=== PATIENT | female | born 1965 | race Caucasian/White ===

== ENCOUNTER → 2016-05-06 | Outpatient (CLI) | payer OTHER ==
[2016-05-06 16:37] VITALS: BP 124/65; PULSE 79; RESP 14; TEMP 98.5; BMI 25.2
[2016-05-06 17:16] LABS: CH 27.6; CHCM 32.4; HCT 42.6 % (34.0-46.0); HDW 2.44; HGB 13.9 gm/dL (11.4-16.0); MCH 27.9 pg (25.0-35.0); MCHC 32.6 g/dL (31.0-37.0); MCV 85.7 fL (80.0-100.0); RBC 4.97 m/uL (3.80-5.40); RDW 13.4 % (11.5-15.5); WBC 9.6 k/uL (3.8-10.6)
[2016-05-06 17:32] LABS: Partial Thromboplastin Time 25.8 sec (22.0-30.0); Prothrombin Time 10.6 sec (9.0-12.0)
[2016-05-06 17:51] LABS: ALT 32 U/L (9-52); AST 21 U/L (14-36); Alkaline Phosphatase 88 U/L (38-126); Anion Gap 9 mmol/L; Blood Urea Nitrogen 13 mg/dL (7-17); Calcium 10.5 mg/dL (8.4-10.2); Carbon Dioxide 30 mmol/L (22-30); Chloride 102 mmol/L (98-107); Cholesterol 210 mg/dL (<200); Glucose 134 mg/dL (74-99); HDL Cholesterol 80 mg/dL (40-60); Iron 76 ug/dL (37-170); Non-African American GFR(MDRD) >60 (>60 ml/min/1.73 sqM); Phosphorous 4.4 mg/dL (2.5-4.5); Potassium 4.5 mmol/L (3.5-5.1); Sodium 141 mmol/L (137-145); Total Bilirubin 0.3 mg/dL (0.2-1.3); Total Protein 7.4 g/dL (6.3-8.2); Triglycerides 64 mg/dL (<150)
[2016-05-06 18:01] LABS: % Iron Saturation 17.6 % (20-50); Prealbumin 28 mg/dL (18-36); Total Iron Binding Capacity 433 ug/dL (265-497)
[2016-05-06 18:57] LABS: Vitamin B12 733 pg/mL (239-931)
[2016-05-06 19:58] LABS: Hemoglobin A1C 5.7 % (4.2-6.1)
[2016-05-13 14:02] LABS: Selenium 196 mcg/L (63-160)
--- NOTE | 2016-06-24 22:32 | P.PN ---
Progress Note - Text DATE OF SERVICE: 05/06/2016 CHIEF COMPLAINT: Panniculitis. HISTORY OF PRESENT ILLNESS: Vianca Goodwin is a 51-year-old female who initially came to the [facility]ariat[facility] in 2011. It has been 5 years. At her height of 5 feet 7-1/2 inches, her heaviest personal weight was 267 pounds. Today she comes in with moderate weight loss down to 163 pounds. She has lost 104 pounds. Percent excess weight loss is well over 100%. Her body mass index has been reduced from 41.3 down to 25.1. Total BMI point reduction is 16.1. Since her last evaluation over 2 years ago she has lost another 20 pounds. She reports multiple changes in her medications including for her depression which is being treated. Separately, she has undergone over 3 to 4-year history of chronic panniculitis. She has undergone treatment topical including systemic with persistent symptoms. Separately, she also reports having abdominal pain along the epigastrium after eating. She has no troubles with liquids. She reports that she is only eating once a day. As a result of her moderate weight loss, she states that her hair is thinner. Now she presents for further evaluation and management. PAST MEDICAL HISTORY: 1. Diabetes, type 2, resolved. 2. Depression. 3. Iron deficiency anemia. 4. COPD. 5. Obstructive sleep apnea, resolved. 6. Osteoarthritis. 7. Panniculitis. PAST SURGICAL HISTORY: 1. Status post Thomas-en-Y gastric bypass. 2. Laparoscopic cholecystectomy. 3. Laparoscopic ventral hernia repair. 4. Upper endoscopy. 5. Colonoscopy. MEDICATIONS: 1. Lamictal. 2. Hydroxyzine. 3. BuSpar. 4. Multivitamin. 5. Motrin. 6. Nexium. 7. Cymbalta. 8. Vitamin B. 9. Calcium. 10. Dulcolax. 11. Aspirin. ALLERGIES: ENVIRONMENTAL. SOCIAL HISTORY: Still actively smoking. Denies any social alcohol use. FAMILY HISTORY: Father recently last year during complications of heart disease. REVIEW OF SYSTEMS: CONSTITUTIONAL: Highest body weight of 267 pounds for a 5 foot 7-1/2 frame. Current weight of 163 pounds. Total weight loss after 5 years of 104 pounds. Percent excess weight loss of 95%. Body mass index reduced from 41.3 down to 25.1. Total BMI point reduction is 16.1. Weight loss in the last 2 years of another 19 pounds. PSYCH: History of depression including bipolar disorder, stable. GASTROINTESTINAL: Reports increased epigastric abdominal pain. Also reports dysphagia to solid foods. HEENT: Denies any troubles with vision or hearing. ENDOCRINE: Resolution of diabetes, type 2. Denies any thyroid disorders. RESPIRATORY: Resolution of obstructive sleep apnea. No reports of pneumonias. CARDIAC: History of dyslipidemia, now resolved. Does have resolution of her hypertension. MUSCULOSKELETAL: Has osteoarthritis, including fibromyalgia. NEURO: No reports of strokes or seizure disorders. HEMATOLOGIC: No reports of DVTs or pulmonary emboli. BREASTS: Prior history of breast biopsies, including abnormal mammograms, that have come back benign. PHYSICAL EXAM: VITAL SIGNS: 98.5, 79, 14, 125/65, 5 feet 7-1/2 inches, 163 pounds. Body mass index of 25.2. ABDOMEN: Soft. Minimal tenderness along the epigastrium. Pannus over 8 pounds. Hyperemia consistent with mild panniculitis. Pannus extends over pubis by over 4 cm. GENERAL: Well-developed pleasant female in no acute distress. HEENT: No scleral icterus. Extraocular movements grossly intact. Head is atraumatic normocephalic. CHEST: Unlabored respirations. Equal bilateral excursions. CARDIOVASCULAR: Regular rate. Regular rhythm. MUSCULOSKELETAL: No clubbing, cyanosis or edema. NEURO: No focal or lateralizing signs. Cranial nerves II through XII grossly intact. PSYCH: Appropriate affect. Alert and oriented to person, place and time. ASSESSMENT: 1. History of panniculitis, medically refractory to treatment. 2. Status post massive weight loss, 104 pounds after 5 years. 3. Morbid obesity due to excess calories, now resolved. 4. Body mass index reduced from 41.3 down to 25.2. 5. Diabetes, type 2, resolved. 6. Hypertension, resolved. 7. Dyslipidemia, resolved. 8. Depression. 9. Bipolar disorder. 10. Chronic tobacco use. 11. Status post Thomas-en-Y gastric bypass. 12. Recurrent panniculitis despite treatment. 13. History of osteoarthritis. 14. Epigastric abdominal pain. 15. Dysphagia. 16. Elevated selenium . 17. Hair loss. PLAN: 1. With her epigastric abdominal pain including dysphagia to solid foods, she is high risk of gastrojejunal stricture. Would recommend upper endoscopy with balloon dilatation. 2. She is over the age of 50 and recommend colonic screening with a colonoscopy. 3. Recommend a bariatric metabolic panel for evaluation of nutritional deficiencies. Recommend correction of her nutritional deficiencies prior to any panniculectomy. 4. As she has over 3+ year history of chronic panniculitis despite treatment, recommend a panniculectomy. She does have history of previous tobacco use. She will need a urine nicotine test. 5. Inpatient hospitalization anticipated. 6. She was also forewarned about pain following her procedure for a panniculectomy which will need to be managed by a pain specialist as well. She is on chronic pain meds. 7. Risk of panniculectomy complications including bleeding, infection, flap failure, cosmetic deformity, placement of drains, abdominal wall seromas, moderate pain following her surgery were described to her in detail for which she demonstrated understanding. 8. A panniculectomy packet was also given to her as well. ADDENDUM: Bariatric metabolic panel was reviewed, demonstrating platelet count elevated at 476. Hemoglobin was normal at 13.9. Glucose elevated at 134. Hemoglobin A1c was moderately reduced at 5.7. Calcium was elevated at 10.5. Percent iron saturation was low at 17.6. Cholesterol was elevated at 210. LDL elevated at 117. HDL elevated at 80. Vitamin D was normal at 30. Selenium was elevated at 196. With her history of hair loss, recommend discontinued any further exposure to selenium in her food. She does have elevated calcium for which repeat calcium is advised. Otherwise, her diabetes type 2 is completely resolved. Again, she is also pending urine nicotine test.
== END | disposition home or self-care (01) ==
LOC: BARWHC3 15:10
PROVIDERS: ATTEND Surgery Plastic and Reconstructive Surgery
DX: Z48.815 Encounter for surgical aftercare following surgery on the digestive system (principal); Z98.84 Bariatric surgery status; E66.01 Morbid (severe) obesity due to excess calories; E21.1 Secondary hyperparathyroidism, not elsewhere classified; E89.1 Postprocedural hypoinsulinemia; D50.8 Other iron deficiency anemias; E44.0 Moderate protein-calorie malnutrition; E55.9 Vitamin D deficiency, unspecified; K74.1 Hepatic sclerosis; N19 Unspecified kidney failure; K50.90 Crohn's disease, unspecified, without complications
CPT/HCPCS: 84255; 84134; 84425; 80061; 80053; 82607; 82728; 83036; 82525; 82746; 83540; 83550; 83735; 84100; 84443; 84590; 84630; 85027; 85610; 85730; 82306; 83970; G0463; 99211

== ENCOUNTER 2016-06-24 07:35 | Day surgery (SDC) | payer OTHER ==
[2016-06-19 12:48] VITALS: BMI 24.7
[~2016-06-24 07:35] MED LIST: LACTATED RINGERS 1,000 ML IV SCH
--- NOTE | 2016-06-24 07:56 | P.GSHP ---
History of Present Illness H&P Date: 06/24/16 CHIEF COMPLAINT: GERD HISTORY OF PRESENT ILLNESS: The patient is a 51-year-old male who presents reports gastroesophageal reflux disease. Upper endoscopy was offered for further evaluation and management. PAST MEDICAL HISTORY: Please see list. PAST SURGICAL HISTORY: Please see list. MEDICATIONS: Please see list. ALLERGIES: Please see list. SOCIAL HISTORY: No illicit drug use FAMILY HISTORY: No reports of Crohn disease or ulcerative colitis. REVIEW OF ORGAN SYSTEMS: CONSTITUTIONAL: No reports of fevers or chills. GI: Denies any blood in stools or constipation. PHYSICAL EXAM: VITAL SIGNS: Stable GENERAL: Well-developed and pleasant in no acute distress. HEENT: No scleral icterus. Extraocular movements grossly intact. Moist buccal mucosa. NECK: Supple without lymphadenopathy. CHEST: Unlabored respirations. Equal bilateral excursions. CARDIOVASCULAR: Regular rate and rhythm. Distal 2+ pulses. ABDOMEN: Soft, nondistended. MUSCULOSKELETAL: No clubbing, cyanosis, or edema. ASSESSMENT: 1. Gastroesophageal reflux disease PLAN: 1. Recommend proceeding with an upper endoscopy Past Medical History Past Medical History: Cancer, Diabetes Mellitus, GERD/Reflux, Hearing Disorder / Deafness, Musculoskeletal Disorder, Osteoarthritis (OA) Additional Past Medical History / Comment(s): PAST HX OF DM PRIOR TO WGT LOSS, NOW POSS HYPOGYLCEMIA. BACK PAIN. Skin CA. GETS NAUSEA WHEN EATING OFTEN, ALOT OF HEARTBURN. History of Any Multi-Drug Resistant Organisms: None Reported Past Surgical History: Bariatric Surgery, Breast Surgery, Section, Cholecystectomy, Hernia Repair, Orthopedic Surgery, Uterine Ablation Additional Past Surgical History / Comment(s): RT Knee SCOPE. KAILEY MULT TOES Surgery. Sinus Surgery. Gastric Bypass 2013. Breast biopsy. CERVICAL CONE PROC. PAIN PROC BACK, NECK. Past Anesthesia/Blood Transfusion Reactions: Previous Problems w/ Anesthesia, Motion Sickness Additional Past Anesthesia/Blood Transfusion Reaction / Comment(s): Woke up once during anesthesia. Mom has difficulty coming out of anesthesia and low b/p. Past Psychological History: Anxiety, Depression, Panic Disorder Additional Psychological History / Comment(s): patient states she has been diagnosed with "Bipolar depression" Smoking Status: Current every day smoker Past Alcohol Use History: Occasional Additional Past Alcohol Use History / Comment(s): Started Smoking at age 16, 1 ppd. Past Drug Use History: Marijuana Additional Drug Use History / Comment(s): OCC USE, NONE RECENTLY. - Past Family History Father History Unknown: Yes Family Medical History: Asthma, Cancer, Congestive Heart Failure (CHF), Diabetes Mellitus, Eye Disorder, Hearing Disorder / Deafness, Hypertension, Seizure Disorder, Skin Disorder, Vascular Disorder Additional Family Medical History / Comment(s): Father also had Leukemia, emphsyma, arthritis, with kidney failure Medications and Allergies Home Medications Medication Instructions Recorded Confirmed Type DULoxetine HCL [Cymbalta] 120 mg PO DAILY 08/02/13 06/19/16 History Esomeprazole Magnesium [NexIUM] 40 mg PO BID 08/02/13 06/19/16 History Aspirin 81 mg PO DAILY 03/29/14 06/19/16 History Ibuprofen [Motrin] 600 mg PO BID PRN 05/02/15 06/19/16 History busPIRone HCl [Buspar] 30 mg PO BID 11/22/15 06/19/16 History Bisacodyl [Dulcolax] 5 mg PO DAILY PRN 12/17/15 06/19/16 History Cholecalciferol [Vitamin D3] 2,000 unit PO DAILY 12/17/15 06/19/16 History hydrOXYzine PAMOATE [Hydroxyzine 25 mg PO BID 12/17/15 06/19/16 History Pamoate] lamoTRIgine [LaMICtal] 200 mg PO DAILY 12/17/15 06/19/16 History Calcium Carbonate [Calcium] 500 mg PO DAILY 05/07/16 06/19/16 History Multivitamins, Thera [Multivitamin] 1 tab PO DAILY 05/07/16 06/19/16 History ARIPiprazole [Abilify] 10 mg PO DAILY 06/19/16 06/19/16 History Biotin (Unknown Dose) 1 cap PO DAILY 06/19/16 History Iron (Unknown Dose) 1 tab PO DAILY 06/19/16 History Loratadine [Claritin] 10 mg PO DAILY 06/19/16 06/19/16 History Allergies Allergy/AdvReac Type Severity Reaction Status Date / Time grass pollen-perennial rye, Allergy ITCHY,WATERY Verified 06/19/16 12:24 standar EYES AND [grass poll-perennial NOSE rye,std] rivaroxaban [From Xarelto] Allergy Unknown Verified 06/19/16 12:24 tape Allergy tears Uncoded 06/19/16 12:24 skin,rash, states "paper tape is ok"
[2016-06-24 07:58] VITALS: TEMP 98.1
[2016-06-24] MEDS ORDERED: LIDOCAINE 1% 20 ML VIAL (10MG/ML) FOR IV START INTRADERMA ONE (08:01)
[2016-06-24] MEDS ORDERED: PROPOFOL 10 MG/ML 20 ML VIAL IV ONE (08:03)
[2016-06-24 08:12] LABS: Glucose,Whole Blood 104 mg/dL (75-99)
--- NOTE | 2016-06-24 08:26 | P.PCN ---
Date of Procedure: 06/24/16 Description of Procedure: PREOPERATIVE DIAGNOSIS: Dysphagia. Nausea with vomiting. POSTOPERATIVE DIAGNOSIS: Dysphagia. Nausea with vomiting. Gastrojejunal stricture. Esophageal tertiary contractions. OPERATION: Esophagogastrojejunoscopy with balloon dilatation,20 mm. SURGEON: Agatha Jaeger MD ANESTHESIA: MAC. INDICATIONS: The patient is a 51-year-old female who presents with a history of dysphagia, gastric bypass including intermittent nausea and vomiting. Benefits and risks of the procedure were described. Informed consent was obtained. DESCRIPTION: The patient was brought into the endoscopy suite and laid in the left lateral decubitus position. After a timeout was confirmed, the procedure was initiated. An Olympus gastroscope was passed along the posterior oropharynx down to the distal esophagus where the squamocolumnar junction was unremarkable. The gastric pouch was entered. A gastrojejunal stricture of 16 mm was found as the adult gastroscope was 9.5 mm in size. A Goodoc balloon dilator was placed through the scope. Final insufflation up to 20 mm was performed with a total of 2 minutes. The scope was advanced up to 60 cm from the incisors into the Thomas limb. The mucosa of the gastrojejunal anastomosis was intact. No chronic gastrojejunal marginal ulcer was encountered. No full-thickness injury was encountered. The GI tract was desufflated. The patient tolerated the procedure well. FINDINGS: Squamocolumnar junction unremarkable at 40 cm. Stricture of approximately 16 mm encountered. No chronic gastrojejunal ulceration encountered. Successful balloon dilatation to 20 mm. Diaphragmatic hiatus at 42 cm. Gastric pouch 3 cm. Blind jejunal limb of 7 cm. Multiple esophageal tertiary contractions suspicious for esophageal dysmotility. RECOMMENDATIONS: Upper endoscopy as needed. Plan - Discharge Summary Discharge Medication List DULoxetine HCL [Cymbalta] 120 mg PO DAILY 08/02/13 [History] Esomeprazole Magnesium [NexIUM] 40 mg PO BID 08/02/13 [History] Aspirin 81 mg PO DAILY 03/29/14 [History] Ibuprofen [Motrin] 600 mg PO BID PRN 05/02/15 [History] busPIRone HCl [Buspar] 30 mg PO BID 11/22/15 [History] Bisacodyl [Dulcolax] 5 mg PO DAILY PRN 12/17/15 [History] Cholecalciferol [Vitamin D3] 2,000 unit PO DAILY 12/17/15 [History] hydrOXYzine PAMOATE [Hydroxyzine Pamoate] 25 mg PO BID 12/17/15 [History] lamoTRIgine [LaMICtal] 200 mg PO DAILY 12/17/15 [History] Calcium Carbonate [Calcium] 500 mg PO DAILY 05/07/16 [History] Multivitamins, Thera [Multivitamin] 1 tab PO DAILY 05/07/16 [History] ARIPiprazole [Abilify] 10 mg PO DAILY 06/19/16 [History] Biotin (Unknown Dose) 1 cap PO DAILY 06/19/16 [History] Iron (Unknown Dose) 1 tab PO DAILY 06/19/16 [History] Loratadine [Claritin] 10 mg PO DAILY 06/19/16 [History]
[2016-06-24 08:45] VITALS: BP 113/56; PULSE 80; RESP 16
== END 2016-06-24 09:11 | disposition home or self-care (01) ==
LOC: ORWHC2ENDO 07:35
PROVIDERS: ATTEND Surgery Plastic and Reconstructive Surgery
DX: K31.89 Other diseases of stomach and duodenum (principal); K22.8 Other specified diseases of esophagus; Z98.84 Bariatric surgery status; K21.9 Gastro-esophageal reflux disease without esophagitis; M19.90 Unspecified osteoarthritis, unspecified site; F31.9 Bipolar disorder, unspecified; F41.9 Anxiety disorder, unspecified; F41.0 Panic disorder [episodic paroxysmal anxiety]; F17.200 Nicotine dependence, unspecified, uncomplicated; Z79.82 Long term (current) use of aspirin; Z79.899 Other long term (current) drug therapy; Z88.8 Allergy status to other drugs, medicaments and biological substances; Z91.09 Other allergy status, other than to drugs and biological substances
CPT/HCPCS: 81025; 43245; J2704; C1726; 43249

== ENCOUNTER → 2016-07-22 | Outpatient (CLI) | payer OTHER ==
[2016-07-22 13:39] VITALS: BP 117/61; PULSE 97; RESP 16; TEMP 98.5; BMI 27.3
--- NOTE | 2016-09-13 10:34 | PN ---
DATE OF SERVICE: 07/22/2016 CHIEF COMPLAINT: Panniculitis. HISTORY OF PRESENT ILLNESS: Vianca Goodwin is a 51-year-old female who has been to the [facility] back in 2011. At her height of 5 feet 7-1/2 inches, her ideal body weight is 163 pounds. Her personal heaviest weight was 267 pounds. Today she comes in weighing 177 pounds. She has maintained at least a 90 pound weight loss. Since her last visit 3 months ago she has actually gained 14 pounds. She reports personal stressors. Percent excess weight loss is 82%. Body mass index is reduced from 41.3 down to 27.4. She is only 19 pounds overweight. Total BMI point reduction is 14. Separately, she reports intermittent gastroesophageal reflux disease and reports smoking again. PAST MEDICAL HISTORY: 1. Diabetes, type 2, resolved. 2. Depression. 3. Iron deficiency anemia. 4. COPD. 5. Obstructive sleep apnea, resolved. 6. Osteoarthritis. 7. Panniculitis. PAST SURGICAL HISTORY: 1. Status post Thomas-en-Y gastric bypass. 2. Laparoscopic cholecystectomy. 3. Laparoscopic ventral hernia repair. 4. Upper endoscopy. 5. Colonoscopy. MEDICATIONS: 1. Lamictal. 2. Hydroxyzine. 3. BuSpar. 4. Multivitamin. 5. Motrin. 6. Nexium. 7. Cymbalta. 8. Vitamin B. 9. Calcium. 10. Dulcolax. 11. Aspirin. ALLERGIES: ENVIRONMENTAL. SOCIAL HISTORY: Still actively smoking. Denies any social alcohol use. FAMILY HISTORY: Father recently last year during complications of heart disease. REVIEW OF SYSTEMS: CONSTITUTIONAL: At her height of 5 feet 7-1/2 inches, her ideal body weight is 163 pounds. Her personal heaviest weight was 267 pounds. Today she comes in weighing 177 pounds. She has maintained at least a 90 pound weight loss. Since her last visit 3 months ago she has actually gained 14 pounds. She reports personal stressors. Percent excess weight loss is 82%. Body mass index is reduced from 41.3 down to 27.4. She is only 19 pounds overweight. Total BMI point reduction is 14. PSYCH: History of depression including bipolar disorder, stable. GASTROINTESTINAL: Reports increased epigastric abdominal pain. Also reports dysphagia to solid foods. HEENT: Denies any troubles with vision or hearing. ENDOCRINE: Resolution of diabetes, type 2. Denies any thyroid disorders. RESPIRATORY: Resolution of obstructive sleep apnea. No reports of pneumonias. CARDIAC: History of dyslipidemia, now resolved. Does have resolution of her hypertension. MUSCULOSKELETAL: Has osteoarthritis, including fibromyalgia. NEURO: No reports of strokes or seizure disorders. HEMATOLOGIC: No reports of DVTs or pulmonary emboli. BREASTS: Prior history of breast biopsies, including abnormal mammograms, that have come back benign. PHYSICAL EXAM: VITAL SIGNS: 98.5, 97, 16, 117/61, 5 foot 7 1/2, 177 pounds. Body mass index 27.4. ABDOMEN: Hyperemia along the skin consistent with panniculitis. Pannus over 8 pounds. Pannus extends over pubis by over 4 cm. GENERAL: Well-developed pleasant female in no acute distress. HEENT: No scleral icterus. Extraocular movements grossly intact. Head is atraumatic normocephalic. CHEST: Unlabored respirations. Equal bilateral excursions. CARDIOVASCULAR: Regular rate. Regular rhythm. MUSCULOSKELETAL: No clubbing, cyanosis or edema. NEURO: No focal or lateralizing signs. Cranial nerves II through XII grossly intact. PSYCH: Appropriate affect. Alert and oriented to person, place and time. ASSESSMENT: 1. History of panniculitis, medically refractory to treatment. 2. Status post massive weight loss of 90 pounds. 3. Morbid obesity due to excess calories, now resolved. 4. Body mass index reduced from 41.3 down to 27.4. 5. Diabetes, type 2, resolved. 6. Hypertension, resolved. 7. Dyslipidemia, resolved. 8. Depression. 9. Bipolar disorder. 10. Chronic tobacco use. 11. Status post Thomas-en-Y gastric bypass. 12. History of osteoarthritis. PLAN: 1, On further discussion, she does report intermittent troubles with swallowing. Actually, she may benefit from manometry. 2. She is also seeking a panniculectomy as she has had long-standing 5 year history of chronic panniculitis with poor response to medical treatment and therapies using Nystatin powder. 3. She was advised that prior to any surgical intervention especially with regards to panniculectomy, that she would need complete tobacco cessation preoperatively, at least by 4 weeks including postoperatively to minimize risk for a flap failure or infection. 4. Recommend follow-up upon completion of her nicotine use. 5. Recommend urine nicotine test as well. ADDENDUM: Bariatric metabolic panel was reviewed, demonstrating hemoglobin was normal at 13.9. Glucose was elevated at 134. Hemoglobin A1c was 5.7%. Calcium is elevated at 10.5. Percent iron saturation was 17.6%. Cholesterol was elevated at 210. LDL was elevated at 117. HDL was protective and elevated at 80. Vitamin D was within low normal at 30. MILE JOHNSON DO [facility] [place] [facility]
== END | disposition home or self-care (01) ==
LOC: BARWHC3 13:17
PROVIDERS: ATTEND Surgery Plastic and Reconstructive Surgery
DX: Z48.815 Encounter for surgical aftercare following surgery on the digestive system (principal); M79.3 Panniculitis, unspecified; Z98.84 Bariatric surgery status; Z79.899 Other long term (current) drug therapy; F17.200 Nicotine dependence, unspecified, uncomplicated; Z91.048 Other nonmedicinal substance allergy status; Z68.27 Body mass index [BMI] 27.0-27.9, adult; F32.9 Major depressive disorder, single episode, unspecified
CPT/HCPCS: 99211

== ENCOUNTER → 2016-08-11 | Outpatient (CLI) | payer OTHER ==
--- NOTE | 2016-08-11 21:26 | PN ---
Reason for the follow-up: Insomnia. Vianca is a 51-year-old female patient. She is having issues with insomnia and for that reason, she came in for re-evaluation. Note that the patient was evaluated for obstructive sleep apnea back in 2013 and her sleep study was negative. At that time, she used to weigh around 217 pounds and it seems that in the patient has continued to lose weight and currently she is down to 183. As such, with her ongoing weight loss I doubt that she may have an underlying sleep breathing disorder and this has been essentially ruled out. The patient however, has history of chronic anxiety and depression and she is on a multitude of medications to control anxiety including combination of Abilify, Cymbalta, Lamictal and Buspar. Note that she is able to induce sleep, however, she wakes up every hour or 2 and sometimes she has difficulty in going back to sleep. As such, her sleep is fragmented and she is waking up constantly and she is feeling tired and fatigued during the day and this seems to be affecting her quality of life. Note that the patient was treated with clonazepam for many years and at one point, she was up to 6 mg of clonazepam. There was a concern that this was making her drowsy and sleepy and she was slurring on this high dose of clonazepam. Based on that, she was admitted to [facility] where she was weaned off clonazepam successfully. Currently she is not taking any form of benzodiazepines. Since she came off Clonazepam, insomnia symptoms got worse. Based on that, the patient was switched to Seroquel which gave her significant side effects and she ended up quitting the treatment. At this point in time, she is going to bed between 8 to 11:00 p.m., wakes up at 6:00 a.m. in the morning. Yet she is not averaging more than 4 to 5 hours of sleep. She is looking for alternatives. As mentioned, she has history of chronic anxiety, depression and bipolar disorder. She is obese and she has undergone previous bariatric surgery. No restlessness in the lower extremities. No caffeine intake. No head trauma. No meningitis. No substance abuse other than the ones mentioned above. MEDICATIONS: 1. Abilify. 2. Cymbalta. 3. Lamictal. 4. Buspar. 5. Vistaril. 6. Nexium. Vitals: BP 113/73, pulse 80, respirations 16, temperature 98.6, saturation 96% on room air. BMI is 29.5. Weight 183. Height is 5 foot 6. Neck size 15-3/4 inches. GENERAL APPEARANCE: Calm, comfortable. HEENT: Negative for JVD. There is no goiter, neck masses. LUNGS: Clear to auscultation. HEART: Sounds are regular rate and rhythm. Normal S1, S2. No S3, no S4. No murmurs. ABDOMEN: Soft, nontender. No organomegaly. EXTREMITIES: No edema. There is no cyanosis, or clubbing at this point. IMPRESSION: 1. Chronic insomnia. 2. Chronic benzodiazepine dependence recovered and the patient is currently off clonazepam. 3. Worsening insomnia probably related to Clonazepam withdrawal. ( ) the patient is on a combination of Abilify, Cymbalta, Lamictal and Buspar. 4. Chronic anxiety disorder. 5. Chronic bipolar disorder/depression. 6. Limit number of hours of sleep with chronic fatigue and tiredness and sleepiness during the day. PLAN: 1. We will avoid using of benzodiazepines. We will try the patient on 10 mg of Ambien on a trial basis to improve her sleep maintenance. 2. Continue Abilify, Cymbalta, Lamictal and Buspar. 3. Follow up with psychiatry. 4. Follow up with me. 5. No need for sleep study. We will make further adjustments of medication based on overall clinical response.
== END | disposition home or self-care (01) ==
LOC: SLEEP 14:21
PROVIDERS: ATTEND Internal Medicine Critical Care Medicine
DX: F51.04 Psychophysiologic insomnia (principal); F41.9 Anxiety disorder, unspecified; F31.9 Bipolar disorder, unspecified; Z79.899 Other long term (current) drug therapy; E66.9 Obesity, unspecified; Z68.29 Body mass index [BMI] 29.0-29.9, adult; Z98.84 Bariatric surgery status

== ENCOUNTER → 2016-10-07 | Outpatient (CLI) | payer OTHER ==
[2016-10-07 11:18] VITALS: BP 109/73; PULSE 79; RESP 16; TEMP 97.1
--- NOTE | 2016-10-07 11:26 | P.PN ---
Progress Note - Text Patient returns for followup for chronic back pain with radiation to both legs. Patient has not been to our clinic in nearly two years, after undergoing bilateral lumbar RFA and previously LESIs and SIJ injections. She was discharged from narcotic agreement secondary to her violation and overuse of medication. She returns to our clinic with similar complaints of pain and requesting repeat lumbar RFA. Patient continues on occasional tramadol medications for pain from PCP with good relief. Patient denies adverse drug effects from medications. Today, pt denies new-onset weakness, bowel/bladder incontinence, or any other signs or symptoms of cauda equina syndrome. There are no signs of acute intoxication, and no indications of medication diversion or overuse. In addition to above, 13-point review of systems is also negative for chest pain , shortness of breath, changes in vision, changes in hearing, new onset weakness , abdominal pain, diarrhea, extreme fatigue, malaise, fever, skin changes, homicidal or suicidal ideation, or bowel or bladder incontinence. Vital Signs: Reviewed in EMR Gen: WDWN, AAOx3, NAD HEENT: NCAT, EOMI, hearing grossly normal Pulm: resp unlabored Abd: soft, NT, ND Neck: supple, trachea midline ROM in flexion lumbar spine: reduced ROM in extension lumbar spine: reduced Lumbar paravertebral tenderness: + Facet loading: ++ bilateral SI joint tenderness: + bilateral R > L Santana's test: + R > L Straight leg raise: neg Lower extremity: decreased ROM dorsiflexion/plantarflexion strength, hip flexion/extension, and knee flexion/extension secondary to pain Neuro: CN II-XII grossly intact, muscle strength lower extremities PRESERVED Imaging: Reviewed in EMR Assessment: 1. lumbar spondylosis without myelopathy 2. SIJ dysfunction 3. chronic pain syndrome Plan: 1. Explanation: Opioid and psychological risk scores were reviewed. Diagnoses , prognoses, and multiple treatment options including but not limited to physical therapy, interventional therapies, adjuvant medical therapies, narcotic medication therapies, and surgery were discussed with the patient and all questions were answered to the patient's satisfaction. 2. Opioid agreement: no opioids prescribed today 3. Counseling: The patient was counseled extensively on SMOKING CESSATION, BODY MASS INDEX, EXERCISE. Specifically, the patient was instructed regarding the importance of smoking cessation, weight control, and exercise in the context of both chronic pain and overall health. 4. Procedures: R lumbar RFA, then left 5. Consultations: None 6. Investigations: repeat MRI lumbar spine prior to RFA 7. Medications: none prescribed 8. Disposition: f/u for procedure as scheduled PQRS measures: 1-Patient's medications are documented in the chart. 2-Tobacco use is positive, counseling given 3-Patient has not had a pneumococcal vaccine. 4-Advanced care planning discussed, patient unable to give. 5-Opioid contract NOT signed with the patient. 6-Pain positive, follow-up visit or procedure scheduled 7-Patient's blood pressure measured and documented, and within normal limits. 8-Patient's weight was measured, and body mass index ABOVE the normal limits, and counseling was done. Patient instructed to follow up with PCP. 9-Patient WAS NOT identified as an unhealthy alcohol user.
== END | disposition home or self-care (01) ==
LOC: PNWHC3 10:54
PROVIDERS: ATTEND Anesthesiology
DX: M51.34 Other intervertebral disc degeneration, thoracic region (principal); M47.816 Spondylosis without myelopathy or radiculopathy, lumbar region; M53.3 Sacrococcygeal disorders, not elsewhere classified; G89.4 Chronic pain syndrome
CPT/HCPCS: 99211

== ENCOUNTER → 2016-10-14 | Outpatient (CLI) | payer OTHER ==
--- NOTE | 2016-10-14 08:02 | MR ---
EXAMINATION TYPE: MR lumbar spine wo con DATE OF EXAM: 10/14/2016 7:04 AM COMPARISON: 06/25/2014 HISTORY: lumbar spondylosis Multiplanar, MultiSpin echo imaging of the lumbar spine was performed. L1-L2: Normal disc appearance without desiccation. No herniation, protrusion or disc bulging. No ca nal stenosis is present. Foramina are patent bilaterally. L2-L3: Normal disc appearance without desiccation. No herniation, protrusion or disc bulging. No ca nal stenosis is present. Foramina are patent bilaterally. L3-L4: Normal disc appearance without desiccation. No herniation, protrusion or disc bulging. No ca nal stenosis is present. Foramina are patent bilaterally. L4-L5: There is mild decreased signal and loss of height compatible with mild degenerative disc disea se. Very mild posterocentral disc bulge is noted without herniation protrusion or central stenosis. T he visualized neural foramina are patent bilaterally. L5-S1: Normal disc appearance without desiccation. No herniation, protrusion or disc bulging. No ca nal stenosis is present. Foramina are patent bilaterally. Lumbar segments are intact. No paraspinal masses are identified. Conus medullaris has a normal appe arance. 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 IMPRESSION: 1. Degenerative disc disease with disc bulging at L4-5.
== END | disposition home or self-care (01) ==
LOC: RADMRIMAIN 06:23
PROVIDERS: ATTEND Anesthesiology
DX: M51.36 Other intervertebral disc degeneration, lumbar region (principal); M51.26 Other intervertebral disc displacement, lumbar region
CPT/HCPCS: 72148

== ENCOUNTER → 2016-10-16 | Outpatient (CLI) | payer OTHER ==
[2016-10-16 08:53] LABS: CH 27.9; CHCM 32.9; HCT 42.7 % (34.0-46.0); HDW 2.45; MCH 28.1 pg (25.0-35.0); MCHC 32.9 g/dL (31.0-37.0); MCV 85.3 fL (80.0-100.0); Mean Platelet Volume 7.7; RDW 14.6 % (11.5-15.5); WBC 13.2 k/uL (3.8-10.6)
[2016-10-16 09:00] LABS: Appearance,Urine Cloudy (Clear); Bacteria,Urine Rare /hpf; Bilirubin,Urine Negative (Negative); Glucose,Urine (UA) Negative (Negative); Ketones,Urine Negative (Negative); Leukocyte Esterase,Urine Negative (Negative); Mucus,Urine Moderate /hpf; Nitrite,Urine Negative (Negative); Particle Count 6982; Protein,Urine Trace (Negative); Specific Gravity,Urine 1.017 (1.001-1.035); Squamous Epithelial Cell,Urine 14 /hpf (0-4); UA Billing (MACRO vs. MICRO) MICRO; WBC,Urine 2 /hpf (0-5)
[2016-10-16 09:02] LABS: ALT 31 U/L (9-52); AST 20 U/L (14-36); Alkaline Phosphatase 79 U/L (38-126); Anion Gap 6 mmol/L; Blood Urea Nitrogen 9 mg/dL (7-17); Calcium 9.8 mg/dL (8.4-10.2); Carbon Dioxide 31 mmol/L (22-30); Chloride 104 mmol/L (98-107); Cholesterol 203 mg/dL (<200); Glucose 100 mg/dL (74-99); HDL Cholesterol 68 mg/dL (40-60); Non-African American GFR(MDRD) >60 (>60 ml/min/1.73 sqM); Potassium 4.9 mmol/L (3.5-5.1); Sodium 141 mmol/L (137-145); Total Bilirubin 0.5 mg/dL (0.2-1.3); Total Protein 6.5 g/dL (6.3-8.2); Triglycerides 153 mg/dL (<150)
[2016-10-16 11:39] LABS: Hemoglobin A1C 6.2 % (4.2-6.1)
[2016-10-16 16:10] LABS: Urine Creatinine 184.7 mg/dL
== END | disposition home or self-care (01) ==
LOC: LABWHC1 08:09
PROVIDERS: ATTEND Family Medicine
DX: Z00.00 Encounter for general adult medical examination without abnormal findings (principal); E11.9 Type 2 diabetes mellitus without complications; F31.60 Bipolar disorder, current episode mixed, unspecified; Z79.899 Other long term (current) drug therapy
CPT/HCPCS: 36415; 80053; 80061; 81001; 82043; 82306; 82570; 83036; 84439; 84443; 85027

== ENCOUNTER → 2016-10-27 | Outpatient (CLI) | payer OTHER ==
[2016-10-27 15:37] LABS: Basophils # (A) 0.1 k/uL (0-0.2); Basophils % (A) 1 %; CH 28.4; CHCM 32.7; Eosinophils # (A) 0.5 k/uL (0-0.7); Eosinophils % (A) 4 %; HCT 41.4 % (34.0-46.0); HDW 2.37; HGB 13.2 gm/dL (11.4-16.0); Luc # (Auto) 0.26; Luc % (Auto) 2; Lymphocytes # (A) 2.3 k/uL (1.0-4.8); Lymphocytes % (A) 22 %; MCH 27.9 pg (25.0-35.0); MCV 87.1 fL (80.0-100.0); Mean Platelet Volume 7.7; Monocytes # (A) 0.9 k/uL (0-1.0); Monocytes % (A) 8 %; Neutrophils # (A) 6.8 k/uL (1.3-7.7); Neutrophils % (A) 63 %; RBC 4.75 m/uL (3.80-5.40); RDW 14.9 % (11.5-15.5); WBC 10.8 k/uL (3.8-10.6); WBC (Perox) 10.61
== END ==
LOC: LABWHC1 15:02
PROVIDERS: ATTEND Family Medicine
DX: R89.9 Unspecified abnormal finding in specimens from other organs, systems and tissues (principal)
CPT/HCPCS: 36415; 85025

== ENCOUNTER → 2016-11-06 | Outpatient (CLI) | payer OTHER ==
--- NOTE | 2016-11-10 07:43 | MM ---
Reason for exam: screening (asymptomatic). Last mammogram was performed 2 years ago. History: Patient has history of other cancer at age 46. Family history of breast cancer in maternal grandmother. Benign US breast aspiration ea add LT of the left breast, November 30, 2014. Benign US breast aspiration ea add LT of the left breast, November 30, 2014. Benign US breast aspiration single LT of the left breast, November 30, 2014. Benign US breast aspiration single RT of the right breast, November 30, 2014. Benign right mammotome panel of the right breast, May 29, 2013. Physical Findings: A clinical breast exam by your physician is recommended on an annual basis and results should be correlated with mammographic findings. MG Screening Mammo w CAD Bilateral CC and MLO view(s) were taken. Prior study comparison: November 09, 2014, bilateral MG diagnostic mammo w CAD K[facility]. December 26, 2013, bilateral MG diagnostic mammo w CAD [facility]. The breast tissue is extremely dense which could obscure a lesion on mammography. Finding: There are typically benign equal density (isodense), circumscribed round masses located 12 cm from the nipple in the upper outer quadrant of both breasts, an enlarging areas. There is a chronic nodularity bilaterally. New finding since November 09, 2014 and December 26, 2013. ASSESSMENT: Incomplete: need additional imaging evaluation, BI-RAD 0 RECOMMENDATION: Ultrasound of the left breast. [facility] will attempt to contact patient to return for ultrasound.
== END | disposition home or self-care (01) ==
LOC: RADMAMWWP 07:14
PROVIDERS: ATTEND Family Medicine
DX: Z12.31 Encounter for screening mammogram for malignant neoplasm of breast (principal)

== ENCOUNTER → 2016-11-11 | Outpatient (CLI) | payer OTHER ==
--- NOTE | 2016-11-11 10:03 | USB ---
Reason for exam: additional evaluation requested from abnormal screening. History: Patient has history of other cancer at age 46. Family history of breast cancer in maternal grandmother. Benign US breast aspiration ea add LT of the left breast, November 30, 2014. Benign US breast aspiration ea add LT of the left breast, November 30, 2014. Benign US breast aspiration single LT of the left breast, November 30, 2014. Benign US breast aspiration single RT of the right breast, November 30, 2014. Benign right mammotome panel of the right breast, May 29, 2013. Physical Findings: Nurse Summary: bilateral palpables (nurse kp). US Breast Workup Limited KAILEY Right breast ultrasound demonstrates a 1.4 x 0.6 x 1.1cm oval, cystic lesion at 9 o'clock, a 1.6 x 0.9 x 1.8cm oval, cystic lesion at 10 o'clock, a 1.4 x 1.0 x 1.1cm oval, lobular, cystic lesion at 11 o'clock and a 1.3 x 0.6 x 1.2cm lobular, cystic lesion at 1 o'clock. Left breast ultrasound demonstrates a 2.0 x 1.3 x 2.5cm oval, cystic lesion at 12 o'clock, a 1.5 x 1.0 x 1.4cm oval, cystic lesion at 2 o'clock, a 1.9 x 0.9 x 1.4cm cystic lesion at 2 o'clock and a 0.9 x 0.9 x 1.3cm cystic lesion at 3 o'clock. All cysts. No suspicious findings. These results were verbally communicated with the patient and result sheet given to the patient on 11/11/16. ASSESSMENT: Benign, BI-RAD 2 RECOMMENDATION: Return to routine screening mammogram schedule for both breasts.
== END | disposition home or self-care (01) ==
LOC: RADUSWWP 08:20
PROVIDERS: ATTEND Family Medicine
DX: R92.8 Other abnormal and inconclusive findings on diagnostic imaging of breast (principal)

== ENCOUNTER → 2017-02-16 | Outpatient (CLI) | payer OTHER ==
[2017-02-16 13:02] LABS: CH 27.4; CHCM 32.2; HCT 44.7 % (34.0-46.0); HDW 2.46; HGB 14.6 gm/dL (11.4-16.0); MCHC 32.6 g/dL (31.0-37.0); MCV 85.7 fL (80.0-100.0); Mean Platelet Volume 7.9; RBC 5.21 m/uL (3.80-5.40); RDW 14.5 % (11.5-15.5); WBC 9.6 k/uL (3.8-10.6)
[2017-02-16 13:07] LABS: Appearance,Urine Cloudy (Clear); Bacteria,Urine Occasional /hpf; Bilirubin,Urine Negative (Negative); Glucose,Urine (UA) Negative (Negative); Ketones,Urine Negative (Negative); Leukocyte Esterase,Urine Negative (Negative); Mucus,Urine Rare /hpf; Nitrite,Urine Negative (Negative); PH, Urine 7.5 (5.0-8.0); Particle Count 12714; Protein,Urine Trace (Negative); Specific Gravity,Urine 1.018 (1.001-1.035); Squamous Epithelial Cell,Urine 19 /hpf (0-4); UA Billing (MACRO vs. MICRO) MICRO; WBC,Urine 9 /hpf (0-5)
[2017-02-19 10:03] LABS: Lyme IgG/IgM Interp NEGATIVE (NEGATIVE)
== END | disposition home or self-care (01) ==
LOC: LABWHC1 12:21
PROVIDERS: ATTEND Psychiatry & Neurology Psychiatry
DX: E03.9 Hypothyroidism, unspecified (principal); E11.9 Type 2 diabetes mellitus without complications
CPT/HCPCS: 36415; 80306; 81001; 83001; 83036; 84165; 84443; 84460; 85027; 86618

== ENCOUNTER → 2017-02-19 | Outpatient (CLI) | payer OTHER | END | disposition home or self-care (01) | LOC: LABWHC1 12:07 | PROVIDERS: ATTEND Family Medicine | DX: E03.9 Hypothyroidism, unspecified (principal) | CPT/HCPCS: 36415; 84439; 84443; 84481 ==

== ENCOUNTER → 2017-05-12 | Outpatient (CLI) | payer OTHER ==
--- NOTE | 2017-05-12 11:57 | USB ---
Reason for exam: clinical finding. History: Patient has history of other cancer at age 46. Family history of breast cancer in maternal grandmother. Benign US breast aspiration ea add LT of the left breast, November 30, 2014. Benign US breast aspiration ea add LT of the left breast, November 30, 2014. Benign US breast aspiration single LT of the left breast, November 30, 2014. Benign US breast aspiration single RT of the right breast, November 30, 2014. Benign right mammotome panel of the right breast, May 29, 2013. Indicated problem(s): palpable abnormality in both breasts. Physical Findings: Nurse Summary: bilateral palpables (nurse dw). US Breast BILAT Right breast ultrasound includes all four quadrants, the retroareolar region and axilla. Finding demonstrates several oval, cystic lesions measuring 0.9 x 0.8 x 0.5cm at 1 o'clock (simple cyst), 0.5 x 0.6 x 0.4cm at 6 o'clock, 0.9 x 1.1 x 0.8cm at 9 o'clock, 0.3 x 0.4 x 0.4cm at 10 o'clock, 1.1 x 1.3 x 0.4cm at 10 o'clock, 1.8 x 1.4 x 0.8cm at 11 o'clock, 1.0 x 0.9 x 0.9cm at 11 o'clock and 1.2 x 0.8 x 0.7cm at 11:30 BB. Left breast ultrasound includes all four quadrants, the retroareolar region and axilla. Finding demonstrates several oval, cystic lesion measuring 2.0 x 1.8 x 1.5cm at 12 o'clock, 1.9 x 2.3 x 1.4cm at 1 o'clock, 1.6 x 1.8 x 1.3cm at 2 o'clock and 2.0 x 1.4 x 1.4cm at 10 o'clock. All benign appearing cysts. These results were verbally communicated with the patient and result sheet given to the patient on 05/12/17. ASSESSMENT: Benign, BI-RAD 2 RECOMMENDATION: Return to routine screening mammogram schedule for both breasts.
[2017-05-12 12:56] LABS: T4, Free (Free Thyroxine) 0.93 ng/dL (0.78-2.19)
== END | disposition home or self-care (01) ==
LOC: RADUSWWP 09:45
PROVIDERS: ATTEND Family Medicine
DX: N63.0 Unspecified lump in unspecified breast (principal); R94.6 Abnormal results of thyroid function studies
CPT/HCPCS: 36415; 84439; 84443; 84481

== ENCOUNTER → 2017-05-18 | Outpatient (CLI) | payer OTHER ==
[2017-05-18 10:59] LABS: HCT 45.9 % (34.0-46.0); HGB 14.5 gm/dL (11.4-16.0); MCH 27.1 pg (25.0-35.0); MCHC 31.6 g/dL (31.0-37.0); MCV 85.8 fL (80.0-100.0); Mean Platelet Volume 6.9; Platelet Count 438 k/uL (150-450); RBC 5.35 m/uL (3.80-5.40); RDW 13.1 % (11.5-15.5); WBC 9.4 k/uL (3.8-10.6)
[2017-05-18 11:06] LABS: ALT 25 U/L (9-52); AST 20 U/L (14-36); Albumin 4.7 g/dL (3.5-5.0); Alkaline Phosphatase 84 U/L (38-126); Anion Gap 10 mmol/L; Blood Urea Nitrogen 10 mg/dL (7-17); Calcium 10.1 mg/dL (8.4-10.2); Carbon Dioxide 29 mmol/L (22-30); Chloride 103 mmol/L (98-107); Cholesterol 239 mg/dL (<200); Glucose 109 mg/dL (74-99); HDL Cholesterol 69 mg/dL (40-60); LDL Cholesterol,Calculated 142 mg/dL (0-99); Potassium 4.5 mmol/L (3.5-5.1); Sodium 142 mmol/L (137-145); Total Bilirubin 0.5 mg/dL (0.2-1.3); Total Protein 7.5 g/dL (6.3-8.2); Triglycerides 139 mg/dL (<150)
[2017-05-18 11:43] LABS: Appearance,Urine Cloudy (Clear); Bilirubin,Urine Negative (Negative); Blood,Urine Negative (Negative); Color,Urine Yellow; Glucose,Urine (UA) Negative (Negative); Ketones,Urine Negative (Negative); Leukocyte Esterase,Urine Negative (Negative); Mucus,Urine Many /hpf; Nitrite,Urine Negative (Negative); Protein,Urine 1+ (Negative); RBC,Urine 2 /hpf (0-5); Specific Gravity,Urine 1.021 (1.001-1.035); Squamous Epithelial Cell,Urine 24 /hpf (0-4); WBC,Urine 2 /hpf (0-5)
[2017-05-18 16:38] LABS: Vitamin D 25 Hydroxy 26.8 ng/mL (30.0-100.0)
[2017-05-18 18:12] LABS: Hepatitis C IgG Antibody Non-Reactive (Non-Reactive)
[2017-05-18 22:29] LABS: Hemoglobin A1C 5.7 % (4.0-6.0)
== END | disposition home or self-care (01) ==
LOC: LABWHC1 10:01
PROVIDERS: ATTEND Family Medicine
DX: Z00.00 Encounter for general adult medical examination without abnormal findings (principal); E11.9 Type 2 diabetes mellitus without complications; R68.2 Dry mouth, unspecified
CPT/HCPCS: 36415; 80053; 80061; 81001; 82043; 82306; 82570; 83036; 84443; 85027; 86235; 86803

== ENCOUNTER → 2017-06-28 | Outpatient (CLI) | payer OTHER ==
--- NOTE | 2017-06-28 13:15 | XR ---
EXAMINATION TYPE: XR lumbosacral spine min 4V DATE OF EXAM: 06/28/2017 CLINICAL HISTORY: pain COMPARISON: NONE TECHNIQUE: Frontal, lateral, and oblique images of the lumbar spine are obtained. FINDINGS: There are 5 lumbar type vertebral bodies identified. The lumbar spine shows satisfactory alignment without evidence of acute fracture or dislocation. Vertebral body heights are within normal limits. Moderate degenerative disc space narrowing. Moderate lumbar facet joint arthropathy. Ventral spondylosis evident. The overlying soft tissue appears unremarkable. IMPRESSION: No acute fracture or dislocation is seen in the lumbar spine.ICD 10 NO FRACTURE, INITIAL EVALUATION
[2017-06-28 13:40] LABS: ALT 20 U/L (9-52); AST 20 U/L (14-36); Albumin 4.8 g/dL (3.5-5.0); Alkaline Phosphatase 80 U/L (38-126); Anion Gap 13 mmol/L; Blood Urea Nitrogen 12 mg/dL (7-17); Calcium 10.7 mg/dL (8.4-10.2); Carbon Dioxide 29 mmol/L (22-30); Chloride 102 mmol/L (98-107); Glucose 109 mg/dL (74-99); Potassium 4.9 mmol/L (3.5-5.1); Sodium 144 mmol/L (137-145); Total Bilirubin 0.5 mg/dL (0.2-1.3); Total Protein 7.8 g/dL (6.3-8.2)
[2017-06-28 13:46] LABS: Basophils # (A) 0.1 k/uL (0-0.2); Basophils % (A) 1 %; Eosinophils # (A) 0.5 k/uL (0-0.7); Eosinophils % (A) 6 %; HCT 45.8 % (34.0-46.0); HGB 14.7 gm/dL (11.4-16.0); Lymphocytes # (A) 2.3 k/uL (1.0-4.8); Lymphocytes % (A) 27 %; MCHC 32.2 g/dL (31.0-37.0); MCV 83.8 fL (80.0-100.0); Mean Platelet Volume 7.6; Monocytes # (A) 0.5 k/uL (0-1.0); Monocytes % (A) 6 %; Neutrophils % (A) 59 %; Platelet Count 478 k/uL (150-450); RBC 5.46 m/uL (3.80-5.40); RDW 13.7 % (11.5-15.5); WBC 8.5 k/uL (3.8-10.6)
[2017-06-28 13:57] LABS: T4, Free (Free Thyroxine) 0.92 ng/dL (0.78-2.19)
== END | disposition home or self-care (01) ==
LOC: LABWHC1 12:26
PROVIDERS: ATTEND Physician Assistant
DX: M54.16 Radiculopathy, lumbar region (principal); R11.0 Nausea; R63.4 Abnormal weight loss
CPT/HCPCS: 36415; 72110; 80053; 84439; 84443; 84481; 85025

== ENCOUNTER → 2017-07-02 | Outpatient (CLI) | payer OTHER ==
[2017-07-02 10:37] LABS: Ionized Calcium 5.3 mg/dL (4.5-5.3)
[2017-07-02 10:47] LABS: C Reactive Protein <5.0 mg/L (<10.0); Creatine Kinase 55 U/L (30-135); Uric Acid 3.8 mg/dL (3.7-7.4)
[2017-07-02 16:19] LABS: Parathyroid Hormone Intact 62.8 pg/mL (14.0-72.0)
[2017-07-02 16:22] LABS: Vitamin D 25 Hydroxy 45.2 ng/mL (30.0-100.0)
[2017-07-02 16:24] LABS: Rheumatoid Factor 5 IU/mL (0-15)
[2017-07-02 18:48] LABS: Hemoglobin A1C 5.7 % (4.0-6.0)
== END | disposition home or self-care (01) ==
LOC: LABWHC1 09:56
PROVIDERS: ATTEND Family Medicine
DX: N95.9 Unspecified menopausal and perimenopausal disorder (principal); M15.9 Polyosteoarthritis, unspecified; E78.5 Hyperlipidemia, unspecified; E55.9 Vitamin D deficiency, unspecified; E11.9 Type 2 diabetes mellitus without complications
CPT/HCPCS: 36415; 82306; 82330; 82550; 82670; 83001; 83036; 83970; 84550; 85652; 86038; 86140; 86431

== ENCOUNTER 2017-07-21 07:43 | Day surgery (SDC) | payer OTHER ==
[2017-07-19 11:26] VITALS: BMI 28.4
[~2017-07-21 07:43] MED LIST changes: +LIDOCAINE 1% 20 ML VIAL (10MG/ML) FOR IV START INTRADERMA PRN
[2017-07-21 08:09] VITALS: TEMP 98.1
[2017-07-21 08:21] LABS: Glucose,Whole Blood 112 mg/dL (75-99)
[2017-07-21] MEDS ORDERED: PROPOFOL 10 MG/ML 20 ML VIAL IV ONE (08:35)
[2017-07-21] MEDS ORDERED: LIDOCAINE 1% INJ 10MG/ML (20 ML MDV) ONE (08:35)
--- NOTE | 2017-07-21 08:35 | P.GSHP ---
History of Present Illness H&P Date: 07/21/17 CHIEF COMPLAINT: Colon screen HISTORY OF PRESENT ILLNESS: The patient is a 52-year-old female who presents for colon screen. Lower endoscopy was offered for further evaluation and management. PAST MEDICAL HISTORY: Please see list. PAST SURGICAL HISTORY: Please see list. MEDICATIONS: Please see list. ALLERGIES: Please see list. SOCIAL HISTORY: No illicit drug use FAMILY HISTORY: No reports of Crohn disease or ulcerative colitis. REVIEW OF ORGAN SYSTEMS: CONSTITUTIONAL: No reports of fevers or chills. PHYSICAL EXAM: VITAL SIGNS: Stable GENERAL: Well-developed pleasant in no acute distress. HEENT: No scleral icterus. Extraocular movements grossly intact. Moist buccal mucosa. NECK: Supple without lymphadenopathy. CHEST: Unlabored respirations. Equal bilateral excursions. CARDIOVASCULAR: Regular rate and rhythm. Distal 2+ pulses. ABDOMEN: Soft, nontender, nondistended. MUSCULOSKELETAL: No clubbing, cyanosis, or edema. ASSESSMENT: 1. Colon screen. PLAN: 1. Recommend proceeding with a lower endoscopy Past Medical History Past Medical History: Cancer, Diabetes Mellitus, GERD/Reflux, Hyperlipidemia, Musculoskeletal Disorder, Osteoarthritis (OA) Additional Past Medical History / Comment(s): BACK PAIN. Skin CA. History of Any Multi-Drug Resistant Organisms: None Reported Past Surgical History: Bariatric Surgery, Breast Surgery, Section, Cholecystectomy, Hernia Repair, Orthopedic Surgery, Uterine Ablation Additional Past Surgical History / Comment(s): RT Knee SCOPE. KAILEY MULT TOES Surgery. Sinus Surgery. Gastric Bypass 2013. Breast biopsy. CERVICAL CONE PROC. PAIN PROC BACK, NECK. , EGD , COLONOSCOPY Past Anesthesia/Blood Transfusion Reactions: Previous Problems w/ Anesthesia, Motion Sickness Additional Past Anesthesia/Blood Transfusion Reaction / Comment(s): Woke up once during anesthesia. Mom has difficulty coming out of anesthesia and low b/p. Smoking Status: Current every day smoker - Past Family History Father History Unknown: Yes Family Medical History: Asthma, Cancer, Congestive Heart Failure (CHF), Diabetes Mellitus, Eye Disorder, Hearing Disorder / Deafness, Hypertension, Seizure Disorder, Skin Disorder, Vascular Disorder Additional Family Medical History / Comment(s): Father also had Leukemia, emphsyma, arthritis, with kidney failure Medications and Allergies Home Medications Medication Instructions Recorded Confirmed Type Aspirin 81 mg PO DAILY 03/29/14 07/21/17 History Ibuprofen [Motrin] 600 mg PO BID PRN 05/02/15 07/21/17 History busPIRone HCl [Buspar] 30 mg PO BID 11/22/15 07/21/17 History Bisacodyl [Dulcolax] 5 mg PO DAILY PRN 12/17/15 07/21/17 History Cholecalciferol [Vitamin D3] 2,000 unit PO DAILY 12/17/15 07/21/17 History hydrOXYzine PAMOATE [Hydroxyzine 25 mg PO BID 12/17/15 07/21/17 History Pamoate] lamoTRIgine [LaMICtal] 200 mg PO DAILY 12/17/15 07/21/17 History Calcium Carbonate [Calcium] 500 mg PO DAILY 05/07/16 07/21/17 History Multivitamins, Thera [Multivitamin] 1 tab PO DAILY 05/07/16 07/21/17 History Loratadine [Claritin] 10 mg PO DAILY 06/19/16 07/21/17 History Omeprazole [PriLOSEC] 10 mg PO DAILY 10/07/16 07/21/17 History Atorvastatin [Lipitor] 10 mg PO DAILY 07/19/17 07/21/17 History Biotin 5 mg PO DAILY 07/19/17 07/21/17 History Citalopram Hydrobromide [CeleXA] 40 mg PO DAILY 07/19/17 07/21/17 History Ferrous Sulfate [Feosol] 325 mg PO DAILY 07/19/17 07/21/17 History metFORMIN HCL [Glucophage] 500 mg PO BID 07/19/17 07/21/17 History Allergies Allergy/AdvReac Type Severity Reaction Status Date / Time grass pollen-perennial rye, Allergy ITCHY,WATERY Verified 07/19/17 11:17 standar EYES AND [grass poll-perennial NOSE rye,std] rivaroxaban [From Xarelto] Allergy NEVER Verified 07/19/17 11:17 WANTS TO HAVE tape Allergy tears Uncoded 07/19/17 11:17 skin,rash, states "paper tape is ok" Surgical - Exam Vital Signs Temp Pulse Resp BP Pulse Ox 98.1 F 69 14 113/74 97 07/21/17 08:08 07/21/17 08:08 07/21/17 08:08 07/21/17 08:08 07/21/17 08:08 Results - Labs Abnormal Lab Results - Last 24 Hours (Table) 07/21/17 Range/Units 08:13 POC Glucose (mg/dL) 112 H (75-99) mg/dL
--- NOTE | 2017-07-21 09:16 | P.PCN ---
Date of Procedure: 07/21/17 Description of Procedure: PREOPERATIVE DIAGNOSIS: Colonoscopy screening. Personal history of colon polyps. POSTOPERATIVE DIAGNOSIS: Colonoscopy screening. Personal history of colon polyps. Multiple tubular adenomas throughout the colon. OPERATION: Colonoscopy to the ileocecal valve and appendiceal orifice. Colonoscopy with multiple snare biopsies. Colonoscopy with multiple cold forceps biopsies. SURGEON: Agatha Jaeger MD. ANESTHESIA: MAC. INDICATIONS: The patient is a 52-year-old female who presents for colonoscopy screening. Her last colonoscopy was within the last 5 years. Benefits and risks were described and informed consent was obtained. DESCRIPTION OF PROCEDURE: The patient had undergone Gatorade, MiraLAX and Dulcolax prep. She had been brought into the operating room and laid in the left lateral decubitus position. After adequate intravenous sedation, the rectum was examined with 2% lidocaine jelly. No external hemorrhoids were encountered. The rectal tone was within normal limits. No lesions were palpated in the rectal vault. An Olympus colonoscope was advanced until the ileocecal valve and appendiceal orifice were clearly viewed. The prep was fair with visualization of the mucosal folds. Abdominal wall pressure was used to advance the scope. The scope was removed with visualization of each mucosal fold. No scattered diverticulosis was encountered. Multiple colonic polyps were found and cold forcep biopsy or snare polypectomy. No evidence of focal colitis was found. Retroflexion of the scope demonstrated no grade 1 internal hemorrhoids with active bleeding or inflammation. The colon was desufflated. The patient had tolerated the procedure well. Withdrawal time was over 6 minutes. FINDINGS: No internal hemorrhoids No external hemorrhoids No arteriovenous malformations. No diverticulosis. Removal of 4 polyps: - Snare polypectomy 10 cm from the anal verge, 6 mm tubulovillous adenoma polyp along the rectum. - Cold forceps biopsy at 20 cm from the anal verge, 4 mm polyp, at the sigmoid colon - Cold forceps biopsy at 60 cm from the anal verge, 4 mm polyp, at the distal transverse colon - Cold forceps biopsy at the ascending colon, 5 mm polyp. No focal colitis. RECOMMENDATIONS: Given severity of tubular adenomas, recommend repeat colonoscopy 2 year, 2019. Plan - Discharge Summary New Discharge Prescriptions: No Action Aspirin 81 mg PO DAILY Ibuprofen [Motrin] 600 mg PO BID PRN PRN Reason: Pain busPIRone HCl [Buspar] 30 mg PO BID hydrOXYzine PAMOATE [Hydroxyzine Pamoate] 25 mg PO BID Cholecalciferol [Vitamin D3] 2,000 unit PO DAILY Bisacodyl [Dulcolax] 5 mg PO DAILY PRN PRN Reason: Constipation lamoTRIgine [LaMICtal] 200 mg PO DAILY Multivitamins, Thera [Multivitamin] 1 tab PO DAILY Calcium Carbonate [Calcium] 500 mg PO DAILY Loratadine [Claritin] 10 mg PO DAILY Omeprazole [PriLOSEC] 10 mg PO DAILY metFORMIN HCL [Glucophage] 500 mg PO BID Ferrous Sulfate [Feosol] 325 mg PO DAILY Atorvastatin [Lipitor] 10 mg PO DAILY Citalopram Hydrobromide [CeleXA] 40 mg PO DAILY Biotin 5 mg PO DAILY Discharge Medication List Aspirin 81 mg PO DAILY 03/29/14 [History] Ibuprofen [Motrin] 600 mg PO BID PRN 05/02/15 [History] busPIRone HCl [Buspar] 30 mg PO BID 11/22/15 [History] Bisacodyl [Dulcolax] 5 mg PO DAILY PRN 12/17/15 [History] Cholecalciferol [Vitamin D3] 2,000 unit PO DAILY 12/17/15 [History] hydrOXYzine PAMOATE [Hydroxyzine Pamoate] 25 mg PO BID 12/17/15 [History] lamoTRIgine [LaMICtal] 200 mg PO DAILY 12/17/15 [History] Calcium Carbonate [Calcium] 500 mg PO DAILY 05/07/16 [History] Multivitamins, Thera [Multivitamin] 1 tab PO DAILY 05/07/16 [History] Loratadine [Claritin] 10 mg PO DAILY 06/19/16 [History] Omeprazole [PriLOSEC] 10 mg PO DAILY 10/07/16 [History] Atorvastatin [Lipitor] 10 mg PO DAILY 07/19/17 [History] Biotin 5 mg PO DAILY 07/19/17 [History] Citalopram Hydrobromide [CeleXA] 40 mg PO DAILY 07/19/17 [History] Ferrous Sulfate [Feosol] 325 mg PO DAILY 07/19/17 [History] metFORMIN HCL [Glucophage] 500 mg PO BID 07/19/17 [History]
[2017-07-21 09:40] VITALS: BP 121/81; PULSE 70; RESP 18
== END 2017-07-21 09:58 | disposition home or self-care (01) ==
LOC: ORWHC2ENDO 07:43
PROVIDERS: ATTEND Surgery Plastic and Reconstructive Surgery
DX: Z12.11 Encounter for screening for malignant neoplasm of colon (principal); D12.9 Benign neoplasm of anus and anal canal; K63.5 Polyp of colon; Z86.010 Personal history of colon polyps; K21.9 Gastro-esophageal reflux disease without esophagitis; E78.5 Hyperlipidemia, unspecified; E11.9 Type 2 diabetes mellitus without complications; F17.200 Nicotine dependence, unspecified, uncomplicated; Z79.84 Long term (current) use of oral hypoglycemic drugs; M19.90 Unspecified osteoarthritis, unspecified site; Z85.828 Personal history of other malignant neoplasm of skin; Z98.84 Bariatric surgery status; Z79.82 Long term (current) use of aspirin; Z79.899 Other long term (current) drug therapy; Z88.8 Allergy status to other drugs, medicaments and biological substances; Z91.018 Allergy to other foods; Z91.09 Other allergy status, other than to drugs and biological substances
CPT/HCPCS: 81025; 88305; 45380; 45385; J2001; J2704

== ENCOUNTER → 2017-11-17 | Outpatient (CLI) | payer MEDICARE, OTHER ==
[2017-11-17 10:31] LABS: Basophils # (A) 0.1 k/uL (0-0.2); Basophils % (A) 1 %; Eosinophils # (A) 0.4 k/uL (0-0.7); Eosinophils % (A) 5 %; HCT 42.8 % (34.0-46.0); HGB 13.3 gm/dL (11.4-16.0); Lymphocytes % (A) 23 %; MCH 26.9 pg (25.0-35.0); MCHC 31.1 g/dL (31.0-37.0); MCV 86.5 fL (80.0-100.0); Mean Platelet Volume 7.6; Monocytes # (A) 0.4 k/uL (0-1.0); Monocytes % (A) 5 %; Neutrophils % (A) 67 %; Platelet Count 369 k/uL (150-450); RBC 4.95 m/uL (3.80-5.40); RDW 13.5 % (11.5-15.5); WBC 9.1 k/uL (3.8-10.6)
[2017-11-17 10:34] LABS: Appearance,Urine Clear (Clear); Bacteria,Urine Rare /hpf; Bilirubin,Urine Negative (Negative); Blood,Urine Negative (Negative); Color,Urine Yellow; Glucose,Urine (UA) Negative (Negative); Ketones,Urine Negative (Negative); Leukocyte Esterase,Urine Trace (Negative); Mucus,Urine Many /hpf; Nitrite,Urine Negative (Negative); PH, Urine 5.5 (5.0-8.0); Protein,Urine Trace (Negative); RBC,Urine <1 /hpf (0-5); Specific Gravity,Urine 1.019 (1.001-1.035); Squamous Epithelial Cell,Urine 3 /hpf (0-4)
[2017-11-17 10:55] LABS: ALT 25 U/L (9-52); Blood Urea Nitrogen 13 mg/dL (7-17); Cholesterol 150 mg/dL (<200); HDL Cholesterol 65 mg/dL (40-60); LDL Cholesterol,Calculated 68 mg/dL (0-99); Triglycerides 87 mg/dL (<150)
[2017-11-17 11:09] LABS: T4, Free (Free Thyroxine) 0.91 ng/dL (0.78-2.19)
[2017-11-17 18:15] LABS: Hemoglobin A1C 6.1 % (4.0-6.0)
== END | disposition home or self-care (01) ==
LOC: LABWHC1 10:06
PROVIDERS: ATTEND Psychiatry & Neurology Psychiatry
DX: E11.9 Type 2 diabetes mellitus without complications (principal); E78.5 Hyperlipidemia, unspecified; R00.2 Palpitations; R35.0 Frequency of micturition
CPT/HCPCS: 36415; 80061; 81001; 82565; 83036; 84439; 84443; 84460; 84520; 85025

== ENCOUNTER → 2017-11-25 | Outpatient (CLI) | payer MEDICARE, OTHER ==
--- NOTE | 2017-11-25 14:44 | US ---
EXAMINATION TYPE: US carotid duplex BILAT DATE OF EXAM: 11/25/2017 COMPARISON: NONE CLINICAL HISTORY: R00.2 Palpitations. Dizziness, palpitations, anxiety EXAM MEASUREMENTS: RIGHT: Peak Systolic Velocity (PSV) cm/sec ----- Right CCA: 70.3 ----- Right ICA: 102.1 ----- Right ECA: 113.8 ICA/CCA ratio: 1.5 RIGHT: End Diastole cm/sec ----- Right CCA: 27.3 ----- Right ICA: 47.8 ----- Right ECA: 21.9 LEFT: Peak Systolic Velocity (PSV) cm/sec ----- Left CCA: 76.2 ----- Left ICA: 108.6 ----- Left ECA: 115.1 ICA/CCA ratio: 1.4 LEFT: End Diastole cm/sec ----- Left CCA: 28.3 ----- Left ICA: 54.2 ----- Left ECA: 18.0 VERTEBRALS (direction of flow): Right Vertebral: Antegrade Left Vertebral: Antegrade Rhythm: Normal Mild plaque bilateral bifurcations. No evidence of increased velocities. No evidence of significant s tenosis IMPRESSION: 1. Atheromatous plaquing without significant flow-limiting stenosis Criteria for Assigning % of Stenosis / Diameter reduction (Estimation based on the indirect measurements of the internal carotid artery velocities (ICA PSV). 1. Normal (no stenosis)=ICA PSV < 125 cm/s: ratio < 2.0: ICA EDV<40 cm/s. 2. Less than 50% stenosis=ICA PSV < 125 cm/s: ratio < 2.0: ICA EDV<40 cm/s. 3. 50 to 69% stenosis=ICA PSV of 125 to 230 cm/s: ration 2.0 ? 4.0: ICA EDV 40-100 cm/s. 4. Greater than 70% stenosis to near occlusion= ICA PSV > 230 cm/s: ratio > 4.0: ICA EDV > 100 cm/s. 5. Near occlusion= ICA PSV velocities may be low or undetectable: variable ratio and ICA EDV. 6. Total occlusion=unable to detect flow.
--- NOTE | 2017-12-24 20:32 | HM ---
HOLTER MONITOR REPORT Patient was monitored between November 25 and December 20, 2017. The strip available revealed sinus mechanism with episode of sinus tachycardia and single PVCs. There was no evidence of significant tachycardia or pauses. TAMRA / ARTN: [id number] /
== END | disposition home or self-care (01) ==
LOC: RADUSWWP 11:51
PROVIDERS: ATTEND Family Medicine
DX: I65.23 Occlusion and stenosis of bilateral carotid arteries (principal); I49.3 Ventricular premature depolarization; R00.0 Tachycardia, unspecified
CPT/HCPCS: 93270; 93271; 93880

== ENCOUNTER → 2017-12-07 | Outpatient (CLI) | payer OTHER ==
--- NOTE | 2017-12-07 16:13 | PN ---
PROGRESS NOTE This is a pleasant 52-year-old female patient with history of chronic insomnia. I have seen this patient in consultation on 08/11/2016. The patient diagnosed having chronic insomnia. She had ulcerations with chronic benzodiazepine dependence from which she recovered and she was taken off benzodiazepines. She did complain of insomnia which was thought to be comorbid insomnia related to her chronic anxiety/depression/bipolar disorder. She is under the care of Dr. Merino regarding her psychiatric problems. During last evaluation I asked the patient to go on a trial of Ambien. She discussed this with the psychiatrist and it was thought that this was not a good option for her and she is not going to treatment. Over the past 1 year the patient continued to have significant insomnia where the patient is unable to sleep more than 3-4 hours per night. She has had difficulty with sleep initiation and maintenance. She has tried conservative measures and relaxation techniques and all of these measures have failed. Adjustments on her psychiatric medications have been done and she was taken off the BuSpar and currently she is off the Cymbalta. Another antidepressant was added, the exact medications not known to me at this point in time. She is also on Lamictal for now. No benzodiazepines are being utilized in her condition. Her sleep hygiene measures are in general good. She does not drink caffeinated beverages late at night time. No substance abuse. No alcoholism. No head trauma. No nocturnal headaches. No nocturnal heartburn. No nocturnal chest pain or shortness of breath. No chronic pain. Weight has been stable. She has no evidence of sleep apnea based on an earlier sleep study. Her weight has been stable at 185 pounds. She is requesting to go on a trial of Ambien. I think that is overall reasonable especially with her chronic and ongoing issues with insomnia. PHYSICAL EXAMINATION: BP is 165/68, pulse 78, respirations 16, temperature 98.3, saturation 97% on room air. Weight is 185, height 5 feet 7 inches. GENERAL APPEARANCE: Calm, comfortable. Head is atraumatic, normocephalic. NECK: Supple. No JVD. No goiter or neck masses. LUNGS: Clear to auscultation. HEART: Sounds are regular. Normal S1, S2. No S3. No murmurs. ABDOMEN: Soft, nontender. No organomegaly. EXTREMITIES: No edema. No cyanosis or clubbing. IMPRESSION: 1. Chronic insomnia. 2. Chronic anxiety disorder. 3. Bipolar disorder. 4. Depression. 5. History of benzodiazepine dependence. 6. Chronic fatigue and sleepiness. PLAN: I think it is reasonable to consider is Ambien knowing all other measures have been exhausted in treatment of her insomnia. I gave her a prescription for Ambien 10 mg to be used before bedtime and I gave her a total of 20 tablets. During this time, the patient will implement good sleep hygiene measures. She will go to bed at fixed time and wake times and maintain a sleep diary. She will contact us back on her clinical response accordingly. We will continue to follow. MMODL / IJN: [id number] /
== END ==
LOC: SLEEP 09:53
PROVIDERS: ATTEND Internal Medicine Critical Care Medicine
DX: F51.04 Psychophysiologic insomnia (principal); F41.9 Anxiety disorder, unspecified; F32.9 Major depressive disorder, single episode, unspecified; F13.20 Sedative, hypnotic or anxiolytic dependence, uncomplicated

== ENCOUNTER → 2017-12-08 | Outpatient (CLI) | payer OTHER ==
[2017-12-08 18:18] LABS: T4, Free (Free Thyroxine) 0.78 ng/dL (0.78-2.19)
== END | disposition home or self-care (01) ==
LOC: LABWHC1 17:18
PROVIDERS: ATTEND Internal Medicine Interventional Cardiology
DX: E05.90 Thyrotoxicosis, unspecified without thyrotoxic crisis or storm (principal); R00.2 Palpitations
CPT/HCPCS: 36415; 84439; 84443

== ENCOUNTER → 2017-12-08 | Outpatient (CLI) | payer OTHER ==
--- NOTE | 2017-12-08 20:18 | XR ---
EXAMINATION TYPE: XR chest 2V DATE OF EXAM: 12/08/2017 COMPARISON: 12/17/2015 HISTORY: Chronic cough TECHNIQUE: Frontal and lateral views of the chest are obtained. FINDINGS: Heart and mediastinum are normal. Lungs are clear of consolidation. Bony thorax is intact. There is no sign of pleural effusion. IMPRESSION: No active cardiopulmonary disease. No change.
== END | disposition home or self-care (01) ==
LOC: RADXRMAIN 17:35
PROVIDERS: ATTEND Family Medicine
DX: J44.9 Chronic obstructive pulmonary disease, unspecified (principal)
CPT/HCPCS: 71046

== ENCOUNTER → 2018-02-15 | Outpatient (CLI) | payer MEDICARE, OTHER ==
[2018-02-15 10:51] LABS: HGB 14.2 gm/dL (11.4-16.0); MCH 29.1 pg (25.0-35.0); MCHC 33.7 g/dL (31.0-37.0); MCV 86.3 fL (80.0-100.0); Mean Platelet Volume 7.3; Platelet Count 366 k/uL (150-450); RBC 4.86 m/uL (3.80-5.40); RDW 13.7 % (11.5-15.5); WBC 7.4 k/uL (3.8-10.6)
[2018-02-15 16:58] LABS: Anion Gap 7.5 mmol/L (4.00-12.00); Calcium 9.9 mg/dL (8.7-10.3); Carbon Dioxide 25.5 mmol/L (21.6-31.8); Potassium 4.3 mmol/L (3.5-5.5)
[2018-02-15 19:44] LABS: Hemoglobin A1C 5.9 % (4.0-6.0)
== END | disposition home or self-care (01) ==
LOC: LABWHC1 10:13
PROVIDERS: ATTEND Family Medicine
DX: E11.9 Type 2 diabetes mellitus without complications (principal); E78.00 Pure hypercholesterolemia, unspecified
CPT/HCPCS: 36415; 80048; 83036; 84450; 84460; 85027

== ENCOUNTER 2018-04-27 23:15 | Emergency (ER) | payer MEDICARE, OTHER ==
[2018-04-27] MEDS ORDERED: DIAZEPAM 5 MG/ML 2 ML INJ IVP STA (23:47)
--- NOTE | 2018-04-27 23:50 | ED ---
General Adult HPI - General Source: patient Mode of arrival: ambulatory Limitations: no limitations <Anabella Gomez - Last Filed: 04/28/18 03:49> <Mariposa Lockwood - Last Filed: 04/28/18 04:11> - General Chief complaint: Neck Pain/Injury Stated complaint: Neck pain Time Seen by Provider: 04/27/18 23:20 - History of Present Illness Initial comments: 33-year-old female past medical history of type 2 diabetes non-insulin- dependent and hyperlipidemia presents today for chief complaint of left-sided neck pain and headache. Patient states the day before yesterday she was seen at a chiropractor for having neck stiffness and difficulty turning her neck. She states she had pain on left side, that increases with any movement. She states that he did attempt a cracked a however did not have success due to limitation in range of motion. Patient states that since she has had left- sided neck pain and headache. She states that she feels better if she applies pressure to the left lower aspect of her skull. She states that any movement increases the pain, she states that when she swallows there is pain in the back of her head, she states this is not sore throat like. She states it is a deeper pain. Patient denies any trauma to the head or neck, recent MVA, recent falls, nausea, vomiting, difficulty swallowing, speech changes, ataxia, muscle weakness, numbness, tingling, paresthesias, facial asymmetry, diplopia, visual loss or visual changes. Pt denies any strenous activity/yard work or shoveling. pt cannot recall the exact time of onset of the pain. Pt states it has been gradually getting worse over the course of the past two days and presents for evaluation. Upon arrival pt appears well, nontoxic but uncomfortable. Holding the left side of her neck. (Anabella Gomez) - Related Data Home Medications Medication Instructions Recorded Confirmed Aspirin 81 mg PO DAILY 03/29/14 04/27/18 Bisacodyl [Dulcolax] 5 mg PO DAILY PRN 12/17/15 04/27/18 Cholecalciferol [Vitamin D3] 2,000 unit PO DAILY 12/17/15 04/27/18 hydrOXYzine PAMOATE [Hydroxyzine 25 mg PO BID 12/17/15 04/27/18 Pamoate] lamoTRIgine [LaMICtal] 200 mg PO DAILY 12/17/15 04/27/18 Calcium Carbonate [Calcium] 500 mg PO DAILY 05/07/16 04/27/18 Multivitamins, Thera [Multivitamin] 1 tab PO DAILY 05/07/16 04/27/18 Atorvastatin [Lipitor] 10 mg PO DAILY 07/19/17 04/27/18 Biotin 5 mg PO DAILY 07/19/17 04/27/18 Citalopram Hydrobromide [CeleXA] 40 mg PO DAILY 07/19/17 04/27/18 Ferrous Sulfate [Feosol] 325 mg PO DAILY 07/19/17 04/27/18 metFORMIN HCL [Glucophage] 500 mg PO BID 07/19/17 04/27/18 Docusate [Colace] 100 mg PO DAILY 04/27/18 04/27/18 Tylenol Muscle And Pain (Unkno 2 tab PO Q8HR PRN 04/27/18 04/27/18 Previous Rx's Medication Instructions Recorded Cyclobenzaprine [Flexeril] 10 mg PO HS 7 Days #7 tab 04/28/18 Allergies Allergy/AdvReac Type Severity Reaction Status Date / Time grass pollen-perennial rye, Allergy ITCHY,WATERY Verified 04/27/18 23:33 standar EYES AND [grass poll-perennial NOSE rye,std] rivaroxaban [From Xarelto] Allergy NEVER Verified 04/27/18 23:33 WANTS TO HAVE tape Allergy tears Uncoded 04/27/18 23:24 skin,rash, states "paper tape is ok" Review of Systems ROS Other: All systems not noted in ROS Statement are negative. <Anabella Gomez L - Last Filed: 04/28/18 03:49> ROS Other: All systems not noted in ROS Statement are negative. <Mariposa Lockwood P - Last Filed: 04/28/18 04:11> ROS Statement: Those systems with pertinent positive or pertinent negative responses have been documented in the HPI. Past Medical History Past Medical History: Cancer, Diabetes Mellitus, GERD/Reflux, Hearing Disorder / Deafness, Musculoskeletal Disorder, Osteoarthritis (OA) Additional Past Medical History / Comment(s): PAST HX OF DM PRIOR TO WGT LOSS, NOW POSS HYPOGYLCEMIA. BACK PAIN. Skin CA. GETS NAUSEA WHEN EATING OFTEN, ALOT OF HEARTBURN. History of Any Multi-Drug Resistant Organisms: None Reported Past Surgical History: Bariatric Surgery, Breast Surgery, Section, Cholecystectomy, Hernia Repair, Orthopedic Surgery, Uterine Ablation Additional Past Surgical History / Comment(s): RT Knee SCOPE. KAILEY MULT TOES Surgery. Sinus Surgery. Gastric Bypass 2013. Breast biopsy. CERVICAL CONE PROC. PAIN PROC BACK, NECK. Past Anesthesia/Blood Transfusion Reactions: Previous Problems w/ Anesthesia, Motion Sickness Additional Past Anesthesia/Blood Transfusion Reaction / Comment(s): Woke up once during anesthesia. Mom has difficulty coming out of anesthesia and low b/p. Past Psychological History: Anxiety, Depression, Panic Disorder Smoking Status: Current every day smoker Past Alcohol Use History: Occasional Past Drug Use History: None Reported - Past Family History Father History Unknown: Yes Family Medical History: Asthma, Cancer, Congestive Heart Failure (CHF), Diabetes Mellitus, Eye Disorder, Hearing Disorder / Deafness, Hypertension, Seizure Disorder, Skin Disorder, Vascular Disorder Additional Family Medical History / Comment(s): Father also had Leukemia, emphsyma, arthritis, with kidney failure <Anabella Gomez L - Last Filed: 04/28/18 03:49> General Exam Limitations: no limitations <JasonAnabella L - Last Filed: 04/28/18 03:49> <Mariposa Lockwood P - Last Filed: 04/28/18 04:11> - General Exam Comments Initial Comments: General: The patient is awake and alert, in no distress, and does not appear acutely ill. Eye: +3 mm pupils are equal, round and reactive to light, extra-ocular movements are intact. No nystagmus. There is normal conjunctiva bilaterally. No signs of icterus. Ears, nose, mouth and throat: There are moist mucous membranes and no oral lesions. Neck: The neck is supple, there is no tenderness or JVD. Palpable muscle tension of the left side of the neck. Cardiovascular: There is a regular rate and rhythm. No murmur, rub or gallop is appreciated. Respiratory: Lungs are clear to auscultation, respirations are non-labored, breath sounds are equal. No wheezes, stridor, rales, or rhonchi. Gastrointestinal: Soft, non-distended, non-tender abdomen without masses or organomegaly noted. There is no rebound or guarding present. No CVA tenderness. Bowel sounds are unremarkable. Musculoskeletal: Normal ROM, no tenderness. Strength 5/5. Sensation intact. Pulses equal bilaterally 2+. Neurological: A&O x 3. CN II-XII intact, There are no obvious motor or sensory deficits. Coordination appears grossly intact. Speech is normal. Skin: Skin is warm and dry and no rashes or lesions are noted. Psychiatric: Cooperative, appropriate mood & affect, normal judgment. (Anabella Gomez) Course <Anabella Gomez - Last Filed: 04/28/18 03:49> <Mariposa Lockwood - Last Filed: 04/28/18 04:11> Vital Signs 04/27/18 04/28/18 04/28/18 23:21 01:41 02:45 Temperature 98.8 F Pulse Rate 79 90 88 Respiratory 18 18 16 Rate Blood Pressure 129/84 151/80 131/86 O2 Sat by Pulse 99 96 98 Oximetry 04/28/18 03:59 Temperature 98.9 F Pulse Rate Respiratory Rate Blood Pressure O2 Sat by Pulse Oximetry - Reevaluation(s) Reevaluation #1: Shortly after the administration of morphine patient stated she felt anxious and had chest pain. EKG was obtained revealing normal sinus rhythm no findings concerning for acute coronary syndrome. Pt states that she often gets panic attacks, stating it felt similar. 04/28/18 (Anabella Gomez) Reevaluation #2: Pt requesting discharge, refused XR or further sauer of isolated CP after morphine , stating she knows it was her anxiety and would like to go home. 04/28/18 03:32 (Anabella Gomez) EKG Findings - EKG Comments: EKG Findings:: A 12-lead EKG was performed and shows the following: Rate is 85bpm, and rhythm is normal sinus. There are normal QRS complexes and normal R- wave progression. ST segments have no elevation or depression, and GA segments appear normal. <Anabella Gomez - Last Filed: 04/28/18 03:49> Medical Decision Making - Lab Data Result diagrams: 04/28/18 00:18 04/28/18 00:18 <Anabella Gomez - Last Filed: 04/28/18 03:49> - Lab Data Result diagrams: 04/28/18 00:18 04/28/18 00:18 <Mariposa Lockwood - Last Filed: 04/28/18 04:11> - Medical Decision Making 53 yo female presenting for cc of neck pain. Pt had recent chiropractic appointment concerning for possible vascular injury causing pain. No focal deficits on exam. CT wo contrast and CTA (-) for acute process. Soft tissues appeared normal. PE reveled pain with movement and neck tension. At this time I do feel pt most likely has a musculoskeletal source of left-sided neck pain. Pt did experience CP after morphine she stated it was due to anxiety feeling, states it went away and she would not like further work-up for it. She refused CXR stating she knows it was her anxiety. Pt will be discharge with flexeril and instruction sheets [id number] NSAIDs. Patient is to follow-up with primary care provider in the next 2-3 days. She is agreeable plan discharge, denies questions at this time. Return parameters were discussed with patient at length, pt verbalized understanding. I did discuss and consult my attending provider throughout patient course, Dr. Lockwood. Pt discharged in stable condition,appearing well. Pt stated she had improvement of symptoms. (Anabella Gomez) I was available for consultation in the emergency department. The history and physical exam were done by the midlevel provider. I was consulted for this patient's care. I reviewed the case with the midlevel provider and based on their presentation of the patient, I agree with the assessment, medical decision making and plan of care as documented. (Mariposa Lockwood) - Lab Data Lab Results 04/28/18 04/28/18 04/28/18 Range/Units 00:18 00:18 03:03 WBC 14.6 H (3.8-10.6) k/uL RBC 4.94 (3.80-5.40) m/uL Hgb 13.5 (11.4-16.0) gm/dL Hct 42.0 (34.0-46.0) % MCV 85.1 (80.0-100.0) fL MCH 27.3 (25.0-35.0) pg MCHC 32.0 (31.0-37.0) g/dL RDW 13.7 (11.5-15.5) % Plt Count 374 (150-450) k/uL Neutrophils % 62 % Lymphocytes % 25 % Monocytes % 6 % Eosinophils % 5 % Basophils % 1 % Neutrophils # 9.0 H (1.3-7.7) k/uL Lymphocytes # 3.6 (1.0-4.8) k/uL Monocytes # 0.9 (0-1.0) k/uL Eosinophils # 0.7 (0-0.7) k/uL Basophils # 0.1 (0-0.2) k/uL Sodium 141 (137-145) mmol/L Potassium 4.5 (3.5-5.1) mmol/L Chloride 106 (98-107) mmol/L Carbon Dioxide 26 (22-30) mmol/L Anion Gap 9 mmol/L BUN 17 (7-17) mg/dL Creatinine 0.70 (0.52-1.04) mg/dL Est GFR (CKD-EPI)AfAm >90 (>60 ml/min/1.73 sqM) Est GFR (CKD-EPI)NonAf >90 (>60 ml/min/1.73 sqM) Glucose 92 (74-99) mg/dL Calcium 10.1 (8.4-10.2) mg/dL Total Bilirubin 0.4 (0.2-1.3) mg/dL AST 34 (14-36) U/L ALT 37 (9-52) U/L Alkaline Phosphatase 99 (38-126) U/L Total Creatine Kinase 53 (30-135) U/L Total Protein 7.4 (6.3-8.2) g/dL Albumin 4.6 (3.5-5.0) g/dL Disposition Is patient prescribed a controlled substance at d/c from ED?: No <Anabella Gomez L - Last Filed: 04/28/18 03:49> <Mariposa Lockwood P - Last Filed: 04/28/18 04:11> Clinical Impression: Muscle spasms of neck, Headache Disposition: HOME SELF-CARE Condition: Good Instructions (If sedation given, give patient instructions): Musculoskeletal Pain (ED) Additional Instructions: Please use medication as discussed. Please follow-up with family doctor in the next 2 days. Please return to emergency room if the symptoms increase or worsen or for any other concerns. Prescriptions: Cyclobenzaprine [Flexeril] 10 mg PO HS 7 Days #7 tab Referrals: Adolph Rincon DO [Primary Care Provider] - 1-2 days
[2018-04-28 00:41] LABS: Basophils # (A) 0.1 k/uL (0-0.2); Basophils % (A) 1 %; Eosinophils # (A) 0.7 k/uL (0-0.7); Eosinophils % (A) 5 %; HGB 13.5 gm/dL (11.4-16.0); Lymphocytes # (A) 3.6 k/uL (1.0-4.8); Lymphocytes % (A) 25 %; MCH 27.3 pg (25.0-35.0); MCV 85.1 fL (80.0-100.0); Mean Platelet Volume 7.4; Monocytes # (A) 0.9 k/uL (0-1.0); Monocytes % (A) 6 %; Neutrophils % (A) 62 %; Platelet Count 374 k/uL (150-450); RBC 4.94 m/uL (3.80-5.40); RDW 13.7 % (11.5-15.5); WBC 14.6 k/uL (3.8-10.6)
[2018-04-28 00:49] LABS: ALT 37 U/L (9-52); AST 34 U/L (14-36); Albumin 4.6 g/dL (3.5-5.0); Alkaline Phosphatase 99 U/L (38-126); Anion Gap 9 mmol/L; Blood Urea Nitrogen 17 mg/dL (7-17); Calcium 10.1 mg/dL (8.4-10.2); Carbon Dioxide 26 mmol/L (22-30); Chloride 106 mmol/L (98-107); Glucose 92 mg/dL (74-99); Potassium 4.5 mmol/L (3.5-5.1); Sodium 141 mmol/L (137-145); Total Bilirubin 0.4 mg/dL (0.2-1.3); Total Protein 7.4 g/dL (6.3-8.2)
[2018-04-28] MEDS ORDERED: MORPHINE SULFATE 2 MG/ML SYRINGE IVP STA (01:22)
[2018-04-28] MEDS ORDERED: ASPIRIN 81 MG PO STA (02:04)
[2018-04-28] MEDS ORDERED: NITROGLYCERIN SL TABS 0.4 MG TAB SUBLINGUAL STA (02:04)
--- NOTE | 2018-04-28 02:28 | CT ---
INDICATION: Pain TECHNIQUE: CT acquisition is performed through the brain. Sagittal and coronal reformatted images are provided. No intravenous contrast is administered. DOSE INFORMATION: CTDIvol 45.2 mGy; DLP 1035 mGy-cm. This CT exam was performed using one or more of the following dose reduction techniques: automated exposure control, adjustment of the mA and/or kV according to patient size, and/or use of iterative reconstruction technique. COMPARISON: MRI brain 01/07/16. FINDINGS: There is no evidence of acute intracranial hemorrhage or abnormal extra- axial fluid collection. There is no mass effect or midline shift. Sulci, ventricles, and basal cisterns are normal in size and configuration. The beverly-white matter differentiation is preserved. The visualized paranasal sinuses and mastoid air cells are clear. The calvarium is intact. IMPRESSION: 1. No CT evidence of acute intracranial process. INDICATION: Pain TECHNIQUE: CT acquisition is performed through the cervical spine. Sagittal and coronal reformatted images are provided. No intravenous contrast is administered. DOSE INFORMATION: CTDIvol 9.6 mGy; DLP 257.8 mGy-cm. This CT exam was performed using one or more of the following dose reduction techniques: automated exposure control, adjustment of the mA and/or kV according to patient size, and/or use of iterative reconstruction technique. COMPARISON: None. FINDINGS: There is straightening of the cervical spine. Craniocervical and atlantoaxial relationships are maintained. Vertebral body height and alignment are preserved. There is no evidence of acute fracture or subluxation. There are degenerative changes at the anterior C1-C2 articulation. There is mild degenerative disc disease at C5-C6 and C6-C7, associated with mild left greater than right foraminal narrowing at these levels. There is no prevertebral soft tissue swelling. Lung apices are clear. IMPRESSION: 1. No CT evidence of acute osseous abnormality.
--- NOTE | 2018-04-28 02:28 | CT ---
INDICATION: Pain TECHNIQUE: CT acquisition is performed through the head and neck per institutional CT angiogram protocol following the administration of 65 mL Isovue-370 IV contrast. Sagittal and coronal reformatted images and MIP images with 3-D rotational reconstructions are provided. DOSE INFORMATION: CTDIvol 70.70 mGy; DLP 1210.22 mGy-cm. This CT exam was performed using one or more of the following dose reduction techniques: automated exposure control, adjustment of the mA and/or kV according to patient size, and/or use of iterative reconstruction technique. COMPARISON: MRI brain 01/07/16. FINDINGS: CTA HEAD: The bilateral intracranial internal carotid arteries and bilateral M1 and A1 segments are patent and normal in caliber. Distal MCA and CHUNG branches appear patent. The anterior communicating artery is visualized. The right posterior connecting arteries visualized. The left posterior communicating artery is not well seen. The bilateral intracranial vertebral arteries, basilar artery, and bilateral P1 segments are patent and normal in caliber. There is no evidence of central large vessel occlusion, aneurysm, or vascular malformation. CTA NECK: There is conventional aortic arch branch anatomy with widely patent origins of the great vessels. The bilateral common carotid arteries are patent and normal in caliber. The bilateral internal carotid arteries are patent and normal in caliber. The bilateral vertebral arteries are patent and normal in caliber. The lung apices are clear. Soft tissues of the neck are unremarkable. CAROTID STENOSIS REFERENCE USING NASCET CRITERIA: % ICA stenosis = (1 - narrowest ICA diameter/diameter of distal cervical ICA) x 100. Mild - <50% stenosis. Moderate - 50-69% stenosis. Severe - 70-94% stenosis. Near occlusion - 95-99% stenosis. Occluded - 100% stenosis. IMPRESSION: 1. Normal CTA of the head and neck.
[2018-04-28] MEDS ORDERED: CYCLOBENZAPRINE 10MG STARTER 3 TAB BTL PO STA (03:17)
[2018-04-28] MEDS ORDERED: KETOROLAC 30 MG/ML 1 ML VIAL IVP STA (03:17)
[2018-04-28 03:19] VITALS: BP 131/86; PULSE 88; RESP 16
[2018-04-28 04:03] VITALS: TEMP 98.9
[2018-04-28 04:07] LABS: Creatine Kinase 53 U/L (30-135)
[2018-04-28 04:19] LABS: Creatine Kinase MB 1.3 ng/mL (0.0-2.4); Troponin I <0.012 ng/mL (0.000-0.034)
== END 2018-04-28 03:59 | disposition home or self-care (01) ==
LOC: EC 23:15
DX: M62.838 Other muscle spasm (principal); R51 Headache; E11.9 Type 2 diabetes mellitus without complications; K21.9 Gastro-esophageal reflux disease without esophagitis; M19.90 Unspecified osteoarthritis, unspecified site; H91.90 Unspecified hearing loss, unspecified ear; E78.5 Hyperlipidemia, unspecified; F32.9 Major depressive disorder, single episode, unspecified; F41.0 Panic disorder [episodic paroxysmal anxiety]; F17.200 Nicotine dependence, unspecified, uncomplicated; Z53.29 Procedure and treatment not carried out because of patient's decision for other reasons; Z85.828 Personal history of other malignant neoplasm of skin; Z79.82 Long term (current) use of aspirin; Z79.84 Long term (current) use of oral hypoglycemic drugs; Z79.899 Other long term (current) drug therapy; Z88.8 Allergy status to other drugs, medicaments and biological substances; Z91.09 Other allergy status, other than to drugs and biological substances; Z91.048 Other nonmedicinal substance allergy status; Z53.8 Procedure and treatment not carried out for other reasons
CPT/HCPCS: 99284 ×2; 96374 ×2; 96375 ×2; 36415; 93005; 80053; 82550; 82553; 84484; 85025; 72125; 70496; 70450; 70498; J3360; J2270; Q9967

== ENCOUNTER → 2018-05-19 | Outpatient (CLI) | payer MEDICARE, OTHER ==
[2018-05-19 10:15] LABS: Basophils # (A) 0.1 k/uL (0-0.2); Basophils % (A) 1 %; Eosinophils # (A) 0.6 k/uL (0-0.7); Eosinophils % (A) 6 %; HCT 41.7 % (34.0-46.0); HGB 14.1 gm/dL (11.4-16.0); Lymphocytes # (A) 2.4 k/uL (1.0-4.8); Lymphocytes % (A) 26 %; MCH 28.8 pg (25.0-35.0); MCHC 33.7 g/dL (31.0-37.0); MCV 85.4 fL (80.0-100.0); Mean Platelet Volume 7.2; Monocytes # (A) 0.5 k/uL (0-1.0); Monocytes % (A) 6 %; Neutrophils # (A) 5.3 k/uL (1.3-7.7); Neutrophils % (A) 59 %; Platelet Count 399 k/uL (150-450); RBC 4.89 m/uL (3.80-5.40); RDW 13.5 % (11.5-15.5); WBC 9.1 k/uL (3.8-10.6)
[2018-05-19 17:42] LABS: Albumin 4.6 g/dL (3.80-4.90); Albumin/Globulin Ratio 2.3 (1.60-3.17); Anion Gap 4.7 mmol/L (4.00-12.00); Calcium 10.4 mg/dL (8.7-10.3); Carbon Dioxide 32.3 mmol/L (21.6-31.8); LDL Cholesterol,Calculated 80.8 mg/dL (0.0-131.0); Total Bilirubin 0.5 mg/dL (0.2-1.2); Total Protein 6.6 g/dL (6.2-8.2); VLDL Calculation 20.2 mg/dL (5.00-40.00)
[2018-05-19 17:49] LABS: T4, Free (Free Thyroxine) 0.9 ng/dL (0.80-1.80)
[2018-05-19 19:14] LABS: Hemoglobin A1C 6.1 % (4.0-6.0)
== END | disposition home or self-care (01) ==
LOC: LABWHC1 08:54
PROVIDERS: ATTEND Psychiatry & Neurology Psychiatry
DX: E11.9 Type 2 diabetes mellitus without complications (principal); F31.60 Bipolar disorder, current episode mixed, unspecified; R89.9 Unspecified abnormal finding in specimens from other organs, systems and tissues; Z79.899 Other long term (current) drug therapy
CPT/HCPCS: 36415; 80053; 80061; 83036; 84439; 84443; 85025

== ENCOUNTER → 2018-09-07 | Outpatient (CLI) | payer MEDICARE ==
[2018-09-07 19:22] LABS: Hemoglobin A1C 5.9 % (4.0-6.0)
== END | disposition home or self-care (01) ==
LOC: LABWHC1 12:42
PROVIDERS: ATTEND Psychiatry & Neurology Psychiatry
DX: E11.9 Type 2 diabetes mellitus without complications (principal)
CPT/HCPCS: 36415; 82310; 83036

== ENCOUNTER → 2018-10-28 | Outpatient (CLI) | payer MEDICARE ==
[2018-10-28 15:26] LABS: HCT 40.7 % (34.0-46.0); HGB 13.8 gm/dL (11.4-16.0); MCH 29.2 pg (25.0-35.0); Mean Platelet Volume 7.1; Platelet Count 423 k/uL (150-450); RBC 4.74 m/uL (3.80-5.40); RDW 13.7 % (11.5-15.5); WBC 11.1 k/uL (3.8-10.6)
--- NOTE | 2018-10-28 16:02 | XR ---
EXAMINATION TYPE: XR chest 2V DATE OF EXAM: 10/28/2018 COMPARISON: Chest x-ray December 08, 2017. HISTORY: Chronic cough per patient. Shortness of breath per order. TECHNIQUE: Frontal and lateral views of the chest are obtained. FINDINGS: There is chronic parenchymal change without suspicious focal air space opacity, pleural ef fusion, or pneumothorax seen. The cardiac silhouette size is within normal limits. Degenerative spur ring in the mid to lower thoracic spine with slight scoliotic curvature is redemonstrated. IMPRESSION: No acute cardiopulmonary process.
[2018-10-28 16:14] LABS: ABG PCO2 41 mmHg (35-45); ABG PH 7.42 (7.35-7.45); ABG PO2 80 mmHg (83-108); Allen Test Performed? Yes
[2018-10-28 16:15] LABS: ABG HCO3 28 mmol/L (21-25); ABG TCO2 28 mmol/L (19-24)
[2018-10-28 17:08] LABS: Erythrocyte Sedimentation Rate 11 mm/hr (0-20)
== END | disposition home or self-care (01) ==
LOC: LABWHC1 14:49
PROVIDERS: ATTEND Psychiatry & Neurology Psychiatry
DX: J44.9 Chronic obstructive pulmonary disease, unspecified (principal)
CPT/HCPCS: 36415; 36600; 71046; 82805; 85027; 85652; 93005

== ENCOUNTER → 2019-02-15 | Outpatient (CLI) | payer MEDICARE, OTHER ==
[2019-02-15 15:41] VITALS: BP 110/73; PULSE 82; RESP 16; TEMP 98.3; BMI 29.3
--- NOTE | 2019-02-15 15:48 | P.PN ---
Subjective Progress Note Date: 02/15/19 DATE OF SERVICE: 02/15/2019 CHIEF COMPLAINT: Status post gastric bypass HISTORY OF PRESENT ILLNESS: Vianca Goodwin is a 53-year-old female status post gastric bypass, August 29, 2012. She is 6 years out. She has been lost to follow up for the last 2 years. She reports new nausea for the past 6 months. She has gained 27 pounds. She has recent weight gain. She is happy. She denies any abdominal. She has occasional heartburn. She has stuck sensation. She reports upper abdominal pain. No blood in stools. She reports gas bloat. She has chronic constipation. She still uses medicated creams for her panniculitis long-standing for over 6 years. At her height of 5 feet 7.5 inches, her ideal body weight is 158 pounds. Her personal heaviest weight was 267 pounds. Today she comes in weighing 190 pounds from 177 pounds in 2 years. She has gained 12 pounds in 2 years. Lifetime weight loss of 77 pounds. Percent excess weight loss is 71 % lifetime. Body mass index is reduced from 41.3 down to 29.3. She is 32 pounds overweight. PAST MEDICAL HISTORY: 1. Morbid obesity due to excess calories, BMI 41.3 2. Diabetes, type 2, resolved. 3. Iron deficiency anemia. 4. COPD. 5. Obstructive sleep apnea, resolved. 6. Osteoarthritis. 7. Panniculitis. 8. Depression. 9. Bipolar disorder PAST SURGICAL HISTORY: 1. Status post Thomas-en-Y gastric bypass. 2. Laparoscopic cholecystectomy. 3. Laparoscopic ventral hernia repair. 4. Upper endoscopy. 5. Colonoscopy. MEDICATIONS: Home Medications Medication Instructions Recorded Confirmed Aspirin 81 mg PO DAILY 03/29/14 03/20/19 Bisacodyl [Dulcolax] 5 mg PO DAILY PRN 12/17/15 03/20/19 Cholecalciferol [Vitamin D3] 2,000 unit PO DAILY 12/17/15 03/20/19 hydrOXYzine PAMOATE [Hydroxyzine 25 mg PO TID PRN 12/17/15 03/20/19 Pamoate] lamoTRIgine [LaMICtal] 200 mg PO HS 12/17/15 03/20/19 Calcium Carbonate [Calcium] 500 mg PO DAILY 05/07/16 03/20/19 Multivitamins, Thera [Multivitamin] 1 tab PO DAILY 05/07/16 03/20/19 Atorvastatin [Lipitor] 10 mg PO DAILY 07/19/17 03/20/19 Biotin 5 mg PO DAILY 07/19/17 03/20/19 Ferrous Sulfate [Feosol] 325 mg PO DAILY 07/19/17 03/20/19 metFORMIN HCL [Glucophage] 500 mg PO BID 07/19/17 03/20/19 Docusate [Colace] 100 mg PO DAILY 04/27/18 03/20/19 ARIPiprazole [Abilify] 10 mg PO QAM 03/13/19 03/20/19 L.acidoph,Paracasei, B.lactis 1 each PO DAILY 03/13/19 03/20/19 [Probiotic] Omeprazole 20 mg PO DAILY 03/13/19 03/20/19 lamoTRIgine [LaMICtal] 100 mg PO QAM 03/13/19 03/20/19 rOPINIRole HCL [Requip] 0.25 mg PO HS 03/13/19 03/20/19 traZODone HCL [Desyrel] 50 - 100 mg PO HS PRN 03/13/19 03/20/19 Previous Rx's Medication Instructions Recorded Omeprazole 40 mg PO DAILY #14 capsule. 03/20/19 ALLERGIES: ENVIRONMENTAL. SOCIAL HISTORY: Denies alcohol use. FAMILY HISTORY: Father recently last year during complications of heart disease. REVIEW OF SYSTEMS: CONSTITUTIONAL: At her height of 5 feet 7.5 inches, her ideal body weight is 158 pounds. Her personal heaviest weight was 267 pounds. Body mass index is reduced from 41.3. PSYCH: History of depression including bipolar disorder, stable. GASTROINTESTINAL: Reports increased epigastric abdominal pain. Also reports dysphagia to solid foods. HEENT: Denies any troubles with vision or hearing. ENDOCRINE: Has diabetes type 2. Denies any thyroid disorders. RESPIRATORY: Resolution of obstructive sleep apnea. No reports of pneumonias. CARDIAC: History of dyslipidemia, now resolved. Does have resolution of her hypertension. MUSCULOSKELETAL: Has osteoarthritis, including fibromyalgia. NEURO: No reports of strokes or seizure disorders. HEMATOLOGIC: No reports of DVTs or pulmonary emboli. BREASTS: Prior history of breast biopsies, including abnormal mammograms, that have come back benign. RHEUMATOLOGIC: No lupus. No rheumatoid arthritis. SKIN: Chronic panniculitis. No skin cancer. PHYSICAL EXAM: VITAL SIGNS: 5 foot 7.5, 190 pounds. Body mass index 29.3 Vital Signs Temp 98.3 F 02/15/19 15:39 Pulse 82 02/15/19 15:39 Resp 16 02/15/19 15:39 BP 110/73 02/15/19 15:39 Pulse Ox ABDOMEN: Has panniculitis. Soft, non-distended. GENERAL: Well-developed pleasant female in no acute distress. HEENT: No scleral icterus. Extraocular movements grossly intact. Head is atraumatic normocephalic. CHEST: Unlabored respirations. Equal bilateral excursions. CARDIOVASCULAR: Regular rate. Regular rhythm. MUSCULOSKELETAL: No clubbing, cyanosis or edema. NEURO: No focal or lateralizing signs. Cranial nerves II through XII grossly intact. PSYCH: Appropriate affect. Alert and oriented to person, place and time. NECK: Supple without lymphadenopathy. SKIN: Good skin turgor. Well perfused. ASSESSMENT: 1. Morbid obesity due to excess calories. 2. Body mass index reduced from 41.3 down to 29.3 3. History of panniculitis, medically refractory to treatment. 4. Status post Thomas-en-Y gastric bypass. 5. Diabetes, type 2, resolved. 6. Hypertension, resolved. 7. Dyslipidemia, resolved. 8. Depression. 9. Bipolar disorder. 10. Chronic tobacco use. 11. History of osteoarthritis. 12. Epigastric abdominal pain PLAN: 1. Recommend bariatric labs 2. Recommend upper endoscopy 3. Recommend CT of the abdomen and pelvis for abdominal pain. Laboratory Last Values WBC 11.0 k/uL (3.8-10.6) H 02/15/19 16:10 RBC 4.95 m/uL (3.80-5.40) 02/15/19 16:10 Hgb 14.2 gm/dL (11.4-16.0) 02/15/19 16:10 Hct 42.5 % (34.0-46.0) 02/15/19 16:10 MCV 85.8 fL (80.0-100.0) 02/15/19 16:10 MCH 28.7 pg (25.0-35.0) 02/15/19 16:10 MCHC 33.4 g/dL (31.0-37.0) 02/15/19 16:10 RDW 13.0 % (11.5-15.5) 02/15/19 16:10 Plt Count 423 k/uL (150-450) 02/15/19 16:10 PT 9.6 sec (9.0-12.0) 02/15/19 16:10 INR 0.9 (<1.2) 02/15/19 16:10 APTT 26.7 sec (22.0-30.0) 02/15/19 16:10 Sodium 140 mmol/L (135-145) 02/15/19 16:10 Potassium 4.3 mmol/L (3.5-5.5) 02/15/19 16:10 Chloride 105 mmol/L (96-109) 02/15/19 16:10 Carbon Dioxide 25.6 mmol/L (21.6-31.8) 02/15/19 16:10 Anion Gap 9.40 mmol/L (4.00-12.00) 02/15/19 16:10 BUN 13.0 mg/dL (9.0-27.0) 02/15/19 16:10 Creatinine 0.9 mg/dL (0.6-1.5) 02/15/19 16:10 Est GFR (CKD-EPI)AfAm 84.6 (60.0-200.0) 02/15/19 16:10 Est GFR (CKD-EPI)NonAf 73.0 (60.0-200.0) 02/15/19 16:10 BUN/Creatinine Ratio 14.44 Ratio (12.00-20.00) 02/15/19 16:10 Glucose 97 mg/dL (70-110) 02/15/19 16:[address] Glu mg/dL 123 02/15/19 16:10 Hemoglobin A1c 5.9 % (4.0-6.0) 02/15/19 16:10 Calcium 10.0 mg/dL (8.7-10.3) 02/15/19 16:10 Phosphorus 4.5 mg/dL (2.4-5.1) 02/15/19 16:10 Magnesium 2.0 mg/dL (1.5-2.4) 02/15/19 16:10 Iron 63 ug/dL (50-170) 02/15/19 16:10 TIBC 376 ug/dL (228-460) 02/15/19 16:10 % Saturation 16.76 (12.00-45.00) 02/15/19 16:10 Ferritin 38.3 ng/mL (10.0-291.0) 02/15/19 16:10 Total Bilirubin 0.2 mg/dL (0.3-1.2) L 02/15/19 16:10 AST 23 U/L (13-35) 02/15/19 16:10 ALT 18 U/L (8-44) 02/15/19 16:10 Alkaline Phosphatase 92 U/L (41-126) 02/15/19 16:10 Total Protein 6.6 g/dL (6.2-8.2) 02/15/19 16:10 Albumin 4.90 g/dL (3.80-4.90) 02/15/19 16:10 Globulin 1.7 g/dL (1.6-3.3) 02/15/19 16:10 Albumin/Globulin Ratio 2.88 g/dL (1.60-3.17) 02/15/19 16:10 Prealbumin 29.0 mg/dL (18.0-42.0) 02/15/19 16:10 Triglycerides 67.0 mg/dL (0.0-149.0) 02/15/19 16:10 Cholesterol 168 mg/dL (0-200) 02/15/19 16:10 LDL Cholesterol, Calc 74.6 mg/dL (0.0-131.0) 02/15/19 16:10 VLDL Cholesterol, Calc 13.40 mg/dL (5.00-40.00) 02/15/19 16:10 HDL Cholesterol 80.0 mg/dL (40.0-60.0) H 02/15/19 16:10 Cholesterol/HDL Ratio 2.10 02/15/19 16:10 Vitamin A 64 ug/dL (38-106) 02/15/19 16:10 Vitamin B1 75 ug/L (38-122) 02/15/19 16:10 Vitamin B12 706.0 pg/mL (200.0-944.0) 02/15/19 16:10 Vitamin D 25-Hydroxy 61.7 ng/mL (30.0-100.0) 02/15/19 16:10 Folate 21.6 ng/mL 02/15/19 16:10 TSH 1.390 uIU/mL (0.350-5.500) 02/15/19 16:10 PTH Intact 39.4 pg/mL (14.0-72.0) 02/15/19 16:10 Copper 1442 ug/L (810-1990) 02/15/19 16:10 Selenium 161 mcg/L (63-160) H 02/15/19 16:10 Zinc 55 ug/dL (60-130) L 02/15/19 16:10 Zinc is low Selenium is elevated Objective - Vital Signs Vital signs: Vital Signs Temp 98.3 F 02/15/19 15:39 Pulse 82 02/15/19 15:39 Resp 16 02/15/19 15:39 BP 110/73 02/15/19 15:39 Pulse Ox Intake & Output 02/14/19 02/15/19 02/15/19 18:59 06:59 18:59 Weight 86.183 kg - Labs CBC & Chem 7: 02/15/19 16:10 02/15/19 16:10
[2019-02-15 16:49] LABS: HCT 42.5 % (34.0-46.0); HGB 14.2 gm/dL (11.4-16.0); MCH 28.7 pg (25.0-35.0); MCHC 33.4 g/dL (31.0-37.0); MCV 85.8 fL (80.0-100.0); Mean Platelet Volume 6.5; Platelet Count 423 k/uL (150-450); RBC 4.95 m/uL (3.80-5.40)
[2019-02-15 16:59] LABS: INR 0.9 (<1.2); Partial Thromboplastin Time 26.7 sec (22.0-30.0); Prothrombin Time 9.6 sec (9.0-12.0)
[2019-02-16 01:03] LABS: % Iron Saturation 16.76 (12.00-45.00); African American GFR (CKD) 84.6 (60.0-200.0); Albumin 4.9 g/dL (3.80-4.90); Albumin/Globulin Ratio 2.88 (1.60-3.17); Anion Gap 9.4 mmol/L (4.00-12.00); BUN/Creat Ratio 14.44 Ratio (12.00-20.00); Carbon Dioxide 25.6 mmol/L (21.6-31.8); Chol/HDL Ratio 2.1; Globulin 1.7 g/dL (1.6-3.3); LDL Cholesterol,Calculated 74.6 mg/dL (0.0-131.0); Phosphorus 4.5 mg/dL (2.4-5.1); Potassium 4.3 mmol/L (3.5-5.5); Total Bilirubin 0.2 mg/dL (0.3-1.2); Total Protein 6.6 g/dL (6.2-8.2); VLDL Calculation 13.4 mg/dL (5.00-40.00)
[2019-02-16 01:14] LABS: Ferritin 38.3 ng/mL (10.0-291.0)
[2019-02-16 01:19] LABS: Folate, Serum 21.6 ng/mL
[2019-02-16 01:55] LABS: Hemoglobin A1C 5.9 % (4.0-6.0)
[2019-02-17 12:52] LABS: Vit B1(Thiamine) 75 ug/L (38-122)
[2019-02-17 13:12] LABS: Zinc, Serum 55 ug/dL (60-130)
[2019-02-18 09:25] LABS: Vitamin A 64 ug/dL (38-106)
[2019-02-20 17:42] LABS: Selenium 161 mcg/L (63-160)
== END | disposition home or self-care (01) ==
LOC: BARWHC3 14:16
PROVIDERS: ATTEND Surgery Plastic and Reconstructive Surgery
DX: M79.3 Panniculitis, unspecified (principal); R10.10 Upper abdominal pain, unspecified; R14.0 Abdominal distension (gaseous); Z79.899 Other long term (current) drug therapy; E66.01 Morbid (severe) obesity due to excess calories; E21.1 Secondary hyperparathyroidism, not elsewhere classified; E89.1 Postprocedural hypoinsulinemia; D50.9 Iron deficiency anemia, unspecified; K90.9 Intestinal malabsorption, unspecified; E55.9 Vitamin D deficiency, unspecified; N19 Unspecified kidney failure; K76.9 Liver disease, unspecified; K50.90 Crohn's disease, unspecified, without complications; Z68.29 Body mass index [BMI] 29.0-29.9, adult
CPT/HCPCS: 84255; 84134; 84425; 80061; 80053; 82607; 82728; 82525; 82746; 83540; 83550; 83735; 84100; 84443; 84590; 84630; 85027; 85610; 85730; 82306; 83970; 83036; 36415; G0463; 99211

== ENCOUNTER → 2019-03-20 | Day surgery (SDC) | payer MEDICARE, OTHER ==
[2019-03-13 15:57] VITALS: BMI 28.8
--- NOTE | 2019-03-19 23:06 | P.GSHP ---
History of Present Illness H&P Date: 03/20/19 CHIEF COMPLAINT: GERD HISTORY OF PRESENT ILLNESS: The patient is a 54 year-old female who presents reports gastroesophageal reflux disease. Upper endoscopy was offered for further evaluation and management. PAST MEDICAL HISTORY: Please see list. PAST SURGICAL HISTORY: Please see list. MEDICATIONS: Please see list. ALLERGIES: Please see list. SOCIAL HISTORY: No illicit drug use FAMILY HISTORY: No reports of Crohn disease or ulcerative colitis. REVIEW OF ORGAN SYSTEMS: CONSTITUTIONAL: No reports of fevers or chills. GI: Denies any blood in stools or constipation. PHYSICAL EXAM: VITAL SIGNS: Stable GENERAL: Well-developed and pleasant in no acute distress. HEENT: No scleral icterus. Extraocular movements grossly intact. Moist buccal mucosa. NECK: Supple without lymphadenopathy. CHEST: Unlabored respirations. Equal bilateral excursions. CARDIOVASCULAR: Regular rate and rhythm. Distal 2+ pulses. ABDOMEN: Soft, nondistended. MUSCULOSKELETAL: No clubbing, cyanosis, or edema. ASSESSMENT: 1. Gastroesophageal reflux disease PLAN: 1. Recommend proceeding with an upper endoscopy Past Medical History Past Medical History: Cancer, Diabetes Mellitus, GERD/Reflux, Hearing Disorder / Deafness, Musculoskeletal Disorder, Osteoarthritis (OA) Additional Past Medical History / Comment(s): PAST HX OF DM PRIOR TO WGT LOSS, NOW POSS HYPOGYLCEMIA. BACK PAIN. Skin CA. GETS NAUSEA WHEN EATING OFTEN, ALOT OF HEARTBURN. History of Any Multi-Drug Resistant Organisms: None Reported Past Surgical History: Bariatric Surgery, Breast Surgery, Section, Cholecystectomy, Hernia Repair, Orthopedic Surgery, Uterine Ablation Additional Past Surgical History / Comment(s): RT Knee SCOPE. KAILEY MULT TOES Surgery. Sinus Surgery. Gastric Bypass 2013. Breast biopsy. CERVICAL CONE PROC. PAIN PROC BACK, NECK,kailey eyelid procedure Past Anesthesia/Blood Transfusion Reactions: Previous Problems w/ Anesthesia, Motion Sickness Additional Past Anesthesia/Blood Transfusion Reaction / Comment(s): Woke up once during anesthesia. Mom has difficulty coming out of anesthesia and low b/p. Smoking Status: Current every day smoker - Past Family History Father History Unknown: Yes Family Medical History: Asthma, Cancer, Congestive Heart Failure (CHF), Diabetes Mellitus, Eye Disorder, Hearing Disorder / Deafness, Hypertension, Seizure Disorder, Skin Disorder, Vascular Disorder Additional Family Medical History / Comment(s): Father also had Leukemia, emphsyma, arthritis, with kidney failure Medications and Allergies Home Medications Medication Instructions Recorded Confirmed Type Aspirin 81 mg PO DAILY 03/29/14 03/13/19 History Bisacodyl [Dulcolax] 5 mg PO DAILY PRN 12/17/15 03/13/19 History Cholecalciferol [Vitamin D3] 2,000 unit PO DAILY 12/17/15 03/13/19 History hydrOXYzine PAMOATE [Hydroxyzine 25 mg PO TID PRN 12/17/15 03/13/19 History Pamoate] lamoTRIgine [LaMICtal] 200 mg PO HS 12/17/15 03/13/19 History Calcium Carbonate [Calcium] 500 mg PO DAILY 05/07/16 03/13/19 History Multivitamins, Thera [Multivitamin] 1 tab PO DAILY 05/07/16 03/13/19 History Atorvastatin [Lipitor] 10 mg PO DAILY 07/19/17 03/13/19 History Biotin 5 mg PO DAILY 07/19/17 03/13/19 History Ferrous Sulfate [Feosol] 325 mg PO DAILY 07/19/17 03/13/19 History metFORMIN HCL [Glucophage] 500 mg PO BID 07/19/17 03/13/19 History Docusate [Colace] 100 mg PO DAILY 04/27/18 03/13/19 History ARIPiprazole [Abilify] 10 mg PO QAM 03/13/19 03/13/19 History L.acidoph,Paracasei, B.lactis 1 each PO DAILY 03/13/19 03/13/19 History [Probiotic] Omeprazole 20 mg PO DAILY 03/13/19 03/13/19 History lamoTRIgine [LaMICtal] 100 mg PO QAM 03/13/19 03/13/19 History rOPINIRole HCL [Requip] 0.25 mg PO HS 03/13/19 03/13/19 History traZODone HCL [Desyrel] 50 - 100 mg PO HS PRN 03/13/19 03/13/19 History Allergies Allergy/AdvReac Type Severity Reaction Status Date / Time grass pollen-perennial rye, Allergy ITCHY,WATERY Verified 03/13/19 15:46 standar EYES AND [grass poll-perennial NOSE rye,std] rivaroxaban [From Xarelto] Allergy NEVER Verified 03/13/19 15:46 WANTS TO HAVE tape Allergy tears Uncoded 03/13/19 15:46 skin,rash, states "paper tape is ok"
[~2019-03-20] MED LIST changes: +LIDOCAINE 1% 20 ML VIAL (10MG/ML) FOR IV START INTRADERMA ONE; -LIDOCAINE 1% 20 ML VIAL (10MG/ML) FOR IV START INTRADERMA PRN; +LIDOCAINE 1% INJ 10MG/ML (20 ML MDV) ONE; +PROPOFOL 10 MG/ML 20 ML VIAL IV ONE
[2019-03-20 07:22] VITALS: TEMP 97.9
[2019-03-20 07:29] LABS: Glucose,Whole Blood 120 mg/dL (75-99)
[2019-03-20 08:03] VITALS: BP 112/80; PULSE 81; RESP 17
--- NOTE | 2019-03-20 08:03 | P.PCN ---
Date of Procedure: 03/20/19 Description of Procedure: PREOPERATIVE DIAGNOSIS: Dysphagia. Epigastric abdominal pain POSTOPERATIVE DIAGNOSIS: Dysphagia. 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 SURGEON: Agatha Jaeger MD ANESTHESIA: MAC. INDICATIONS: The patient is a 54-year-old female who presents with a history of dysphagia and epigastric abdominal pain. Benefits and risks of the procedure were described. Informed consent was obtained. DESCRIPTION: The patient was brought into the endoscopy suite and laid in the left lateral decubitus position. After a timeout was confirmed, the procedure was initiated. An Olympus gastroscope was passed along the posterior oropharynx down to the distal esophagus where the squamocolumnar junction was unremarkable. Evidence of tertiary contractions were identified of the mid to distal esophagus. The gastric pouch was entered. A gastrojejunal stricture of 16 mm was found as the adult gastroscope was 9.5 mm in size. A Air2Web balloon dilator was placed through the scope. Final insufflation up to 20 mm was performed with a total of 2 minutes. The scope was advanced up to 50 cm from the incisors into the Thomas limb. The mucosa of the gastrojejunal anastomosis was intact. However chronic gastrojejunal marginal ulcer was encountered. No full-thickness injury was encountered. The GI tract was desufflated. The patient tolerated the procedure well. FINDINGS: Squamocolumnar junction unremarkable at 37 cm. Stricture of approximately 16 mm encountered. Chronic gastrojejunal ulceration encountered, superficial, small, less than 3 mm Successful balloon dilatation to 20 mm. Gastric pouch 3 cm. Tertiary esophageal contractions RECOMMENDATIONS: Recommend omeprazole 40 mg daily for 2 weeks for gastrojejunal ulcers Plan - Discharge Summary New Discharge Prescriptions: New Omeprazole 40 mg PO DAILY #14 capsule.dr No Action Aspirin 81 mg PO DAILY hydrOXYzine PAMOATE [Hydroxyzine Pamoate] 25 mg PO TID PRN PRN Reason: panic attacks Cholecalciferol [Vitamin D3] 2,000 unit PO DAILY Bisacodyl [Dulcolax] 5 mg PO DAILY PRN PRN Reason: Constipation lamoTRIgine [LaMICtal] 200 mg PO HS Multivitamins, Thera [Multivitamin] 1 tab PO DAILY Calcium Carbonate [Calcium] 500 mg PO DAILY metFORMIN HCL [Glucophage] 500 mg PO BID Ferrous Sulfate [Feosol] 325 mg PO DAILY Atorvastatin [Lipitor] 10 mg PO DAILY Biotin 5 mg PO DAILY Docusate [Colace] 100 mg PO DAILY lamoTRIgine [LaMICtal] 100 mg PO QAM traZODone HCL [Desyrel] 50 - 100 mg PO HS PRN PRN Reason: sleep rOPINIRole HCL [Requip] 0.25 mg PO HS Omeprazole 20 mg PO DAILY ARIPiprazole [Abilify] 10 mg PO QAM L.acidoph,Paracasei, B.lactis [Probiotic] 1 each PO DAILY Discharge Medication List Aspirin 81 mg PO DAILY 03/29/14 [History] Bisacodyl [Dulcolax] 5 mg PO DAILY PRN 12/17/15 [History] Cholecalciferol [Vitamin D3] 2,000 unit PO DAILY 12/17/15 [History] hydrOXYzine PAMOATE [Hydroxyzine Pamoate] 25 mg PO TID PRN 12/17/15 [History] lamoTRIgine [LaMICtal] 200 mg PO HS 12/17/15 [History] Calcium Carbonate [Calcium] 500 mg PO DAILY 05/07/16 [History] Multivitamins, Thera [Multivitamin] 1 tab PO DAILY 05/07/16 [History] Atorvastatin [Lipitor] 10 mg PO DAILY 07/19/17 [History] Biotin 5 mg PO DAILY 07/19/17 [History] Ferrous Sulfate [Feosol] 325 mg PO DAILY 07/19/17 [History] metFORMIN HCL [Glucophage] 500 mg PO BID 07/19/17 [History] Docusate [Colace] 100 mg PO DAILY 04/27/18 [History] ARIPiprazole [Abilify] 10 mg PO QAM 03/13/19 [History] L.acidoph,Paracasei, B.lactis [Probiotic] 1 each PO DAILY 03/13/19 [History] Omeprazole 20 mg PO DAILY 03/13/19 [History] lamoTRIgine [LaMICtal] 100 mg PO QAM 03/13/19 [History] rOPINIRole HCL [Requip] 0.25 mg PO HS 03/13/19 [History] traZODone HCL [Desyrel] 50 - 100 mg PO HS PRN 03/13/19 [History] Omeprazole 40 mg PO DAILY #14 capsule. 03/20/19 [Rx] Follow up Appointment(s)/Referral(s): [facility] [NON-STAFF] - 04/05/19 Patient Instructions/Handouts: *[facility] - (Anesthesia) Endoscopy Discharge Instructions, Esophageal Dilation (DC) Discharge Disposition: HOME SELF-CARE
== END | disposition home or self-care (01) ==
LOC: ORWHC2ENDO 06:54
PROVIDERS: ATTEND Surgery Plastic and Reconstructive Surgery
DX: K22.2 Esophageal obstruction (principal); K91.89 Other postprocedural complications and disorders of digestive system; K31.89 Other diseases of stomach and duodenum; K28.7 Chronic gastrojejunal ulcer without hemorrhage or perforation; K22.8 Other specified diseases of esophagus; F17.210 Nicotine dependence, cigarettes, uncomplicated; E11.9 Type 2 diabetes mellitus without complications; M19.90 Unspecified osteoarthritis, unspecified site; H91.90 Unspecified hearing loss, unspecified ear; F41.9 Anxiety disorder, unspecified; F31.9 Bipolar disorder, unspecified; F41.0 Panic disorder [episodic paroxysmal anxiety]; K21.9 Gastro-esophageal reflux disease without esophagitis; Z98.84 Bariatric surgery status; Z98.890 Other specified postprocedural states; Z85.828 Personal history of other malignant neoplasm of skin; Z79.84 Long term (current) use of oral hypoglycemic drugs; Z79.82 Long term (current) use of aspirin; Z79.899 Other long term (current) drug therapy; Z91.048 Other nonmedicinal substance allergy status; Z88.8 Allergy status to other drugs, medicaments and biological substances; Z90.49 Acquired absence of other specified parts of digestive tract; Z82.49 Family history of ischemic heart disease and other diseases of the circulatory system; Z83.3 Family history of diabetes mellitus; Z82.0 Family history of epilepsy and other diseases of the nervous system; Z82.5 Family history of asthma and other chronic lower respiratory diseases; Z80.6 Family history of leukemia; Z82.61 Family history of arthritis
CPT/HCPCS: 43245; J2001; J2704; C1726

== ENCOUNTER → 2019-03-23 | Outpatient (CLI) | payer MEDICARE, OTHER ==
[2019-03-23 16:20] LABS: African American GFR (CKD) >90 (>60 ml/min/1.73 sqM); Blood Urea Nitrogen 15 mg/dL (7-17); Non-African American GFR(CKD) 88 (>60 ml/min/1.73 sqM)
--- NOTE | 2019-03-24 10:58 | CT ---
EXAMINATION TYPE: CT abdomen pelvis w con DATE OF EXAM: 03/23/2019 COMPARISON: 11/10/2012 INDICATION: Constipation. DLP: 1130.1 mGycm, Automated exposure control for dose reduction was used. CONTRAST: 100 mL of Isovue 300. Study performed with Oral Contrast TECHNIQUE: Axial images were obtained from above the diaphragm to the pubic rami in the axial plane a t 5 mm thick sections. Reconstructed images are reviewed on the computer in the coronal plane. FINDINGS: Limited CT sections are obtained the lung bases. The lung bases are clear. CT ABDOMEN: Liver: Normal Spleen: Normal Pancreas: Normal, pancreatic duct is at the upper limits of normal for size. No abrupt cut off is lucretia ntified. Adrenal glands: The adrenal glands are normal. Gallbladder: Surgically absent Kidneys: No masses are evident. No hydronephrosis is present. No cysts are present. Delayed images were obtained through the kidneys, which remain unremarkable. Aorta: Vascular calcification is within the aorta. Inferior vena cava: Normal. CT PELVIS: Loops of bowel within the abdomen and pelvis are normal. There are loops of bowel which are incom pletely distended or lack oral contrast limiting their evaluation. Appendix: Not identified. No suspicious tubular structures or inflammatory changes are evident. Urinary bladder: Normal. Genitourinary structures: Uterus has a normal appearance. There is a dense area within the endometria l canal midportion of uncertain etiology. This is a linear dense area measuring 310 Hounsfield units calcification or foreign body could be considered. There is a cyst on the left ovary measuring 1.8 cm . Osseous structures: No suspicious lytic or sclerotic lesions. COMPARISON: Pancreatic duct is more prominent than the comparison. Fatty infiltration of the liver de la cruz s largely resolved. Density within the uterus was present previously IMPRESSIONS: 1. Significant changes of fecal retention are not evident. No obstruction is identified. #2 left ova kai cyst measuring 1.8 cm.
== END | disposition home or self-care (01) ==
LOC: RADCTMAIN 14:55
PROVIDERS: ATTEND Surgery Plastic and Reconstructive Surgery
DX: R10.12 Left upper quadrant pain (principal); N83.202 Unspecified ovarian cyst, left side
CPT/HCPCS: 82565; 84520; 74177; 36415; Q9967 ×2

== ENCOUNTER → 2019-09-19 | Outpatient (CLI) | payer MEDICARE ==
[2019-09-19 12:52] LABS: Basophils # (A) 0.1 k/uL (0-0.2); Basophils % (A) 1 %; Eosinophils # (A) 0.5 k/uL (0-0.7); Eosinophils % (A) 4 %; HGB 13.3 gm/dL (11.4-16.0); Lymphocytes # (A) 2.8 k/uL (1.0-4.8); Lymphocytes % (A) 25 %; MCH 27.8 pg (25.0-35.0); MCHC 32.4 g/dL (31.0-37.0); Mean Platelet Volume 7.4; Monocytes # (A) 0.7 k/uL (0-1.0); Monocytes % (A) 6 %; Neutrophils % (A) 62 %; Platelet Count 377 k/uL (150-450); RBC 4.76 m/uL (3.80-5.40); RDW 13.2 % (11.5-15.5); WBC 11.2 k/uL (3.8-10.6)
[2019-09-19 18:50] LABS: Albumin 4.6 g/dL (3.80-4.90); Albumin/Globulin Ratio 2.3 (1.60-3.17); Anion Gap 1.4 mmol/L (4.00-12.00); Carbon Dioxide 28.6 mmol/L (21.6-31.8); Chol/HDL Ratio 2.42; LDL Cholesterol,Calculated 70.4 mg/dL (0.0-131.0); Non-African American GFR(CKD) 72.5 (60.0-200.0); Potassium 4.4 mmol/L (3.5-5.5); Total Bilirubin 0.4 mg/dL (0.2-1.2); Total Protein 6.6 g/dL (6.2-8.2); VLDL Calculation 21.6 mg/dL (5.00-40.00)
[2019-09-19 18:59] LABS: T4, Free (Free Thyroxine) 1.2 ng/dL (0.80-1.80)
[2019-09-19 19:40] LABS: Microalbumin Creatinine Ratio <30 mg/g Creat (0-30); Urine Creatinine 54.3 mg/dL
== END | disposition home or self-care (01) ==
LOC: LABWHC1 11:01
PROVIDERS: ATTEND Psychiatry & Neurology Psychiatry
DX: F31.60 Bipolar disorder, current episode mixed, unspecified (principal); Z79.899 Other long term (current) drug therapy; E11.9 Type 2 diabetes mellitus without complications; E78.5 Hyperlipidemia, unspecified; E03.9 Hypothyroidism, unspecified
CPT/HCPCS: 36415; 80053; 80061; 82043; 82570; 83036; 84439; 84443; 85025

== ENCOUNTER → 2019-10-26 | Outpatient (CLI) | payer MEDICARE ==
--- NOTE | 2019-10-30 14:02 | MM ---
Reason for exam: screening (asymptomatic). Last mammogram was performed 1 year and 5 months ago. History: Patient is postmenopausal and has history of other cancer at age 46. Family history of breast cancer in maternal grandmother. Benign US breast aspiration ea add LT of the left breast, November 30, 2014. Benign US breast aspiration ea add LT of the left breast, November 30, 2014. Benign US breast aspiration single LT of the left breast, November 30, 2014. Benign US breast aspiration single RT of the right breast, November 30, 2014. Benign right mammotome panel of the right breast, May 29, 2013. Physical Findings: A clinical breast exam by your physician is recommended on an annual basis and results should be correlated with mammographic findings. MG 3D Screening Mammo W/Cad Bilateral CC and MLO view(s) were taken. Prior study comparison: June 09, 2018, bilateral MG 3d screening mammo w/cad. November 06, 2016, bilateral MG screening mammo w CAD. The breast tissue is heterogeneously dense. This may lower the sensitivity of mammography. Finding: There are typically benign round, diffuse/scattered and grouped calcifications in both breasts. Previous mammotome biopsy in the right breast. There is a chronic nodularity bilaterally. There is no discrete abnormality. Increase in number of calcifications since June 09, 2018 and November 06, 2016. ASSESSMENT: Benign, BI-RAD 2 RECOMMENDATION: Routine screening mammogram of both breasts in 1 year.
== END | disposition home or self-care (01) ==
LOC: RADMAMWWP 11:04
PROVIDERS: ATTEND Family Medicine
DX: Z12.31 Encounter for screening mammogram for malignant neoplasm of breast (principal)
CPT/HCPCS: 77063; 77067

== ENCOUNTER → 2019-12-25 | Outpatient (CLI) | payer MEDICARE ==
--- NOTE | 2019-12-26 10:48 | ECHOF ---
Referral Reason:R01.1 cardiac murmur,unspecified MEASUREMENTS -------- HEIGHT: 172.7 cm WEIGHT: 93.4 kg BP: RVIDd: 3.1 cm (< 3.3) IVSd: 1.2 cm (0.6 - 1.1) LVIDd: 3.9 cm (3.9 - 5.3) LVPWd: 1.2 cm (0.6 - 1.1) IVSs: 1.6 cm LVIDs: 2.7 cm LVPWs: 1.6 cm LA Diam: 3.4 cm (2.7 - 3.8) LAESV Index (A-L): 24.64 ml/m Ao Diam: 3.4 cm (2.0 - 3.7) AV Cusp: 1.6 cm (1.5 - 2.6) MV EXCURSION: 12.108 mm (> 18.000) MV EF SLOPE: 68 mm/s (70 - 150) EPSS: 0.4 cm AV maxP.42 mmHg AV maxP.42 mmHg AV meanP.90 mmHg FINDINGS -------- Sinus rhythm. This was a technically adequate study. The left ventricular size is normal. There is borderline concentric left ventricular hypertrophy. Overall left ventricular systolic function is normal with, an EF between 60 - 65 %. The right ventricle is normal in size. Normal LA size by volume 22+/-6 ml/m2. The right atrium is normal in size. Interatrial and interventricular septum intact. Aortic valve is trileaflet and is mildly thickened. There is mild aortic stenosis present. Peak/m traci gradient across the Aortic Valve is 17.42mmHg / 6.90mmHg. The mitral valve leaflets are mildly thickened. There is trace mitral regurgitation. The tricuspid valve appears structurally normal. There is no pulmonic regurgitation present. The aortic root size is normal. Normal inferior vena cava with normal inspiratory collapse consistent with estimated right atrial pre ssure of 5 mmHg. There is no pericardial effusion. CONCLUSIONS -------- 1. The left ventricular size is normal. 2. There is borderline concentric left ventricular hypertrophy. 3. Overall left ventricular systolic function is normal with, an EF between 60 - 65 %. 4. Aortic valve is trileaflet and is mildly thickened. 5. There is mild aortic stenosis present. 6. Peak/mean gradient across the Aortic Valve is 17.42mmHg / 6.90mmHg. 7. The mitral valve leaflets are mildly thickened. 8. There is trace mitral regurgitation. 9. There is no pericardial effusion. WINDER FIXER: Delphine Sweet RDCS
== END | disposition home or self-care (01) ==
LOC: RADECHMAIN 14:47
PROVIDERS: ATTEND Family Medicine
DX: I35.0 Nonrheumatic aortic (valve) stenosis (principal); I05.9 Rheumatic mitral valve disease, unspecified
CPT/HCPCS: 93306

== ENCOUNTER → 2019-12-25 | Outpatient (CLI) | payer MEDICARE ==
--- NOTE | 2019-12-26 09:02 | MR ---
EXAMINATION TYPE: MR shoulder LT wo con DATE OF EXAM: 12/25/2019 COMPARISON: None HISTORY: Left shoulder pain TECHNIQUE: Multiplanar, multisequence imaging of the shoulder is performed without contrast. FINDINGS: There is some motion on the exam. Rotator Cuff: There is abnormal thickening of the rotator cuff with abnormal increased intrinsic sign al, increased signal extends at the supraspinatus undersurface to the expected insertion and T2-weigh abhi sequences anteriorly consistent with a partial undersurface tear Acromioclavicular Joint: Hypertrophic changes are present. Distal acromion is down turn, there is a d istal acromial spur Glenohumeral Joint: Intact Labrum: No evident tear. Biceps Tendon: Shows a normal position within the bicipital groove with some associated fluid signal suggesting tenosynovitis Bone marrow signal: Probable pseudocysts present within the humeral head Other: There is some fluid signal in the subacromial subdeltoid bursa. IMPRESSION: Partial full-thickness tear of the rotator cuff anteriorly, some extension centrally may represent an undersurface tear. Correlate for impingement.
== END | disposition home or self-care (01) ==
LOC: RADMRIMAIN 21:36
PROVIDERS: ATTEND Family Medicine
DX: M75.112 Incomplete rotator cuff tear or rupture of left shoulder, not specified as traumatic (principal)
CPT/HCPCS: 93306

== ENCOUNTER → 2020-01-11 | Outpatient (CLI) | payer MEDICARE ==
--- NOTE | 2020-01-16 14:54 | HM ---
Baseline rhythm is sinus. The average heart rate is 85 with a minimum of 56 and maximum 136. Occasional PVCs were noted with one couplet. Occasional APCs were noted. The patient complained of palpitations and shortness of breath. Did not correlate with any significant cardiac events. Final impression: #1. Sinus rhythm. #2. Occasional APCs them by 3 occasional PVCs. #4. Patient's symptoms of shortness of breath and palpitations did not correlate with any significant cardiac events MTDD
== END | disposition home or self-care (01) ==
LOC: RADECHMAIN 09:34
PROVIDERS: ATTEND Family Medicine
DX: R00.8 Other abnormalities of heart beat (principal)
CPT/HCPCS: 93225; 93226

== ENCOUNTER → 2020-06-27 | Outpatient (CLI) | payer MEDICARE ==
[2020-06-27 09:46] LABS: Appearance,Urine Cloudy (Clear); Bilirubin,Urine Negative (Negative); Blood,Urine Negative (Negative); Color,Urine Yellow; Glucose,Urine (UA) Negative (Negative); Ketones,Urine Negative (Negative); Leukocyte Esterase,Urine Negative (Negative); Mucus,Urine Moderate /hpf; Nitrite,Urine Negative (Negative); PH, Urine 5.5 (5.0-8.0); Protein,Urine Negative (Negative); RBC,Urine 1 /hpf (0-5); Specific Gravity,Urine 1.019 (1.001-1.035); Squamous Epithelial Cell,Urine 7 /hpf (0-4); WBC,Urine 1 /hpf (0-5)
[2020-06-27 15:50] LABS: HCT 40.8 % (37.2-46.3); HGB 12.9 g/dL (12.0-15.0); MCH 27.7 pg (27.0-32.0); MCHC 31.6 g/dL (32.0-37.0); MCV 87.7 fL (80.0-97.0); Platelet Count 392 X 10*3/uL (140-440); RBC 4.65 X 10*6/uL (4.10-5.20); RDW 13.8 % (11.5-14.5); WBC 10.96 X 10*3/uL (4.50-10.00)
[2020-06-27 20:17] LABS: African American GFR (CKD) 83.4 (60.0-200.0); Albumin 4.8 g/dL (3.80-4.90); Anion Gap 7.1 mmol/L (4.00-12.00); BUN/Creat Ratio 12.22 Ratio (12.00-20.00); Calcium 9.6 mg/dL (8.7-10.3); Carbon Dioxide 24.9 mmol/L (21.6-31.8); Chol/HDL Ratio 2.88; Globulin 1.6 g/dL (1.6-3.3); LDL Cholesterol,Calculated 91.4 mg/dL (0.0-131.0); Potassium 4.5 mmol/L (3.5-5.5); Total Bilirubin 0.5 mg/dL (0.3-1.2); Total Protein 6.4 g/dL (6.2-8.2); VLDL Calculation 19.6 mg/dL (5.00-40.00)
== END | disposition home or self-care (01) ==
LOC: LABWHC1 08:22
PROVIDERS: ATTEND Psychiatry & Neurology Psychiatry
DX: E11.9 Type 2 diabetes mellitus without complications (principal); F31.60 Bipolar disorder, current episode mixed, unspecified; Z79.899 Other long term (current) drug therapy
CPT/HCPCS: 36415; 80053; 80061; 81001; 83036; 84439; 84443; 85027

== ENCOUNTER 2020-07-30 06:52 | Day surgery (SDC) | payer MEDICARE ==
[2020-07-26 12:25] VITALS: BMI 34.7
[~2020-07-30 06:52] MED LIST changes: -LIDOCAINE 1% 20 ML VIAL (10MG/ML) FOR IV START INTRADERMA ONE; -LIDOCAINE 1% INJ 10MG/ML (20 ML MDV) ONE; -PROPOFOL 10 MG/ML 20 ML VIAL IV ONE
[2020-07-30] MEDS ORDERED: LACTATED RINGERS 1,000 ML IV ONE (07:15)
[2020-07-30 07:16] VITALS: RESP 18; TEMP 97.3
[2020-07-30] MEDS ORDERED: LIDOCAINE 1% (10MG/ML) FOR IV START INTRADERMA ONE (07:22)
[2020-07-30 07:26] LABS: Glucose,Whole Blood 116 mg/dL (75-99)
[2020-07-30] MEDS ORDERED: PROPOFOL 10 MG/ML 20 ML VIAL IV ONE (07:50)
--- NOTE | 2020-07-30 08:40 | P.PCN ---
Date of Procedure: 07/30/20 Description of Procedure: BRIEF HISTORY: Patient is a 55-year-old female presents for outpatient colonoscopy for benign neoplasm of the cecum and a personal history of colon polyps. Last colonoscopy 3 years ago with multiple polyps removed at that time. No change in bowel habits or blood per rectum reported. PROCEDURE PERFORMED: Colonoscopy with polypectomy. PREOPERATIVE DIAGNOSIS: Benign neoplasm of the cecum, personal history of colon polyps, last colonoscopy 3 years ago. ESTIMATED BLOOD LOSS: Minimal. IV sedation per Anesthesia. PROCEDURE: After informed consent was obtained, the patient, was brought into the endoscopy unit. IV sedation was administered by Anesthesia under continuous monitoring. Digital rectal examination was normal. Initially the Olympus CF-190 flexible video colonoscope was then inserted in the rectum, gradually advanced into the cecum without any difficulty. Careful examination was performed as the scope was gradually being withdrawn. Ileocecal valve and the appendiceal orifice were visualized and appeared normal. Prep was good. Mucosa of the cecum, ascending colon, transverse colon, descending colon, sigmoid colon, and rectum appeared normal. Multiple polyps measuring 1-2 mm in size removed with cold forcep polypectomy from the descending colon, transverse colon 2, hepatic flexure, and ileocecal valve. A flat 6 mm descending colon polyp removed with cold snare polypectomy. Retroflexion was performed in the rectum and no lesions were seen, low-grade internal hemorrhoids noted. The patient tolerated the procedure well. IMPRESSION: Flat descending colon polyp removed with cold snare polypectomy. 5 diminutive polyps removed with cold forcep polypectomy from the descending colon, transverse colon 2, hepatic flexure and ileocecal valve. Internal hemorrhoids. RECOMMENDATIONS: Findings of this examination were discussed with the patient and her family. Okay to resume diet. Okay to resume medications. Await pathology from polypectomies. Recommend repeat colonoscopy in 3 years for follow-up of colon polyps pending pathology.
[2020-07-30 09:01] VITALS: BP 137/82; PULSE 75
== END 2020-07-30 09:44 | disposition home or self-care (01) ==
LOC: ORWHC2ENDO 06:52
PROVIDERS: ATTEND Internal Medicine
DX: Z12.11 Encounter for screening for malignant neoplasm of colon (principal); D12.4 Benign neoplasm of descending colon; D12.3 Benign neoplasm of transverse colon; D12.0 Benign neoplasm of cecum; K64.8 Other hemorrhoids; I10 Essential (primary) hypertension; E78.5 Hyperlipidemia, unspecified; E11.9 Type 2 diabetes mellitus without complications; J44.9 Chronic obstructive pulmonary disease, unspecified; F31.9 Bipolar disorder, unspecified; Z79.84 Long term (current) use of oral hypoglycemic drugs; Z79.899 Other long term (current) drug therapy; Z86.010 Personal history of colon polyps; Z88.8 Allergy status to other drugs, medicaments and biological substances
CPT/HCPCS: 88305; 45380; 45385; J2704

== ENCOUNTER → 2020-12-26 | Outpatient (CLI) | payer MEDICARE ==
[2020-12-26 19:03] LABS: HCT 41.8 % (37.2-46.3); HGB 13.1 g/dL (12.0-15.0); MCH 26.7 pg (27.0-32.0); MCHC 31.3 g/dL (32.0-37.0); MCV 85.3 fL (80.0-97.0); Mean Platelet Volume 10.5 fL (9.5-12.2); Platelet Count 434 X 10*3/uL (140-440); RDW 14.1 % (11.5-14.5); WBC 12.19 X 10*3/uL (4.50-10.00)
[2020-12-27 03:00] LABS: ALT 12 U/L (8-44); AST 16 U/L (13-35); Albumin 4.7 g/dL (3.8-4.9); Albumin/Globulin Ratio 2.12 (1.60-3.17); Alkaline Phosphatase 124 U/L (41-126); BUN/Creat Ratio 11.51 Ratio (12.00-20.00); Blood Urea Nitrogen 10.2 mg/dL (9.0-27.0); Calcium 9.7 mg/dL (8.7-10.3); Carbon Dioxide 23.4 mmol/L (21.6-31.8); Chloride 105 mmol/L (96-109); Chol/HDL Ratio 3.21 Ratio; Globulin 2.2 g/dL (1.6-3.3); Glucose 94 mg/dL (70-110); LDL Cholesterol,Calculated 71.4 mg/dL (0.0-131.0); Non-African American GFR(CKD) 73.4 (60.0-200.0); Potassium 4.9 mmol/L (3.5-5.5); Sodium 143 mmol/L (135-145); Total Bilirubin <0.20 mg/dL (0.30-1.20); Total Protein 6.8 g/dL (6.2-8.2)
== END | disposition home or self-care (01) ==
LOC: LABWHC1 11:17
PROVIDERS: ATTEND Psychiatry & Neurology Psychiatry
DX: E11.9 Type 2 diabetes mellitus without complications (principal); F31.60 Bipolar disorder, current episode mixed, unspecified
CPT/HCPCS: 36415; 80053; 80061; 83036; 84439; 84443; 85027

== ENCOUNTER → 2021-01-01 | Outpatient (CLI) | payer MEDICARE ==
--- NOTE | 2021-01-02 14:32 | MM ---
Reason for exam: screening (asymptomatic). Last mammogram was performed 1 year and 2 months ago. History: Patient is postmenopausal and has history of other cancer at age 46. Family history of breast cancer in maternal grandmother. Benign US breast aspiration ea add LT of the left breast, November 30, 2014. Benign US breast aspiration ea add LT of the left breast, November 30, 2014. Benign US breast aspiration single LT of the left breast, November 30, 2014. Benign US breast aspiration single RT of the right breast, November 30, 2014. Benign right mammotome panel of the right breast, May 29, 2013. Physical Findings: A clinical breast exam by your physician is recommended on an annual basis and results should be correlated with mammographic findings. MG 3D Screening Mammo W/Cad Bilateral CC and MLO view(s) were taken. Prior study comparison: October 26, 2019, bilateral MG 3d screening mammo w/cad. June 09, 2018, bilateral MG 3d screening mammo w/cad. November 06, 2016, bilateral MG screening mammo w CAD. The breast tissue is heterogeneously dense. This may lower the sensitivity of mammography. No significant changes when compared with prior studies. ASSESSMENT: Benign, BI-RAD 2 RECOMMENDATION: Routine screening mammogram of both breasts in 1 year.
== END | disposition home or self-care (01) ==
LOC: RADMAMWWP 10:46
PROVIDERS: ATTEND Family Medicine
DX: Z12.31 Encounter for screening mammogram for malignant neoplasm of breast (principal); Z80.3 Family history of malignant neoplasm of breast; Z78.0 Asymptomatic menopausal state
CPT/HCPCS: 77063; 77067

== ENCOUNTER → 2021-04-28 | Outpatient (CLI) | payer MEDICARE | END | disposition home or self-care (01) | LOC: LABWHC1 14:18 | PROVIDERS: ATTEND Nurse Practitioner | DX: R00.2 Palpitations (principal) | CPT/HCPCS: 36415; 84443 ==

== ENCOUNTER → 2021-06-05 | Outpatient (CLI) | payer MEDICARE, OTHER ==
--- NOTE | 2021-06-05 08:25 | CTL ---
EXAMINATION TYPE: CT Low Dose Lung DATE OF EXAM ORDERED: 06/05/2021 HISTORY: Long-term tobacco use. Lung cancer screening CT DLP: [address] CTDI: 2.33 mGy Automated exposure control for dose reduction was used. SCREENING VISIT: Baseline COMPARISON: None. TECHNIQUE: Low dose computed tomography scan was performed through the chest at 1 mm thick sections a nd reconstructed images in multiple planes at 1 mm and [address] DIAGNOSTIC QUALITY: Limited, but interpretable FINDINGS: LUNG NODULES: Present, detailed below: There is 2 to 3 mm left upper lobe nodule axial image 38. Occasional additional scattered micronodule . No significant greater than 5 mm pulmonary nodules. LUNGS: COPD: Severity: Mild Fibrosis: Severity: None Lymph nodes: None Other findings: None RIGHT PLEURAL SPACE: Effusion: None Calcification: None Thickening: None Pneumothorax: None LEFT PLEURAL SPACE: Effusion: None Calcification: None Thickening: None Pneumothorax: None HEART: Heart Size: Normal Coronary Calcification: Minimal Pericardial Effusion: None OTHER FINDINGS: Upper abdomen: Surgical changes from gastric bypass partially imaged. Cholecystectomy clips noted on localizer. Bony thorax: Slight scoliotic curvature Supraclavicular region: None Other: None IMPRESSION: No significant greater than [address] LUNG RAD AND CT CHEST RECOMMENDATION: Lung-Rad 2 Benign Appearance or Behavior: Continue annual sc reening with LDCT in 12 months. S Modifier (other clinically significant findings): None
== END | disposition home or self-care (01) ==
LOC: RADCTMAIN 07:05
PROVIDERS: ATTEND Family Medicine
DX: Z12.2 Encounter for screening for malignant neoplasm of respiratory organs (principal); Z87.891 Personal history of nicotine dependence
CPT/HCPCS: 71271

== ENCOUNTER → 2021-06-17 | Outpatient (CLI) | payer MEDICARE ==
--- NOTE | 2021-06-17 17:29 | P.SLEEP ---
History of Present Illness H&P Date: 06/17/21 This is a 57-year-old female patient who is coming in for another sleep evaluation. The patient is known to me. I treated her. The sleep center for issues related to chronic comorbid insomnia her last evaluation with me was back in 2018. At that time, the patient was having difficulties in maintaining sleep and I gave her a short course of Ambien. She was also on various psychotropic medication to treat her chronic anxiety/bipolar disorder/depression. Noted the patient was morbidly obese and she has undergone previous bariatric surgery. She has successfully lost weight and subsequently she did regain some back. Today, she is coming in having difficulties in maintaining sleep. Sleep is fragmented. She has snoring and she is not sure if she is quitting breathing. Her arms and legs are restless at night and she will occasionally sleep talks. She grinds her teeth and she wakes up tired and fatigued during the day. She has chronic anxiety and occasional panics. She is feeling excessively fatigued and sleepy during the day. She is going to bed around 8:30 PM and awaken of 5: 30 AM in the morning. It takes him more than 30 minutes to fall asleep and she is excessively somnolent and sleepy during the day with an [place] score of 20. She does take afternoon naps and she can take as many as couple of naps if she has a opportunity to do so. She sleeps on her side and she does watch television in her bedroom. She has been drinking several glasses of caffeinated beverages at least 3 of them on a daily basis. Her weight was lowered 180 back in 2018 and currently she is weighing about 223 pounds. Her sleep remains fragmented and she has several arousals in the middle of the night. For all this reasons, she came back to see me at sleep center. Review of Systems A 14 point review of system was done and the positive findings are almost above history of present illness. Past Medical History Past Medical History: Cancer, COPD, Diabetes Mellitus, GERD/Reflux, Hyperlipidemia, Osteoarthritis (OA), Skin Disorder Additional Past Medical History / Comment(s): migraines, chronic BACK PAIN. DDD, bulging disks, hx Skin CA. GETS NAUSEA WHEN EATING OFTEN, heart murmer, palpitations, hiatal hernia, constipation, History of Any Multi-Drug Resistant Organisms: None Reported Past Surgical History: Bariatric Surgery, Breast Surgery, Section, Cholecystectomy, Hernia Repair, Orthopedic Surgery, Uterine Ablation Additional Past Surgical History / Comment(s): RT Knee arthroscopy. KAILEY MULT T OES Surgery. Sinus Surgery. Gastric Bypass 2013. ka[facility] Breast biopsy. CERVICAL CONE PROC. PAIN PROC BACK, ,kailey eyelid procedure , incisional hernia repair, Past Anesthesia/Blood Transfusion Reactions: Previous Problems w/ Anesthesia, Motion Sickness Additional Past Anesthesia/Blood Transfusion Reaction / Comment(s): Woke up once during anesthesia. Mom has difficulty coming out of anesthesia and low b/p. Smoking Status: Current every day smoker - Past Family History Father History Unknown: Yes Family Medical History: Cancer Additional Family Medical History / Comment(s): skin cancer Mother Family Medical History: Deep Vein Thrombosis (DVT) Medications and Allergies Home Medications Medication Instructions Recorded Confirmed Type Aspirin 81 mg PO DAILY 03/29/14 07/26/20 History Cholecalciferol [Vitamin D3] 2,000 unit PO Q48H 12/17/15 07/26/20 History bisacodyL [Dulcolax] 5 mg PO DAILY PRN 12/17/15 07/26/20 History lamoTRIgine [LaMICtal] 200 mg PO HS 12/17/15 07/26/20 History Calcium Carbonate [Calcium] 600 mg PO DAILY 05/07/16 07/26/20 History Multivitamins, Thera [Multivitamin] 1 tab PO DAILY 05/07/16 07/26/20 History Atorvastatin [Lipitor] 10 mg PO DAILY 07/19/17 07/26/20 History Biotin 5 mg PO DAILY 07/19/17 07/26/20 History Ferrous Sulfate [Feosol] 325 mg PO DAILY 07/19/17 07/26/20 History Docusate [Colace] 100 mg PO DAILY PRN 04/27/18 07/26/20 History lamoTRIgine [LaMICtal] 100 mg PO QAM 03/13/19 07/26/20 History rOPINIRole HCL [Requip] 0.25 mg PO HS 03/13/19 07/26/20 History ARIPiprazole [Abilify] 20 mg PO HS 07/26/20 07/26/20 History Citalopram Hydrobromide [CeleXA] 40 mg PO DAILY 07/26/20 07/26/20 History hydrOXYzine pamoate [Vistaril] 25 mg PO TID PRN 07/26/20 07/26/20 History metFORMIN HCL [Glucophage] 500 mg PO BID 07/26/20 07/26/20 History traZODone HCL 50 - 100 mg PO HS PRN 07/26/20 07/26/20 History Allergies Allergy/AdvReac Type Severity Reaction Status Date / Time grass pollen-perennial rye, Allergy ITCHY,WATERY Verified 07/26/20 12:09 standar EYES AND [grass poll-perennial NOSE rye,std] rivaroxaban [From Xarelto] Allergy NEVER Verified 07/26/20 12:09 WANTS TO HAVE tape Allergy tears Uncoded 07/26/20 12:09 skin,rash, states "paper tape is ok" Physical Exam he patient's blood pressure is 107/70, pulse is 88Respiration is at 16 and the weight is 223 with a oxygenation saturation of 94% on room air oxygen. His 16.5 inches and the temperature is 96.9. Gen. appearance the patient is obese, comfortable, no acute distress The patient appeared well nourished and normally developed. Vital signs as documented. Head exam is unremarkable. No scleral icterus or corneal arcus noted. Neck is without jugular venous distension, thyromegaly, or carotid bruits. Carotid upstrokes are brisk bilaterally. Lungs are clear to auscultation and percussion. Cardiac exam reveals the PMI to be normally sized and situated. Rhythm is regular. First and second heart sounds normal. No murmurs, rubs or gallops. Abdominal exam reveals normal bowel sounds, no masses, no organomegaly and no aortic enlargement. Extremities are nonedematous and both femoral and pedal pulses are normal.Examination of the skin revealed no evidence of significant rashes, suspicious appearing nevi or other concerning lesions.Neurologically, the patient is awake and alert and the patient does not have any focal neurological deficit. Cranial nerves are essentially intact. Assessment and Plan Plan: 1 sleep fragmentation with excessive daytime sleepiness and an [place] score of 20,. There are some features to indicate obstructive sleep apnea and a screening polysomnogram will be completed 2 history of chronic comorbid insomnia 3 history of obesity with a previous gastric bypass surgery 4 chronic anxiety disorder/panic disorder 5 history of dissociative identity disorder 6 bipolar disorder 7 diabetes mellitus 8 hyperlipidemia 9 hypertension 10 chronic pain involving back and neck and knees and hips related to degenerative arthritis 11 COPD 12 glucoma 13 hiatal hernia 14 restlessness in her extremities 15 acid reflux Plan Issues related to the sleep hygiene measures were discussed with the patient Medications were reviewed Keep same psychotropic medications Encourage weight loss Screening polysomnogram Sleep Note - Sleep Note Sleep Note: Temperature: Pulse Rate: Respiratory Rate: Blood Pressure: SpO2: Height: Weight: BMI: Neck Circumference:
== END ==
LOC: SLEEP 14:27
PROVIDERS: ATTEND Internal Medicine Critical Care Medicine
DX: G47.33 Obstructive sleep apnea (adult) (pediatric) (principal); F41.0 Panic disorder [episodic paroxysmal anxiety]; F31.9 Bipolar disorder, unspecified; E11.9 Type 2 diabetes mellitus without complications; E78.5 Hyperlipidemia, unspecified; I10 Essential (primary) hypertension; M47.9 Spondylosis, unspecified; M16.0 Bilateral primary osteoarthritis of hip; M17.0 Bilateral primary osteoarthritis of knee; J44.9 Chronic obstructive pulmonary disease, unspecified; Z98.84 Bariatric surgery status; G89.29 Other chronic pain; H40.9 Unspecified glaucoma; K44.9 Diaphragmatic hernia without obstruction or gangrene; G25.81 Restless legs syndrome; K21.9 Gastro-esophageal reflux disease without esophagitis; Z86.39 Personal history of other endocrine, nutritional and metabolic disease; Z86.59 Personal history of other mental and behavioral disorders; Z79.84 Long term (current) use of oral hypoglycemic drugs; Z91.048 Other nonmedicinal substance allergy status; Z91.09 Other allergy status, other than to drugs and biological substances; F17.200 Nicotine dependence, unspecified, uncomplicated
CPT/HCPCS: 99211

== ENCOUNTER → 2021-10-09 | Outpatient (CLI) | payer MEDICARE ==
[2021-10-09 14:17] LABS: HCT 40.7 % (37.2-46.3); HGB 12.3 g/dL (12.0-15.0); MCH 23.9 pg (27.0-32.0); MCHC 30.2 g/dL (32.0-37.0); MCV 79.2 fL (80.0-97.0); Mean Platelet Volume 10.4 fL (9.5-12.2); NRBC Per 100 WBC 0 /100 WBCS (0.0-0.0); Platelet Count 450 X 10*3/uL (140-440); RBC 5.14 X 10*6/uL (4.10-5.20); RDW 15.9 % (11.5-14.5); WBC 10.02 X 10*3/uL (4.50-10.00)
[2021-10-09 14:32] LABS: ALT 11 U/L (8-44); AST 17 U/L (13-35); African American GFR (CKD) 82.8 (60.0-200.0); Albumin 4.8 g/dL (3.8-4.9); Alkaline Phosphatase 138 U/L (41-126); BUN/Creat Ratio 9.56 Ratio (12.00-20.00); Blood Urea Nitrogen 8.6 mg/dL (9.0-27.0); Carbon Dioxide 25.4 mmol/L (20.0-27.5); Chloride 103 mmol/L (96-109); Globulin 2.4 g/dL (1.6-3.3); Glucose 87 mg/dL (70-110); LDL Cholesterol,Calculated 90.3 mg/dL (0.0-131.0); Non-African American GFR(CKD) 71.5 (60.0-200.0); Potassium 4.8 mmol/L (3.5-5.5); Sodium 141 mmol/L (135-145); Total Protein 7.2 g/dL (6.2-8.2)
== END | disposition home or self-care (01) ==
LOC: LABWHC1 10:11
PROVIDERS: ATTEND Psychiatry & Neurology Psychiatry
DX: F31.60 Bipolar disorder, current episode mixed, unspecified (principal)
CPT/HCPCS: 36415; 80053; 80061; 83036; 84439; 84443; 85027

== ENCOUNTER 2022-03-03 08:06 | Day surgery (SDC) | payer MEDICARE ==
[2022-02-27 09:01] VITALS: BMI 30.8
[2022-03-03 08:58] VITALS: TEMP 97
[2022-03-03 09:00] LABS: Glucose,Whole Blood 97 mg/dL (70-110)
[2022-03-03] MEDS ORDERED: LIDOCAINE 2% INJ 20 MG/ML (2 ML VIAL) ONE (09:06)
[2022-03-03] MEDS ORDERED: PROPOFOL 10 MG/ML 20 ML VIAL IV ONE (09:06)
[2022-03-03] MEDS ORDERED: fentaNYL (PF) 50 MCG/ML 2 ML AMP ONE (09:06)
--- NOTE | 2022-03-03 09:30 | P.PCN ---
Date of Procedure: 03/03/22 Procedure(s) Performed: BRIEF HISTORY: Patient is a 56-year-old, pleasant, white female scheduled for an upper endoscopy as a part of evaluation of chronic persistent nausea for the last 6 months duration.. Patient has prior history of gastric bypass surgery. PROCEDURE PERFORMED: Esophagogastroduodenoscopy with biopsy. PREOPERATIVE DIAGNOSIS: Chronic persistent nausea of 6 months duration. IV sedation per anesthesia. PROCEDURE: After informed consent was obtained, the patient was brought into [facility] endoscopy unit. IV sedation was administered by Anesthesia under continuous monitoring. Initially the Olympus GIF-140 video endoscope was inserted into the mouth. Esophagus intubated without any difficulty. It was gradually advanced into the gastric pouch and gastric Thomas-en-Y anastomosis was identified that appeared normal. The scope was advanced into the afferent and efferent loops that appeared normal. Anastomosis appeared normal. Biopsies were done from the gastric pouch which also appeared normal. The GE junction was located at 39 cm from the incisors. The esophagus appeared normal. There were no erosions or ulcerations seen, biopsies were done from the distal esophagus and the patient tolerated the procedure well. IMPRESSION: 1. Evidence of gastric bypass surgery with Thomas-en-Y anastomosis. 2. Normal-appearing gastric pouch and no evidence of anastomotic ulcer. RECOMMENDATIONS: The findings of this examination were discussed with the patient as well as a family. She was advised to follow with the biopsy results. Continue current medications as well as antiemetics as needed..
[2022-03-03 09:36] VITALS: PULSE 78
[2022-03-03 09:49] VITALS: BP 110/73; RESP 16
== END 2022-03-03 10:19 | disposition home or self-care (01) ==
LOC: ORWHC2ENDO 08:06
PROVIDERS: ATTEND Internal Medicine Gastroenterology
DX: K21.00 Gastro-esophageal reflux disease with esophagitis, without bleeding (principal); I10 Essential (primary) hypertension; E78.5 Hyperlipidemia, unspecified; J44.9 Chronic obstructive pulmonary disease, unspecified; F17.210 Nicotine dependence, cigarettes, uncomplicated; E11.9 Type 2 diabetes mellitus without complications; M54.9 Dorsalgia, unspecified; Z98.84 Bariatric surgery status; Z79.82 Long term (current) use of aspirin; Z79.84 Long term (current) use of oral hypoglycemic drugs; Z79.899 Other long term (current) drug therapy; Z88.8 Allergy status to other drugs, medicaments and biological substances; Z91.040 Latex allergy status
CPT/HCPCS: 81025; 88305; 43239; J3010; J2704; J2001

== ENCOUNTER → 2022-03-09 | Outpatient (CLI) | payer MEDICARE ==
--- NOTE | 2022-03-09 10:20 | MM ---
Reason for Exam: Screening (asymptomatic). Last mammogram was performed 1 year(s) and 2 month(s) ago. Patient History: Menarche at age 12. First Full-Term at age 27. Postmenopausal. 11/30/2014, Benign Cyst Aspiration on the left side. 11/30/2014, Benign Cyst Aspiration on the left side. 11/30/2014, Benign Cyst Aspiration on the left side. 11/30/2014, Benign Cyst Aspiration on the right side. 05/29/2013, Benign Core Biopsy on the right side. Maternal grandmother had breast cancer. Risk Values: Ira 5 year model risk: 1.7%. NCI Lifetime model risk: 10.2%. Prior Study Comparison: 06/09/2018 Bilateral Screening Mammogram, [facility]. 10/26/2019 Bilateral Screening Mammogram, [facility]. 01/01/2021 Bilateral Screening Mammogram, [facility]. Tissue Density: The breast tissue is heterogeneously dense. This may lower the sensitivity of mammography. Findings: Analyzed By CAD. Biopsy clip in the right breast upper is redemonstrated. There are a few scattered and loosely grouped benign-appearing round calcifications throughout the bilateral breasts redemonstrated. Benign-appearing bilateral axillary lymph nodes are again seen. There is developing microlobulated oval 14 mm mass in the left breast middle to posterior depth right outer aspect near the dystrophic calcification that warrants further workup. Overall Assessment: Incomplete: need additional imaging evaluation, BI-RAD 0 Management: Diagnostic Breast Ultrasound of the left breast. Targeted ultrasound now. A clinical breast exam by your physician is recommended on an annual basis and results should be correlated with mammographic findings. Electronically signed and approved by: Shawn Ring M.D.
== END | disposition home or self-care (01) ==
LOC: RADMAMWWP 06:50
PROVIDERS: ATTEND Family Medicine
DX: Z12.31 Encounter for screening mammogram for malignant neoplasm of breast (principal); Z78.0 Asymptomatic menopausal state; Z80.3 Family history of malignant neoplasm of breast; Z98.890 Other specified postprocedural states
CPT/HCPCS: 77063; 77067

== ENCOUNTER → 2022-03-12 | Outpatient (CLI) | payer MEDICARE ==
--- NOTE | 2022-03-12 14:35 | USB ---
Patient History: Menarche at age 12. First Full-Term at age 27. Postmenopausal. 11/30/2014, Benign Cyst Aspiration on the left side. 11/30/2014, Benign Cyst Aspiration on the left side. 11/30/2014, Benign Cyst Aspiration on the left side. 11/30/2014, Benign Cyst Aspiration on the right side. 05/29/2013, Benign Core Biopsy on the right side. Maternal grandmother had breast cancer. Risk Values: Ira 5 year model risk: 1.7%. NCI Lifetime model risk: 10.2%. Technique: Method: Targeted. Prior Study Comparison: 10/26/2019 Bilateral Screening Mammogram, [facility]. 01/01/2021 Bilateral Screening Mammogram, [facility]. 03/09/2022 Bilateral MG 3D screening mammo w/cad, [facility]. Findings: The upper outer quadrant of the left breast, the axilla of the left breast and the retroareolar of the left breast were scanned. Targeted ultrasound left breast upper outer quadrant 12:00 to 3:00 including the subareolar region and axilla. At the 3:00 position, 6 cm from the nipple, there is either a cyst cluster or complex cyst measuring 1.4 x 1.0 x 0.4 cm. Likely mammographic correlate. Six-month follow-up mammogram recommended to reassess. No other solid or cystic lesion.. Overall Assessment: Probably benign, BI-RAD 3 Management: Diagnostic Mammogram of the left breast in 6 months. 1. Patient should continue monthly self breast exams. 2. A clinical breast exam by your physician is recommended on an annual basis. 3. This exam should not preclude additional follow-up of suspicious palpable abnormalities. Results were given to the patient verbally at the time of exam. Electronically signed and approved by: Aline Lozano M.D. Radiologist
== END | disposition home or self-care (01) ==
LOC: RADUSWWP 12:35
PROVIDERS: ATTEND Family Medicine
DX: R92.8 Other abnormal and inconclusive findings on diagnostic imaging of breast (principal); Z78.0 Asymptomatic menopausal state; Z80.3 Family history of malignant neoplasm of breast

== ENCOUNTER → 2022-09-02 | Outpatient (CLI) | payer MEDICARE ==
[2022-09-02 15:00] VITALS: BP 121/77; PULSE 80; TEMP 98.3
--- NOTE | 2022-09-02 15:34 | P.BASOAP ---
Subjective Progress Note Date: 09/02/22 She is on linzess. She was down to 163 pounds. Then she regained the weight. She smokes 1 pack per day. She needs upper scope. She needs a food log. She is looking into the panniculectomy. She needs. She was going to [place] in the winter. She has dermatologists has panniculits. Objective - Vital Signs Vital signs: Vital Signs Temp 98.3 F 09/02/22 14:48 Pulse 80 09/02/22 14:48 Resp BP 121/77 09/02/22 14:48 Pulse Ox FiO2 Intake & Output 09/01/22 09/02/22 09/02/22 18:59 06:59 18:59 Weight 88.451 kg Assessment/Plan Plan: Date: 09/02/22 Initial Weight: 109.996 kg Initial BMI: 37.4 Current Weight: 88.451 kg Current BMI: 30.0 Type of Surgery: Total Volume in Band: Previous Volume: Volume Removed: Volume Added: Band Size:
== END ==
LOC: BARWHC3 13:22
PROVIDERS: ATTEND Surgery Plastic and Reconstructive Surgery
DX: E66.01 Morbid (severe) obesity due to excess calories (principal); F17.210 Nicotine dependence, cigarettes, uncomplicated; Z91.048 Other nonmedicinal substance allergy status; Z68.30 Body mass index [BMI] 30.0-30.9, adult; Z88.8 Allergy status to other drugs, medicaments and biological substances
CPT/HCPCS: 99211

== ENCOUNTER → 2022-09-11 | Outpatient (CLI) | payer MEDICARE ==
[2022-09-11 12:54] LABS: INR 0.9 (<1.2); Partial Thromboplastin Time 24.8 sec (22.0-30.0); Prothrombin Time 9.8 sec (9.0-12.0)
[2022-09-11 15:39] LABS: Prealbumin 22.5 mg/dL (18.0-42.0)
[2022-09-11 15:51] LABS: HCT 37.7 % (37.2-46.3); HGB 11.9 d/dL (12.0-15.0); MCH 25.1 pg (27.0-32.0); MCHC 31.6 d/dL (32.0-37.0); MCV 79.5 FL (80.0-97.0); Mean Platelet Volume 9.5 FL (9.5-12.2); NRBC Per 100 WBC 0 X 10*3/uL (0.00-0.01); Platelet Count 435 X 10*3/uL (140-440); RBC 4.74 X 10*6/uL (4.10-5.20); RDW 18.3 % (11.5-14.5); WBC 9.28 X 10*3/uL (4.50-10.00)
[2022-09-11 16:00] LABS: % Iron Saturation 30.35 (12.00-45.00); BUN/Creat Ratio 9.33 Ratio (12.00-20.00); Blood Urea Nitrogen 8.4 mg/dL (9.0-27.0); Chloride 101 mmol/L (96-109); Chol/HDL Ratio 2.38 Ratio; Glucose 75 mg/dL (70-110); Iron 156 UG/DL (50-170); LDL Cholesterol,Calculated 67.6 mg/dL (0.0-131.0); Magnesium 2.2 mg/dL (1.5-2.4); Phosphorus 4.1 mg/dL (2.4-5.1); Potassium 5.1 mmol/L (3.5-5.5); Sodium 139 mmol/L (135-145); Total Iron Binding Capacity 514 UG/DL (228-460); VLDL Calculation 16.96 mg/dL (5.00-40.00)
[2022-09-11 16:01] LABS: ALT 16 U/L (8-44); AST 19 U/L (13-35); Albumin 4.5 d/dL (3.8-4.9); Albumin/Globulin Ratio 1.96 Ratio (1.60-3.17); Alkaline Phosphatase 115 U/L (41-126); Calcium 9.6 mg/dL (8.7-10.3); Carbon Dioxide 27.1 mmol/L (21.6-31.8); Globulin 2.3 d/dL (1.6-3.3); Total Bilirubin 0.2 mg/dL (0.3-1.2); Total Protein 6.8 d/dL (6.2-8.2)
== END | disposition home or self-care (01) ==
LOC: LABWHC1 10:10
PROVIDERS: ATTEND Surgery Plastic and Reconstructive Surgery
DX: I51.0 Cardiac septal defect, acquired (principal); D50.8 Other iron deficiency anemias; K91.2 Postsurgical malabsorption, not elsewhere classified; E44.0 Moderate protein-calorie malnutrition; E44.1 Mild protein-calorie malnutrition; E45 Retarded development following protein-calorie malnutrition; E55.9 Vitamin D deficiency, unspecified; K74.1 Hepatic sclerosis; N19 Unspecified kidney failure; T56.894A Toxic effect of other metals, undetermined, initial encounter; E89.1 Postprocedural hypoinsulinemia; R94.31 Abnormal electrocardiogram [ECG] [EKG]
CPT/HCPCS: 36415; 80053; 80061; 82306; 82525; 82607; 82728; 82746; 83036; 83540; 83550; 83735; 83970; 84100; 84134; 84255; 84425; 84443; 84590; 84630; 85027; 85610; 85730; 93005

== ENCOUNTER → 2022-09-14 | Outpatient (CLI) | payer MEDICARE ==
--- NOTE | 2022-09-14 09:30 | MM ---
Reason for Exam: Follow-up at short interval from prior study. Last screening mammogram was performed 6 month(s) ago. Patient History: Menarche at age 12. First Full-Term at age 27. Postmenopausal. 11/30/2014, Benign Cyst Aspiration on the left side. 11/30/2014, Benign Cyst Aspiration on the left side. 11/30/2014, Benign Cyst Aspiration on the left side. 11/30/2014, Benign Cyst Aspiration on the right side. 05/29/2013, Benign Core Biopsy on the right side. Maternal grandmother had breast cancer. Risk Values: Ira 5 year model risk: 1.7%. NCI Lifetime model risk: 10.2%. Prior Study Comparison: 10/26/2019 Bilateral Screening Mammogram, [facility]. 01/01/2021 Bilateral Screening Mammogram, [facility]. 03/09/2022 Bilateral MG 3D screening mammo w/cad, [facility]. Tissue Density: Left: The breast tissue is heterogeneously dense. This may lower the sensitivity of mammography. Findings: Analyzed By CAD. Biopsy clip within the right breast is redemonstrated. Benign-appearing calcifications within both breasts. Previously seen mass in the left breast that middle to posterior depth in the outer aspect near the dystrophic calcifications is not well appreciated on today's exam. No new suspicious mass within either breast. Overall Assessment: Benign, BI-RAD 2 Management: Screening Mammogram of both breasts in 6 months. A clinical breast exam by your physician is recommended on an annual basis and results should be correlated with mammographic findings. This exam should not preclude additional follow-up of suspicious palpable abnormalities. Results were given to the patient verbally at the time of exam. Note on Ira scores and lifetime risk: 1. A Ira score greater than 3% is considered moderate risk. If this is the case, consider specialist referral to assess eligibility for a risk reducing agent. If overall lifetime risk for the development of breast cancer is 20% or higher, the patient may qualify for future screening with alternating mammogram and breast MRI. Electronically signed and approved by: Eduardo Minaya D.O.
--- NOTE | 2022-09-14 13:47 | CTL ---
EXAMINATION TYPE: CT Low Dose Lung DATE OF EXAM ORDERED: 09/14/2022 HISTORY: Personal tobacco use. Lung cancer screening CT DLP: 80.[address] CTDI: 2.4 mGy Automated exposure control for dose reduction was used. SCREENING VISIT: Subsequent COMPARISON: 06/05/2021 TECHNIQUE: Low dose computed tomography scan was performed through the chest at 1 mm thick sections a nd reconstructed images in the coronal plane at [address] DIAGNOSTIC QUALITY: Satisfactory FINDINGS: LUNG NODULES: None. LUNGS: COPD: Severity: None Fibrosis: Severity: None Lymph nodes: Small lymph nodes are scattered within the mediastinum. No enlarged lymphadenopathy is e vident. Other findings: None RIGHT PLEURAL SPACE: Effusion: None Calcification: None Thickening: None Pneumothorax: None LEFT PLEURAL SPACE: Effusion: None Calcification: None Thickening: None Pneumothorax: None HEART: Heart Size: Normal Coronary calcification: Normal Pericardial effusion: Normal OTHER FINDINGS: Upper abdomen: Postsurgical changes are within the stomach. Bony thorax: Normal Supraclavicular region: Normal Other: Ascending thoracic aorta at the level the main pulmonary artery measures 3.5 cm. The main pul monary artery at the bifurcation measures 2.6 cm. IMPRESSION: 1. No suspicious primary or metastatic changes. FOLLOW UP CT CHEST RECOMMENDATION: Low dose CT chest one year CT LUNG RAD: Lung-Rad 2 Benign Appearance or Behavior
== END | disposition home or self-care (01) ==
LOC: RADMAMWWP 08:56
PROVIDERS: ATTEND Family Medicine
DX: R92.8 Other abnormal and inconclusive findings on diagnostic imaging of breast (principal); Z12.2 Encounter for screening for malignant neoplasm of respiratory organs; F17.210 Nicotine dependence, cigarettes, uncomplicated; Z78.0 Asymptomatic menopausal state
CPT/HCPCS: 71271; 77061; 77065

== ENCOUNTER → 2022-10-19 | Day surgery (SDC) | payer MEDICARE, OTHER ==
[2022-10-12 14:24] VITALS: BMI 30.8
[~2022-10-19] MED LIST changes: +LACTATED RINGERS 1,000 ML IV ONE; +LIDOCAINE 1% (10MG/ML) FOR IV START INTRADERMA PRN; +LIDOCAINE 2% INJ 20 MG/ML (2 ML VIAL) ONE; +PROPOFOL 10 MG/ML 20 ML VIAL IV ONE; +fentaNYL (PF) 50 MCG/ML 2 ML AMP ONE
[2022-10-19 07:15] VITALS: TEMP 97.6
[2022-10-19 07:27] LABS: Glucose,Whole Blood 98 mg/dL (70-110)
--- NOTE | 2022-10-19 07:39 | P.GSHP ---
History of Present Illness H&P Date: 10/19/22 CHIEF COMPLAINT: GERD and colon screen HISTORY OF PRESENT ILLNESS: The patient is a 57-year-old female who presents with gastroesophageal reflux disease and need for colon screen. Upper and lower endoscopy were offered for further evaluation and management. PAST MEDICAL HISTORY: Please see list. PAST SURGICAL HISTORY: Please see list. MEDICATIONS: Please see list. ALLERGIES: Please see list. SOCIAL HISTORY: No illicit drug use FAMILY HISTORY: No reports of Crohn disease or ulcerative colitis. REVIEW OF ORGAN SYSTEMS: CONSTITUTIONAL: No reports of fevers or chills. GI: Denies any blood in stools or constipation. PHYSICAL EXAM: VITAL SIGNS: Stable GENERAL: Well-developed pleasant in no acute distress. HEENT: No scleral icterus. Extraocular movements grossly intact. Moist buccal mucosa. NECK: Supple without lymphadenopathy. CHEST: Unlabored respirations. Equal bilateral excursions. CARDIOVASCULAR: Regular rate and rhythm. Distal 2+ pulses. ABDOMEN: Soft, nondistended. MUSCULOSKELETAL: No clubbing, cyanosis, or edema. ASSESSMENT: 1. Gastroesophageal reflux disease 2. Colon screen. PLAN: 1. Recommend proceeding with an upper and lower endoscopy Past Medical History Past Medical History: Atrial Flutter, Cancer, COPD, Diabetes Mellitus, GERD/Reflux, Hyperlipidemia, Osteoarthritis (OA), Skin Disorder Additional Past Medical History / Comment(s): migraines, chronic BACK PAIN. DDD, bulging disks, hx Skin CA. GETS NAUSEA WHEN EATING OFTEN, heart murmer, palpitations, hiatal hernia, constipation, History of Any Multi-Drug Resistant Organisms: None Reported Past Surgical History: Bariatric Surgery, Breast Surgery, Section, Cholecystectomy, Hernia Repair, Orthopedic Surgery, Uterine Ablation Additional Past Surgical History / Comment(s): RT Knee arthroscopy. KAILEY MULT TOES Surgery. Sinus Surgery. Gastric Bypass 2013. kailey Breast biopsy. CERVICAL CONE PROC. PAIN PROC BACK, ,kailey eyelid procedure , incisional hernia repair, Past Anesthesia/Blood Transfusion Reactions: Previous Problems w/ Anesthesia, Motion Sickness Additional Past Anesthesia/Blood Transfusion Reaction / Comment(s): Woke up once during anesthesia. Mom has difficulty coming out of anesthesia and low b/p. Smoking Status: Current every day smoker - Past Family History Father History Unknown: Yes Family Medical History: Cancer Additional Family Medical History / Comment(s): skin cancer Mother Family Medical History: Deep Vein Thrombosis (DVT) Medications and Allergies Home Medications Medication Instructions Recorded Confirmed Type Aspirin 81 mg PO DAILY 03/29/14 10/19/22 History lamoTRIgine [LaMICtal] 200 mg PO HS 12/17/15 10/19/22 History Atorvastatin [Lipitor] 10 mg PO DAILY 07/19/17 10/19/22 History lamoTRIgine [LaMICtal] 100 mg PO QAM 03/13/19 10/19/22 History rOPINIRole HCL [Requip] 0.25 mg PO HS 03/13/19 10/19/22 History ARIPiprazole [Abilify] 10 mg PO HS 07/26/20 10/19/22 History Citalopram Hydrobromide [CeleXA] 40 mg PO DAILY 07/26/20 10/19/22 History hydrOXYzine pamoate [Vistaril] 25 mg PO TID 07/26/20 10/19/22 History traZODone HCL 100 mg PO HS PRN 07/26/20 10/19/22 History Multivitamin [Multivitamins Adult 1 tab PO DAILY 02/27/22 10/19/22 History Gummies] Biotin [Biotin Disolve] 5,000 mcg PO DAILY 09/02/22 10/19/22 History L.acidoph,Paracasei, B.lactis 1 each PO DAILY 09/02/22 10/19/22 History [Probiotic] Linaclotide [Linzess] 145 mcg PO DAILY 09/02/22 10/19/22 History Losartan [Cozaar] 25 mg PO DAILY 09/02/22 10/19/22 History Metoprolol Tartrate 12.5 mg PO DAILY 09/02/22 10/19/22 History Dulaglutide [Trulicity] 3 mg SQ WEEKLY 10/12/22 10/19/22 History Allergies Allergy/AdvReac Type Severity Reaction Status Date / Time grass pollen-perennial rye, Allergy ITCHY,WATERY Verified 10/19/22 07:11 standar EYES AND [grass poll-perennial NOSE rye,std] rivaroxaban [From Xarelto] Allergy NEVER Verified 10/19/22 07:11 WANTS TO HAVE tape Allergy tears Uncoded 03/03/22 08:40 skin,rash, states "paper tape is ok" Surgical - Exam Vital Signs Temp Pulse Resp BP Pulse Ox 97.6 F 74 18 167/71 96 10/19/22 07:14 10/19/22 07:14 10/19/22 07:14 10/19/22 07:14 10/19/22 07:14
--- NOTE | 2022-10-19 07:46 | P.PCN ---
Date of Procedure: 10/19/22 Description of Procedure: PREOPERATIVE DIAGNOSES: 1. Epigastric abdominal pain. 2. Nausea and vomiting. 3. History of gastric bypass. 4. History of gastric ulcers. 5. Tobacco abuse disorder 6. Gastroesophageal reflux disease POSTOPERATIVE DIAGNOSES: 1. Epigastric abdominal pain. 2. Nausea and vomiting. 3. History of gastric bypass. 4. History of gastric ulcers. PROCEDURE PERFORMED: Esophagogastrojejunoscopy. SURGEON: Agatha Jaeger MD ANESTHESIA: MAC. INDICATIONS: The patient is a 57-year-old female with gastroesophageal reflux disease, Thomas-en-Y gastric bypass including nausea and vomiting, epigastric abdominal pain. She has developed had intermittent nausea and vomiting, particularly of the epigastric abdominal pain. With his history of Thomas-en-Y gastric bypass, upper endoscopy was offered for further evaluation and management. DESCRIPTION: Patient was brought to the endoscopy suite and laid in the left lateral decubitus position. After adequate IV sedation, a bite block was placed. An Olympus gastroscope was passed along the posterior oropharynx down to the distal esophagus where the squamocolumnar junction was found at approximately 37 cm from the incisors. His anastomosis was found at 45 cm, consistent with approximately 2 cm gastric pouch. The scope was advanced 60 cm from the incisors. No evidence of foreign body was found. No evidence of active gastrojejunal ulcerations were encountered. The GI tract was desufflated. The patient tolerated the procedure well. FINDINGS: 1. No acute gastrojejunal ulceration. 2. No foreign body found along the anastomosis. PLAN: 1. Recommend upper endoscopy as needed. 2. May benefit from additional studies with history of epigastric abdominal pain such as upper GI barium study.
--- NOTE | 2022-10-19 08:06 | P.PCN ---
Date of Procedure: 10/19/22 Description of Procedure: PREOPERATIVE DIAGNOSIS: Colonoscopy screening. POSTOPERATIVE DIAGNOSIS: Colonoscopy screening. Diverticulosis, scattered. OPERATION: Colonoscopy to the ascending colon SURGEON: Agatha Jaeger MD. ANESTHESIA: MAC. INDICATIONS: The patient is a 57-year-old female who presents for colonoscopy screening. Last colonoscopy over 5 years ago. Benefits and risks were described and informed consent was obtained. DESCRIPTION OF PROCEDURE: The patient had undergone Sutab prep. The patient had been brought into the operating room and laid in the left lateral decubitus position. After adequate intravenous sedation, the rectum was examined with 2% lidocaine jelly. No external hemorrhoids were encountered. The rectal tone was within normal limits. No lesions were palpated in the rectal vault. An Olympus colonoscope was advanced through tortuous sigmoid colon. Abdominal pressure was applied. Scope terminated to the ascending colon without visualization of the ileocecal valve or base of cecum. The prep was excellent. Scattered diverticulosis was encountered. No colonic polyps were found. No evidence of focal colitis was found. Retroflexion of the scope demonstrated grade 1 internal hemorrhoids without active bleeding or inflammation. The colon was desufflated. The patient had tolerated the procedure well. Withdrawal time was over 6 minutes. FINDINGS: Aronchick preparation quality scale 1(1-5) Internal hemorrhoids, grade 1 Scope terminated to ascending colon without visualization of ileocecal valve. No external prolapsed hemorrhoids. No arteriovenous malformations. No adenomatous polyps. No focal colitis. RECOMMENDATIONS: Recommend barium enema for assessment of cecal volvulus Repeat colonoscopy in 5 years pending barium enema result Plan - Discharge Summary Discharge Rx Participant: No New Discharge Prescriptions: No Action Aspirin 81 mg PO DAILY lamoTRIgine [LaMICtal] 200 mg PO HS Atorvastatin [Lipitor] 10 mg PO DAILY lamoTRIgine [LaMICtal] 100 mg PO QAM rOPINIRole HCL [Requip] 0.25 mg PO HS hydrOXYzine pamoate [Vistaril] 25 mg PO TID traZODone HCL 100 mg PO HS PRN PRN Reason: sleep Linaclotide [Linzess] 145 mcg PO DAILY Losartan [Cozaar] 25 mg PO DAILY Biotin [Biotin Disolve] 5,000 mcg PO DAILY L.acidoph,Paracasei, B.lactis [Probiotic] 1 each PO DAILY Dulaglutide [Trulicity] 3 mg SQ WEEKLY ARIPiprazole [Abilify] 10 mg PO HS Citalopram Hydrobromide [CeleXA] 40 mg PO DAILY Multivitamin [Multivitamins Adult Gummies] 1 tab PO DAILY Metoprolol Tartrate 12.5 mg PO DAILY Discharge Medication List Aspirin 81 mg PO DAILY 03/29/14 [History] lamoTRIgine [LaMICtal] 200 mg PO HS 12/17/15 [History] Atorvastatin [Lipitor] 10 mg PO DAILY 07/19/17 [History] lamoTRIgine [LaMICtal] 100 mg PO QAM 03/13/19 [History] rOPINIRole HCL [Requip] 0.25 mg PO HS 03/13/19 [History] ARIPiprazole [Abilify] 10 mg PO HS 07/26/20 [History] Citalopram Hydrobromide [CeleXA] 40 mg PO DAILY 07/26/20 [History] hydrOXYzine pamoate [Vistaril] 25 mg PO TID 07/26/20 [History] traZODone HCL 100 mg PO HS PRN 07/26/20 [History] Multivitamin [Multivitamins Adult Gummies] 1 tab PO DAILY 02/27/22 [History] Biotin [Biotin Disolve] 5,000 mcg PO DAILY 09/02/22 [History] L.acidoph,Paracasei, B.lactis [Probiotic] 1 each PO DAILY 09/02/22 [History] Linaclotide [Linzess] 145 mcg PO DAILY 09/02/22 [History] Losartan [Cozaar] 25 mg PO DAILY 09/02/22 [History] Metoprolol Tartrate 12.5 mg PO DAILY 09/02/22 [History] Dulaglutide [Trulicity] 3 mg SQ WEEKLY 10/12/22 [History]
[2022-10-19 08:12] VITALS: RESP 16
[2022-10-19 09:30] VITALS: BP 127/79; PULSE 66
--- NOTE | 2022-10-19 18:53 | XR ---
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 PRELIM FOR BE #1 and #2. Findings: Abdominal radiographs were taken at 2 different time points. There is persistent prominent air is sca ttered throughout the colon. Prior mesh repair along the left mid abdomen. Staple line near the left mid abdomen compatible with prior bowel surgery. No obvious volvulus morphology to the air-filled colon. Impression: Sequential abdominal radiographs showing persistent excessive colonic air. Patient will have to be br ought back tomorrow for barium enema exam.
== END | disposition home or self-care (01) ==
LOC: ORWHC2ENDO 06:39
PROVIDERS: ATTEND Surgery Plastic and Reconstructive Surgery
DX: K21.00 Gastro-esophageal reflux disease with esophagitis, without bleeding (principal); F17.200 Nicotine dependence, unspecified, uncomplicated; Z12.11 Encounter for screening for malignant neoplasm of colon; Z98.84 Bariatric surgery status; Z87.11 Personal history of peptic ulcer disease; Z79.84 Long term (current) use of oral hypoglycemic drugs; Z79.83 Long term (current) use of bisphosphonates; Z79.899 Other long term (current) drug therapy; Z79.811 Long term (current) use of aromatase inhibitors; Z79.01 Long term (current) use of anticoagulants; Z79.02 Long term (current) use of antithrombotics/antiplatelets; Z79.82 Long term (current) use of aspirin
CPT/HCPCS: 45378; 74018; 43235; J3010; J2704; J2001; G0121

== ENCOUNTER → 2022-11-11 | Outpatient (CLI) | payer MEDICARE, OTHER ==
[2022-11-11 15:50] VITALS: BP 113/75; PULSE 80; TEMP 98.4; BMI 28.8
--- NOTE | 2022-11-11 16:32 | P.BASOAP ---
Subjective Progress Note Date: 11/11/22 She is still smoking. Weight she wants is 160 pounds. Smoking is till present. She is still pending to quit. She take linzess for improved prep. She wants the pill prep. Objective - Vital Signs Vital signs: Vital Signs Temp 98.4 F 11/11/22 15:46 Pulse 80 11/11/22 15:46 Resp BP 113/75 11/11/22 15:46 Pulse Ox FiO2 Intake & Output 11/10/22 11/11/22 11/11/22 18:59 06:59 18:59 Weight 84.822 kg Assessment/Plan Plan: Date: 11/11/22 Initial Weight: 109.996 kg Initial BMI: 37.4 Current Weight: 84.822 kg Current BMI: 28.8 Type of Surgery: Total Volume in Band: Previous Volume: Volume Removed: Volume Added: Band Size:
== END ==
LOC: BARWHC3 14:59
PROVIDERS: ATTEND Surgery Plastic and Reconstructive Surgery
DX: Z53.9 Procedure and treatment not carried out, unspecified reason (principal)
CPT/HCPCS: 99211

== ENCOUNTER → 2023-01-13 | Outpatient (CLI) | payer MEDICARE, OTHER ==
[2023-01-13 15:33] VITALS: BP 114/73; PULSE 87; TEMP 98; BMI 28.3
--- NOTE | 2023-01-13 15:53 | P.BASOAP ---
Subjective Progress Note Date: 01/13/23 Wants colectomy for diverticulitis and recurrent abdominal. She needs urine nicotine. Bring in the day before for colon tattooiing. Tent Mar 05. Objective - Vital Signs Vital signs: Vital Signs Temp 98 F 01/13/23 15:12 Pulse 87 01/13/23 15:12 Resp BP 114/73 01/13/23 15:12 Pulse Ox FiO2 Intake & Output 01/12/23 01/13/23 01/13/23 18:59 06:59 18:59 Weight 83.461 kg Assessment/Plan Plan: Date: 01/13/23 Initial Weight: 109.996 kg Initial BMI: 37.4 Current Weight: 83.461 kg Current BMI: 28.3 Type of Surgery: Total Volume in Band: Previous Volume: Volume Removed: Volume Added: Band Size:
== END ==
LOC: BARWHC3 14:27
PROVIDERS: ATTEND Surgery Plastic and Reconstructive Surgery
DX: Z53.9 Procedure and treatment not carried out, unspecified reason (principal)
CPT/HCPCS: 99211

== ENCOUNTER → 2023-06-10 | Outpatient (CLI) | payer MEDICARE, OTHER ==
--- NOTE | 2023-06-11 13:20 | MM ---
Reason for Exam: Screening (asymptomatic). Last mammogram was performed 1 year(s) and 3 month(s) ago. Patient History: Menarche at age 12. First Full-Term at age 27. Postmenopausal. 11/30/2014, Benign Cyst Aspiration on the left side. 11/30/2014, Benign Cyst Aspiration on the left side. 11/30/2014, Benign Cyst Aspiration on the left side. 11/30/2014, Benign Cyst Aspiration on the right side. 05/29/2013, Benign Core Biopsy on the right side. Maternal grandmother had breast cancer. Risk Values: Ira 5 year model risk: 1.8%. NCI Lifetime model risk: 10.0%. Prior Study Comparison: 01/01/2021 Bilateral Screening Mammogram, [facility]. 03/09/2022 Bilateral MG 3D screening mammo w/cad, [facility]. 09/14/2022 Left MG 3D diag mammo w/cad , [facility]. Tissue Density: The breasts are heterogeneously dense, which may obscure small masses. Findings: Analyzed By CAD. Right breast: There is no suspicious group of microcalcifications or new suspicious mass. Left breast: There is no suspicious group of microcalcifications or new suspicious mass. There is no suspicious group of microcalcifications or new suspicious mass. Overall Assessment: Negative, BI-RAD 1 Management: Screening Mammogram of both breasts in [address] [facility] will attempt to contact patient to return for supplemental views and ultrasound if indicated. Patient should continue monthly self-breast exams. A clinical breast exam by your physician is recommended on an annual basis. This exam should not preclude additional follow-up of suspicious palpable abnormalities. Note on Ira scores and lifetime risk: 1. A Ira score greater than 3% is considered moderate risk. If this is the case, consider specialist referral to assess eligibility for a risk reducing agent. 2. If overall lifetime risk for the development of breast cancer is 20% or higher, the patient may qualify for future screening with alternating mammogram and breast MRI. Electronically signed and approved by: Luis David DO
== END | disposition home or self-care (01) ==
LOC: RADMAMWWP 14:08
PROVIDERS: ATTEND Family Medicine
DX: Z12.31 Encounter for screening mammogram for malignant neoplasm of breast (principal); Z80.3 Family history of malignant neoplasm of breast; Z78.0 Asymptomatic menopausal state
CPT/HCPCS: 77063; 77067

== ENCOUNTER 2023-06-19 10:15 | Emergency (ER) | payer MEDICARE, OTHER ==
--- NOTE | 2023-06-19 10:34 | ED ---
General Adult HPI - General Chief complaint: Arrhythmia/Palpitations Stated complaint: Elevated heart rate Time Seen by Provider: 06/19/23 10:21 Source: patient Mode of arrival: ambulatory Limitations: no limitations - History of Present Illness Initial comments: Dictation was produced using [employer] dictation software. please excuse any grammatical, word or spelling errors. Chief Complaint: 58-year-old female presents to the emergency department palpi tations and chest pain History of Present Illness: Patient is a 58-year-old female presents to the emergency department chest pain and palpitations for the last 2 to 3 days. Patient states that symptoms began abruptly. She has a history of anxiety. Patient states that the pain is like a twisting sensation in her substernal chest. Nonradiating. She does report shortness of breath. Denies any fever, chills or night sweats. Patient does use tobacco. She has history of diabetes hypertension high cholesterol. The ROS documented in this emergency department record has been reviewed and co nfirmed by me. Those systems with pertinent positive or negative responses have been documented in the HPI. All other systems are other negative and/or noncontributory. - Related Data Home Medications Medication Instructions Recorded Confirmed lamoTRIgine [LaMICtal] 200 mg PO HS 12/17/15 01/13/23 Atorvastatin [Lipitor] 10 mg PO DAILY 07/19/17 01/13/23 lamoTRIgine [LaMICtal] 100 mg PO QAM 03/13/19 01/13/23 rOPINIRole HCL [Requip] 0.25 mg PO HS PRN 03/13/19 01/13/23 ARIPiprazole [Abilify] 10 mg PO HS 07/26/20 01/13/23 Citalopram Hydrobromide [CeleXA] 40 mg PO DAILY 07/26/20 01/13/23 hydrOXYzine pamoate [Vistaril] 25 mg PO QID 07/26/20 01/13/23 traZODone HCL 100 mg PO HS PRN 07/26/20 01/13/23 Multivitamin [Multivitamins Adult 1 tab PO DAILY 02/27/22 01/13/23 Gummies] Biotin [Biotin Disolve] 5,000 mcg PO DAILY 09/02/22 01/13/23 L.acidoph,Paracasei, B.lactis 1 each PO DAILY 09/02/22 01/13/23 [Probiotic] Linaclotide [Linzess] 145 mcg PO DAILY 09/02/22 01/13/23 Losartan [Cozaar] 25 mg PO DAILY 09/02/22 01/13/23 Metoprolol Tartrate 12.5 mg PO DAILY 09/02/22 01/13/23 Dulaglutide [Trulicity] 3 mg SQ WEEKLY 10/12/22 01/13/23 Omeprazole 20 mg PO DAILY PRN 01/13/23 01/13/23 Allergies Allergy/AdvReac Type Severity Reaction Status Date / Time grass pollen-perennial rye, Allergy ITCHY,WATERY Verified 06/19/23 10:20 standar EYES AND [grass poll-perennial NOSE rye,std] rivaroxaban [From Xarelto] Allergy NEVER Verified 06/19/23 10:20 WANTS TO HAVE tape Allergy tears Uncoded 06/19/23 10:20 skin,rash, states "paper tape is ok" Review of Systems ROS Statement: Those systems with pertinent positive or pertinent negative responses have been documented in the HPI. ROS Other: All systems not noted in ROS Statement are negative. Past Medical History Past Medical History: Atrial Flutter, Cancer, COPD, Diabetes Mellitus, GERD/Reflux, Hyperlipidemia, Osteoarthritis (OA), Skin Disorder Additional Past Medical History / Comment(s): migraines, chronic BACK PAIN. DDD, bulging disks, hx Skin CA. GETS NAUSEA WHEN EATING OFTEN, heart murmer, palpitations, hiatal hernia, constipation, History of Any Multi-Drug Resistant Organisms: None Reported Past Surgical History: Bariatric Surgery, Breast Surgery, Section, Cholecystectomy, Hernia Repair, Orthopedic Surgery, Uterine Ablation Additional Past Surgical History / Comment(s): RT Knee arthroscopy. KAILEY MULT TOES Surgery. Sinus Surgery. Gastric Bypass 2013. kailey Breast biopsy. CERVICAL CONE PROC. PAIN PROC BACK, ,kailey eyelid procedure , incisional hernia repair, Past Anesthesia/Blood Transfusion Reactions: Previous Problems w/ Anesthesia, Motion Sickness Additional Past Anesthesia/Blood Transfusion Reaction / Comment(s): Woke up once during anesthesia. Mom has difficulty coming out of anesthesia and low b/p. Past Psychological History: Anxiety, Bipolar, Depression, Panic Disorder Smoking Status: Current every day smoker Past Alcohol Use History: Occasional Past Drug Use History: None Reported - Past Family History Father History Unknown: Yes Family Medical History: Cancer Additional Family Medical History / Comment(s): skin cancer Mother Family Medical History: Deep Vein Thrombosis (DVT) General Exam - General Exam Comments Initial Comments: PHYSICAL EXAM: General Impression: Alert and oriented x3, not in acute distress HEENT: Normocephalic atraumatic, extra-ocular movements intact, pupils equal and reactive to light bilaterally, mucous membranes moist. Cardiovascular: Heart regular rate and rhythm Chest: Able to complete full sentences, no retractions, no tachypnea Abdomen: abdomen soft, non-tender, non-distended, no organomegaly Musculoskeletal: Pulses present and equal in all extremities, no peripheral edema Motor: no focal deficits noted Neurological: CN II-XII grossly intact, no focal motor or sensory deficits noted Skin: Intact with no visualized rashes Psych: Normal affect and mood Limitations: no limitations Course Vital Signs 06/19/23 10:17 Temperature 97.9 F Pulse Rate 83 Respiratory 20 Rate Blood Pressure 125/79 O2 Sat by Pulse 98 Oximetry EKG Findings - EKG Comments: EKG Findings:: My EKG interpretation: Ventricular rate 74, sinus rhythm, CT interval 188, QRS 80, QTc 391. No CT prolongation, no QTC prolongation, no ST or T-wave changes noted. Overall, this EKG is unremarkable Medical Decision Making - Medical Decision Making Was pt. sent in by a medical professional or institution (Dr. PA, [facility], urgent care, hospital, or custodial...) When possible be specific @ -No Did you speak to anyone other than the patient for history (EMS, parent, family, police, friend...)? What history was obtained from this source @ -No Did you review nursing and triage notes (agree or disagree)? Why? @ -I reviewed and agree with nursing and triage notes Were old charts reviewed (outside hosp., previous admission, EMS record, old EKG, old radiological studies, urgent care reports/EKG's, custodial records)? Report findings @ -No old charts were reviewed Differential Diagnosis (chest pain, altered mental status, abdominal pain women, abdominal pain men, vaginal bleeding, musculoskeletal, weakness, fever, dyspnea, syncope, headache, dizziness, GI bleed, back pain, seizure, CVA, palpatations, mental health)? @ -Differential Chest Pain: Stable Angina, Unstable Angina, STEMI, NSTEMI Aortic Dissection, Pneumothorax, Musculoskeletal, Esophageal Spasm GERD, Cholecystitis, Pancreatitis, Zoster, this is not meant to be an all-inclusive list. EKG interpreted by me (3pts min.). @ -See above X-rays interpreted by me (1pt min.). @ -Two-view chest x-ray is nonacute CT interpreted by me (1pt min.). @ -None done U/S interpreted by me (1pt. min.). @ -None done What testing was considered but not performed or refused? (CT, X-rays, U/S, labs)? Why? @ -None What meds were considered but not given or refused? Why? @ -None Did you discuss the management of the patient with other professionals (professionals i.e. , PA, [facility], lab, RT, psych nurse, social service manager, social sciences chair, teacher, command center officer, housing case manager)? Give summary @ -No Was smoking cessation discussed for >3mins.? @ -No Was critical care preformed (if so, how long)? @ -No Were there social determinants of health that impacted care today? How? (Ho melessness, low income, unemployed, alcoholism, drug addiction, transportation, low edu. Level, literacy, decrease access to med. care, shelter, rehab)? @ -No Was there de-escalation of care discussed even if they declined (Discuss DNR or withdrawal of care, Hospice)? DNR status @ -No What co-morbidities impacted this encounter? (DM, HTN, Smoking, COPD, CAD, Cancer, CVA, ARF, Chemo, Hep., AIDS, mental health diagnosis, sleep apnea, morbid obesity)? @ -None Was patient admitted / discharged? Hospital course, mention meds given and route, prescriptions, significant lab abnormalities, going to OR and other pertinent info. @ -58-year-old female presents to the emergency department with atypical chest pain typical features. She thinks that this might be her anxiety. Vital signs are stable. EKG is unremarkable. Laboratory evaluation is negative. Patient observed in the emergency department for approximately 2 hours and 8 minutes. Reevaluated at bedside at 12:24 PM. She states that she does not have any symptoms at the bedside. Disposition options were discussed. It was advised th at she at least get a second troponin. She thinks that this is anxiety and wants to be discharged. She understands that her workup is not fully complete that she may be having a heart attack that is not apparent on EKG and blood work. She understands the risk. She is satisfied with the disposition. She understands she should return to the emergency department with any worsening symptoms. Undiagnosed new problem with uncertain prognosis? @ -No Drug Therapy requiring intensive monitoring for toxicity (Heparin, Nitro, Insulin, Cardizem)? @ -No Were any procedures done? @ -No Diagnosis/symptom? Acute, or Chronic, or Acute on Chronic? Uncomplicated (without systemic symptoms) or Complicated (systemic symptoms)? @ -Chest pain Side effects of treatment? @ -No Exacerbation, Progression, or Severe Exacerbation? @ -No Poses a threat to life or bodily function? How? (Chest pain, USA, MA, pneumonia, PE, COPD, DKA, ARF, appy, cholecystitis, CVA, Diverticulitis, Homicidal, Suicidal, threat to staff... and all critical care pts) @ -yes - Lab Data Result diagrams: 06/19/23 10:58 06/19/23 10:58 Lab Results 06/19/23 06/19/23 06/19/23 Range/Units 10:58 10:58 10:58 WBC 9.1 (3.8-10.6) k/uL RBC 4.78 (3.80-5.40) m/uL Hgb 12.4 (11.4-16.0) gm/dL Hct 39.1 (34.0-46.0) % MCV 81.7 (80.0-100.0) fL MCH 25.9 (25.0-35.0) pg MCHC 31.7 (31.0-37.0) g/dL RDW 14.0 (11.5-15.5) % Plt Count 398 (150-450) k/uL MPV 7.8 Neutrophils % 59 % Lymphocytes % 29 % Monocytes % 6 % Eosinophils % 4 % Basophils % 1 % Neutrophils # 5.4 (1.3-7.7) k/uL Lymphocytes # 2.7 (1.0-4.8) k/uL Monocytes # 0.5 (0-1.0) k/uL Eosinophils # 0.3 (0-0.7) k/uL Basophils # 0.1 (0-0.2) k/uL PT 10.3 (10.0-12.5) sec INR 0.9 (<1.2) APTT 25.3 (22.0-30.0) sec Sodium 139 (137-145) mmol/L Potassium 4.0 (3.5-5.1) mmol/L Chloride 108 H (98-107) mmol/L Carbon Dioxide 26 (22-30) mmol/L Anion Gap 5 mmol/L BUN 10 (7-17) mg/dL Creatinine 0.73 (0.52-1.04) mg/dL Est GFR (CKD-EPI)AfAm >90 (>60 ml/min/1.73 sqM) Est GFR (CKD-EPI)NonAf >90 (>60 ml/min/1.73 sqM) Glucose 99 (74-99) mg/dL Calcium 9.5 (8.4-10.2) mg/dL Magnesium 2.1 (1.6-2.3) mg/dL Total Bilirubin 0.3 (0.2-1.3) mg/dL AST 24 (14-36) U/L ALT 22 (4-34) U/L Alkaline Phosphatase 105 (38-126) U/L Troponin I (0.000-0.034) ng/mL NT-Pro-B Natriuret Pep 27 pg/mL Total Protein 6.9 (6.3-8.2) g/dL Albumin 4.3 (3.5-5.0) g/dL 06/19/23 Range/Units 10:58 WBC (3.8-10.6) k/uL RBC (3.80-5.40) m/uL Hgb (11.4-16.0) gm/dL Hct (34.0-46.0) % MCV (80.0-100.0) fL MCH (25.0-35.0) pg MCHC (31.0-37.0) g/dL RDW (11.5-15.5) % Plt Count (150-450) k/uL MPV Neutrophils % % Lymphocytes % % Monocytes % % Eosinophils % % Basophils % % Neutrophils # (1.3-7.7) k/uL Lymphocytes # (1.0-4.8) k/uL Monocytes # (0-1.0) k/uL Eosinophils # (0-0.7) k/uL Basophils # (0-0.2) k/uL PT (10.0-12.5) sec INR (<1.2) APTT (22.0-30.0) sec Sodium (137-145) mmol/L Potassium (3.5-5.1) mmol/L Chloride (98-107) mmol/L Carbon Dioxide (22-30) mmol/L Anion Gap mmol/L BUN (7-17) mg/dL Creatinine (0.52-1.04) mg/dL Est GFR (CKD-EPI)AfAm (>60 ml/min/1.73 sqM) Est GFR (CKD-EPI)NonAf (>60 ml/min/1.73 sqM) Glucose (74-99) mg/dL Calcium (8.4-10.2) mg/dL Magnesium (1.6-2.3) mg/dL Total Bilirubin (0.2-1.3) mg/dL AST (14-36) U/L ALT (4-34) U/L Alkaline Phosphatase (38-126) U/L Troponin I <0.012 (0.000-0.034) ng/mL NT-Pro-B Natriuret Pep pg/mL Total Protein (6.3-8.2) g/dL Albumin (3.5-5.0) g/dL Disposition Clinical Impression: Chest pain Disposition: HOME SELF-CARE Condition: Fair Instructions (If sedation given, give patient instructions): Chest Pain (ED) Is patient prescribed a controlled substance at d/c from ED?: No Referrals: Adolph Rincon DO [Primary Care Provider] - 1-2 days Time of Disposition: 12:26
[2023-06-19 11:04] LABS: Basophils # (A) 0.1 k/uL (0-0.2); Basophils % (A) 1 %; Eosinophils # (A) 0.3 k/uL (0-0.7); Eosinophils % (A) 4 %; HCT 39.1 % (34.0-46.0); HGB 12.4 gm/dL (11.4-16.0); Lymphocytes # (A) 2.7 k/uL (1.0-4.8); Lymphocytes % (A) 29 %; MCH 25.9 pg (25.0-35.0); MCHC 31.7 g/dL (31.0-37.0); MCV 81.7 fL (80.0-100.0); Mean Platelet Volume 7.8; Monocytes # (A) 0.5 k/uL (0-1.0); Monocytes % (A) 6 %; Neutrophils # (A) 5.4 k/uL (1.3-7.7); Neutrophils % (A) 59 %; Platelet Count 398 k/uL (150-450); RBC 4.78 m/uL (3.80-5.40); WBC 9.1 k/uL (3.8-10.6)
[2023-06-19 11:13] LABS: ALT 22 U/L (4-34); AST 24 U/L (14-36); African American GFR (CKD) >90 (>60 ml/min/1.73 sqM); Albumin 4.3 g/dL (3.5-5.0); Alkaline Phosphatase 105 U/L (38-126); Anion Gap 5 mmol/L; Blood Urea Nitrogen 10 mg/dL (7-17); Calcium 9.5 mg/dL (8.4-10.2); Carbon Dioxide 26 mmol/L (22-30); Chloride 108 mmol/L (98-107); Glucose 99 mg/dL (74-99); Magnesium 2.1 mg/dL (1.6-2.3); Non-African American GFR(CKD) >90 (>60 ml/min/1.73 sqM); Sodium 139 mmol/L (137-145); Total Bilirubin 0.3 mg/dL (0.2-1.3); Total Protein 6.9 g/dL (6.3-8.2)
[2023-06-19 11:21] LABS: NT-Pro-B-Type Natriuretic Pept 27 pg/mL
[2023-06-19 11:23] LABS: INR 0.9 (<1.2); Partial Thromboplastin Time 25.3 sec (22.0-30.0); Prothrombin Time 10.3 sec (10.0-12.5)
--- NOTE | 2023-06-19 12:16 | XR ---
EXAMINATION TYPE: XR chest 2V DATE OF EXAM: 06/19/2023 COMPARISON: 10/28/2018 INDICATION: Palpitations TECHNIQUE: Frontal and lateral views of the chest are obtained. FINDINGS: The heart size is normal. The pulmonary vasculature is normal. The lungs are clear. IMPRESSION: 1. No acute pulmonary process.
[2023-06-19] MEDS: ASPIRIN 325 MG TAB PO STA (13:35)
[2023-06-19 13:43] VITALS: BP 95/67; PULSE 77; RESP 16; TEMP 98.7
== END 2023-06-19 14:00 | disposition home or self-care (01) ==
LOC: EC 10:15
DX: R07.89 Other chest pain (principal); F17.200 Nicotine dependence, unspecified, uncomplicated; Z91.048 Other nonmedicinal substance allergy status; Z88.8 Allergy status to other drugs, medicaments and biological substances; Z90.49 Acquired absence of other specified parts of digestive tract
CPT/HCPCS: 36415; 71046; 80053; 83735; 83880; 84484; 85025; 85610; 85730; 93005; 99285

== ENCOUNTER 2023-09-12 18:52 | Emergency (ER) | payer MEDICARE ==
[2023-09-12 18:58] VITALS: RESP 18; TEMP 97.9
--- NOTE | 2023-09-12 19:16 | ED ---
General Adult HPI - General Chief complaint: Recheck/Abnormal Lab/Rx Stated complaint: Heartburn Time Seen by Provider: 09/12/23 19:00 Source: patient, RN notes reviewed Mode of arrival: ambulatory Limitations: no limitations - History of Present Illness Initial comments: 58-year-old female with a past medical history significant for GERD on omeprazole, denies any prior cardiac history, presenting to the ED with a chief complaint of heartburn. Patient reports she has had heartburn for the past 2 weeks. Reports a burning sensation in the epigastric region going up to her throat with associated sour taste. States that she saw her PCP for this who added an additional medication to her omeprazole however is unsure what. States that her PCP advised her to present to the ED should symptoms still continue to make sure her heart was okay. Otherwise denies pain of the chest. Denies shortness of breath. Denies abdominal pain. Denies change in bowel or bladder habits. No other complaints at this time. - Related Data Home Medications Medication Instructions Recorded Confirmed lamoTRIgine [LaMICtal] 200 mg PO HS 12/17/15 01/13/23 Atorvastatin [Lipitor] 10 mg PO DAILY 07/19/17 01/13/23 lamoTRIgine [LaMICtal] 100 mg PO QAM 03/13/19 01/13/23 rOPINIRole HCL [Requip] 0.25 mg PO HS PRN 03/13/19 01/13/23 ARIPiprazole [Abilify] 10 mg PO HS 07/26/20 01/13/23 Citalopram Hydrobromide [CeleXA] 40 mg PO DAILY 07/26/20 01/13/23 hydrOXYzine pamoate [Vistaril] 25 mg PO QID 07/26/20 01/13/23 traZODone HCL 100 mg PO HS PRN 07/26/20 01/13/23 Multivitamin [Multivitamins Adult 1 tab PO DAILY 02/27/22 01/13/23 Gummies] Biotin [Biotin Disolve] 5,000 mcg PO DAILY 09/02/22 01/13/23 L.acidoph,Paracasei, B.lactis 1 each PO DAILY 09/02/22 01/13/23 [Probiotic] Linaclotide [Linzess] 145 mcg PO DAILY 09/02/22 01/13/23 Losartan [Cozaar] 25 mg PO DAILY 09/02/22 01/13/23 Metoprolol Tartrate 12.5 mg PO DAILY 09/02/22 01/13/23 Dulaglutide [Trulicity] 3 mg SQ WEEKLY 10/12/22 01/13/23 Omeprazole 20 mg PO DAILY PRN 01/13/23 01/13/23 Allergies Allergy/AdvReac Type Severity Reaction Status Date / Time grass pollen-perennial rye, Allergy ITCHY,WATERY Verified 09/12/23 18:58 standar EYES AND [grass poll-perennial NOSE rye,std] rivaroxaban [From Xarelto] Allergy NEVER Verified 09/12/23 18:58 WANTS TO HAVE tape Allergy tears Uncoded 09/12/23 18:58 skin,rash, states "paper tape is ok" Review of Systems ROS Statement: Those systems with pertinent positive or pertinent negative responses have been documented in the HPI. ROS Other: All systems not noted in ROS Statement are negative. Past Medical History Past Medical History: Atrial Flutter, Cancer, COPD, Diabetes Mellitus, GERD/Refl ux, Hyperlipidemia, Osteoarthritis (OA), Skin Disorder Additional Past Medical History / Comment(s): migraines, chronic BACK PAIN. DDD, bulging disks, hx Skin CA. GETS NAUSEA WHEN EATING OFTEN, heart murmer, palpitations, hiatal hernia, constipation, History of Any Multi-Drug Resistant Organisms: None Reported Past Surgical History: Bariatric Surgery, Breast Surgery, Section, Cholecystectomy, Hernia Repair, Orthopedic Surgery, Uterine Ablation Additional Past Surgical History / Comment(s): RT Knee arthroscopy. KAILEY MULT TOES Surgery. Sinus Surgery. Gastric Bypass 2013. kailey Breast biopsy. CERVICAL CONE PROC. PAIN PROC BACK, ,kailey eyelid procedure , incisional hernia repair, Past Anesthesia/Blood Transfusion Reactions: Previous Problems w/ Anesthesia, Motion Sickness Additional Past Anesthesia/Blood Transfusion Reaction / Comment(s): Woke up once during anesthesia. Mom has difficulty coming out of anesthesia and low b/p. Past Psychological History: Anxiety, Bipolar, Depression, Panic Disorder Smoking Status: Current every day smoker Past Alcohol Use History: Occasional Past Drug Use History: None Reported - Past Family History Father History Unknown: Yes Family Medical History: Cancer Additional Family Medical History / Comment(s): skin cancer Mother Family Medical History: Deep Vein Thrombosis (DVT) General Exam Limitations: no limitations General appearance: alert, in no apparent distress Eye exam: Present: normal appearance Neck exam: Present: normal inspection Respiratory exam: Present: normal lung sounds bilaterally Cardiovascular Exam: Present: regular rate GI/Abdominal exam: Present: soft, normal bowel sounds. Absent: distended, tenderness, guarding, rebound, rigid Neurological exam: Present: alert, oriented X3 Skin exam: Present: warm, dry Course Vital Signs 09/12/23 18:53 Temperature 97.9 F Pulse Rate 89 Respiratory 18 Rate Blood Pressure 119/78 O2 Sat by Pulse 100 Oximetry Medical Decision Making - Medical Decision Making Was pt. sent in by a medical professional or institution (, PA, [facility] TE[facility], urgent care, hospital, or penitentiary...) When possible be specific @ -No Did you speak to anyone other than the patient for history (EMS, parent, family, police, friend...)? What history was obtained from this source @ -No Did you review nursing and triage notes (agree or disagree)? Why? @ -I reviewed and agree with nursing and triage notes Were old charts reviewed (outside hosp., previous admission, EMS record, old EKG, old radiological studies, urgent care reports/EKG's, penitentiary records)? Report findings @ -No old charts were reviewed Differential Diagnosis (chest pain, altered mental status, abdominal pain women, abdominal pain men, vaginal bleeding, weakness, fever, dyspnea, syncope, headache, dizziness, GI bleed, back pain, seizure, CVA, palpatations, mental health, musculoskeletal)? @ -Differential Chest Pain: Stable Angina, Unstable Angina, STEMI, NSTEMI Aortic Dissection, Pneumothorax, Musculoskeletal, Esophageal Spasm GERD, Cholecystitis, Pancreatitis, Zoster, this is not meant to be an all-inclusive list. EKG interpreted by me (3pts min.). @ -EKG interpreted me showing a sinus rhythm with T wave changes. KS 147, QRS 88, QT/QTc 367/399. X-rays interpreted by me (1pt min.). @ -X-ray interpreted me which revealed no evidence of acute finding. CT interpreted by me (1pt min.). @ -None done U/S interpreted by me (1pt. min.). @ -None done What testing was considered but not performed or refused? (CT, X-rays, U/S, labs)? Why? @ -None What meds were considered but not given or refused? Why? @ -None Did you discuss the management of the patient with other professionals (dang poon i.e. , PA, [facility]EN TE[facility], lab, RT, psych nurse, social staff worker, operator prefinish, teacher, procurement officer, bottle caser)? Give summary @ -No Was smoking cessation discussed for >3mins.? @ -No Was critical care preformed (if so, how long)? @ -No Were there social determinants of health that impacted care today? How? (Homelessness, low income, unemployed, alcoholism, drug addiction, transportation, low edu. Level, literacy, decrease access to med. care, halfway, rehab)? @ -No Was there de-escalation of care discussed even if they declined (Discuss DNR or withdrawal of care, Hospice)? DNR status @ -No What co-morbidities impacted this encounter? (DM, HTN, Smoking, COPD, CAD, Cancer, CVA, ARF, Chemo, Hep., AIDS, mental health diagnosis, sleep apnea, morbid obesity)? @ -None Was patient admitted / discharged? Hospital course, mention meds given and route, prescriptions, significant lab abnormalities, going to OR and other pertinent info. @ -Discharge 58-year-old female presenting to the ED with complaints of heartburn for the last 2 weeks. Was seen by her PCP and was advised to present to the ED symptoms persist. Laboratory studies reviewed. Labs including CBC CMP unremarkable. Urine does show some slight evidence of infection however is also contaminated. Patient asymptomatic. Offered antibiotics however patient declined. Troponin x 2 undetectable. Did offer patient observation stay to see cardiology however patient at this time would like to be discharged home. Discharged home in stable condition. Discussed return precautions with patient who verbalized agreement. Undiagnosed new problem with uncertain prognosis? @ -No Drug Therapy requiring intensive monitoring for toxicity (Heparin, Nitro, Insulin, Cardizem)? @ -No Were any procedures done? @ -No Diagnosis/symptom? @ -Heartburn Acute, or Chronic, or Acute on Chronic? @ -Acute Uncomplicated (without systemic symptoms) or Complicated (systemic symptoms)? @ -Uncomplicated Side effects of treatment? @ -No Exacerbation, Progression, or Severe Exacerbation? @ -No Poses a threat to life or bodily function? How? (Chest pain, [place], [place], pneumonia, PE, COPD, DKA, ARF, appy, cholecystitis, CVA, Diverticulitis, Homicidal, Suicidal, threat to staff... and all critical care pts) @ -No - Lab Data Result diagrams: 09/12/23 19:24 09/12/23 19:24 Lab Results 09/12/23 09/12/23 09/12/23 Range/Units 19:24 19:24 19:24 WBC 10.2 (3.8-10.6) k/uL RBC 4.52 (3.80-5.40) m/uL Hgb 11.4 (11.4-16.0) gm/dL Hct 35.6 (34.0-46.0) % MCV 78.7 L (80.0-100.0) fL MCH 25.2 (25.0-35.0) pg MCHC 32.0 (31.0-37.0) g/dL RDW 14.2 (11.5-15.5) % Plt Count 408 (150-450) k/uL MPV 8.6 Neutrophils % 68 % Lymphocytes % 20 % Monocytes % 7 % Eosinophils % 3 % Basophils % 1 % Neutrophils # 6.9 (1.3-7.7) k/uL Lymphocytes # 2.1 (1.0-4.8) k/uL Monocytes # 0.7 (0-1.0) k/uL Eosinophils # 0.3 (0-0.7) k/uL Basophils # 0.1 (0-0.2) k/uL PT 10.4 (10.0-12.5) sec INR 0.9 (<1.2) APTT 23.8 (22.0-30.0) sec Sodium 136 L (137-145) mmol/L Potassium 3.8 (3.5-5.1) mmol/L Chloride 105 (98-107) mmol/L Carbon Dioxide 25 (22-30) mmol/L Anion Gap 6 mmol/L BUN 16 (7-17) mg/dL Creatinine 0.57 (0.52-1.04) mg/dL Est GFR (CKD-EPI)AfAm >90 (>60 ml/min/1.73 sqM) Est GFR (CKD-EPI)NonAf >90 (>60 ml/min/1.73 sqM) Glucose 133 H (74-99) mg/dL Calcium 9.6 (8.4-10.2) mg/dL Magnesium 1.8 (1.6-2.3) mg/dL Total Bilirubin 0.3 (0.2-1.3) mg/dL AST 24 (14-36) U/L ALT 21 (4-34) U/L Alkaline Phosphatase 159 H (38-126) U/L Troponin I (0.000-0.034) ng/mL Total Protein 6.6 (6.3-8.2) g/dL Albumin 4.0 (3.5-5.0) g/dL Urine Color Urine Appearance (Clear) Urine pH (5.0-8.0) Ur Specific [place] (1.001-1.035) Urine Protein (Negative) Urine Glucose (UA) (Negative) Urine Ketones (Negative) Urine Blood (Negative) Urine Nitrite (Negative) Urine Bilirubin (Negative) Urine Urobilinogen (<2.0) mg/dL Ur Leukocyte Esterase (Negative) Urine RBC (0-5) /hpf Urine WBC (0-5) /hpf Ur Squamous Epith Cells (0-4) /hpf Calcium Oxalate Crystal (None) /hpf Urine Bacteria (None) /hpf Urine Mucus (None) /hpf 09/12/23 09/12/23 09/12/23 Range/Units 19:24 20:04 22:38 WBC (3.8-10.6) k/uL RBC (3.80-5.40) m/uL Hgb (11.4-16.0) gm/dL Hct (34.0-46.0) % MCV (80.0-100.0) fL MCH (25.0-35.0) pg MCHC (31.0-37.0) g/dL RDW (11.5-15.5) % Plt Count (150-450) k/uL MPV Neutrophils % % Lymphocytes % % Monocytes % % Eosinophils % % Basophils % % Neutrophils # (1.3-7.7) k/uL Lymphocytes # (1.0-4.8) k/uL Monocytes # (0-1.0) k/uL Eosinophils # (0-0.7) k/uL Basophils # (0-0.2) k/uL PT (10.0-12.5) sec INR (<1.2) APTT (22.0-30.0) sec Sodium (137-145) mmol/L Potassium (3.5-5.1) mmol/L Chloride (98-107) mmol/L Carbon Dioxide (22-30) mmol/L Anion Gap mmol/L BUN (7-17) mg/dL Creatinine (0.52-1.04) mg/dL Est GFR (CKD-EPI)AfAm (>60 ml/min/1.73 sqM) Est GFR (CKD-EPI)NonAf (>60 ml/min/1.73 sqM) Glucose (74-99) mg/dL Calcium (8.4-10.2) mg/dL Magnesium (1.6-2.3) mg/dL Total Bilirubin (0.2-1.3) mg/dL AST (14-36) U/L ALT (4-34) U/L Alkaline Phosphatase (38-126) U/L Troponin I <0.012 <0.012 (0.000-0.034) ng/mL Total Protein (6.3-8.2) g/dL Albumin (3.5-5.0) g/dL Urine Color Yellow Urine Appearance Cloudy H (Clear) Urine pH 6.0 (5.0-8.0) Ur Specific [place] 1.031 (1.001-1.035) Urine Protein 1+ H (Negative) Urine Glucose (UA) Negative (Negative) Urine Ketones Negative (Negative) Urine Blood Negative (Negative) Urine Nitrite Negative (Negative) Urine Bilirubin Negative (Negative) Urine Urobilinogen 3.0 (<2.0) mg/dL Ur Leukocyte Esterase Trace H (Negative) Urine RBC 2 (0-5) /hpf Urine WBC 9 H (0-5) /hpf Ur Squamous Epith Cells 5 H (0-4) /hpf Calcium Oxalate Crystal Moderate H (None) /hpf Urine Bacteria Rare H (None) /hpf Urine Mucus Many H (None) /hpf Disposition Clinical Impression: Heartburn Disposition: HOME SELF-CARE Condition: Good Instructions (If sedation given, give patient instructions): Chest Pain (ED), Antacid, Calcium Containing (By mouth), GERD (Gastroesophageal Reflux Disease) (ED) Additional Instructions: Please return to the Emergency Department if symptoms worsen or any other concerns. Please follow-up with your primary care provider. Is patient prescribed a controlled substance at d/c from ED?: No Referrals: Adolph Rincon DO [Primary Care Provider] - 1-2 days Time of Disposition: 23:30
[2023-09-12] MEDS: diphenhydrAMINE 50 MG CAP PO STA (19:29)
[2023-09-12] MEDS: LIDOCAINE VISCOUS 2% 15 ML CUP PO ONE (19:30)
[2023-09-12] MEDS: MAG HYDROX/AL HYDROX/SIMETH 30 ML CUP PO STA (19:30)
[2023-09-12] MEDS: FAMOTIDINE 20 MG TAB PO STA (19:30)
[2023-09-12 19:41] LABS: Basophils # (A) 0.1 k/uL (0-0.2); Basophils % (A) 1 %; Eosinophils # (A) 0.3 k/uL (0-0.7); Eosinophils % (A) 3 %; HCT 35.6 % (34.0-46.0); HGB 11.4 gm/dL (11.4-16.0); Lymphocytes # (A) 2.1 k/uL (1.0-4.8); Lymphocytes % (A) 20 %; MCH 25.2 pg (25.0-35.0); MCV 78.7 fL (80.0-100.0); Mean Platelet Volume 8.6; Monocytes # (A) 0.7 k/uL (0-1.0); Monocytes % (A) 7 %; Neutrophils # (A) 6.9 k/uL (1.3-7.7); Neutrophils % (A) 68 %; Platelet Count 408 k/uL (150-450); RBC 4.52 m/uL (3.80-5.40); RDW 14.2 % (11.5-15.5); WBC 10.2 k/uL (3.8-10.6)
[2023-09-12 19:52] LABS: INR 0.9 (<1.2); Partial Thromboplastin Time 23.8 sec (22.0-30.0); Prothrombin Time 10.4 sec (10.0-12.5)
[2023-09-12 20:08] LABS: ALT 21 U/L (4-34); AST 24 U/L (14-36); African American GFR (CKD) >90 (>60 ml/min/1.73 sqM); Alkaline Phosphatase 159 U/L (38-126); Anion Gap 6 mmol/L; Blood Urea Nitrogen 16 mg/dL (7-17); Calcium 9.6 mg/dL (8.4-10.2); Carbon Dioxide 25 mmol/L (22-30); Chloride 105 mmol/L (98-107); Glucose 133 mg/dL (74-99); Magnesium 1.8 mg/dL (1.6-2.3); Non-African American GFR(CKD) >90 (>60 ml/min/1.73 sqM); Potassium 3.8 mmol/L (3.5-5.1); Sodium 136 mmol/L (137-145); Total Bilirubin 0.3 mg/dL (0.2-1.3); Total Protein 6.6 g/dL (6.3-8.2)
[2023-09-12 20:16] LABS: Appearance,Urine Cloudy (Clear); Bacteria,Urine Rare /hpf; Bilirubin,Urine Negative (Negative); Blood,Urine Negative (Negative); Calcium Oxalate Crystals,Urine Moderate /hpf; Color,Urine Yellow; Glucose,Urine (UA) Negative (Negative); Ketones,Urine Negative (Negative); Leukocyte Esterase,Urine Trace (Negative); Mucus,Urine Many /hpf; Nitrite,Urine Negative (Negative); Protein,Urine 1+ (Negative); RBC,Urine 2 /hpf (0-5); Specific Gravity,Urine 1.031 (1.001-1.035); Squamous Epithelial Cell,Urine 5 /hpf (0-4); WBC,Urine 9 /hpf (0-5)
--- NOTE | 2023-09-12 21:40 | XR ---
EXAMINATION TYPE: XR chest 2V DATE OF EXAM: 09/12/2023 9:28 PM CLINICAL INDICATION:Female, 58 years old with history of chest pain; [facility] COMPARISON: Chest radiographs from 06/19/2023 TECHNIQUE: XR chest 2V Frontal and lateral views of the chest. FINDINGS: Lungs/Pleura: There is no evidence of pleural effusion, focal consolidation, or pneumothorax. Pulmonary vascularity: Unremarkable. Heart/mediastinum: Cardiomediastinal silhouette is unremarkable. Musculoskeletal: No acute osseous pathology. IMPRESSION: No acute cardiopulmonary disease/process.
[2023-09-13 00:33] VITALS: BP 108/76; PULSE 82
== END 2023-09-13 00:33 | disposition home or self-care (01) ==
LOC: EC 18:52
DX: R12 Heartburn (principal); F17.200 Nicotine dependence, unspecified, uncomplicated; Z88.8 Allergy status to other drugs, medicaments and biological substances; Z91.09 Other allergy status, other than to drugs and biological substances
CPT/HCPCS: 36415; 71046; 80053; 81001; 83735; 84484; 85025; 85610; 85730; 93005; 99284

== ENCOUNTER 2023-10-01 21:18 | Emergency (ER) | payer MEDICARE ==
[2023-10-01 22:39] LABS: Glucose,Whole Blood 392 mg/dL (70-110)
[2023-10-01] MEDS: SODIUM CHLORIDE 0.9% 1,000 ML IV ONE (22:43)
[2023-10-01 23:00] LABS: Basophils % (A) 0 %; Eosinophils # (A) 0.5 k/uL (0-0.7); Eosinophils % (A) 4 %; HGB 10.8 gm/dL (11.4-16.0); Lymphocytes # (A) 1.5 k/uL (1.0-4.8); Lymphocytes % (A) 13 %; MCH 24.7 pg (25.0-35.0); MCHC 32.7 g/dL (31.0-37.0); MCV 75.5 fL (80.0-100.0); Monocytes # (A) 0.7 k/uL (0-1.0); Monocytes % (A) 7 %; Neutrophils # (A) 8.4 k/uL (1.3-7.7); Neutrophils % (A) 74 %; Platelet Count 442 k/uL (150-450); RBC 4.37 m/uL (3.80-5.40); RDW 13.4 % (11.5-15.5); WBC 11.4 k/uL (3.8-10.6)
[2023-10-01 23:18] LABS: ALT 40 U/L (4-34); AST 34 U/L (14-36); African American GFR (CKD) >90 (>60 ml/min/1.73 sqM); Albumin 3.8 g/dL (3.5-5.0); Alkaline Phosphatase 247 U/L (38-126); Anion Gap 8 mmol/L; Blood Urea Nitrogen 14 mg/dL (7-17); Calcium 9.6 mg/dL (8.4-10.2); Carbon Dioxide 27 mmol/L (22-30); Chloride 96 mmol/L (98-107); Glucose 372 mg/dL (74-99); Non-African American GFR(CKD) >90 (>60 ml/min/1.73 sqM); Potassium 4.5 mmol/L (3.5-5.1); Sodium 131 mmol/L (137-145); Total Bilirubin 0.7 mg/dL (0.2-1.3); Total Protein 6.5 g/dL (6.3-8.2)
[2023-10-02 00:09] LABS: Appearance,Urine Clear (Clear); Bilirubin,Urine Negative (Negative); Blood,Urine Negative (Negative); Color,Urine Colorless; Glucose,Urine (UA) 4+ (Negative); Ketones,Urine Negative (Negative); Leukocyte Esterase,Urine Negative (Negative); Nitrite,Urine Negative (Negative); PH, Urine 5.5 (5.0-8.0); Protein,Urine Negative (Negative); Specific Gravity,Urine 1.024 (1.001-1.035); Urobilinogen,Urine <2.0 mg/dL (<2.0)
[2023-10-02 00:42] VITALS: RESP 16
[2023-10-02 01:28] LABS: Glucose,Whole Blood 329 mg/dL (70-110)
[2023-10-02] MEDS: INSULIN REGULAR 100 UNIT/ML VIAL (IM/SQ) SQ ONE ×2 (01:39→03:14)
[2023-10-02 02:27] LABS: Glucose,Whole Blood 303 mg/dL (70-110)
[2023-10-02 03:50] LABS: Glucose,Whole Blood 238 mg/dL (70-110)
[2023-10-02 04:17] VITALS: BP 138/86; PULSE 84; TEMP 99.1
--- NOTE | 2023-10-02 04:58 | ED ---
General Adult HPI - General Chief complaint: Recheck/Abnormal Lab/Rx Stated complaint: Hyperglycemia Time Seen by Provider: 10/01/23 21:25 Source: patient Mode of arrival: ambulatory Limitations: no limitations - History of Present Illness Initial comments: 58-year-old female presents emergency department reporting hypoglycemia. States that her primary care doctor took her off of Trulicity due to liver enzyme elevation. They never placed her on anything different for her diabetes. Patient reportedly checked her sugar and found it to be high at home. This prompted her ER visit. Patient admits to some nausea. Denies any pain. No fevers. No other alleviating, precipitating or modifying factors - Related Data Home Medications Medication Instructions Recorded Confirmed lamoTRIgine [LaMICtal] 200 mg PO HS 12/17/15 10/11/23 Atorvastatin [Lipitor] 10 mg PO DAILY 07/19/17 10/11/23 lamoTRIgine [LaMICtal] 100 mg PO QAM 03/13/19 10/11/23 rOPINIRole HCL [Requip] 0.25 mg PO HS PRN 03/13/19 10/11/23 ARIPiprazole [Abilify] 10 mg PO QAM 07/26/20 10/11/23 hydrOXYzine pamoate [Vistaril] 50 mg PO QID PRN 07/26/20 10/11/23 traZODone HCL 100 mg PO HS PRN 07/26/20 10/11/23 Multivitamin [Multivitamins Adult 1 tab PO DAILY 02/27/22 10/11/23 Gummies] Biotin [Biotin Disolve] 5,000 mcg PO DAILY 09/02/22 10/11/23 L.acidoph,Paracasei, B.lactis 1 each PO DAILY 09/02/22 10/11/23 [Probiotic] Linaclotide [Linzess] 145 mcg PO DAILY 09/02/22 10/11/23 Losartan [Cozaar] 25 mg PO QAM 09/02/22 10/11/23 Metoprolol Tartrate 12.5 mg PO QAM 09/02/22 10/11/23 Calcium Carbonate/Vitamin D3 2 tab PO DAILY 10/06/23 10/11/23 [Calcium 500 mg Chewable Tablet] Pantoprazole [Protonix] 40 mg PO BID 10/06/23 10/11/23 Dulaglutide [Trulicity] 3 mg SQ WEEKLY 10/07/23 10/11/23 Ferrous Sulfate [Iron (65 MG 325 mg PO DAILY 10/08/23 10/11/23 Elemental)] Previous Rx's Medication Instructions Recorded glipiZIDE 5 mg PO BID #30 tablet 10/02/23 Allergies Allergy/AdvReac Type Severity Reaction Status Date / Time grass pollen-perennial rye, Allergy ITCHY,WATERY Verified 10/11/23 07:11 standar EYES AND [grass poll-perennial NOSE rye,std] rivaroxaban [From Xarelto] Allergy NEVER Verified 10/11/23 07:11 WANTS TO HAVE tape Allergy tears Uncoded 10/11/23 07:11 skin,rash, states "paper tape is ok" Review of Systems ROS Statement: Those systems with pertinent positive or pertinent negative responses have been documented in the HPI. ROS Other: All systems not noted in ROS Statement are negative. Past Medical History Past Medical History: Atrial Flutter, Cancer, COPD, Diabetes Mellitus, GERD/Reflux, Hyperlipidemia, Hypertension, Osteoarthritis (OA), Skin Disorder Additional Past Medical History / Comment(s): migraines, chronic BACK PAIN. DDD, bulging disks, hx Skin CA. GETS NAUSEA WHEN EATING OFTEN, heart murmer, palpitations, hiatal hernia, constipation, History of Any Multi-Drug Resistant Organisms: None Reported Past Surgical History: Bariatric Surgery, Breast Surgery, Section, Cholecystectomy, Hernia Repair, Orthopedic Surgery, Uterine Ablation Additional Past Surgical History / Comment(s): RT Knee arthroscopy. KAILEY MULT TOES Surgery. Sinus Surgery. Gastric Bypass 2013. kailey Breast biopsy. CERVICAL CONE PROC. PAIN PROC BACK, ,kailey eyelid procedure , incisional hernia repair, Past Anesthesia/Blood Transfusion Reactions: Previous Problems w/ Anesthesia, Motion Sickness Additional Past Anesthesia/Blood Transfusion Reaction / Comment(s): Woke up once during anesthesia. Mom has difficulty coming out of anesthesia and low b/p. Past Psychological History: Anxiety, Bipolar, Depression, Panic Disorder Smoking Status: Former smoker Past Alcohol Use History: Occasional Past Drug Use History: None Reported - Past Family History Father History Unknown: Yes Family Medical History: Cancer Additional Family Medical History / Comment(s): skin cancer Mother Family Medical History: Deep Vein Thrombosis (DVT) General Exam Limitations: no limitations General appearance: alert, in no apparent distress Head exam: Present: atraumatic, normocephalic, normal inspection Eye exam: Present: normal appearance, PERRL, EOMI. Absent: scleral icterus, conjunctival injection, periorbital swelling ENT exam: Present: normal exam, mucous membranes moist Neck exam: Present: normal inspection. Absent: tenderness, meningismus, lymphadenopathy Respiratory exam: Present: normal lung sounds bilaterally. Absent: respiratory distress, wheezes, rales, rhonchi, stridor Cardiovascular Exam: Present: regular rate, normal rhythm, normal heart sounds. Absent: systolic murmur, diastolic murmur, rubs, gallop, clicks GI/Abdominal exam: Present: soft, normal bowel sounds. Absent: distended, tenderness, guarding, rebound, rigid Extremities exam: Present: normal inspection, full ROM, normal capillary refill. Absent: tenderness, pedal edema, joint swelling, calf tenderness Back exam: Present: normal inspection Neurological exam: Present: alert, oriented X3, CN II-XII intact Psychiatric exam: Present: normal affect, normal mood Skin exam: Present: warm, dry, intact, normal color. Absent: rash Course Vital Signs 10/01/23 10/02/23 10/02/23 21:23 00:41 04:16 Temperature 99.1 F 98.4 F 99.1 F Pulse Rate 98 77 84 Respiratory 18 16 16 Rate Blood Pressure 112/77 127/79 138/86 O2 Sat by Pulse 99 97 95 Oximetry Medical Decision Making - Medical Decision Making Was pt. sent in by a medical professional or institution (, PA, WINDSHIELD REPAIR TECHNICIAN, urgent care, hospital, or [place] health care facility...) When possible be specific @ -No Did you speak to anyone other than the patient for history (EMS, parent, family, police, friend...)? What history was obtained from this source @ -No Did you review nursing and triage notes (agree or disagree)? Why? @ -I reviewed and agree with nursing and triage notes Were old charts reviewed (outside hosp., previous admission, EMS record, old EKG, old radiological studies, urgent care reports/EKG's, [place] health care facility records)? Report findings @ -No old charts were reviewed Differential Diagnosis (chest pain, altered mental status, abdominal pain women, abdominal pain men, vaginal bleeding, weakness, fever, dyspnea, syncope, headache, dizziness, GI bleed, back pain, seizure, CVA, palpatations, mental health, musculoskeletal)? @ -Differential Weakness: Hypoglycemia, shock, sepsis, hyponatremia, anemia, infection, ID, ETOH, adverse medicine reaction, overdose, stroke, this is not meant to be an all-inclusive list. EKG interpreted by me (3pts min.). @ -Not done X-rays interpreted by me (1pt min.). @ -None done CT interpreted by me (1pt min.). @ -None done U/S interpreted by me (1pt. min.). @ -None done What testing was considered but not performed or refused? (CT, X-rays, U/S, labs)? Why? @ -None What meds were considered but not given or refused? Why? @ -None Did you discuss the management of the patient with other professionals (professionals i.e. , PA, W[employer]SHIELD REPAIR TECHNICIAN, lab, RT, psych nurse, oncology social work, brood hatchery manager, teacher, chief quality officer, rn case manager hospice)? Give summary @ -No Was smoking cessation discussed for >3mins.? @ -No Was critical care preformed (if so, how long)? @ -No Were there social determinants of health that impacted care today? How? (Homelessness, low income, unemployed, alcoholism, drug addiction, transportation, low edu. Level, literacy, decrease access to med. care, residential, rehab)? @ -No Was there de-escalation of care discussed even if they declined (Discuss DNR or withdrawal of care, Hospice)? DNR status @ -No What co-morbidities impacted this encounter? (DM, HTN, Smoking, COPD, CAD, Cancer, CVA, ARF, Chemo, Hep., AIDS, mental health diagnosis, sleep apnea, morbid obesity)? @ -Diabetes Was patient admitted / discharged? Hospital course, mention meds given and route, prescriptions, significant lab abnormalities, going to OR and other pertinent info. @ -Upon arrival patient seen and evaluated in room 23. Thorough history and physical exam was performed. Patient presents with hyperglycemia. IV is established and she is administered IV fluids. Laboratory studies are conducted. I did administer insulin. After several hours we are eventually able to get the patient's glucose down. I will add glipizide as a home medication for the patient. She is instructed to call her primary care doctor and speak with them in regards to new medications. Return for any new or worsening symptoms. Patient agreeable to plan was discharged in stable condition Undiagnosed new problem with uncertain prognosis? @ -No Drug Therapy requiring intensive monitoring for toxicity (Heparin, Nitro, Insulin, Cardizem)? @ -No Were any procedures done? @ -No Diagnosis/symptom? @ -Acute hyperglycemia, history of diabetes mellitus Acute, or Chronic, or Acute on Chronic? @ -Acute Uncomplicated (without systemic symptoms) or Complicated (systemic symptoms)? @ -Complicated Side effects of treatment? @ -No Exacerbation, Progression, or Severe Exacerbation? @ -No Poses a threat to life or bodily function? How? (Chest pain, USA, ID, pneumonia, PE, COPD, DKA, ARF, appy, cholecystitis, CVA, Diverticulitis, Homicidal, Suicidal, threat to staff... and all critical care pts) @ -No - Lab Data Result diagrams: 10/01/23 22:38 10/01/23 22:38 Lab Results 10/01/23 10/01/23 10/01/23 Range/Units 22:37 22:38 22:38 WBC 11.4 H (3.8-10.6) k/uL RBC 4.37 (3.80-5.40) m/uL Hgb 10.8 L (11.4-16.0) gm/dL Hct 33.0 L (34.0-46.0) % MCV 75.5 L (80.0-100.0) fL MCH 24.7 L (25.0-35.0) pg MCHC 32.7 (31.0-37.0) g/dL RDW 13.4 (11.5-15.5) % Plt Count 442 (150-450) k/uL MPV 8.0 Neutrophils % 74 % Lymphocytes % 13 % Monocytes % 7 % Eosinophils % 4 % Basophils % 0 % Neutrophils # 8.4 H (1.3-7.7) k/uL Lymphocytes # 1.5 (1.0-4.8) k/uL Monocytes # 0.7 (0-1.0) k/uL Eosinophils # 0.5 (0-0.7) k/uL Basophils # 0.0 (0-0.2) k/uL Sodium 131 L (137-145) mmol/L Potassium 4.5 (3.5-5.1) mmol/L Chloride 96 L (98-107) mmol/L Carbon Dioxide 27 (22-30) mmol/L Anion Gap 8 mmol/L BUN 14 (7-17) mg/dL Creatinine 0.60 (0.52-1.04) mg/dL Est GFR (CKD-EPI)AfAm >90 (>60 ml/min/1.73 sqM) Est GFR (CKD-EPI)NonAf >90 (>60 ml/min/1.73 sqM) Glucose 372 H (74-99) mg/dL POC Glucose (mg/dL) 392 H (70-110) mg/dL POC Glu Public Relations Supervisor ID Yasir Saleh Calcium 9.6 (8.4-10.2) mg/dL Total Bilirubin 0.7 (0.2-1.3) mg/dL AST 34 (14-36) U/L ALT 40 H (4-34) U/L Alkaline Phosphatase 247 H (38-126) U/L Total Protein 6.5 (6.3-8.2) g/dL Albumin 3.8 (3.5-5.0) g/dL Urine Color Urine Appearance (Clear) Urine pH (5.0-8.0) Ur Specific [place] (1.001-1.035) Urine Protein (Negative) Urine Glucose (UA) (Negative) Urine Ketones (Negative) Urine Blood (Negative) Urine Nitrite (Negative) Urine Bilirubin (Negative) Urine Urobilinogen (<2.0) mg/dL Ur Leukocyte Esterase (Negative) Acetone, Qual Negative (Negative) 10/02/23 10/02/23 10/02/23 Range/Units 00:00 01:25 02:25 WBC (3.8-10.6) k/uL RBC (3.80-5.40) m/uL Hgb (11.4-16.0) gm/dL Hct (34.0-46.0) % MCV (80.0-100.0) fL MCH (25.0-35.0) pg MCHC (31.0-37.0) g/dL RDW (11.5-15.5) % Plt Count (150-450) k/uL MPV Neutrophils % % Lymphocytes % % Monocytes % % Eosinophils % % Basophils % % Neutrophils # (1.3-7.7) k/uL Lymphocytes # (1.0-4.8) k/uL Monocytes # (0-1.0) k/uL Eosinophils # (0-0.7) k/uL Basophils # (0-0.2) k/uL Sodium (137-145) mmol/L Potassium (3.5-5.1) mmol/L Chloride (98-107) mmol/L Carbon Dioxide (22-30) mmol/L Anion Gap mmol/L BUN (7-17) mg/dL Creatinine (0.52-1.04) mg/dL Est GFR (CKD-EPI)AfAm (>60 ml/min/1.73 sqM) Est GFR (CKD-EPI)NonAf (>60 ml/min/1.73 sqM) Glucose (74-99) mg/dL POC Glucose (mg/dL) 329 H 303 H (70-110) mg/dL POC Glu Public Relations Supervisor ID Adolph Daniels Andrea Calcium (8.4-10.2) mg/dL Total Bilirubin (0.2-1.3) mg/dL AST (14-36) U/L ALT (4-34) U/L Alkaline Phosphatase (38-126) U/L Total Protein (6.3-8.2) g/dL Albumin (3.5-5.0) g/dL Urine Color Colorless Urine Appearance Clear (Clear) Urine pH 5.5 (5.0-8.0) Ur Specific [place] 1.024 (1.001-1.035) Urine Protein Negative (Negative) Urine Glucose (UA) 4+ H (Negative) Urine Ketones Negative (Negative) Urine Blood Negative (Negative) Urine Nitrite Negative (Negative) Urine Bilirubin Negative (Negative) Urine Urobilinogen <2.0 (<2.0) mg/dL Ur Leukocyte Esterase Negative (Negative) Acetone, Qual (Negative) 10/02/23 Range/Units 03:48 WBC (3.8-10.6) k/uL RBC (3.80-5.40) m/uL Hgb (11.4-16.0) gm/dL Hct (34.0-46.0) % MCV (80.0-100.0) fL MCH (25.0-35.0) pg MCHC (31.0-37.0) g/dL RDW (11.5-15.5) % Plt Count (150-450) k/uL MPV Neutrophils % % Lymphocytes % % Monocytes % % Eosinophils % % Basophils % % Neutrophils # (1.3-7.7) k/uL Lymphocytes # (1.0-4.8) k/uL Monocytes # (0-1.0) k/uL Eosinophils # (0-0.7) k/uL Basophils # (0-0.2) k/uL Sodium (137-145) mmol/L Potassium (3.5-5.1) mmol/L Chloride (98-107) mmol/L Carbon Dioxide (22-30) mmol/L Anion Gap mmol/L BUN (7-17) mg/dL Creatinine (0.52-1.04) mg/dL Est GFR (CKD-EPI)AfAm (>60 ml/min/1.73 sqM) Est GFR (CKD-EPI)NonAf (>60 ml/min/1.73 sqM) Glucose (74-99) mg/dL POC Glucose (mg/dL) 238 H (70-110) mg/dL POC Glu Public Relations Supervisor ID Gayathri Burk Calcium (8.4-10.2) mg/dL Total Bilirubin (0.2-1.3) mg/dL AST (14-36) U/L ALT (4-34) U/L Alkaline Phosphatase (38-126) U/L Total Protein (6.3-8.2) g/dL Albumin (3.5-5.0) g/dL Urine Color Urine Appearance (Clear) Urine pH (5.0-8.0) Ur Specific [place] (1.001-1.035) Urine Protein (Negative) Urine Glucose (UA) (Negative) Urine Ketones (Negative) Urine Blood (Negative) Urine Nitrite (Negative) Urine Bilirubin (Negative) Urine Urobilinogen (<2.0) mg/dL Ur Leukocyte Esterase (Negative) Acetone, Qual (Negative) Disposition Clinical Impression: Hyperglycemia Disposition: HOME SELF-CARE Condition: Stable Instructions (If sedation given, give patient instructions): Diabetic Hyperglycemia (ED) Additional Instructions: Please keep a log of your glucose levels. Take the glipizide as directed. Follow-up with the heater operator and return for any new or worsening symptoms Prescriptions: glipiZIDE 5 mg PO BID #30 tablet Is patient prescribed a controlled substance at d/c from ED?: No Referrals: Adolph Rincon DO [Primary Care Provider] - 1-2 days Eugene Hernández MD [REFERRING] - 1-2 days Time of Disposition: 04:58
== END 2023-10-02 05:03 | disposition home or self-care (01) ==
LOC: EC 21:18
DX: E11.65 Type 2 diabetes mellitus with hyperglycemia (principal); Z87.891 Personal history of nicotine dependence; Z91.048 Other nonmedicinal substance allergy status; Z88.8 Allergy status to other drugs, medicaments and biological substances
CPT/HCPCS: 36415; 80053; 81003; 82009; 85025; 99285

== ENCOUNTER → 2023-10-06 | Outpatient (CLI) | payer MEDICARE ==
--- NOTE | 2023-10-06 12:37 | US ---
EXAMINATION TYPE: US abdomen limited DATE OF EXAM: 10/06/2023 COMPARISON: NONE CLINICAL INDICATION: Female, 58 years old with history of R10.13 EPIGASTRIC PAINR10.13 EPIGASTRIC AFSHAN N; pain TECHNIQUE: Multiple sonographic images of the right upper quadrant are obtained. FINDINGS: EXAM MEASUREMENTS: Liver Length: 15 cm Gallbladder Wall: Surgically absent CBD: 1.2 cm Right Kidney: 10.6 x 4.1 x 3.5 cm BOARD CATCHER NOTES: Pancreas: heterogenous hypoechoic area in the head measuring 2.9 x 3.0 x 2.3 cm. Liver: Multiple masses seen largest 5 cm portal vein appears to be thrombosed. Gallbladder: Surgically absent Evidence for sonographic Ramsey's sign: no CBD: Dilated Right Kidney: No hydronephrosis or masses seen IMPRESSION: 1. Multiple hepatic masses with mass in the region of the pancreatic head. Findings are highly suspic ious for metastatic disease. CT of the abdomen and pelvis with contrast is advised. 2. Portal vein thrombosis is difficult to exclude.
== END | disposition home or self-care (01) ==
LOC: RADUSWWP 07:09
PROVIDERS: ATTEND Internal Medicine Gastroenterology
DX: R10.13 Epigastric pain (principal); R16.0 Hepatomegaly, not elsewhere classified; I81 Portal vein thrombosis
CPT/HCPCS: 76705

== ENCOUNTER 2023-10-11 06:04 | Day surgery (SDC) | payer MEDICARE ==
[2023-10-08 08:52] VITALS: BMI 26.6
[~2023-10-11 06:04] MED LIST changes: -LACTATED RINGERS 1,000 ML IV ONE; -LACTATED RINGERS 1,000 ML IV SCH; -LIDOCAINE 2% INJ 20 MG/ML (2 ML VIAL) ONE; -PROPOFOL 10 MG/ML 20 ML VIAL IV ONE; -fentaNYL (PF) 50 MCG/ML 2 ML AMP ONE
--- NOTE | 2023-10-11 06:44 | P.GSHP ---
History of Present Illness H&P Date: 10/11/23 CHIEF COMPLAINT: GERD HISTORY OF PRESENT ILLNESS: The patient is a 58-year-old female who presents reports gastroesophageal reflux disease. Upper endoscopy was offered for further evaluation and management. PAST MEDICAL HISTORY: Please see list. PAST SURGICAL HISTORY: Please see list. MEDICATIONS: Please see list. ALLERGIES: Please see list. SOCIAL HISTORY: No illicit drug use FAMILY HISTORY: No reports of Crohn disease or ulcerative colitis. REVIEW OF ORGAN SYSTEMS: CONSTITUTIONAL: No reports of fevers or chills. GI: Denies any blood in stools or constipation. PHYSICAL EXAM: VITAL SIGNS: Stable GENERAL: Well-developed and pleasant in no acute distress. HEENT: No scleral icterus. Extraocular movements grossly intact. Moist buccal mucosa. NECK: Supple without lymphadenopathy. CHEST: Unlabored respirations. Equal bilateral excursions. CARDIOVASCULAR: Regular rate and rhythm. Distal 2+ pulses. ABDOMEN: Soft, nondistended. MUSCULOSKELETAL: No clubbing, cyanosis, or edema. ASSESSMENT: 1. Gastroesophageal reflux disease PLAN: 1. Recommend proceeding with an upper endoscopy Past Medical History Past Medical History: Atrial Flutter, Cancer, COPD, Diabetes Mellitus, GERD/Reflux, Hyperlipidemia, Hypertension, Osteoarthritis (OA), Skin Disorder Additional Past Medical History / Comment(s): migraines, chronic BACK PAIN. DDD, bulging disks, hx Skin CA. GETS NAUSEA WHEN EATING OFTEN, heart murmer, palpitations, hiatal hernia, constipation, History of Any Multi-Drug Resistant Organisms: None Reported Past Surgical History: Bariatric Surgery, Breast Surgery, Section, Cholecystectomy, Hernia Repair, Orthopedic Surgery, Uterine Ablation Additional Past Surgical History / Comment(s): RT Knee arthroscopy. KAILEY MULT TOES Surgery. Sinus Surgery. Gastric Bypass 2013. kailey Breast biopsy. CERVICAL CONE PROC. PAIN PROC BACK, ,kailey eyelid procedure , incisional hernia repair, Past Anesthesia/Blood Transfusion Reactions: Previous Problems w/ Anesthesia, Motion Sickness Additional Past Anesthesia/Blood Transfusion Reaction / Comment(s): Woke up once during anesthesia. Mom has difficulty coming out of anesthesia and low b/p. Additional Past Alcohol Use History / Comment(s): Started Smoking at age 16, 1 ppd. - Past Family History Father History Unknown: Yes Family Medical History: Cancer Additional Family Medical History / Comment(s): skin cancer Mother Family Medical History: Deep Vein Thrombosis (DVT) Medications and Allergies Home Medications Medication Instructions Recorded Confirmed Type lamoTRIgine [LaMICtal] 200 mg PO HS 12/17/15 10/07/23 History Atorvastatin [Lipitor] 10 mg PO DAILY 07/19/17 10/07/23 History lamoTRIgine [LaMICtal] 100 mg PO QAM 03/13/19 10/07/23 History rOPINIRole HCL [Requip] 0.25 mg PO HS PRN 03/13/19 10/07/23 History ARIPiprazole [Abilify] 10 mg PO QAM 07/26/20 10/08/23 History hydrOXYzine pamoate [Vistaril] 50 mg PO QID PRN 07/26/20 10/07/23 History traZODone HCL 100 mg PO HS PRN 07/26/20 10/07/23 History Multivitamin [Multivitamins Adult 1 tab PO DAILY 02/27/22 10/07/23 History Gummies] Biotin [Biotin Disolve] 5,000 mcg PO DAILY 09/02/22 10/07/23 History L.acidoph,Paracasei, B.lactis 1 each PO DAILY 09/02/22 10/07/23 History [Probiotic] Linaclotide [Linzess] 145 mcg PO DAILY 09/02/22 10/07/23 History Losartan [Cozaar] 25 mg PO QAM 09/02/22 10/08/23 History Metoprolol Tartrate 12.5 mg PO QAM 09/02/22 10/08/23 History glipiZIDE 5 mg PO BID #30 tablet 10/02/23 10/07/23 Rx Calcium Carbonate/Vitamin D3 2 tab PO DAILY 10/06/23 10/07/23 History [Calcium 500 mg Chewable Tablet] Pantoprazole [Protonix] 40 mg PO BID 10/06/23 10/07/23 History Dulaglutide [Trulicity] 3 mg SQ WEEKLY 10/07/23 10/08/23 History Ferrous Sulfate [Iron (65 MG 325 mg PO DAILY 10/08/23 10/08/23 History Elemental)] Allergies Allergy/AdvReac Type Severity Reaction Status Date / Time grass pollen-perennial rye, Allergy ITCHY,WATERY Verified 10/08/23 08:44 standar EYES AND [grass poll-perennial NOSE rye,std] rivaroxaban [From Xarelto] Allergy NEVER Verified 10/08/23 08:44 WANTS TO HAVE tape Allergy tears Uncoded 10/08/23 08:44 skin,rash, states "paper tape is ok"
[2023-10-11 07:14] VITALS: TEMP 97.5
[2023-10-11] MEDS: IV FLUID CONTINUATION 1,000 ML IV ONE (07:25)
[2023-10-11] MEDS ORDERED: PROPOFOL 10 MG/ML 20 ML VIAL IV ONE (07:28)
[2023-10-11 07:29] LABS: Glucose,Whole Blood 169 mg/dL (70-110)
[2023-10-11] MEDS: LACTATED RINGERS 1,000 ML IV SCH (07:29)
--- NOTE | 2023-10-11 07:53 | P.PCN ---
Date of Procedure: 10/11/23 Description of Procedure: PREOPERATIVE DIAGNOSIS: Dysphagia. Nausea with vomiting. Gastroesophageal reflux disease POSTOPERATIVE DIAGNOSIS: Dysphagia. Hypertensive lower esophageal sphincter Presbyesophagus Esophageal dysmotility OPERATION: Esophagogastrojejunoscopy with rigid dilator, 57-Cameroonian to address lower esophageal hypertensive bowel including esophageal dysmotility SURGEON: Agatha Jaeger MD ANESTHESIA: MAC. INDICATIONS: The patient is a 58-year-old female who presents with gastroesophageal reflux disease, dysphagia, including nausea and vomiting. Benefits and risks of the procedure were described. Informed consent was obtained. DESCRIPTION: The patient was brought into the endoscopy suite and laid in the left lateral decubitus position. After a timeout was confirmed, the procedure was initiated. An Olympus gastroscope was passed along the posterior oropharynx down to the di stal esophagus where the squamocolumnar junction was unremarkable. Moderate tertiary contractions consistent with presbyesophagus was found including hypertensive lower esophageal sphincter. Her mouth was small requiring digital retraction. The gastric pouch was entered and unremarkable. Attention was brought to the hypertensive lower esophageal sphincter. A rigid dilator, 57 Cameroonian was placed over a guidewire to 45 cm from the incisors and left for 2 minutes after exchanging the scope. The scope was reentered and advanced up to 60 cm from the incisors into the Thomas limb. The mucosa of the gastrojejunal anastomosis was intact. No chronic gastrojejunal marginal ulcer was encountered. No full-thickness injury was encountered. The GI tract was desufflated. The patient tolerated the procedure well. FINDINGS: Squamocolumnar junction unremarkable at 37 cm. Widely patent gastrojejunal anastomosis without ulcers Moderate to severe tertiary contractions for presbyesophagus Hypertensive lower esophageal sphincter Rigid dilation of upper esophageal sphincter, 57-Cameroonian No chronic gastrojejunal ulceration encountered. Gastric pouch 3 cm RECOMMENDATIONS: Recommend warm beverages and blenderized diet due to esophageal dysmotility Upper endoscopy as needed. Plan - Discharge Summary Discharge Rx Participant: No New Discharge Prescriptions: Continue lamoTRIgine [LaMICtal] 200 mg PO HS Atorvastatin [Lipitor] 10 mg PO DAILY lamoTRIgine [LaMICtal] 100 mg PO QAM rOPINIRole HCL [Requip] 0.25 mg PO HS PRN PRN Reason: restless legs hydrOXYzine pamoate [Vistaril] 50 mg PO QID PRN PRN Reason: nerve traZODone HCL 100 mg PO HS PRN PRN Reason: sleep Linaclotide [Linzess] 145 mcg PO DAILY Losartan [Cozaar] 25 mg PO QAM Biotin [Biotin Disolve] 5,000 mcg PO DAILY L.acidoph,Paracasei, B.lactis [Probiotic] 1 each PO DAILY glipiZIDE 5 mg PO BID #30 tablet Dulaglutide [Trulicity] 3 mg SQ WEEKLY Ferrous Sulfate [Iron (65 MG Elemental)] 325 mg PO DAILY ARIPiprazole [Abilify] 10 mg PO QAM Multivitamin [Multivitamins Adult Gummies] 1 tab PO DAILY Metoprolol Tartrate 12.5 mg PO QAM Pantoprazole [Protonix] 40 mg PO BID Calcium Carbonate/Vitamin D3 [Calcium 500 mg Chewable Tablet] 2 tab PO DAILY Discharge Medication List lamoTRIgine [LaMICtal] 200 mg PO HS 12/17/15 [History] Atorvastatin [Lipitor] 10 mg PO DAILY 07/19/17 [History] lamoTRIgine [LaMICtal] 100 mg PO QAM 03/13/19 [History] rOPINIRole HCL [Requip] 0.25 mg PO HS PRN 03/13/19 [History] ARIPiprazole [Abilify] 10 mg PO QAM 07/26/20 [History] hydrOXYzine pamoate [Vistaril] 50 mg PO QID PRN 07/26/20 [History] traZODone HCL 100 mg PO HS PRN 07/26/20 [History] Multivitamin [Multivitamins Adult Gummies] 1 tab PO DAILY 02/27/22 [History] Biotin [Biotin Disolve] 5,000 mcg PO DAILY 09/02/22 [History] L.acidoph,Paracasei, B.lactis [Probiotic] 1 each PO DAILY 09/02/22 [History] Linaclotide [Linzess] 145 mcg PO DAILY 09/02/22 [History] Losartan [Cozaar] 25 mg PO QAM 09/02/22 [History] Metoprolol Tartrate 12.5 mg PO QAM 09/02/22 [History] glipiZIDE 5 mg PO BID #30 tablet 10/02/23 [Rx] Calcium Carbonate/Vitamin D3 [Calcium 500 mg Chewable Tablet] 2 tab PO DAILY 10/06/23 [History] Pantoprazole [Protonix] 40 mg PO BID 10/06/23 [History] Dulaglutide [Trulicity] 3 mg SQ WEEKLY 10/07/23 [History] Ferrous Sulfate [Iron (65 MG Elemental)] 325 mg PO DAILY 10/08/23 [History] [facility] [place] [place] [facility] - [facility] Patient Instructions/Handouts: Dysphagia (ED), Esophageal Spasm (GEN) Activity/Diet/Wound Care/Special Instructions: Use warm beverages prior to eating. Avoid cold beverages Discharge Disposition: HOME SELF-CARE
[2023-10-11 07:55] VITALS: RESP 16
[2023-10-11 08:20] VITALS: BP 98/54; PULSE 88
== END 2023-10-11 08:29 | disposition home or self-care (01) ==
LOC: ORWHC2ENDO 06:04
PROVIDERS: ATTEND Surgery Plastic and Reconstructive Surgery
DX: R13.10 Dysphagia, unspecified (principal); E11.9 Type 2 diabetes mellitus without complications; E78.5 Hyperlipidemia, unspecified; I10 Essential (primary) hypertension; J44.9 Chronic obstructive pulmonary disease, unspecified; K21.9 Gastro-esophageal reflux disease without esophagitis; K22.4 Dyskinesia of esophagus; K22.89 Other specified disease of esophagus; M19.90 Unspecified osteoarthritis, unspecified site; Z79.84 Long term (current) use of oral hypoglycemic drugs; Z79.899 Other long term (current) drug therapy; Z85.828 Personal history of other malignant neoplasm of skin; Z87.891 Personal history of nicotine dependence; Z90.49 Acquired absence of other specified parts of digestive tract; Z98.84 Bariatric surgery status; Z98.890 Other specified postprocedural states
CPT/HCPCS: 43248; J2704

== ENCOUNTER 2023-10-15 14:57 | Inpatient (IN) | payer MEDICARE ==
[2023-10-15 16:39] LABS: Basophils # (A) 0.1 k/uL (0-0.2); Basophils % (A) 0 %; Eosinophils # (A) 0.6 k/uL (0-0.7); Eosinophils % (A) 4 %; HCT 32.7 % (34.0-46.0); HGB 10.7 gm/dL (11.4-16.0); Hypochromasia Slight; Lymphocytes # (A) 1.5 k/uL (1.0-4.8); Lymphocytes % (A) 11 %; MCH 24.1 pg (25.0-35.0); MCHC 32.7 g/dL (31.0-37.0); MCV 73.8 fL (80.0-100.0); Mean Platelet Volume 7.1; Microcytosis Slight; Monocytes # (A) 0.7 k/uL (0-1.0); Monocytes % (A) 5 %; Neutrophils # (A) 11.1 k/uL (1.3-7.7); Neutrophils % (A) 79 %; Platelet Count 512 k/uL (150-450); RBC 4.43 m/uL (3.80-5.40); RDW 13.8 % (11.5-15.5); WBC 14.1 k/uL (3.8-10.6)
[2023-10-15 16:48] LABS: ALT 54 U/L (4-34); African American GFR (CKD) >90 (>60 ml/min/1.73 sqM); Anion Gap 9 mmol/L; Blood Urea Nitrogen 19 mg/dL (7-17); Calcium 9.7 mg/dL (8.4-10.2); Carbon Dioxide 29 mmol/L (22-30); Chloride 97 mmol/L (98-107); Glucose 176 mg/dL (74-99); Non-African American GFR(CKD) >90 (>60 ml/min/1.73 sqM); Sodium 135 mmol/L (137-145); Total Bilirubin 1.1 mg/dL (0.2-1.3); Total Protein 7.2 g/dL (6.3-8.2)
[2023-10-15 16:51] LABS: INR 1.1 (<1.2); Partial Thromboplastin Time 23.7 sec (22.0-30.0); Prothrombin Time 11.7 sec (10.0-12.5)
[2023-10-15] MEDS: SODIUM CHLORIDE 0.9% 1,000 ML IV STA (16:59)
[2023-10-15 17:07] LABS: AST 54 U/L (14-36); Alkaline Phosphatase 272 U/L (38-126); Magnesium 1.7 mg/dL (1.6-2.3); Potassium 4.4 mmol/L (3.5-5.1)
--- NOTE | 2023-10-15 17:58 | ED ---
General Adult HPI - General Source: patient, RN notes reviewed Mode of arrival: ambulatory Limitations: no limitations <Kassidy Torres - Last Filed: 10/15/23 20:29> <Cecil Mcfarland - Last Filed: 10/15/23 20:56> - General Chief complaint: Dizziness Stated complaint: SOB,Dizziness Time Seen by Provider: 10/15/23 15:55 - History of Present Illness Initial comments: 58-year-old female presents to the emergency department for evaluation of chest pain, shortness of breath, dizziness. She states that symptoms have been going on for around 1 week. She notes that they have been getting progressively worse. She states that the pain is on the right side of her chest. She notes that she feels short of breath when she moves in certain positions. Patient denies recent illness, fever. Patient states that she recently had an abdominal ultrasound that showed massed on the pancreas and liver. (Kassidy Torres) - Related Data Home Medications Medication Instructions Recorded Confirmed Atorvastatin [Lipitor] 10 mg PO DAILY 07/19/17 10/15/23 hydrOXYzine pamoate [Vistaril] 50 mg PO QID PRN 07/26/20 10/15/23 traZODone HCL 100 mg PO HS PRN 07/26/20 10/15/23 Multivitamin [Multivitamins Adult 1 tab PO DAILY 02/27/22 10/15/23 Gummies] Biotin [Biotin Disolve] 5,000 mcg PO DAILY 09/02/22 10/15/23 L.acidoph,Paracasei, B.lactis 1 cap PO DAILY 09/02/22 10/15/23 [Probiotic] Losartan [Cozaar] 25 mg PO QAM 09/02/22 10/15/23 Metoprolol Tartrate 12.5 mg PO QAM 09/02/22 10/15/23 Calcium Carbonate/Vitamin D3 2 tab PO DAILY 10/06/23 10/15/23 [Calcium 500 mg Chewable Tablet] Pantoprazole [Protonix] 40 mg PO BID PRN 10/06/23 10/15/23 Ferrous Sulfate [Iron (65 MG 325 mg PO DAILY 10/08/23 10/15/23 Elemental)] ARIPiprazole [Abilify] 10 mg PO DAILY 10/15/23 10/15/23 Albuterol Sulfate [Albuterol 2 puff PO RT-Q6H PRN 10/15/23 10/15/23 Sulfate Hfa] lamoTRIgine [LaMICtal] 100 mg PO DAILY 10/15/23 10/15/23 lamoTRIgine [LaMICtal] 200 mg PO HS 10/15/23 10/15/23 Allergies Allergy/AdvReac Type Severity Reaction Status Date / Time grass pollen-perennial rye, Allergy ITCHY,WATERY Verified 10/15/23 18:17 standar EYES AND [grass poll-perennial NOSE rye,std] rivaroxaban [From Xarelto] AdvReac See comment Verified 10/15/23 18:17 tape Allergy tears Uncoded 10/15/23 18:17 skin,rash, states "paper tape is ok" Review of Systems ROS Other: All systems not noted in ROS Statement are negative. <Kassidy Torres - Last Filed: 10/15/23 20:29> ROS Other: All systems not noted in ROS Statement are negative. <Cecil Mcfarland - Last Filed: 10/15/23 20:56> ROS Statement: Those systems with pertinent positive or pertinent negative responses have been documented in the HPI. Past Medical History Past Medical History: Atrial Flutter, Cancer, COPD, Diabetes Mellitus, GERD/Reflux, Hyperlipidemia, Hypertension, Osteoarthritis (OA), Skin Disorder Additional Past Medical History / Comment(s): migraines, chronic BACK PAIN. DDD, bulging disks, hx Skin CA. GETS NAUSEA WHEN EATING OFTEN, heart murmer, palpitations, hiatal hernia, constipation, History of Any Multi-Drug Resistant Organisms: None Reported Past Surgical History: Bariatric Surgery, Breast Surgery, Section, Cholecystectomy, Hernia Repair, Orthopedic Surgery, Uterine Ablation Additional Past Surgical History / Comment(s): RT Knee arthroscopy. KAILEY MULT TOES Surgery. Sinus Surgery. Gastric Bypass 2013. kailey Breast biopsy. CERVICAL CONE PROC. PAIN PROC BACK, ,kailey eyelid procedure , incisional hernia repair, Past Anesthesia/Blood Transfusion Reactions: Previous Problems w/ Anesthesia, Motion Sickness Additional Past Anesthesia/Blood Transfusion Reaction / Comment(s): Woke up once during anesthesia. Mom has difficulty coming out of anesthesia and low b/p. Past Psychological History: Anxiety, Bipolar, Depression, Panic Disorder Smoking Status: Former smoker Past Alcohol Use History: Occasional Past Drug Use History: None Reported - Past Family History Father History Unknown: Yes Family Medical History: Cancer Additional Family Medical History / Comment(s): skin cancer Mother Family Medical History: Deep Vein Thrombosis (DVT) <Kassidy Torres - Last Filed: 10/15/23 20:29> General Exam Limitations: no limitations General appearance: alert, in no apparent distress Head exam: Present: atraumatic, normocephalic, normal inspection ENT exam: Present: normal exam, mucous membranes moist Neck exam: Present: normal inspection. Absent: tenderness, meningismus, lymphadenopathy Respiratory exam: Present: normal lung sounds bilaterally. Absent: respiratory distress, wheezes, rales, rhonchi, stridor Cardiovascular Exam: Present: regular rate, normal rhythm, systolic murmur. Absent: diastolic murmur, rubs, gallop, clicks GI/Abdominal exam: Present: soft, normal bowel sounds. Absent: distended, tenderness, guarding, rebound, rigid Extremities exam: Present: normal inspection, full ROM, normal capillary refill. Absent: tenderness, pedal edema, joint swelling, calf tenderness Back exam: Present: normal inspection Neurological exam: Present: alert, oriented X3 Psychiatric exam: Present: normal affect, normal mood Skin exam: Present: warm, dry, intact, normal color. Absent: rash <Kassidy Torres - Last Filed: 10/15/23 20:29> Course Vital Signs 10/15/23 10/15/23 15:23 19:38 Temperature 98 F Pulse Rate 96 90 Respiratory 18 14 Rate Blood Pressure 103/72 138/78 O2 Sat by Pulse 99 98 Oximetry Medical Decision Making - Lab Data Result diagrams: 10/15/23 16:28 10/15/23 16:28 <Kassidy Torres - Last Filed: 10/15/23 20:29> - Lab Data Result diagrams: 10/15/23 16:28 10/15/23 16:28 <Cecil Mcfarland - Last Filed: 10/15/23 20:56> - Medical Decision Making Was pt. sent in by a medical professional or institution (, PA, ROD BENDING MACHINE OPERATOR, urgent care, hospital, or [facility]...) When possible be specific @ -[No] Did you speak to anyone other than the patient for history (EMS, parent, family, police, friend...)? What history was obtained from this source @ -[No] Did you review nursing and triage notes (agree or disagree)? Why? @ -[I reviewed and agree with nursing and triage notes] Were old charts reviewed (outside hosp., previous admission, EMS record, old EKG, old radiological studies, urgent care reports/EKG's, [facility] records)? Report findings @ -[No old charts were reviewed] Differential Diagnosis (chest pain, altered mental status, abdominal pain women, abdominal pain men, vaginal bleeding, weakness, fever, dyspnea, syncope, headac he, dizziness, GI bleed, back pain, seizure, CVA, palpatations, mental health, musculoskeletal)? @ -[Differential Chest Pain: Stable Angina, Unstable Angina, STEMI, NSTEMI Aortic Dissection, Pneumothorax, Musculoskeletal, Esophageal Spasm GERD, Cholecystitis, Pancreatitis, Zoster, this is not meant to be an all-inclusive list. ] EKG interpreted by me (3pts min.). @ -[EKG 1950 shows sinus rhythm rate 87, MT 157, QRS 86, QTQTc [id number]] X-rays interpreted by me (1pt min.). @ -[None done] CT interpreted by me (1pt min.). @ -[CT chest angio for PE shows no evidence of pulmonary embolism, multiple lesions on the liver concerning for metastasis CT abdomen pelvis obtained shows multiple lesions of the liver concerning for metastasis with possible primary source of pancreas or biliary] U/S interpreted by me (1pt. min.). @ -[None done] What testing was considered but not performed or refused? (CT, X-rays, U/S, labs)? Why? @ -[None] What meds were considered but not given or refused? Why? @ -[None] Did you discuss the management of the patient with other professionals (professionals i.e. , PA, ROD BENDING MACHINE OPERATOR, lab, RT, psych nurse, secondary social studies teacher, fork repairer, teacher, parole or probation officer, case consultant)? Give summary @ -[No] Was smoking cessation discussed for >3mins.? @ -[No] Was critical care preformed (if so, how long)? @ -[No] Were there social determinants of health that impacted care today? How? (Homelessness, low income, unemployed, alcoholism, drug addiction, transportation, low edu. Level, literacy, decrease access to med. care, [facility], rehab)? @ -[No] Was there de-escalation of care discussed even if they declined (Discuss DNR or withdrawal of care, Hospice)? DNR status @ -[No] What co-morbidities impacted this encounter? (DM, HTN, Smoking, COPD, CAD, Cancer, CVA, ARF, Chemo, Hep., AIDS, mental health diagnosis, sleep apnea, morbid obesity)? @ -[None] Was patient admitted / discharged? Hospital course, mention meds given and route, prescriptions, significant lab abnormalities, going to OR and other pertinent info. @ -[hospital course] Undiagnosed new problem with uncertain prognosis? @ -[No] Drug Therapy requiring intensive monitoring for toxicity (Heparin, Nitro, In sulin, Cardizem)? @ -[No] Were any procedures done? @ -[No] Diagnosis/symptom? @ -[default] Acute, or Chronic, or Acute on Chronic? @ -[default] Uncomplicated (without systemic symptoms) or Complicated (systemic symptoms)? @ -[default] Side effects of treatment? @ -[No] Exacerbation, Progression, or Severe Exacerbation? @ -[No] Poses a threat to life or bodily function? How? (Chest pain, USA, PR, pneumonia, PE, COPD, DKA, ARF, appy, cholecystitis, CVA, Diverticulitis, Homicidal, Suicidal, threat to staff... and all critical care pts) @ -[No] (Kassidy Torres) Patient was admitted and seen by midlevel provider. I updated the admitting physician, Dr. Moyer. He accepted the admission. Requested that I discussed with the patient that we do not have a liver specialist available. I sat down and answered all questions that I could with the patient as well as family members. Discussed that it does appear to be malignancy based on CT imaging. Concern for pancreatic or liver source. We offered admission for pain control. Discussed that typically these are outpatient workups. Patient was in agreement this plan. Understands that we do not have a liver specialist here. We will consult oncology during the stay to establish care but ultimately will likely receive a outpatient workup for this cancer. Patient did express this and understood. She was still in agreement with plan for observation admission. (Cecil Mcfarland) - Lab Data Lab Results 10/15/23 10/15/23 10/15/23 Range/Units 16:28 16:28 16:28 WBC 14.1 H (3.8-10.6) k/uL RBC 4.43 (3.80-5.40) m/uL Hgb 10.7 L (11.4-16.0) gm/dL Hct 32.7 L (34.0-46.0) % MCV 73.8 L (80.0-100.0) fL MCH 24.1 L (25.0-35.0) pg MCHC 32.7 (31.0-37.0) g/dL RDW 13.8 (11.5-15.5) % Plt Count 512 H (150-450) k/uL MPV 7.1 Neutrophils % 79 % Lymphocytes % 11 % Monocytes % 5 % Eosinophils % 4 % Basophils % 0 % Neutrophils # 11.1 H (1.3-7.7) k/uL Lymphocytes # 1.5 (1.0-4.8) k/uL Monocytes # 0.7 (0-1.0) k/uL Eosinophils # 0.6 (0-0.7) k/uL Basophils # 0.1 (0-0.2) k/uL Hypochromasia Slight Microcytosis Slight PT 11.7 (10.0-12.5) sec INR 1.1 (<1.2) APTT 23.7 (22.0-30.0) sec Sodium 135 L (137-145) mmol/L Potassium 4.4 (3.5-5.1) mmol/L Chloride 97 L (98-107) mmol/L Carbon Dioxide 29 (22-30) mmol/L Anion Gap 9 mmol/L BUN 19 H (7-17) mg/dL Creatinine 0.60 (0.52-1.04) mg/dL Est GFR (CKD-EPI)AfAm >90 (>60 ml/min/1.73 sqM) Est GFR (CKD-EPI)NonAf >90 (>60 ml/min/1.73 sqM) Glucose 176 H (74-99) mg/dL Calcium 9.7 (8.4-10.2) mg/dL Magnesium 1.7 (1.6-2.3) mg/dL Total Bilirubin 1.1 (0.2-1.3) mg/dL AST 54 H (14-36) U/L ALT 54 H (4-34) U/L Alkaline Phosphatase 272 H (38-126) U/L Troponin I (0.000-0.034) ng/mL Total Protein 7.2 (6.3-8.2) g/dL Albumin 4.0 (3.5-5.0) g/dL 10/15/23 Range/Units 16:28 WBC (3.8-10.6) k/uL RBC (3.80-5.40) m/uL Hgb (11.4-16.0) gm/dL Hct (34.0-46.0) % MCV (80.0-100.0) fL MCH (25.0-35.0) pg MCHC (31.0-37.0) g/dL RDW (11.5-15.5) % Plt Count (150-450) k/uL MPV Neutrophils % % Lymphocytes % % Monocytes % % Eosinophils % % Basophils % % Neutrophils # (1.3-7.7) k/uL Lymphocytes # (1.0-4.8) k/uL Monocytes # (0-1.0) k/uL Eosinophils # (0-0.7) k/uL Basophils # (0-0.2) k/uL Hypochromasia Microcytosis PT (10.0-12.5) sec INR (<1.2) APTT (22.0-30.0) sec Sodium (137-145) mmol/L Potassium (3.5-5.1) mmol/L Chloride (98-107) mmol/L Carbon Dioxide (22-30) mmol/L Anion Gap mmol/L BUN (7-17) mg/dL Creatinine (0.52-1.04) mg/dL Est GFR (CKD-EPI)AfAm (>60 ml/min/1.73 sqM) Est GFR (CKD-EPI)NonAf (>60 ml/min/1.73 sqM) Glucose (74-99) mg/dL Calcium (8.4-10.2) mg/dL Magnesium (1.6-2.3) mg/dL Total Bilirubin (0.2-1.3) mg/dL AST (14-36) U/L ALT (4-34) U/L Alkaline Phosphatase (38-126) U/L Troponin I <0.012 (0.000-0.034) ng/mL Total Protein (6.3-8.2) g/dL Albumin (3.5-5.0) g/dL Disposition Is patient prescribed a controlled substance at d/c from ED?: No <Kassidy Torres - Last Filed: 10/15/23 20:29> Is patient prescribed a controlled substance at d/c from ED?: No <Cecil Mcfarland - Last Filed: 10/15/23 20:56> Clinical Impression: Chest pain, Abdominal pain, Dyspnea Disposition: ADMITTED IP TO THIS HOSP Condition: Stable Referrals: Adolph Rincon DO [Primary Care Provider] - 1-2 days
--- NOTE | 2023-10-15 19:39 | CT ---
EXAMINATION TYPE: CT chest angio for PE CT DLP: 1122.3 mGycm, Automated exposure control for dose reduction was used. DATE OF EXAM: 10/15/2023 6:50 PM COMPARISON: Chest radiograph from same day. Multiple CTs of the chest with most recent on . CLINICAL INDICATION:Female, 58 years old with history of pain; SOB, abdominal pain and weakness TECHNIQUE/CONTRAST: CTA scan of the thorax is performed with IV Contrast, patient injected with mL of Isovue 370, MIP ford ges are created and reviewed these are created on a separate workstation.. FINDINGS: Pulmonary Artery: There is no evidence for a filling defect within the pulmonary vasculature to sugge st acute pulmonary embolism. The pulmonary artery is of normal size. Lungs/Pleura: No evidence of focal consolidation, pleural effusion or pneumothorax. Airway: Large airways are patent. Heart: Heart is within normal limits for size. Vasculature: No evidence of aortic aneurysm. Mediastinum: Prominent extraluminal right hilar lymph node. No sizable lymph nodes that might be cons idered pathologic by size criteria. Musculoskeletal: No acute osseous abnormalities Soft Tissues: Unremarkable. Lower neck: No significant findings. Upper Abdomen: No significant findings. IMPRESSION: 1. No evidence of pulmonary embolism. 2. Numerous liver metastatic foci. Consider breast, Lung, colon, or other site of primary carcinoma.
--- NOTE | 2023-10-15 19:59 | CT ---
EXAMINATION TYPE: CT abdomen pelvis w con CT DLP: 1122.3 mGycm, Automated exposure control for dose reduction was used. DATE OF EXAM: 10/15/2023 6:50 PM COMPARISON: Abnormal ultrasound 10/06/2023 CLINICAL INDICATION:Female, 58 years old with history of pain; SOB, abdominal pain and weakness TECHNIQUE: Axial CT abdomen pelvis w con;Sagittal and coronal reformats were created on a separate w orkstation. Contrast used:100 ml mL of Isovue 300 with IV Contrast, (none if empty) Oral contrast used: without Oral Contrast (none if empty) FINDINGS: LOWER CHEST: Unremarkable ABDOMEN LIVER: Numerous large liver metastatic foci. GALLBLADDER AND BILE DUCTS: Status post cholecystectomy. Low-density mass occupies noah hepatis sugg esting, felt most likely, biliary or pancreatic primary PANCREAS: Unremarkable. SPLEEN: Unremarkable. ADRENAL GLANDS: Unremarkable. KIDNEYS AND URETERS: No evidence of hydronephrosis or renal calculus. The ureters are unremarkable. PELVIS BLADDER: Unremarkable REPRODUCTIVE: Unremarkable. ABDOMEN & PELVIS STOMACH AND BOWEL: No evidence of bowel obstruction. PERITONEUM/RETROPERITONEUM: No evidence of pneumoperitoneum or free fluid. VASCULATURE: No evidence of aortic aneurysm. MUSCULOSKELETAL: No acute osseous abnormalities LYMPH NODES: No gross evidence for lymphadenopathy. SOFT TISSUE/ABDOMINAL WALL: Unremarkable IMPRESSION: 1. 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
[2023-10-15] MEDS ORDERED: MORPHINE SULFATE 4 MG/ML SYRINGE IV PRN (20:31)
[2023-10-15] MEDS ORDERED: IBUPROFEN 400 MG TAB PO PRN (20:31)
[2023-10-15] MEDS ORDERED: NALOXONE 0.4 MG/ML 1 ML VIAL IV PRN (20:31)
[2023-10-15] MEDS: SODIUM CHLORIDE 0.9% 1,000 ML IV SCH (20:54)
[2023-10-15] MEDS: KETOROLAC 15 MG/ML 1 ML VIAL IVP STA (20:55)
[2023-10-15] MEDS: ORPHENADRINE 30 MG/ML 2 ML VIAL IVP STA (20:55)
[2023-10-16] MEDS: hydrOXYzine pamoate 25 MG CAP PO PRN (00:18)
[2023-10-16] MEDS: lamoTRIgine 100 MG TAB PO SCH ×2 (00:18→08:54)
[2023-10-16] MEDS: traZODone HCL 100 MG TAB PO PRN (00:18)
[2023-10-16 00:41] LABS: Glucose,Whole Blood 191 mg/dL (70-110)
[2023-10-16] MEDS: KETOROLAC 15 MG/ML 1 ML VIAL IVP PRN (06:44)
[2023-10-16 07:39] LABS: Glucose,Whole Blood 161 mg/dL (70-110)
[2023-10-16] MEDS: PANTOPRAZOLE 40 MG TABLET PO SCH (08:54)
[2023-10-16] MEDS: METOPROLOL TARTRATE 12.5 MG TAB PO SCH (08:54)
[2023-10-16] MEDS: MULTIVITAMINS, THERA 1 EACH TAB PO SCH (08:54)
[2023-10-16] MEDS: FERROUS SULFATE 325 MG TAB PO SCH (08:54)
[2023-10-16] MEDS: LACTOBACILLUS ACIDOPHILUS/PECT 1 EACH CAPSULE PO SCH (08:54)
[2023-10-16] MEDS: CALCIUM CARB-VIT D 500 MG-5 MCG TAB PO SCH (08:54)
[2023-10-16] MEDS: LOSARTAN 25 MG TAB PO SCH (08:54)
[2023-10-16] MEDS: ATORVASTATIN 10 MG TAB PO SCH (08:54)
[2023-10-16] MEDS: ARIPiprazole 10 MG TAB PO SCH (08:54)
[2023-10-16] MEDS ORDERED: NON FORMULARY DRUG (Biotin [Biotin Disolve] 5,000 MCG Tablet) PO SCH (09:00)
[2023-10-16 12:41] LABS: Glucose,Whole Blood 133 mg/dL (70-110)
[2023-10-16] MEDS: ENOXAPARIN 40 MG/0.4 ML SYRINGE SQ SCH (14:10)
[2023-10-16] MEDS: NAPROXEN 250 MG TAB PO SCH (14:11)
--- NOTE | 2023-10-16 15:15 | P.CONS ---
History of Present Illness - Reason for Consult Consult date: 10/16/23 Possibly malignancy - Chief Complaint Chest pain - History of Present Illness Ms. Goodwin is a 58-year-old woman with a past medical history significant for atrial flutter, COPD, diabetes mellitus type 2 presenting with increased anorexia. For approximately 8 days prior to presentation, she did note anorexia with nausea. She was having occasional emesis due to the nausea. She notes having had an EGD with esophageal dilation within the last 2 weeks prior to presentation. She did develop chest discomfort in the right side of the chest radiating to the back over the last few days without any dyspnea, hemoptysis, fevers, or chills. She has had 10 to 20 pound weight loss over the past 1 to 2 months. She does endorse smoking 1 pack of cigarettes daily for over 40 years and quit on 09/09/2023. She denies any alcohol abuse. She noted her father had multiple cancers and maternal grandmother had breast cancer diagnosed when she was older, but is unsure of the exact age. EGD on 10/11/2023 noted widely patent gastrojejunal anastomosis without ulcers along with moderate to severe tertiary contractions for presbyesophagus. Last colonoscopy was performed on 07/30/2020 with a total of 3 tubular adenoma was noted in the descending colon and transverse colon along with 2 sessile serrated adenomas in the ileocecal valve and hepatic flexure. Given her signs and symptoms, she presented to the ED for additional management recommendations. On presentation, she was hemodynamically stable and afebrile. CBC noted neutrophilic leukocytosis with WBC 14.1 (ANC 11.1), hemoglobin 10.7 (MCV 73.8), platelets 512. CMP was notable for AST 54, ALT 54, alkaline phosphatase 272, and normal total bilirubin. Creatinine was 0.60. Coagulation panel was normal. CT abdomen/pelvis with contrast on 10/15/2023 noted low-density mass occupying the noah hepatis that was felt to be either biliary or pancreatic in origin along with innumerable large metastatic foci concerning for metastatic disease. CTA of the chest revealed no evidence of pulmonary embolism or evidence of met astatic disease to the lungs. She received 1 L bolus of normal saline along with 50 mg IV Toradol, and 60 mg IV Norflex. Review of Systems 14 point review of systems was conducted pertinent positives and negatives as noted per HPI Past Medical History Past Medical History: Atrial Flutter, Cancer, Diabetes Mellitus, GERD/Reflux, Hyperlipidemia, Hypertension, Osteoarthritis (OA) Additional Past Medical History / Comment(s): migraines, chronic BACK PAIN. DDD, bulging disks, hx Skin CA. GETS NAUSEA WHEN EATING OFTEN, heart murmer, palpitations, hiatal hernia, constipation History of Any Multi-Drug Resistant Organisms: None Reported Past Surgical History: Bariatric Surgery, Breast Surgery, Section, Cholecystectomy, Hernia Repair, Orthopedic Surgery, Uterine Ablation Additional Past Surgical History / Comment(s): RT Knee arthroscopy. KAILEY MULT TOES Surgery. Sinus Surgery. Gastric Bypass 2013. kailey Breast biopsy. CERVICAL CONE biopsy. PAIN PROC BACK, kailey eyelid procedure, incisional hernia repair, Past Anesthesia/Blood Transfusion Reactions: Previous Problems w/ Anesthesia, Motion Sickness Additional Past Anesthesia/Blood Transfusion Reaction / Comm: Woke up once during anesthesia. Mom has difficulty coming out of anesthesia and low b/p. Past Psychological History: Anxiety, Bipolar, Depression, Panic Disorder Additional Psychological History / Comment(s): patient states she has been diagnosed with "Bipolar depression" Identity disorder Smoking Status: Former smoker Past Alcohol Use History: Occasional Additional Past Alcohol Use History / Comment(s): Started Smoking at age 16, 1 ppd. Past Drug Use History: None Reported Additional Drug Use History / Comment(s): . - Past Family History Father History Unknown: Yes Family Medical History: Cancer Additional Family Medical History / Comment(s): skin cancer Mother Family Medical History: Deep Vein Thrombosis (DVT) Medications and Allergies Home Medications Medication Instructions Recorded Confirmed Type Atorvastatin [Lipitor] 10 mg PO DAILY 07/19/17 10/15/23 History hydrOXYzine pamoate [Vistaril] 50 mg PO QID PRN 07/26/20 10/15/23 History traZODone HCL 100 mg PO HS PRN 07/26/20 10/15/23 History Multivitamin [Multivitamins Adult 1 tab PO DAILY 02/27/22 10/15/23 History Gummies] Biotin [Biotin Disolve] 5,000 mcg PO DAILY 09/02/22 10/15/23 History L.acidoph,Paracasei, B.lactis 1 cap PO DAILY 09/02/22 10/15/23 History [Probiotic] Losartan [Cozaar] 25 mg PO QAM 09/02/22 10/15/23 History Metoprolol Tartrate 12.5 mg PO QAM 09/02/22 10/15/23 History Calcium Carbonate/Vitamin D3 2 tab PO DAILY 10/06/23 10/15/23 History [Calcium 500 mg Chewable Tablet] Pantoprazole [Protonix] 40 mg PO BID PRN 10/06/23 10/15/23 History Ferrous Sulfate [Iron (65 MG 325 mg PO DAILY 10/08/23 10/15/23 History Elemental)] ARIPiprazole [Abilify] 10 mg PO DAILY 10/15/23 10/15/23 History Albuterol Sulfate [Albuterol 2 puff PO RT-Q6H PRN 10/15/23 10/15/23 History Sulfate Hfa] lamoTRIgine [LaMICtal] 100 mg PO DAILY 10/15/23 10/15/23 History lamoTRIgine [LaMICtal] 200 mg PO HS 10/15/23 10/15/23 History Allergies Allergy/AdvReac Type Severity Reaction Status Date / Time grass pollen-perennial rye, Allergy ITCHY,WATERY Verified 10/15/23 18:17 standar EYES AND [grass poll-perennial NOSE rye,std] rivaroxaban [From Xarelto] AdvReac See comment Verified 10/15/23 18:17 tape Allergy tears Uncoded 10/15/23 18:17 skin,rash, states "paper tape is ok" Physical Exam Vitals: Vital Signs Temp Pulse Pulse Resp BP BP Pulse Ox 10/16/23 12:38 98.8 F 83 18 116/75 98 10/16/23 07:33 98.0 F 77 18 111/69 97 10/16/23 00:41 99.1 F 92 18 112/75 96 10/15/23 22:10 98 16 126/69 97 10/15/23 19:38 90 14 138/78 98 10/15/23 15:23 98 F 96 18 103/72 99 Intake and Output 10/15/23 10/16/23 10/16/23 22:59 06:59 14:59 Intake Total 800 Balance 800 Intake: Intake, IV Titration 800 Amount Sodium Chloride 0.9% 1, 800 000 ml @ 100 mls/hr IV . Q10H [facility] Rx#:[id number] Other: # Voids 1 Weight 73.936 kg - Constitutional General appearance: cooperative, no acute distress - EENT Eyes: EOMI ENT: other (Pale mucous membranes) - Neck Neck: no lymphadenopathy - Respiratory Respiratory: bilateral: CTA - Cardiovascular Rhythm: regular - Gastrointestinal General gastrointestinal: no distended, hepatomegaly, normal bowel sounds, soft - Integumentary Integumentary: pale - Neurologic Neurologic: CNII-XII intact Results CBC & Chem 7: 10/15/23 16:28 10/15/23 16:28 Labs: Abnormal Lab Results - Last 24 Hours (Table) 10/15/23 10/15/23 10/16/23 Range/Units 16:28 16:28 00:39 WBC 14.1 H (3.8-10.6) k/uL Hgb 10.7 L (11.4-16.0) gm/dL Hct 32.7 L (34.0-46.0) % MCV 73.8 L (80.0-100.0) fL MCH 24.1 L (25.0-35.0) pg Plt Count 512 H (150-450) k/uL Neutrophils # 11.1 H (1.3-7.7) k/uL Sodium 135 L (137-145) mmol/L Chloride 97 L (98-107) mmol/L BUN 19 H (7-17) mg/dL Glucose 176 H (74-99) mg/dL POC Glucose (mg/dL) 191 H (70-110) mg/dL AST 54 H (14-36) U/L ALT 54 H (4-34) U/L Alkaline Phosphatase 272 H (38-126) U/L 10/16/23 10/16/23 Range/Units 07:36 12:39 WBC (3.8-10.6) k/uL Hgb (11.4-16.0) gm/dL Hct (34.0-46.0) % MCV (80.0-100.0) fL MCH (25.0-35.0) pg Plt Count (150-450) k/uL Neutrophils # (1.3-7.7) k/uL Sodium (137-145) mmol/L Chloride (98-107) mmol/L BUN (7-17) mg/dL Glucose (74-99) mg/dL POC Glucose (mg/dL) 161 H 133 H (70-110) mg/dL AST (14-36) U/L ALT (4-34) U/L Alkaline Phosphatase (38-126) U/L Assessment and Plan (1) Liver lesion Current Visit: Yes Status: Acute Code(s): K76.9 - LIVER DISEASE, UNSPECIFIED SNOMED Code(s): 748406909 (2) Abdominal pain Current Visit: Yes Status: Acute Code(s): R10.9 - UNSPECIFIED ABDOMINAL PAIN SNOMED Code(s): 20944288 (3) Neutrophilic leukocytosis Current Visit: Yes Status: Acute Code(s): D72.9 - DISORDER OF WHITE BLOOD CELLS, UNSPECIFIED SNOMED Code(s): 729677493 (4) Microcytic hypochromic anemia Current Visit: Yes Status: Acute Code(s): D50.9 - IRON DEFICIENCY ANEMIA, UNSPECIFIED SNOMED Code(s): 11023208 Plan: #Chest pain, liver lesion -Clinically has been having anorexia, dysguseia, and 10 to 20 pound weight loss over the past 1 to 2 months with development of recent nausea and chest pain -Noted to have mass around the noah hepatis along with innumerable lesions in the liver concerning for metastatic disease -Labs were consistent with hepatocellular and cholestatic transaminitis -I did recommend biopsy of one of the metastatic liver lesions for definitive diagnosis. Consult interventional radiology placed today -AFP, CEA, CA 19-9 ordered #Microcytic anemia, thrombocytosis -Likely iron deficiency anemia secondary to underlying malignancy -Iron studies in addition to vitamin B12/methylmalonic acid, and folic acid ordered #Neutrophilic leukocytosis -Likely secondary to metastatic malignancy -No clinical evidence of infection currently -No additional workup is necessary at this time Israel Marino MD
[2023-10-16 17:26] LABS: Glucose,Whole Blood 230 mg/dL (70-110)
--- NOTE | 2023-10-16 17:38 | P.HPIM ---
History of Present Illness H&P Date: 10/16/23 Chief Complaint: Not feeling well This is a 58-year-old patient, follows Dr. Rincon. Chronic stable medical conditions include GERD, diabetes, hypertension, hyperlipidemia, osteoarthritis, hiatal hernia. Gastrojejunal gastric bypass in 2013. October 11, 2023:, by Dr. Hooks: EGD with rigid dilator 57 [place] to address lower esophageal sphincter and esophageal dysmotility.. Patient now presents with multiple symptoms including some increasing shortness of breath. Also pain in the midthoracic region going around the right side to the front. More so with body movement. Decreased appetite for last to 3 weeks. Having weight loss. Also feeling dizzy. Unsteady no gait. Review of systems: GEN.: Weight loss decreased appetite EYES: None HEENT: None NECK: None RESPIRATORY: Some shortness of breath CARDIOVASCULAR: None GASTROINTESTINAL: None GENITOURINARY: None MUSCULOSKELETAL: [Midthoracic back pain LYMPHATICS: None HEMATOLOGICAL: None PSYCHIATRY: None NEUROLOGICAL: None Social history: Patient started smoking at the age of [age] 1 pack a day. In the past. Alcohol occasionally. Had also done marijuana for pain. Lives alone Physical examination: VITAL SIGNS: 98, 77, 18, 111/69, 97% room air GENERAL: BMI 25.5, laying in bed awake. EYES: Pupils equal. Conjunctiva daniel l. HEENT: External appearance of nose and ears normal, oral cavity grossly normal. NECK: JVD not raised; masses not palpable. HEART: First and second heart sounds are normal; no edema. LUNGS: Respiratory rate normal; clear to auscultation. ABDOMEN: Soft, nontender, liver spleen not palpable, no masses palpable. PSYCH: Alert and oriented x3; mood and affect daniel l. MUSCULOSKELETAL:No Clubbing/cyanosis;muscles-grossly intact NEUROLOGICAL: Cranial nerves grossly intact; no facial asymmetry, power and sensation grossly intact. LYMPHATICS: No lymph nodes palpable in the axilla and neck INVESTIGATIONS, reviewed in the clinical context: October 14: White count 14.1 hemoglobin 10.7 platelets 512 sodium 135 potassium 4.4 creatinine 0.6 blood glucose 176 AST 54 ALT 54 alkaline phosphatase 232 albumin 4 EKG tracing personally reviewed by me-normal sinus rhythm. CT abdomen pelvis with contrast: Numerous large liver metastatic foci. Status postcholecystectomy. Low-density mass occupies noah hepatis. Suggestive of biliary or pancreatic primary. Chest CTA: Negative PE. Numerous liver metastatic foci. Assessment and plan: -Patient presented with multitude of symptoms. CT scan is showing multiple liver metastatic foci. Mass at the noah hepatis. Source unclear. Patient is complaining of dizziness. Also midthoracic pain with radiation. Will order MRI of the brain to rule out metastatic disease. Also x-ray of the thoracic spine. Suspect malignancy. Primary unknown at this point. Oncology consulted -Microcytic anemia suspect iron deficiency from underlying malignancy and nutritional component from decreased oral intake. Blood work has been ordered -Bipolar disorder Abilify. Trazodone. Lamictal -GERD Protonix -Essential hypertension Cozaar. Metoprolol. -COPD no prior smoker Albuterol as needed -Gastrojejunal bypass 2013 Patient does follow with Dr. Agatha Jaeger Care was discussed with the patient. Patient seen by oncology. Given the complexity and severity of patient's condition expect the patient to be in the hospital at least for 2 overnights Past Medical History Past Medical History: Atrial Flutter, Cancer, Diabetes Mellitus, GERD/Reflux, Hyperlipidemia, Hypertension, Osteoarthritis (OA) Additional Past Medical History / Comment(s): migraines, chronic BACK PAIN. DDD, bulging disks, hx Skin CA. GETS NAUSEA WHEN EATING OFTEN, heart murmer, palpitations, hiatal hernia, constipation History of Any Multi-Drug Resistant Organisms: None Reported Past Surgical History: Bariatric Surgery, Breast Surgery, Section, Cholecystectomy, Hernia Repair, Orthopedic Surgery, Uterine Ablation Additional Past Surgical History / Comment(s): RT Knee arthroscopy. KAILEY MULT TOES Surgery. Sinus Surgery. Gastric Bypass 2013. kailey Breast biopsy. CERVICAL CONE biopsy. PAIN PROC BACK, kailey eyelid procedure, incisional hernia repair, Past Anesthesia/Blood Transfusion Reactions: Previous Problems w/ Anesthesia, Motion Sickness Additional Past Anesthesia/Blood Transfusion Reaction / Comment(s): Woke up once during anesthesia. Mom has difficulty coming out of anesthesia and low b/p. Past Psychological History: Anxiety, Bipolar, Depression, Panic Disorder Additional Psychological History / Comment(s): patient states she has been diagnosed with "Bipolar depression" Identity disorder Smoking Status: Former smoker Past Alcohol Use History: Occasional Additional Past Alcohol Use History / Comment(s): Started Smoking at age 16, 1 ppd. Past Drug Use History: None Reported Additional Drug Use History / Comment(s): . - Past Family History Father History Unknown: Yes Family Medical History: Cancer Additional Family Medical History / Comment(s): skin cancer Mother Family Medical History: Deep Vein Thrombosis (DVT) Medications and Allergies Home Medications Medication Instructions Recorded Confirmed Type Atorvastatin [Lipitor] 10 mg PO DAILY 07/19/17 10/15/23 History hydrOXYzine pamoate [Vistaril] 50 mg PO QID PRN 07/26/20 10/15/23 History traZODone HCL 100 mg PO HS PRN 07/26/20 10/15/23 History Multivitamin [Multivitamins Adult 1 tab PO DAILY 02/27/22 10/15/23 History Gummies] Biotin [Biotin Disolve] 5,000 mcg PO DAILY 09/02/22 10/15/23 History L.acidoph,Paracasei, B.lactis 1 cap PO DAILY 09/02/22 10/15/23 History [Probiotic] Losartan [Cozaar] 25 mg PO QAM 09/02/22 10/15/23 History Metoprolol Tartrate 12.5 mg PO QAM 09/02/22 10/15/23 History Calcium Carbonate/Vitamin D3 2 tab PO DAILY 10/06/23 10/15/23 History [Calcium 500 mg Chewable Tablet] Pantoprazole [Protonix] 40 mg PO BID PRN 10/06/23 10/15/23 History Ferrous Sulfate [Iron (65 MG 325 mg PO DAILY 10/08/23 10/15/23 History Elemental)] ARIPiprazole [Abilify] 10 mg PO DAILY 10/15/23 10/15/23 History Albuterol Sulfate [Albuterol 2 puff PO RT-Q6H PRN 10/15/23 10/15/23 History Sulfate Hfa] lamoTRIgine [LaMICtal] 100 mg PO DAILY 10/15/23 10/15/23 History lamoTRIgine [LaMICtal] 200 mg PO HS 10/15/23 10/15/23 History Allergies Allergy/AdvReac Type Severity Reaction Status Date / Time grass pollen-perennial rye, Allergy ITCHY,WATERY Verified 10/15/23 18:17 standar EYES AND [grass poll-perennial NOSE rye,std] rivaroxaban [From Xarelto] AdvReac See comment Verified 10/15/23 18:17 tape Allergy tears Uncoded 10/15/23 18:17 skin,rash, states "paper tape is ok" Physical Exam Vitals: Vital Signs Temp Pulse Pulse Resp BP BP Pulse Ox 10/16/23 12:38 98.8 F 83 18 116/75 98 10/16/23 07:33 98.0 F 77 18 111/69 97 10/16/23 00:41 99.1 F 92 18 112/75 96 10/15/23 22:10 98 16 126/69 97 10/15/23 19:38 90 14 138/78 98 10/15/23 15:23 98 F 96 18 103/72 99 Intake and Output 10/15/23 10/16/23 10/16/23 22:59 06:59 14:59 Intake Total 800 Balance 800 Intake: Intake, IV Titration 800 Amount Sodium Chloride 0.9% 1, 800 000 ml @ 100 mls/hr IV . Q10H [facility] Rx#:[id number] Other: # Voids 1 Weight 73.936 kg Results CBC & Chem 7: 10/15/23 16:28 10/15/23 16:28 Labs: Abnormal Lab Results - Last 24 Hours (Table) 10/15/23 10/15/23 10/16/23 Range/Units 16:28 16:28 00:39 WBC 14.1 H (3.8-10.6) k/uL Hgb 10.7 L (11.4-16.0) gm/dL Hct 32.7 L (34.0-46.0) % MCV 73.8 L (80.0-100.0) fL MCH 24.1 L (25.0-35.0) pg Plt Count 512 H (150-450) k/uL Neutrophils # 11.1 H (1.3-7.7) k/uL Sodium 135 L (137-145) mmol/L Chloride 97 L (98-107) mmol/L BUN 19 H (7-17) mg/dL Glucose 176 H (74-99) mg/dL POC Glucose (mg/dL) 191 H (70-110) mg/dL AST 54 H (14-36) U/L ALT 54 H (4-34) U/L Alkaline Phosphatase 272 H (38-126) U/L 10/16/23 10/16/23 Range/Units 07:36 12:39 WBC (3.8-10.6) k/uL Hgb (11.4-16.0) gm/dL Hct (34.0-46.0) % MCV (80.0-100.0) fL MCH (25.0-35.0) pg Plt Count (150-450) k/uL Neutrophils # (1.3-7.7) k/uL Sodium (137-145) mmol/L Chloride (98-107) mmol/L BUN (7-17) mg/dL Glucose (74-99) mg/dL POC Glucose (mg/dL) 161 H 133 H (70-110) mg/dL AST (14-36) U/L ALT (4-34) U/L Alkaline Phosphatase (38-126) U/L Thrombosis Risk Factor Assmnt - Choose All That Apply Any of the Below Risk Factors Present?: Yes Each Factor Represents 1 point: Age 41-60 years, Obesity (BMI >25) Other Risk Factors: Yes Each Risk Factor Represents 2 Points: Malignancy Each Risk Factor Represents 3 Points: Family history of DVT/PE Thrombosis Risk Factor Assessment Total Risk Factor Score: 7 Thrombosis Risk Factor Assessment Level: High Risk
--- NOTE | 2023-10-16 19:08 | XR ---
EXAMINATION TYPE: XR chest 2V DATE OF EXAM: 10/16/2023 6:16 PM CLINICAL INDICATION:Female, 58 years old with history of Short of breath, ex-smoker; [facility] COMPARISON: Chest radiographs from 09/12/2023 TECHNIQUE: XR chest 2V Frontal and lateral views of the chest. FINDINGS: Lungs/Pleura: There is no evidence of pleural effusion, focal consolidation, or pneumothorax. Pulmonary vascularity: Unremarkable. Heart/mediastinum: Cardiomediastinal silhouette is unremarkable. Musculoskeletal: No acute osseous pathology. Other findings: None Lines/Tubes: IMPRESSION: No acute cardiopulmonary disease/process.
--- NOTE | 2023-10-16 19:12 | XR ---
EXAMINATION TYPE: XR thoracic spine complete DATE OF EXAM: 10/16/2023 2:04 PM CLINICAL INDICATION:Female, 58 years old with history of mid back pain with radiation to left; [facility] COMPARISON: TECHNIQUE: XR thoracic spine complete views of the spine in Frontal and lateral projections. FINDINGS: No evidence of acute fracture. There is no evidence of disk space narrowing or loss of vertebral bod y height. Endplate spondylosis is present. There is normal alignment of the thoracic vertebral ruben s. IMPRESSION: No acute osseous pathology.
[2023-10-16 21:00] LABS: Glucose,Whole Blood 154 mg/dL (70-110)
[2023-10-17 07:39] LABS: Glucose,Whole Blood 155 mg/dL (70-110)
[2023-10-17] MEDS: ONDANSETRON 4 MG TAB PO PRN (10:33)
[2023-10-17 12:06] LABS: Glucose,Whole Blood 171 mg/dL (70-110)
--- NOTE | 2023-10-17 12:23 | P.PN ---
Progress Note - Text Progress Note Date: 10/17/23 Chief Complaint: Not feeling well This is a 58-year-old patient, follows Dr. Rincon. Chronic stable medical conditions include GERD, diabetes, hypertension, hyperlipidemia, osteoarthritis, hiatal hernia. Gastrojejunal gastric bypass in 2013. October 11, 2023:, by Dr. Hooks: EGD with rigid dilator 57 Citizen [place] to address lower esophageal sphincter and esophageal dysmotility.. Patient now presents with multiple symptoms including some increasing shortness of breath. Also pain in the midthoracic region going around the right side to the front. More so with body movement. Decreased appetite for last to 3 weeks. Having weight loss. Also feeling dizzy. Unsteady no gait. October 16: Resting in bed. Some back pain. X-ray of the thoracic spine unremarkable. Pending MRI of the brain. Chest x-ray unremarkable Active Medications Aripiprazole (Aripiprazole 10 Mg Tab) 10 mg PO DAILY [facility] Last Admin: 10/17/23 09:30 Dose: 10 mg Atorvastatin Calcium (Atorvastatin 10 Mg Tab) 10 mg PO DAILY [facility] Last Admin: 10/17/23 09:32 Dose: 10 mg Calcium Carbonate (Calcium Carb-Vit D 500 Mg-5 Mcg Tab) 2 each PO DAILY [facility] Last Admin: 10/17/23 09:32 Dose: 2 each Enoxaparin Sodium (Enoxaparin 40 Mg/0.4 Ml Syringe) 40 mg SQ DAILY [facility] Last Admin: 10/17/23 09:30 Dose: 40 mg Ferrous Sulfate (Ferrous Sulfate 325 Mg Tab) 325 mg PO DAILY [facility] Last Admin: 10/17/23 09:32 Dose: 325 mg Hydroxyzine Pamoate (Hydroxyzine Pamoate 25 Mg Cap) 50 mg PO QID PRN PRN Reason: Anxiety Last Admin: 10/17/23 09:51 Dose: 50 mg Sodium Chloride (Saline 0.9%) 1,000 mls @ 100 mls/hr IV .Q10H [facility] Last Admin: 10/17/23 03:45 Dose: 100 mls/hr Ketorolac Tromethamine (Ketorolac 15 Mg/Ml 1 Ml Vial) 15 mg IVP Q6HR PRN PRN Reason: Moderate Pain (Scale 4 to 6) Stop: 10/18/23 20:32 Last Admin: 10/17/23 08:58 Dose: 15 mg Lactobacillus Acidophilus (Lactobacillus Acidophilus/Pect 1 Each Capsule) 1 each PO DAILY [facility] Last Admin: 10/17/23 09:30 Dose: 1 each Lamotrigine (Lamotrigine 100 Mg Tab) 100 mg PO DAILY [facility] Last Admin: 10/17/23 09:32 Dose: 100 mg Lamotrigine (Lamotrigine 100 Mg Tab) 200 mg PO HS [facility] Last Admin: 10/16/23 22:05 Dose: 200 mg Losartan Potassium (Losartan 25 Mg Tab) 25 mg PO QAM [facility] Last Admin: 10/17/23 09:32 Dose: 25 mg Metoprolol Tartrate (Metoprolol Tartrate 12.5 Mg Tab) 12.5 mg PO QAM [facility] Last Admin: 10/17/23 09:30 Dose: 12.5 mg Multivitamins (Multivitamins, Thera 1 Each Tab) 1 each PO DAILY [facility] Last Admin: 10/17/23 09:30 Dose: 1 each Naloxone HCl (Naloxone 0.4 Mg/Ml 1 Ml Vial) 0.2 mg IV Q2M PRN PRN Reason: Opioid Reversal Naproxen (Naproxen 250 Mg Tab) 250 mg PO TID [facility] Last Admin: 10/17/23 09:30 Dose: 250 mg Ondansetron HCl (Ondansetron 4 Mg Tab) 4 mg PO Q8HR PRN PRN Reason: Nausea And Vomiting Last Admin: 10/17/23 10:33 Dose: 4 mg Pantoprazole Sodium (Pantoprazole 40 Mg Tablet) 40 mg PO BID [facility] Last Admin: 10/17/23 09:32 Dose: 40 mg Trazodone HCl (Trazodone Hcl 100 Mg Tab) 100 mg PO HS PRN PRN Reason: sleep Last Admin: 10/16/23 22:05 Dose: 100 mg Social history: Patient started smoking at the age of [age] 1 pack a day. In the past. Alcohol occasionally. Had also done marijuana for pain. Lives alone Physical examination: VITAL SIGNS: 98.3, 73, 16, 121/77, 99% room air GENERAL: Resting in bed EYES: Pupils equal. Conjunctiva daniel l. HEENT: External appearance of nose and ears normal, oral cavity grossly normal. NECK: JVD not raised; masses not palpable. HEART: First and second heart sounds are normal; no edema. LUNGS: Respiratory rate normal; clear to auscultation. ABDOMEN: Soft, nontender, liver spleen not palpable, no masses palpable. PSYCH: Alert and oriented x3; mood and affect daniel l. MUSCULOSKELETAL:No Clubbing/cyanosis;muscles-grossly intact INVESTIGATIONS, reviewed in the clinical context: October 14: White count 14.1 hemoglobin 10.7 platelets 512 sodium 135 potassium 4.4 creatinine 0.6 blood glucose 176 AST 54 ALT 54 alkaline phosphatase 232 albumin 4 EKG tracing personally reviewed by me-normal sinus rhythm. CT abdomen pelvis with contrast: Numerous large liver metastatic foci. Status postcholecystectomy. Low-density mass occupies noah hepatis. Suggestive of biliary or pancreatic primary. Chest CTA: Negative PE. Numerous liver metastatic foci. Assessment and plan: -Patient presented with multitude of symptoms. CT scan is showing multiple liver metastatic foci. Mass at the noah hepatis. Source unclear. Patient is complaining of dizziness. Also midthoracic pain with radiation. Will order MRI of the brain to rule out metastatic disease. Also x-ray of the thoracic spine. Suspect malignancy. Primary unknown at this point. Oncology consulted -Microcytic anemia suspect iron deficiency from underlying malignancy and nutritional component from decreased oral intake. Blood work has been ordered -Bipolar disorder Abilify. Trazodone. Lamictal -GERD Protonix -Essential hypertension Cozaar. Metoprolol. -COPD no prior smoker Albuterol as needed -Gastrojejunal bypass 2013 Patient does follow with Dr. Agatha Jaeger Pending MRI brain. Follow-up with oncology discussed with patient. Past Medical History Past Medical History: Atrial Flutter, Cancer, Diabetes Mellitus, GERD/Reflux, Hyperlipidemia, Hypertension, Osteoarthritis (OA) Additional Past Medical History / Comment(s): migraines, chronic BACK PAIN. DDD, bulging disks, hx Skin CA. GETS NAUSEA WHEN EATING OFTEN, heart murmer, palpitations, hiatal hernia, constipation History of Any Multi-Drug Resistant Organisms: None Reported Past Surgical History: Bariatric Surgery, Breast Surgery, Section, Cholecystectomy, Hernia Repair, Orthopedic Surgery, Uterine Ablation Additional Past Surgical History / Comment(s): RT Knee arthroscopy. KAILEY MULT TOES Surgery. Sinus Surgery. Gastric Bypass 2013. kailey Breast biopsy. CERVICAL CONE biopsy. PAIN PROC BACK, kailey eyelid procedure, incisional hernia repair, Past Anesthesia/Blood Transfusion Reactions: Previous Problems w/ Anesthesia, Motion Sickness Additional Past Anesthesia/Blood Transfusion Reaction / Comment(s): Woke up once during anesthesia. Mom has difficulty coming out of anesthesia and low b/p. Past Psychological History: Anxiety, Bipolar, Depression, Panic Disorder Additional Psychological History / Comment(s): patient states she has been diagnosed with "Bipolar depression" Identity disorder Smoking Status: Former smoker Past Alcohol Use History: Occasional Additional Past Alcohol Use History / Comment(s): Started Smoking at age 16, 1 ppd. Past Drug Use History: None Reported Additional Drug Use History / Comment(s): .
[2023-10-17 13:05] LABS: Alpha Fetoprotein, Tumor Mkr <3.00 ng/mL (0.00-7.90)
[2023-10-17 13:21] LABS: % Iron Saturation 5.96 (12.00-45.00)
[2023-10-17 13:55] LABS: Cancer Antigen 19-9 >10000.0 U/mL (0.0-34.9)
[2023-10-17] MEDS: SODIUM FERRIC GLUCONAT-SUCROSE 125 MG in SODIUM CHLORIDE 0.9% 100 ML IVPB SCH (14:16)
[2023-10-17] MEDS: PROCHLORPERAZINE INJ 10 MG/2 ML VIAL IVP PRN (15:40)
[2023-10-17 17:07] LABS: Glucose,Whole Blood 152 mg/dL (70-110)
[2023-10-17 20:19] LABS: Glucose,Whole Blood 157 mg/dL (70-110)
[2023-10-18 07:17] LABS: Glucose,Whole Blood 138 mg/dL (70-110)
--- NOTE | 2023-10-18 11:34 | P.PN ---
Subjective Progress Note Date: 10/18/23 Patient resting comfortably in bed. Reporting pain is better controlled. Awaiting biopsy of liver, hopefully will be obtained today. Will speak with IR dept Objective - Vital Signs Vital signs: Vital Signs Temp 98.8 F 10/18/23 07:09 Pulse 89 10/18/23 07:09 Resp 16 10/18/23 08:00 BP 130/82 10/18/23 07:09 Pulse Ox 95 10/18/23 08:19 FiO2 Intake & Output 10/17/23 10/18/23 10/18/23 18:59 06:59 18:59 Intake Total 1200 120 Balance 1200 120 Intake: Intake, IV Titration 1200 Amount Sodium Chloride 0.9% 1, 1200 000 ml @ 100 mls/hr IV . Q10H [facility] Rx#:[id number] Oral 120 Other: Voiding Method Toilet Toilet # Voids 3 - Constitutional General appearance: Present: average body habitus, no acute distress - EENT Eyes: Present: EOMI ENT: Present: hearing grossly normal - Respiratory Details: breathing is even and unlabored - Cardiovascular Details: skin warm and dry - Integumentary Integumentary: Absent: cyanotic - Neurologic Neurologic: Present: CNII-XII intact - Musculoskeletal Musculoskeletal: Present: strength equal bilaterally - Labs CBC & Chem 7: 10/15/23 16:28 10/15/23 16:28 Labs: Abnormal Lab Results - Last 24 Hours (Table) 10/15/23 10/15/23 10/17/23 Range/Units 16:48 16:48 12:04 POC Glucose (mg/dL) 171 H (70-110) mg/dL Iron 18 L (50-170) UG/DL % Saturation 5.96 L (12.00-45.00) Ferritin 476.0 H (10.0-291.0) ng/mL Carcinoembryonic Ag 451.0 H (0.0-4.9) ng/mL CA 19-9 Antigen >81811.0 H (0.0-34.9) U/mL Vitamin B12 2693.0 H (200.0-944.0) pg/mL 10/17/23 10/17/23 10/18/23 Range/Units 17:03 20:16 07:16 POC Glucose (mg/dL) 152 H 157 H 138 H (70-110) mg/dL Iron (50-170) UG/DL % Saturation (12.00-45.00) Ferritin (10.0-291.0) ng/mL Carcinoembryonic Ag (0.0-4.9) ng/mL CA 19-9 Antigen (0.0-34.9) U/mL Vitamin B12 (200.0-944.0) pg/mL Assessment and Plan (1) Abdominal pain Current Visit: Yes Status: Acute Code(s): R10.9 - UNSPECIFIED ABDOMINAL PAIN SNOMED Code(s): 72828922 (2) Chest pain Current Visit: Yes Status: Acute Code(s): R07.9 - CHEST PAIN, UNSPECIFIED SNOMED Code(s): 37355180 (3) Intractable pain Current Visit: Yes Status: Acute Code(s): R52 - PAIN, UNSPECIFIED SNOMED Code(s): 49931949 (4) Liver lesion Current Visit: Yes Status: Acute Code(s): K76.9 - LIVER DISEASE, UNSPECIFIED SNOMED Code(s): 157219815 (5) Microcytic hypochromic anemia Current Visit: Yes Status: Acute Code(s): D50.9 - IRON DEFICIENCY ANEMIA, UNSPECIFIED SNOMED Code(s): 41158900 (6) Neutrophilic leukocytosis Current Visit: Yes Status: Acute Code(s): D72.9 - DISORDER OF WHITE BLOOD CELLS, UNSPECIFIED SNOMED Code(s): 164560761 Plan: #Chest pain, liver lesion -Clinically has been having anorexia, dysguseia, and 10 to 20 pound weight loss over the past 1 to 2 months with development of recent nausea and chest pain -Noted to have mass around the noah hepatis along with innumerable lesions in the liver concerning for metastatic disease -Labs were consistent with hepatocellular and cholestatic transaminitis -I did recommend biopsy of one of the metastatic liver lesions for definitive diagnosis. Consult interventional radiology placed -AFP <3, CEA 451, CA 19-9 >10,000 Discussed lab findings and concerns for metstatic disease. She was agreeable to proceed with further workup/biopsy #Microcytic anemia, thrombocytosis -Likely iron deficiency anemia secondary to underlying malignancy -Iron studies in addition to vitamin B12/methylmalonic acid, and folic acid ordered -IV iron x 4 doses ordered. No vitamin B12 or folate deficiency noted #Neutrophilic leukocytosis -Likely secondary to metastatic malignancy -No clinical evidence of infection currently -No additional workup is necessary at this time Spoke with admitting team, once biopsy obtained, she is cleared for discharge from hem/onc standpoint. Will schedule clinic f/u to discuss pathology and treatment options Attests: I have seen and examined pt, performed H&P, developed impression and plan of care. Discussed with dictator. Agree with documentation, dictated as a scribe.
[2023-10-18 11:55] LABS: Glucose,Whole Blood 133 mg/dL (70-110)
[2023-10-18] MEDS: HYDROmorphone 0.5 MG/0.5 ML SYRINGE IVP STA (12:35)
--- NOTE | 2023-10-18 13:52 | CT ---
EXAMINATION TYPE: CT biopsy liver DATE OF EXAM: 10/18/2023 1:00 PM CLINICAL INDICATION:Female, 58 years old with history of liver biopsy; COMPARISON: 10/15/2023. CT DLP: 1276 mGycm, Automated exposure control for dose reduction was used. Contrast used: mL of , none Oral contrast used: none ATTENDING: Dr. Luis David TECHNIQUE: CT guided percutaneous liver using coaxial method. One or more CT dose reduction strategies were util ized during this examination. Total CT dose 1276 mGycm. FINDINGS: The procedure was explained to the patient including risks of bleeding, bruising, infection, damage t o nearby organs and need for additional therapy including potential surgery. All questions were answ ered and consent was obtained. The previous studies were reviewed. The patient was placed on the CT couch in the supine position. The overlying skin was marked and prepped using sterile method. Timeout was taken per protocol. Follo wing administration of local anesthesia a 17 gauge coaxial needle was introduced on the right hepatic lobe mass. The coaxial needle tip was directed into the mass with CT guidance. Multiple 18 gauge c oaxial biopsies were then obtained. Following the procedure the needle was removed and sterile rosa ssing was applied to the percutaneous site. Post biopsy imaging demonstrated no evidence of hemorrha ge. Patient was taken for postprocedure observation in stable condition. IMPRESSIONS: Status post percutaneous right hepatic lobe mass. mass biopsy as described above. Pathology results p ending.
[2023-10-18] MEDS: LORazepam 1 MG TAB PO ONE (14:40)
[2023-10-18 15:16] VITALS: BMI 25.5
--- NOTE | 2023-10-18 16:44 | MR ---
EXAMINATION TYPE: MR brain wo/w con DATE OF EXAM: 10/18/2023 3:57 PM CLINICAL INDICATION:Female, 58 years old with history of r/o metastasis; H, r/o metastasis COMPARISON: 12/20/2014 TECHNIQUE: Multi planar, multi sequence imaging was performed through the brain including: T1, T2, In version recovery, susceptibility weighted imaging and gradient echo imaging and Diffusion weighted im aging. The patient was then given intravenous contrast and multi planar, T1 fat-saturation images wer e obtained. IV Contrast: 7.5 cc Gadavist FINDINGS: The beverly-white junctions, ventricular system, basal cisterns appear unremarkable. Diffusion-weighted imaging shows no evidence of restricted diffusion to suggest acute/subacute infarct. Intracranial ar terial flow voids are maintained. Midline structures show no abnormality. . The susceptibility weight ed images do not reveal any evidence for micro-hemorrhage. After administration of gadolinium, no abn ormal enhancement is seen. The bone marrow signal is within normal limits. Paranasal sinuses and mastoid air cells: No significant paranasal sinus disease. Visualized orbits: Orbital contents are intact. IMPRESSION: No evidence of intracranial mass, acute/subacute infarct, or abnormal enhancement.
[2023-10-18 17:02] LABS: Glucose,Whole Blood 205 mg/dL (70-110)
--- NOTE | 2023-10-18 18:34 | P.PN ---
Progress Note - Text Progress Note Date: 10/18/23 Chief Complaint: Not feeling well This is a 58-year-old patient, follows Dr. Rincon. Chronic stable medical conditions include GERD, diabetes, hypertension, hyperlipidemia, osteoarthritis, hiatal hernia. Gastrojejunal gastric bypass in 2013. October 11, 2023:, by Dr. Hooks: EGD with rigid dilator 57 [place] to address lower esophageal sphincter and esophageal dysmotility.. Patient now presents with multiple symptoms including some increasing shortness of breath. Also pain in the midthoracic region going around the right side to the front. More so with body movement. Decreased appetite for last to 3 weeks. Having weight loss. Also feeling dizzy. Unsteady no gait. October 16: Resting in bed. Some back pain. X-ray of the thoracic spine unremarkable. Pending MRI of the brain. Chest x-ray unremarkable October 17: Patient seen this morning. Later this morning underwent a liver biopsy. Subsequently MRI of the brain. Was ordered IV iron yesterday. Active Medications Aripiprazole (Aripiprazole 10 Mg Tab) 10 mg PO DAILY [facility] Last Admin: 10/18/23 07:57 Dose: 10 mg Atorvastatin Calcium (Atorvastatin 10 Mg Tab) 10 mg PO DAILY [facility] Last Admin: 10/18/23 07:55 Dose: 10 mg Calcium Carbonate (Calcium Carb-Vit D 500 Mg-5 Mcg Tab) 2 each PO DAILY [facility] Last Admin: 10/18/23 07:55 Dose: 2 each Enoxaparin Sodium (Enoxaparin 40 Mg/0.4 Ml Syringe) 40 mg SQ DAILY [facility] Last Admin: 10/18/23 07:57 Dose: Not Given Hydroxyzine Pamoate (Hydroxyzine Pamoate 25 Mg Cap) 50 mg PO QID PRN PRN Reason: Anxiety Last Admin: 10/18/23 07:55 Dose: 50 mg Sodium Chloride (Saline 0.9%) 1,000 mls @ 100 mls/hr IV .Q10H [facility] Last Admin: 10/18/23 09:52 Dose: 100 mls/hr Ferric Sodium Gluconate 125 mg (/ Sodium Chloride) 110 mls @ 100 mls/hr IVPB DAILY [facility] Stop: 10/20/23 10:05 Last Admin: 10/18/23 09:48 Dose: 100 mls/hr Ketorolac Tromethamine (Ketorolac 15 Mg/Ml 1 Ml Vial) 15 mg IVP Q6HR PRN PRN Reason: Moderate Pain (Scale 4 to 6) Stop: 10/18/23 20:32 Last Admin: 10/18/23 17:40 Dose: 15 mg Lactobacillus Acidophilus (Lactobacillus Acidophilus/Pect 1 Each Capsule) 1 each PO DAILY [facility] Last Admin: 10/18/23 07:56 Dose: 1 each Lamotrigine (Lamotrigine 100 Mg Tab) 100 mg PO DAILY [facility] Last Admin: 10/18/23 07:56 Dose: 100 mg Lamotrigine (Lamotrigine 100 Mg Tab) 200 mg PO HS [facility] Last Admin: 10/17/23 20:08 Dose: 200 mg Losartan Potassium (Losartan 25 Mg Tab) 25 mg PO QAM [facility] Last Admin: 10/18/23 07:55 Dose: 25 mg Metoprolol Tartrate (Metoprolol Tartrate 12.5 Mg Tab) 12.5 mg PO QAM [facility] Last Admin: 10/18/23 07:56 Dose: 12.5 mg Multivitamins (Multivitamins, Thera 1 Each Tab) 1 each PO DAILY [facility] Last Admin: 10/18/23 07:56 Dose: 1 each Naloxone HCl (Naloxone 0.4 Mg/Ml 1 Ml Vial) 0.2 mg IV Q2M PRN PRN Reason: Opioid Reversal Naproxen (Naproxen 250 Mg Tab) 250 mg PO TID [facility] Last Admin: 10/18/23 09:50 Dose: 250 mg Ondansetron HCl (Ondansetron 4 Mg Tab) 4 mg PO Q8HR PRN PRN Reason: Nausea And Vomiting Last Admin: 10/17/23 21:09 Dose: 4 mg Pantoprazole Sodium (Pantoprazole 40 Mg Tablet) 40 mg PO BID [facility] Last Admin: 10/18/23 07:56 Dose: 40 mg Prochlorperazine Edisylate (Prochlorperazine Inj 10 Mg/2 Ml Vial) 5 mg IVP Q8HR PRN PRN Reason: Nausea And Vomiting Last Admin: 10/18/23 01:44 Dose: 5 mg Trazodone HCl (Trazodone Hcl 100 Mg Tab) 100 mg PO HS PRN PRN Reason: sleep Last Admin: 10/17/23 21:10 Dose: 100 mg Social history: Patient started smoking at the age of [age] 1 pack a day. In the past. Alcohol occasionally. Had also done marijuana for pain. Lives alone Physical examination: VITAL SIGNS: 98.3, 85, 16, 106/70, 97% room air GENERAL: Resting in bed EYES: Pupils equal. Conjunctiva daniel l. HEENT: External appearance of nose and ears normal, oral cavity grossly normal. NECK: JVD not raised; masses not palpable. HEART: First and second heart sounds are normal; no edema. LUNGS: Respiratory rate normal; clear to auscultation. ABDOMEN: Soft, nontender, liver spleen not palpable, no masses palpable. PSYCH: Alert and oriented x3; mood and affect daniel l. MUSCULOSKELETAL:No Clubbing/cyanosis;muscles-grossly intact INVESTIGATIONS, reviewed in the clinical context: Iron 18 TIBC 302% saturation 5.96 ferritin 476 CEA antigen increased at 451 CA 19-9 antigen greater [id number], vitamin B12 2693 folate 16.9 Brain MRI: Unremarkable October 14: White count 14.1 hemoglobin 10.7 platelets 512 sodium 135 potassium 4.4 creatinine 0.6 blood glucose 176 AST 54 ALT 54 alkaline phosphatase 232 albumin 4 EKG tracing personally reviewed by me-normal sinus rhythm. CT abdomen pelvis with contrast: Numerous large liver metastatic foci. Status postcholecystectomy. Low-density mass occupies noah hepatis. Suggestive of biliary or pancreatic primary. Chest CTA: Negative PE. Numerous liver metastatic foci. Assessment and plan: -Patient presented with multitude of symptoms. CT scan is showing multiple liver metastatic foci. Mass at the noah hepatis. Source unclear. Patient is complaining of dizziness. Also midthoracic pain with radiation. Will order MRI of the brain to rule out metastatic disease. Also x-ray of the thoracic spine. Suspect malignancy. Primary unknown at this point. Oncology following MRI brain negative Liver biopsy done -Microcytic anemia to include iron deficiency from underlying malignancy and nutritional component from decreased oral intake. IV iron given -Bipolar disorder Abilify. Trazodone. Lamictal -GERD Protonix -Essential hypertension Cozaar. Metoprolol. -COPD no prior smoker Albuterol as needed -Gastrojejunal bypass 2013 Patient does follow with Dr. Agatha Jaeger Patient will be discharged tomorrow. Tired today. Follow-up with oncology outpatient. Past Medical History Past Medical History: Atrial Flutter, Cancer, Diabetes Mellitus, GERD/Reflux, Hyperlipidemia, Hypertension, Osteoarthritis (OA) Additional Past Medical History / Comment(s): migraines, chronic BACK PAIN. DDD, bulging disks, hx Skin CA. GETS NAUSEA WHEN EATING OFTEN, heart murmer, palpitations, hiatal hernia, constipation History of Any Multi-Drug Resistant Organisms: None Reported Past Surgical History: Bariatric Surgery, Breast Surgery, Section, Cholecystectomy, Hernia Repair, Orthopedic Surgery, Uterine Ablation Additional Past Surgical History / Comment(s): RT Knee arthroscopy. KAILEY MULT TOES Surgery. Sinus Surgery. Gastric Bypass 2013. kailey Breast biopsy. CERVICAL CONE biopsy. PAIN PROC BACK, kailey eyelid procedure, incisional hernia repair, Past Anesthesia/Blood Transfusion Reactions: Previous Problems w/ Anesthesia, Motion Sickness Additional Past Anesthesia/Blood Transfusion Reaction / Comment(s): Woke up once during anesthesia. Mom has difficulty coming out of anesthesia and low b/p. Past Psychological History: Anxiety, Bipolar, Depression, Panic Disorder Additional Psychological History / Comment(s): patient states she has been diagnosed with "Bipolar depression" Identity disorder Smoking Status: Former smoker Past Alcohol Use History: Occasional Additional Past Alcohol Use History / Comment(s): Started Smoking at age 16, 1 ppd. Past Drug Use History: None Reported Additional Drug Use History / Comment(s): .
[2023-10-18 20:16] LABS: Glucose,Whole Blood 159 mg/dL (70-110)
[2023-10-19] MEDS: ACETAMINOPHEN TAB 500 MG TAB PO PRN (02:28)
[2023-10-19 07:07] LABS: Glucose,Whole Blood 133 mg/dL (70-110)
[2023-10-19 12:20] LABS: Glucose,Whole Blood 152 mg/dL (70-110)
[2023-10-19 12:39] VITALS: BP 116/76; PULSE 70; RESP 16; TEMP 97.6
--- NOTE | 2023-10-19 18:18 | P.DS ---
Providers Date of admission: 10/15/23 20:55 Expected date of discharge: 10/19/23 Attending physician: Job Moyer Consults: 10/15/23 20:31 Consult Physician Routine Consulting Provider: Marquez Garnica Consult Reason/Comments: ?CA, liver mets Do you want consulting provider notified?: Yes, Notify in am [facility] Course: Chief Complaint: Not feeling well This is a 58-year-old patient, follows Dr. Rincon. Chronic stable medical conditions include GERD, diabetes, hypertension, hyperlipidemia, osteoarthritis, hiatal hernia. Gastrojejunal gastric bypass in 2013. October 11, 2023:, by Dr. Hooks: EGD with rigid dilator 57 [place]ian to address lower esophageal sphincter and esophageal dysmotility.. Patient now presents with multiple symptoms including some increasing shortness of breath. Also pain in the midthoracic region going around the right side to the front. More so with body movement. Decreased appetite for last to 3 weeks. Having weight loss. Also feeling dizzy. Unsteady no gait. October 16: Resting in bed. Some back pain. X-ray of the thoracic spine unremarkable. Pending MRI of the brain. Chest x-ray unremarkable October 17: Patient seen this morning. Later this morning underwent a liver biopsy. Subsequently MRI of the brain. Was ordered IV iron yesterday. October 18: Discussed with patient. She will follow-up with Dr. Calin Marino outpatient. For back pain to use K-pad, naproxen, Tylenol. MRI brain results discussed. Discussed the fact that this is most likely cancer. Further treatment plan depending on biopsy results. Social history: Patient started smoking at the age of [age] 1 pack a day. In the past. Alcohol occasionally. Had also done marijuana for pain. Lives alone Physical examination: VITAL SIGNS: 97.6, 70, 16, 116/76, 97% room air GENERAL: Resting in bed EYES: Pupils equal. Conjunctiva daniel l. HEENT: External appearance of nose and ears normal, oral cavity grossly normal. NECK: JVD not raised; masses not palpable. HEART: First and second heart sounds are normal; no edema. LUNGS: Respiratory rate normal; clear to auscultation. ABDOMEN: Soft, nontender, liver spleen not palpable, no masses palpable. PSYCH: Alert and oriented x3; mood and affect daniel l. MUSCULOSKELETAL:No Clubbing/cyanosis;muscles-grossly intact INVESTIGATIONS, reviewed in the clinical context: Iron 18 TIBC 302% saturation 5.96 ferritin 476 CEA antigen increased at 451 CA 19-9 antigen greater [id number], vitamin B12 2693 folate 16.9 Brain MRI: Unremarkable October 14: White count 14.1 hemoglobin 10.7 platelets 512 sodium 135 potassium 4.4 creatinine 0.6 blood glucose 176 AST 54 ALT 54 alkaline phosphatase 232 albumin 4 EKG tracing personally reviewed by me-normal sinus rhythm. CT abdomen pelvis with contrast: Numerous large liver metastatic foci. Status postcholecystectomy. Low-density mass occupies noah hepatis. Suggestive of biliary or pancreatic primary. Chest CTA: Negative PE. Numerous liver metastatic foci. Assessment and plan: -Patient presented with multitude of symptoms. CT scan is showing multiple liver metastatic foci. Mass at the noah hepatis. Source unclear. Patient is complaining of dizziness. Also midthoracic pain with radiation. Will order MRI of the brain to rule out metastatic disease. Also x-ray of the thoracic spine. Suspect malignancy. Primary unknown at this point. Oncology following MRI brain negative Liver biopsy-results pending Follow-up with Dr. Calin Marino outpatient -Microcytic anemia to include iron deficiency from underlying malignancy and nutritional component from decreased oral intake. IV iron given -Bipolar disorder Abilify. Trazodone. Lamictal -GERD Protonix -Essential hypertension Cozaar. Metoprolol. -COPD no prior smoker Albuterol as needed -Gastrojejunal bypass 2013 Patient does follow with Dr. Agatha Jaeger -Full code Disposition: Home Past Medical History Past Medical History: Atrial Flutter, Cancer, Diabetes Mellitus, GERD/Reflux, Hyperlipidemia, Hypertension, Osteoarthritis (OA) Additional Past Medical History / Comment(s): migraines, chronic BACK PAIN. DDD, bulging disks, hx Skin CA. GETS NAUSEA WHEN EATING OFTEN, heart murmer, palpitations, hiatal hernia, constipation History of Any Multi-Drug Resistant Organisms: None Reported Past Surgical History: Bariatric Surgery, Breast Surgery, Section, Cholecystectomy, Hernia Repair, Orthopedic Surgery, Uterine Ablation Additional Past Surgical History / Comment(s): RT Knee arthroscopy. KAILEY MULT TOES Surgery. Sinus Surgery. Gastric Bypass 2013. kailey Breast biopsy. CERVICAL CONE biopsy. PAIN PROC BACK, kailey eyelid procedure, incisional hernia repair, Past Anesthesia/Blood Transfusion Reactions: Previous Problems w/ Anesthesia, Motion Sickness Additional Past Anesthesia/Blood Transfusion Reaction / Comment(s): Woke up once during anesthesia. Mom has difficulty coming out of anesthesia and low b/p. Past Psychological History: Anxiety, Bipolar, Depression, Panic Disorder Additional Psychological History / Comment(s): patient states she has been diagnosed with "Bipolar depression" Identity disorder Smoking Status: Former smoker Past Alcohol Use History: Occasional Additional Past Alcohol Use History / Comment(s): Started Smoking at age 16, 1 ppd. Past Drug Use History: None Reported Additional Drug Use History / Comment(s): . Plan - Discharge Summary Discharge Rx Participant: No New Discharge Prescriptions: New Naproxen [Naprosyn] 250 mg PO TID PRN #30 tab PRN Reason: Nausea Acetaminophen Tab [Tylenol] 500 mg PO Q6HR PRN tab PRN Reason: Fever And/ Or Pain Ondansetron [Zofran] 4 mg PO Q8HR PRN #30 tab PRN Reason: Nausea Continue Atorvastatin [Lipitor] 10 mg PO DAILY hydrOXYzine pamoate [Vistaril] 50 mg PO QID PRN PRN Reason: Anxiety traZODone HCL 100 mg PO HS PRN PRN Reason: sleep Biotin [Biotin Disolve] 5,000 mcg PO DAILY L.acidoph,Paracasei, B.lactis [Probiotic] 1 cap PO DAILY Ferrous Sulfate [Iron (65 MG Elemental)] 325 mg PO DAILY Albuterol Sulfate [Albuterol Sulfate Hfa] 2 puff PO RT-Q6H PRN PRN Reason: Shortness Of Breath Multivitamin [Multivitamins Adult Gummies] 1 tab PO DAILY Metoprolol Tartrate 12.5 mg PO QAM Pantoprazole [Protonix] 40 mg PO BID PRN PRN Reason: acid reflux Calcium Carbonate/Vitamin D3 [Calcium 500 mg Chewable Tablet] 2 tab PO DAILY ARIPiprazole [Abilify] 10 mg PO DAILY lamoTRIgine [LaMICtal] 100 mg PO DAILY lamoTRIgine [LaMICtal] 200 mg PO HS Changed Losartan [Cozaar] 25 mg PO HS #0 Discharge Medication List Atorvastatin [Lipitor] 10 mg PO DAILY 07/19/17 [History] hydrOXYzine pamoate [Vistaril] 50 mg PO QID PRN 07/26/20 [History] traZODone HCL 100 mg PO HS PRN 07/26/20 [History] Multivitamin [Multivitamins Adult Gummies] 1 tab PO DAILY 02/27/22 [History] Biotin [Biotin Disolve] 5,000 mcg PO DAILY 09/02/22 [History] L.acidoph,Paracasei, B.lactis [Probiotic] 1 cap PO DAILY 09/02/22 [History] Metoprolol Tartrate 12.5 mg PO QAM 09/02/22 [History] Calcium Carbonate/Vitamin D3 [Calcium 500 mg Chewable Tablet] 2 tab PO DAILY 10/06/23 [History] Pantoprazole [Protonix] 40 mg PO BID PRN 10/06/23 [History] Ferrous Sulfate [Iron (65 MG Elemental)] 325 mg PO DAILY 10/08/23 [History] ARIPiprazole [Abilify] 10 mg PO DAILY 10/15/23 [History] Albuterol Sulfate [Albuterol Sulfate Hfa] 2 puff PO RT-Q6H PRN 10/15/23 [History] lamoTRIgine [LaMICtal] 100 mg PO DAILY 10/15/23 [History] lamoTRIgine [LaMICtal] 200 mg PO HS 10/15/23 [History] Acetaminophen Tab [Tylenol] 500 mg PO Q6HR PRN tab 10/19/23 [Rx] Losartan [Cozaar] 25 mg PO HS #0 10/19/23 [Rx] Naproxen [Naprosyn] 250 mg PO TID PRN #30 tab 10/19/23 [Rx] Ondansetron [Zofran] 4 mg PO Q8HR PRN #30 tab 10/19/23 [Rx] Follow up Appointment(s)/Referral(s): Adolph Rincon DO [Primary Care Provider] - 1-2 days (The Office will call you to make an appointent. ) Israel Marino MD [STAFF PHYSICIAN] - 1 Week (The office will call you to make the appointment. Thank you. )
--- NOTE | 2023-10-19 19:38 | P.PN ---
Subjective Progress Note Date: 10/19/23 Principal diagnosis: intractable pain, concern for metastatic malignancy Pt reporting "spasms" in the right abd and through to back post liver biopsy, comes and goes, not persistent or progressive. Pain is manageable on current analgesics. She has received IV iron and tolerated well. reporting mild nausea Objective - Vital Signs Vital signs: Vital Signs Temp 98.4 F 10/19/23 07:00 Pulse 77 10/19/23 07:00 Resp 18 10/19/23 07:00 BP 151/86 10/19/23 07:00 Pulse Ox 95 10/19/23 07:00 FiO2 Intake & Output 10/18/23 10/19/23 10/19/23 18:59 06:59 18:59 Weight 73.936 kg Other: Voiding Method Toilet # Voids 3 3 - Constitutional General appearance: Present: average body habitus, cooperative, no acute distre ss - EENT Eyes: Present: anicteric sclerae, EOMI ENT: Present: hearing grossly normal - Respiratory Details: resp even and unlabored - Cardiovascular Details: well perfused - Peripheral edema leg Peripheral Edema: bilateral: None - Integumentary Integumentary: Present: normal - Neurologic Neurologic: Present: CNII-XII intact - Musculoskeletal Musculoskeletal: Present: strength equal bilaterally - Psychiatric Psychiatric: Present: A&O x's 3, appropriate affect, intact judgment & insight - Labs CBC & Chem 7: 10/15/23 16:28 10/15/23 16:28 Labs: Abnormal Lab Results - Last 24 Hours (Table) 10/18/23 10/18/23 10/18/23 Range/Units 11:54 17:01 20:14 POC Glucose (mg/dL) 133 H 205 H 159 H (70-110) mg/dL 10/19/23 Range/Units 07:06 POC Glucose (mg/dL) 133 H (70-110) mg/dL Assessment and Plan (1) Abdominal pain Status: Acute Code(s): R10.9 - UNSPECIFIED ABDOMINAL PAIN SNOMED Code(s): 76359435 (2) Liver lesion Status: Acute Code(s): K76.9 - LIVER DISEASE, UNSPECIFIED SNOMED Code(s): 826753012 (3) Microcytic hypochromic anemia Status: Acute Code(s): D50.9 - IRON DEFICIENCY ANEMIA, UNSPECIFIED SNOMED Code(s): 20602207 Plan: Chest pain, liver lesion -Symptoms of anorexia, dysguseia, 10 to 20 pound weight loss over the past 1 to 2 months reported, acutely c/o nausea and chest pain -CT of the abdomen and pelvis reporting numerous liver metastatic foci, low- density mass occupies noah hepatitis -Mild transaminitis at this time -S/P liver biopsy, pending path -AFP <3, CEA 451, CA 19-9 >10,000 -Office visit scheduled to review results and discuss options for treatment. Microcytic, hypochromic anemia, mild thrombocytosis -Likely iron deficiency anemia secondary to underlying malignancy -Anemia work up reveals iron of 18, saturation 5.96%, elevated ferritin of 476. Labs most consistent with anemia of inflammation. Likely secondary to malignancy. IV iron x4 has been ordered. Patient has tolerated well. -No vitamin B12 or folate deficiency noted Neutrophilic leukocytosis -Mild, likely secondary to metastatic malignancy -No clinical evidence of infection -Recheck labs at clinic visit
== END 2023-10-19 13:15 | disposition home or self-care (01) | DRG 436 ==
LOC: EC 14:57 → 5NMEDONC 20:54 → OBSVTOIN 20:55 → 5NMEDONC 21:09
PROVIDERS: ADMIT Hospitalist; ATTEND Hospitalist
DX: C78.7 Secondary malignant neoplasm of liver and intrahepatic bile duct (principal); F31.30 Bipolar disorder, current episode depressed, mild or moderate severity, unspecified; D50.9 Iron deficiency anemia, unspecified; E11.9 Type 2 diabetes mellitus without complications; E78.5 Hyperlipidemia, unspecified; K21.9 Gastro-esophageal reflux disease without esophagitis; F41.0 Panic disorder [episodic paroxysmal anxiety]; Z85.828 Personal history of other malignant neoplasm of skin; Z87.891 Personal history of nicotine dependence; D72.828 Other elevated white blood cell count; I10 Essential (primary) hypertension; J44.9 Chronic obstructive pulmonary disease, unspecified; K22.4 Dyskinesia of esophagus; J30.1 Allergic rhinitis due to pollen; K76.89 Other specified diseases of liver; K44.9 Diaphragmatic hernia without obstruction or gangrene; M19.90 Unspecified osteoarthritis, unspecified site; Z79.899 Other long term (current) drug therapy; Z98.84 Bariatric surgery status; Z91.048 Other nonmedicinal substance allergy status; Z88.8 Allergy status to other drugs, medicaments and biological substances; D63.0 Anemia in neoplastic disease
CPT/HCPCS: 36415; 47000; 70553; 71046; 71275; 72072; 74177; 77012; 80053; 82105; 82378; 82607; 82728; 82746; 83540; 83550; 83735; 83921; 84484; 85025; 85610; 85730; 86301; 88307; 88341; 88342; 93005; 94760; 96361; 96374; 96375; 99285

== ENCOUNTER 2023-10-27 20:38 | Observation (INO) | payer MEDICARE, OTHER ==
[2023-10-27] MEDS ORDERED: FUROSEMIDE 10 MG/ML 4 ML VIAL ONE (20:44)
[2023-10-28] MEDS ORDERED: lamoTRIgine 100 MG TAB ONE (00:28)
[2023-10-28] MEDS ORDERED: traZODone HCL 100 MG TAB ONE (00:29)
[2023-10-28] MEDS ORDERED: ATORVASTATIN 10 MG TAB ONE (09:23)
[2023-10-28] MEDS ORDERED: METOPROLOL TARTRATE 25 MG TAB ONE (09:23)
[2023-10-28] MEDS ORDERED: FUROSEMIDE 10 MG/ML 4 ML VIAL ONE (09:24)
[2023-10-28] MEDS ORDERED: LOSARTAN 25 MG TAB ONE (09:24)
[2023-10-28] MEDS ORDERED: PANTOPRAZOLE 40 MG TABLET PO ONE (12:57)
[2023-10-28] MEDS ORDERED: POTASSIUM CHLORIDE ER 20 MEQ TAB.ER PO ONE (12:57)
[2023-10-28] MEDS ORDERED: INSULIN ASPART (NovoLOG) 100 UNIT/ML VIAL SQ ONE (23:59)
[2023-10-28] MEDS ORDERED: ONDANSETRON 4 MG/2 ML VIAL ONE (23:59)
[2023-10-28] MEDS ORDERED: ACETAMINOPHEN TAB 325 MG TAB ONE (23:59)
[2023-10-29] MEDS ORDERED: PANTOPRAZOLE 40 MG TABLET PO ONE (23:59)
[2023-10-29] MEDS ORDERED: lamoTRIgine 100 MG TAB ONE (23:59)
[2023-10-29] MEDS ORDERED: INSULIN ASPART (NovoLOG) 100 UNIT/ML VIAL SQ ONE (23:59)
[2023-10-29] MEDS ORDERED: ENOXAPARIN 40 MG/0.4 ML SYRINGE SQ ONE (23:59)
[2023-10-29] MEDS ORDERED: ONDANSETRON 4 MG/2 ML VIAL ONE (23:59)
[2023-10-29] MEDS ORDERED: traZODone HCL 100 MG TAB ONE (23:59)
[2023-10-29] MEDS ORDERED: glipiZIDE 5 MG TAB ONE (23:59)
[2023-10-29] MEDS ORDERED: LOSARTAN 25 MG TAB ONE (23:59)
[2023-10-29] MEDS ORDERED: FUROSEMIDE 10 MG/ML 4 ML VIAL ONE (23:59)
[2023-10-29] MEDS ORDERED: ATORVASTATIN 10 MG TAB ONE (23:59)
[2023-10-30] MEDS ORDERED: PANTOPRAZOLE 40 MG TABLET PO ONE (09:00)
[2023-10-30] MEDS ORDERED: ONDANSETRON 4 MG/2 ML VIAL ONE (09:00)
[2023-10-30] MEDS ORDERED: INSULIN ASPART (NovoLOG) 100 UNIT/ML VIAL SQ ONE (09:00)
[2023-10-30] MEDS ORDERED: ENOXAPARIN 40 MG/0.4 ML SYRINGE SQ ONE (09:00)
[2023-10-30] MEDS ORDERED: lamoTRIgine 100 MG TAB ONE (09:00)
[2023-10-30] MEDS ORDERED: glipiZIDE 5 MG TAB ONE (09:00)
[2023-10-30] MEDS ORDERED: LOSARTAN 25 MG TAB ONE (09:00)
[2023-10-30] MEDS ORDERED: ACETAMINOPHEN TAB 325 MG TAB ONE (09:00)
--- NOTE | 2023-11-30 09:21 | XR ---
Vianca Goodwin : 1965 EXAMINATION TYPE: XR chest 1V DATE OF EXAM: 10/29/2023 COMPARISON: None available during downtime HISTORY: 58-year-old female shortness of breath and bilateral lower cavity swelling TECHNIQUE: Single frontal view of the chest is obtained. FINDINGS: Heart normal size. There is hazy and patchy density at the periphery of the left base. Rem ainder of the lungs appear clear. IMPRESSION: Some density in the periphery of the left base could represent a small effusion or under lying atelectasis/consolidation.
--- NOTE | 2023-12-08 10:06 | XR ---
Site ID synapse default Patient Pratima Goodwin A ID [id number] Age/Gender: 58Y, F Order # N/A Procedure XR chest 2V Date 10/27/2023 6:14:34 PM EXAMINATION TYPE: Chest X-ray 2 Views DATE OF EXAM: 11/13/2023 8:21 PM COMPARISON: Chest radiographs from 10/16/2023 TECHNIQUE: Chest X-ray 2 Views Frontal and lateral views of the chest. Delay in interpretation due to institution cyber attack. CLINICAL INDICATION: Female, 58 year old with history of shortness of breath/edema; FINDINGS: Lungs/Pleura: There is no evidence of pleural effusion, focal consolidation, or pneumothorax. Pulmonary vascularity: Unremarkable. Heart/mediastinum: Cardiomediastinal silhouette is unremarkable. Musculoskeletal: No acute osseous pathology. IMPRESSION: No acute cardiopulmonary disease/process.
== END 2023-10-30 15:44 | disposition home or self-care (01) ==
LOC: 3SCARD 20:38
PROVIDERS: ADMIT Hospitalist; ATTEND Hospitalist
DX: C22.1 Intrahepatic bile duct carcinoma (principal); E78.5 Hyperlipidemia, unspecified; E11.9 Type 2 diabetes mellitus without complications; I11.0 Hypertensive heart disease with heart failure; I50.9 Heart failure, unspecified; Z87.891 Personal history of nicotine dependence; Z79.899 Other long term (current) drug therapy
CPT/HCPCS: 71045; 71046; 80053; 83880; 84484; 85025; 87636; 93005

== ENCOUNTER 2023-11-05 09:30 | Day surgery (SDC) | payer MEDICARE, OTHER ==
[2023-11-05] MEDS ORDERED: ONDANSETRON 4 MG/2 ML VIAL ONE (09:40)
[2023-11-05] MEDS ORDERED: DEXAMETHASONE SOD PHOSPHATE 4 MG/ML 1 ML VIAL ONE (09:40)
[2023-11-05] MEDS ORDERED: LIDOCAINE 1%-EPI 1:100,000 20 ML VIAL ONE (10:30)
[2023-11-05] MEDS ORDERED: LACTATED RINGERS 1,000 ML BAG ONE (10:30)
[2023-11-05] MEDS ORDERED: LIDOCAINE 1% INJ 10MG/ML (20 ML MDV) ONE (10:37)
[2023-11-05] MEDS ORDERED: PROPOFOL 10 MG/ML 20 ML VIAL IV ONE (10:37)
[2023-11-05] MEDS ORDERED: SUCCINYLCHOLINE CHLORIDE 200 MG/10 ML VIAL IV ONE (10:37)
[2023-11-05] MEDS ORDERED: fentaNYL (PF) 50 MCG/ML 2 ML AMP ONE (10:37)
[2023-11-05] MEDS ORDERED: KETOROLAC 15 MG/ML 1 ML VIAL ONE (10:37)
[2023-11-05] MEDS ORDERED: MIDAZOLAM 2 MG/2 ML VIAL ONE (10:37)
--- NOTE | 2023-12-23 10:36 | FL ---
EXAMINATION TYPE: FL guided central line placemt DATE OF EXAM: 11/30/2023 8:39 AM COMPARISON: Pre Operative Images if available both CT/MRI or plain film CLINICAL INDICATION: Female, 58 years old with history of INSERT PORTACATH IN OR; TECHNIQUE: FL guided central line placemt, multiple fluoroscopic images provided for procedure. Total fluoroscopy time: 0.9 seconds Total submitted images to PACS: 2 DAP: [id number] mGym2 Gycm2 uGym2 cGycm2 or equivalent. FINDINGS: Fluoroscopic imaging for Port-A-Cath insertion no evidence for pneumothorax. Multilevel degeneration changes of the spine. IMPRESSION: 1. No evidence for intraoperative complication. 2. Please see the operative/procedural note for further details. [facility], , 12/23/2023 10:33 AM
--- NOTE | 2024-01-13 15:30 | P.GSHP ---
History of Present Illness H&P Date: 11/05/23 CHIEF COMPLAINT: Liver cancer HISTORY OF PRESENT ILLNESS: The patient is a 58-year-old female diagnosed with metastatic neoplastic process from liver cancer. She needs a Mediport placement for chemotherapy. PAST MEDICAL HISTORY: See list and reviewed PAST SURGICAL HISTORY: See list and reviewed CURRENT MEDICATIONS: See list and reviewed ALLERGIES: See list and reviewed SOCIAL HISTORY: See list and reviewed FAMILY HISTORY: See list and reviewed REVIEW OF ORGAN SYSTEMS: CONSTITUTIONAL: No fevers or chills RESPIRATORY: No pneumonia. No dyspnea on exertion. CARDIOVASCULAR: No recent chest pain. PHYSICAL EXAMINATION: Vital signs: Stable GENERAL: Well developed and in no acute distress. Pleasant. HEENT: No sclera icterus. Extraocular movements grossly intact. Moist buccal mucosa. Head is atraumatic, normocephalic. Hears conversational speech. No nasal drainage. NECK: Supple without lymphadenopathy. No JV distention. CHEST: Non-labored respirations and equal bilateral excursions. CARDIOVASCULAR: Regular rate and rhythm. Palpable 2+ radial pulses. ABDOMEN: Nontender. MUSCULOSKELETAL: No clubbing, cyanosis or edema. NEUROLOGIC: No focal or lateralizing signs. PSYCH: Appropriate affect. Alert and oriented to person, place and time. ASSESSMENT: 1. Liver cancer 2. Need for chemotherapeutic access. PLAN: 1. Port-A-Cath placement for chemotherapy access Past Medical History Past Medical History: Atrial Flutter, Cancer, Diabetes Mellitus, GERD/Reflux, Hyperlipidemia, Hypertension, Osteoarthritis (OA) Additional Past Medical History / Comment(s): migraines, chronic BACK PAIN. DDD, bulging disks, hx Skin CA. GETS NAUSEA WHEN EATING OFTEN, heart murmer, palpitations, hiatal hernia, constipation, History of Any Multi-Drug Resistant Organisms: None Reported Past Surgical History: Bariatric Surgery, Breast Surgery, Section, Cholecystectomy, Hernia Repair, Orthopedic Surgery, Uterine Ablation Additional Past Surgical History / Comment(s): RT Knee arthroscopy. KAILEY MULT TOES Surgery. Sinus Surgery. Gastric Bypass 2013. kailey Breast biopsy. CERVICAL CONE biopsy. PAIN PROC BACK, kailey eyelid procedure, incisional hernia repair, Past Anesthesia/Blood Transfusion Reactions: Previous Problems w/ Anesthesia, Motion Sickness Additional Past Anesthesia/Blood Transfusion Reaction / Comment(s): Woke up once during anesthesia. Mom has difficulty coming out of anesthesia and low b/p. Past Psychological History: Anxiety, Bipolar, Depression, Panic Disorder Smoking Status: Former smoker Past Alcohol Use History: Occasional Past Drug Use History: None Reported - Past Family History Father History Unknown: Yes Family Medical History: Cancer Additional Family Medical History / Comment(s): skin cancer Mother Family Medical History: Deep Vein Thrombosis (DVT) Medications and Allergies Home Medications Medication Instructions Recorded Confirmed Type Atorvastatin [Lipitor] 10 mg PO DAILY 07/19/17 11/24/23 History traZODone HCL 100 mg PO HS PRN 07/26/20 11/24/23 History Multivitamin [Multivitamins Adult 1 tab PO DAILY 02/27/22 11/24/23 History Gummies] Biotin [Biotin Disolve] 10,000 mcg PO DAILY 09/02/22 11/24/23 History Metoprolol Tartrate 12.5 mg PO DAILY 09/02/22 11/24/23 History Calcium Carbonate/Vitamin D3 2 tab PO DAILY 10/06/23 11/24/23 History [Calcium 500 mg Chewable Tablet] Pantoprazole [Protonix] 40 mg PO DAILY PRN 10/06/23 11/24/23 History Ferrous Sulfate [Iron (65 MG 325 mg PO DAILY 10/08/23 11/24/23 History Elemental)] Albuterol Sulfate [Albuterol 2 puff INHALATION RT-Q6H PRN 10/15/23 11/24/23 History Sulfate Hfa] Losartan [Cozaar] 12.5 mg PO DAILY 10/20/23 11/24/23 History Acetaminophen-Codeine 300-30mg 1 tab PO BID PRN 11/16/23 11/24/23 History [Tylenol w/codeine #3] Dapagliflozin Propanediol [Farxiga] 10 mg PO DAILY 11/16/23 11/24/23 History Furosemide [Lasix] 20 mg PO DAILY 11/16/23 11/24/23 History Potassium Chloride ER [K-Dur 10] 10 meq PO DAILY 11/16/23 11/24/23 History glipiZIDE [Glucotrol] 5 mg PO BID 11/16/23 11/24/23 History ARIPiprazole [Abilify] 5 mg PO DAILY #30 tab 11/19/23 11/24/23 Rx Apixaban [Eliquis Starter Pack See Taper PO BID 11/24/23 11/24/23 History (for VTE)] Fluconazole [Diflucan] 150 mg PO Q2D PRN 11/24/23 11/24/23 History HYDROcodone/APAP 5-325MG [[place] 1 tab PO HS 11/24/23 11/24/23 History 5-325] Nystatin [Nystatin Oral Susp] 500,000 unit PO Q4H 11/24/23 11/24/23 History hydrOXYzine pamoate [Vistaril] 50 mg PO QID PRN 11/24/23 11/24/23 History Allergies Allergy/AdvReac Type Severity Reaction Status Date / Time grass pollen-perennial rye, Allergy ITCHY,WATERY Verified 11/24/23 14:33 standar EYES AND [grass poll-perennial NOSE rye,std] rivaroxaban [From Xarelto] AdvReac See comment Verified 11/24/23 14:33 tape Allergy tears Uncoded 11/24/23 14:33 skin,rash, states "paper tape is ok"
--- NOTE | 2024-01-13 15:41 | P.OP ---
Date of Procedure: 01/13/24 Description of Procedure: SURGEON: ASHER DU MD ROTATING EQUIPMENT SPECIALIST: None. PREOPERATIVE DIAGNOSES: 1. Liver cancer, metastatic 2. Need for chemotherapeutic access. 3. History of gastric bypass 4. Tobacco abuse disorder 5. Diabetes type 2, [id number] 6. Hypertensive heart disease 7. Hyperlipidemia 8. Depressive disorder 9. Gastroesophageal reflux disease POSTOPERATIVE DIAGNOSES: 1. Liver cancer, metastatic 2. Need for chemotherapeutic access. 3. History of gastric bypass 4. Tobacco abuse disorder 5. Diabetes type 2, [id number] 6. Hypertensive heart disease 7. Hyperlipidemia 8. Depressive disorder 9. Gastroesophageal reflux disease PROCEDURES PERFORMED: 1. Ultrasound guided central venous access of the right internal jugular venous vein. 2. Fluoroscopic guidance for central venous access right internal jugular vein less than 1 seconds. 3. Placement of right internal jugular power port 6 [place] by [employer], [employer] Plus Port ANESTHESIA: LMA sedation with local. ESTIMATED BLOOD LOSS: 5 mL. SPECIMENS REMOVED: None. COMPLICATIONS: None. FINDINGS: 1. No thrombus encountered along the right carotid artery or internal jugular vein. 2. Access of the right internal jugular vein under ultrasound guidance. 3. Fluoroscopy of less than 9 seconds. INDICATIONS: The patient is a 58-year-old female recently diagnosed with liver cancer. She presents for chemotherapeutic access. Benefits and risks of surgical intervention were described including bleeding, infection, mechanical problems with his port. Informed consent was obtained. DESCRIPTION OR PROCEDURE: Patient was brought into the operating room, laid in supine position. After adequate IV sedation, the chest and right neck were prepped and draped in a standard sterile fashion including the shoulder with ChloraPrep. Timeout protocol was confirmed with the surgical team regarding the patient's name, procedure to be performed including preoperative medications for which she received IV antibiotics. Bilateral SCDs were placed. An ultrasound was used to capture views of the right internal jugular vein including right carotid artery, which was patent and without thrombus along its course. The right IJ was then localized using anesthetic for the skin. A 16 [place] needle was used to access the IJ. A guidewire was advanced into the IJ with dark nonpulsatile venous blood. Two fingerbreadths distal to the clavicle, on the lateral third, a transverse 1.5 to 2 cm incision was deepened into the skin after localizing the skin. A pocket was created for the port. The port on the back table was flushed with heparinized saline and then attached to the catheter tubing. An adapter was fastened to the actual port site over the tubing. The port easily had fit snug into the pocket. A subcutaneous tunneler was placed along the open end of the tubing and brought out through the separate stab incision. Fluoroscopic guidance confirmed no kinking along the tubing and the port site. Next, the J-wire was exchanged for a catheter sheath for which the tubing was cut to 23 cm and then advanced through the catheter sheath. The Peel-away sheath was then removed and the tubing was secured at the junction of the superior vena cava as well as the right atrium. The tubing was found to be crossed however functional. This was all done under fluoroscopic guidance under 1 seconds. Easy pullback as well as return and aspiration was obtained of the port site. The skin incision was closed using layers using 3-0 Vicryl for the subcu followed by 4-0 Monocryl in a running subcuticular fashion. At the stick site this was also reapproximated using 4-0 Monocryl. The incisions were covered with Optifoam, The skin was cleansed and Exofin liquid glue was applied. Optifoam dressing was placed over the port site. A total of 30 mL of local anesthetic was placed. At the end of the procedure, needle, sponge, and instrument count was verified correct by surgical scrub technologist. Heparin lock of 5 mL was placed. The patient was awoken and pain free and taken to the second stage postanesthesia care unit. The patient tolerated the procedure well.
== END 2023-11-05 13:15 ==
LOC: OR 09:30
PROVIDERS: ATTEND Surgery Plastic and Reconstructive Surgery
DX: N20.0 Calculus of kidney
CPT/HCPCS: 77001

== ENCOUNTER 2023-11-07 05:09 | Observation (INO) | payer MEDICARE, OTHER ==
[~2023-11-07 05:09] MED LIST changes: +HYDROmorphone 1 MG/ML 1 ML SYRINGE ONE; -LIDOCAINE 1% (10MG/ML) FOR IV START INTRADERMA PRN
[2023-11-07] MEDS ORDERED: HYDROmorphone 1 MG/ML 1 ML SYRINGE ONE (07:55)
[2023-11-07] MEDS ORDERED: FUROSEMIDE 10 MG/ML 4 ML VIAL ONE ×2 (07:55→23:59)
[2023-11-07] MEDS ORDERED: hydrOXYzine pamoate 25 MG CAP ONE (23:59)
[2023-11-07] MEDS ORDERED: lamoTRIgine 100 MG TAB ONE (23:59)
[2023-11-07] MEDS ORDERED: PANTOPRAZOLE 40 MG/10 ML VIAL ONE (23:59)
[2023-11-07] MEDS ORDERED: traZODone HCL 100 MG TAB ONE (23:59)
[2023-11-08] MEDS ORDERED: HYDROmorphone 0.5 MG/0.5 ML SYRINGE ONE ×2 (03:32→19:55)
[2023-11-08] MEDS ORDERED: IPRATROPIUM-ALBUTEROL 3 ML NEB ONE (16:38)
[2023-11-08] MEDS ORDERED: hydrOXYzine pamoate 25 MG CAP ONE (23:59)
[2023-11-08] MEDS ORDERED: glipiZIDE 10 MG TAB ONE (23:59)
[2023-11-08] MEDS ORDERED: ARIPiprazole 10 MG TAB ONE (23:59)
[2023-11-08] MEDS ORDERED: MULTIVITAMINS, THERA 1 EACH TAB ONE (23:59)
[2023-11-08] MEDS ORDERED: FERROUS SULFATE 325 MG TAB PO ONE (23:59)
[2023-11-08] MEDS ORDERED: FUROSEMIDE 10 MG/ML 4 ML VIAL ONE (23:59)
[2023-11-08] MEDS ORDERED: lamoTRIgine 100 MG TAB ONE (23:59)
[2023-11-08] MEDS ORDERED: traZODone HCL 100 MG TAB ONE (23:59)
[2023-11-08] MEDS ORDERED: PANTOPRAZOLE 40 MG/10 ML VIAL ONE (23:59)
[2023-11-08] MEDS ORDERED: METOPROLOL TARTRATE 12.5 MG TAB ONE (23:59)
[2023-11-08] MEDS ORDERED: ASPIRIN 81 MG ONE (23:59)
[2023-11-08] MEDS ORDERED: ATORVASTATIN 10 MG TAB ONE (23:59)
[2023-11-08] MEDS ORDERED: LOSARTAN 25 MG TAB ONE (23:59)
[2023-11-08] MEDS ORDERED: POTASSIUM CHLORIDE ER 20 MEQ TAB.ER PO ONE (23:59)
[2023-11-09] MEDS ORDERED: HYDROmorphone 0.5 MG/0.5 ML SYRINGE ONE ×3 (01:25→23:59)
[2023-11-09] MEDS ORDERED: IPRATROPIUM-ALBUTEROL 3 ML NEB ONE (05:46)
[2023-11-09] MEDS ORDERED: traZODone HCL 100 MG TAB ONE (23:59)
[2023-11-09] MEDS ORDERED: KETOROLAC 15 MG/ML 1 ML VIAL ONE (23:59)
[2023-11-09] MEDS ORDERED: POTASSIUM CHLORIDE ER 20 MEQ TAB.ER PO ONE (23:59)
[2023-11-09] MEDS ORDERED: FUROSEMIDE 10 MG/ML 4 ML VIAL ONE (23:59)
[2023-11-09] MEDS ORDERED: DAPAGLIFLOZIN PROPANEDIOL 10 MG TABLET ONE (23:59)
[2023-11-09] MEDS ORDERED: MULTIVITAMINS, THERA 1 EACH TAB ONE (23:59)
[2023-11-09] MEDS ORDERED: glipiZIDE 10 MG TAB ONE (23:59)
[2023-11-09] MEDS ORDERED: METOPROLOL TARTRATE 12.5 MG TAB ONE (23:59)
[2023-11-09] MEDS ORDERED: FERROUS SULFATE 325 MG TAB PO ONE (23:59)
[2023-11-09] MEDS ORDERED: hydrOXYzine pamoate 25 MG CAP ONE (23:59)
[2023-11-09] MEDS ORDERED: ATORVASTATIN 10 MG TAB ONE (23:59)
[2023-11-09] MEDS ORDERED: lamoTRIgine 100 MG TAB ONE (23:59)
[2023-11-09] MEDS ORDERED: PANTOPRAZOLE 40 MG/10 ML VIAL ONE (23:59)
[2023-11-09] MEDS ORDERED: ARIPiprazole 10 MG TAB ONE (23:59)
[2023-11-09] MEDS ORDERED: ALBUTEROL HFA INHALER INHALATION ONE (23:59)
[2023-11-09] MEDS ORDERED: ASPIRIN 81 MG ONE (23:59)
[2023-11-09] MEDS ORDERED: CALCIUM CARB-VIT D 500 MG-5 MCG TAB ONE (23:59)
[2023-11-10] MEDS ORDERED: ASPIRIN 81 MG ONE (09:59)
[2023-11-10] MEDS ORDERED: PANTOPRAZOLE 40 MG/10 ML VIAL ONE (09:59)
[2023-11-10] MEDS ORDERED: ATORVASTATIN 10 MG TAB ONE (09:59)
[2023-11-10] MEDS ORDERED: FUROSEMIDE 10 MG/ML 4 ML VIAL ONE (10:00)
[2023-11-10] MEDS ORDERED: POTASSIUM CHLORIDE ER 20 MEQ TAB.ER PO ONE (10:00)
[2023-11-10] MEDS ORDERED: MULTIVITAMINS, THERA 1 EACH TAB ONE (10:00)
[2023-11-10] MEDS ORDERED: FERROUS SULFATE 325 MG TAB PO ONE (10:00)
[2023-11-10] MEDS ORDERED: LOSARTAN 25 MG TAB ONE (10:01)
[2023-11-10] MEDS ORDERED: ALBUTEROL HFA INHALER INHALATION ONE (16:00)
--- NOTE | 2023-11-29 15:14 | CT ---
Patient Vianca Goodwin ID [id number] Order # [id number] CHEST EXAMINATION TYPE: CT chest angio for PE DATE OF EXAM: 11/07/2023 INDICATION: Difficulty in breathing hypoxia and chest pain CT DLP: 282 mGycm, Automated exposure control for dose reduction was used. CONTRAST: Patient injected with 70 mL of Isovue 370. COMPARISON: No comparison available on downtime PACS. TECHNIQUE: CT of the chest is performed on a spiral scan at 2 mm thick sections. Study is performed with intravenous contrast timed for evaluation for pulmonary embolism. This will limit additional po rtions of the evaluation. 3-D MIP images reconstructed by the technologist are reviewed on the compu ter in the coronal and sagittal planes. FINDINGS: No persistent filling defects are evident to suggest an acute nodule measuring 0.7 cm. Series 401 ford ge 60. Pulmonary embolism. No mediastinal or hilar adenopathy enlarged by CT criteria is evident. The ascending aorta diameter at the level of the main pulmonary artery is 8.6 cm. The main pulmonary artery diameter at the bifurcation is 2.5 cm. There is a 1.0 x 1.1 cm density in the posterior medial right apex. Neoplasm not excluded. Follow-up recommended. There is a 0.9 cm nodule posterior medial left lung base. Series 401 image 92. There is a 0.7 cm right hilar nodule, series 401 image 60. Small nodules in the posterior right apex. Series 4 06 image 20. There is a nodule in the posterior left lung, series 406 image 40. There is normal densi ty adjacent left mediastinal border. Image 70 There is some increased density in the posterior lateral left lower lung field measuring 1.9 x 0.9 cm . This is nonspecific. Infiltrate or mass could be considered. Some mild compressive atelectasis within the dependent portions of the lung bases bilaterally. Limited CT sections were through the upper abdomen. Multiple scattered hypodensities are within the liver. Caudate lobe appears to be completely hypodense and enlarged. Some distortion of the hepatic c ortical margin is evident. The liver is enlarged. Findings are suspicious for multiple metastatic les ions. IMPRESSION: 1. No acute pulmonary embolism 2. Scattered small nodules within the bilateral lung jaramillo suspicious for metastatic disease. Additi onal workup recommended. 3. Multiple prominent ill-defined hypodensities throughout both lobes of the liver, suspicious for m etastatic disease.
--- NOTE | 2023-12-08 10:33 | US ---
EXAMINATION TYPE: US abdomen limited DATE OF EXAM: 11/09/2023 COMPARISON: NONE CLINICAL INDICATION: Tension. TECHNIQUE: Four-quadrant ultrasound FINDINGS: No evidence of ascites within Abdomen IMPRESSION: No evidence for ascites
--- NOTE | 2023-12-16 14:44 | CONS ---
CONSULTATION The patient is on [address] [place] [address], room 637. HISTORY OF PRESENT ILLNESS: Ms. Goodwin is a 58-year-old female with past medical history significant for gastric bypass, type 2 diabetes mellitus, hypertension, and bipolar disorder, recently diagnosed with cholangiocarcinoma. She was initially seen in consultation at [facility] on 10/15/2023, presenting with abdominal pain, nausea, and anorexia. EGD, 10/11/2023, noted widely patent gastrojejunal anastomosis without ulcerations along with moderate to severe tertiary contractions for presbyesophagus. CT AP with contrast, 10/15/2023, noted low-density mass occupying the noah hepatis, felt to be either biliary or pancreatic in origin with innumerable large metastatic foci in the liver concerning for metastatic disease. CTA of the chest revealed evidence of metastatic disease to the lungs. CT-guided liver biopsy, 10/18/2023, noted adenocarcinoma, positive staining for pancytokeratin, CK7, MOC-31. CA19-9 was greater than 10,000. CEA 451. AFP less than 3. Iron deficiency anemia also noted, status post 4 doses of IV iron. Discharged on 10/19/2023 with plans for port placement and palliative chemotherapy treatment to be initiated. She was readmitted on 10/28/2023 with lower extremity edema that improved with Lasix. Discharged 10/30/2023. She had a port placed on 11/05/2023. Over the last 2 days, the patient reported progressive shortness of breath with worsening swelling in her legs. She also noted orange urine. CK was negative for PE. Troponin elevated. She is on 2 L of nasal cannula with only mildly labored breathing at rest. The patient is still having labored breathing with ambulation. No fevers, chills, nausea, or vomiting. She does have some abdominal distention. The swelling in her legs is better since admission. PAST MEDICAL HISTORY: 1. Metastatic cholangiocarcinoma. 2. Hypertensive heart disease. 3. Type 2 diabetes mellitus. 4. GERD. 5. Hyperlipidemia. 6. General anxiety disorder. 7. Bipolar disorder. PAST SURGICAL HISTORY: 1. Eyelid surgery. 2. Bilateral breast biopsies. 3. Sinus surgery. 4. Uterine ablation. 5. Skin cancer excision. 6. Cholecystectomy. 7. Hernia repair. 8. Right knee arthroscopy. 9. Right and left foot surgery. 10.Gastric bypass and section. SOCIAL HISTORY: The patient is a former smoker, starting in 1990, quitting in 2023, approximately 1 pack per day. No alcohol or recreational drug use. The patient is , lives in an independent house. MEDICATIONS: From office chart: 1. Abilify 10 mg daily. 2. Albuterol inhaler every 6 hours as needed. 3. Cozaar 25 mg at bedtime. 4. Hydroxyzine 4 times a day as needed for itching. 5. Ferrous sulfate 1 tablet daily. 6. Lamictal 100 mg daily in the morning, 200 mg at bedtime. 7. Lasix 20 mg daily. 8. Lipitor 10 mg daily. 9. Metoprolol 12.5 mg daily. 10.Several other multivitamins. REVIEW OF SYSTEMS: Fourteen-point review of systems is negative except as stated above. PHYSICAL EXAMINATION: GENERAL: The patient is a well-developed, fairly well nourished, in mild distress, alert and oriented x3. HEENT: Normocephalic, atraumatic, anicteric sclerae. Trachea is midline. No palpable cervical, supraclavicular, or axillary lymphadenopathy. LUNGS: Bilateral breath sounds are clear to auscultation. Respiratory effort is mildly labored at rest. Chest expansion appears symmetrical. ABDOMEN: Mildly distended, tenderness in the periumbilical area. Small to moderate amount of ascites suspected. Bowel sounds are noted. EXTREMITIES: Bilateral lower extremity edema is trace. NEUROLOGIC: The patient is grossly intact. No gross focal or motor neuro deficits. PSYCHIATRIC: Psychologically, the patient is appropriate in mood and affect. ASSESSMENT: 1. Congestive heart failure. 2. Metastatic cholangiocarcinoma. PLAN: Cardiology is consulted for congestive heart failure. The patient has been started on medications with some improvement. Suspect there is some shunting causing some shortness of breath because of the extensive liver disease as well as ascites that may be putting pressure on the diaphragm. Ultrasound-guided paracentesis has been ordered. Requesting cytology on ascitic fluid. The patient has had port placed for treatment. We are still pending insurance authorization for clearance for chemotherapy. The patient will be contacted to start treatment once the authorization is received. Follow up with Medical Oncology after the start of treatment. MMODL / IJN: [id number] /
== END 2023-11-10 17:40 | disposition home or self-care (01) ==
LOC: 6NMEDSUR 05:09
PROVIDERS: ADMIT Hospitalist; ATTEND Hospitalist
DX: C24.0 Malignant neoplasm of extrahepatic bile duct (principal); C78.7 Secondary malignant neoplasm of liver and intrahepatic bile duct; I21.A1 Myocardial infarction type 2; R18.8 Other ascites; E11.9 Type 2 diabetes mellitus without complications; F31.9 Bipolar disorder, unspecified; E78.5 Hyperlipidemia, unspecified; J96.11 Chronic respiratory failure with hypoxia; I11.0 Hypertensive heart disease with heart failure; I50.33 Acute on chronic diastolic (congestive) heart failure; D64.9 Anemia, unspecified; K21.9 Gastro-esophageal reflux disease without esophagitis; F41.1 Generalized anxiety disorder; J44.9 Chronic obstructive pulmonary disease, unspecified; Z85.828 Personal history of other malignant neoplasm of skin; Z87.891 Personal history of nicotine dependence; Z98.84 Bariatric surgery status; Z79.82 Long term (current) use of aspirin; Z79.899 Other long term (current) drug therapy
CPT/HCPCS: 71046; 71275; 76705; 93005; 94640

== ENCOUNTER 2023-11-16 10:47 | Inpatient (IN) | payer MEDICARE, OTHER ==
[2023-11-16] MEDS: IPRATROPIUM-ALBUTEROL 3 ML NEB INHALATION STA (11:52)
--- NOTE | 2023-11-16 11:59 | XR ---
EXAMINATION TYPE: XR chest 2V DATE OF EXAM: 11/16/2023 COMPARISON: 10/16/2023, 10/27/2023 HISTORY: 58 year-old female shortness of breath, edema TECHNIQUE: PA and lateral views FINDINGS: Heart normal size. Interstitial density remains similar from prior exam. Interval aspect of the right anterior chest wall injection port with catheter tip at the lower SVC. No progressive consolidation or pleural effusion. Coils related to prior mesh repair in the mid abdomen. Cholecystectomy clips. IMPRESSION: Interstitial densities remain similar, possible bronchitis or asthma. Correlate to exclude atypical p neumonias.
--- NOTE | 2023-11-16 12:04 | ED ---
General Adult HPI - General Chief complaint: Shortness of Breath Stated complaint: YASSINE Time Seen by Provider: 11/16/23 10:52 Source: patient, RN notes reviewed Mode of arrival: wheelchair Limitations: no limitations - History of Present Illness Initial comments: 58-year-old female presents emergency department with chief complaint of shortness of breath. Patient contacted PCP sent in for evaluation. She states that she has been in the hospital for CHF, liver cancer. Patient states that she was scheduled to see her oncologist today to figure out next plan. Patient states that she does not have at home oxygen and states that her pulse ox was in the 80s. She did use her incentive spirometer, inhaler with no significant changes. Patient states she does feel more short of breath than usual she has mild leg swelling she is wearing compression stockings. Patient states it is worse with any exertion she states she has very minimal strength. - Related Data Home Medications Medication Instructions Recorded Confirmed Atorvastatin [Lipitor] 10 mg PO DAILY 07/19/17 11/16/23 hydrOXYzine pamoate [Vistaril] 50 mg PO QID PRN 07/26/20 11/16/23 traZODone HCL 100 mg PO HS PRN 07/26/20 11/16/23 Multivitamin [Multivitamins Adult 1 tab PO DAILY 02/27/22 11/16/23 Gummies] Biotin [Biotin Disolve] 10,000 mcg PO DAILY 09/02/22 11/16/23 Metoprolol Tartrate 12.5 mg PO DAILY 09/02/22 11/16/23 Calcium Carbonate/Vitamin D3 2 tab PO DAILY 10/06/23 11/16/23 [Calcium 500 mg Chewable Tablet] Pantoprazole [Protonix] 40 mg PO DAILY PRN 10/06/23 11/16/23 Ferrous Sulfate [Iron (65 MG 325 mg PO DAILY 10/08/23 11/16/23 Elemental)] ARIPiprazole [Abilify] 10 mg PO DAILY 10/15/23 11/16/23 Albuterol Sulfate [Albuterol 2 puff PO RT-Q6H PRN 10/15/23 11/16/23 Sulfate Hfa] lamoTRIgine [LaMICtal] 150 mg PO DAILY 10/15/23 11/16/23 lamoTRIgine [LaMICtal] 200 mg PO HS 10/15/23 11/16/23 Losartan [Cozaar] 12.5 mg PO DAILY 10/20/23 11/16/23 Acetaminophen-Codeine 300-30mg 1 tab PO BID PRN 11/16/23 11/16/23 [Tylenol w/codeine #3] Dapagliflozin Propanediol [Farxiga] 10 mg PO DAILY 11/16/23 11/16/23 Furosemide [Lasix] 20 mg PO DAILY 11/16/23 11/16/23 Potassium Chloride ER [K-Dur 10] 10 meq PO DAILY 11/16/23 11/16/23 glipiZIDE [Glucotrol] 5 mg PO BID 11/16/23 11/16/23 Allergies Allergy/AdvReac Type Severity Reaction Status Date / Time grass pollen-perennial rye, Allergy ITCHY,WATERY Verified 11/16/23 14:55 standar EYES AND [grass poll-perennial NOSE rye,std] rivaroxaban [From Xarelto] AdvReac See comment Verified 11/16/23 14:55 tape Allergy tears Uncoded 11/16/23 14:55 skin,rash, states "paper tape is ok" Review of Systems ROS Statement: Those systems with pertinent positive or pertinent negative responses have been documented in the HPI. ROS Other: All systems not noted in ROS Statement are negative. Past Medical History Past Medical History: Atrial Flutter, Cancer, Diabetes Mellitus, GERD/Reflux, Hyperlipidemia, Hypertension, Osteoarthritis (OA) Additional Past Medical History / Comment(s): migraines, chronic BACK PAIN. DDD, bulging disks, hx Skin CA. GETS NAUSEA WHEN EATING OFTEN, heart murmer, palpitations, hiatal hernia, constipation, History of Any Multi-Drug Resistant Organisms: None Reported Past Surgical History: Bariatric Surgery, Breast Surgery, Section, Cholecystectomy, Hernia Repair, Orthopedic Surgery, Uterine Ablation Additional Past Surgical History / Comment(s): RT Knee arthroscopy. KAILEY MULT TOES Surgery. Sinus Surgery. Gastric Bypass 2013. kailey Breast biopsy. CERVICAL CONE biopsy. PAIN PROC BACK, kailey eyelid procedure, incisional hernia repair, Past Anesthesia/Blood Transfusion Reactions: Previous Problems w/ Anesthesia, Motion Sickness Additional Past Anesthesia/Blood Transfusion Reaction / Comment(s): Woke up once during anesthesia. Mom has difficulty coming out of anesthesia and low b/p. Past Psychological History: Anxiety, Bipolar, Depression, Panic Disorder Smoking Status: Former smoker Past Alcohol Use History: Occasional Past Drug Use History: None Reported - Past Family History Father History Unknown: Yes Family Medical History: Cancer Additional Family Medical History / Comment(s): skin cancer Mother Family Medical History: Deep Vein Thrombosis (DVT) General Exam Limitations: no limitations General appearance: alert, in no apparent distress Head exam: Present: atraumatic, normocephalic, normal inspection ENT exam: Present: normal exam, mucous membranes moist Neck exam: Present: normal inspection. Absent: tenderness, meningismus, lymphadenopathy Respiratory exam: Present: wheezes, rales, decreased breath sounds. Absent: normal lung sounds bilaterally, respiratory distress, rhonchi, stridor Cardiovascular Exam: Present: normal rhythm, tachycardia, normal heart sounds. Absent: systolic murmur, diastolic murmur, rubs, gallop, clicks Extremities exam: Present: pedal edema Course Vital Signs 11/16/23 11/16/23 11/16/23 10:47 11:51 11:56 Temperature 97.8 F Pulse Rate 126 H 103 H Respiratory 18 20 Rate Blood Pressure 93/64 O2 Sat by Pulse 90 L Oximetry 11/16/23 11/16/23 11/16/23 12:01 12:05 13:18 Temperature 98.2 F Pulse Rate 102 H 102 H 103 H Respiratory 20 18 Rate Blood Pressure 94/59 104/63 O2 Sat by Pulse 98 94 L Oximetry 11/16/23 14:17 Temperature Pulse Rate 103 H Respiratory 20 Rate Blood Pressure 95/59 O2 Sat by Pulse 97 Oximetry EKG Findings - EKG Comments: EKG Findings:: EKG performed at 11: 10 sinus tachycardia rate of 115 VT 141 QRS 100 QT/QTc 247/342 - EKG Results: EKG: interpreted by ERMD Medical Decision Making - Medical Decision Making Was pt. sent in by a medical professional or institution (, PA, TELESALES TEAM LEADER, urgent care, hospital, or penitentiary...) When possible be specific @ -No Did you speak to anyone other than the patient for history (EMS, parent, family, police, friend...)? What history was obtained from this source @ -PCP Did you review nursing and triage notes (agree or disagree)? Why? @ -I reviewed and agree with nursing and triage notes Were old charts reviewed (outside hosp., previous admission, EMS record, old EKG, old radiological studies, urgent care reports/EKG's, penitentiary records)? Report findings @ -Reviewed prior chest x-ray, EKG Differential Diagnosis (chest pain, altered mental status, abdominal pain women, abdominal pain men, vaginal bleeding, weakness, fever, dyspnea, syncope, headache, dizziness, GI bleed, back pain, seizure, CVA, palpatations, mental health, musculoskeletal)? @ -[Differential Dyspnea: Coronary syndrome, arrhythmia, tamponade, asthma, COPD, pulmonary embolism, pneumonia, pneumothorax, pulmonary effusion, anaphylaxis, diabetic ketoacidosis, flailed chest, pulmonary contusion, diaphragmatic rupture, anemia, neur omuscular, this is not meant to be an all-inclusive list. EKG interpreted by me (3pts min.). @ -As above X-rays interpreted by me (1pt min.). @ -Chest x-ray shows bilateral pneumonia CT interpreted by me (1pt min.). @CT angio of the chest showing pulmonary embolism possible right heart strain, bilateral atelectasis versus pneumonia U/S interpreted by me (1pt. min.). @ -None done What testing was considered but not performed or refused? (CT, X-rays, U/S, labs)? Why? @ -None What meds were considered but not given or refused? Why? @ -None Did you discuss the management of the patient with other professionals (professionals i.e. , PA, TELESALES TEAM LEADER, lab, RT, psych nurse, social media senior associate, business lawyer, teacher, parole hearing officer, case management manager)? Give summary @ -Dr. Moyer for admission, Dr. Turner on-call for EKOS Was smoking cessation discussed for >3mins.? @ -No Was critical care preformed (if so, how long)? @ -5 minutes Were there social determinants of health that impacted care today? How? (Homelessness, low income, unemployed, alcoholism, drug addiction, transportation, low edu. Level, literacy, decrease access to med. care, usp, rehab)? @ -No Was there de-escalation of care discussed even if they declined (Discuss DNR or withdrawal of care, Hospice)? DNR status @ -No What co-morbidities impacted this encounter? (DM, HTN, Smoking, COPD, CAD, Cancer, CVA, ARF, Chemo, Hep., AIDS, mental health diagnosis, sleep apnea, morbid obesity)? @ -Cancer Was patient admitted / discharged? Hospital course, mention meds given and route, prescriptions, significant lab abnormalities, going to OR and other p ertinent info. @ -Admitted patient's vomiting of pulmonary embolism, bilateral pneumonia patient was started on Zosyn, azithromycin IV fluids blood culture was drawn, patient does have PE discussed case with admitting physician along with EKOS Dr. Turner on-call recommends echocardiogram which was ordered. Patient was started on heparin will have cardiology, pulmonary and oncology evaluation Undiagnosed new problem with uncertain prognosis? @ -No Drug Therapy requiring intensive monitoring for toxicity (Heparin, Nitro, Insulin, Cardizem)? @ -Heparin Were any procedures done? @ -No Diagnosis/symptom? @ -Pulmonary embolism, pneumonia Acute, or Chronic, or Acute on Chronic? @ -Acute Uncomplicated (without systemic symptoms) or Complicated (systemic symptoms)? @ -Complicated Side effects of treatment? @ -No Exacerbation, Progression, or Severe Exacerbation? @ -No Poses a threat to life or bodily function? How? (Chest pain, [place], [place], pneumonia, PE, COPD, DKA, ARF, appy, cholecystitis, CVA, Diverticulitis, Homicidal, Suicidal, threat to staff... and all critical care pts) @ -yes PE, may cause respiratory failure arrest - Lab Data Result diagrams: 11/16/23 12:00 11/16/23 12:00 Lab Results 11/16/23 11/16/23 11/16/23 Range/Units 12:00 12:00 12:00 WBC 24.1 H (3.8-10.6) k/uL RBC 3.92 (3.80-5.40) m/uL Hgb 9.3 L (11.4-16.0) gm/dL Hct 29.5 L (34.0-46.0) % MCV 75.2 L (80.0-100.0) fL MCH 23.7 L (25.0-35.0) pg MCHC 31.5 (31.0-37.0) g/dL RDW 19.0 H (11.5-15.5) % Plt Count 296 (150-450) k/uL MPV 8.0 Neutrophils % 89 % Lymphocytes % 4 % Monocytes % 4 % Eosinophils % 3 % Basophils % 0 % Neutrophils # 21.3 H (1.3-7.7) k/uL Lymphocytes # 1.0 (1.0-4.8) k/uL Monocytes # 0.9 (0-1.0) k/uL Eosinophils # 0.7 (0-0.7) k/uL Basophils # 0.1 (0-0.2) k/uL Hypochromasia Slight Anisocytosis Slight Microcytosis Moderate PT 13.4 H (10.0-12.5) sec INR 1.3 H (<1.2) APTT 26.5 (22.0-30.0) sec Sodium 132 L (137-145) mmol/L Potassium 3.8 (3.5-5.1) mmol/L Chloride 94 L (98-107) mmol/L Carbon Dioxide 33 H (22-30) mmol/L Anion Gap 5 mmol/L BUN 49 H (7-17) mg/dL Creatinine 1.00 (0.52-1.04) mg/dL Est GFR (CKD-EPI)AfAm 72 (>60 ml/min/1.73 sqM) Est GFR (CKD-EPI)NonAf 63 (>60 ml/min/1.73 sqM) Glucose 136 H (74-99) mg/dL Plasma Lactic Acid Presley (0.7-2.0) mmol/L Calcium 8.4 (8.4-10.2) mg/dL Magnesium 2.3 (1.6-2.3) mg/dL Total Bilirubin 4.3 H (0.2-1.3) mg/dL AST 180 H (14-36) U/L ALT 64 H (4-34) U/L Alkaline Phosphatase 744 H (38-126) U/L Troponin I (0.000-0.034) ng/mL NT-Pro-B Natriuret Pep 794 pg/mL Total Protein 5.9 L (6.3-8.2) g/dL Albumin 2.6 L (3.5-5.0) g/dL 11/16/23 11/16/23 Range/Units 12:00 12:00 WBC (3.8-10.6) k/uL RBC (3.80-5.40) m/uL Hgb (11.4-16.0) gm/dL Hct (34.0-46.0) % MCV (80.0-100.0) fL MCH (25.0-35.0) pg MCHC (31.0-37.0) g/dL RDW (11.5-15.5) % Plt Count (150-450) k/uL MPV Neutrophils % % Lymphocytes % % Monocytes % % Eosinophils % % Basophils % % Neutrophils # (1.3-7.7) k/uL Lymphocytes # (1.0-4.8) k/uL Monocytes # (0-1.0) k/uL Eosinophils # (0-0.7) k/uL Basophils # (0-0.2) k/uL Hypochromasia Anisocytosis Microcytosis PT (10.0-12.5) sec INR (<1.2) APTT (22.0-30.0) sec Sodium (137-145) mmol/L Potassium (3.5-5.1) mmol/L Chloride (98-107) mmol/L Carbon Dioxide (22-30) mmol/L Anion Gap mmol/L BUN (7-17) mg/dL Creatinine (0.52-1.04) mg/dL Est GFR (CKD-EPI)AfAm (>60 ml/min/1.73 sqM) Est GFR (CKD-EPI)NonAf (>60 ml/min/1.73 sqM) Glucose (74-99) mg/dL Plasma Lactic Acid Presley 1.4 (0.7-2.0) mmol/L Calcium (8.4-10.2) mg/dL Magnesium (1.6-2.3) mg/dL Total Bilirubin (0.2-1.3) mg/dL AST (14-36) U/L ALT (4-34) U/L Alkaline Phosphatase (38-126) U/L Troponin I 0.774 H* (0.000-0.034) ng/mL NT-Pro-B Natriuret Pep pg/mL Total Protein (6.3-8.2) g/dL Albumin (3.5-5.0) g/dL Critical Care Time Critical Care Time: Yes Total Critical Care Time: 35 Disposition Clinical Impression: Pulmonary embolism, Pneumonia, Acute hypoxic respiratory failure, Liver cancer Disposition: ADMITTED IP TO THIS HOSP Condition: Serious Time of Disposition: 14:30
[2023-11-16 12:27] LABS: Anisocytosis Slight; Basophils # (A) 0.1 k/uL (0-0.2); Basophils % (A) 0 %; Eosinophils # (A) 0.7 k/uL (0-0.7); Eosinophils % (A) 3 %; HCT 29.5 % (34.0-46.0); HGB 9.3 gm/dL (11.4-16.0); Hypochromasia Slight; Lymphocytes % (A) 4 %; MCH 23.7 pg (25.0-35.0); MCHC 31.5 g/dL (31.0-37.0); MCV 75.2 fL (80.0-100.0); Microcytosis Moderate; Monocytes # (A) 0.9 k/uL (0-1.0); Monocytes % (A) 4 %; Neutrophils # (A) 21.3 k/uL (1.3-7.7); Neutrophils % (A) 89 %; Platelet Count 296 k/uL (150-450); RBC 3.92 m/uL (3.80-5.40); WBC 24.1 k/uL (3.8-10.6)
[2023-11-16 12:34] LABS: ALT 64 U/L (4-34); AST 180 U/L (14-36); African American GFR (CKD) 72 (>60 ml/min/1.73 sqM); Albumin 2.6 g/dL (3.5-5.0); Alkaline Phosphatase 744 U/L (38-126); Anion Gap 5 mmol/L; Blood Urea Nitrogen 49 mg/dL (7-17); Calcium 8.4 mg/dL (8.4-10.2); Carbon Dioxide 33 mmol/L (22-30); Chloride 94 mmol/L (98-107); Glucose 136 mg/dL (74-99); Magnesium 2.3 mg/dL (1.6-2.3); Non-African American GFR(CKD) 63 (>60 ml/min/1.73 sqM); Potassium 3.8 mmol/L (3.5-5.1); Sodium 132 mmol/L (137-145); Total Bilirubin 4.3 mg/dL (0.2-1.3); Total Protein 5.9 g/dL (6.3-8.2)
[2023-11-16 12:43] LABS: INR 1.3 (<1.2); NT-Pro-B-Type Natriuretic Pept 794 pg/mL; Partial Thromboplastin Time 26.5 sec (22.0-30.0); Prothrombin Time 13.4 sec (10.0-12.5)
[2023-11-16] MEDS: MORPHINE SULFATE 2 MG/ML SYRINGE IVP ONE (13:28)
[2023-11-16] MEDS: SODIUM CHLORIDE 0.9% 500 ML 500 ML IV STA (13:28)
--- NOTE | 2023-11-16 14:11 | CT ---
EXAMINATION TYPE: CT chest angio for PE DATE OF EXAM: 11/16/2023 COMPARISON: 10/15/2023 HISTORY: SOB, recent cancer diagnosis, staging CT DLP: 229.1 mGycm Automated exposure control for dose reduction was used. CONTRAST: CT Chest for pulmonary embolism performed with with IV Contrast, patient injected with 100 mL of Isov ue 370. FINDINGS: LUNGS: There are multiple bilateral pulmonary nodules suspicious for metastatic disease. Bilateral lo wer lobe atelectasis or infiltrate. No sizable pleural effusion or pneumothorax. Underlying mild emph ysematous changes. MEDIASTINUM: Severely limited exam due to artifact. However findings are suspicious for a filling def ect within the left upper lobe branch image 49 series 401 and acute pulmonary embolism. Additionally cannot exclude distal emboli in the right lower lobe image 87. Right ventricle the left ventricle rat io is 1 borderline for RV strain. The heart is enlarged. Trace pericardial fluid. Mild atheroscleroti c change aorta. Borderline mediastinal and hilar lymphadenopathy. OTHER: Mediport catheter is noted and partially included in the [id number]. Tip of the catheter i s not well seen may be extending cephalad correlate with position. Liver is enlarged with the innumer able hepatic metastases. Thickening of the left adrenal gland are slightly included in the field-of-v iew. A static disease in the differential diagnosis. Multilevel hypertrophic and degenerative changes of the spine. No definite destructive changes. Correlate for prior gastric bypass or gastric surgery . Cannot exclude adenopathy in the noah hepatis and peripancreatic region which is only partially in cluded in the [id number]. Critical test results called to referring clinician 2:08 PM 11/16/2023. IMPRESSION: 1. Severely limited exam with findings consistent with left upper lobe segmental and possibly right l ower lobe acute pulmonary embolism. Borderline RV strain. 2. Bilateral lower lobe infiltrate or atelectasis. 3. Hepatic and pulmonary metastases suspected. Additionally there is soft tissue fullness in the fernanda on the pancreatic head and periportal region only partially included in the [id number]. Mass or ad enopathy suspected. Follow-up recommendations for incidental pulmonary nodules are per [facility] [employer] or [employer].
[2023-11-16] MEDS ORDERED: HEPARIN SODIUM 1,000 UN/ML (10ML VL) IV PRN (14:14)
[2023-11-16] MEDS: SODIUM CHLORIDE 0.9% 500 ML 500 ML IV ONE (14:23)
[2023-11-16] MEDS ORDERED: PNEUMONIA PROTOCOL UTILIZED 1 EACH MISC PO PRN (14:30)
[2023-11-16] MEDS: PIPERACILLIN-TAZOBACTAM 3.375 GM in SODIUM CHLORIDE 0.9% 100 ML IVPB STA (14:35)
[2023-11-16] MEDS ORDERED: hydrOXYzine pamoate 25 MG CAP PO PRN (15:25)
[2023-11-16] MEDS ORDERED: PANTOPRAZOLE 40 MG TABLET PO PRN (15:25)
[2023-11-16] MEDS: HEPARIN SODIUM 1,000 UN/ML (10ML VL) IV ONE (15:31)
[2023-11-16] MEDS: HEPARIN SOD,PORK IN 0.45% NACL 25,000 UNIT in 0.45% NACL 1 250ML.BAG IV SCH (15:32)
--- NOTE | 2023-11-16 15:51 | P.CRDCN ---
History of Present Illness Consult date: 11/16/23 Reason for Consult (text): Pulmonary embolism History of present illness: 58-year-old lady with stage IV liver cancer congestive heart failure [id number]-bluydfwcc diabetes COPD and ascites presents to hospital complaining of shortness of breath that is been going on for the last several weeks. She apparently has been at this hospital within the last few weeks with congestive heart failure. I do not have access to those records as the EMR had recently been hacked. On her initial presentation to the ER her white cell count is elevated she is slightly anemic she underwent a CT scan of the chest that revealed pulmonary embolism involving the right lung and also has metastatic liver and lung disease. An EKG shows sinus rhythm with nonspecific ST-T wave changes troponin is elevated at 0.7 hemoglobin is 9.3. Patient is not a candid ate for EKOS at this time. She has been started on IV heparin per protocol which she is going to continue I will obtain a 2D echo and decide on further course of action based on how her symptoms evolve. I am going to review her records once they are available. Past medical history is significant for COPD odq-ukdqzpj-hlzkxtgbi diabetes stage IV liver cancer ascites and vpn-xaihopv-fughqwvbk diabetes. There is also history of congestive heart failure and valvular heart disease. Medications at home include Lamictal Kader Lasix Farxiga trazodone Protonix metoprolol Lamictal Cozaar Lipitor glipizide albuterol and Abilify patient is allergic to Xarelto Family history is negative for premature coronary artery disease social history negative for current smoking issues or drug abuse Review of systems: 14 out of 14 review of systems has been performed pertinence are as documented On exam: Patient is comfortable at rest heart rate is 90 bpm blood pressure is 98/60 respirate is 18 there is no jugular venous distention carotid upstroke is diminished there is no bruit chest exam reveals good air entry bilaterally heart exam reveals first and second heart sounds no gallop no murmur no rub abdomen is soft nontender exam extremities did not reveal any edema peripheral pulses are felt abdomen appears distended Labs show a white cell count of 24 hemoglobin of 9.3 INR is slightly elevated at 1.3 potassium is 3.8 BUN is 49 creatinine is 1 troponin is elevated at 0.7 BNP 794. Assessment and plan: Acute pulmonary embolism History of stage IV liver cancer with CT evidence of lung mets History of congestive heart failure History of ascites Patient will be treated with IV heparin. I will obtain a 2D echo. Past Medical History Past Medical History: Atrial Flutter, Cancer, Diabetes Mellitus, GERD/Reflux, Hyperlipidemia, Hypertension, Osteoarthritis (OA) Additional Past Medical History / Comment(s): migraines, chronic BACK PAIN. DDD, bulging disks, hx Skin CA. GETS NAUSEA WHEN EATING OFTEN, heart murmer, palpitations, hiatal hernia, constipation, History of Any Multi-Drug Resistant Organisms: None Reported Past Surgical History: Bariatric Surgery, Breast Surgery, Section, Cholecystectomy, Hernia Repair, Orthopedic Surgery, Uterine Ablation Additional Past Surgical History / Comment(s): RT Knee arthroscopy. KAILEY MULT TOES Surgery. Sinus Surgery. Gastric Bypass 2013. kailey Breast biopsy. CERVICAL CONE biopsy. PAIN PROC BACK, kailey eyelid procedure, incisional hernia repair, Past Anesthesia/Blood Transfusion Reactions: Previous Problems w/ Anesthesia, Motion Sickness Additional Past Anesthesia/Blood Transfusion Reaction / Comment(s): Woke up once during anesthesia. Mom has difficulty coming out of anesthesia and low b/p. Past Psychological History: Anxiety, Bipolar, Depression, Panic Disorder Smoking Status: Former smoker Past Alcohol Use History: Occasional Past Drug Use History: None Reported - Past Family History Father History Unknown: Yes Family Medical History: Cancer Additional Family Medical History / Comment(s): skin cancer Mother Family Medical History: Deep Vein Thrombosis (DVT) Medications and Allergies Home Medications Medication Instructions Recorded Confirmed Type Atorvastatin [Lipitor] 10 mg PO DAILY 07/19/17 11/16/23 History hydrOXYzine pamoate [Vistaril] 50 mg PO QID PRN 07/26/20 11/16/23 History traZODone HCL 100 mg PO HS PRN 07/26/20 11/16/23 History Multivitamin [Multivitamins Adult 1 tab PO DAILY 02/27/22 11/16/23 History Gummies] Biotin [Biotin Disolve] 10,000 mcg PO DAILY 09/02/22 11/16/23 History Metoprolol Tartrate 12.5 mg PO DAILY 09/02/22 11/16/23 History Calcium Carbonate/Vitamin D3 2 tab PO DAILY 10/06/23 11/16/23 History [Calcium 500 mg Chewable Tablet] Pantoprazole [Protonix] 40 mg PO DAILY PRN 10/06/23 11/16/23 History Ferrous Sulfate [Iron (65 MG 325 mg PO DAILY 10/08/23 11/16/23 History Elemental)] ARIPiprazole [Abilify] 10 mg PO DAILY 10/15/23 11/16/23 History Albuterol Sulfate [Albuterol 2 puff PO RT-Q6H PRN 10/15/23 11/16/23 History Sulfate Hfa] lamoTRIgine [LaMICtal] 150 mg PO DAILY 10/15/23 11/16/23 History lamoTRIgine [LaMICtal] 200 mg PO HS 10/15/23 11/16/23 History Losartan [Cozaar] 12.5 mg PO DAILY 10/20/23 11/16/23 History Acetaminophen-Codeine 300-30mg 1 tab PO BID PRN 11/16/23 11/16/23 History [Tylenol w/codeine #3] Dapagliflozin Propanediol [Farxiga] 10 mg PO DAILY 11/16/23 11/16/23 History Furosemide [Lasix] 20 mg PO DAILY 11/16/23 11/16/23 History Potassium Chloride ER [K-Dur 10] 10 meq PO DAILY 11/16/23 11/16/23 History glipiZIDE [Glucotrol] 5 mg PO BID 11/16/23 11/16/23 History Allergies Allergy/AdvReac Type Severity Reaction Status Date / Time grass pollen-perennial rye, Allergy ITCHY,WATERY Verified 11/16/23 14:55 standar EYES AND [grass poll-perennial NOSE rye,std] rivaroxaban [From Xarelto] AdvReac See comment Verified 11/16/23 14:55 tape Allergy tears Uncoded 11/16/23 14:55 skin,rash, states "paper tape is ok" Physical Exam Vitals: Vital Signs Temp Pulse Resp BP Pulse Ox 11/16/23 14:17 103 H 20 95/59 97 11/16/23 13:18 98.2 F 103 H 18 104/63 94 L 11/16/23 12:05 102 H 11/16/23 12:01 102 H 20 94/59 98 11/16/23 11:56 103 H 11/16/23 11:51 20 11/16/23 10:47 97.8 F 126 H 18 93/64 90 L Intake and Output 08/27/24 08/27/24 08/27/24 06:59 14:59 22:59 Other: Weight 73.482 kg Results 11/16/23 12:00 11/16/23 12:00 Cardiac Enzymes 11/16/23 11/16/23 Range/Units 12:00 12:00 AST 180 H (14-36) U/L Troponin I 0.774 H* (0.000-0.034) ng/mL Coagulation 11/16/23 Range/Units 12:00 PT 13.4 H (10.0-12.5) sec APTT 26.5 (22.0-30.0) sec CBC 11/16/23 Range/Units 12:00 WBC 24.1 H (3.8-10.6) k/uL RBC 3.92 (3.80-5.40) m/uL Hgb 9.3 L (11.4-16.0) gm/dL Hct 29.5 L (34.0-46.0) % Plt Count 296 (150-450) k/uL Comprehensive Metabolic Panel 11/16/23 Range/Units 12:00 Sodium 132 L (137-145) mmol/L Potassium 3.8 (3.5-5.1) mmol/L Chloride 94 L (98-107) mmol/L Carbon Dioxide 33 H (22-30) mmol/L BUN 49 H (7-17) mg/dL Creatinine 1.00 (0.52-1.04) mg/dL Glucose 136 H (74-99) mg/dL Calcium 8.4 (8.4-10.2) mg/dL AST 180 H (14-36) U/L ALT 64 H (4-34) U/L Alkaline Phosphatase 744 H (38-126) U/L Total Protein 5.9 L (6.3-8.2) g/dL Albumin 2.6 L (3.5-5.0) g/dL Current Medications Generic Name Dose Route Start Last Admin Trade Name Freq PRN Reason Stop Dose Admin Albuterol Sulfate 2 puff 11/16/23 15:25 Albuterol Hfa Inhaler INHALATION RT-Q6H PRN Shortness Of Breath Aripiprazole 10 mg 11/17/23 09:00 Aripiprazole 10 Mg Tab PO DAILY MARILOU Dapagliflozin 10 mg 11/17/23 09:00 Dapagliflozin Propanediol 10 Mg Tablet PO DAILY [facility] Ferrous Sulfate 325 mg 11/17/23 09:00 Ferrous Sulfate 325 Mg Tab PO DAILY [facility] Furosemide 20 mg 11/17/23 09:00 Furosemide 20 Mg Tab PO DAILY [facility] Glipizide 5 mg 11/16/23 21:00 Glipizide 5 Mg Tab PO BID [facility] Heparin Sodium (Porcine) 0 unit 11/16/23 14:14 Heparin Sodium 1,000 Un/Ml (10ml Vl) IV PER PROTOCOL PRN Low PTT Protocol Hydroxyzine Pamoate 50 mg 11/16/23 15:25 Hydroxyzine Pamoate 25 Mg Cap PO QID PRN Anxiety Heparin Sodium/Sodium Chloride 250 mls @ 13.227 mls/hr 11/16/23 14:15 11/16/23 15:32 25,000 unit/ Sodium Chloride IV 18 units/kg/hr .[id number] MARILOU 13.227 mls/hr Administration Protocol 18 UNITS/KG/HR Piperacillin Sod/Tazobactam 100 mls @ 25 mls/hr 11/16/23 22:00 Sod 3.375 gm/ Sodium Chloride IVPB Q8H [facility] Protocol Azithromycin 500 mg/ Sodium 250 mls @ 250 mls/hr 11/17/23 09:00 Chloride IVPB 11/18/23 09:59 DAILY [facility] Protocol Lamotrigine 200 mg 11/16/23 21:00 Lamotrigine 100 Mg Tab PO HS [facility] Lamotrigine 150 mg 11/17/23 09:00 Lamotrigine 100 Mg Tab PO DAILY [facility] Losartan Potassium 12.5 mg 11/17/23 09:00 Losartan 25 Mg Tab PO DAILY [facility] Metoprolol Tartrate 12.5 mg 11/17/23 09:00 Metoprolol Tartrate 25 Mg Tab PO DAILY [facility] Miscellaneous Information 1 each 11/16/23 14:30 Pneumonia Protocol Utilized 1 Each Misc PO ONCE PRN Per Protocol Pantoprazole Sodium 40 mg 11/16/23 15:25 Pantoprazole 40 Mg Tablet PO DAILY PRN Acid Reflux Potassium Chloride 10 meq 11/17/23 09:00 Potassium Chloride Er 10 Meq Tab.Er.Prt PO DAILY [facility] Trazodone HCl 100 mg 11/16/23 15:25 Trazodone Hcl 100 Mg Tab PO HS PRN Insomnia Intake and Output 11/16/23 11/16/23 11/16/23 06:59 14:59 22:59 Other: Weight 73.482 kg Patient Weight 11/17/23 06:59 Weight 73.482 kg 11/16/23 12:00 11/16/23 12:00
[2023-11-16] MEDS ORDERED: DEXTROSE 50% SYRINGE 50 ML IVP PRN ×2 (20:07)
--- NOTE | 2023-11-16 20:08 | P.HPIM ---
History of Present Illness H&P Date: 11/16/23 Chief Complaint: Short of breath This is a 58-year-old patient, follows Dr. Rincon. Chronic stable medical conditions include GERD, diabetes, hypertension, hyperlipidemia, osteoarthritis, hiatal hernia. Gastrojejunal gastric bypass in 2013. October 11, 2023:, by Dr. Hooks: EGD with rigid dilator 57 [place] to address lower esophageal sphincter and esophageal dysmotility.. 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 That was placed last week. Follow-up with oncologist Dr. Calin Atkins. Patient was discharged from the hospital last week following admission for congestive heart failure exacerbation with preserved ejection fraction. Also has some ascites but not felt to be enough for paracentesis. Patient presents for increasing shortness of breath for last 2 days. Denies any edema. No cough no fever no chills. Active. Diet. Decreased appetite. CT scan in the ER revealed pulmonary embolism. Started on IV heparin. Review of systems: GEN.: Weight loss decreased appetite EYES: None HEENT: None NECK: None RESPIRATORY: shortness of breath CARDIOVASCULAR: None GASTROINTESTINAL: Constipation GENITOURINARY: None MUSCULOSKELETAL: [Midthoracic back pain LYMPHATICS: None HEMATOLOGICAL: None PSYCHIATRY: None NEUROLOGICAL: None Social history: Patient started smoking at the age of [age] 1 pack a day. In the past. Alcohol occasionally. Had also done marijuana for pain. Mother is living with her Physical examination: VITAL SIGNS: 0.9, 90, 16, 91/56, 97% on 3 L GENERAL: Tired appearing EYES: Pupils equal. Conjunctiva daniel l. HEENT: External appearance of nose and ears normal, oral cavity grossly normal. NECK: JVD not raised; masses not palpable. HEART: First and second heart sounds are normal; no edema. LUNGS: Respiratory rate normal; clear to auscultation. ABDOMEN: Soft, mild tender r, liver spleen not palpable, no masses palpable. PSYCH: Alert and oriented x3; mood and affect daniel l. MUSCULOSKELETAL:No Clubbing/cyanosis;muscles-grossly intact NEUROLOGICAL: Cranial nerves grossly intact; no facial asymmetry, power and sensation grossly intact. LYMPHATICS: No lymph nodes palpable in the axilla and neck INVESTIGATIONS, reviewed in the clinical context: October 15: White count 24.1 hemoglobin 9.3 platelets 296 sodium 132 potassium 3.8 BUN 49 creatinine 1.0 AST 180 ALT 64 Troponin I 0.774 Procalcitonin 2.13 EKG tracing personally reviewed by me-normal sinus rhythm. Heart rate 115. Nonspecific ST/T wave changes Chest x-ray film personally reviewed by me-hyperinflation. Some interstitial infiltrates CT chest angio for PE:. Cardiomegaly. Hepatic metastasis. Adenopathy. Previous Brain MRI [October 17]: Unremarkable Liver biopsy-poorly differentiated adenocarcinoma CT abdomen pelvis with contrast [October 14]: Numerous large liver metastatic foci. Status postcholecystectomy. Low-density mass occupies noah hepatis. Suggestive of biliary or pancreatic primary. Assessment and plan: -Acute pulm embolism with possible right ventricular strain. Risk factors include decreased mobility and underlying new diagnosis of metastatic cancer IV heparin -IV heparin monitoring Follow PTT -Probable pneumonia suspect gram-negative organism IV Zosyn, azithromycin -Bile duct carcinoma poorly differentiated adenocarcinoma. Has a right chest p ort. MRI brain negative For chemotherapy, follow-up with Dr. Calin Marino outpatient- -Troponinemia, secondary to PE. No ACS -Microcytic anemia to include iron deficiency from underlying malignancy and nutritional component from decreased oral intake. Received IV iron previously -Bipolar disorder Abilify. Trazodone. Lamictal -Diabetes mellitus type 2 on oral hypoglycemic Follow Accu-Cheks. Glipizide -GERD Protonix -Essential hypertension Cozaar. Metoprolol. -COPD no prior smoker Albuterol as needed -Gastrojejunal bypass 2013 Patient does follow with Dr. Agatha Jaeger -Full code Care was discussed with the patient. Patient was seen by fur dressing supervisor Dr. Deangelo Yuan. Past Medical History Past Medical History: Atrial Flutter, Cancer, Diabetes Mellitus, GERD/Reflux, Hyperlipidemia, Hypertension, Osteoarthritis (OA) Additional Past Medical History / Comment(s): migraines, chronic BACK PAIN. DDD, bulging disks, hx Skin CA. GETS NAUSEA WHEN EATING OFTEN, heart murmer, palpitations, hiatal hernia, constipation, History of Any Multi-Drug Resistant Organisms: None Reported Past Surgical History: Bariatric Surgery, Breast Surgery, Section, Cholecystectomy, Hernia Repair, Orthopedic Surgery, Uterine Ablation Additional Past Surgical History / Comment(s): RT Knee arthroscopy. KAILEY MULT TOES Surgery. Sinus Surgery. Gastric Bypass 2013. kailey Breast biopsy. CERVICAL CONE biopsy. PAIN PROC BACK, kailey eyelid procedure, incisional hernia repair, Past Anesthesia/Blood Transfusion Reactions: Previous Problems w/ Anesthesia, Motion Sickness Additional Past Anesthesia/Blood Transfusion Reaction / Comment(s): Woke up once during anesthesia. Mom has difficulty coming out of anesthesia and low b/p. Past Psychological History: Anxiety, Bipolar, Depression, Panic Disorder Smoking Status: Former smoker Past Alcohol Use History: Occasional Past Drug Use History: None Reported - Past Family History Father History Unknown: Yes Family Medical History: Cancer Additional Family Medical History / Comment(s): skin cancer Mother Family Medical History: Deep Vein Thrombosis (DVT) Medications and Allergies Home Medications Medication Instructions Recorded Confirmed Type Atorvastatin [Lipitor] 10 mg PO DAILY 07/19/17 11/16/23 History hydrOXYzine pamoate [Vistaril] 50 mg PO QID PRN 07/26/20 11/16/23 History traZODone HCL 100 mg PO HS PRN 07/26/20 11/16/23 History Multivitamin [Multivitamins Adult 1 tab PO DAILY 02/27/22 11/16/23 History Gummies] Biotin [Biotin Disolve] 10,000 mcg PO DAILY 09/02/22 11/16/23 History Metoprolol Tartrate 12.5 mg PO DAILY 09/02/22 11/16/23 History Calcium Carbonate/Vitamin D3 2 tab PO DAILY 10/06/23 11/16/23 History [Calcium 500 mg Chewable Tablet] Pantoprazole [Protonix] 40 mg PO DAILY PRN 10/06/23 11/16/23 History Ferrous Sulfate [Iron (65 MG 325 mg PO DAILY 10/08/23 11/16/23 History Elemental)] ARIPiprazole [Abilify] 10 mg PO DAILY 10/15/23 11/16/23 History Albuterol Sulfate [Albuterol 2 puff PO RT-Q6H PRN 10/15/23 11/16/23 History Sulfate Hfa] lamoTRIgine [LaMICtal] 150 mg PO DAILY 10/15/23 11/16/23 History lamoTRIgine [LaMICtal] 200 mg PO HS 10/15/23 11/16/23 History Losartan [Cozaar] 12.5 mg PO DAILY 10/20/23 11/16/23 History Acetaminophen-Codeine 300-30mg 1 tab PO BID PRN 11/16/23 11/16/23 History [Tylenol w/codeine #3] Dapagliflozin Propanediol [Farxiga] 10 mg PO DAILY 11/16/23 11/16/23 History Furosemide [Lasix] 20 mg PO DAILY 11/16/23 11/16/23 History Potassium Chloride ER [K-Dur 10] 10 meq PO DAILY 11/16/23 11/16/23 History glipiZIDE [Glucotrol] 5 mg PO BID 11/16/23 11/16/23 History Allergies Allergy/AdvReac Type Severity Reaction Status Date / Time grass pollen-perennial rye, Allergy ITCHY,WATERY Verified 11/16/23 14:55 standar EYES AND [grass poll-perennial NOSE rye,std] rivaroxaban [From Xarelto] AdvReac See comment Verified 11/16/23 14:55 tape Allergy tears Uncoded 11/16/23 14:55 skin,rash, states "paper tape is ok" Physical Exam Vitals: Vital Signs Temp Pulse Resp BP Pulse Ox 11/16/23 18:33 97.9 F 90 16 91/56 97 11/16/23 17:00 96 16 97/51 98 11/16/23 16:00 100 13 95/54 97 11/16/23 15:00 98 18 95/59 91 L 11/16/23 14:17 103 H 20 95/59 97 11/16/23 14:00 100 10 L 96/59 98 11/16/23 13:18 98.2 F 103 H 18 104/63 94 L 11/16/23 13:00 96 20 104/63 96 11/16/23 12:05 102 H 11/16/23 12:01 102 H 20 94/59 98 11/16/23 11:56 103 H 11/16/23 11:51 20 11/16/23 10:47 97.8 F 126 H 18 93/64 90 L Intake and Output 11/16/23 11/16/23 11/16/23 06:59 14:59 22:59 Other: Weight 73.482 kg Results CBC & Chem 7: 11/16/23 12:00 11/16/23 12:00 Labs: Abnormal Lab Results - Last 24 Hours (Table) 08/11/16/23 11/16/23 Range/Units 12:00 12:00 12:00 WBC 24.1 H (3.8-10.6) k/uL Hgb 9.3 L (11.4-16.0) gm/dL Hct 29.5 L (34.0-46.0) % MCV 75.2 L (80.0-100.0) fL MCH 23.7 L (25.0-35.0) pg RDW 19.0 H (11.5-15.5) % Neutrophils # 21.3 H (1.3-7.7) k/uL PT 13.4 H (10.0-12.5) sec INR 1.3 H (<1.2) Sodium 132 L (137-145) mmol/L Chloride 94 L (98-107) mmol/L Carbon Dioxide 33 H (22-30) mmol/L BUN 49 H (7-17) mg/dL Glucose 136 H (74-99) mg/dL Total Bilirubin 4.3 H (0.2-1.3) mg/dL AST 180 H (14-36) U/L ALT 64 H (4-34) U/L Alkaline Phosphatase 744 H (38-126) U/L Troponin I (0.000-0.034) ng/mL Total Protein 5.9 L (6.3-8.2) g/dL Albumin 2.6 L (3.5-5.0) g/dL Procalcitonin (0.02-0.50) ng/mL 11/16/23 11/16/23 Range/Units 12:00 14:36 WBC (3.8-10.6) k/uL Hgb (11.4-16.0) gm/dL Hct (34.0-46.0) % MCV (80.0-100.0) fL MCH (25.0-35.0) pg RDW (11.5-15.5) % Neutrophils # (1.3-7.7) k/uL PT (10.0-12.5) sec INR (<1.2) Sodium (137-145) mmol/L Chloride (98-107) mmol/L Carbon Dioxide (22-30) mmol/L BUN (7-17) mg/dL Glucose (74-99) mg/dL Total Bilirubin (0.2-1.3) mg/dL AST (14-36) U/L ALT (4-34) U/L Alkaline Phosphatase (38-126) U/L Troponin I 0.774 H* (0.000-0.034) ng/mL Total Protein (6.3-8.2) g/dL Albumin (3.5-5.0) g/dL Procalcitonin 2.13 H (0.02-0.50) ng/mL
[2023-11-16] MEDS: ALBUTEROL HFA INHALER INHALATION PRN (20:15)
[2023-11-16] MEDS ORDERED: glipiZIDE 5 MG TAB PO SCH (21:00)
[2023-11-16] MEDS: lamoTRIgine 100 MG TAB PO SCH (21:15)
[2023-11-16] MEDS: Acetaminophen-Codeine 300-30mg TAB PO PRN (21:23)
[2023-11-16] MEDS: PIPERACILLIN-TAZOBACTAM 3.375 GM in SODIUM CHLORIDE 0.9% 100 ML IVPB SCH (21:25)
[2023-11-16] MEDS: traZODone HCL 100 MG TAB PO PRN (23:39)
--- NOTE | 2023-11-17 02:37 | P.CNPUL ---
History of Present Illness Consult date: 11/17/23 Requesting physician: Jamel Roach Reason for consult: pulmonary embolism Chief complaint: Shortness of breath History of present illness: Patient is a 58-year-old white female with past medical history significant for diabetes mellitus, hyperlipidemia, hypertension, heart failure, and cancer. She did have a recent hospitalization in September,. Abdominal CT and pelvis CAT scan identifying numerous large liver metastatic foci. Prior cholecystectomy with low-density mass occupying noah hepatis suggesting, possibly biliary or pancreatic primary. Underwent CT-guided liver biopsy on 10/18/2023, and cytology was positive for poorly differentiated adenocarcinoma. Possible cholangiocarcin derick versus metastasis from a different site. She was scheduled to have her first appointment with her oncologist yesterday. Recently had a Mediport placed. Not currently on any systemic treatment. Developed some shortness of breath starting approximately 24 hours prior to presentation to the emergency department. She denies any symptoms such as fever, chest pain, cough, sputum production or hemoptysis, lightheadedness or syncopal events. Chest CTA was technically limited exam, however, findings consistent with left upper lobe segmental and possibly right lower lobe segmental pulmonary embolism. Questionable borderline RV strain. Bilateral lower lobe atelectasis versus infiltrate. Hepatic and pulmonary metastasis suspected. Multiple bilateral pulmonary nodules, larger and more numerous than recent CTA. There are new findings when compared to most recent chest CTA done 10/15/2023. She is currently sitting up in bed, in the emergency department. She is on 3 L/min nasal cannula. SpO2 is 96%. No respiratory distress. Heart rate is 86 bpm. Blood pressure 93/57. Afebrile with a temperature of 98.2 F. Currently on a heparin infusion per high intensity protocol. No unilateral lower extremity swelling. An echocardiogram was taken earlier, and results are pending. CBC: WBC count 24.1, hemoglobin 9.3, hematocrit 29.5, platelets 296. Most recent APTT 87.4. CMP: Sodium 132, potassium 3.8, chloride 94, serum bicarb 33, BUN 49, creatinine 1, glucose 136. Total bilirubin 4.3. LFTs mildly elevated. Troponins elevated at 0.774, 0.693 respectively. NT proBNP 794. Procalcitonin elevated at 2.13. Currently covered on a combination of antibiotics including azithromycin and Zosyn which were started in the emergency department. Hemodynamics are stable at the moment. Review of Systems REVIEW OF SYSTEMS: CONSTITUTIONAL: Admits recent 30 pound weight loss over the last 1 to 2 months. Admits generalized fatigue and weakness. Also had recent hospitalization and Mediport placement. EYES: Denies change in vision. EARS, NOSE, MOUTH, THROAT: Denies headaches, denies sore throat. CARDIOVASCULAR: Denies chest pain, palpitations or syncopal episodes. RESPIRATORY: See HPI GASTROINTESTINAL: Denies change in appetite, nausea and vomiting, or diarrhea. Admits right upper quadrant pain with palpation GENITOURINARY: Denies hematuria, denies infections. MUSKULOSKELETAL: Denies pain, denies swelling. INTEGUMENTARY: Denies rash, denies eczema. NEUROLOGICAL: Denies recent memory loss, no recent seizure activity. PSYCHIATRIC: Denies anxiety, denies depression. HEMATOLOGIC/LYMPHATIC: Denies anemia, denies enlarged lymph node Past Medical History Past Medical History: Atrial Flutter, Cancer, Diabetes Mellitus, GERD/Reflux, Hyperlipidemia, Hypertension, Osteoarthritis (OA) Additional Past Medical History / Comment(s): migraines, chronic BACK PAIN. DDD, bulging disks, hx Skin CA. GETS NAUSEA WHEN EATING OFTEN, heart murmer, palpitations, hiatal hernia, constipation, History of Any Multi-Drug Resistant Organisms: None Reported Past Surgical History: Bariatric Surgery, Breast Surgery, Section, Cholecystectomy, Hernia Repair, Orthopedic Surgery, Uterine Ablation Additional Past Surgical History / Comment(s): RT Knee arthroscopy. KAILEY MULT TOES Surgery. Sinus Surgery. Gastric Bypass 2013. ka[facility] Breast biopsy. CERVICAL CONE biopsy. PAIN PROC BACK, kailey eyelid procedure, incisional hernia repair, Past Anesthesia/Blood Transfusion Reactions: Previous Problems w/ Anesthesia, Motion Sickness Additional Past Anesthesia/Blood Transfusion Reaction / Comment(s): Woke up once during anesthesia. Mom has difficulty coming out of anesthesia and low b/p. Past Psychological History: Anxiety, Bipolar, Depression, Panic Disorder Smoking Status: Former smoker Past Alcohol Use History: Occasional Past Drug Use History: None Reported - Past Family History Father History Unknown: Yes Family Medical History: Cancer Additional Family Medical History / Comment(s): skin cancer Mother Family Medical History: Deep Vein Thrombosis (DVT) Medications and Allergies Home Medications Medication Instructions Recorded Confirmed Type Atorvastatin [Lipitor] 10 mg PO DAILY 07/19/17 11/16/23 History hydrOXYzine pamoate [Vistaril] 50 mg PO QID PRN 07/26/20 11/16/23 History traZODone HCL 100 mg PO HS PRN 07/26/20 11/16/23 History Multivitamin [Multivitamins Adult 1 tab PO DAILY 02/27/22 11/16/23 History Gummies] Biotin [Biotin Disolve] 10,000 mcg PO DAILY 09/02/22 11/16/23 History Metoprolol Tartrate 12.5 mg PO DAILY 09/02/22 11/16/23 History Calcium Carbonate/Vitamin D3 2 tab PO DAILY 10/06/23 11/16/23 History [Calcium 500 mg Chewable Tablet] Pantoprazole [Protonix] 40 mg PO DAILY PRN 10/06/23 11/16/23 History Ferrous Sulfate [Iron (65 MG 325 mg PO DAILY 10/08/23 11/16/23 History Elemental)] ARIPiprazole [Abilify] 10 mg PO DAILY 10/15/23 11/16/23 History Albuterol Sulfate [Albuterol 2 puff PO RT-Q6H PRN 10/15/23 11/16/23 History Sulfate Hfa] lamoTRIgine [LaMICtal] 150 mg PO DAILY 10/15/23 11/16/23 History lamoTRIgine [LaMICtal] 200 mg PO HS 10/15/23 11/16/23 History Losartan [Cozaar] 12.5 mg PO DAILY 10/20/23 11/16/23 History Acetaminophen-Codeine 300-30mg 1 tab PO BID PRN 11/16/23 11/16/23 History [Tylenol w/codeine #3] Dapagliflozin Propanediol [Farxiga] 10 mg PO DAILY 11/16/23 11/16/23 History Furosemide [Lasix] 20 mg PO DAILY 11/16/23 11/16/23 History Potassium Chloride ER [K-Dur 10] 10 meq PO DAILY 11/16/23 11/16/23 History glipiZIDE [Glucotrol] 5 mg PO BID 11/16/23 11/16/23 History Allergies Allergy/AdvReac Type Severity Reaction Status Date / Time grass pollen-perennial rye, Allergy ITCHY,WATERY Verified 11/16/23 14:55 standar EYES AND [grass poll-perennial NOSE rye,std] rivaroxaban [From Xarelto] AdvReac See comment Verified 11/16/23 14:55 tape Allergy tears Uncoded 11/16/23 14:55 skin,rash, states "paper tape is ok" Physical Exam Vitals: Vital Signs Temp Pulse Pulse Resp BP BP Pulse Ox 11/17/23 00:00 98.2 F 95 21 94/57 11/16/23 22:00 58 L 18 118/52 96 11/16/23 18:33 97.9 F 90 16 91/56 97 11/16/23 17:00 96 16 97/51 98 11/16/23 16:00 100 13 95/54 97 11/16/23 15:00 98 18 95/59 91 L 11/16/23 14:17 103 H 20 95/59 97 11/16/23 14:00 100 10 L 96/59 98 11/16/23 13:18 98.2 F 103 H 18 104/63 94 L 11/16/23 13:00 96 20 104/63 96 11/16/23 12:05 102 H 11/16/23 12:01 102 H 20 94/59 98 11/16/23 11:56 103 H 11/16/23 11:51 20 11/16/23 10:47 97.8 F 126 H 18 93/64 90 L Intake and Output 11/16/23 11/16/23 11/17/23 14:59 22:59 06:59 Intake Total 88.841 Balance 88.841 Intake: Intake, IV Titration 88.841 Amount Heparin Sod,Pork in 0.45% 88.841 NaCl 25,000 unit In 0.45 % NaCl 1 250ml.bag @ 18 UNITS/KG/HR 13.227 mls/hr IV .[id number] [facility] Rx#: [id number] Other: Weight 73.482 kg 73.482 kg GENERAL EXAM: Alert, a 58-year-old white female, comfortable in no apparent distress. HEAD: Normocephalic and atraumatic EYES: Normal reaction of pupils, equal size. NOSE: Clear with pink turbinates. THROAT: No erythema or exudates. NECK: No masses, no JVD. CHEST: No chest wall deformity. Right chest Mediport incisional site approximated without drainage. No redness or warmth. LUNGS: Equal air entry with no crackles, wheeze, rhonchi or dullness. On 3 L/min nasal cannula. SpO2 96%. No conversational dyspnea or accessory muscle use.. CVS: S1 and S2 normal with no audible murmur, regular rhythm. No extra heart sounds ABDOMEN: Active bowel sounds, no palpable masses, no guarding or rigidity. SPINE: No scoliosis or deformity SKIN: No rashes CENTRAL NERVOUS SYSTEM: No focal deficits, tone is normal in all 4 extremities. EXTREMITIES: There is no peripheral edema, clubbing, or cyanosis. Peripheral pulses are intact. Results - Laboratory Findings CBC and BMP: 11/16/23 12:00 11/16/23 12:00 PT/INR, D-dimer PT 13.4 sec (10.0-12.5) H 11/16/23 12:00 INR 1.3 (<1.2) H 11/16/23 12:00 Abnormal lab findings: Abnormal Labs 11/16/23 11/16/23 11/16/23 12:00 12:00 12:00 WBC 24.1 H Hgb 9.3 L Hct 29.5 L MCV 75.2 L MCH 23.7 L RDW 19.0 H Neutrophils # 21.3 H PT 13.4 H INR 1.3 H APTT Sodium 132 L Chloride 94 L Carbon Dioxide 33 H BUN 49 H Glucose 136 H Total Bilirubin 4.3 H AST 180 H ALT 64 H Alkaline Phosphatase 744 H Troponin I Total Protein 5.9 L Albumin 2.6 L Procalcitonin 11/16/23 11/16/23 11/16/23 12:00 14:36 19:40 WBC Hgb Hct MCV MCH RDW Neutrophils # PT INR APTT 87.4 H Sodium Chloride Carbon Dioxide BUN Glucose Total Bilirubin AST ALT Alkaline Phosphatase Troponin I 0.774 H* Total Protein Albumin Procalcitonin 2.13 H 11/16/23 23:36 WBC Hgb Hct MCV MCH RDW Neutrophils # PT INR APTT Sodium Chloride Carbon Dioxide BUN Glucose Total Bilirubin AST ALT Alkaline Phosphatase Troponin I 0.693 H* Total Protein Albumin Procalcitonin - Diagnostic Findings Chest x-ray: image reviewed CT scan - chest: image reviewed Assessment and Plan Assessment: Bilateral segmental/subsegmental pulmonary embolism, with questionable RV strain as reported on chest CTA. Chest CTA indicating filling defects within left upper lobe segmental and possibly right lower lobe segmental pulmonary arteries Bibasilar atelectasis versus pneumonia Acute hypoxemic respiratory failure, secondary to above Metastatic poorly differentiated adenocarcinoma, diagnosed via CT-guided liver biopsy on 10/18/2023, and cytology was positive for poorly differentiated adenocarcinoma. Possible biliary or pancreatic primary. Multiple metastatic bilateral pulmonary nodules, secondary to above Acute leukocytosis. Microcytic anemia Elevated troponins, rule out non-ST elevation [place] Recent hospitalization and Mediport placement Diabetes mellitus History of hyperlipidemia History of hypertension History of heart failure with preserved ejection fraction History of GERD Former tobacco smoker, with over [id number] history Plan: Patient's medications, labs, imaging reviewed Hemodynamics stable at this time. Patient has multiple predisposing factors for PE including recent hospitalization, recent Mediport placement, and her metastatic disease. Currently on high intensity heparin protocol. Monitor APTT per protocol. Monitor for acute blood loss. Transthoracic echocardiogram pending Oral anticoagulation likely to follow Continue supplemental oxygen, currently on 3 L/min nasal cannula Patient is currently empirically covered on antibiotics which were started in the emergency department. She does have an elevated procalcitonin level of 2.13. Medical oncology also consulted. We will continue to follow. I have personally seen and examined the patient, performed the documentation and the assessment and plan as written. Number of minutes spent on the visit:20 Time with Patient: Greater than 30
[2023-11-17 03:41] LABS: Anisocytosis Slight; Basophils # (A) 0.1 k/uL (0-0.2); Basophils % (A) 0 %; Eosinophils # (A) 0.8 k/uL (0-0.7); Eosinophils % (A) 4 %; HCT 25.6 % (34.0-46.0); HGB 8.1 gm/dL (11.4-16.0); Hypochromasia Moderate; Lymphocytes # (A) 1.5 k/uL (1.0-4.8); Lymphocytes % (A) 8 %; MCH 24.3 pg (25.0-35.0); MCHC 31.7 g/dL (31.0-37.0); MCV 76.7 fL (80.0-100.0); Mean Platelet Volume 8.6; Microcytosis Slight; Monocytes # (A) 1.3 k/uL (0-1.0); Monocytes % (A) 7 %; Neutrophils # (A) 15.1 k/uL (1.3-7.7); Neutrophils % (A) 80 %; Platelet Count 286 k/uL (150-450); RBC 3.34 m/uL (3.80-5.40); RDW 19.1 % (11.5-15.5); WBC 18.9 k/uL (3.8-10.6)
[2023-11-17 05:56] LABS: Glucose,Whole Blood 94 mg/dL (70-110)
[2023-11-17] MEDS: INSULIN ASPART (NovoLOG) 100 UNIT/ML VIAL SQ SCH (06:03)
--- NOTE | 2023-11-17 07:39 | XR ---
EXAMINATION TYPE: XR chest 2V DATE OF EXAM: 11/17/2023 COMPARISON: 11/16/2023 HISTORY: 58-year-old female pneumonia TECHNIQUE: AP and lateral views FINDINGS: Right anterior chest wall injection port catheter tip at the lower SVC. Heart upper limits of normal in size. Diffuse interstitial density persists in there is now a trace left pleural effusion apparent . IMPRESSION: Consider CHF with pulmonary vascular congestion. Development of a trace left pleural effusion with ad jacent atelectasis and/or consolidation.
--- NOTE | 2023-11-17 08:54 | XR ---
EXAMINATION TYPE: XR chest 1V portable DATE OF EXAM: 11/17/2023 8:30 AM CLINICAL INDICATION: Female, 58 years old with history of SOB; PHH COMPARISON: Chest radiographs from 10/16/2023 TECHNIQUE: XR chest 1V portable Frontal view of the chest. FINDINGS: Lungs/Pleura: There is no evidence of pleural effusion, focal consolidation, or pneumothorax. Pulmonary vascularity: Unremarkable. Heart/mediastinum: Cardiomediastinal silhouette is unremarkable. Musculoskeletal: No acute osseous pathology. Other findings: None IMPRESSION: No acute cardiopulmonary disease/process.
[2023-11-17] MEDS: FERROUS SULFATE 325 MG TAB PO SCH (09:10)
[2023-11-17] MEDS: CALCIUM CARB-VIT D 500 MG-5 MCG TAB PO SCH (09:10)
[2023-11-17] MEDS: LOSARTAN 25 MG TAB PO SCH (09:11)
[2023-11-17] MEDS: POTASSIUM CHLORIDE ER 10 MEQ TAB.ER.PRT PO SCH (09:11)
[2023-11-17] MEDS: MULTIVITAMINS, THERA 1 EACH TAB PO SCH (09:11)
[2023-11-17] MEDS: FUROSEMIDE 20 MG TAB PO SCH (09:11)
[2023-11-17] MEDS: glipiZIDE 5 MG TAB PO SCH (09:11)
[2023-11-17] MEDS: METOPROLOL TARTRATE 25 MG TAB PO SCH (09:11)
[2023-11-17] MEDS: DAPAGLIFLOZIN PROPANEDIOL 10 MG TABLET PO SCH (09:11)
[2023-11-17] MEDS: lamoTRIgine 100 MG TAB PO SCH (09:12)
[2023-11-17] MEDS: ARIPiprazole 10 MG TAB PO SCH (09:12)
[2023-11-17] MEDS: AZITHROMYCIN 500 MG in SODIUM CHLORIDE 0.9% 250 ML IVPB SCH (09:15)
[2023-11-17 11:58] LABS: Glucose,Whole Blood 98 mg/dL (70-110)
--- NOTE | 2023-11-17 12:02 | CA ---
Transthoracic Echo Report Name: Pratima Goodwin Age: 58 Gender: F : 1965 Exam Date: 11/16/2023 14:45 Exam Location: [facility] Ht (in): 67 Wt (lb): 163 Ordering Physician: Jamel Roach PAC Attending/Referring Phys: Expressive Therapist Bernice Iglesias RDCS Procedure CPT: Indications: PE,asses for right heart strain Cardiac Hx: Technical Quality: Fair Contrast 1: Total Dose (mL): Contrast 2: Total Dose (mL): MEASUREMENTS (Male / Female) Normal Values 2D ECHO LV Diastolic Diameter PLAX 3.9 cm 4.2 - 5.9 / 3.9 - 5.3 cm LV Systolic Diameter PLAX 2.8 cm IVS Diastolic Thickness 1.0 cm 0.6 - 1.0 / 0.6 - 0.9 cm LVPW Diastolic Thickness 1.0 cm 0.6 - 1.0 / 0.6 - 0.9 cm LV Relative Wall Thickness 0.5 RV Internal Dim ED PLAX 2.8 cm LA Systolic Diameter LX 3.7 cm 3.0 - 4.0 / 2.7 - 3.8 cm LV Diastolic Volume MOD BP 63.2 cm??? 67 - 155 / 56 - 104 cm??? LV Systolic Volume MOD BP 22.0 cm??? 22 - 58 / 19 - 49 cm??? LV Ejection Fraction MOD BP 65.2 % >= 55 % LV Cardiac Index MOD BP 2167.8 cm???/min???m??? LV Diastolic Volume MOD 4C 74.9 cm??? LV Systolic Volume MOD 4C 23.3 cm??? LV Ejection Fraction MOD 4C 68.9 % LV Cardiac Index MOD 4C 2714.7 cm???/min???m??? LV Diastolic Length 4C 7.6 cm LV Systolic Length 4C 5.9 cm LV Diastolic Volume MOD 2C 50.2 cm??? LV Systolic Volume MOD 2C 10.3 cm??? LV Ejection Fraction MOD 2C 79.4 % LV Cardiac Index MOD 2C 2098.8 cm???/min???m??? LV Diastolic Length 2C 7.1 cm LV Systolic Length 2C 2.9 cm M-MODE Aortic Root Diameter MM 2.9 cm LA Systolic Diameter MM 3.4 cm LA Ao Ratio MM 1.2 AV Cusp Separation MM 1.9 cm DOPPLER TR Peak Velocity 242.6 cm/s TR Peak Gradient 23.5 mmHg Right Ventricular Systolic Press 28.1 mmHg FINDINGS Left Ventricle Left ventricular ejection fraction is estimated at 65-70%. Mildly increased septal wall thickness. Mildly increased posterior wall thickness. No obvious regional wall motion abnormalities. Right Ventricle Normal right ventricular size and function. Right ventricular systolic pressure within normal limits. Right Atrium Left Atrium Mitral Valve Aortic Valve Tricuspid Valve Pulmonic Valve Pericardium Aorta CONCLUSIONS Left ventricular ejection fraction 65% Mildly increased left ventricular wall thickness Normal right ventricular size and function, no significant right ventricular dilation Previewed by: Dr. Ric Hughes DO (Electronically Signed) Final Date: 17 November 2023 12:02
--- NOTE | 2023-11-17 12:28 | P.PN ---
Subjective Progress Note Date: 11/17/23 Reason for Consult (text): Pulmonary embolism History of present illness: 58-year-old lady with stage IV liver cancer congestive heart failure non-insul in-dependent diabetes COPD and ascites presents to hospital complaining of shortness of breath that is been going on for the last several weeks. She apparently has been at this hospital within the last few weeks with congestive heart failure. I do not have access to those records as the EMR had recently been hacked. On her initial presentation to the ER her white cell count is elevated she is slightly anemic she underwent a CT scan of the chest that revealed pulmonary embolism involving the right lung and also has metastatic liver and lung disease. An EKG shows sinus rhythm with nonspecific ST-T wave changes troponin is elevated at 0.7 hemoglobin is 9.3. Patient is not a candidate for EKOS at this time. She has been started on IV heparin per protocol which she is going to continue I will obtain a 2D echo and decide on further course of action based on how her symptoms evolve. I am going to review her records once they are available. Past medical history is significant for COPD ayl-clhapqm-aafjffszj diabetes stage IV liver cancer ascites and qzk-zkjqlsn-gxmbmwalk diabetes. There is also history of congestive heart failure and valvular heart disease. Medications at home include Lamictal Kader Lasix Farxiga trazodone Protonix metoprolol Lamictal Cozaar Lipitor glipizide albuterol and Abilify patient is allergic to Xarelto Family history is negative for premature coronary artery disease social history negative for current smoking issues or drug abuse Labs show a white cell count of 24 hemoglobin of 9.3 INR is slightly elevated at 1.3 potassium is 3.8 BUN is 49 creatinine is 1 troponin is elevated at 0.7 BNP 794. 11/16 Patient is seen today in follow-up. She remains in the emergency center. She was started on heparin drip yesterday. Patient is also followed by pulmonary medicine. Limited echocardiogram reveals EF of 65%, mildly increased left ventricular wall thickness. Normal right ventricular size and function and no significant right ventricular dilation. Repeat chest x-ray reveals no acute cardiopulmonary disease. Blood pressure 108/72, heart rate 84, pulse ox 97% on 2 L nasal cannula. Repeat blood work reveals WBC 18.9, hemoglobin 8.1, platelet count 286. Repeat troponins were 0.693 and 0.610. On exam: Patient is comfortable at rest heart rate is 90 bpm blood pressure is 98/60 respirate is 18 there is no jugular venous distention carotid upstroke is diminished there is no bruit chest exam reveals good air entry bilaterally heart exam reveals first and second heart sounds no gallop no murmur no rub abdomen is soft nontender exam extremities did not reveal any edema peripheral pulses are felt abdomen appears distended Assessment: Acute pulmonary embolism History of stage IV liver cancer with CT evidence of lung mets History of congestive heart failure History of ascites Plan: Continue patient on IV heparin No evidence of right heart strain on echocardiogram Further recommendations as patient progresses Nurse practitioner note has been reviewed, I agree with documented findings and plan of care. Patient was seen and examined. Objective - Vital Signs Vital signs: Vital Signs Temp 97.8 F 11/17/23 09:17 Pulse 84 11/17/23 12:03 Resp 16 11/17/23 12:03 BP 108/72 11/17/23 12:03 Pulse Ox 97 11/17/23 12:03 FiO2 Intake & Output 11/16/23 11/17/23 11/17/23 18:59 06:59 18:59 Intake Total 88.841 124.245 Balance 88.841 124.245 Weight 73.482 kg 73.482 kg Intake: Intake, IV Titration 88.841 124.245 Amount Heparin Sod,Pork in 0.45% 88.841 124.245 NaCl 25,000 unit In 0.45 % NaCl 1 250ml.bag @ 18 UNITS/KG/HR 13.227 mls/hr IV .[id number] [facility] Rx#: [id number] Other: Voiding Method External Catheter - Labs CBC & Chem 7: 11/17/23 02:49 11/16/23 12:00 Labs: Abnormal Lab Results - Last 24 Hours (Table) 11/16/23 11/16/23 11/16/23 Range/Units 12:00 12:00 12:00 WBC 24.1 H (3.8-10.6) k/uL RBC (3.80-5.40) m/uL Hgb 9.3 L (11.4-16.0) gm/dL Hct 29.5 L (34.0-46.0) % MCV 75.2 L (80.0-100.0) fL MCH 23.7 L (25.0-35.0) pg RDW 19.0 H (11.5-15.5) % Neutrophils # 21.3 H (1.3-7.7) k/uL Monocytes # (0-1.0) k/uL Eosinophils # (0-0.7) k/uL PT 13.4 H (10.0-12.5) sec INR 1.3 H (<1.2) APTT (22.0-30.0) sec Sodium 132 L (137-145) mmol/L Chloride 94 L (98-107) mmol/L Carbon Dioxide 33 H (22-30) mmol/L BUN 49 H (7-17) mg/dL Glucose 136 H (74-99) mg/dL Total Bilirubin 4.3 H (0.2-1.3) mg/dL AST 180 H (14-36) U/L ALT 64 H (4-34) U/L Alkaline Phosphatase 744 H (38-126) U/L Troponin I (0.000-0.034) ng/mL Total Protein 5.9 L (6.3-8.2) g/dL Albumin 2.6 L (3.5-5.0) g/dL Procalcitonin (0.02-0.50) ng/mL 11/16/23 11/16/23 11/16/23 Range/Units 12:00 14:36 19:40 WBC (3.8-10.6) k/uL RBC (3.80-5.40) m/uL Hgb (11.4-16.0) gm/dL Hct (34.0-46.0) % MCV (80.0-100.0) fL MCH (25.0-35.0) pg RDW (11.5-15.5) % Neutrophils # (1.3-7.7) k/uL Monocytes # (0-1.0) k/uL Eosinophils # (0-0.7) k/uL PT (10.0-12.5) sec INR (<1.2) APTT 87.4 H (22.0-30.0) sec Sodium (137-145) mmol/L Chloride (98-107) mmol/L Carbon Dioxide (22-30) mmol/L BUN (7-17) mg/dL Glucose (74-99) mg/dL Total Bilirubin (0.2-1.3) mg/dL AST (14-36) U/L ALT (4-34) U/L Alkaline Phosphatase (38-126) U/L Troponin I 0.774 H* (0.000-0.034) ng/mL Total Protein (6.3-8.2) g/dL Albumin (3.5-5.0) g/dL Procalcitonin 2.13 H (0.02-0.50) ng/mL 11/16/23 11/17/23 11/17/23 Range/Units 23:36 02:49 02:49 WBC 18.9 H (3.8-10.6) k/uL RBC 3.34 L (3.80-5.40) m/uL Hgb 8.1 L (11.4-16.0) gm/dL Hct 25.6 L (34.0-46.0) % MCV 76.7 L (80.0-100.0) fL MCH 24.3 L (25.0-35.0) pg RDW 19.1 H (11.5-15.5) % Neutrophils # 15.1 H (1.3-7.7) k/uL Monocytes # 1.3 H (0-1.0) k/uL Eosinophils # 0.8 H (0-0.7) k/uL PT (10.0-12.5) sec INR (<1.2) APTT 54.9 H (22.0-30.0) sec Sodium (137-145) mmol/L Chloride (98-107) mmol/L Carbon Dioxide (22-30) mmol/L BUN (7-17) mg/dL Glucose (74-99) mg/dL Total Bilirubin (0.2-1.3) mg/dL AST (14-36) U/L ALT (4-34) U/L Alkaline Phosphatase (38-126) U/L Troponin I 0.693 H* (0.000-0.034) ng/mL Total Protein (6.3-8.2) g/dL Albumin (3.5-5.0) g/dL Procalcitonin (0.02-0.50) ng/mL 11/17/23 Range/Units 02:49 WBC (3.8-10.6) k/uL RBC (3.80-5.40) m/uL Hgb (11.4-16.0) gm/dL Hct (34.0-46.0) % MCV (80.0-100.0) fL MCH (25.0-35.0) pg RDW (11.5-15.5) % Neutrophils # (1.3-7.7) k/uL Monocytes # (0-1.0) k/uL Eosinophils # (0-0.7) k/uL PT (10.0-12.5) sec INR (<1.2) APTT (22.0-30.0) sec Sodium (137-145) mmol/L Chloride (98-107) mmol/L Carbon Dioxide (22-30) mmol/L BUN (7-17) mg/dL Glucose (74-99) mg/dL Total Bilirubin (0.2-1.3) mg/dL AST (14-36) U/L ALT (4-34) U/L Alkaline Phosphatase (38-126) U/L Troponin I 0.610 H* (0.000-0.034) ng/mL Total Protein (6.3-8.2) g/dL Albumin (3.5-5.0) g/dL Procalcitonin (0.02-0.50) ng/mL
--- NOTE | 2023-11-17 14:30 | US ---
EXAMINATION TYPE: US abdomen limited DATE OF EXAM: 11/17/2023 COMPARISON: NONE CLINICAL INDICATION: Female, 58 years old with history of ascites check; ascites Technique: Grayscale imaging of the abdomen for ascites. FINDINGS: trace fluid at he right lower quadrant. There is acute thrombus noted at the visualized right iliac vein (compare to same day US and 11/15 CTA) IMPRESSION: 1. No free fluid in the abdomen. 2. Multiple liver lesions compatible with metastatic disease.
--- NOTE | 2023-11-17 16:46 | P.PN ---
Progress Note - Text Progress Note Date: 11/17/23 Chief Complaint: Short of breath This is a 58-year-old patient, follows Dr. Rincon. Chronic stable medical conditions include GERD, diabetes, hypertension, hyperlipidemia, osteoarthritis, hiatal hernia. Gastrojejunal gastric bypass in 2013. October 11, 2023:, by Dr. Hooks: EGD with rigid dilator 57 [place] to address lower esophageal sphincter and esophageal dysmotility.. 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 That was placed last week. Follow-up with oncologist Dr. Calin Atkins. Patient was discharged from the hospital last week following admission for congestive heart failure exacerbation with preserved ejection fraction. Also has some ascites but not felt to be enough for paracentesis. Patient presents for increasing shortness of breath for last 2 days. Denies any edema. No cough no fever no chills. Active. Diet. Decreased appetite. CT scan in the ER revealed pulmonary embolism. Started on IV heparin. November 16: Saw the patient earlier today in the ER. Overflow from the floor r. Mother also at the bedside. Getting IV heparin. Patient is having nutritional shakes. Not much of an appetite. Tired. CODE STATUS was discussed. Present time remains full code. Decision maker in case she cannot will be her mother and son. Paperwork was given to her for medical POA. Echo shows normal right ventricular strain. Active Medications Acetaminophen/Codeine Phosphate (Acetaminophen-Codeine 300-30mg Tab) 1 each PO BID PRN PRN Reason: Pain Last Admin: 11/17/23 09:16 Dose: 1 each Albuterol Sulfate (Albuterol Hfa Inhaler) 2 puff INHALATION RT-Q6H PRN PRN Reason: Shortness Of Breath Last Admin: 11/17/23 08:06 Dose: 2 puff Aripiprazole (Aripiprazole 10 Mg Tab) 10 mg PO DAILY [facility] Last Admin: 11/17/23 09:12 Dose: 10 mg Calcium Carbonate (Calcium Carb-Vit D 500 Mg-5 Mcg Tab) 2 each PO DAILY [facility] Last Admin: 11/17/23 09:10 Dose: 2 each Dapagliflozin (Dapagliflozin Propanediol 10 Mg Tablet) 10 mg PO DAILY [facility] Last Admin: 11/17/23 09:11 Dose: 10 mg Dextrose/Water (Dextrose 50% Syringe 50 Ml) 25 ml IVP PER PROTOCOL PRN; Protocol PRN Reason: Hypoglycemia Dextrose/Water (Dextrose 50% Syringe 50 Ml) 50 ml IVP PER PROTOCOL PRN; Pro tocol PRN Reason: Hypoglycemia Ferrous Sulfate (Ferrous Sulfate 325 Mg Tab) 325 mg PO DAILY [facility] Last Admin: 11/17/23 09:10 Dose: 325 mg Furosemide (Furosemide 20 Mg Tab) 20 mg PO DAILY [facility] Last Admin: 11/17/23 09:11 Dose: 20 mg Glipizide (Glipizide 5 Mg Tab) 5 mg PO DAILY [facility] Last Admin: 11/17/23 09:11 Dose: 5 mg Heparin Sodium (Porcine) (Heparin Sodium 1,000 Un/Ml (10ml Vl)) 0 unit IV PER PROTOCOL PRN; Protocol PRN Reason: Low PTT Hydroxyzine Pamoate (Hydroxyzine Pamoate 25 Mg Cap) 50 mg PO QID PRN PRN Reason: Anxiety Heparin Sodium/Sodium Chloride (25,000 unit/ Sodium Chloride) 250 mls @ 13.227 mls/hr IV .[id number] [facility]; Protocol Last Admin: 11/17/23 09:19 Dose: 15.28 units/kg/hr, 11.227 mls/hr Piperacillin Sod/Tazobactam (Sod 3.375 gm/ Sodium Chloride) 100 mls @ 25 mls/hr IVPB Q8H [facility]; Protocol Last Admin: 11/17/23 13:58 Dose: 25 mls/hr Azithromycin 500 mg/ Sodium (Chloride) 250 mls @ 250 mls/hr IVPB DAILY [facility]; Protocol Stop: 11/18/23 09:59 Last Admin: 11/17/23 09:15 Dose: 250 mls/hr Insulin Aspart (Insulin Aspart (Novolog) 100 Unit/Ml Vial) 0 unit SQ AC-TID [facility]; Protocol Last Admin: 11/17/23 11:58 Dose: Not Given Lamotrigine (Lamotrigine 100 Mg Tab) 200 mg PO HS [facility] Last Admin: 11/16/23 21:15 Dose: 150 mg Lamotrigine (Lamotrigine 100 Mg Tab) 150 mg PO DAILY [facility] Last Admin: 11/17/23 09:12 Dose: 150 mg Losartan Potassium (Losartan 25 Mg Tab) 12.5 mg PO DAILY [facility] Last Admin: 11/17/23 09:11 Dose: 12.5 mg Metoprolol Tartrate (Metoprolol Tartrate 25 Mg Tab) 12.5 mg PO DAILY [facility] Last Admin: 11/17/23 09:11 Dose: 12.5 mg Miscellaneous Information (Pneumonia Protocol Utilized 1 Each Misc) 1 each PO ONCE PRN PRN Reason: Per Protocol Multivitamins (Multivitamins, Thera 1 Each Tab) 1 each PO DAILY [facility] Last Admin: 11/17/23 09:11 Dose: 1 each Pantoprazole Sodium (Pantoprazole 40 Mg Tablet) 40 mg PO DAILY PRN PRN Reason: Acid Reflux Potassium Chloride (Potassium Chloride Er 10 Meq Tab.Er.Prt) 10 meq PO DAILY [facility] Last Admin: 11/17/23 09:11 Dose: 10 meq Trazodone HCl (Trazodone Hcl 100 Mg Tab) 100 mg PO HS PRN PRN Reason: Insomnia Last Admin: 11/16/23 23:39 Dose: 100 mg Social history: Patient started smoking at the age of [age] 1 pack a day. In the past. Alcohol occasionally. Had also done marijuana for pain. Mother is living with her Physical examination: VITAL SIGNS: 97.8, 84, 16, 108 x 72, 97% on 2 L GENERAL: Tired, reclining in bed EYES: Pupils equal. Conjunctiva daniel l. HEENT: External appearance of nose and ears normal, oral cavity grossly normal. NECK: JVD not raised; masses not palpable. HEART: First and second heart sounds are normal; no edema. LUNGS: Respiratory rate normal; clear to auscultation. ABDOMEN: Soft with some distention-as before, mild tender r, liver spleen not palpable, no masses palpable. PSYCH: Alert and oriented x3; mood and affect daniel l. MUSCULOSKELETAL:No Clubbing/cyanosis;muscles-grossly intact. Some back pain INVESTIGATIONS, reviewed in the clinical context: 2D echocardiogram: No right ventricular strain November 16: White count 18.9 hemoglobin 8.1 platelets 286 November 15: White count 24.1 hemoglobin 9.3 platelets 296 sodium 132 potassium 3.8 BUN 49 creatinine 1.0 AST 180 ALT 64 Troponin I 0.774 Procalcitonin 2.13 EKG tracing personally reviewed by me-normal sinus rhythm. Heart rate 115. Nonspecific ST/T wave changes Chest x-ray film personally reviewed by me-hyperinflation. Some interstitial infiltrates CT chest angio for PE:. Cardiomegaly. Hepatic metastasis. Adenopathy. Previous Brain MRI [October 17]: Unremarkable Liver biopsy-poorly differentiated adenocarcinoma CT abdomen pelvis with contrast [October 14]: Numerous large liver metastatic foci. Status postcholecystectomy. Low-density mass occupies noah hepatis. Suggestive of biliary or pancreatic primary. Assessment and plan: -Acute pulm embolism with possible right ventricular strain. Risk factors include decreased mobility and underlying new diagnosis of metastatic cancer IV heparin -IV heparin monitoring Follow PTT -Probable pneumonia suspect gram-negative organism IV Zosyn, azithromycin -Bile duct carcinoma poorly differentiated adenocarcinoma. Has a right chest port. MRI brain negative For chemotherapy, follow-up with Dr. Calin Marino outpatient- -Troponinemia, secondary to PE. No ACS -Microcytic anemia to include iron deficiency from underlying malignancy and nutritional component from decreased oral intake. Received IV iron previously -Bipolar disorder Abilify. Trazodone. Lamictal -Diabetes mellitus type 2 on oral hypoglycemic Follow Accu-Cheks. Glipizide -GERD Protonix -Essential hypertension Cozaar. Metoprolol. -COPD no prior smoker Albuterol as needed -Gastrojejunal bypass 2013 Patient does follow with Dr. Agatha Jaeger -Full code Will switch the patient over to Xarelto tonight. And stop IV heparin Advance care planning: This was discussed at length with the patient and patient's mother at the bedside. Per patient patient's mother and the son both decision making. They do not have any papers. Documents were given to fill out regarding medical POA. At this point patient is a full code. She may be considering DNR. Questions answered at length. Time spent for ACP 25 minutes Past Medical History Past Medical History: Atrial Flutter, Cancer, Diabetes Mellitus, GERD/Reflux, Hyperlipidemia, Hypertension, Osteoarthritis (OA) Additional Past Medical History / Comment(s): migraines, chronic BACK PAIN. DDD, bulging disks, hx Skin CA. GETS NAUSEA WHEN EATING OFTEN, heart murmer, palpitations, hiatal hernia, constipation, History of Any Multi-Drug Resistant Organisms: None Reported Past Surgical History: Bariatric Surgery, Breast Surgery, Section, Cholecystectomy, Hernia Repair, Orthopedic Surgery, Uterine Ablation Additional Past Surgical History / Comment(s): RT Knee arthroscopy. KAILEY MULT TOES Surgery. Sinus Surgery. Gastric Bypass 2013. ka[facility] Breast biopsy. CERVICAL CONE biopsy. PAIN PROC BACK, kailey eyelid procedure, incisional hernia repair, Past Anesthesia/Blood Transfusion Reactions: Previous Problems w/ Anesthesia, Motion Sickness Additional Past Anesthesia/Blood Transfusion Reaction / Comment(s): Woke up once during anesthesia. Mom has difficulty coming out of anesthesia and low b/p. Past Psychological History: Anxiety, Bipolar, Depression, Panic Disorder Smoking Status: Former smoker Past Alcohol Use History: Occasional Past Drug Use History: None Reported
--- NOTE | 2023-11-17 17:30 | US ---
EXAMINATION TYPE: US venous doppler duplex LE DATE OF EXAM: 11/17/2023 1:30 PM COMPARISON: NONE CLINICAL INDICATION: Female, 58 years old with history of bilateral PE, baseline; Bilat PEs SIDE PERFORMED: Bilateral TECHNIQUE: The lower extremity deep venous system is examined utilizing real time linear array sonog roma with graded compression, doppler sonography and color-flow sonography. VESSELS IMAGED: Common Femoral Vein Deep Femoral Vein Greater Saphenous Vein * Femoral Vein Popliteal Vein Small Saphenous Vein * Proximal Calf Veins (* superficial vessels) Right Leg: extensive acute DVT CFV, prox fem vein, GSV, profunda fem vein Left Leg: extensive acute DVT at the EIV, CFV, Prox mid and dst fem vein, GSV, profunda fem vein IMPRESSION: Extensive bilateral lower extremity acute DVT as outlined above; within the groin and upper thigh on the right and within the groin down to the lower thigh on the left.
[2023-11-17 17:38] LABS: Glucose,Whole Blood 79 mg/dL (70-110)
[2023-11-17 18:43] LABS: Glucose,Whole Blood 113 mg/dL (70-110)
[2023-11-17] MEDS: HYDROcodone/APAP 5-325MG 1 EACH TAB PO PRN (19:06)
[2023-11-17 20:46] LABS: Glucose,Whole Blood 112 mg/dL (70-110)
[2023-11-17] MEDS: Rivaroxaban Initiation Dose--VTE 15 MG TAB PO SCH (20:46)
[2023-11-18] MEDS ORDERED: HYDROcodone/APAP 5-325MG 1 EACH TAB ONE (01:42)
[2023-11-18 06:11] LABS: Glucose,Whole Blood 122 mg/dL (70-110)
[2023-11-18 11:30] LABS: Glucose,Whole Blood 123 mg/dL (70-110)
--- NOTE | 2023-11-18 12:44 | P.PN ---
Subjective Progress Note Date: 11/18/23 Principal diagnosis: Gastrointestinal cancer. Patient is a 58-year-old white female with past medical history significant for diabetes mellitus, hyperlipidemia, hypertension, heart failure, and cancer. She did have a recent hospitalization in September,. Abdominal CT and pelvis CAT scan identifying numerous large liver metastatic foci. Prior cholecystectomy with low-density mass occupying noah hepatis suggesting, possibly biliary or pancreatic primary. Underwent CT-guided liver biopsy on 10/18/2023, and cytology was positive for poorly differentiated adenocarcinoma. Possible cholangiocarcinoma versus metastasis from a different site. She was scheduled to have her first appointment with her oncologist yesterday. Recently had a Mediport placed. Not currently on any systemic treatment. Developed some shortness of breath starting approximately 24 hours prior to presentation to the emergency department. She denies any symptoms such as fever, chest pain, cough, sputum production or hemoptysis, lightheadedness or syncopal events. Chest CTA was technically limited exam, however, findings consistent with left upper lobe segmental and possibly right lower lobe segmental pulmonary embolism. Questionable borderline RV strain. Bilateral lower lobe atelectasis versus infiltrate. Hepatic and pulmonary metastasis suspected. Multiple bilateral pulmonary nodules, larger and more numerous than recent CTA. There are new findings when compared to most recent chest CTA done 10/15/2023. She is currently sitting up in bed, in the emergency department. She is on 3 L/min nasal cannula. SpO2 is 96%. No respiratory distress. Heart rate is 86 bpm. Blood pressure 93/57. Afebrile with a temperature of 98.2 F. Currently on a heparin infusion per high intensity protocol. No unilateral lower extremity swelling. An echocardiogram was taken earlier, and results are pending. CBC: WBC count 24.1, hemoglobin 9.3, hematocrit 29.5, platelets 296. Most recent APTT 87.4. CMP: Sodium 132, potassium 3.8, chloride 94, serum bicarb 33, BUN 49, creatinine 1, glucose 136. Total bilirubin 4.3. LFTs mildly elevated. Troponins elevated at 0.774, 0.693 respectively. NT proBNP 794. Procalcitonin elevated at 2.13. Currently covered on a combination of antibiotics including azithromycin and Zosyn which were started in the emergency department. Hemodynamics are stable at the moment. Progress note dated November 18, 2023. 58-year-old female who was recently diagnosed with a cancer involving the gastrointestinal tract. According to the pathology, this could be a pancreatic cancer, or cholangiocarcinoma, or even a breast cancer. Unfortunately, the patient has metastasis to the liver. She has not started chemotherapy as yet. The patient presented with shortness of breath, and was discovered to have bilateral pulmonary emboli. In addition, Dopplers of the lower extremities revealed bilateral lower extremity DVT. The patient is seen today in room 379. The patient is currently on oxygen at 2 L. She is getting Zosyn and Xarelto. Her procalcitonin level was 2.13. No new labs today. Her most recent PTT was 46.2. Glucose was 123. Abdominal ultrasound showed multiple liver metastasis. Objective - Vital Signs Vital signs: Vital Signs Temp 98.0 F 11/18/23 08:34 Pulse 102 H 11/18/23 08:34 Resp 20 11/18/23 08:34 BP 101/57 11/18/23 08:34 Pulse Ox 92 L 11/18/23 08:34 FiO2 Intake & Output 11/17/23 11/18/23 11/18/23 18:59 06:59 18:59 Intake Total 124.245 260 Output Total 300 Balance 124.245 -40 Weight 79.1 kg Intake: IV 20 Invasive Line 1 10 Invasive Line 2 10 Intake, IV Titration 124.245 Amount Heparin Sod,Pork in 0.45% 124.245 NaCl 25,000 unit In 0.45 % NaCl 1 250ml.bag @ 18 UNITS/KG/HR 13.227 mls/hr IV .[id number] [facility] Rx#: [id number] Oral 240 Output: Urine 300 Other: Voiding Method External Catheter - Exam No acute distress, oriented 3. Very lethargic and somnolent. Currently on 2 L nasal cannula. HEENT examination is grossly unremarkable. Mucous membranes are moist. No oral lesions. Neck supple. Full range of motion. No adenopathy thyromegaly or neck vein distention. Cardiovascular examination reveals regular rhythm rate. S1-S2 normal. No S3 or S4. No discernible murmur noted. Lungs reveal clear breath sounds. Breath sounds are equal bilaterally. No adventitious lung sounds including wheezes rhonchi or crackles. Abdomen soft bowel sounds are heard. No masses or tenderness. Extremities are intact. No cyanosis clubbing or edema. Skin is without rash or lesion. Neurologic examination is brief but nonfocal. - Labs CBC & Chem 7: 11/17/23 02:49 11/16/23 12:00 Labs: Abnormal Lab Results - Last 24 Hours (Table) 11/17/23 11/17/23 11/18/23 Range/Units 18:42 20:45 05:08 APTT 46.2 H (22.0-30.0) sec POC Glucose (mg/dL) 113 H 112 H (70-110) mg/dL 11/18/23 11/18/23 Range/Units 06:10 11:26 APTT (22.0-30.0) sec POC Glucose (mg/dL) 122 H 123 H (70-110) mg/dL Microbiology - Last 24 Hours (Table) 11/16/23 14:27 Blood Culture - Preliminary Blood Assessment and Plan Assessment: Bilateral segmental/subsegmental pulmonary embolism, with questionable RV strain. Bibasilar atelectasis versus pneumonia. Acute hypoxemic respiratory failure, secondary to above. Metastatic poorly differentiated adenocarcinoma, diagnosed via CT-guided liver biopsy on 10/18/2023, and cytology was positive for poorly differentiated adenocarcinoma. Possible biliary or pancreatic primary. Multiple metastatic bilateral pulmonary nodules. Acute leukocytosis. Microcytic anemia. Elevated troponins, rule out non-ST elevation MA. Recent hospitalization and Mediport placement. Diabetes mellitus. History of hyperlipidemia. History of hypertension. History of heart failure with preserved ejection fraction. History of GERD. Former tobacco smoker. Plan: Plan dated November 18, 2023. The patient is seen today in room 379. She was somewhat lethargic and somnolent, likely from narcotic. The patient currently has been transition to Xarelto. She continues on 2 L of oxygen. Dopplers of the lower extremities revealed DVT both in the right and left leg. The patient's overall prognosis remains very poor. The patient has metastatic disease, with a primary that sought to be either pancreatic, or cholangiocarcinoma. Labs, x-rays, and medications are reviewed. The patient will need lifelong anticoagulation. The patient has not started treatment yet for her cancer. The patient appears very weak and frail, and likely will not do well with chemotherapy. Time with Patient: Less than 30
[2023-11-18] MEDS: SODIUM CHLORIDE 0.9% 100 ML ONE (13:00)
--- NOTE | 2023-11-18 13:28 | P.CONS ---
History of Present Illness - Reason for Consult Consult date: 11/17/23 HCC Requesting physician: Jamel Roach - Chief Complaint SOB - History of Present Illness Ms. Goodwin is a 58-year-old woman with PMH significant for atrial flutter, COPD, DMII. Pt presented to [facility] ER September with c/o N and progressive anorexia x 8 days, occasional emesis. Associated chest discomfort in the right side of the chest radiating to the back over the last few days without any dyspnea, hemoptysis, fevers, or chills, 10 to 20 pound weight loss over the previous 1 to 2 months. She had had an EGD with esophageal dilation about 2 weeks prior to presentation. Reported 40 year pack Hx of smoking, quit 09/09/2023, no ETOH abuse. Father had multiple cancers and maternal grandmother had breast cancer diagnosed when she was older. Pt had EGD on 10/11/2023 for her symptoms, reported widely patent gastrojejunal anastomosis without ulcers along with mod erate to severe tertiary contractions for presbyesophagus. Last colonoscopy was performed on 07/30/2020 with a total of 3 tubular adenomas in the descending colon and transverse colon along with 2 sessile serrated adenomas in the ileocecal valve and hepatic flexure. CT AP 10/15/2023 noted low-density mass occupying the noah hepatis that was felt to be either biliary or pancreatic in origin along with innumerable large metastatic foci concerning for metastatic disease. CTA of the chest revealed no evidence of pulmonary embolism or evidence of metastatic disease to the lungs. 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 CA 19-9 was greater than 10,000. PD-L1 from the original biopsy was 10%, KRAS mutated, MSI-S, low TMB. Iron deficiency and received 4 treatments of IV iron. Most recently, admitted to [facility] from 10/28/2023 through 10/30/2023 for lower extremity edema treated with IV Lasix and transition to oral Lasix. She was due to start chemo tomorrow with cisplatin/gemcitabine/dur valumab. She is admitted with sudden onset SOB, she states it started about a week ago, has been persistent, oxygen saturation 82% at home. She denied any chest pain or pressure, fevers, nausea or vomiting, her abdominal discomfort and distention are stable, no acute changes in bowel or bladder habits, she wears compression stockings for lower extremity swelling, this is unchanged at this time. Review of Systems 14 point ROS is neg except as stated in HPI Past Medical History Past Medical History: Atrial Flutter, Cancer, Diabetes Mellitus, GERD/Reflux, Hyperlipidemia, Hypertension, Osteoarthritis (OA) Additional Past Medical History / Comment(s): migraines, chronic BACK PAIN. DDD, bulging disks, hx Skin CA. GETS NAUSEA WHEN EATING OFTEN, heart murmer, palpitations, hiatal hernia, constipation, History of Any Multi-Drug Resistant Organisms: None Reported Past Surgical History: Bariatric Surgery, Breast Surgery, Section, Cholecystectomy, Hernia Repair, Orthopedic Surgery, Uterine Ablation Additional Past Surgical History / Comment(s): RT Knee arthroscopy. KAILEY MULT TOES Surgery. Sinus Surgery. Gastric Bypass 2013. kailey Breast biopsy. CERVICAL CONE biopsy. PAIN PROC BACK, kailey eyelid procedure, incisional hernia repair, Past Anesthesia/Blood Transfusion Reactions: Previous Problems w/ Anesthesia, Motion Sickness Additional Past Anesthesia/Blood Transfusion Reaction / Comm: Woke up once during anesthesia. Mom has difficulty coming out of anesthesia and low b/p. Past Psychological History: Anxiety, Bipolar, Depression, Panic Disorder Smoking Status: Former smoker Past Alcohol Use History: Occasional Past Drug Use History: None Reported - Past Family History Father History Unknown: Yes Family Medical History: Cancer Additional Family Medical History / Comment(s): skin cancer Mother Family Medical History: Deep Vein Thrombosis (DVT) Medications and Allergies Home Medications Medication Instructions Recorded Confirmed Type Atorvastatin [Lipitor] 10 mg PO DAILY 07/19/17 11/16/23 History hydrOXYzine pamoate [Vistaril] 50 mg PO QID PRN 07/26/20 11/16/23 History traZODone HCL 100 mg PO HS PRN 07/26/20 11/16/23 History Multivitamin [Multivitamins Adult 1 tab PO DAILY 02/27/22 11/16/23 History Gummies] Biotin [Biotin Disolve] 10,000 mcg PO DAILY 09/02/22 11/16/23 History Metoprolol Tartrate 12.5 mg PO DAILY 09/02/22 11/16/23 History Calcium Carbonate/Vitamin D3 2 tab PO DAILY 10/06/23 11/16/23 History [Calcium 500 mg Chewable Tablet] Pantoprazole [Protonix] 40 mg PO DAILY PRN 10/06/23 11/16/23 History Ferrous Sulfate [Iron (65 MG 325 mg PO DAILY 10/08/23 11/16/23 History Elemental)] ARIPiprazole [Abilify] 10 mg PO DAILY 10/15/23 11/16/23 History Albuterol Sulfate [Albuterol 2 puff PO RT-Q6H PRN 10/15/23 11/16/23 History Sulfate Hfa] lamoTRIgine [LaMICtal] 150 mg PO DAILY 10/15/23 11/16/23 History lamoTRIgine [LaMICtal] 200 mg PO HS 10/15/23 11/16/23 History Losartan [Cozaar] 12.5 mg PO DAILY 10/20/23 11/16/23 History Acetaminophen-Codeine 300-30mg 1 tab PO BID PRN 11/16/23 11/16/23 History [Tylenol w/codeine #3] Dapagliflozin Propanediol [Farxiga] 10 mg PO DAILY 11/16/23 11/16/23 History Furosemide [Lasix] 20 mg PO DAILY 11/16/23 11/16/23 History Potassium Chloride ER [K-Dur 10] 10 meq PO DAILY 11/16/23 11/16/23 History glipiZIDE [Glucotrol] 5 mg PO BID 11/16/23 11/16/23 History Apixaban [Eliquis Starter Pack 5 - 10 mg PO DIRECTED 30 Days 11/17/23 Rx (for VTE)] #1 each Allergies Allergy/AdvReac Type Severity Reaction Status Date / Time grass pollen-perennial rye, Allergy ITCHY,WATERY Verified 11/16/23 14:55 standar EYES AND [grass poll-perennial NOSE rye,std] rivaroxaban [From Xarelto] AdvReac See comment Verified 11/16/23 14:55 tape Allergy tears Uncoded 11/16/23 14:55 skin,rash, states "paper tape is ok" Physical Exam Vitals: Vital Signs Temp Pulse Pulse Resp BP BP Pulse Ox 11/17/23 09:17 97.8 F 96 22 101/64 97 11/17/23 08:08 99 11/17/23 04:00 97.8 F 90 18 92/54 98 11/17/23 00:00 98.2 F 95 21 94/57 11/16/23 22:00 58 L 18 118/52 96 11/16/23 18:33 97.9 F 90 16 91/56 97 11/16/23 17:00 96 16 97/51 98 11/16/23 16:00 100 13 95/54 97 11/16/23 15:00 98 18 95/59 91 L 11/16/23 14:17 103 H 20 95/59 97 11/16/23 14:00 100 10 L 96/59 98 11/16/23 13:18 98.2 F 103 H 18 104/63 94 L 11/16/23 13:00 96 20 104/63 96 11/16/23 12:05 102 H 11/16/23 12:01 102 H 20 94/59 98 11/16/23 11:56 103 H 11/16/23 11:51 20 11/16/23 10:47 97.8 F 126 H 18 93/64 90 L Intake and Output 11/16/23 11/17/23 11/17/23 22:59 06:59 14:59 Intake Total 88.841 124.245 Balance 88.841 124.245 Intake: Intake, IV Titration 88.841 124.245 Amount Heparin Sod,Pork in 0.45% 88.841 124.245 NaCl 25,000 unit In 0.45 % NaCl 1 250ml.bag @ 18 UNITS/KG/HR 13.227 mls/hr IV .[id number] [facility] Rx#: [id number] Other: Voiding Method External Catheter Weight 73.482 kg - Constitutional General appearance: cooperative, mild distress, thin - EENT Eyes: anicteric sclerae, EOMI ENT: hearing grossly normal, normal oropharynx - Neck Neck: no lymphadenopathy - Respiratory Respiratory: bilateral: CTA - Cardiovascular Rhythm: regular Heart sounds: normal: S1, S2 Abnormal Heart Sounds: no systolic murmur, no diastolic murmur, no rub, no S3 Gallop, no S4 Gallop, no click, no other leg Peripheral Edema: bilateral: Trace - Gastrointestinal General gastrointestinal: no absent bowel sounds, no decreased bowel sounds, distended, no hepatomegaly, no hyperactive bowel sounds, normal bowel sounds, no organomegaly, no rigid, no scaphoid, soft, no splenomegaly, tenderness, no umbilical hernia, no ventral hernia Localized gastrointestinal: tender: RLQ, LLQ - Integumentary Integumentary: pale - Neurologic Neurologic: CNII-XII intact - Musculoskeletal Musculoskeletal: generalized weakness ( ) - Psychiatric Psychiatric: A&O x's 3, appropriate affect, intact judgment & insight Results CBC & Chem 7: 11/17/23 02:49 11/16/23 12:00 Labs: Abnormal Lab Results - Last 24 Hours (Table) 11/16/23 11/16/23 11/16/23 Range/Units 12:00 12:00 12:00 WBC 24.1 H (3.8-10.6) k/uL RBC (3.80-5.40) m/uL Hgb 9.3 L (11.4-16.0) gm/dL Hct 29.5 L (34.0-46.0) % MCV 75.2 L (80.0-100.0) fL MCH 23.7 L (25.0-35.0) pg RDW 19.0 H (11.5-15.5) % Neutrophils # 21.3 H (1.3-7.7) k/uL Monocytes # (0-1.0) k/uL Eosinophils # (0-0.7) k/uL PT 13.4 H (10.0-12.5) sec INR 1.3 H (<1.2) APTT (22.0-30.0) sec Sodium 132 L (137-145) mmol/L Chloride 94 L (98-107) mmol/L Carbon Dioxide 33 H (22-30) mmol/L BUN 49 H (7-17) mg/dL Glucose 136 H (74-99) mg/dL Total Bilirubin 4.3 H (0.2-1.3) mg/dL AST 180 H (14-36) U/L ALT 64 H (4-34) U/L Alkaline Phosphatase 744 H (38-126) U/L Troponin I (0.000-0.034) ng/mL Total Protein 5.9 L (6.3-8.2) g/dL Albumin 2.6 L (3.5-5.0) g/dL Procalcitonin (0.02-0.50) ng/mL 11/16/23 11/16/23 11/16/23 Range/Units 12:00 14:36 19:40 WBC (3.8-10.6) k/uL RBC (3.80-5.40) m/uL Hgb (11.4-16.0) gm/dL Hct (34.0-46.0) % MCV (80.0-100.0) fL MCH (25.0-35.0) pg RDW (11.5-15.5) % Neutrophils # (1.3-7.7) k/uL Monocytes # (0-1.0) k/uL Eosinophils # (0-0.7) k/uL PT (10.0-12.5) sec INR (<1.2) APTT 87.4 H (22.0-30.0) sec Sodium (137-145) mmol/L Chloride (98-107) mmol/L Carbon Dioxide (22-30) mmol/L BUN (7-17) mg/dL Glucose (74-99) mg/dL Total Bilirubin (0.2-1.3) mg/dL AST (14-36) U/L ALT (4-34) U/L Alkaline Phosphatase (38-126) U/L Troponin I 0.774 H* (0.000-0.034) ng/mL Total Protein (6.3-8.2) g/dL Albumin (3.5-5.0) g/dL Procalcitonin 2.13 H (0.02-0.50) ng/mL 11/16/23 11/17/23 11/17/23 Range/Units 23:36 02:49 02:49 WBC 18.9 H (3.8-10.6) k/uL RBC 3.34 L (3.80-5.40) m/uL Hgb 8.1 L (11.4-16.0) gm/dL Hct 25.6 L (34.0-46.0) % MCV 76.7 L (80.0-100.0) fL MCH 24.3 L (25.0-35.0) pg RDW 19.1 H (11.5-15.5) % Neutrophils # 15.1 H (1.3-7.7) k/uL Monocytes # 1.3 H (0-1.0) k/uL Eosinophils # 0.8 H (0-0.7) k/uL PT (10.0-12.5) sec INR (<1.2) APTT 54.9 H (22.0-30.0) sec Sodium (137-145) mmol/L Chloride (98-107) mmol/L Carbon Dioxide (22-30) mmol/L BUN (7-17) mg/dL Glucose (74-99) mg/dL Total Bilirubin (0.2-1.3) mg/dL AST (14-36) U/L ALT (4-34) U/L Alkaline Phosphatase (38-126) U/L Troponin I 0.693 H* (0.000-0.034) ng/mL Total Protein (6.3-8.2) g/dL Albumin (3.5-5.0) g/dL Procalcitonin (0.02-0.50) ng/mL 11/17/23 Range/Units 02:49 WBC (3.8-10.6) k/uL RBC (3.80-5.40) m/uL Hgb (11.4-16.0) gm/dL Hct (34.0-46.0) % MCV (80.0-100.0) fL MCH (25.0-35.0) pg RDW (11.5-15.5) % Neutrophils # (1.3-7.7) k/uL Monocytes # (0-1.0) k/uL Eosinophils # (0-0.7) k/uL PT (10.0-12.5) sec INR (<1.2) APTT (22.0-30.0) sec Sodium (137-145) mmol/L Chloride (98-107) mmol/L Carbon Dioxide (22-30) mmol/L BUN (7-17) mg/dL Glucose (74-99) mg/dL Total Bilirubin (0.2-1.3) mg/dL AST (14-36) U/L ALT (4-34) U/L Alkaline Phosphatase (38-126) U/L Troponin I 0.610 H* (0.000-0.034) ng/mL Total Protein (6.3-8.2) g/dL Albumin (3.5-5.0) g/dL Procalcitonin (0.02-0.50) ng/mL Chest x-ray: report reviewed CT scan - chest: report reviewed Assessment and Plan (1) Liver cancer Current Visit: Yes Status: Acute Priority: High Code(s): C22.9 - MALIG NEOPLASM OF LIVER, NOT SPECIFIED PRIMARY OR SEC SNOMED Code(s): 74213374 (2) Pulmonary embolism Current Visit: Yes Status: Acute Priority: High Code(s): I26.99 - OTHER PULMONARY EMBOLISM WITHOUT ACUTE COR PULMONALE SNOMED Code(s): 24065091 Plan: Cholangiocarcinoma -Diagnosis and plan of care as dictated in HPI -Plan to start the first cycle of palliative chemotherapy with cisplatin/G emzar/Imfinzi tomorrow. If patient is not discharged by then, will reschedule. Patient verbalizes understanding Shortness of breath, sudden onset -Diagnosed with bilateral PE. Heparin drip initiated -Doppler bilateral lower extremities for baseline -Ultrasound of the abdomen to assess for ascites, possible palliative paracentesis, since patient is on a heparin drip currently -Eliquis Rx sent, consult case management for co-pay verification Doctor attests: I performed a history and physical examination of this patient, developed impression and plan of care. Discussed with dictator. I agree with dictators note, documented as a scribe.
--- NOTE | 2023-11-18 13:37 | P.PN ---
Subjective Progress Note Date: 11/18/23 Principal diagnosis: Sudden onset shortness of breath. Cholangiocarcinoma, metastatic. In follow-up today patient's respiratory status is stable, she is still experiencing shortness of breath though not as severe as on admit. She has no new complaints. She was assessed for ascites and possible paracentesis but, not enough fluid to remove. She did have a Doppler of the bilateral lower extremities, she is positive for bilateral lower extremity DVT. Objective - Vital Signs Vital signs: Vital Signs Temp 97.8 F 11/18/23 12:56 Pulse 80 11/18/23 12:56 Resp 14 11/18/23 12:56 BP 94/60 11/18/23 12:56 Pulse Ox 95 11/18/23 12:56 FiO2 Intake & Output 11/17/23 11/18/23 11/18/23 18:59 06:59 18:59 Intake Total 124.245 260 Output Total 300 Balance 124.245 -40 Weight 79.1 kg Intake: IV 20 Invasive Line 1 10 Invasive Line 2 10 Intake, IV Titration 124.245 Amount Heparin Sod,Pork in 0.45% 124.245 NaCl 25,000 unit In 0.45 % NaCl 1 250ml.bag @ 18 UNITS/KG/HR 13.227 mls/hr IV .[id number] [facility] Rx#: [id number] Oral 240 Output: Urine 300 Other: Voiding Method External Catheter - Constitutional General appearance: Present: average body habitus, cooperative, mild distress - EENT Eyes: Present: anicteric sclerae, EOMI ENT: Present: hearing grossly normal - Respiratory Respiratory: bilateral: CTA - Cardiovascular Rhythm: regular - Peripheral edema leg Peripheral Edema: bilateral: None - Gastrointestinal General gastrointestinal: Present: distended, soft, tenderness - Neurologic Neurologic: Present: CNII-XII intact - Musculoskeletal Musculoskeletal: Present: generalized weakness - Psychiatric Psychiatric: Present: A&O x's 3, appropriate affect, intact judgment & insight - Labs CBC & Chem 7: 11/17/23 02:49 11/16/23 12:00 Labs: Abnormal Lab Results - Last 24 Hours (Table) 11/17/23 11/17/23 11/18/23 Range/Units 18:42 20:45 05:08 APTT 46.2 H (22.0-30.0) sec POC Glucose (mg/dL) 113 H 112 H (70-110) mg/dL 11/18/23 11/18/23 Range/Units 06:10 11:26 APTT (22.0-30.0) sec POC Glucose (mg/dL) 122 H 123 H (70-110) mg/dL Microbiology - Last 24 Hours (Table) 11/16/23 14:27 Blood Culture - Preliminary Blood - Imaging and Cardiology US - abdomen: report reviewed Venous US: report reviewed Assessment and Plan (1) Liver cancer Current Visit: Yes Status: Acute Priority: High Code(s): C22.9 - MALIG NEOPLASM OF LIVER, NOT SPECIFIED PRIMARY OR SEC SNOMED Code(s): 03859321 (2) Pulmonary embolism Current Visit: Yes Status: Acute Priority: High Code(s): I26.99 - OTHER PULMONARY EMBOLISM WITHOUT ACUTE COR PULMONALE SNOMED Code(s): 06451276 Plan: Cholangiocarcinoma -Diagnosis and plan of care as dictated in consult -Plan to start the first cycle of palliative chemotherapy with cisplatin/Gemza r/Imfinzi Wednesday. If patient is not discharged then will reschedule. Chemo Nurse informed. Patient verbalizes understanding Shortness of breath, sudden onset -Diagnosed with bilateral PE. Heparin drip initiated -Doppler bilateral lower extremities for baseline-pt has BLE DVT -Ultrasound of the abdomen to assess for ascites, not enough fluid for palliative paracentesis -Eliquis Rx sent, consult case management for co-pay verification. Pt started on xarelto. Will defer to Attending Doctor attests: I performed a history and physical examination of this patient, developed impression and plan of care. Discussed with dictator. I agree with dictators note, documented as a scribe.
--- NOTE | 2023-11-18 13:50 | P.PN ---
Subjective Progress Note Date: 11/18/23 Reason for Consult (text): Pulmonary embolism History of present illness: 58-year-old lady with stage IV liver cancer congestive heart failure non-insul in-dependent diabetes COPD and ascites presents to hospital complaining of shortness of breath that is been going on for the last several weeks. She apparently has been at this hospital within the last few weeks with congestive heart failure. I do not have access to those records as the EMR had recently been hacked. On her initial presentation to the ER her white cell count is elevated she is slightly anemic she underwent a CT scan of the chest that revealed pulmonary embolism involving the right lung and also has metastatic liver and lung disease. An EKG shows sinus rhythm with nonspecific ST-T wave changes troponin is elevated at 0.7 hemoglobin is 9.3. Patient is not a candidate for EKOS at this time. She has been started on IV heparin per protocol which she is going to continue I will obtain a 2D echo and decide on further course of action based on how her symptoms evolve. I am going to review her records once they are available. Past medical history is significant for COPD [id number]-intlibwad diabetes stage IV liver cancer ascites and dgw-sqjkuja-zbflncfnb diabetes. There is also history of congestive heart failure and valvular heart disease. Medications at home include Lamictal Kader Lasix Farxiga trazodone Protonix metoprolol Lamictal Cozaar Lipitor glipizide albuterol and Abilify patient is allergic to Xarelto Family history is negative for premature coronary artery disease social history negative for current smoking issues or drug abuse Labs show a white cell count of 24 hemoglobin of 9.3 INR is slightly elevated at 1.3 potassium is 3.8 BUN is 49 creatinine is 1 troponin is elevated at 0.7 BNP 794. 11/16 Patient is seen today in follow-up. She remains in the emergency center. She was started on heparin drip yesterday. Patient is also followed by pulmonary medicine. Limited echocardiogram reveals EF of 65%, mildly increased left ventricular wall thickness. Normal right ventricular size and function and no significant right ventricular dilation. Repeat chest x-ray reveals no acute cardiopulmonary disease. Blood pressure 108/72, heart rate 84, pulse ox 97% on 2 L nasal cannula. Repeat blood work reveals WBC 18.9, hemoglobin 8.1, platelet count 286. Repeat troponins were 0.693 and 0.610. 11/17 Patient is seen today on the cardiac stepdown unit. She has been started on Xarelto and heparin drip discontinued. She is complaining of being in a lot of pain today. Blood pressure 94/60, heart rate 80-100, pulse ox 95% on 2 L nasal cannula. On exam: Patient is comfortable at rest heart rate is 90 bpm blood pressure is 98/60 respirate is 18 there is no jugular venous distention carotid upstroke is diminished there is no bruit chest exam reveals good air entry bilaterally heart exam reveals first and second heart sounds no gallop no murmur no rub abdomen is soft nontender exam extremities did not reveal any edema peripheral pulses are felt abdomen appears distended Assessment: Acute pulmonary embolism History of stage IV liver cancer with CT evidence of lung mets History of congestive heart failure History of ascites Plan: Continue Xarelto at VTE dosing Continue Lasix 20 mg daily oral, losartan 12.5 mg daily and parameters will be placed for systolic blood pressure less than 100, continue Lopressor 12.5 mg daily No evidence of right heart strain on echocardiogram Patient is cleared from cardiology for discharge and patient to follow-up with Dr. ELIAN Fernandez in 2 weeks. Nurse practitioner note has been reviewed, I agree with documented findings and plan of care. Patient was seen and examined. Objective - Vital Signs Vital signs: Vital Signs Temp 98.1 F 11/17/23 19:00 Pulse 56 L 11/18/23 05:38 Resp 16 11/18/23 05:38 BP 95/59 11/18/23 05:38 Pulse Ox 100 11/18/23 05:38 FiO2 Intake & Output 11/17/23 11/18/23 11/18/23 18:59 06:59 18:59 Intake Total 124.245 Balance 124.245 Weight 79.1 kg Intake: Intake, IV Titration 124.245 Amount Heparin Sod,Pork in 0.45% 124.245 NaCl 25,000 unit In 0.45 % NaCl 1 250ml.bag @ 18 UNITS/KG/HR 13.227 mls/hr IV .[id number] [facility] Rx#: [id number] - Labs CBC & Chem 7: 11/17/23 02:49 11/16/23 12:00 Labs: Abnormal Lab Results - Last 24 Hours (Table) 11/17/23 11/17/23 11/18/23 Range/Units 18:42 20:45 05:08 APTT 46.2 H (22.0-30.0) sec POC Glucose (mg/dL) 113 H 112 H (70-110) mg/dL 11/18/23 Range/Units 06:10 APTT (22.0-30.0) sec POC Glucose (mg/dL) 122 H (70-110) mg/dL Microbiology - Last 24 Hours (Table) 11/16/23 14:27 Blood Culture - Preliminary Blood
[2023-11-18 15:47] VITALS: BMI 27.3
[2023-11-18 16:27] LABS: Glucose,Whole Blood 95 mg/dL (70-110)
--- NOTE | 2023-11-18 16:31 | P.PN ---
Progress Note - Text Progress Note Date: 11/18/23 Chief Complaint: Short of breath This is a 58-year-old patient, follows Dr. Rincon. Chronic stable medical conditions include GERD, diabetes, hypertension, hyperlipidemia, osteoarthritis, hiatal hernia. Gastrojejunal gastric bypass in 2013. October 11, 2023:, by Dr. Hooks: EGD with rigid dilator 57 [place] to address lower esophageal sphincter and esophageal dysmotility.. 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 That was placed last week. Follow-up with oncologist Dr. Calin Atkins. Patient was discharged from the hospital last week following admission for congestive heart failure exacerbation with preserved ejection fraction. Also has some ascites but not felt to be enough for paracentesis. Patient presents for increasing shortness of breath for last 2 days. Denies any edema. No cough no fever no chills. Active. Diet. Decreased appetite. CT scan in the ER revealed pulmonary embolism. Started on IV heparin. November 16: Saw the patient earlier today in the ER. Overflow from the floor r. Mother also at the bedside. Getting IV heparin. Patient is having nutritional shakes. Not much of an appetite. Tired. CODE STATUS was discussed. Present time remains full code. Decision maker in case she cannot will be her mother and son. Paperwork was given to her for medical POA. Echo shows normal right ventricular strain. November 17: Patient appears rather sleepy yesterday and today. Patient started on [place] yesterday. Discussed with the patient mother at the bedside. Plan is to change the [place] to p.m. dose. Use Tylenol 3 in the daytime with heating pad. Also cut back Abilify to 5 mg a day. Also stop the Vistaril which is a as needed dose. Will change patient also to Augmentin p.o. Diet and activity was discussed. Increase activity today. Plan for discharge tomorrow. Active Medications Acetaminophen/Codeine Phosphate (Acetaminophen-Codeine 300-30mg Tab) 1 each PO Q8HR PRN PRN Reason: Pain Hydrocodone Bitart/Acetaminophen (Hydrocodone/Apap 5-325mg 1 Each Tab) 1 each PO HS [facility] Albuterol Sulfate (Albuterol Hfa Inhaler) 2 puff INHALATION RT-Q6H PRN PRN Reason: Shortness Of Breath Last Admin: 11/18/23 15:53 Dose: 2 puff Amoxicillin/Clavulanate Potassium (Amoxic-Pot Clav 875-125mg 1 Each Tab) 1 each PO Q12HR [facility]; Protocol Aripiprazole (Aripiprazole 5 Mg Tab) 5 mg PO DAILY [facility] Calcium Carbonate (Calcium Carb-Vit D 500 Mg-5 Mcg Tab) 2 each PO DAILY [facility] Last Admin: 11/18/23 09:35 Dose: 2 each Dapagliflozin (Dapagliflozin Propanediol 10 Mg Tablet) 10 mg PO DAILY [facility] Last Admin: 11/18/23 09:36 Dose: 10 mg Dextrose/Water (Dextrose 50% Syringe 50 Ml) 25 ml IVP PER PROTOCOL PRN; Protocol PRN Reason: Hypoglycemia Dextrose/Water (Dextrose 50% Syringe 50 Ml) 50 ml IVP PER PROTOCOL PRN; Protocol PRN Reason: Hypoglycemia Ferrous Sulfate (Ferrous Sulfate 325 Mg Tab) 325 mg PO DAILY [facility] Last Admin: 11/18/23 09:37 Dose: 325 mg Furosemide (Furosemide 20 Mg Tab) 20 mg PO DAILY [facility] Last Admin: 11/18/23 09:37 Dose: 20 mg Glipizide (Glipizide 5 Mg Tab) 5 mg PO DAILY [facility] Last Admin: 11/18/23 09:36 Dose: 5 mg Insulin Aspart (Insulin Aspart (Novolog) 100 Unit/Ml Vial) 0 unit SQ AC-TID [facility]; Protocol Last Admin: 11/18/23 11:32 Dose: Not Given Lamotrigine (Lamotrigine 100 Mg Tab) 200 mg PO HS [facility] Last Admin: 11/17/23 20:47 Dose: 200 mg Lamotrigine (Lamotrigine 100 Mg Tab) 150 mg PO DAILY [facility] Last Admin: 11/18/23 09:36 Dose: 150 mg Losartan Potassium (Losartan 25 Mg Tab) 12.5 mg PO DAILY [facility] Last Admin: 11/18/23 09:36 Dose: 12.5 mg Metoprolol Tartrate (Metoprolol Tartrate 25 Mg Tab) 12.5 mg PO DAILY [facility] Last Admin: 11/18/23 09:36 Dose: 12.5 mg Miscellaneous Information (Pneumonia Protocol Utilized 1 Each Misc) 1 each PO ONCE PRN PRN Reason: Per Protocol Multivitamins (Multivitamins, Thera 1 Each Tab) 1 each PO DAILY [facility] Last Admin: 11/18/23 09:36 Dose: 1 each Pantoprazole Sodium (Pantoprazole 40 Mg Tablet) 40 mg PO DAILY PRN PRN Reason: Acid Reflux Potassium Chloride (Potassium Chloride Er 10 Meq Tab.Er.Prt) 10 meq PO DAILY [facility] Last Admin: 11/18/23 09:36 Dose: 10 meq Rivaroxaban (Rivaroxaban Initiation Dose--Vte 15 Mg Tab) 15 mg PO BID [facility]; Taper Stop: 12/17/23 20:59 Last Admin: 11/18/23 09:37 Dose: 15 mg Trazodone HCl (Trazodone Hcl 100 Mg Tab) 100 mg PO HS PRN PRN Reason: Insomnia Last Admin: 11/16/23 23:39 Dose: 100 mg Social history: Patient started smoking at the age of [age] 1 pack a day. In the past. Alcohol occasionally. Had also done marijuana for pain. Mother is living with her Physical examination: VITAL SIGNS: 97.8, 80, 14, 94/60, 95% on 2 L GENERAL: Up in recliner, sleepy EYES: Pupils equal. Conjunctiva daniel l. HEENT: External appearance of nose and ears normal, oral cavity grossly normal. NECK: JVD not raised; masses not palpable. HEART: First and second heart sounds are normal; no edema. LUNGS: Respiratory rate normal; clear to auscultation. ABDOMEN: Soft with some distention-as before, mild tender r, liver spleen not palpable, no masses palpable. PSYCH: Alert and oriented x3; mood and affect sleepy but arousable MUSCULOSKELETAL:No Clubbing/cyanosis;muscles-grossly intact. Some back pain INVESTIGATIONS, reviewed in the clinical context: 2D echocardiogram: No right ventricular strain November 16: White count 18.9 hemoglobin 8.1 platelets 286 November 15: White count 24.1 hemoglobin 9.3 platelets 296 sodium 132 potassium 3.8 BUN 49 creatinine 1.0 AST 180 ALT 64 Troponin I 0.774 Procalcitonin 2.13 EKG tracing personally reviewed by me-normal sinus rhythm. Heart rate 115. Nonspecific ST/T wave changes Chest x-ray film personally reviewed by me-hyperinflation. Some interstitial infiltrates CT chest angio for PE:. Cardiomegaly. Hepatic metastasis. Adenopathy. Previous Brain MRI [October 17]: Unremarkable Liver biopsy-poorly differentiated adenocarcinoma CT abdomen pelvis with contrast [October 14]: Numerous large liver metastatic foci. Status postcholecystectomy. Low-density mass occupies noah hepatis. Suggestive of biliary or pancreatic primary. Assessment and plan: -Acute pulm embolism with possible right ventricular strain. Risk factors include decreased mobility and underlying new diagnosis of metastatic cancer IV heparin -Metabolic encephalopathy from medications: New diagnosis Cut back Abilify to 5 mg a day. Change [place] to nightly. DC Vistaril. -IV heparin discontinued -Probable pneumonia suspect gram-negative organism: Improving IV Zosyn, azithromycin. Changed to oral Augmentin -Bile duct carcinoma poorly differentiated adenocarcinoma. Has a right chest port. MRI brain negative For chemotherapy, follow-up with Dr. Calin Marino outpatient- -Troponinemia, secondary to PE. No ACS -Microcytic anemia to include iron deficiency from underlying malignancy and nutritional component from decreased oral intake. Received IV iron previously -Bipolar disorder Abilify. Trazodone. Lamictal -Diabetes mellitus type 2 on oral hypoglycemic Follow Accu-Cheks. Glipizide -GERD Protonix -Essential hypertension Cozaar. Metoprolol. -COPD no prior smoker Albuterol as needed -Gastrojejunal bypass 2013 Patient does follow with Dr. Agatha Jaeger -Full code Advance care planning: [November 17, 2023] This was discussed at length with the patient and patient's mother at the bedside. Per patient patient's mother and the son both decision making. They do not have any papers. Documents were given to fill out regarding medical POA. At this point patient is a full code. She may be considering DNR. Questions answered at length. Time spent for ACP 25 minutes Change [place] to nightly. Cut back Abilify to 5 mg. Stop Vistaril. Tylenol 3 as needed during daytime. K-pad. Past Medical History Past Medical History: Atrial Flutter, Cancer, Diabetes Mellitus, GERD/Reflux, Hyperlipidemia, Hypertension, Osteoarthritis (OA) Additional Past Medical History / Comment(s): migraines, chronic BACK PAIN. DDD, bulging disks, hx Skin CA. GETS NAUSEA WHEN EATING OFTEN, heart murmer, palpitations, hiatal hernia, constipation, History of Any Multi-Drug Resistant Organisms: None Reported Past Surgical History: Bariatric Surgery, Breast Surgery, Section, Cholecystectomy, Hernia Repair, Orthopedic Surgery, Uterine Ablation Additional Past Surgical History / Comment(s): RT Knee arthroscopy. KAILEY MULT TOES Surgery. Sinus Surgery. Gastric Bypass 2013. kailey Breast biopsy. CERVICAL CONE biopsy. PAIN PROC BACK, kailey eyelid procedure, incisional hernia repair, Past Anesthesia/Blood Transfusion Reactions: Previous Problems w/ Anesthesia, Motion Sickness Additional Past Anesthesia/Blood Transfusion Reaction / Comment(s): Woke up once during anesthesia. Mom has difficulty coming out of anesthesia and low b/p. Past Psychological History: Anxiety, Bipolar, Depression, Panic Disorder Smoking Status: Former smoker Past Alcohol Use History: Occasional Past Drug Use History: None Reported
[2023-11-18] MEDS: Acetaminophen-Codeine 300-30mg TAB PO PRN (17:24)
[2023-11-18 20:19] LABS: Glucose,Whole Blood 91 mg/dL (70-110)
[2023-11-18] MEDS: AMOXIC-POT CLAV 875-125MG 1 EACH TAB PO SCH (20:22)
[2023-11-18] MEDS: HYDROcodone/APAP 5-325MG 1 EACH TAB PO SCH (20:23)
[2023-11-19 06:04] LABS: Glucose,Whole Blood 82 mg/dL (70-110)
[2023-11-19] MEDS: INSULIN ASPART (NovoLOG) 100 UNIT/ML VIAL SQ SCH (06:04)
[2023-11-19] MEDS: ARIPiprazole 5 MG TAB PO SCH (08:48)
[2023-11-19 11:21] LABS: Glucose,Whole Blood 82 mg/dL (70-110)
[2023-11-19 12:48] VITALS: RESP 20; TEMP 98.4
--- NOTE | 2023-11-19 14:22 | P.PN ---
Subjective Progress Note Date: 11/19/23 Patient is a 58-year-old white female with past medical history significant for diabetes mellitus, hyperlipidemia, hypertension, heart failure, and cancer. She did have a recent hospitalization in September,. Abdominal CT and pelvis CAT scan identifying numerous large liver metastatic foci. Prior cholecystectomy with low-density mass occupying noah hepatis suggesting, possibly biliary or pancreatic primary. Underwent CT-guided liver biopsy on 10/18/2023, and cytology was positive for poorly differentiated adenocarcinoma. Possible cholangiocarcinoma versus metastasis from a different site. She was scheduled to have her first appointment with her oncologist yesterday. Recently had a Mediport placed. Not currently on any systemic treatment. Developed some shortness of breath starting approximately 24 hours prior to presentation to the emergency department. She denies any symptoms such as fever, chest pain, cough, sputum production or hemoptysis, lightheadedness or syncopal events. Chest CTA was technically limited exam, however, findings consistent with left upper lobe segmental and possibly right lower lobe segmental pulmonary embolism. Questionable borderline RV strain. Bilateral lower lobe atelectasis versus infiltrate. Hepatic and pulmonary metastasis suspected. Multiple bilateral pulmonary nodules, larger and more numerous than recent CTA. There are new findings when compared to most recent chest CTA done 10/15/2023. She is currently sitting up in bed, in the emergency department. She is on 3 L/min nasal cannula. SpO2 is 96%. No respiratory distress. Heart rate is 86 bpm. Blood pressure 93/57. Afebrile with a temperature of 98.2 F. Currently on a heparin infusion per high intensity protocol. No unilateral lower extremity swelling. An echocardiogram was taken earlier, and results are pending. CBC: WBC count 24.1, hemoglobin 9.3, hematocrit 29.5, platelets 296. Most recent APTT 87.4. CMP: Sodium 132, potassium 3.8, chloride 94, serum bicarb 33, BUN 49, creatinine 1, glucose 136. Total bilirubin 4.3. LFTs mildly elevated. Troponins elevated at 0.774, 0.693 respectively. NT proBNP 794. Procalcitonin elevated at 2.13. Currently covered on a combination of antibiotics including azithromycin and Zosyn which were started in the emergency department. Hemodynamics are stable at the moment. Progress note dated November 18, 2023. 58-year-old female who was recently diagnosed with a cancer involving the gastrointestinal tract. According to the pathology, this could be a pancreatic cancer, or cholangiocarcinoma, or even a breast cancer. Unfortunately, the patient has metastasis to the liver. She has not started chemotherapy as yet. The patient presented with shortness of breath, and was discovered to have bilateral pulmonary emboli. In addition, Dopplers of the lower extremities revealed bilateral lower extremity DVT. The patient is seen today in room 379. The patient is currently on oxygen at 2 L. She is getting Zosyn and Xarelto. Her procalcitonin level was 2.13. No new labs today. Her most recent PTT was 46.2. Glucose was 123. Abdominal ultrasound showed multiple liver metastasis. The patient is seen today November 19, 2023 in follow-up on the regular medical floor. She is currently sitting up in bed. Awake and alert in no acute distress. She is fatigued and weak. He is maintaining O2 saturation in the 90s on 2 L/min per nasal cannula. She is afebrile. Hemodynamically stable. Cultures revealed no growth. Glucose 82. She remains on Augmentin. Continued on oral diuretics. Anticoagulated with Xarelto. Objective - Vital Signs Vital signs: Vital Signs Temp 98.4 F 11/19/23 11:10 Pulse 101 H 11/19/23 12:50 Resp 20 11/19/23 11:10 BP 100/63 11/19/23 11:10 Pulse Ox 91 L 11/19/23 12:50 FiO2 Intake & Output 11/18/23 11/19/23 11/19/23 18:59 06:59 18:59 Intake Total 260 540 80 Output Total 900 150 Balance -640 540 -70 Weight 79.1 kg 80.5 kg Intake: IV 20 20 Invasive Line 1 10 10 Invasive Line 2 10 10 Oral 240 540 60 Output: Urine 900 150 Other: Voiding Method External Catheter External Catheter External Catheter # Voids 1 1 - Exam GENERAL EXAM: Alert, weak, frail 58-year-old female, appears older than stated age, on 2 L nasal cannula, fairly comfortable in no apparent distress. HEAD: Normocephalic. EYES: Normal reaction of pupils, equal size. NOSE: Clear with pink turbinates. THROAT: No erythema or exudates. NECK: No masses, no JVD. CHEST: No chest wall deformity. Right chest Mediport in position. LUNGS: Equal air entry with no crackles, wheeze, rhonchi or dullness. CVS: S1 and S2 normal with no audible murmur, regular rhythm. ABDOMEN: No hepatosplenomegaly, normal bowel sounds, no guarding or rigidity. SPINE: No scoliosis or deformity SKIN: No rashes CENTRAL NERVOUS SYSTEM: No focal deficits, tone is normal in all 4 extremities. EXTREMITIES: There is no peripheral edema. No clubbing, no cyanosis. Peripheral pulses are intact. - Labs CBC & Chem 7: 11/17/23 02:49 11/16/23 12:00 Labs: Microbiology - Last 24 Hours (Table) 11/16/23 14:27 Blood Culture - Preliminary Blood Assessment and Plan Assessment: Bilateral segmental/subsegmental pulmonary embolism, with questionable RV strain as reported on chest CTA. Chest CTA indicating filling defects within left upper lobe segmental and possibly right lower lobe segmental pulmonary arteries Bibasilar atelectasis versus pneumonia Acute hypoxemic respiratory failure, secondary to above Metastatic poorly differentiated adenocarcinoma, diagnosed via CT-guided liver biopsy on 10/18/2023, and cytology was positive for poorly differentiated adenocarcinoma. Possible biliary or pancreatic primary. Multiple metastatic bilateral pulmonary nodules, secondary to above Acute leukocytosis. Microcytic anemia Elevated troponins, rule out non-ST elevation CT Recent hospitalization and Mediport placement Diabetes mellitus History of hyperlipidemia History of hypertension History of heart failure with preserved ejection fraction History of GERD Former tobacco smoker, with over [id number] history Plan: The patient was seen and evaluated Labs and medications reviewed Stable on 2 L nasal cannula May require home oxygen Plan is for home with home care To follow closely with medical oncology I have personally seen and examined the patient, performed the documentation and the assessment and plan as written. Number of minutes spent on the visit: 10.
--- NOTE | 2023-11-19 14:58 | P.PN ---
Subjective Progress Note Date: 11/19/23 Reason for Consult (text): Pulmonary embolism History of present illness: 58-year-old lady with stage IV liver cancer congestive heart failure non-insul in-dependent diabetes COPD and ascites presents to hospital complaining of shortness of breath that is been going on for the last several weeks. She apparently has been at this hospital within the last few weeks with congestive heart failure. I do not have access to those records as the EMR had recently been hacked. On her initial presentation to the ER her white cell count is elevated she is slightly anemic she underwent a CT scan of the chest that revealed pulmonary embolism involving the right lung and also has metastatic liver and lung disease. An EKG shows sinus rhythm with nonspecific ST-T wave changes troponin is elevated at 0.7 hemoglobin is 9.3. Patient is not a candidate for EKOS at this time. She has been started on IV heparin per protocol which she is going to continue I will obtain a 2D echo and decide on further course of action based on how her symptoms evolve. I am going to review her records once they are available. Past medical history is significant for COPD [id number] diabetes stage IV liver cancer ascites and eta-zttzkvq-assuwazeh diabetes. There is also history of congestive heart failure and valvular heart disease. Medications at home include Lamictal Kader Lasix Farxiga trazodone Protonix metoprolol Lamictal Cozaar Lipitor glipizide albuterol and Abilify patient is allergic to Xarelto Family history is negative for premature coronary artery disease social history negative for current smoking issues or drug abuse Labs show a white cell count of 24 hemoglobin of 9.3 INR is slightly elevated at 1.3 potassium is 3.8 BUN is 49 creatinine is 1 troponin is elevated at 0.7 BNP 794. 11/16 Patient is seen today in follow-up. She remains in the emergency center. She was started on heparin drip yesterday. Patient is also followed by pulmonary medicine. Limited echocardiogram reveals EF of 65%, mildly increased left ventricular wall thickness. Normal right ventricular size and function and no significant right ventricular dilation. Repeat chest x-ray reveals no acute cardiopulmonary disease. Blood pressure 108/72, heart rate 84, pulse ox 97% on 2 L nasal cannula. Repeat blood work reveals WBC 18.9, hemoglobin 8.1, platelet count 286. Repeat troponins were 0.693 and 0.610. 11/17 Patient is seen today on the cardiac stepdown unit. She has been started on Xarelto and heparin drip discontinued. She is complaining of being in a lot of pain today. Blood pressure 94/60, heart rate 80-100, pulse ox 95% on 2 L nasal cannula. 11/18 Patient has been continued on Xarelto for PE. Blood pressure is 100/63, heart rate 104, pulse ox 91% on 2 L nasal cannula and 88% on room air with activity. On exam: Patient is comfortable at rest heart rate is 90 bpm blood pressure is 98/60 respirate is 18 there is no jugular venous distention carotid upstroke is diminished there is no bruit chest exam reveals good air entry bilaterally heart exam reveals first and second heart sounds no gallop no murmur no rub abdomen is soft nontender exam extremities did not reveal any edema peripheral pulses are felt abdomen appears distended Assessment: Acute pulmonary embolism History of stage IV liver cancer with CT evidence of lung mets History of congestive heart failure was ruled out on previous hospitalization History of ascites Plan: Continue Xarelto at VTE dosing Continue Lasix 20 mg daily oral, losartan 12.5 mg daily and parameters will be placed for systolic blood pressure less than 100, continue Lopressor 12.5 mg daily No evidence of right heart strain on echocardiogram Patient is cleared from cardiology for discharge and patient to follow-up with Dr. ELIAN Fernandez in 2 weeks. Nurse practitioner note has been reviewed, I agree with documented findings and plan of care. Patient was seen and examined. Objective - Vital Signs Vital signs: Vital Signs Temp 98.4 F 11/19/23 11:10 Pulse 101 H 11/19/23 12:50 Resp 20 11/19/23 11:10 BP 100/63 11/19/23 11:10 Pulse Ox 91 L 11/19/23 12:50 FiO2 Intake & Output 11/18/23 11/19/23 11/19/23 18:59 06:59 18:59 Intake Total 260 540 80 Output Total 900 150 Balance -640 540 -70 Weight 79.1 kg 80.5 kg Intake: IV 20 20 Invasive Line 1 10 10 Invasive Line 2 10 10 Oral 240 540 60 Output: Urine 900 150 Other: Voiding Method External Catheter External Catheter External Catheter # Voids 1 1 - Labs CBC & Chem 7: 11/17/23 02:49 11/16/23 12:00 Labs: Microbiology - Last 24 Hours (Table) 11/16/23 14:27 Blood Culture - Preliminary Blood
[2023-11-19 15:10] VITALS: BP 100/65; PULSE 113
--- NOTE | 2023-11-19 16:33 | P.DS ---
Providers Date of admission: 11/16/23 13:04 Expected date of discharge: 11/19/23 Attending physician: Job Moyer Consults: 11/16/23 14:30 Consult Physician Routine Consulting Provider: Luis Vasquez Consult Reason/Comments: Pneumonia, PE Do you want consulting provider notified?: Yes Consult Physician Routine Consulting Provider: Jasson Yuan Consult Reason/Comments: PE/EKOS Do you want consulting provider notified?: Already Contacted 11/16/23 14:31 Consult Physician Routine Consulting Provider: Israel Marino Consult Reason/Comments: hepatic Cancer Do you want consulting provider notified?: Yes Primary care physician: [facility] Course: Chief Complaint: Short of breath This is a 58-year-old patient, follows Dr. Rincon. Chronic stable medical conditions include GERD, diabetes, hypertension, hyperlipidemia, osteoarthritis, hiatal hernia. Gastrojejunal gastric bypass in 2013. October 11, 2023:, by Dr. Hooks: EGD with rigid dilator 57 [place] Citizen to address lower esophageal sphincter and esophageal dysmotility.. 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 That was placed last week. Follow-up with oncologist Dr. Calin Atkins. Patient was discharged from the hospital last week following admission for congestive heart failure exacerbation with preserved ejection fraction. Also has some ascites but not felt to be enough for paracentesis. Patient presents for increasing shortness of breath for last 2 days. Denies any edema. No cough no fever no chills. Active. Diet. Decreased appetite. CT scan in the ER revealed pulmonary embolism. Started on IV heparin. November 16: Saw the patient earlier today in the ER. Overflow from the floor r. Mother also at the bedside. Getting IV heparin. Patient is having nutritional shakes. Not much of an appetite. Tired. CODE STATUS was discussed. Present time remains full code. Decision maker in case she cannot will be her mother and son. Paperwork was given to her for medical POA. Echo shows normal right ventricular strain. November 17: Patient appears rather sleepy yesterday and today. Patient started on [place] yesterday. Discussed with the patient mother at the bedside. Plan is to change the [place] to p.m. dose. Use Tylenol 3 in the daytime with heating pad. Also cut back Abilify to 5 mg a day. Also stop the Vistaril which is a as needed dose. Will change patient also to Augmentin p.o. Diet and activity was discussed. Increase activity today. Plan for discharge tomorrow. November 18: Patient to be discharged home on Eliquis. More awake. Eating about 50%. Lunch. Discussed. Will be getting home oxygen. 2 L questions answered. Patient yesterday decided to make her CODE STATUS DNR Discussion and discharge planning more than 35 minutes Social history: Patient started smoking at the age of [age] 1 pack a day. In the past. Alcohol occasionally. Had also done marijuana for pain. Mother is living with her Physical examination: VITAL SIGNS: 98.4, 110, 20, 100/65, 88% on room air with activity GENERAL: Up in chair, more awake EYES: Pupils equal. Conjunctiva daniel l. HEENT: External appearance of nose and ears normal, oral cavity grossly normal. NECK: JVD not raised; masses not palpable. HEART: First and second heart sounds are normal; no edema. LUNGS: Respiratory rate normal; clear to auscultation. ABDOMEN: Soft with some distention-as before, mild tender r, liver spleen not palpable, no masses palpable. PSYCH: Alert and oriented x3; mood and affect better MUSCULOSKELETAL:No Clubbing/cyanosis;muscles-grossly intact. Some back pain INVESTIGATIONS, reviewed in the clinical context: 2D echocardiogram: No right ventricular strain November 16: White count 18.9 hemoglobin 8.1 platelets 286 November 15: White count 24.1 hemoglobin 9.3 platelets 296 sodium 132 potassium 3.8 BUN 49 creatinine 1.0 AST 180 ALT 64 Troponin I 0.774 Procalcitonin 2.13 EKG tracing personally reviewed by me-normal sinus rhythm. Heart rate 115. Nonspecific ST/T wave changes Chest x-ray film personally reviewed by me-hyperinflation. Some interstitial infiltrates CT chest angio for PE:. Cardiomegaly. Hepatic metastasis. Adenopathy. Previous Brain MRI [October 17]: Unremarkable Liver biopsy-poorly differentiated adenocarcinoma CT abdomen pelvis with contrast [October 14]: Numerous large liver metastatic foci. Status postcholecystectomy. Low-density mass occupies noah hepatis. Suggestive of biliary or pancreatic primary. Assessment and plan: -Acute pulm embolism with possible right ventricular strain. Risk factors include decreased mobility and underlying new diagnosis of metastatic cancer Being discharged on Eliquis -Metabolic encephalopathy from medications: Better Cut back Abilify to 5 mg a day. Change [place] to nightly. DC Vistaril. -IV heparin discontinued -Probable pneumonia suspect gram-negative organism: Improving IV Zosyn, azithromycin. Changed to oral Augmentin-2 more days outpatient -Bile duct carcinoma poorly differentiated adenocarcinoma. Has a right chest port. MRI brain negative For chemotherapy, follow-up with Dr. Calin Marino outpatient- -Troponinemia, secondary to PE. No ACS -Microcytic anemia to include iron deficiency from underlying malignancy and nutritional component from decreased oral intake. Received IV iron previously -Bipolar disorder Abilify. Trazodone. Lamictal -Diabetes mellitus type 2 on oral hypoglycemic Follow Accu-Cheks. Glipizide -GERD Protonix -Essential hypertension Cozaar. Metoprolol. -COPD no prior smoker Albuterol as needed -Gastrojejunal bypass 2013 Patient does follow with Dr. Agatha Jaeger -DNR-yesterday patient decided to become DNR Advance care planning: [November 17, 2023] This was discussed at length with the patient and patient's mother at the bedside. Per patient patient's mother and the son both decision making. They do not have any papers. Documents were given to fill out regarding medical POA. At this point patient is a full code. She may be considering DNR. Questions answered at length. Time spent for ACP 25 minutes Disposition: Home Past Medical History Past Medical History: Atrial Flutter, Cancer, Diabetes Mellitus, GERD/Reflux, Hyperlipidemia, Hypertension, Osteoarthritis (OA) Additional Past Medical History / Comment(s): migraines, chronic BACK PAIN. DDD, bulging disks, hx Skin CA. GETS NAUSEA WHEN EATING OFTEN, heart murmer, palpitations, hiatal hernia, constipation, History of Any Multi-Drug Resistant Organisms: None Reported Past Surgical History: Bariatric Surgery, Breast Surgery, Section, Cholecystectomy, Hernia Repair, Orthopedic Surgery, Uterine Ablation Additional Past Surgical History / Comment(s): RT Knee arthroscopy. KAILEY MULT TOES Surgery. Sinus Surgery. Gastric Bypass 2013. kailey Breast biopsy. CERVICAL CONE biopsy. PAIN PROC BACK, kailey eyelid procedure, incisional hernia repair, Past Anesthesia/Blood Transfusion Reactions: Previous Problems w/ Anesthesia, Motion Sickness Additional Past Anesthesia/Blood Transfusion Reaction / Comment(s): Woke up once during anesthesia. Mom has difficulty coming out of anesthesia and low b/p. Past Psychological History: Anxiety, Bipolar, Depression, Panic Disorder Smoking Status: Former smoker Past Alcohol Use History: Occasional Past Drug Use History: None Reported Plan - Discharge Summary New Discharge Prescriptions: New ARIPiprazole [Abilify] 5 mg PO DAILY #30 tab Amoxic-Pot Clav 875-125Mg [Augmentin 875-125] 1 each PO Q12HR #4 tab Apixaban [Eliquis Starter Pack (for VTE)] 5 - 10 mg PO DIRECTED 30 Days #1 each HYDROcodone/APAP 5-325MG [[place] 5-325] 1 each PO HS #30 tab Continue Atorvastatin [Lipitor] 10 mg PO DAILY traZODone HCL 100 mg PO HS PRN PRN Reason: Insomnia Biotin [Biotin Disolve] 10,000 mcg PO DAILY Ferrous Sulfate [Iron (65 MG Elemental)] 325 mg PO DAILY Albuterol Sulfate [Albuterol Sulfate Hfa] 2 puff PO RT-Q6H PRN PRN Reason: Shortness Of Breath Potassium Chloride ER [K-Dur 10] 10 meq PO DAILY Dapagliflozin Propanediol [Farxiga] 10 mg PO DAILY Acetaminophen-Codeine 300-30mg [Tylenol w/codeine #3] 1 tab PO BID PRN PRN Reason: Pain glipiZIDE [Glucotrol] 5 mg PO BID Multivitamin [Multivitamins Adult Gummies] 1 tab PO DAILY Metoprolol Tartrate 12.5 mg PO DAILY Pantoprazole [Protonix] 40 mg PO DAILY PRN PRN Reason: Acid Reflux Calcium Carbonate/Vitamin D3 [Calcium 500 mg Chewable Tablet] 2 tab PO DAILY lamoTRIgine [LaMICtal] 150 mg PO DAILY lamoTRIgine [LaMICtal] 200 mg PO HS Losartan [Cozaar] 12.5 mg PO DAILY Furosemide [Lasix] 20 mg PO DAILY Discontinued hydrOXYzine pamoate [Vistaril] 50 mg PO QID PRN PRN Reason: Anxiety ARIPiprazole [Abilify] 10 mg PO DAILY Discharge Medication List Atorvastatin [Lipitor] 10 mg PO DAILY 07/19/17 [History] traZODone HCL 100 mg PO HS PRN 07/26/20 [History] Multivitamin [Multivitamins Adult Gummies] 1 tab PO DAILY 02/27/22 [History] Biotin [Biotin Disolve] 10,000 mcg PO DAILY 09/02/22 [History] Metoprolol Tartrate 12.5 mg PO DAILY 09/02/22 [History] Calcium Carbonate/Vitamin D3 [Calcium 500 mg Chewable Tablet] 2 tab PO DAILY 10/06/23 [History] Pantoprazole [Protonix] 40 mg PO DAILY PRN 10/06/23 [History] Ferrous Sulfate [Iron (65 MG Elemental)] 325 mg PO DAILY 10/08/23 [History] Albuterol Sulfate [Albuterol Sulfate Hfa] 2 puff PO RT-Q6H PRN 10/15/23 [History] lamoTRIgine [LaMICtal] 150 mg PO DAILY 10/15/23 [History] lamoTRIgine [LaMICtal] 200 mg PO HS 10/15/23 [History] Losartan [Cozaar] 12.5 mg PO DAILY 10/20/23 [History] Acetaminophen-Codeine 300-30mg [Tylenol w/codeine #3] 1 tab PO BID PRN 11/16/23 [History] Dapagliflozin Propanediol [Farxiga] 10 mg PO DAILY 11/16/23 [History] Furosemide [Lasix] 20 mg PO DAILY 11/16/23 [History] Potassium Chloride ER [K-Dur 10] 10 meq PO DAILY 11/16/23 [History] glipiZIDE [Glucotrol] 5 mg PO BID 11/16/23 [History] Apixaban [Eliquis Starter Pack (for VTE)] 5 - 10 mg PO DIRECTED 30 Days #1 each 11/17/23 [Rx] ARIPiprazole [Abilify] 5 mg PO DAILY #30 tab 11/19/23 [Rx] Amoxic-Pot Clav 875-125Mg [Augmentin 875-125] 1 each PO Q12HR #4 tab 11/19/23 [Rx] HYDROcodone/APAP 5-325MG [[place] 5-325] 1 each PO HS #30 tab 11/19/23 [Rx] Follow up Appointment(s)/Referral(s): Preeti Fernandez MD [STAFF PHYSICIAN] - 11/24/23 11:00 am Adolph Rincon DO [Primary Care Provider] - 1-2 days (please call and make appointment) Israel Marino MD [STAFF PHYSICIAN] - 11/19/23 8:00 am (This is chemo appt) [facility] [NON-STAFF] - [facility] Visiting Nurse, [NON-STAFF] - (call by tomorrow) Patient Instructions/Handouts: Pulmonary Embolism (DC), Deep Vein Thrombosis (DC), Using Oxygen at Home (DC) Activity/Diet/Wound Care/Special Instructions: related to sore tongue, Dr. Moyer ordered warm water and salt rinse and gargle Q4 hours Discharge/Stand Alone Forms: Who Do I Call?, Personal Senior Biostatistician/Group Leader
== END 2023-11-19 16:37 | disposition home or self-care (01) | DRG 175 ==
LOC: EC 10:47 → 3SCARD 13:04
PROVIDERS: ADMIT Hospitalist; ATTEND Hospitalist
DX: I26.93 Single subsegmental thrombotic pulmonary embolism without acute cor pulmonale (principal); G92.8 Other toxic encephalopathy; J96.01 Acute respiratory failure with hypoxia; J15.69 Pneumonia due to other Gram-negative bacteria; I50.32 Chronic diastolic (congestive) heart failure; C24.0 Malignant neoplasm of extrahepatic bile duct; C78.7 Secondary malignant neoplasm of liver and intrahepatic bile duct; C78.02 Secondary malignant neoplasm of left lung; C78.01 Secondary malignant neoplasm of right lung; J44.0 Chronic obstructive pulmonary disease with (acute) lower respiratory infection; I82.403 Acute embolism and thrombosis of unspecified deep veins of lower extremity, bilateral; I11.0 Hypertensive heart disease with heart failure; K21.9 Gastro-esophageal reflux disease without esophagitis; M19.90 Unspecified osteoarthritis, unspecified site; E78.5 Hyperlipidemia, unspecified; E11.9 Type 2 diabetes mellitus without complications; K44.9 Diaphragmatic hernia without obstruction or gangrene; F41.0 Panic disorder [episodic paroxysmal anxiety]; F31.9 Bipolar disorder, unspecified; D63.0 Anemia in neoplastic disease; Z66 Do not resuscitate; T43.595A Adverse effect of other antipsychotics and neuroleptics, initial encounter; Y92.230 Patient room in hospital as the place of occurrence of the external cause; Z85.07 Personal history of malignant neoplasm of pancreas; Z85.828 Personal history of other malignant neoplasm of skin; Z79.84 Long term (current) use of oral hypoglycemic drugs; Z79.899 Other long term (current) drug therapy; Z79.01 Long term (current) use of anticoagulants; Z87.891 Personal history of nicotine dependence; Z98.84 Bariatric surgery status
CPT/HCPCS: 36415; 71046; 71275; 76705; 80053; 83605; 83735; 83880; 84145; 84484; 85025; 85610; 85730; 87040; 87449; 93005; 93308; 93970; 94640; 94760; 96361; 96365; 96376; 99283; 99285

== ENCOUNTER 2023-11-24 12:14 | Inpatient (IN) | payer MEDICARE ==
--- NOTE | 2023-11-24 12:32 | ED ---
General Adult HPI - General Chief complaint: Recheck/Abnormal Lab/Rx Stated complaint: Low Blood Pressure Time Seen by Provider: 11/24/23 12:15 Source: patient, family, RN notes reviewed, old records reviewed Mode of arrival: wheelchair Limitations: no limitations - History of Present Illness Initial comments: Is a 58-year-old female who presents to the emergency department with a recent history of liver cancer with some metastatic disease according to the family is a stage IV. Patient comes in today because of altered mental status and low blood pressure. Patient's mother states that last night she became altered and it continued today and when the nurse came over they noticed the blood pressure was in the 80s so they sent her end. Patient states she feels extremely fatigued and weak. Patient does not have any fever chills patient does feel mildly short of breath. Patient has not been eating or drinking as much as she should. Patient denies any new abdominal pain she continues to have the right upper quadrant and right-sided flank pain. No history of any trauma - Related Data Home Medications Medication Instructions Recorded Confirmed Atorvastatin [Lipitor] 10 mg PO DAILY 07/19/17 11/24/23 traZODone HCL 100 mg PO HS PRN 07/26/20 11/24/23 Multivitamin [Multivitamins Adult 1 tab PO DAILY 02/27/22 11/24/23 Gummies] Biotin [Biotin Disolve] 10,000 mcg PO DAILY 09/02/22 11/24/23 Metoprolol Tartrate 12.5 mg PO DAILY 09/02/22 11/24/23 Calcium Carbonate/Vitamin D3 2 tab PO DAILY 10/06/23 11/24/23 [Calcium 500 mg Chewable Tablet] Pantoprazole [Protonix] 40 mg PO DAILY PRN 10/06/23 11/24/23 Ferrous Sulfate [Iron (65 MG 325 mg PO DAILY 10/08/23 11/24/23 Elemental)] Albuterol Sulfate [Albuterol 2 puff INHALATION RT-Q6H PRN 10/15/23 11/24/23 Sulfate Hfa] Losartan [Cozaar] 12.5 mg PO DAILY 10/20/23 11/24/23 Acetaminophen-Codeine 300-30mg 1 tab PO BID PRN 11/16/23 11/24/23 [Tylenol w/codeine #3] Dapagliflozin Propanediol [Farxiga] 10 mg PO DAILY 11/16/23 11/24/23 Furosemide [Lasix] 20 mg PO DAILY 11/16/23 11/24/23 Potassium Chloride ER [K-Dur 10] 10 meq PO DAILY 11/16/23 11/24/23 glipiZIDE [Glucotrol] 5 mg PO BID 11/16/23 11/24/23 Apixaban [Eliquis Starter Pack See Taper PO BID 11/24/23 11/24/23 (for VTE)] Fluconazole [Diflucan] 150 mg PO Q2D PRN 11/24/23 11/24/23 HYDROcodone/APAP 5-325MG [[place] 1 tab PO HS 11/24/23 11/24/23 5-325] Nystatin [Nystatin Oral Susp] 500,000 unit PO Q4H 11/24/23 11/24/23 hydrOXYzine pamoate [Vistaril] 50 mg PO QID PRN 11/24/23 11/24/23 Previous Rx's Medication Instructions Recorded ARIPiprazole [Abilify] 5 mg PO DAILY #30 tab 11/19/23 Allergies Allergy/AdvReac Type Severity Reaction Status Date / Time grass pollen-perennial rye, Allergy ITCHY,WATERY Verified 11/24/23 14:33 standar EYES AND [grass poll-perennial NOSE rye,std] rivaroxaban [From Xarelto] AdvReac See comment Verified 11/24/23 14:33 tape Allergy tears Uncoded 11/24/23 14:33 skin,rash, states "paper tape is ok" Review of Systems ROS Statement: Those systems with pertinent positive or pertinent negative responses have been documented in the HPI. ROS Other: All systems not noted in ROS Statement are negative. Past Medical History Past Medical History: Atrial Flutter, Cancer, Diabetes Mellitus, GERD/Reflux, Hyperlipidemia, Hypertension, Osteoarthritis (OA) Additional Past Medical History / Comment(s): migraines, chronic BACK PAIN. DDD, bulging disks, hx Skin CA. GETS NAUSEA WHEN EATING OFTEN, heart murmer, palpitations, hiatal hernia, constipation, History of Any Multi-Drug Resistant Organisms: None Reported Past Surgical History: Bariatric Surgery, Breast Surgery, Section, Cholecystectomy, Hernia Repair, Orthopedic Surgery, Uterine Ablation Additional Past Surgical History / Comment(s): RT Knee arthroscopy. KAILEY MULT TOES Surgery. Sinus Surgery. Gastric Bypass 2013. ka[facility] Breast biopsy. CERVICAL CONE biopsy. PAIN PROC BACK, kailey eyelid procedure, incisional hernia repair, Past Anesthesia/Blood Transfusion Reactions: Previous Problems w/ Anesthesia, Motion Sickness Additional Past Anesthesia/Blood Transfusion Reaction / Comment(s): Woke up once during anesthesia. Mom has difficulty coming out of anesthesia and low b/p. Past Psychological History: Anxiety, Bipolar, Depression, Panic Disorder Smoking Status: Former smoker Past Alcohol Use History: Occasional Past Drug Use History: None Reported - Past Family History Father History Unknown: Yes Family Medical History: Cancer Additional Family Medical History / Comment(s): skin cancer Mother Family Medical History: Deep Vein Thrombosis (DVT) General Exam - General Exam Comments Initial Comments: GENERAL: Patient is well-developed and well-nourished. Patient is nontoxic and well- hydrated and is in moderate distress. ENT: Neck is soft and supple. No significant lymphadenopathy is noted. Oropharynx is clear. Moist mucous membranes. Neck has full range of motion without eliciting any pain. EYES: Patient sclera was icteric. Extraocular movements were intact and pupils were equal round and reactive to light. Eyelids were unremarkable. PULMONARY: Unlabored respirations. Good breath sounds bilaterally. No audible rales rhonchi or wheezing was noted. CARDIOVASCULAR: There is a regular rate and rhythm without any murmurs gallops or rubs. ABDOMEN: Was distended and painful in the right upper quadrant and right flank SKIN: Skin is clear with no lesions or rashes and otherwise unremarkable. NEUROLOGIC: Patient is alert and oriented x3. Cranial nerves II through XII are grossly intact. Motor and sensory are also intact. Normal speech, volume and content. Symmetrical smile. Cerebellar exam grossly intact. MUSCULOSKELETAL: Normal extremities with adequate strength and full range of motion. LYMPHATICS: No significant lymphadenopathy is noted PSYCHIATRIC: Difficult to assess since patient is so fatigued she is having problems answering questions Limitations: no limitations Course Vital Signs 11/24/23 11/24/23 11/24/23 12:15 13:00 14:00 Temperature 97.9 F Pulse Rate 88 87 Respiratory 22 20 Rate Blood Pressure 75/48 81/53 85/58 O2 Sat by Pulse 93 L 99 100 Oximetry Medical Decision Making - Medical Decision Making EKG is interpreted by myself. EKG shows sinus rhythm at 84 bpm AL interval is 186 QRS is 99 QT interval is 406 QTc is 447. Patient's EKG shows no ST segment elevation or depression. Was pt. sent in by a medical professional or institution (LUCRECIA Carrillo, COMMUNITY SERVICE OFFICER COORDINATOR, urgent care, hospital, or custodial...) When possible be specific @ -She was sent in by her visiting nurse Did you speak to anyone other than the patient for history (EMS, parent, family, police, friend...)? What history was obtained from this source @ -No Did you review nursing and triage notes (agree or disagree)? Why? @ -I reviewed and agree with nursing and triage notes Were old charts reviewed (outside hosp., previous admission, EMS record, old EKG, old radiological studies, urgent care reports/EKG's, custodial records)? Report findings @ -I compared today's lab work with prior lab work patient's troponin was elevated sodium was lower bili was the same and creatinine was 1.96. Differential Diagnosis? @ -Chest pain, altered mental status, abdominal pain women, abdominal pain men, vaginal bleeding, weakness, fever, dyspnea, syncope, headache, dizziness, GI ble ed, back pain, seizure, CVA, palpatations, mental health, musculoskeletal EKG interpreted by me (3pts min.). @ -As above X-rays interpreted by me (1pt min.). @ -None done CT interpreted by me (1pt min.). @ -None done U/S interpreted by me (1pt. min.). @ -None done What testing was considered but not performed or refused? (CT, X-rays, U/S, labs)? Why? @ -None What meds were considered but not given or refused? Why? @ -None Did you discuss the management of the patient with other professionals (pr ofessionals i.e. LUCRECIA Carrillo, COMMUNITY SERVICE OFFICER COORDINATOR, lab, RT, psych nurse, director of social services, oil refinery process technician, teacher, community service officer coordinator, complex case manager)? Give summary @ -I spoke with Dr. Moyer and he agreed to admit the patient. I spoke with Dr. Rouse he did not want any more troponins repeated. And stated that he was not can to do any intervention on the patient with liver cancer. Was smoking cessation discussed for >3mins.? @ -No Was critical care preformed (if so, how long)? @ -No Were there social determinants of health that impacted care today? How? (Homelessness, low income, unemployed, alcoholism, drug addiction, trans portation, low edu. Level, literacy, decrease access to med. care, prison, rehab)? @ -No Was there de-escalation of care discussed even if they declined (Discuss DNR or withdrawal of care, Hospice)? DNR status @ -No What co-morbidities impacted this encounter? (DM, HTN, Smoking, COPD, CAD, Cancer, CVA, ARF, Chemo, Hep., AIDS, mental health diagnosis, sleep apnea, morbid obesity)? @ -None Was patient admitted / discharged? Hospital course, mention meds given and route, prescriptions, significant lab abnormalities, going to OR and other pertinent info. @ -Patient was given lactulose for the elevated ammonia level. I spoke with cardiology Dr. Rouse did not want to intervene and he wanted troponin stopped. I spoke with Dr. Moyer he agreed the patient should be admitted I admitted the patient I also consulted oncology patient was given a liter of fluid and the blood pressure came up into the high 90s systolic and was she was feeling considerably better. Undiagnosed new problem with uncertain prognosis? @ -No Drug Therapy requiring intensive monitoring for toxicity (Heparin, Nitro, Ins ulin, Cardizem)? @ -No Were any procedures done? @ -No Diagnosis/symptom? @ -Altered mental status Acute, or Chronic, or Acute on Chronic? @ -Acute Uncomplicated (without systemic symptoms) or Complicated (systemic symptoms)? @ -Complicated Side effects of treatment? @ -No Exacerbation, Progression, or Severe Exacerbation? @ -No Poses a threat to life or bodily function? How? (Chest pain, [place], CA, pneumonia, PE, COPD, DKA, ARF, appy, cholecystitis, CVA, Diverticulitis, Homicidal, Suicidal, threat to staff... and all critical care pts) @ -Yes this could lead to poor perfusion and endorgan dysfunction Diagnosis/symptom? @ -Hypotension Acute, or Chronic, or Acute on Chronic? @ -Acute Uncomplicated (without systemic symptoms) or Complicated (systemic symptoms)? @ -Complicated Side effects of treatment? @ -None Exacerbation, Progression, or Severe Exacerbation] @ -No Poses a threat to life or bodily function? @ -Yes this could lead to poor perfusion and endorgan dysfunction Diagnosis/symptom? @ -Hepatic encephalopathy Acute, or Chronic, or Acute on Chronic? @ -Acute Uncomplicated (without systemic symptoms) or Complicated (systemic symptoms)? @ -Complicated Side effects of treatment? @ -None Exacerbation, Progression, or Severe Exacerbation] @ -No Poses a threat to life or bodily function? @ -No Diagnosis/symptom? @ -Renal insufficiency Acute, or Chronic, or Acute on Chronic? @ -Acute Uncomplicated (without systemic symptoms) or Complicated (systemic symptoms)? @ -Complicated Side effects of treatment? @ -None Exacerbation, Progression, or Severe Exacerbation] @ -No Poses a threat to life or bodily function? @ -No Diagnosis/symptom? @ -Dehydration Acute, or Chronic, or Acute on Chronic? @ -Acute Uncomplicated (without systemic symptoms) or Complicated (systemic symptoms)? @ -Complicated Side effects of treatment? @ -None Exacerbation, Progression, or Severe Exacerbation] @ -No Poses a threat to life or bodily function? @ -No - Lab Data Result diagrams: 11/24/23 13:02 11/24/23 13:02 Lab Results 11/24/23 11/24/23 11/24/23 Range/Units 13:02 13:02 13:02 WBC 22.5 H (3.8-10.6) k/uL RBC 3.79 L (3.80-5.40) m/uL Hgb 9.1 L (11.4-16.0) gm/dL Hct 29.2 L (34.0-46.0) % MCV 77.1 L (80.0-100.0) fL MCH 23.9 L (25.0-35.0) pg MCHC 31.0 (31.0-37.0) g/dL RDW 20.5 H (11.5-15.5) % Plt Count 450 (150-450) k/uL MPV 8.7 Neutrophils % 89 % Lymphocytes % 4 % Monocytes % 3 % Eosinophils % 2 % Basophils % 0 % Neutrophils # 20.0 H (1.3-7.7) k/uL Lymphocytes # 0.9 L (1.0-4.8) k/uL Monocytes # 0.7 (0-1.0) k/uL Eosinophils # 0.5 (0-0.7) k/uL Basophils # 0.1 (0-0.2) k/uL Hypochromasia Marked Anisocytosis Moderate Microcytosis Moderate PT 19.9 H (10.0-12.5) sec INR 2.0 H (<1.2) APTT 31.0 H (22.0-30.0) sec Sodium 131 L (137-145) mmol/L Potassium 5.7 H (3.5-5.1) mmol/L Chloride 97 L (98-107) mmol/L Carbon Dioxide 25 (22-30) mmol/L Anion Gap 9 mmol/L BUN 88 H (7-17) mg/dL Creatinine 1.96 H (0.52-1.04) mg/dL Est GFR (CKD-EPI)AfAm 32 (>60 ml/min/1.73 sqM) Est GFR (CKD-EPI)NonAf 28 (>60 ml/min/1.73 sqM) Glucose 84 (74-99) mg/dL Plasma Lactic Acid Presley (0.7-2.0) mmol/L Calcium 8.6 (8.4-10.2) mg/dL Magnesium 3.1 H (1.6-2.3) mg/dL Total Bilirubin 4.3 H (0.2-1.3) mg/dL AST 353 H (14-36) U/L ALT 96 H (4-34) U/L Alkaline Phosphatase 1140 H (38-126) U/L Ammonia (<30) umol/L Troponin I (0.000-0.034) ng/mL NT-Pro-B Natriuret Pep 1770 pg/mL Total Protein 6.2 L (6.3-8.2) g/dL Albumin 2.7 L (3.5-5.0) g/dL 11/24/23 11/24/23 Range/Units 13:02 13:02 WBC (3.8-10.6) k/uL RBC (3.80-5.40) m/uL Hgb (11.4-16.0) gm/dL Hct (34.0-46.0) % MCV (80.0-100.0) fL MCH (25.0-35.0) pg MCHC (31.0-37.0) g/dL RDW (11.5-15.5) % Plt Count (150-450) k/uL MPV Neutrophils % % Lymphocytes % % Monocytes % % Eosinophils % % Basophils % % Neutrophils # (1.3-7.7) k/uL Lymphocytes # (1.0-4.8) k/uL Monocytes # (0-1.0) k/uL Eosinophils # (0-0.7) k/uL Basophils # (0-0.2) k/uL Hypochromasia Anisocytosis Microcytosis PT (10.0-12.5) sec INR (<1.2) APTT (22.0-30.0) sec Sodium (137-145) mmol/L Potassium (3.5-5.1) mmol/L Chloride (98-107) mmol/L Carbon Dioxide (22-30) mmol/L Anion Gap mmol/L BUN (7-17) mg/dL Creatinine (0.52-1.04) mg/dL Est GFR (CKD-EPI)AfAm (>60 ml/min/1.73 sqM) Est GFR (CKD-EPI)NonAf (>60 ml/min/1.73 sqM) Glucose (74-99) mg/dL Plasma Lactic Acid Presley 1.7 (0.7-2.0) mmol/L Calcium (8.4-10.2) mg/dL Magnesium (1.6-2.3) mg/dL Total Bilirubin (0.2-1.3) mg/dL AST (14-36) U/L ALT (4-34) U/L Alkaline Phosphatase (38-126) U/L Ammonia 57 H (<30) umol/L Troponin I 1.160 H* (0.000-0.034) ng/mL NT-Pro-B Natriuret Pep pg/mL Total Protein (6.3-8.2) g/dL Albumin (3.5-5.0) g/dL Disposition Clinical Impression: Hyponatremia, NSTEMI (non-ST elevated myocardial infarction), Hepatic encephalopathy, Renal insufficiency, Altered mental status, Dehydration Disposition: ADMITTED IP TO THIS [facility] Referrals: Adolph Rincon DO [Primary Care Provider] - 1-2 days Time of Disposition: 15:06
[2023-11-24] MEDS: SODIUM CHLORIDE 0.9% 1,000 ML IV ONE ×2 (13:07→15:26)
[2023-11-24 13:23] LABS: Anisocytosis Moderate; Basophils # (A) 0.1 k/uL (0-0.2); Basophils % (A) 0 %; Eosinophils # (A) 0.5 k/uL (0-0.7); Eosinophils % (A) 2 %; HCT 29.2 % (34.0-46.0); HGB 9.1 gm/dL (11.4-16.0); Hypochromasia Marked; Lymphocytes # (A) 0.9 k/uL (1.0-4.8); Lymphocytes % (A) 4 %; MCH 23.9 pg (25.0-35.0); MCV 77.1 fL (80.0-100.0); Mean Platelet Volume 8.7; Microcytosis Moderate; Monocytes # (A) 0.7 k/uL (0-1.0); Monocytes % (A) 3 %; Neutrophils % (A) 89 %; Platelet Count 450 k/uL (150-450); RBC 3.79 m/uL (3.80-5.40); RDW 20.5 % (11.5-15.5); WBC 22.5 k/uL (3.8-10.6)
[2023-11-24 13:32] LABS: ALT 96 U/L (4-34); African American GFR (CKD) 32 (>60 ml/min/1.73 sqM); Albumin 2.7 g/dL (3.5-5.0); Anion Gap 9 mmol/L; Blood Urea Nitrogen 88 mg/dL (7-17); Calcium 8.6 mg/dL (8.4-10.2); Carbon Dioxide 25 mmol/L (22-30); Chloride 97 mmol/L (98-107); Glucose 84 mg/dL (74-99); Lactic Acid, Venous 1.7 mmol/L (0.7-2.0); Non-African American GFR(CKD) 28 (>60 ml/min/1.73 sqM); Sodium 131 mmol/L (137-145); Total Bilirubin 4.3 mg/dL (0.2-1.3); Total Protein 6.2 g/dL (6.3-8.2)
[2023-11-24 13:34] LABS: AST 353 U/L (14-36); Alkaline Phosphatase 1140 U/L (38-126); Magnesium 3.1 mg/dL (1.6-2.3); Potassium 5.7 mmol/L (3.5-5.1)
[2023-11-24 13:41] LABS: NT-Pro-B-Type Natriuretic Pept 1770 pg/mL
--- NOTE | 2023-11-24 13:53 | XR ---
EXAMINATION TYPE: XR chest 2V DATE OF EXAM: 11/24/2023 1:23 PM CLINICAL INDICATION: Female, 58 years old with history of Difficulty breathing ; COMPARISON: Chest radiographs from 11/17/2023 TECHNIQUE: XR chest 2V Frontal view of the chest. FINDINGS: Lungs/Pleura: There is no evidence of pleural effusion, focal consolidation, or pneumothorax. Pulmonary vascularity: Unremarkable. Heart/mediastinum: Cardiomediastinal silhouette is unremarkable. Musculoskeletal: No acute osseous pathology. Other findings: None Lines/Tubes: [id number] projecting over the right hemithorax with distal tip at the cavoatrial junction. IMPRESSION: No acute cardiopulmonary disease/process.
[2023-11-24 13:55] LABS: Prothrombin Time 19.9 sec (10.0-12.5)
[2023-11-24] MEDS: LACTULOSE 20 GM/30 ML CUP PO ONE (15:22)
[2023-11-24] MEDS: SODIUM CHLORIDE 0.9% 500 ML 500 ML IV ONE (15:25)
[2023-11-24] MEDS ORDERED: PANTOPRAZOLE 40 MG TABLET PO PRN (17:35)
[2023-11-24] MEDS ORDERED: NALOXONE 0.4 MG/ML 1 ML VIAL IV PRN (17:39)
[2023-11-24] MEDS: SODIUM CHLORIDE 0.9% 1,000 ML IV SCH (17:50)
[2023-11-24] MEDS: SODIUM POLYSTYRENE SULFONATE 15 GM/60 ML BOTTLE PO STA (18:15)
[2023-11-24] MEDS: SODIUM BICARB 8.4% 50 ML SYR (1 MEQ/ML) IV STA (18:21)
--- NOTE | 2023-11-24 20:26 | P.HPIM ---
History of Present Illness H&P Date: 11/24/23 Chief Complaint: Tired short of breath This is a 58-year-old patient, follows Dr. Rincon. Chronic stable medical conditions include GERD, diabetes, hypertension, hyperlipidemia, osteoarthritis, hiatal hernia. Gastrojejunal gastric bypass in 2013. CHF with preserved EF October 11, 2023:, by Dr. Hooks: EGD with rigid dilator 57 [place] to address lower esophageal sphincter and esophageal dysmotility.. 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 Port was placed recently. - oncologist Dr. Calin Atkins. Patient was discharged from the hospital last week following admission for congestive heart failure exacerbation with preserved ejection fraction. Also has some ascites but not felt to be enough for paracentesis. Patient is due to start chemotherapy shortly. Patient recently was admitted with CHF with preserved EF exacerbation. S nicol was in the hospital from November 15 through November 18 with PE. Discharged on Eliquis. Just prior to leaving patient had decided to become DNR. Patient now presents feeling increasing short of breath. Tired. Decreased appetite. Not ambulating much. Decreased oral intake. In the ER troponin was 1.1. Patient denies any chest pain. Dr. Smith had spoken to the nutrition therapist Dr. Regis Morrison. Not for any further intervention. Patient denies any cough. Just tired. Review of systems: GEN.: [Tired, decreased appetite, EYES: None HEENT: None NECK: None RESPIRATORY: [Shortness of breath CARDIOVASCULAR: No chest pain GASTROINTESTINAL: [Right upper quadrant drain site pain., Chronic GENITOURINARY: None MUSCULOSKELETAL: Some back pain LYMPHATICS: None HEMATOLOGICAL: None PSYCHIATRY: As above NEUROLOGICAL: None Social history: started smoking at the age of [age] 1 pack a day. In the past. Alcohol occasionally. Had also done marijuana for pain. Mother is living with her Physical examination: VITAL SIGNS: 97.9, 86, 20, 98/40, 97% room air GENERAL: Laying in bed, tired a bit lethargic but arousable EYES: Pupils equal. Conjunctiva daniel l. HEENT: External appearance of nose and ears normal, oral cavity grossly normal. NECK: JVD not raised; masses not palpable. HEART: First and second heart sounds are normal; no edema. LUNGS: Respiratory rate normal; clear to auscultation. ABDOMEN: Soft with distention-, mild tender-on the right side r, liver spleen not palpable, no masses palpable. PSYCH: lethargic but arousable. Able to answer simple questions. MUSCULOSKELETAL:No Clubbing/cyanosis;muscles-grossly intact. Some back pain INVESTIGATIONS, reviewed in the clinical context: November 24, 2023: White count 22.5 hemoglobin 9.1 platelets 450 sodium 131 potassium 5.7 BUN 88 creatinine 1.96 AST 353 ALT 96 alkaline phosphatase 1140 ammonia 57 Troponin I 1.160 proBNP 1770 EKG tracing personally reviewed by me-normal sinus rhythm. Poor R wave progression. ST-T wave changes. Chest x-ray film personally reviewed by me-possible cardiomegaly Prior lab: November 16: Hemoglobin 8.1 white count 18.9 platelets [address] chest angio for PE:. Cardiomegaly. Hepatic metastasis. Adenopathy. Previous Brain MRI October 17: Unremarkable Liver biopsy-poorly differentiated adenocarcinoma CT abdomen pelvis with contrast October 14: Numerous large liver metastatic foci. Status postcholecystectomy. Low-density mass occupies noah hepatis. Suggestive of biliary or pancreatic primary. Assessment and plan: -Acute metabolic encephalopathy/possible hepatic encephalopathy, delirium. From acute kidney injury, and liver dysfunction Hold Abilify. -Acute non-ST elevation IN, type II from hemodynamic mismatch. Patient not a candidate for IV heparin because of already on Eliquis. No chest pain. Cardiology was consulted from ER. Not for any further intervention. Given patient's poor functional status -Possible hepatic encephalopathy Lactulose 20 g twice daily -Acute kidney injury possibly combination of prerenal and ATN. Stop Lasix. Stop Cozaar. Gentle IV hydration -Hyperkalemia secondary to acute kidney injury. Cozaar. Potassium supplement. Hold Cozaar, potassium Renal diet. IV sodium bicarbonate. Kayexalate. -Acute pulm embolism underlying new diagnosis of metastatic cancer, diagnosed November 16, 2023 Eliquis -Bile duct carcinoma poorly differentiated adenocarcinoma. Has a right chest port. MRI brain negative For chemotherapy, follow-up with Dr. Calin Marino outpatient- -Troponinemia, secondary to PE. No ACS -Microcytic anemia to include iron deficiency from underlying malignancy and nutritional component from decreased oral intake. Received IV iron previously -Bipolar disorder Abilify-hold. Trazodone. Lamictal -Diabetes mellitus type 2 on oral hypoglycemic Follow Accu-Cheks. Glipizide-hold -GERD Protonix -Essential hypertension, currently blood pressure running low Cozaar-hold. Metoprolol. -COPD in prior smoker Albuterol as needed -Gastrojejunal bypass 2013 Patient does follow with Dr. Agatha Jaeger -DNR-confirmed with patient. Prognosis guarded. I tried to reach the mother on the phone. Into voicemail. Guarded. Past Medical History Past Medical History: Atrial Flutter, Cancer, Diabetes Mellitus, GERD/Reflux, Hyperlipidemia, Hypertension, Osteoarthritis (OA) Additional Past Medical History / Comment(s): migraines, chronic BACK PAIN. DDD, bulging disks, hx Skin CA. GETS NAUSEA WHEN EATING OFTEN, heart murmer, palpitations, hiatal hernia, constipation, History of Any Multi-Drug Resistant Organisms: None Reported Past Surgical History: Bariatric Surgery, Breast Surgery, Section, Cholecystectomy, Hernia Repair, Orthopedic Surgery, Uterine Ablation Additional Past Surgical History / Comment(s): RT Knee arthroscopy. KAILEY MULT TOES Surgery. Sinus Surgery. Gastric Bypass 2013. kailey Breast biopsy. CERVICAL CONE biopsy. PAIN PROC BACK, kailey eyelid procedure, incisional hernia repair, Past Anesthesia/Blood Transfusion Reactions: Previous Problems w/ Anesthesia, Motion Sickness Additional Past Anesthesia/Blood Transfusion Reaction / Comment(s): Woke up once during anesthesia. Mom has difficulty coming out of anesthesia and low b/p. Past Psychological History: Anxiety, Bipolar, Depression, Panic Disorder Smoking Status: Former smoker Past Alcohol Use History: Occasional Past Drug Use History: None Reported - Past Family History Father History Unknown: Yes Family Medical History: Cancer Additional Family Medical History / Comment(s): skin cancer Mother Family Medical History: Deep Vein Thrombosis (DVT) Medications and Allergies Home Medications Medication Instructions Recorded Confirmed Type Atorvastatin [Lipitor] 10 mg PO DAILY 07/19/17 11/24/23 History traZODone HCL 100 mg PO HS PRN 07/26/20 11/24/23 History Multivitamin [Multivitamins Adult 1 tab PO DAILY 02/27/22 11/24/23 History Gummies] Biotin [Biotin Disolve] 10,000 mcg PO DAILY 09/02/22 11/24/23 History Metoprolol Tartrate 12.5 mg PO DAILY 09/02/22 11/24/23 History Calcium Carbonate/Vitamin D3 2 tab PO DAILY 10/06/23 11/24/23 History [Calcium 500 mg Chewable Tablet] Pantoprazole [Protonix] 40 mg PO DAILY PRN 10/06/23 11/24/23 History Ferrous Sulfate [Iron (65 MG 325 mg PO DAILY 10/08/23 11/24/23 History Elemental)] Albuterol Sulfate [Albuterol 2 puff INHALATION RT-Q6H PRN 10/15/23 11/24/23 History Sulfate Hfa] Losartan [Cozaar] 12.5 mg PO DAILY 10/20/23 11/24/23 History Acetaminophen-Codeine 300-30mg 1 tab PO BID PRN 11/16/23 11/24/23 History [Tylenol w/codeine #3] Dapagliflozin Propanediol [Farxiga] 10 mg PO DAILY 11/16/23 11/24/23 History Furosemide [Lasix] 20 mg PO DAILY 11/16/23 11/24/23 History Potassium Chloride ER [K-Dur 10] 10 meq PO DAILY 11/16/23 11/24/23 History glipiZIDE [Glucotrol] 5 mg PO BID 11/16/23 11/24/23 History ARIPiprazole [Abilify] 5 mg PO DAILY #30 tab 11/19/23 11/24/23 Rx Apixaban [Eliquis Starter Pack See Taper PO BID 11/24/23 11/24/23 History (for VTE)] Fluconazole [Diflucan] 150 mg PO Q2D PRN 11/24/23 11/24/23 History HYDROcodone/APAP 5-325MG [[place] 1 tab PO HS 11/24/23 11/24/23 History 5-325] Nystatin [Nystatin Oral Susp] 500,000 unit PO Q4H 11/24/23 11/24/23 History hydrOXYzine pamoate [Vistaril] 50 mg PO QID PRN 11/24/23 11/24/23 History Allergies Allergy/AdvReac Type Severity Reaction Status Date / Time grass pollen-perennial rye, Allergy ITCHY,WATERY Verified 11/24/23 14:33 standar EYES AND [grass poll-perennial NOSE rye,std] rivaroxaban [From Xarelto] AdvReac See comment Verified 11/24/23 14:33 tape Allergy tears Uncoded 11/24/23 14:33 skin,rash, states "paper tape is ok" Physical Exam Vitals: Vital Signs Temp Pulse Resp BP Pulse Ox 11/24/23 18:14 97 20 93/62 94 L 11/24/23 15:30 86 20 98/40 97 11/24/23 14:00 87 20 85/58 100 11/24/23 13:00 81/53 99 11/24/23 12:15 97.9 F 88 22 75/48 93 L Intake and Output 11/24/23 11/24/23 11/24/23 06:59 14:59 22:59 Other: Weight 72.575 kg Results CBC & Chem 7: 11/24/23 13:02 11/24/23 13:02 Labs: Abnormal Lab Results - Last 24 Hours (Table) 11/24/23 11/24/23 11/24/23 Range/Units 13:02 13:02 13:02 WBC 22.5 H (3.8-10.6) k/uL RBC 3.79 L (3.80-5.40) m/uL Hgb 9.1 L (11.4-16.0) gm/dL Hct 29.2 L (34.0-46.0) % MCV 77.1 L (80.0-100.0) fL MCH 23.9 L (25.0-35.0) pg RDW 20.5 H (11.5-15.5) % Neutrophils # 20.0 H (1.3-7.7) k/uL Lymphocytes # 0.9 L (1.0-4.8) k/uL PT 19.9 H (10.0-12.5) sec INR 2.0 H (<1.2) APTT 31.0 H (22.0-30.0) sec Sodium 131 L (137-145) mmol/L Potassium 5.7 H (3.5-5.1) mmol/L Chloride 97 L (98-107) mmol/L BUN 88 H (7-17) mg/dL Creatinine 1.96 H (0.52-1.04) mg/dL Magnesium 3.1 H (1.6-2.3) mg/dL Total Bilirubin 4.3 H (0.2-1.3) mg/dL AST 353 H (14-36) U/L ALT 96 H (4-34) U/L Alkaline Phosphatase 1140 H (38-126) U/L Ammonia (<30) umol/L Troponin I (0.000-0.034) ng/mL Total Protein 6.2 L (6.3-8.2) g/dL Albumin 2.7 L (3.5-5.0) g/dL 11/24/23 11/24/23 Range/Units 13:02 13:02 WBC (3.8-10.6) k/uL RBC (3.80-5.40) m/uL Hgb (11.4-16.0) gm/dL Hct (34.0-46.0) % MCV (80.0-100.0) fL MCH (25.0-35.0) pg RDW (11.5-15.5) % Neutrophils # (1.3-7.7) k/uL Lymphocytes # (1.0-4.8) k/uL PT (10.0-12.5) sec INR (<1.2) APTT (22.0-30.0) sec Sodium (137-145) mmol/L Potassium (3.5-5.1) mmol/L Chloride (98-107) mmol/L BUN (7-17) mg/dL Creatinine (0.52-1.04) mg/dL Magnesium (1.6-2.3) mg/dL Total Bilirubin (0.2-1.3) mg/dL AST (14-36) U/L ALT (4-34) U/L Alkaline Phosphatase (38-126) U/L Ammonia 57 H (<30) umol/L Troponin I 1.160 H* (0.000-0.034) ng/mL Total Protein (6.3-8.2) g/dL Albumin (3.5-5.0) g/dL
[2023-11-24] MEDS: HYDROmorphone 0.5 MG/0.5 ML SYRINGE IVP STA (21:18)
[2023-11-24] MEDS: LACTULOSE 20 GM/30 ML CUP PO SCH (22:56)
[2023-11-24] MEDS: HYDROcodone/APAP 5-325MG 1 EACH TAB PO SCH (23:48)
[2023-11-25] MEDS: HYDROmorphone 0.5 MG/0.5 ML SYRINGE IVP PRN (01:34)
[2023-11-25 08:02] LABS: ALT 82 U/L (4-34); AST 262 U/L (14-36); African American GFR (CKD) 31 (>60 ml/min/1.73 sqM); Albumin 2.3 g/dL (3.5-5.0); Alkaline Phosphatase 1159 U/L (38-126); Anion Gap 8 mmol/L; Blood Urea Nitrogen 81 mg/dL (7-17); Calcium 8.1 mg/dL (8.4-10.2); Carbon Dioxide 27 mmol/L (22-30); Chloride 102 mmol/L (98-107); Glucose 64 mg/dL (74-99); Non-African American GFR(CKD) 27 (>60 ml/min/1.73 sqM); Sodium 137 mmol/L (137-145); Total Bilirubin 4.1 mg/dL (0.2-1.3); Total Protein 5.5 g/dL (6.3-8.2)
[2023-11-25] MEDS: MULTIVITAMINS, THERA 1 EACH TAB PO SCH (08:12)
[2023-11-25 09:05] LABS: Glucose,Whole Blood 96 mg/dL (70-110)
[2023-11-25] MEDS: FLUCONAZOLE 100 MG TAB PO ONE (12:06)
[2023-11-25] MEDS: MIDODRINE 5 MG TAB PO SCH (12:07)
--- NOTE | 2023-11-25 14:10 | P.NPCON ---
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 Patientwas scheduled to start chemotherapy as outpatient. She also has a history of CHF with preserved ejection fraction. Patient is admitted to the hospital with complaints of shortness of breath and increased weakness. No history of fever chills nausea vomiting. Patient has had abdominal pain on and off. Patient denies any previous history of kidney diseases. No urinary symptoms. Blood pressure has been low with systolic in the 80s. Currently maintained on IV fluids. Losartan and farxiga noted on home med list. No history of use of NSAIDs. Patient was also maintained on Lasix and potassium supplementation. On admission serum creatinine was noted to be 1.9 mg/dL with potassium of 5.7. Previous creatinine was 1.0 on 11/16/2023. Review of Systems as per HPI Past Medical History Past Medical History: Atrial Flutter, Cancer, Diabetes Mellitus, GERD/Reflux, Hyperlipidemia, Hypertension, Osteoarthritis (OA) Additional Past Medical History / Comment(s): migraines, chronic BACK PAIN. DDD, bulging disks, hx Skin CA. GETS NAUSEA WHEN EATING OFTEN, heart murmer, palpitations, hiatal hernia, constipation, History of Any Multi-Drug Resistant Organisms: None Reported Past Surgical History: Bariatric Surgery, Breast Surgery, Section, Cholecystectomy, Hernia Repair, Orthopedic Surgery, Uterine Ablation Additional Past Surgical History / Comment(s): RT Knee arthroscopy. KAILEY MULT TOES Surgery. Sinus Surgery. Gastric Bypass 2013. kailey Breast biopsy. CERVICAL CONE biopsy. PAIN PROC BACK, kailey eyelid procedure, incisional hernia repair, Past Anesthesia/Blood Transfusion Reactions: Previous Problems w/ Anesthesia, Motion Sickness Additional Past Anesthesia/Blood Transfusion Reaction / Comment(s): Woke up once during anesthesia. Mom has difficulty coming out of anesthesia and low b/p. Past Psychological History: Anxiety, Bipolar, Depression, Panic Disorder Smoking Status: Former smoker Past Alcohol Use History: Occasional Past Drug Use History: None Reported - Past Family History Father History Unknown: Yes Family Medical History: Cancer Additional Family Medical History / Comment(s): skin cancer Mother Family Medical History: Deep Vein Thrombosis (DVT) Medications and Allergies Home Medications Medication Instructions Recorded Confirmed Type Atorvastatin [Lipitor] 10 mg PO DAILY 07/19/17 11/24/23 History traZODone HCL 100 mg PO HS PRN 07/26/20 11/24/23 History Multivitamin [Multivitamins Adult 1 tab PO DAILY 02/27/22 11/24/23 History Gummies] Biotin [Biotin Disolve] 10,000 mcg PO DAILY 09/02/22 11/24/23 History Metoprolol Tartrate 12.5 mg PO DAILY 09/02/22 11/24/23 History Calcium Carbonate/Vitamin D3 2 tab PO DAILY 10/06/23 11/24/23 History [Calcium 500 mg Chewable Tablet] Pantoprazole [Protonix] 40 mg PO DAILY PRN 10/06/23 11/24/23 History Ferrous Sulfate [Iron (65 MG 325 mg PO DAILY 10/08/23 11/24/23 History Elemental)] Albuterol Sulfate [Albuterol 2 puff INHALATION RT-Q6H PRN 10/15/23 11/24/23 History Sulfate Hfa] Losartan [Cozaar] 12.5 mg PO DAILY 10/20/23 11/24/23 History Acetaminophen-Codeine 300-30mg 1 tab PO BID PRN 11/16/23 11/24/23 History [Tylenol w/codeine #3] Dapagliflozin Propanediol [Farxiga] 10 mg PO DAILY 11/16/23 11/24/23 History Furosemide [Lasix] 20 mg PO DAILY 11/16/23 11/24/23 History Potassium Chloride ER [K-Dur 10] 10 meq PO DAILY 11/16/23 11/24/23 History glipiZIDE [Glucotrol] 5 mg PO BID 11/16/23 11/24/23 History ARIPiprazole [Abilify] 5 mg PO DAILY #30 tab 11/19/23 11/24/23 Rx Apixaban [Eliquis Starter Pack See Taper PO BID 11/24/23 11/24/23 History (for VTE)] Fluconazole [Diflucan] 150 mg PO Q2D PRN 11/24/23 11/24/23 History HYDROcodone/APAP 5-325MG [[place] 1 tab PO HS 11/24/23 11/24/23 History 5-325] Nystatin [Nystatin Oral Susp] 500,000 unit PO Q4H 11/24/23 11/24/23 History hydrOXYzine pamoate [Vistaril] 50 mg PO QID PRN 11/24/23 11/24/23 History Allergies Allergy/AdvReac Type Severity Reaction Status Date / Time grass pollen-perennial rye, Allergy ITCHY,WATERY Verified 11/24/23 14:33 standar EYES AND [grass poll-perennial NOSE rye,std] rivaroxaban [From Xarelto] AdvReac See comment Verified 11/24/23 14:33 tape Allergy tears Uncoded 11/24/23 14:33 skin,rash, states "paper tape is ok" Physical Exam Vitals: Vital Signs Temp Pulse Resp BP Pulse Ox 11/25/23 12:08 101 H 22 87/47 99 11/25/23 11:27 98 20 88/56 100 11/25/23 10:24 101 H 22 85/56 97 11/25/23 08:09 98.1 F 101 H 18 85/50 98 11/25/23 06:00 102 H 18 93/55 97 11/25/23 05:26 99 18 91/48 98 11/25/23 04:00 101 H 18 90/52 98 11/25/23 02:30 97 18 92/56 97 11/25/23 00:36 102 H 18 94/60 99 11/24/23 22:00 98 18 92/54 98 11/24/23 21:15 100 18 101/62 98 11/24/23 20:26 98 18 95/61 98 11/24/23 20:16 92 16 95/61 100 11/24/23 18:14 97 20 93/62 94 L 11/24/23 15:30 86 20 98/40 97 11/24/23 14:00 87 20 85/58 100 patient is awake, comfortable, no acute distress. Examination of the heart S1 and S2 Examination of the lungs bilateral breath sounds are heard Abdomen is soft with tenderness noted in the right upper quadrant. 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 Acute kidney injury, ATN secondary to hypotension. Check UA. Hold angiotensin receptor blockers and diuretics. Currently maintained on IV fluids. 2. Metastatic cholangiocarcinoma, recently diagnosed almost started on chemotherapy 3. History of CHF with preserved ejection fraction. 4. Mental status changes possibly related to hepatic encephalopathy. 5. Hyperkalemia associated with acute kidney injury any in the setting of use of MAGGI inhibitor's and potassium supplementation 6. History of bipolar disorder Plan: continue with IV fluids Accurate I's and O's Continue to hold Cozaar recommend to avoid use of Kayexalate. We can use lokelma if serum potassium remains elevated.next Thank you for the consultation. We will continue to follow the patient with you during her hospitalization
--- NOTE | 2023-11-25 20:21 | P.PN ---
Progress Note - Text Progress Note Date: 11/25/23 Chief Complaint: Tired short of breath This is a 58-year-old patient, follows Dr. Rincon. Chronic stable medical conditions include GERD, diabetes, hypertension, hyperlipidemia, osteoarthritis, hiatal hernia. Gastrojejunal gastric bypass in 2013. CHF with preserved EF October 11, 2023:, by Dr. Hooks: EGD with rigid dilator 57 Icelandic to address lower esophageal sphincter and esophageal dysmotility.. 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 Port was placed recently. - oncologist Dr. Calin Atkins. Patient was discharged from the hospital last week following admission for congestive heart failure exacerbation with preserved ejection fraction. Also has some ascites but not felt to be enough for paracentesis. Patient is due to start chemotherapy shortly. Patient recently was admitted with CHF with preserved EF exacerbation. Subsequently was in the hospital from November 15 through November 18 with PE. Discharged on Eliquis. Just prior to leaving patient had decided to become DNR. Patient now presents feeling increasing short of breath. Tired. Decreased appetite. Not ambulating much. Decreased oral intake. In the ER troponin was 1.1. Patient denies any chest pain. Dr. Smith had spoken to the temple meat cutter Dr. Regis Morrison. Not for any further intervention. Patient denies any cough. Just tired. November 24: Patient was seen this afternoon. Mother at the bedside. Patient more awake today. Tired. Decreased appetite. Discussed. Patient today wants to go back to being a full code. Oncology ordered patient to receive fluorouracil. And leucovorin. Patient initial symptoms felt to be combination of r acute kidney injury and hepatic encephalopathy. Patient remains on lactulose Active Medications Hydrocodone Bitart/Acetaminophen (Hydrocodone/Apap 5-325mg 1 Each Tab) 1 each PO HS MARILOU Last Admin: 11/24/23 23:48 Dose: Not Given Albuterol Sulfate (Albuterol Nebulized 2.5 Mg/3 Ml) 2.5 mg INHALATION RT-Q6H PRN PRN Reason: Shortness Of Breath Dabigatran (Dabigatran 75 Mg Cap) 75 mg PO BID MARILOU; Protocol Dexamethasone Sodium Phosphate (Dexamethasone Sod Phosphate 10 Mg/Ml 1 Ml Vial) 10 mg IV ONCE ONE Stop: 11/26/23 16:01 Famotidine (Famotidine 20 Mg/2 Ml Vial) 20 mg IV ONCE ONE Stop: 11/26/23 16:01 Fluconazole (Fluconazole 100 Mg Tab) 50 mg PO DAILY [facility]; Protocol Hydromorphone HCl (Hydromorphone 0.5 Mg/0.5 Ml Syringe) 0.5 mg IVP Q4HR PRN PRN Reason: Pain Last Admin: 11/25/23 01:34 Dose: 0.5 mg Sodium Chloride (Saline 0.9%) 1,000 mls @ 100 mls/hr IV .Q10H [facility] Last Admin: 11/25/23 08:17 Dose: 100 mls/hr Oxaliplatin 100 mg/Oxaliplatin 50 mg/ Dextrose/Water 530 mls @ 265 mls/hr IV ONCE ONE Stop: 11/26/23 17:59 Leucovorin Calcium 700 mg/Leucovorin Calcium 200 mg/Leucovorin Calcium 50 mg/Dextrose/Water 560 mls @ 280 mls/hr IV ONCE ONE Stop: 11/26/23 17:59 Fluorouracil 3,700 mg/ Sodium (Chloride) 250 mls @ 5.435 mls/hr IV ONCE ONE Stop: 11/28/23 15:59 Ondansetron HCl 16 mg/ Sodium (Chloride) 58 mls @ 232 mls/hr IVPB ONCE ONE Stop: 11/26/23 16:14 Lactulose (Lactulose 20 Gm/30 Ml Cup) 20 gm PO BID [facility] Last Admin: 11/25/23 08:11 Dose: 20 gm Midodrine (Midodrine 5 Mg Tab) 5 mg PO AC-TID [facility] Last Admin: 11/25/23 17:53 Dose: 5 mg Multivitamins (Multivitamins, Thera 1 Each Tab) 1 each PO DAILY [facility] Last Admin: 11/25/23 08:12 Dose: 1 each Naloxone HCl (Naloxone 0.4 Mg/Ml 1 Ml Vial) 0.2 mg IV Q2M PRN PRN Reason: Opioid Reversal Ondansetron HCl (Ondansetron 4 Mg/2 Ml Vial) 4 mg IVP Q8HR PRN PRN Reason: Nausea And Vomiting Pantoprazole Sodium (Pantoprazole 40 Mg Tablet) 40 mg PO DAILY PRN PRN Reason: Acid Reflux Social history: started smoking at the age of [age] 1 pack a day. In the past. Alcohol occasionally. Had also done marijuana for pain. Mother is living with her Physical examination: VITAL SIGNS: 98, 103, 18, 92/63, 99% on 3 L GENERAL: Laying in bed, tired more awake EYES: Pupils equal. Conjunctiva daniel l. HEENT: External appearance of nose and ears normal, oral cavity grossly normal. NECK: JVD not raised; masses not palpable. HEART: First and second heart sounds are normal; no edema. LUNGS: Respiratory rate normal; clear to auscultation. ABDOMEN: Soft with distention-, mild tender-on the right side r, liver spleen not palpable, no masses palpable. PSYCH: l more awake, answering questions MUSCULOSKELETAL:No Clubbing/cyanosis;muscles-grossly intact. Some back pain INVESTIGATIONS, reviewed in the clinical context: November 24: Sodium 137 potassium 4 BUN 81 creatinine 1.99 AST 262 ALT 82 alkaline phosphatase 1159 November 24, 2023: White count 22.5 hemoglobin 9.1 platelets 450 sodium 131 potassium 5.7 BUN 88 creatinine 1.96 AST 353 ALT 96 alkaline phosphatase 1140 ammonia 57 Troponin I 1.160 proBNP 1770 EKG tracing personally reviewed by me-normal sinus rhythm. Poor R wave progression. ST-T wave changes. Chest x-ray film personally reviewed by me-possible cardiomegaly Prior lab: November 16: Hemoglobin 8.1 white count 18.9 platelets [address] chest angio for PE:. Cardiomegaly. Hepatic metastasis. Adenopathy. Previous Brain MRI October 17: Unremarkable Liver biopsy-poorly differentiated adenocarcinoma CT abdomen pelvis with contrast October 14: Numerous large liver metastatic foci. Status postcholecystectomy. Low-density mass occupies noah hepatis. Suggestive of biliary or pancreatic primary. Assessment and plan: -Acute metabolic encephalopathy/possible hepatic encephalopathy, delirium. From acute kidney injury, and liver dysfunction: Better Hold Abilify. -Acute non-ST elevation AL, type II from hemodynamic mismatch. Patient not a candidate for IV heparin because of already on Eliquis. No chest pain. Cardiology was consulted from ER. Not for any further intervention, per Dr. Smith who spoke to Dr. Kirsten Morrison.. Given patient's poor functional status - hepatic encephalopathy: Better Lactulose 20 g twice daily -Acute kidney injury possibly combination of prerenal and ATN. Stop Lasix. Stop Cozaar. Gentle IV hydration -Hyperkalemia secondary to acute kidney injury. Cozaar. Potassium supplement.: Better Hold Cozaar, potassium Renal diet. IV sodium bicarbonate. Kayexalate. -Acute pulm embolism underlying metastatic cancer, diagnosed November 16, 2023 Eliquis -Bile duct carcinoma poorly differentiated adenocarcinoma. Has a right chest port. MRI brain negative Given fluorouracil, leucovorin Started on chemotherapy by Dr. Atkins -Microcytic anemia to include iron deficiency from underlying malignancy and nutritional component from decreased oral intake. Received IV iron previously -Bipolar disorder Abilify-hold. Trazodone. Lamictal -Diabetes mellitus type 2 on oral hypoglycemic Follow Accu-Cheks. Glipizide-hold -GERD Protonix -Moderate protein calorie malnutrition decreased oral intake. -Essential hypertension, currently blood pressure running low Cozaar-hold. Metoprolol. -COPD in prior smoker Albuterol as needed -Gastrojejunal bypass 2013 Patient does follow with Dr. Agatha Jaeger -Full code. Patient changed the CODE STATUS today. Per her wishes. Discussed labs with the patient and the mother at the bedside. Repeat labs. Past Medical History Past Medical History: Atrial Flutter, Cancer, Diabetes Mellitus, GERD/Reflux, Hyperlipidemia, Hypertension, Osteoarthritis (OA) Additional Past Medical History / Comment(s): migraines, chronic BACK PAIN. DDD, bulging disks, hx Skin CA. GETS NAUSEA WHEN EATING OFTEN, heart murmer, palpitations, hiatal hernia, constipation, History of Any Multi-Drug Resistant Organisms: None Reported Past Surgical History: Bariatric Surgery, Breast Surgery, Section, Cholecystectomy, Hernia Repair, Orthopedic Surgery, Uterine Ablation Additional Past Surgical History / Comment(s): RT Knee arthroscopy. KAILEY MULT TOES Surgery. Sinus Surgery. Gastric Bypass 2013. kailey Breast biopsy. CERVICAL CONE biopsy. PAIN PROC BACK, kailey eyelid procedure, incisional hernia repair, Past Anesthesia/Blood Transfusion Reactions: Previous Problems w/ Anesthesia, Motion Sickness Additional Past Anesthesia/Blood Transfusion Reaction / Comment(s): Woke up once during anesthesia. Mom has difficulty coming out of anesthesia and low b/p. Past Psychological History: Anxiety, Bipolar, Depression, Panic Disorder Smoking Status: Former smoker Past Alcohol Use History: Occasional Past Drug Use History: None Reported
--- NOTE | 2023-11-25 20:33 | P.CONS ---
History of Present Illness - Reason for Consult Consult date: 11/25/23 hx cholangiocarcinoma Requesting physician: Magdiel Smith - Chief Complaint weakness, SOB - History of Present Illness Ms. Goodwin is a 58-year-old woman with PMH significant for atrial flutter, COPD, DMII. Pt presented to [facility] ER September with c/o N and progressive anorexia x 8 days, occasional emesis. Associated chest discomfort in the right side of the chest radiating to the back over the last few days without any dyspnea, hemoptysis, fevers, or chills, 10 to 20 pound weight loss over the previous 1 to 2 months. She had had an EGD with esophageal dilation about 2 weeks prior to presentation. Reported 40 year pack Hx of smoking, quit 09/09/2023, no ETOH abuse. Father had multiple cancers and maternal grandmother had breast cancer diagnosed when she was older. Pt had EGD on 10/11/2023 for her symptoms, reported widely patent gastrojejunal anastomosis without ulcers along with moderate to severe tertiary contractions for presbyesophagus. Last colonoscopy was performed on 07/30/2020 with a total of 3 tubular adenomas in the descending colon and transverse colon along with 2 sessile serrated adenomas in the ileocecal valve and hepatic flexure. CT AP 10/15/2023 noted low-density mass occupying the noah hepatis that was felt to be either biliary or pancreatic in origin along with innumerable large metastatic foci concerning for metastatic disease. CTA of the chest revealed no evidence of pulmonary embolism or evidence of metastatic disease to the lungs. 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 CA 19-9 was greater than 10,000. PD-L1 from the original biopsy was 10%, KRAS mutated, MSI-S, low TMB. Iron deficiency and received 4 treatments of IV iron. Most recently, admitted to [facility] from 10/28/2023 through 10/30/2023 for lower extremity edema treated with IV Lasix and transition to oral Lasix. She was due to start chemo with cisplatin/gemcitabine/durvalumab, but has been delayed due to multiple hospital admissions over the last month. Most recently she was discharged on 11/19/23, diagnosed with PE and DVTs. She is readmitted with SOB and progressing weakness and fatigue. Also reporting persisting abdominal pain. Upon admit labs showed WBC 22.5, hemoglobin 9.1, platelets 450,000. GAYLA also noted, creatinine 1.99, GFR 27, BUN 88. Coags elevated, INR 2.0, PT 19.9, PTT 31. Sodium 131, today sodium 137. Bilirubin elevated at 4.3, AST 353, ALT 96, ALP 1140. Ammonia 57, lactulose ordered. BNP 1770. Troponin also elevated at 1.160. Chest x-ray showing no acute cardiopulmonary processes. Patient has been hypotensive with some improvement with hydration. Midodrine started. She is afebrile. Review of Systems 10 point ROS is negative except as stated in the HPI Past Medical History Past Medical History: Atrial Flutter, Cancer, Diabetes Mellitus, GERD/Reflux, Hyperlipidemia, Hypertension, Osteoarthritis (OA) Additional Past Medical History / Comment(s): migraines, chronic BACK PAIN. DDD, bulging disks, hx Skin CA. GETS NAUSEA WHEN EATING OFTEN, heart murmer, palpitations, hiatal hernia, constipation, History of Any Multi-Drug Resistant Organisms: None Reported Past Surgical History: Bariatric Surgery, Breast Surgery, Section, Cholecystectomy, Hernia Repair, Orthopedic Surgery, Uterine Ablation Additional Past Surgical History / Comment(s): RT Knee arthroscopy. KAILEY MULT TOES Surgery. Sinus Surgery. Gastric Bypass 2013. kailey Breast biopsy. CERVICAL CONE biopsy. PAIN PROC BACK, kailey eyelid procedure, incisional hernia repair, Past Anesthesia/Blood Transfusion Reactions: Previous Problems w/ Anesthesia, Motion Sickness Additional Past Anesthesia/Blood Transfusion Reaction / Comm: Woke up once during anesthesia. Mom has difficulty coming out of anesthesia and low b/p. Past Psychological History: Anxiety, Bipolar, Depression, Panic Disorder Smoking Status: Former smoker Past Alcohol Use History: Occasional Past Drug Use History: None Reported - Past Family History Father History Unknown: Yes Family Medical History: Cancer Additional Family Medical History / Comment(s): skin cancer Mother Family Medical History: Deep Vein Thrombosis (DVT) Medications and Allergies Home Medications Medication Instructions Recorded Confirmed Type Atorvastatin [Lipitor] 10 mg PO DAILY 07/19/17 11/24/23 History traZODone HCL 100 mg PO HS PRN 07/26/20 11/24/23 History Multivitamin [Multivitamins Adult 1 tab PO DAILY 02/27/22 11/24/23 History Gummies] Biotin [Biotin Disolve] 10,000 mcg PO DAILY 09/02/22 11/24/23 History Metoprolol Tartrate 12.5 mg PO DAILY 09/02/22 11/24/23 History Calcium Carbonate/Vitamin D3 2 tab PO DAILY 10/06/23 11/24/23 History [Calcium 500 mg Chewable Tablet] Pantoprazole [Protonix] 40 mg PO DAILY PRN 10/06/23 11/24/23 History Ferrous Sulfate [Iron (65 MG 325 mg PO DAILY 10/08/23 11/24/23 History Elemental)] Albuterol Sulfate [Albuterol 2 puff INHALATION RT-Q6H PRN 10/15/23 11/24/23 History Sulfate Hfa] Losartan [Cozaar] 12.5 mg PO DAILY 10/20/23 11/24/23 History Acetaminophen-Codeine 300-30mg 1 tab PO BID PRN 11/16/23 11/24/23 History [Tylenol w/codeine #3] Dapagliflozin Propanediol [Farxiga] 10 mg PO DAILY 11/16/23 11/24/23 History Furosemide [Lasix] 20 mg PO DAILY 11/16/23 11/24/23 History Potassium Chloride ER [K-Dur 10] 10 meq PO DAILY 11/16/23 11/24/23 History glipiZIDE [Glucotrol] 5 mg PO BID 11/16/23 11/24/23 History ARIPiprazole [Abilify] 5 mg PO DAILY #30 tab 11/19/23 11/24/23 Rx Apixaban [Eliquis Starter Pack See Taper PO BID 11/24/23 11/24/23 History (for VTE)] Fluconazole [Diflucan] 150 mg PO Q2D PRN 11/24/23 11/24/23 History HYDROcodone/APAP 5-325MG [[place] 1 tab PO HS 11/24/23 11/24/23 History 5-325] Nystatin [Nystatin Oral Susp] 500,000 unit PO Q4H 11/24/23 11/24/23 History hydrOXYzine pamoate [Vistaril] 50 mg PO QID PRN 11/24/23 11/24/23 History Allergies Allergy/AdvReac Type Severity Reaction Status Date / Time grass pollen-perennial rye, Allergy ITCHY,WATERY Verified 11/24/23 14:33 standar EYES AND [grass poll-perennial NOSE rye,std] rivaroxaban [From Xarelto] AdvReac See comment Verified 11/24/23 14:33 tape Allergy tears Uncoded 11/24/23 14:33 skin,rash, states "paper tape is ok" Physical Exam Vitals: Vital Signs Temp Pulse Resp BP Pulse Ox 11/25/23 08:09 98.1 F 101 H 18 85/50 98 11/25/23 06:00 102 H 18 93/55 97 11/25/23 05:26 99 18 91/48 98 11/25/23 04:00 101 H 18 90/52 98 11/25/23 02:30 97 18 92/56 97 11/25/23 00:36 102 H 18 94/60 99 11/24/23 22:00 98 18 92/54 98 11/24/23 21:15 100 18 101/62 98 11/24/23 20:26 98 18 95/61 98 11/24/23 20:16 92 16 95/61 100 11/24/23 18:14 97 20 93/62 94 L 11/24/23 15:30 86 20 98/40 97 11/24/23 14:00 87 20 85/58 100 11/24/23 13:00 81/53 99 11/24/23 12:15 97.9 F 88 22 75/48 93 L - Constitutional General appearance: no acute distress - EENT Eyes: EOMI ENT: hearing grossly normal - Respiratory Respiratory: bilateral: CTA - Cardiovascular tachycardic Rhythm: regular - Gastrointestinal General gastrointestinal: distended, soft, no tenderness - Integumentary Integumentary: no cyanotic, no jaundiced - Neurologic lethargic - Musculoskeletal Musculoskeletal: generalized weakness - Psychiatric Psychiatric: A&O x's 3 Results CBC & Chem 7: 11/24/23 13:02 11/25/23 06:07 Labs: Abnormal Lab Results - Last 24 Hours (Table) 11/24/23 11/24/23 11/24/23 Range/Units 13:02 13:02 13:02 WBC 22.5 H (3.8-10.6) k/uL RBC 3.79 L (3.80-5.40) m/uL Hgb 9.1 L (11.4-16.0) gm/dL Hct 29.2 L (34.0-46.0) % MCV 77.1 L (80.0-100.0) fL MCH 23.9 L (25.0-35.0) pg RDW 20.5 H (11.5-15.5) % Neutrophils # 20.0 H (1.3-7.7) k/uL Lymphocytes # 0.9 L (1.0-4.8) k/uL PT 19.9 H (10.0-12.5) sec INR 2.0 H (<1.2) APTT 31.0 H (22.0-30.0) sec Sodium 131 L (137-145) mmol/L Potassium 5.7 H (3.5-5.1) mmol/L Chloride 97 L (98-107) mmol/L BUN 88 H (7-17) mg/dL Creatinine 1.96 H (0.52-1.04) mg/dL Glucose (74-99) mg/dL Calcium (8.4-10.2) mg/dL Magnesium 3.1 H (1.6-2.3) mg/dL Total Bilirubin 4.3 H (0.2-1.3) mg/dL AST 353 H (14-36) U/L ALT 96 H (4-34) U/L Alkaline Phosphatase 1140 H (38-126) U/L Ammonia (<30) umol/L Troponin I (0.000-0.034) ng/mL Total Protein 6.2 L (6.3-8.2) g/dL Albumin 2.7 L (3.5-5.0) g/dL 11/24/23 11/24/23 11/25/23 Range/Units 13:02 13:02 06:07 WBC (3.8-10.6) k/uL RBC (3.80-5.40) m/uL Hgb (11.4-16.0) gm/dL Hct (34.0-46.0) % MCV (80.0-100.0) fL MCH (25.0-35.0) pg RDW (11.5-15.5) % Neutrophils # (1.3-7.7) k/uL Lymphocytes # (1.0-4.8) k/uL PT (10.0-12.5) sec INR (<1.2) APTT (22.0-30.0) sec Sodium (137-145) mmol/L Potassium (3.5-5.1) mmol/L Chloride (98-107) mmol/L BUN 81 H (7-17) mg/dL Creatinine 1.99 H (0.52-1.04) mg/dL Glucose 64 L (74-99) mg/dL Calcium 8.1 L (8.4-10.2) mg/dL Magnesium (1.6-2.3) mg/dL Total Bilirubin 4.1 H (0.2-1.3) mg/dL AST 262 H (14-36) U/L ALT 82 H (4-34) U/L Alkaline Phosphatase 1159 H (38-126) U/L Ammonia 57 H (<30) umol/L Troponin I 1.160 H* (0.000-0.034) ng/mL Total Protein 5.5 L (6.3-8.2) g/dL Albumin 2.3 L (3.5-5.0) g/dL Chest x-ray: report reviewed Assessment and Plan (1) Cholangiocarcinoma Current Visit: Yes Status: Acute Priority: High Code(s): C22.1 - INTRAHEPATIC BILE DUCT CARCINOMA SNOMED Code(s): 203968395 (2) Dehydration Current Visit: Yes Status: Acute Code(s): E86.0 - DEHYDRATION SNOMED Code(s): 87160874 (3) NSTEMI (non-ST elevated myocardial infarction) Current Visit: Yes Status: Acute Priority: High Code(s): I21.4 - NON-ST ELEVATION (NSTEMI) MYOCARDIAL INFARCTION SNOMED Code(s): 98378573 (4) Renal insufficiency Current Visit: Yes Status: Acute Priority: High Code(s): N28.9 - DISORDER OF KIDNEY AND URETER, UNSPECIFIED SNOMED Code(s): 076277562 (5) Abdominal pain Current Visit: Yes Status: Acute Priority: High Code(s): R10.9 - UNSPECIFIED ABDOMINAL PAIN SNOMED Code(s): 84740589 (6) Transaminitis Current Visit: Yes Status: Acute Priority: High Code(s): R74.01 - ELEVATION OF LEVELS OF LIVER TRANSAMINASE LEVELS SNOMED Code(s): 882456196 Plan: Cholangiocarcinoma: -Diagnosis and plan of care as dictated in consult -Plan was to start the first cycle of palliative chemotherapy with cispla tin/Gemzar/Imfinzi, however treatment has had multiple delays due to recent admissions -Due to worsening of liver function and concern for hepatorenal syndrome, we will start inpt chemo with FOLFOX, with plans to continue treatment with cisplatin/Gemzar/Imfinzi in the outpt setting Discussed with pt our concerns for progression of malignancy and worsening liver function, as well as initiating inpt treatment, and possible side effects. She was agreeable to the same -Chemo orders placed -Nephrology consulted to evaluate for hepatorenal syndrome Recent PE/DVT: -Anticoagulation has not been restarted since admit. Due to GAYLA, will start Pradaxa 75mg BID attests: I have seen and examined patient, performed H&P, developed impression and plan of care. Discussed with dictator. Agree with documentation, dictated as a scribe
[2023-11-25] MEDS: DABIGATRAN 75 MG CAP PO SCH (22:58)
[2023-11-26 07:03] LABS: Anisocytosis Moderate; Basophils # (A) 0.1 k/uL (0-0.2); Basophils % (A) 0 %; Eosinophils # (A) 0.5 k/uL (0-0.7); Eosinophils % (A) 2 %; HCT 27.7 % (34.0-46.0); HGB 8.2 gm/dL (11.4-16.0); Hypochromasia Marked; Lymphocytes % (A) 4 %; MCH 23.5 pg (25.0-35.0); MCHC 29.8 g/dL (31.0-37.0); MCV 78.9 fL (80.0-100.0); Microcytosis Slight; Monocytes # (A) 0.9 k/uL (0-1.0); Monocytes % (A) 4 %; Neutrophils # (A) 20.5 k/uL (1.3-7.7); Neutrophils % (A) 89 %; Platelet Count 430 k/uL (150-450); RBC 3.51 m/uL (3.80-5.40); RDW 20.6 % (11.5-15.5); WBC 23.1 k/uL (3.8-10.6)
[2023-11-26 07:40] LABS: ALT 68 U/L (4-34); AST 201 U/L (14-36); African American GFR (CKD) 41 (>60 ml/min/1.73 sqM); Albumin 2.2 g/dL (3.5-5.0); Alkaline Phosphatase 1163 U/L (38-126); Anion Gap 9 mmol/L; Blood Urea Nitrogen 81 mg/dL (7-17); Carbon Dioxide 24 mmol/L (22-30); Chloride 104 mmol/L (98-107); Glucose 104 mg/dL (74-99); Non-African American GFR(CKD) 36 (>60 ml/min/1.73 sqM); Potassium 3.6 mmol/L (3.5-5.1); Sodium 137 mmol/L (137-145); Total Protein 5.3 g/dL (6.3-8.2)
[2023-11-26] MEDS: FLUCONAZOLE 100 MG TAB PO SCH (08:13)
--- NOTE | 2023-11-26 11:42 | P.PN ---
Subjective Progress Note Date: 11/26/23 Principal diagnosis: cholangiocarcinoma No acute events. Reporting she is fatigued, but breathing has improved. Plan to start inpt chemo today. Kidney function and transaminitis improving. Hypotension persisting, with systolic BP in 80s. Continues on fluids and midodrine Objective - Vital Signs Vital signs: Vital Signs Temp 97.9 F 11/26/23 08:00 Pulse 103 H 11/26/23 08:00 Resp 16 11/26/23 08:00 BP 84/52 11/26/23 08:00 Pulse Ox 100 11/26/23 08:00 FiO2 Intake & Output 11/25/23 11/26/23 11/26/23 18:59 06:59 18:59 Intake Total 125 540 Balance 125 540 Weight 81 kg Intake: Intake, IV Titration 125 Amount Sodium Chloride 0.9% 1, 125 000 ml @ 100 mls/hr IV . Q10H MARILOU Rx#:[id number] Oral 540 Other: Voiding Method External Catheter # Voids 1 # Bowel Movements 0 - Constitutional General appearance: Present: no acute distress - EENT Eyes: Present: anicteric sclerae, EOMI ENT: Present: hearing grossly normal - Respiratory Details: breathing is even and unlabored - Cardiovascular Details: well perfused - Gastrointestinal General gastrointestinal: Present: distended. Absent: tenderness - Integumentary Integumentary: Absent: cyanotic, jaundiced - Musculoskeletal Musculoskeletal: Present: generalized weakness - Psychiatric Psychiatric Comment(s): lethargic Psychiatric: Present: A&O x's 3 - Labs CBC & Chem 7: 11/26/23 06:21 11/26/23 06:14 Labs: Abnormal Lab Results - Last 24 Hours (Table) 11/26/23 11/26/23 Range/Units 06:14 06:21 WBC 23.1 H (3.8-10.6) k/uL RBC 3.51 L (3.80-5.40) m/uL Hgb 8.2 L (11.4-16.0) gm/dL Hct 27.7 L (34.0-46.0) % MCV 78.9 L (80.0-100.0) fL MCH 23.5 L (25.0-35.0) pg MCHC 29.8 L (31.0-37.0) g/dL RDW 20.6 H (11.5-15.5) % Neutrophils # 20.5 H (1.3-7.7) k/uL BUN 81 H (7-17) mg/dL Creatinine 1.58 H (0.52-1.04) mg/dL Glucose 104 H (74-99) mg/dL Calcium 8.0 L (8.4-10.2) mg/dL Total Bilirubin 4.0 H (0.2-1.3) mg/dL AST 201 H (14-36) U/L ALT 68 H (4-34) U/L Alkaline Phosphatase 1163 H (38-126) U/L Total Protein 5.3 L (6.3-8.2) g/dL Albumin 2.2 L (3.5-5.0) g/dL Assessment and Plan (1) Cholangiocarcinoma Current Visit: Yes Status: Acute Priority: High Code(s): C22.1 - INTRAHEPATIC BILE DUCT CARCINOMA SNOMED Code(s): 041984304 (2) Dehydration Current Visit: Yes Status: Acute Code(s): E86.0 - DEHYDRATION SNOMED Cod e(s): 85940444 (3) NSTEMI (non-ST elevated myocardial infarction) Current Visit: Yes Status: Acute Priority: High Code(s): I21.4 - NON-ST ELEVATION (NSTEMI) MYOCARDIAL INFARCTION SNOMED Code(s): 83101289 (4) Renal insufficiency Current Visit: Yes Status: Acute Priority: High Code(s): N28.9 - DISORDER OF KIDNEY AND URETER, UNSPECIFIED SNOMED Code(s): 061948929 (5) Abdominal pain Current Visit: Yes Status: Acute Priority: High Code(s): R10.9 - UNSPECIFIED ABDOMINAL PAIN SNOMED Code(s): 92366550 (6) Transaminitis Current Visit: Yes Status: Acute Priority: High Code(s): R74.01 - ELEVATION OF LEVELS OF LIVER TRANSAMINASE LEVELS SNOMED Code(s): 289383898 Plan: Cholangiocarcinoma: -Diagnosis and plan of care as dictated in consult -Plan was to start the first cycle of palliative chemotherapy with cisplatin/Gemzar/Imfinzi, however treatment has had multiple delays due to recent admissions -Due to worsening of liver function and concern for hepatorenal syndrome, we will start inpt chemo with FOLFOX, with plans to continue treatment with cisplat in/Gemzar/Imfinzi in the outpt setting Discussed with pt our concerns for progression of malignancy and worsening liver function, as well as initiating inpt treatment, and possible side effects. She was agreeable to the same -Chemo orders placed. Transfer to -Nephrology consulted to evaluate for hepatorenal syndrome -Kidney function and transamnitis have shown some improvement today Recent PE/DVT: -Anticoagulation has not been restarted since admit. Due to GAYLA, will start Pradaxa 75mg BID. -Will continue to monitor kidney function, if continues to improve, will start Pradaxa 150mg BID attests: I have seen and examined patient, performed H&P, developed impression and plan of care. Discussed with dictator. Agree with documentation, dictated as a scribe
[2023-11-26] MEDS: MIDODRINE 5 MG TAB PO SCH (13:18)
--- NOTE | 2023-11-26 13:50 | P.PN ---
Subjective patient is seen for follow-up for acute kidney injury. Maintained on IV fluids. Renal function has improved. Serum creatinine decreased to 1.5 today. No significant complaints. Objective - Vital Signs Vital signs: Vital Signs Temp 98 F 11/26/23 12:00 Pulse 107 H 11/26/23 12:00 Resp 16 11/26/23 12:00 BP 89/50 11/26/23 12:00 Pulse Ox 97 11/26/23 12:00 FiO2 Intake & Output 11/25/23 11/26/23 11/26/23 18:59 06:59 18:59 Intake Total 125 540 Balance 125 540 Weight 81 kg Intake: Intake, IV Titration 125 Amount Sodium Chloride 0.9% 1, 125 000 ml @ 100 mls/hr IV . Q10H MARILOU Rx#:[id number] Oral 540 Other: Voiding Method External Catheter # Voids 1 # Bowel Movements 0 1 - Exam patient is awake, comfortable, no acute distress. Examination of the heart S1 and S2 Examination of the lungs bilateral breath sounds are heard Abdomen is soft with tenderness noted in the right upper quadrant. Examination of lower extremity shows trace edema bilaterally [employer] exam grossly intact - Labs CBC & Chem 7: 11/26/23 06:21 11/26/23 06:14 Labs: Abnormal Lab Results - Last 24 Hours (Table) 11/26/23 11/26/23 Range/Units 06:14 06:21 WBC 23.1 H (3.8-10.6) k/uL RBC 3.51 L (3.80-5.40) m/uL Hgb 8.2 L (11.4-16.0) gm/dL Hct 27.7 L (34.0-46.0) % MCV 78.9 L (80.0-100.0) fL MCH 23.5 L (25.0-35.0) pg MCHC 29.8 L (31.0-37.0) g/dL RDW 20.6 H (11.5-15.5) % Neutrophils # 20.5 H (1.3-7.7) k/uL BUN 81 H (7-17) mg/dL Creatinine 1.58 H (0.52-1.04) mg/dL Glucose 104 H (74-99) mg/dL Calcium 8.0 L (8.4-10.2) mg/dL Total Bilirubin 4.0 H (0.2-1.3) mg/dL AST 201 H (14-36) U/L ALT 68 H (4-34) U/L Alkaline Phosphatase 1163 H (38-126) U/L Total Protein 5.3 L (6.3-8.2) g/dL Albumin 2.2 L (3.5-5.0) g/dL Assessment and Plan Assessment: 1. Acute kidney injury, ATN secondary to hypotension. Check UA. Angiotensin receptor blockers and diuretics currently on hold. Currently maintained on IV fluids. 2. Metastatic cholangiocarcinoma, recently diagnosed almost started on chemotherapy 3. History of CHF with preserved ejection fraction. current chest x-ray shows no pulmonary vascular congestion. 4. Mental status changes possibly related to hepatic encephalopathy. 5. Hyperkalemia associated with acute kidney injury any in the setting of use of MAGGI inhibitor's and potassium supplementation 6. History of bipolar disorder Plan: continue with gentle IV hydration Accurate I's and O's Continue to hold Cozaar. Repeat labs in a.m.
--- NOTE | 2023-11-26 15:46 | P.PN ---
Progress Note - Text Progress Note Date: 11/26/23 Chief Complaint: Tired short of breath This is a 58-year-old patient, follows Dr. Rincon. Chronic stable medical conditions include GERD, diabetes, hypertension, hyperlipidemia, osteoarthritis, hiatal hernia. Gastrojejunal gastric bypass in 2013. CHF with preserved EF October 11, 2023:, by Dr. Hooks: EGD with rigid dilator 57 Syri[place] to address lower esophageal sphincter and esophageal dysmotility.. 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 Port was placed recently. - oncologist Dr. Calin Atkins. Patient was discharged from the hospital last week following admission for congestive heart failure exacerbation with preserved ejection fraction. Also has some ascites but not felt to be enough for paracentesis. Patient is due to start chemotherapy shortly. Patient recently was admitted with CHF with preserved EF exacerbation. Subsequently was in the hospital from November 15 through November 18 with PE. Discharged on Eliquis. Just prior to leaving patient had decided to become DNR. Patient now presents feeling increasing short of breath. Tired. Decreased appetite. Not ambulating much. Decreased oral intake. In the ER troponin was 1.1. Patient denies any chest pain. Dr. Smith had spoken to the network consultant Dr. Regis Morrison. Not for any further intervention. Patient denies any cough. Just tired. November 24: Patient was seen this afternoon. Mother at the bedside. Patient more awake today. Tired. Decreased appetite. Discussed. Patient today wants to go back to being a full code. Oncology ordered patient to receive fluorouracil. And leucovorin. Patient initial symptoms felt to be combination of r acute kidney injury and hepatic encephalopathy. Patient remains on lactulose November 25: Sitting up in bed. Mother at the bedside. Following medication changes being done. Dilaudid is being discontinued. Will give Tylenol 3 as needed during daytime. [place] to continue at night. Lipitor Abilify continues to remain off. Patient is on Pradaxa instead of Eliquis. On Diflucan for oral candidiasis. On chemo agents per oncology. Slight improvement in hepatic numbers Active Medications Acetaminophen/Codeine Phosphate (Acetaminophen-Codeine 300-30mg Tab) 1 each PO BID PRN PRN Reason: Pain Hydrocodone Bitart/Acetaminophen (Hydrocodone/Apap 5-325mg 1 Each Tab) 1 each PO HS MARILOU Last Admin: 11/25/23 21:52 Dose: 1 each Albuterol Sulfate (Albuterol Nebulized 2.5 Mg/3 Ml) 2.5 mg INHALATION RT-Q6H PRN PRN Reason: Shortness Of Breath Dabigatran (Dabigatran 75 Mg Cap) 75 mg PO BID [facility]; Protocol Last Admin: 11/26/23 08:13 Dose: 75 mg Dexamethasone Sodium Phosphate (Dexamethasone Sod Phosphate 10 Mg/Ml 1 Ml Vial) 10 mg IV ONCE ONE Stop: 11/26/23 16:01 Famotidine (Famotidine 20 Mg/2 Ml Vial) 20 mg IV ONCE ONE Stop: 11/26/23 16:01 Fluconazole (Fluconazole 100 Mg Tab) 50 mg PO DAILY [facility]; Protocol Last Admin: 11/26/23 08:13 Dose: 50 mg Sodium Chloride (Saline 0.9%) 1,000 mls @ 50 mls/hr IV .Q20H [facility] Last Admin: 11/26/23 08:05 Dose: Not Given Oxaliplatin 100 mg/Oxaliplatin 50 mg/ Dextrose/Water 530 mls @ 265 mls/hr IV ONCE ONE Stop: 11/26/23 17:59 Leucovorin Calcium 700 mg/Leucovorin Calcium 200 mg/Leucovorin Calcium 50 mg/Dextrose/Water 560 mls @ 280 mls/hr IV ONCE ONE Stop: 11/26/23 17:59 Fluorouracil 3,700 mg/ Sodium (Chloride) 250 mls @ 5.435 mls/hr IV ONCE ONE Stop: 11/28/23 15:59 Ondansetron HCl 16 mg/ Sodium (Chloride) 58 mls @ 232 mls/hr IVPB ONCE ONE Stop: 11/26/23 16:14 Lactulose (Lactulose 20 Gm/30 Ml Cup) 20 gm PO BID [facility] Last Admin: 11/26/23 08:13 Dose: 20 gm Midodrine (Midodrine 5 Mg Tab) 10 mg PO AC-TID [facility] Last Admin: 11/26/23 13:18 Dose: 10 mg Multivitamins (Multivitamins, Thera 1 Each Tab) 1 each PO DAILY [facility] Last Admin: 11/26/23 08:13 Dose: 1 each Naloxone HCl (Naloxone 0.4 Mg/Ml 1 Ml Vial) 0.2 mg IV Q2M PRN PRN Reason: Opioid Reversal Ondansetron HCl (Ondansetron 4 Mg/2 Ml Vial) 4 mg IVP Q8HR PRN PRN Reason: Nausea And Vomiting Pantoprazole Sodium (Pantoprazole 40 Mg Tablet) 40 mg PO DAILY PRN PRN Reason: Acid Reflux Social history: started smoking at the age of [age] 1 pack a day. In the past. Alcohol occasionally. Had also done marijuana for pain. Mother is living with her Physical examination: VITAL SIGNS: 98, 107, 16, 89 x 50, 97% on 3 L GENERAL: Sitting up in bed, a bit more awake. Tired EYES: Pupils equal. Conjunctiva daniel l. HEENT: External appearance of nose and ears normal, oral cavity grossly normal. NECK: JVD not raised; masses not palpable. HEART: First and second heart sounds are normal; no edema. LUNGS: Respiratory rate normal; clear to auscultation. ABDOMEN: Soft with distention-, mild tender-on the right side r, liver spleen not palpable, no masses palpable. PSYCH: Answering questions appropriately MUSCULOSKELETAL:No Clubbing/cyanosis;muscles-grossly intact. Some back pain INVESTIGATIONS, reviewed in the clinical context: November 25: White count 23.1 hemoglobin 8.2 platelets 430 potassium 3.6 BUN 81 creatinine 1.58 AST 201 ALT 68 alkaline phosphatase 1163 November 24: Sodium 137 potassium 4 BUN 81 creatinine 1.99 AST 262 ALT 82 alkaline phosphatase 1159 November 24, 2023: White count 22.5 hemoglobin 9.1 platelets 450 sodium 131 potassium 5.7 BUN 88 creatinine 1.96 AST 353 ALT 96 alkaline phosphatase 1140 ammonia 57 Troponin I 1.160 proBNP 1770 EKG tracing personally reviewed by me-normal sinus rhythm. Poor R wave progression. ST-T wave changes. Chest x-ray film personally reviewed by me-possible cardiomegaly Prior lab: November 16: Hemoglobin 8.1 white count 18.9 platelets [address] chest angio for PE:. Cardiomegaly. Hepatic metastasis. Adenopathy. Previous Brain MRI October 17: Unremarkable Liver biopsy-poorly differentiated adenocarcinoma CT abdomen pelvis with contrast October 14: Numerous large liver metastatic foci. Status postcholecystectomy. Low-density mass occupies noah hepatis. Suggestive of biliary or pancreatic primary. Assessment and plan: -Acute metabolic encephalopathy/possible hepatic encephalopathy, delirium. From acute kidney injury, and liver dysfunction: Better Hold Abilify.. -Acute non-ST elevation DC, type II from hemodynamic mismatch. Patient not a candidate for IV heparin because of already on blood thinners.. No chest pain. Cardiology was consulted from ER. Not for any further intervention, per Dr. Smith who spoke to Dr. Regis Morrison.. - hepatic encephalopathy: Better Lactulose 20 g twice daily -Acute kidney injury possibly combination of prerenal and ATN. Stop Lasix. Stop Cozaar. Gentle IV hydration -Hyperkalemia secondary to acute kidney injury. Cozaar. Potassium supplement.: Better Hold Cozaar, potassium Renal diet. IV sodium bicarbonate. Kayexalate. -Acute pulm embolism underlying metastatic cancer, diagnosed November 16, 2023 Eliquis-now on Pradaxa -Cholangio-carcinoma poorly differentiated adenocarcinoma. right chest port. MRI brain negative Given fluorouracil, leucovorin -Started on chemotherapy, November [address] Atkins Palliative chemotherapy -Microcytic anemia to include iron deficiency from underlying malignancy and nutritional component from decreased oral intake. Received IV iron previously -Bipolar disorder Abilify-hold. Trazodone. Lamictal -Diabetes mellitus type 2 on oral hypoglycemic Follow Accu-Cheks. Glipizide-hold -GERD Protonix -Moderate protein calorie malnutrition decreased oral intake. Ensure -Hypotension Grady wrap. Midodrine. -COPD in prior smoker Albuterol as needed -Gastrojejunal bypass 2013 Patient does follow with Dr. Agatha Jaeger -Full code. Discussed with patient and mother. Prognosis guarded. Past Medical History Past Medical History: Atrial Flutter, Cancer, Diabetes Mellitus, GERD/Reflux, Hyperlipidemia, Hypertension, Osteoarthritis (OA) Additional Past Medical History / Comment(s): migraines, chronic BACK PAIN. DDD, bulging disks, hx Skin CA. GETS NAUSEA WHEN EATING OFTEN, heart murmer, palpitations, hiatal hernia, constipation, History of Any Multi-Drug Resistant Organisms: None Reported Past Surgical History: Bariatric Surgery, Breast Surgery, Section, Cholecystectomy, Hernia Repair, Orthopedic Surgery, Uterine Ablation Additional Past Surgical History / Comment(s): RT Knee arthroscopy. KAILEY MULT TOES Surgery. Sinus Surgery. Gastric Bypass 2013. kailey Breast biopsy. CERVICAL CONE biopsy. PAIN PROC BACK, kailey eyelid procedure, incisional hernia repair, Past Anesthesia/Blood Transfusion Reactions: Previous Problems w/ Anesthesia, Motion Sickness Additional Past Anesthesia/Blood Transfusion Reaction / Comment(s): Woke up once during anesthesia. Mom has difficulty coming out of anesthesia and low b/p. Past Psychological History: Anxiety, Bipolar, Depression, Panic Disorder Smoking Status: Former smoker Past Alcohol Use History: Occasional Past Drug Use History: None Reported
[2023-11-26 16:06] LABS: Glucose,Whole Blood 161 mg/dL (70-110)
[2023-11-26] MEDS: INSULIN ASPART (NovoLOG) 100 UNIT/ML VIAL SQ SCH (16:07)
[2023-11-26] MEDS: ONDANSETRON 4 MG/2 ML VIAL IVP PRN (16:12)
[2023-11-26 20:05] LABS: Glucose,Whole Blood 144 mg/dL (70-110)
[2023-11-26] MEDS: DEXAMETHASONE SOD PHOSPHATE 10 MG/ML 1 ML VIAL IV ONE (22:53)
[2023-11-26] MEDS: FAMOTIDINE 20 MG/2 ML VIAL IV ONE (22:53)
[2023-11-26] MEDS: ONDANSETRON 16 MG in SODIUM CHLORIDE 0.9% 50 ML IVPB ONE (23:30)
[2023-11-26] MEDS: OXALIPLATIN 100 MG, OXALIPLATIN 50 MG in DEXTROSE 5% IN WATER 500 ML IV ONE (23:53)
[2023-11-27] MEDS: ALBUTEROL NEBULIZED 2.5 MG/3 ML INHALATION PRN (02:42)
[2023-11-27 04:26] LABS: Anisocytosis Moderate; Basophils # (A) 0.1 k/uL (0-0.2); Basophils % (A) 0 %; Eosinophils # (A) 0.2 k/uL (0-0.7); Eosinophils % (A) 1 %; HCT 28.4 % (34.0-46.0); HGB 8.6 gm/dL (11.4-16.0); Hypochromasia Marked; Lymphocytes # (A) 0.6 k/uL (1.0-4.8); Lymphocytes % (A) 2 %; MCH 23.9 pg (25.0-35.0); MCHC 30.2 g/dL (31.0-37.0); MCV 79.3 fL (80.0-100.0); Mean Platelet Volume 8.9; Microcytosis Slight; Monocytes # (A) 0.4 k/uL (0-1.0); Monocytes % (A) 2 %; Neutrophils # (A) 24.1 k/uL (1.3-7.7); Neutrophils % (A) 95 %; Platelet Count 407 k/uL (150-450); RBC 3.58 m/uL (3.80-5.40); RDW 20.9 % (11.5-15.5); WBC 25.5 k/uL (3.8-10.6)
[2023-11-27 04:40] LABS: ALT 72 U/L (4-34); AST 230 U/L (14-36); African American GFR (CKD) 40 (>60 ml/min/1.73 sqM); Albumin 2.3 g/dL (3.5-5.0); Anion Gap 12 mmol/L; Blood Urea Nitrogen 88 mg/dL (7-17); Calcium 8.3 mg/dL (8.4-10.2); Carbon Dioxide 19 mmol/L (22-30); Chloride 101 mmol/L (98-107); Glucose 220 mg/dL (74-99); Non-African American GFR(CKD) 35 (>60 ml/min/1.73 sqM); Sodium 132 mmol/L (137-145); Total Bilirubin 4.4 mg/dL (0.2-1.3); Total Protein 5.5 g/dL (6.3-8.2)
[2023-11-27 04:47] LABS: Alkaline Phosphatase 1125 U/L (38-126)
[2023-11-27] MEDS: Acetaminophen-Codeine 300-30mg TAB PO PRN ×2 (05:59→15:30)
[2023-11-27 08:17] LABS: Glucose,Whole Blood 230 mg/dL (70-110)
[2023-11-27] MEDS: SODIUM FERRIC GLUCONAT-SUCROSE 125 MG in SODIUM CHLORIDE 0.9% 100 ML IVPB SCH (09:46)
--- NOTE | 2023-11-27 11:29 | P.PN ---
Subjective Progress Note Date: 11/27/23 Principal diagnosis: Metastatic cholangiocarcinoma -Afebrile, no acute events overnight -Transferred to [facility] overnight and initiated cycle 1, day 1 of FOLFOX -More alert today with improved blood pressure. Notes occasional nausea, but denies any vomiting. No abdominal pain noted today Objective - Vital Signs Vital signs: Vital Signs Temp 97.9 F 11/27/23 08:00 Pulse 99 11/27/23 08:00 Resp 20 11/27/23 08:00 BP 90/61 11/27/23 08:00 Pulse Ox 98 11/27/23 08:00 FiO2 Intake & Output 11/26/23 11/27/23 11/27/23 18:59 06:59 18:59 Intake Total 240 1883 Output Total 3 Balance 237 1883 Weight 81 kg 82.9 kg Intake: Intake, IV Titration 1483 Amount Leucovorin 700 mg 500 Leucovorin 200 mg Leucovorin 50 mg In Dextrose 5% in Water 500 ml @ 280 mls/hr IV ONCE ONE Rx#:[id number] Ondansetron 16 mg In 50 Sodium Chloride 0.9% 50 ml @ 232 mls/hr IVPB ONCE ONE Rx#:[id number] Oxaliplatin 100 mg 500 Oxaliplatin 50 mg In Dextrose 5% in Water 500 ml @ 265 mls/hr IV ONCE ONE Rx#:[id number] Sodium Chloride 0.9% 1, 400 000 ml @ 50 mls/hr IV . Q20H MARILOU Rx#:[id number] fluorouraciL 3,700 mg In 33 Sodium Chloride 0.9% 176 ml @ 5.435 mls/hr IV ONCE ONE Rx#:[id number] Oral 240 400 Output: Stool 3 Other: Voiding Method External Catheter # Voids 3 1 # Bowel Movements 1 1 - Constitutional Constitutional Comment(s): Fatigued appearing General appearance: Present: cooperative, no acute distress - EENT Eyes: Present: anicteric sclerae, EOMI - Respiratory Respiratory: bilateral: CTA - Cardiovascular Rhythm: regular - Peripheral edema leg Peripheral Edema: bilateral: 2+ - Gastrointestinal General gastrointestinal: Present: distended, normal bowel sounds, soft. Absent: tenderness - Integumentary Integumentary: Present: pale - Neurologic Neurologic: Present: CNII-XII intact. Absent: focal deficits - Musculoskeletal Musculoskeletal: Present: generalized weakness - Labs CBC & Chem 7: 11/27/23 03:42 11/27/23 03:37 Labs: Abnormal Lab Results - Last 24 Hours (Table) 11/26/23 11/26/23 11/27/23 Range/Units 16:04 20:04 03:37 WBC (3.8-10.6) k/uL RBC (3.80-5.40) m/uL Hgb (11.4-16.0) gm/dL Hct (34.0-46.0) % MCV (80.0-100.0) fL MCH (25.0-35.0) pg MCHC (31.0-37.0) g/dL RDW (11.5-15.5) % Neutrophils # (1.3-7.7) k/uL Lymphocytes # (1.0-4.8) k/uL Sodium 132 L (137-145) mmol/L Carbon Dioxide 19 L (22-30) mmol/L BUN 88 H (7-17) mg/dL Creatinine 1.62 H (0.52-1.04) mg/dL Glucose 220 H (74-99) mg/dL POC Glucose (mg/dL) 161 H 144 H (70-110) mg/dL Calcium 8.3 L (8.4-10.2) mg/dL Total Bilirubin 4.4 H (0.2-1.3) mg/dL AST 230 H (14-36) U/L ALT 72 H (4-34) U/L Alkaline Phosphatase 1125 H (38-126) U/L Ammonia (<30) umol/L Total Protein 5.5 L (6.3-8.2) g/dL Albumin 2.3 L (3.5-5.0) g/dL 11/27/23 11/27/23 11/27/23 Range/Units 03:42 03:42 08:16 WBC 25.5 H (3.8-10.6) k/uL RBC 3.58 L (3.80-5.40) m/uL Hgb 8.6 L (11.4-16.0) gm/dL Hct 28.4 L (34.0-46.0) % MCV 79.3 L (80.0-100.0) fL MCH 23.9 L (25.0-35.0) pg MCHC 30.2 L (31.0-37.0) g/dL RDW 20.9 H (11.5-15.5) % Neutrophils # 24.1 H (1.3-7.7) k/uL Lymphocytes # 0.6 L (1.0-4.8) k/uL Sodium (137-145) mmol/L Carbon Dioxide (22-30) mmol/L BUN (7-17) mg/dL Creatinine (0.52-1.04) mg/dL Glucose (74-99) mg/dL POC Glucose (mg/dL) 230 H (70-110) mg/dL Calcium (8.4-10.2) mg/dL Total Bilirubin (0.2-1.3) mg/dL AST (14-36) U/L ALT (4-34) U/L Alkaline Phosphatase (38-126) U/L Ammonia 78 H (<30) umol/L Total Protein (6.3-8.2) g/dL Albumin (3.5-5.0) g/dL Assessment and Plan (1) Cholangiocarcinoma metastatic to liver Current Visit: Yes Status: Acute Code(s): C22.1 - INTRAHEPATIC BILE DUCT CARCINOMA; C78.7 - SECONDARY MALIG NEOPLASM OF LIVER AND INTRAHEPATIC BILE DUCT SNOMED Code(s): 1707611476 (2) Pulmonary embolism Current Visit: No Status: Acute Priority: High Code(s): I26.99 - OTHER PULMONARY EMBOLISM WITHOUT ACUTE COR PULMONALE SNOMED Code(s): 28476344 (3) Iron deficiency anemia Current Visit: Yes Status: Acute Code(s): D50.9 - IRON DEFICIENCY ANEMIA, UNSPECIFIED SNOMED Code(s): 14241783 (4) GAYLA (acute kidney injury) Current Visit: Yes Status: Acute Code(s): N17.9 - ACUTE KIDNEY FAILURE, UNSPECIFIED SNOMED Code(s): 81939342 Plan: Metastatic cholangiocarcinoma -Diagnosis and plan of care as dictated in consult -Plan was to start the first cycle of palliative chemotherapy with cisplatin/G emzar/Imfinzi on 11/26/2023, however treatment has had multiple delays due to 3 admissions in the past month -She has had progressive weakness and worsening liver function concerning for disease progression of cholangiocarcinoma -She was started on cycle 1, day 1 of FOLFOX on the evening of 11/26/2023 -Clinically, she appears more alert and notes mild nausea -Zofran 4 mg IV every 8 hours is available for nausea Iron deficiency anemia -Was diagnosed in September 2023 when she was diagnosed with cholangiocarcinoma -Received 4 rounds of IV iron inpatient at that time -She continues to have persistent microcytic hypochromic anemia secondary to iron deficiency from malignancy -Repeat iron studies ordered from today's labs -IV iron started and patient GAYLA -Improved from admission with creatinine 1.62 from 1.98 on admission -Diuretics and antihypertensives have been held along with midodrine 3 times d aily started -I was concerned about hepatorenal syndrome given her worsening liver function secondary to progressive cholangiocarcinoma -Continue to follow nephrology recommendations, appreciate their assistance Recent PE/DVT -Anticoagulation has not been restarted since admit. Due to GAYLA, will start Pradaxa 75mg BID. -Will continue to monitor kidney function, if continues to improve, will start Pradaxa 150mg BID Israel Marino MD
[2023-11-27 12:11] LABS: Glucose,Whole Blood 176 mg/dL (70-110)
--- NOTE | 2023-11-27 13:25 | P.PN ---
Subjective patient is seen for follow-up for acute kidney injury. Maintained on IV fluids. Renal function has improved. Serum creatinine at 1.6 today. No significant complaints. Maintained on chemotherapy. Objective - Vital Signs Vital signs: Vital Signs Temp 97.4 F L 11/27/23 12:50 Pulse 100 11/27/23 12:50 Resp 16 11/27/23 12:50 BP 103/68 11/27/23 12:50 Pulse Ox 99 11/27/23 12:50 FiO2 Intake & Output 11/26/23 11/27/23 11/27/23 18:59 06:59 18:59 Intake Total 240 1883 Output Total 3 1 Balance 237 1883 -1 Weight 81 kg 82.9 kg Intake: Intake, IV Titration 1483 Amount Leucovorin 700 mg 500 Leucovorin 200 mg Leucovorin 50 mg In Dextrose 5% in Water 500 ml @ 280 mls/hr IV ONCE ONE Rx#:[id number] Ondansetron 16 mg In 50 Sodium Chloride 0.9% 50 ml @ 232 mls/hr IVPB ONCE ONE Rx#:[id number] Oxaliplatin 100 mg 500 Oxaliplatin 50 mg In Dextrose 5% in Water 500 ml @ 265 mls/hr IV ONCE ONE Rx#:[id number] Sodium Chloride 0.9% 1, 400 000 ml @ 50 mls/hr IV . Q20H MARILOU Rx#:[id number] fluorouraciL 3,700 mg In 33 Sodium Chloride 0.9% 176 ml @ 5.435 mls/hr IV ONCE ONE Rx#:[id number] Oral 240 400 Output: Stool 3 1 Other: Voiding Method External Catheter External Catheter # Voids 3 1 # Bowel Movements 1 1 - Exam patient is awake, comfortable, no acute distress. Examination of the heart S1 and S2 Examination of the lungs bilateral breath sounds are heard Abdomen is soft with tenderness noted in the right upper quadrant. Examination of lower extremity shows trace edema bilaterally [employer] exam grossly intact - Labs CBC & Chem 7: 11/27/23 03:42 11/27/23 03:37 Labs: Abnormal Lab Results - Last 24 Hours (Table) 11/26/23 11/26/23 11/27/23 Range/Units 16:04 20:04 03:37 WBC (3.8-10.6) k/uL RBC (3.80-5.40) m/uL Hgb (11.4-16.0) gm/dL Hct (34.0-46.0) % MCV (80.0-100.0) fL MCH (25.0-35.0) pg MCHC (31.0-37.0) g/dL RDW (11.5-15.5) % Neutrophils # (1.3-7.7) k/uL Lymphocytes # (1.0-4.8) k/uL Sodium 132 L (137-145) mmol/L Carbon Dioxide 19 L (22-30) mmol/L BUN 88 H (7-17) mg/dL Creatinine 1.62 H (0.52-1.04) mg/dL Glucose 220 H (74-99) mg/dL POC Glucose (mg/dL) 161 H 144 H (70-110) mg/dL Calcium 8.3 L (8.4-10.2) mg/dL Total Bilirubin 4.4 H (0.2-1.3) mg/dL AST 230 H (14-36) U/L ALT 72 H (4-34) U/L Alkaline Phosphatase 1125 H (38-126) U/L Ammonia (<30) umol/L Total Protein 5.5 L (6.3-8.2) g/dL Albumin 2.3 L (3.5-5.0) g/dL 11/27/23 11/27/23 11/27/23 Range/Units 03:42 03:42 08:16 WBC 25.5 H (3.8-10.6) k/uL RBC 3.58 L (3.80-5.40) m/uL Hgb 8.6 L (11.4-16.0) gm/dL Hct 28.4 L (34.0-46.0) % MCV 79.3 L (80.0-100.0) fL MCH 23.9 L (25.0-35.0) pg MCHC 30.2 L (31.0-37.0) g/dL RDW 20.9 H (11.5-15.5) % Neutrophils # 24.1 H (1.3-7.7) k/uL Lymphocytes # 0.6 L (1.0-4.8) k/uL Sodium (137-145) mmol/L Carbon Dioxide (22-30) mmol/L BUN (7-17) mg/dL Creatinine (0.52-1.04) mg/dL Glucose (74-99) mg/dL POC Glucose (mg/dL) 230 H (70-110) mg/dL Calcium (8.4-10.2) mg/dL Total Bilirubin (0.2-1.3) mg/dL AST (14-36) U/L ALT (4-34) U/L Alkaline Phosphatase (38-126) U/L Ammonia 78 H (<30) umol/L Total Protein (6.3-8.2) g/dL Albumin (3.5-5.0) g/dL 11/27/23 Range/Units 12:10 WBC (3.8-10.6) k/uL RBC (3.80-5.40) m/uL Hgb (11.4-16.0) gm/dL Hct (34.0-46.0) % MCV (80.0-100.0) fL MCH (25.0-35.0) pg MCHC (31.0-37.0) g/dL RDW (11.5-15.5) % Neutrophils # (1.3-7.7) k/uL Lymphocytes # (1.0-4.8) k/uL Sodium (137-145) mmol/L Carbon Dioxide (22-30) mmol/L BUN (7-17) mg/dL Creatinine (0.52-1.04) mg/dL Glucose (74-99) mg/dL POC Glucose (mg/dL) 176 H (70-110) mg/dL Calcium (8.4-10.2) mg/dL Total Bilirubin (0.2-1.3) mg/dL AST (14-36) U/L ALT (4-34) U/L Alkaline Phosphatase (38-126) U/L Ammonia (<30) umol/L Total Protein (6.3-8.2) g/dL Albumin (3.5-5.0) g/dL Assessment and Plan Assessment: 1. Acute kidney injury, ATN secondary to hypotension. Check UA. Angiotensin receptor blockers and diuretics currently on hold. Currently maintained on IV fluids. 2. Metastatic cholangiocarcinoma, recently diagnosed almost started on chemotherapy 3. History of CHF with preserved ejection fraction. current chest x-ray shows no pulmonary vascular congestion. 4. Mental status changes possibly related to hepatic encephalopathy. 5. Hyperkalemia associated with acute kidney injury any in the setting of use of MAGGI inhibitor's and potassium supplementation, improved 6. History of bipolar disorder Plan: continue with gentle IV hydration Accurate I's and O's Continue to hold Cozaar. Repeat labs in a.m. Add oral sodium bicarb Check UA
[2023-11-27 13:26] LABS: % Iron Saturation 21.92 (12.00-45.00)
--- NOTE | 2023-11-27 13:44 | P.PN ---
Subjective Progress Note Date: 11/27/23 This is a 58-year-old patient, follows Dr. Rincon. Chronic stable medical conditions include GERD, diabetes, hypertension, hyperlipidemia, osteoarthritis, hiatal hernia. Gastrojejunal gastric bypass in 2013. CHF with preserved EF October 11, 2023:, by Dr. Hooks: EGD with rigid dilator 57 [place] to address lower esophageal sphincter and esophageal dysmotility.. 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 Port was placed recently. - oncologist Dr. Calin Atkins. Patient was discharged from the hospital last week following admission for congestive heart failure exacerbation with preserved ejection fraction. Also has some ascites but not felt to be enough for paracentesis. Patient is due to start chemotherapy shortly. Patient recently was admitted with CHF with preserved EF exacerbation. Subsequently was in the hospital from November 15 through November 18 with PE. Discharged on Eliquis. Just prior to leaving patient had decided to become DNR. Patient now presents feeling increasing short of breath. Tired. Decreased appetite. Not ambulating much. Decreased oral intake. In the ER troponin was 1.1. Patient denies any chest pain. Dr. Smith had spoken to the newspaper managing editor Dr. Regis Morrison. Not for any further intervention. Patient denies any cough. Just tired. November 24: Patient was seen this afternoon. Mother at the bedside. Patient more awake today. Tired. Decreased appetite. Discussed. Patient today wants to go back to being a full code. Oncology ordered patient to receive fluorouracil. And leucovorin. Patient initial symptoms felt to be combination of r acute kidney injury and hepatic encephalopathy. Patient remains on lactu lose November 25: Sitting up in bed. Mother at the bedside. Following medication changes being done. Dilaudid is being discontinued. Will give Tylenol 3 as needed during daytime. [place] to continue at night. Lipitor Abilify continues to remain off. Patient is on Pradaxa instead of Eliquis. On Diflucan for oral candidiasis. On chemo agents per oncology. Slight improvement in hepatic numbers 11/26. Patient seen and examined. Vital signs this morning the patient had 74, heart rate of 100, blood pressure 103/68. Blood work done this morning showed WBC 25.5, hemoglobin 8.6, platelet count 407, sodium 132, potassium 4, BUN 18, creatinine 1.62. Complaining of weakness. Complaining of shortness of breath on exertion REVIEW OF SYSTEMS: CONSTITUTIONAL: No fever, no malaise,. CARDIOVASCULAR: No chest pain, no palpitations, no syncope. PULMONARY: As mentioned above GASTROINTESTINAL: No diarrhea, no nausea, no vomiting, no abdominal pain. NEUROLOGICAL: No headaches, no weakness, PHYSICAL EXAMINATION: GENERAL: The patient is alert and oriented x3, chronically ill looking HEENT: Pupils are round and equally reacting to light. EOMI. No scleral icterus. No conjunctival pallor. Normocephalic, atraumatic. No pharyngeal erythema. No thyromegaly. CARDIOVASCULAR: S1 and S2 present. No murmurs, rubs, or gallops. PULMONARY: Chest is clear to auscultation, no wheezing or crackles. ABDOMEN: Soft, nontender, nondistended, normoactive bowel sounds. No palpable organomegaly. MUSCULOSKELETAL: No joint swelling or deformity. EXTREMITIES: No cyanosis, clubbing, or pedal edema. NEUROLOGICAL: Gross neurological examination did not reveal any focal deficits. SKIN: No rashes. Assessment and plan -Acute metabolic encephalopathy/possible hepatic encephalopathy, delirium. From acute kidney injury, and liver dysfunction: Resolved -Acute non-ST elevation [place], type II from hemodynamic mismatch. Continue medical management - hepatic encephalopathy: Improved Lactulose 20 g twice daily -Acute kidney injury possibly combination of prerenal and ATN. -Hyperkalemia secondary to acute kidney injury. 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 MRI brain negative Given fluorouracil, leucovorin -Started on chemotherapy, November [address] Regis le Palliative chemotherapy -Microcytic anemia to include iron deficiency from underlying malignancy and nutritional component from decreased oral intake. Monitor CBC -Bipolar disorder Abilify-hold. Trazodone. Lamictal -Diabetes mellitus type 2 on oral hypoglycemic Monitor blood sugar levels, continue sliding scale insulin -GERD Protonix -Moderate protein calorie malnutrition decreased oral intake. Ensure -Hypotension Grady wrap. Midodrine. -COPD in prior smoker Albuterol as needed -Gastrojejunal bypass 2013 Patient does follow with Dr. Agatha Jaeger Labs and medication were reviewed.. Continue same treatment. Continue with symptomatic treatment. Resume home medication. Monitor labs and vitals. DVT and GI prophylaxis. Further recommendations as per clinical course of the patient Dictation was produced using [employer] dictation software. please excuse any grammatical, word or spelling errors. Objective - Vital Signs Vital signs: Vital Signs Temp 97.4 F L 11/27/23 12:50 Pulse 100 11/27/23 12:50 Resp 16 11/27/23 12:50 BP 103/68 11/27/23 12:50 Pulse Ox 99 11/27/23 12:50 FiO2 Intake & Output 11/26/23 11/27/23 11/27/23 18:59 06:59 18:59 Intake Total 240 1883 Output Total 3 1 Balance 237 1883 -1 Weight 81 kg 82.9 kg Intake: Intake, IV Titration 1483 Amount Leucovorin 700 mg 500 Leucovorin 200 mg Leucovorin 50 mg In Dextrose 5% in Water 500 ml @ 280 mls/hr IV ONCE ONE Rx#:[id number] Ondansetron 16 mg In 50 Sodium Chloride 0.9% 50 ml @ 232 mls/hr IVPB ONCE ONE Rx#:[id number] Oxaliplatin 100 mg 500 Oxaliplatin 50 mg In Dextrose 5% in Water 500 ml @ 265 mls/hr IV ONCE ONE Rx#:[id number] Sodium Chloride 0.9% 1, 400 000 ml @ 50 mls/hr IV . Q20H MARILOU Rx#:[id number] fluorouraciL 3,700 mg In 33 Sodium Chloride 0.9% 176 ml @ 5.435 mls/hr IV ONCE ONE Rx#:[id number] Oral 240 400 Output: Stool 3 1 Other: Voiding Method External Catheter External Catheter # Voids 3 1 # Bowel Movements 1 1 - Labs CBC & Chem 7: 11/27/23 03:42 11/27/23 03:37 Labs: Abnormal Lab Results - Last 24 Hours (Table) 11/26/23 11/26/23 11/27/23 Range/Units 16:04 20:04 03:37 WBC (3.8-10.6) k/uL RBC (3.80-5.40) m/uL Hgb (11.4-16.0) gm/dL Hct (34.0-46.0) % MCV (80.0-100.0) fL MCH (25.0-35.0) pg MCHC (31.0-37.0) g/dL RDW (11.5-15.5) % Neutrophils # (1.3-7.7) k/uL Lymphocytes # (1.0-4.8) k/uL Sodium 132 L (137-145) mmol/L Carbon Dioxide 19 L (22-30) mmol/L BUN 88 H (7-17) mg/dL Creatinine 1.62 H (0.52-1.04) mg/dL Glucose 220 H (74-99) mg/dL POC Glucose (mg/dL) 161 H 144 H (70-110) mg/dL Calcium 8.3 L (8.4-10.2) mg/dL Iron (50-170) UG/DL TIBC (228-460) UG/DL Transferrin (204.0-354.0) mg/dL Ferritin (10.0-291.0) ng/mL Total Bilirubin 4.4 H (0.2-1.3) mg/dL AST 230 H (14-36) U/L ALT 72 H (4-34) U/L Alkaline Phosphatase 1125 H (38-126) U/L Ammonia (<30) umol/L Total Protein 5.5 L (6.3-8.2) g/dL Albumin 2.3 L (3.5-5.0) g/dL 11/27/23 11/27/23 11/27/23 Range/Units 03:42 03:42 08:16 WBC 25.5 H (3.8-10.6) k/uL RBC 3.58 L (3.80-5.40) m/uL Hgb 8.6 L (11.4-16.0) gm/dL Hct 28.4 L (34.0-46.0) % MCV 79.3 L (80.0-100.0) fL MCH 23.9 L (25.0-35.0) pg MCHC 30.2 L (31.0-37.0) g/dL RDW 20.9 H (11.5-15.5) % Neutrophils # 24.1 H (1.3-7.7) k/uL Lymphocytes # 0.6 L (1.0-4.8) k/uL Sodium (137-145) mmol/L Carbon Dioxide (22-30) mmol/L BUN (7-17) mg/dL Creatinine (0.52-1.04) mg/dL Glucose (74-99) mg/dL POC Glucose (mg/dL) 230 H (70-110) mg/dL Calcium (8.4-10.2) mg/dL Iron (50-170) UG/DL TIBC (228-460) UG/DL Transferrin (204.0-354.0) mg/dL Ferritin (10.0-291.0) ng/mL Total Bilirubin (0.2-1.3) mg/dL AST (14-36) U/L ALT (4-34) U/L Alkaline Phosphatase (38-126) U/L Ammonia 78 H (<30) umol/L Total Protein (6.3-8.2) g/dL Albumin (3.5-5.0) g/dL 11/27/23 11/27/23 Range/Units 09:09 12:10 WBC (3.8-10.6) k/uL RBC (3.80-5.40) m/uL Hgb (11.4-16.0) gm/dL Hct (34.0-46.0) % MCV (80.0-100.0) fL MCH (25.0-35.0) pg MCHC (31.0-37.0) g/dL RDW (11.5-15.5) % Neutrophils # (1.3-7.7) k/uL Lymphocytes # (1.0-4.8) k/uL Sodium (137-145) mmol/L Carbon Dioxide (22-30) mmol/L BUN (7-17) mg/dL Creatinine (0.52-1.04) mg/dL Glucose (74-99) mg/dL POC Glucose (mg/dL) 176 H (70-110) mg/dL Calcium (8.4-10.2) mg/dL Iron 32 L (50-170) UG/DL TIBC 146 L (228-460) UG/DL Transferrin 104.0 L (204.0-354.0) mg/dL Ferritin 1944.0 H (10.0-291.0) ng/mL Total Bilirubin (0.2-1.3) mg/dL AST (14-36) U/L ALT (4-34) U/L Alkaline Phosphatase (38-126) U/L Ammonia (<30) umol/L Total Protein (6.3-8.2) g/dL Albumin (3.5-5.0) g/dL
[2023-11-27 15:32] LABS: Appearance,Urine Cloudy (Clear); Bacteria,Urine Rare /hpf; Bilirubin,Urine 1+ (Negative); Blood,Urine Negative (Negative); Color,Urine Yellow; Glucose,Urine (UA) Negative (Negative); Hyaline Casts,Urine 15 /lpf (0-2); Ketones,Urine Negative (Negative); Leukocyte Esterase,Urine Negative (Negative); Mucus,Urine Rare /hpf; Nitrite,Urine Negative (Negative); Protein,Urine Trace (Negative); RBC,Urine <1 /hpf (0-5); Specific Gravity,Urine 1.016 (1.001-1.035); Squamous Epithelial Cell,Urine 17 /hpf (0-4); WBC,Urine <1 /hpf (0-5)
[2023-11-27 17:12] LABS: Glucose,Whole Blood 184 mg/dL (70-110)
[2023-11-27 20:33] LABS: Glucose,Whole Blood 176 mg/dL (70-110)
[2023-11-28 05:25] LABS: ALT 78 U/L (4-34); AST 242 U/L (14-36); African American GFR (CKD) 38 (>60 ml/min/1.73 sqM); Albumin 2.4 g/dL (3.5-5.0); Albumin/Globulin Ratio 0.7; Anion Gap 11 mmol/L; Blood Urea Nitrogen 97 mg/dL (7-17); Calcium 8.9 mg/dL (8.4-10.2); Carbon Dioxide 21 mmol/L (22-30); Chloride 105 mmol/L (98-107); Globulin 3.4 g/dL; Glucose 157 mg/dL (74-99); Non-African American GFR(CKD) 33 (>60 ml/min/1.73 sqM); Potassium 4.1 mmol/L (3.5-5.1); Sodium 137 mmol/L (137-145); Total Bilirubin 4.4 mg/dL (0.2-1.3); Total Protein 5.8 g/dL (6.3-8.2)
[2023-11-28 05:34] LABS: Alkaline Phosphatase 1164 U/L (38-126)
[2023-11-28 05:46] LABS: Anisocytosis Moderate; HCT 32.8 % (34.0-46.0); HGB 9.9 gm/dL (11.4-16.0); Hypochromasia Marked; MCH 23.8 pg (25.0-35.0); MCV 79.2 fL (80.0-100.0); Mean Platelet Volume 9.2; Microcytosis Slight; Platelet Count 375 k/uL (150-450); Poikilocytosis Slight; RBC 4.14 m/uL (3.80-5.40); RDW 21.5 % (11.5-15.5); WBC 28.2 k/uL (3.8-10.6)
[2023-11-28 07:04] LABS: Anisocytosis (M) Present; Band Neutrophils % 14 %; Hypochromasia (M) Present; Lymphocytes # (M) 0.56 k/uL (1.0-4.8); Monocytes # (M) 0.28 k/uL (0-1.0); Neutrophils % (M) 85 %; Nucleated Red Blood Cells 0 /100 WBC (0-0); Poikilocytosis (M) Present; Polychromasia Present; Total Cells Counted 200
[2023-11-28 07:17] LABS: Glucose,Whole Blood 162 mg/dL (70-110)
[2023-11-28 12:17] LABS: Glucose,Whole Blood 154 mg/dL (70-110)
--- NOTE | 2023-11-28 12:52 | P.PN ---
Subjective patient is seen for follow-up for acute kidney injury. Maintained on IV fluids as patient is receiving chemotherapy. Renal function has improved since admission. Serum creatinine decreased to 1.6 however poor urine output noted. No complaints of shortness of breath however significant leg edema noted. Objective - Vital Signs Vital signs: Vital Signs Temp 97.8 F 11/28/23 12:10 Pulse 105 H 11/28/23 12:10 Resp 19 11/28/23 12:10 BP 93/61 11/28/23 12:10 Pulse Ox 100 11/28/23 12:10 FiO2 Intake & Output 11/27/23 11/28/23 11/28/23 18:59 06:59 18:59 Intake Total 2480 240 Output Total 1 500 400 Balance 2479 -500 -160 Weight 83.5 kg Intake: Oral 2480 240 Output: Urine 500 400 Stool 1 Other: Voiding Method External Catheter External Catheter # Voids 2 1 - Exam patient is awake, comfortable, no acute distress. Examination of the heart S1 and S2 Examination of the lungs bilateral breath sounds are heard Abdomen is soft with tenderness noted in the right upper quadrant. Examination of lower extremity shows 2+ edema bilaterally INSTRUCTIONAL TECHNOLOGY DIRECTOR exam grossly intact - Labs CBC & Chem 7: 11/28/23 04:26 11/28/23 04:26 Labs: Abnormal Lab Results - Last 24 Hours (Table) 11/27/23 11/27/23 11/27/23 Range/Units 09:09 15:12 17:10 WBC (3.8-10.6) k/uL Hgb (11.4-16.0) gm/dL Hct (34.0-46.0) % MCV (80.0-100.0) fL MCH (25.0-35.0) pg MCHC (31.0-37.0) g/dL RDW (11.5-15.5) % Neutrophils # (Manual) (1.3-7.7) k/uL Lymphocytes # (Manual) (1.0-4.8) k/uL Carbon Dioxide (22-30) mmol/L BUN (7-17) mg/dL Creatinine (0.52-1.04) mg/dL Glucose (74-99) mg/dL POC Glucose (mg/dL) 184 H (70-110) mg/dL Iron 32 L (50-170) UG/DL TIBC 146 L (228-460) UG/DL Transferrin 104.0 L (204.0-354.0) mg/dL Ferritin 1944.0 H (10.0-291.0) ng/mL Total Bilirubin (0.2-1.3) mg/dL AST (14-36) U/L ALT (4-34) U/L Alkaline Phosphatase (38-126) U/L Total Protein (6.3-8.2) g/dL Albumin (3.5-5.0) g/dL Urine Appearance Cloudy H (Clear) Urine Protein Trace H (Negative) Urine Bilirubin 1+ H (Negative) Ur Squamous Epith Cells 17 H (0-4) /hpf Urine Bacteria Rare H (None) /hpf Hyaline Casts 15 H (0-2) /lpf Urine Mucus Rare H (None) /hpf 11/27/23 11/28/23 11/28/23 Range/Units 20:32 04:26 04:26 WBC 28.2 H (3.8-10.6) k/uL Hgb 9.9 L (11.4-16.0) gm/dL Hct 32.8 L (34.0-46.0) % MCV 79.2 L (80.0-100.0) fL MCH 23.8 L (25.0-35.0) pg MCHC 30.0 L (31.0-37.0) g/dL RDW 21.5 H (11.5-15.5) % Neutrophils # (Manual) 27.90 H (1.3-7.7) k/uL Lymphocytes # (Manual) 0.56 L (1.0-4.8) k/uL Carbon Dioxide 21 L (22-30) mmol/L BUN 97 H (7-17) mg/dL Creatinine 1.68 H (0.52-1.04) mg/dL Glucose 157 H (74-99) mg/dL POC Glucose (mg/dL) 176 H (70-110) mg/dL Iron (50-170) UG/DL TIBC (228-460) UG/DL Transferrin (204.0-354.0) mg/dL Ferritin (10.0-291.0) ng/mL Total Bilirubin 4.4 H (0.2-1.3) mg/dL AST 242 H (14-36) U/L ALT 78 H (4-34) U/L Alkaline Phosphatase 1164 H (38-126) U/L Total Protein 5.8 L (6.3-8.2) g/dL Albumin 2.4 L (3.5-5.0) g/dL Urine Appearance (Clear) Urine Protein (Negative) Urine Bilirubin (Negative) Ur Squamous Epith Cells (0-4) /hpf Urine Bacteria (None) /hpf Hyaline Casts (0-2) /lpf Urine Mucus (None) /hpf 11/28/23 11/28/23 Range/Units 07:02 12:05 WBC (3.8-10.6) k/uL Hgb (11.4-16.0) gm/dL Hct (34.0-46.0) % MCV (80.0-100.0) fL MCH (25.0-35.0) pg MCHC (31.0-37.0) g/dL RDW (11.5-15.5) % Neutrophils # (Manual) (1.3-7.7) k/uL Lymphocytes # (Manual) (1.0-4.8) k/uL Carbon Dioxide (22-30) mmol/L BUN (7-17) mg/dL Creatinine (0.52-1.04) mg/dL Glucose (74-99) mg/dL POC Glucose (mg/dL) 162 H 154 H (70-110) mg/dL Iron (50-170) UG/DL TIBC (228-460) UG/DL Transferrin (204.0-354.0) mg/dL Ferritin (10.0-291.0) ng/mL Total Bilirubin (0.2-1.3) mg/dL AST (14-36) U/L ALT (4-34) U/L Alkaline Phosphatase (38-126) U/L Total Protein (6.3-8.2) g/dL Albumin (3.5-5.0) g/dL Urine Appearance (Clear) Urine Protein (Negative) Urine Bilirubin (Negative) Ur Squamous Epith Cells (0-4) /hpf Urine Bacteria (None) /hpf Hyaline Casts (0-2) /lpf Urine Mucus (None) /hpf Assessment and Plan Assessment: 1. Acute kidney injury, ATN secondary to hypotension. UA is benign angiotensin receptor blockers and diuretics currently on hold. Currently maintained on IV fluids due to chemotherapy. Add Lasix due to volume overload. 2. Metastatic cholangiocarcinoma, recently diagnosed almost started on chemotherapy 3. History of CHF with preserved ejection fraction. current chest x-ray shows no pulmonary vascular congestion. 4. Mental status changes possibly related to hepatic encephalopathy. 5. Hyperkalemia associated with acute kidney injury any in the setting of use of MAGGI inhibitor's and potassium supplementation, improved 6. History of bipolar disorder 7. Volume overload with significant third spacing. Plan: Minimize IV fluids Add IV Lasix If urine output remains low patient will need a straight cath to rule out urine retention as bladder scan will not be accurate due to ascitic fluid. Repeat labs in a.m.
[2023-11-28] MEDS: FUROSEMIDE 10 MG/ML 2 ML VIAL IV SCH (13:33)
[2023-11-28] MEDS: SODIUM CHLORIDE 0.9% 1,000 ML IV SCH (13:37)
--- NOTE | 2023-11-28 13:39 | P.PN ---
Subjective Progress Note Date: 11/28/23 This is a 58-year-old patient, follows Dr. Rincon. Chronic stable medical conditions include GERD, diabetes, hypertension, hyperlipidemia, osteoarthritis, hiatal hernia. Gastrojejunal gastric bypass in 2013. CHF with preserved EF October 11, 2023:, by Dr. Hooks: EGD with rigid dilator 57 [place] to address lower esophageal sphincter and esophageal dysmotility.. 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 Port was placed recently. - oncologist Dr. Calin Atkins. Patient was discharged from the hospital last week following admission for congestive heart failure exacerbation with preserved ejection fraction. Also has some ascites but not felt to be enough for paracentesis. Patient is due to start chemotherapy shortly. Patient recently was admitted with CHF with preserved EF exacerbation. Subsequently was in the hospital from November 15 through November 18 with PE. Discharged on Eliquis. Just prior to leaving patient had decided to become DNR. Patient now presents feeling increasing short of breath. Tired. Decreased appetite. Not ambulating much. Decreased oral intake. In the ER troponin was 1.1. Patient denies any chest pain. Dr. Smith had spoken to the chicken cleaner Dr. Regis Morrison. Not for any further intervention. Patient denies any cough. Just tired. November 24: Patient was seen this afternoon. Mother at the bedside. Patient more awake today. Tired. Decreased appetite. Discussed. Patient today wants to go back to being a full code. Oncology ordered patient to receive fluorouracil. And leucovorin. Patient initial symptoms felt to be combination of r acute kidney injury and hepatic encephalopathy. Patient remains on lactu lose November 25: Sitting up in bed. Mother at the bedside. Following medication changes being done. Dilaudid is being discontinued. Will give Tylenol 3 as needed during daytime. [place] to continue at night. Lipitor Abilify continues to remain off. Patient is on Pradaxa instead of Eliquis. On Diflucan for oral candidiasis. On chemo agents per oncology. Slight improvement in hepatic numbers 11/26. Patient seen and examined. Vital signs this morning the patient had 74, heart rate of 100, blood pressure 103/68. Blood work done this morning showed WBC 25.5, hemoglobin 8.6, platelet count 407, sodium 132, potassium 4, BUN 18, creatinine 1.62. Complaining of weakness. Complaining of shortness of breath on exertion 11/27. Patient seen and examined. Complaining of difficulty in swallowing, states her mouth is very dry. Complaining of abdominal pain REVIEW OF SYSTEMS: CONSTITUTIONAL: No fever, no malaise,. CARDIOVASCULAR: No chest pain, no palpitations, no syncope. PULMONARY: As mentioned above GASTROINTESTINAL: No diarrhea, no nausea, no vomiting. NEUROLOGICAL: No headaches, no weakness, PHYSICAL EXAMINATION: GENERAL: The patient is alert and oriented x3, chronically ill looking HEENT: Pupils are round and equally reacting to light. EOMI. No scleral icterus. No conjunctival pallor. Normocephalic, atraumatic. No pharyngeal erythema. No thyromegaly. CARDIOVASCULAR: S1 and S2 present. No murmurs, rubs, or gallops. PULMONARY: Chest is clear to auscultation, no wheezing or crackles. ABDOMEN: Soft, nontender, nondistended, normoactive bowel sounds. No palpable organomegaly. MUSCULOSKELETAL: No joint swelling or deformity. EXTREMITIES: No cyanosis, clubbing, or pedal edema. NEUROLOGICAL: Gross neurological examination did not reveal any focal deficits. SKIN: No rashes. Assessment and plan -Acute metabolic encephalopathy/possible hepatic encephalopathy, delirium. From acute kidney injury, and liver dysfunction: Resolved -Acute non-ST elevation [place], type II from hemodynamic mismatch. Continue medical management - hepatic encephalopathy: Improved Lactulose 20 g twice daily -Acute kidney injury possibly combination of prerenal and ATN. -Hyperkalemia secondary to acute kidney injury. 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 MRI brain negative Given fluorouracil, leucovorin -Started on chemotherapy, November [address] Atkins Palliative chemotherapy -Microcytic anemia to include iron deficiency from underlying malignancy and nutritional component from decreased oral intake. Monitor CBC -Bipolar disorder Abilify-hold. Trazodone. Lamictal -Diabetes mellitus type 2 on oral hypoglycemic Monitor blood sugar levels, continue sliding scale insulin -GERD Protonix -Moderate protein calorie malnutrition decreased oral intake. Ensure -Hypotension [place] wrap. Midodrine. -COPD in prior smoker Albuterol as needed -Gastrojejunal bypass 2013 Patient does follow with Dr. Agatha Jaeger Labs and medication were reviewed.. Continue same treatment. Continue with symptomatic treatment. Resume home medication. Monitor labs and vitals. DVT and GI prophylaxis. Further recommendations as per clinical course of the patient Dictation was produced using [employer] dictation software. please excuse any grammatical, word or spelling errors. Objective - Vital Signs Vital signs: Vital Signs Temp 97.8 F 11/28/23 12:10 Pulse 105 H 11/28/23 12:10 Resp 19 11/28/23 12:10 BP 93/61 11/28/23 12:10 Pulse Ox 100 11/28/23 12:10 FiO2 Intake & Output 11/27/23 11/28/23 11/28/23 18:59 06:59 18:59 Intake Total 2480 240 Output Total 1 500 800 Balance 2479 -500 -560 Weight 83.5 kg Intake: Oral 2480 240 Output: Urine 500 800 Stool 1 Other: Voiding Method External Catheter External Catheter # Voids 2 1 - Labs CBC & Chem 7: 11/28/23 04:26 11/28/23 04:26 Labs: Abnormal Lab Results - Last 24 Hours (Table) 11/27/23 11/27/23 11/27/23 Range/Units 15:12 17:10 20:32 WBC (3.8-10.6) k/uL Hgb (11.4-16.0) gm/dL Hct (34.0-46.0) % MCV (80.0-100.0) fL MCH (25.0-35.0) pg MCHC (31.0-37.0) g/dL RDW (11.5-15.5) % Neutrophils # (Manual) (1.3-7.7) k/uL Lymphocytes # (Manual) (1.0-4.8) k/uL Carbon Dioxide (22-30) mmol/L BUN (7-17) mg/dL Creatinine (0.52-1.04) mg/dL Glucose (74-99) mg/dL POC Glucose (mg/dL) 184 H 176 H (70-110) mg/dL Total Bilirubin (0.2-1.3) mg/dL AST (14-36) U/L ALT (4-34) U/L Alkaline Phosphatase (38-126) U/L Total Protein (6.3-8.2) g/dL Albumin (3.5-5.0) g/dL Urine Appearance Cloudy H (Clear) Urine Protein Trace H (Negative) Urine Bilirubin 1+ H (Negative) Ur Squamous Epith Cells 17 H (0-4) /hpf Urine Bacteria Rare H (None) /hpf Hyaline Casts 15 H (0-2) /lpf Urine Mucus Rare H (None) /hpf 11/28/23 11/28/23 11/28/23 Range/Units 04:26 04:26 07:02 WBC 28.2 H (3.8-10.6) k/uL Hgb 9.9 L (11.4-16.0) gm/dL Hct 32.8 L (34.0-46.0) % MCV 79.2 L (80.0-100.0) fL MCH 23.8 L (25.0-35.0) pg MCHC 30.0 L (31.0-37.0) g/dL RDW 21.5 H (11.5-15.5) % Neutrophils # (Manual) 27.90 H (1.3-7.7) k/uL Lymphocytes # (Manual) 0.56 L (1.0-4.8) k/uL Carbon Dioxide 21 L (22-30) mmol/L BUN 97 H (7-17) mg/dL Creatinine 1.68 H (0.52-1.04) mg/dL Glucose 157 H (74-99) mg/dL POC Glucose (mg/dL) 162 H (70-110) mg/dL Total Bilirubin 4.4 H (0.2-1.3) mg/dL AST 242 H (14-36) U/L ALT 78 H (4-34) U/L Alkaline Phosphatase 1164 H (38-126) U/L Total Protein 5.8 L (6.3-8.2) g/dL Albumin 2.4 L (3.5-5.0) g/dL Urine Appearance (Clear) Urine Protein (Negative) Urine Bilirubin (Negative) Ur Squamous Epith Cells (0-4) /hpf Urine Bacteria (None) /hpf Hyaline Casts (0-2) /lpf Urine Mucus (None) /hpf 09/08/24 Range/Units 12:05 WBC (3.8-10.6) k/uL Hgb (11.4-16.0) gm/dL Hct (34.0-46.0) % MCV (80.0-100.0) fL MCH (25.0-35.0) pg MCHC (31.0-37.0) g/dL RDW (11.5-15.5) % Neutrophils # (Manual) (1.3-7.7) k/uL Lymphocytes # (Manual) (1.0-4.8) k/uL Carbon Dioxide (22-30) mmol/L BUN (7-17) mg/dL Creatinine (0.52-1.04) mg/dL Glucose (74-99) mg/dL POC Glucose (mg/dL) 154 H (70-110) mg/dL Total Bilirubin (0.2-1.3) mg/dL AST (14-36) U/L ALT (4-34) U/L Alkaline Phosphatase (38-126) U/L Total Protein (6.3-8.2) g/dL Albumin (3.5-5.0) g/dL Urine Appearance (Clear) Urine Protein (Negative) Urine Bilirubin (Negative) Ur Squamous Epith Cells (0-4) /hpf Urine Bacteria (None) /hpf Hyaline Casts (0-2) /lpf Urine Mucus (None) /hpf
--- NOTE | 2023-11-28 13:39 | P.PN ---
Subjective Progress Note Date: 11/28/23 Principal diagnosis: Metastatic cholangiocarcinoma -Afebrile, no acute events overnight -Today reports increased fatigue with intermittent abdominal pain and leg swelling -She also notes dryness in the mouth, which makes it difficult to swallow solids and liquids Objective - Vital Signs Vital signs: Vital Signs Temp 97.8 F 11/28/23 12:10 Pulse 105 H 11/28/23 12:10 Resp 19 11/28/23 12:10 BP 93/61 11/28/23 12:10 Pulse Ox 100 11/28/23 12:10 FiO2 Intake & Output 11/27/23 11/28/23 11/28/23 18:59 06:59 18:59 Intake Total 2480 240 Output Total 1 500 800 Balance 7929 500 -560 Weight 83.5 kg Intake: Oral 2480 240 Output: Urine 500 800 Stool 1 Other: Voiding Method External Catheter External Catheter # Voids 2 1 - Constitutional Constitutional Comment(s): Appears more fatigued today General appearance: Present: cooperative, no acute distress - EENT Eyes: Present: anicteric sclerae, EOMI - Respiratory Respiratory: bilateral: CTA - Cardiovascular Rhythm: regular - Peripheral edema leg Peripheral Edema: bilateral: 2+ - Gastrointestinal General gastrointestinal: Present: distended, hepatomegaly, soft, tenderness Localized gastrointestinal: tender: RUQ - Integumentary Integumentary: Present: pale. Absent: rash - Neurologic Neurologic: Present: CNII-XII intact. Absent: focal deficits - Labs CBC & Chem 7: 11/28/23 04:26 11/28/23 04:26 Labs: Abnormal Lab Results - Last 24 Hours (Table) 11/27/23 11/27/23 11/27/23 Range/Units 15:12 17:10 20:32 WBC (3.8-10.6) k/uL Hgb (11.4-16.0) gm/dL Hct (34.0-46.0) % MCV (80.0-100.0) fL MCH (25.0-35.0) pg MCHC (31.0-37.0) g/dL RDW (11.5-15.5) % Neutrophils # (Manual) (1.3-7.7) k/uL Lymphocytes # (Manual) (1.0-4.8) k/uL Carbon Dioxide (22-30) mmol/L BUN (7-17) mg/dL Creatinine (0.52-1.04) mg/dL Glucose (74-99) mg/dL POC Glucose (mg/dL) 184 H 176 H (70-110) mg/dL Total Bilirubin (0.2-1.3) mg/dL AST (14-36) U/L ALT (4-34) U/L Alkaline Phosphatase (38-126) U/L Total Protein (6.3-8.2) g/dL Albumin (3.5-5.0) g/dL Urine Appearance Cloudy H (Clear) Urine Protein Trace H (Negative) Urine Bilirubin 1+ H (Negative) Ur Squamous Epith Cells 17 H (0-4) /hpf Urine Bacteria Rare H (None) /hpf Hyaline Casts 15 H (0-2) /lpf Urine Mucus Rare H (None) /hpf 11/28/23 11/28/23 11/28/23 Range/Units 04:26 04:26 07:02 WBC 28.2 H (3.8-10.6) k/uL Hgb 9.9 L (11.4-16.0) gm/dL Hct 32.8 L (34.0-46.0) % MCV 79.2 L (80.0-100.0) fL MCH 23.8 L (25.0-35.0) pg MCHC 30.0 L (31.0-37.0) g/dL RDW 21.5 H (11.5-15.5) % Neutrophils # (Manual) 27.90 H (1.3-7.7) k/uL Lymphocytes # (Manual) 0.56 L (1.0-4.8) k/uL Carbon Dioxide 21 L (22-30) mmol/L BUN 97 H (7-17) mg/dL Creatinine 1.68 H (0.52-1.04) mg/dL Glucose 157 H (74-99) mg/dL POC Glucose (mg/dL) 162 H (70-110) mg/dL Total Bilirubin 4.4 H (0.2-1.3) mg/dL AST 242 H (14-36) U/L ALT 78 H (4-34) U/L Alkaline Phosphatase 1164 H (38-126) U/L Total Protein 5.8 L (6.3-8.2) g/dL Albumin 2.4 L (3.5-5.0) g/dL Urine Appearance (Clear) Urine Protein (Negative) Urine Bilirubin (Negative) Ur Squamous Epith Cells (0-4) /hpf Urine Bacteria (None) /hpf Hyaline Casts (0-2) /lpf Urine Mucus (None) /hpf 11/28/23 Range/Units 12:05 WBC (3.8-10.6) k/uL Hgb (11.4-16.0) gm/dL Hct (34.0-46.0) % MCV (80.0-100.0) fL MCH (25.0-35.0) pg MCHC (31.0-37.0) g/dL RDW (11.5-15.5) % Neutrophils # (Manual) (1.3-7.7) k/uL Lymphocytes # (Manual) (1.0-4.8) k/uL Carbon Dioxide (22-30) mmol/L BUN (7-17) mg/dL Creatinine (0.52-1.04) mg/dL Glucose (74-99) mg/dL POC Glucose (mg/dL) 154 H (70-110) mg/dL Total Bilirubin (0.2-1.3) mg/dL AST (14-36) U/L ALT (4-34) U/L Alkaline Phosphatase (38-126) U/L Total Protein (6.3-8.2) g/dL Albumin (3.5-5.0) g/dL Urine Appearance (Clear) Urine Protein (Negative) Urine Bilirubin (Negative) Ur Squamous Epith Cells (0-4) /hpf Urine Bacteria (None) /hpf Hyaline Casts (0-2) /lpf Urine Mucus (None) /hpf Assessment and Plan (1) Cholangiocarcinoma metastatic to liver Current Visit: Yes Status: Acute Code(s): C22.1 - INTRAHEPATIC BILE DUCT CARCINOMA; C78.7 - SECONDARY MALIG NEOPLASM OF LIVER AND INTRAHEPATIC BILE DUCT SNOMED Code(s): 4851345513 (2) Pulmonary embolism Current Visit: No Status: Acute Priority: High Code(s): I26.99 - OTHER PULMONARY EMBOLISM WITHOUT ACUTE COR PULMONALE SNOMED Code(s): 68952593 (3) Iron deficiency anemia Current Visit: Yes Status: Acute Code(s): D50.9 - IRON DEFICIENCY ANEMIA, UNSPECIFIED SNOMED Code(s): 26746339 (4) GAYLA (acute kidney injury) Current Visit: Yes Status: Acute Code(s): N17.9 - ACUTE KIDNEY FAILURE, UNSPECIFIED SNOMED Code(s): 03171558 Plan: Metastatic cholangiocarcinoma -Diagnosis and plan of care as dictated in consult -Plan was to start the first cycle of palliative chemotherapy with ci splatin/Gemzar/Imfinzi on 11/26/2023, however treatment has had multiple delays due to 3 admissions in the past month -She has had progressive weakness and worsening liver function concerning for disease progression of cholangiocarcinoma -She was started on cycle 1, day 1 of FOLFOX on the evening of 11/26/2023 -Clinically, she appears slightly more fatigued today with intermittent abdominal pain and nausea -Zofran 4 mg IV every 8 hours is available for nausea Iron deficiency anemia -Was diagnosed in September 2023 when she was diagnosed with cholangiocarcinoma -Received 4 rounds of IV iron inpatient at that time -Repeat iron studies obtained noted iron saturation of 21.92% with ferritin of 1944 -Given the iron saturation above 20%, we will hold on additional IV iron at this time GAYLA -Improved from admission with creatinine 1.68 from 1.98 on admission -Diuretics and antihypertensives have been held along with midodrine 3 times daily started -I was concerned about hepatorenal syndrome given her worsening liver function secondary to progressive cholangiocarcinoma -IV fluids will be decreased today to 20 mL/hr -Continue to follow nephrology recommendations, appreciate their assistance Recent PE/DVT -Anticoagulation has not been restarted since admit. Due to GAYLA, will start Pradaxa 75mg BID. -Will continue to monitor kidney function, if continues to improve, will start Pradaxa 150mg BID Israel Marino MD
[2023-11-28] MEDS: NYSTATIN 100,000 UNIT/ML SUSP 500,000 UNIT/5 ML CUP PO SCH (15:46)
[2023-11-28 17:20] LABS: Glucose,Whole Blood 148 mg/dL (70-110)
[2023-11-28 20:20] LABS: Glucose,Whole Blood 149 mg/dL (70-110)
[2023-11-29 07:12] LABS: Glucose,Whole Blood 162 mg/dL (70-110)
[2023-11-29 11:53] LABS: Glucose,Whole Blood 201 mg/dL (70-110)
[2023-11-29] MEDS ORDERED: ALBUMIN HUMAN 25% 50 ML in EMPTY BAG 1 BAG IVPB SCH (13:00)
--- NOTE | 2023-11-29 13:08 | P.PN ---
Subjective Patient is seen for follow-up for acute kidney injury. Patient is receiving chemotherapy inpatient. Renal function has improved since admission. Urine output has remained low overnight, patient will get straight cath today. Patient continues to have no complaints of shortness of breath however still has significant lower extremity edema. Objective - Vital Signs Vital signs: Vital Signs Temp 97.5 F L 11/29/23 06:59 Pulse 101 H 11/29/23 06:59 Resp 16 11/29/23 06:59 BP 87/53 11/29/23 06:59 Pulse Ox 93 L 11/29/23 06:59 FiO2 Intake & Output 11/28/23 11/29/23 11/29/23 18:59 06:59 18:59 Intake Total 960 Output Total 941 440 Balance 19 -440 Weight 83 kg Intake: Oral 960 Output: Urine 940 440 Straight 250 Stool 1 Other: Voiding Method External Catheter External Catheter # Voids 1 3 - Exam Patient seen at bedside, awake, comfortable, and in no acute distress. S1 and S2 auscultated with no rubs murmurs or gallops appreciated Lungs clear to auscultation bilaterally no rales crackles or wheezes appreciated Abdomen soft with mild tenderness noted in the right upper quadrant Examination of the lower extremities shows +2 pitting edema bilaterally No gross [employer] deformities appreciated - Labs CBC & Chem 7: 11/28/23 04:26 11/28/23 04:26 Labs: Abnormal Lab Results - Last 24 Hours (Table) 11/28/23 11/28/23 11/28/23 Range/Units 12:05 17:14 20:18 POC Glucose (mg/dL) 154 H 148 H 149 H (70-110) mg/dL 11/29/23 Range/Units 07:02 POC Glucose (mg/dL) 162 H (70-110) mg/dL Assessment and Plan Assessment: 1. Acute kidney injury, ATN secondary to hypotension. UA is benign angiotensin receptor blockers and diuretics currently on hold. Currently maintained on IV fluids due to chemotherapy. Add Lasix due to volume overload. 2. Metastatic cholangiocarcinoma, recently diagnosed almost started on chem otherapy 3. History of CHF with preserved ejection fraction. current chest x-ray shows no pulmonary vascular congestion. 4. Mental status changes possibly related to hepatic encephalopathy. 5. Hyperkalemia associated with acute kidney injury any in the setting of use of MAGGI inhibitor's and potassium supplementation, improved 6. History of bipolar disorder 7. Volume overload with significant third spacing. Plan: Continue to minimize IV fluids Ordered UA Continue midodrine, if systolic continues to be less than 90 consider transferring to ICU 20 mg IV Lasix every 12 hours (held on 11/28, due to hypotension) Started albumin 5% 500 mL IVPB once Patient still able to make urine Repeat labs in a.m. (CMP, cortisol, and magnesium) I have seen and examined the patient with resident and agree with A&P as written. Transfer to ICU if remains hypotensive; IV albumin X1 dose now. Diuretics held.
[2023-11-29 13:10] LABS: Amorphous Sediment,Urine Moderate /hpf; Appearance,Urine Turbid (Clear); Bacteria,Urine Occasional /hpf; Bilirubin,Urine 2+ (Negative); Blood,Urine Trace (Negative); Color,Urine Dark Brown; Glucose,Urine (UA) Negative (Negative); Hyaline Casts,Urine 49 /lpf (0-2); Ketones,Urine Negative (Negative); Leukocyte Esterase,Urine Small (Negative); Mucus,Urine Occasional /hpf; Nitrite,Urine Negative (Negative); Protein,Urine 1+ (Negative); RBC,Urine 7 /hpf (0-5); Specific Gravity,Urine 1.025 (1.001-1.035); Squamous Epithelial Cell,Urine 12 /hpf (0-4); WBC,Urine 10 /hpf (0-5)
[2023-11-29] MEDS: ALBUMIN HUMAN 5% 500 ML in EMPTY BAG 1 BAG IVPB STA (13:19)
--- NOTE | 2023-11-29 13:20 | P.PN ---
Subjective Progress Note Date: 11/29/23 Principal diagnosis: cholangiocarcinoma S/p inpt chemo, FOLFOX. Reporting weakness and feeling shaky. Abd pain improved, having intermittent nausea without vomiting. Patient BP 80s systolic this morning. Reporting intermittent dizziness. Hypotension persisting, with systolic BP in 80s. IV fluids and lasix has been given due to worsening BLE edema, anasarca. Continues on midodrine Objective - Vital Signs Vital signs: Vital Signs Temp 97.5 F L 11/29/23 06:59 Pulse 94 11/29/23 08:34 Resp 16 11/29/23 06:59 BP 87/53 11/29/23 06:59 Pulse Ox 93 L 11/29/23 06:59 FiO2 Intake & Output 11/28/23 11/29/23 11/29/23 18:59 06:59 18:59 Intake Total 960 Output Total 941 440 Balance 19 -440 Weight 83 kg Intake: Oral 960 Output: Urine 940 440 Straight 250 Stool 1 Other: Voiding Method External Catheter External Catheter # Voids 1 3 - Constitutional General appearance: Present: no acute distress - EENT Eyes: Present: EOMI ENT: Present: hearing grossly normal - Respiratory Details: breathing is even and unlabored - Cardiovascular Details: skin warm and dry - Peripheral edema leg Peripheral Edema: bilateral: 3+ - Gastrointestinal General gastrointestinal: Present: distended, soft. Absent: tenderness - Integumentary Integumentary: Absent: cyanotic - Musculoskeletal Musculoskeletal: Present: generalized weakness - Psychiatric Psychiatric: Present: A&O x's 3 - Labs CBC & Chem 7: 11/28/23 04:26 11/28/23 04:26 Labs: Abnormal Lab Results - Last 24 Hours (Table) 11/28/23 11/28/23 11/28/23 Range/Units 12:05 17:14 20:18 POC Glucose (mg/dL) 154 H 148 H 149 H (70-110) mg/dL 11/29/23 Range/Units 07:02 POC Glucose (mg/dL) 162 H (70-110) mg/dL Assessment and Plan (1) Cholangiocarcinoma Current Visit: Yes Status: Acute Priority: High Code(s): C22.1 - INTRAHEPATIC BILE DUCT CARCINOMA SNOMED Code(s): 784470238 (2) Dehydration Current Visit: Yes Status: Acute Code(s): E86.0 - DEHYDRATION SNOMED Code(s): 82254738 (3) NSTEMI (non-ST elevated myocardial infarction) Current Visit: Yes Status: Acute Priority: High Code(s): I21.4 - NON-ST ELEVATION (NSTEMI) MYOCARDIAL INFARCTION SNOMED Code(s): 35811535 (4) Renal insufficiency Current Visit: Yes Status: Acute Priority: High Code(s): N28.9 - DISORDER OF KIDNEY AND URETER, UNSPECIFIED SNOMED Code(s): 264984122 (5) Abdominal pain Current Visit: Yes Status: Acute Priority: High Code(s): R10.9 - UNSPECIFIED ABDOMINAL PAIN SNOMED Code(s): 14800576 (6) Transaminitis Current Visit: Yes Status: Acute Priority: High Code(s): R74.01 - ELEVATION OF LEVELS OF LIVER TRANSAMINASE LEVELS SNOMED Code(s): 094155396 Plan: Metastatic cholangiocarcinoma -Diagnosis and plan of care as dictated in consult -Plan was to start the first cycle of palliative chemotherapy with cisplatin/Gemzar/Imfinzi on 11/26/2023, however treatment has had multiple delays due to 3 admissions in the past month -She has had progressive weakness and worsening liver function concerning for disease progression of cholangiocarcinoma -She was started on cycle 1, day 1 of FOLFOX on the evening of 11/26/2023, completed on 11/27 -Clinically, she is ahving perssisting fatigue and weakness, with intermittent abdominal pain and nausea -Zofran 4 mg IV every 8 hours is available for nausea Iron deficiency anemia -Was diagnosed in September 2023 when she was diagnosed with cholangiocarcinoma -Received 4 rounds of IV iron inpatient at that time -Repeat iron studies obtained noted iron saturation of 21.92% with ferritin of 1944 -Given the iron saturation above 20%, we will hold on additional IV iron at this time GAYLA -Improved from admission with creatinine 1.68 from 1.98 on admission -Diuretics and antihypertensives were held along with midodrine 3 times daily started -I was concerned about hepatorenal syndrome given her worsening liver function secondary to progressive cholangiocarcinoma -Due to worsening BLE edema and anasarca, IV fluids have been held, and lasix started. -Today, BP noted again in the 80s systolically, c/o dizziness. Will hold lasix. 500cc albumin infusion ordered and octreotide TID started -Continue to follow nephrology recommendations, appreciate their assistance Mucositis: -Oral hygiene daily -Salt and soda rinses and Kools soln ordered Recent PE/DVT -Due to GAYLA, will start Pradaxa 75mg BID. -Continue to monitor kidney function. Will plan to start Pradaxa 150mg BID once kidney function acutely recovered attests: I have seen and examined patient, performed H&P, developed impression and plan of care. Discussed with dictator. Agree with documentation, dictated as a scribe
[2023-11-29] MEDS: MAG HYDROX/AL HYDROX/SIMETH 30 ML, diphenhydrAMINE ELIXIR 75 MG, LIDOCAINE VISCOUS 2% 3... PO SCH (13:25)
[2023-11-29] MEDS: SALT AND SODA MOUTHWASH 1,000 ML PO SCH (13:26)
[2023-11-29] MEDS: OCTREOTIDE 100 MCG/ML INJ SQ SCH (13:33)
[2023-11-29 16:24] LABS: Glucose,Whole Blood 195 mg/dL (70-110)
--- NOTE | 2023-11-29 16:33 | XR ---
EXAMINATION TYPE: XR chest 1V portable DATE OF EXAM: 11/29/2023 HISTORY: Shortness of breath. COMPARISON: 11/24/2023 TECHNIQUE: Single view of the chest is submitted. FINDINGS: Demonstrated are scattered senescent parenchymal change. There is no evidence for focal infiltrate. The heart is stable. Pulmonary venous congestion is improved compared to the prior study. Hilar and mediastinal structures are within normal limits. Degenerative changes are seen of the dorsal spine. IMPRESSION: 1. Pulmonary venous congestion is improved compared to the prior study.
[2023-11-29 16:42] LABS: Glucose,Whole Blood 195 mg/dL (70-110)
[2023-11-29] MEDS: SODIUM CHLORIDE 0.9% 1,000 ML IV SCH (16:42)
[2023-11-29] MEDS: SODIUM CHLORIDE 0.9% 1,000 ML IV ONE (16:48)
[2023-11-29] MEDS: CEFEPIME 2 GM in SODIUM CHLORIDE 0.9% 100 ML IVPB SCH (16:52)
--- NOTE | 2023-11-29 16:55 | P.CNPUL ---
History of Present Illness Consult date: 11/29/23 Requesting physician: Frank Perkins Reason for consult: other (Critical care management) Chief complaint: Hypotension History of present illness: This is a 58-year-old female patient with a known history of chronic obstructive pulmonary disease, chronic tobacco dependence, atrial flutter, diabetes mellitus type 2 hypertension, hyperlipidemia bipolar disorder. She also has a recent diagnosis of cholangiocarcinoma with metastasis. She was to be initiated on cisplatin/Gemzar/Imfinzi however the patient has had recent multiple admissions delaying her treatment. She was readmitted here again on 11/24/2023 with shortness of breath and right sided abdominal pain. She was seen and evaluated by medical oncology who initiated the patient on FOLFOX. Today she had developed hypotension with mean arterial pressures in the 50s. She was subsequently transferred to the intensive care unit we are consulted for the same. She is seen in the ICU awake and alert in no acute distress. She is maintaining O2 saturations in the 90s on 3 L/min per nasal cannula. She is weak. She is afebrile. Chest x-ray is showing improvement in the pulmonary venous congestion. Blood cultures and procalcitonin level pending. Urinalysis revealing turbid urine with high WBCs and occasional bacteria. Culture pending. White count 28.2. Hemoglobin 9.9. Platelets 375. Sodium 137. Potassium 4.1. Bicarb 21. BUN 97. Creatinine 1.68. Glucose 157. AST 242. ALT 78. Alk phos 1164. On normal saline at 100 mL/h. Review of Systems REVIEW OF SYSTEMS: CONSTITUTIONAL: Positive for generalized weakness. Denies any recent significant weight loss or weight gain. EYES: Denies change in vision. EARS, NOSE, MOUTH, THROAT: Denies headaches, denies sore throat. CARDIOVASCULAR: Denies chest pain, palpitations or syncopal episodes. RESPIRATORY: Positive for shortness of breath, no cough, congestion or hemoptysis. GASTROINTESTINAL: Denies change in appetite, denies abdominal pain GENITOURINARY: Denies hematuria, denies infections. MUSKULOSKELETAL: Denies pain, denies swelling. INTEGUMENTARY: Denies rash, denies eczema. NEUROLOGICAL: Denies recent memory loss, no recent seizure activity. PSYCHIATRIC: Denies anxiety, denies depression. HEMATOLOGIC/LYMPHATIC: Denies anemia, denies enlarged lymph nodes. Past Medical History Past Medical History: Atrial Flutter, Cancer, Diabetes Mellitus, GERD/Reflux, Hyperlipidemia, Hypertension, Osteoarthritis (OA) Additional Past Medical History / Comment(s): migraines, chronic BACK PAIN. DDD, bulging disks, hx Skin CA. GETS NAUSEA WHEN EATING OFTEN, heart murmer, palpitations, hiatal hernia, constipation, History of Any Multi-Drug Resistant Organisms: None Reported Past Surgical History: Bariatric Surgery, Breast Surgery, Section, Cholecystectomy, Hernia Repair, Orthopedic Surgery, Uterine Ablation Additional Past Surgical History / Comment(s): RT Knee arthroscopy. KAILEY MULT TOES Surgery. Sinus Surgery. Gastric Bypass 2013. kailey Breast biopsy. CERVICAL CONE biopsy. PAIN PROC BACK, kailey eyelid procedure, incisional hernia repair, Past Anesthesia/Blood Transfusion Reactions: Previous Problems w/ Anesthesia, Motion Sickness Additional Past Anesthesia/Blood Transfusion Reaction / Comment(s): Woke up once during anesthesia. Mom has difficulty coming out of anesthesia and low b/p. Past Psychological History: Anxiety, Bipolar, Depression, Panic Disorder Additional Psychological History / Comment(s): patient states she has been diagnosed with "Bipolar depression" Identity disorder Smoking Status: Former smoker Past Alcohol Use History: Occasional Additional Past Alcohol Use History / Comment(s): Started Smoking at age 16, 1 ppd. Past Drug Use History: None Reported Additional Drug Use History / Comment(s): . - Past Family History Father History Unknown: Yes Family Medical History: Cancer Additional Family Medical History / Comment(s): skin cancer Mother Family Medical History: Deep Vein Thrombosis (DVT) Medications and Allergies Home Medications Medication Instructions Recorded Confirmed Type Atorvastatin [Lipitor] 10 mg PO DAILY 07/19/17 11/24/23 History traZODone HCL 100 mg PO HS PRN 07/26/20 11/24/23 History Multivitamin [Multivitamins Adult 1 tab PO DAILY 02/27/22 11/24/23 History Gummies] Biotin [Biotin Disolve] 10,000 mcg PO DAILY 09/02/22 11/24/23 History Metoprolol Tartrate 12.5 mg PO DAILY 09/02/22 11/24/23 History Calcium Carbonate/Vitamin D3 2 tab PO DAILY 10/06/23 11/24/23 History [Calcium 500 mg Chewable Tablet] Pantoprazole [Protonix] 40 mg PO DAILY PRN 10/06/23 11/24/23 History Ferrous Sulfate [Iron (65 MG 325 mg PO DAILY 10/08/23 11/24/23 History Elemental)] Albuterol Sulfate [Albuterol 2 puff INHALATION RT-Q6H PRN 10/15/23 11/24/23 History Sulfate Hfa] Losartan [Cozaar] 12.5 mg PO DAILY 10/20/23 11/24/23 History Acetaminophen-Codeine 300-30mg 1 tab PO BID PRN 11/16/23 11/24/23 History [Tylenol w/codeine #3] Dapagliflozin Propanediol [Farxiga] 10 mg PO DAILY 11/16/23 11/24/23 History Furosemide [Lasix] 20 mg PO DAILY 11/16/23 11/24/23 History Potassium Chloride ER [K-Dur 10] 10 meq PO DAILY 11/16/23 11/24/23 History glipiZIDE [Glucotrol] 5 mg PO BID 11/16/23 11/24/23 History ARIPiprazole [Abilify] 5 mg PO DAILY #30 tab 11/19/23 11/24/23 Rx Apixaban [Eliquis Starter Pack See Taper PO BID 11/24/23 11/24/23 History (for VTE)] Fluconazole [Diflucan] 150 mg PO Q2D PRN 11/24/23 11/24/23 History HYDROcodone/APAP 5-325MG [[place] 1 tab PO HS 11/24/23 11/24/23 History 5-325] Nystatin [Nystatin Oral Susp] 500,000 unit PO Q4H 11/24/23 11/24/23 History hydrOXYzine pamoate [Vistaril] 50 mg PO QID PRN 11/24/23 11/24/23 History Allergies Allergy/AdvReac Type Severity Reaction Status Date / Time grass pollen-perennial rye, Allergy ITCHY,WATERY Verified 11/24/23 14:33 standar EYES AND [grass poll-perennial NOSE rye,std] rivaroxaban [From Xarelto] AdvReac See comment Verified 11/24/23 14:33 tape Allergy tears Uncoded 11/24/23 14:33 skin,rash, states "paper tape is ok" Physical Exam Vitals: Vital Signs Temp Pulse Pulse Resp BP BP Pulse Ox 11/29/23 14:58 86/54 09/09/24 13:56 82/44 11/29/23 13:16 68 14 84/42 92 L 11/29/23 12:04 97.7 F 103 H 16 85/55 91 L 11/29/23 08:34 94 11/29/23 08:23 98 11/29/23 06:59 97.5 F L 101 H 16 87/53 93 L 11/29/23 00:19 98 F 95 16 81/51 97 11/28/23 20:00 97.8 F 102 H 15 86/53 97 11/28/23 17:00 99 Intake and Output 11/29/23 11/29/23 11/29/23 06:59 14:59 22:59 Output Total 190 Balance -190 Output: Urine 190 Other: # Voids 3 Weight 83 kg GENERAL EXAM: Alert, weak, 58-year-old female, on 3 L nasal cannula, comfortable in no apparent distress. HEAD: Normocephalic. EYES: Normal reaction of pupils, equal size. NOSE: Clear with pink turbinates. THROAT: No erythema or exudates. NECK: No masses, no JVD. CHEST: No chest wall deformity. LUNGS: Equal air entry with faint crackles in the posterior bases. CVS: S1 and S2 normal with no audible murmur, regular rhythm. ABDOMEN: No hepatosplenomegaly, normal bowel sounds, no guarding or rigidity. SPINE: No scoliosis or deformity SKIN: No rashes CENTRAL NERVOUS SYSTEM: No focal deficits, tone is normal in all 4 extremities. EXTREMITIES: There is no peripheral edema. No clubbing, no cyanosis. Peripheral pulses are intact. Results - Laboratory Findings CBC and BMP: 11/28/23 04:26 11/28/23 04:26 PT/INR, D-dimer PT 19.9 sec (10.0-12.5) H 11/24/23 13:02 INR 2.0 (<1.2) H 11/24/23 13:02 Abnormal lab findings: Abnormal Labs 11/24/23 11/24/23 11/24/23 13:02 13:02 13:02 WBC 22.5 H RBC 3.79 L Hgb 9.1 L Hct 29.2 L MCV 77.1 L MCH 23.9 L MCHC RDW 20.5 H Neutrophils # 20.0 H Neutrophils # (Manual) Lymphocytes # 0.9 L Lymphocytes # (Manual) PT 19.9 H INR 2.0 H APTT 31.0 H Sodium 131 L Potassium 5.7 H Chloride 97 L Carbon Dioxide BUN 88 H Creatinine 1.96 H Glucose POC Glucose (mg/dL) Calcium Magnesium 3.1 H Iron TIBC Transferrin Ferritin Total Bilirubin 4.3 H AST 353 H ALT 96 H Alkaline Phosphatase 1140 H Ammonia Troponin I Total Protein 6.2 L Albumin 2.7 L Urine Appearance Urine Protein Urine Blood Urine Bilirubin Ur Leukocyte Esterase Urine RBC Urine WBC Urine WBC Clumps Ur Squamous Epith Cells Amorphous Sediment Urine Bacteria Hyaline Casts Urine Mucus 11/24/23 11/24/23 11/25/23 13:02 13:02 06:07 WBC RBC Hgb Hct MCV MCH MCHC RDW Neutrophils # Neutrophils # (Manual) Lymphocytes # Lymphocytes # (Manual) PT INR APTT Sodium Potassium Chloride Carbon Dioxide BUN 81 H Creatinine 1.99 H Glucose 64 L POC Glucose (mg/dL) Calcium 8.1 L Magnesium Iron TIBC Transferrin Ferritin Total Bilirubin 4.1 H AST 262 H ALT 82 H Alkaline Phosphatase 1159 H Ammonia 57 H Troponin I 1.160 H* Total Protein 5.5 L Albumin 2.3 L Urine Appearance Urine Protein Urine Blood Urine Bilirubin Ur Leukocyte Esterase Urine RBC Urine WBC Urine WBC Clumps Ur Squamous Epith Cells Amorphous Sediment Urine Bacteria Hyaline Casts Urine Mucus 11/26/23 11/26/23 11/26/23 06:14 06:21 16:04 WBC 23.1 H RBC 3.51 L Hgb 8.2 L Hct 27.7 L MCV 78.9 L MCH 23.5 L MCHC 29.8 L RDW 20.6 H Neutrophils # 20.5 H Neutrophils # (Manual) Lymphocytes # Lymphocytes # (Manual) PT INR APTT Sodium Potassium Chloride Carbon Dioxide BUN 81 H Creatinine 1.58 H Glucose 104 H POC Glucose (mg/dL) 161 H Calcium 8.0 L Magnesium Iron TIBC Transferrin Ferritin Total Bilirubin 4.0 H AST 201 H ALT 68 H Alkaline Phosphatase 1163 H Ammonia Troponin I Total Protein 5.3 L Albumin 2.2 L Urine Appearance Urine Protein Urine Blood Urine Bilirubin Ur Leukocyte Esterase Urine RBC Urine WBC Urine WBC Clumps Ur Squamous Epith Cells Amorphous Sediment Urine Bacteria Hyaline Casts Urine Mucus 11/26/23 11/27/23 11/27/23 20:04 03:37 03:42 WBC 25.5 H RBC 3.58 L Hgb 8.6 L Hct 28.4 L MCV 79.3 L MCH 23.9 L MCHC 30.2 L RDW 20.9 H Neutrophils # 24.1 H Neutrophils # (Manual) Lymphocytes # 0.6 L Lymphocytes # (Manual) PT INR APTT Sodium 132 L Potassium Chloride Carbon Dioxide 19 L BUN 88 H Creatinine 1.62 H Glucose 220 H POC Glucose (mg/dL) 144 H Calcium 8.3 L Magnesium Iron TIBC Transferrin Ferritin Total Bilirubin 4.4 H AST 230 H ALT 72 H Alkaline Phosphatase 1125 H Ammonia Troponin I Total Protein 5.5 L Albumin 2.3 L Urine Appearance Urine Protein Urine Blood Urine Bilirubin Ur Leukocyte Esterase Urine RBC Urine WBC Urine WBC Clumps Ur Squamous Epith Cells Amorphous Sediment Urine Bacteria Hyaline Casts Urine Mucus 11/27/23 11/27/23 11/27/23 03:42 08:16 09:09 WBC RBC Hgb Hct MCV MCH MCHC RDW Neutrophils # Neutrophils # (Manual) Lymphocytes # Lymphocytes # (Manual) PT INR APTT Sodium Potassium Chloride Carbon Dioxide BUN Creatinine Glucose POC Glucose (mg/dL) 230 H Calcium Magnesium Iron 32 L TIBC 146 L Transferrin 104.0 L Ferritin 1944.0 H Total Bilirubin AST ALT Alkaline Phosphatase Ammonia 78 H Troponin I Total Protein Albumin Urine Appearance Urine Protein Urine Blood Urine Bilirubin Ur Leukocyte Esterase Urine RBC Urine WBC Urine WBC Clumps Ur Squamous Epith Cells Amorphous Sediment Urine Bacteria Hyaline Casts Urine Mucus 11/27/23 11/27/23 11/27/23 12:10 15:12 17:10 WBC RBC Hgb Hct MCV MCH MCHC RDW Neutrophils # Neutrophils # (Manual) Lymphocytes # Lymphocytes # (Manual) PT INR APTT Sodium Potassium Chloride Carbon Dioxide BUN Creatinine Glucose POC Glucose (mg/dL) 176 H 184 H Calcium Magnesium Iron TIBC Transferrin Ferritin Total Bilirubin AST ALT Alkaline Phosphatase Ammonia Troponin I Total Protein Albumin Urine Appearance Cloudy H Urine Protein Trace H Urine Blood Urine Bilirubin 1+ H Ur Leukocyte Esterase Urine RBC Urine WBC Urine WBC Clumps Ur Squamous Epith Cells 17 H Amorphous Sediment Urine Bacteria Rare H Hyaline Casts 15 H Urine Mucus Rare H 11/27/23 11/28/23 11/28/23 20:32 04:26 04:26 WBC 28.2 H RBC Hgb 9.9 L Hct 32.8 L MCV 79.2 L MCH 23.8 L MCHC 30.0 L RDW 21.5 H Neutrophils # Neutrophils # (Manual) 27.90 H Lymphocytes # Lymphocytes # (Manual) 0.56 L PT INR APTT Sodium Potassium Chloride Carbon Dioxide 21 L BUN 97 H Creatinine 1.68 H Glucose 157 H POC Glucose (mg/dL) 176 H Calcium Magnesium Iron TIBC Transferrin Ferritin Total Bilirubin 4.4 H AST 242 H ALT 78 H Alkaline Phosphatase 1164 H Ammonia Troponin I Total Protein 5.8 L Albumin 2.4 L Urine Appearance Urine Protein Urine Blood Urine Bilirubin Ur Leukocyte Esterase Urine RBC Urine WBC Urine WBC Clumps Ur Squamous Epith Cells Amorphous Sediment Urine Bacteria Hyaline Casts Urine Mucus 11/28/23 11/28/23 11/28/23 07:02 12:05 17:14 WBC RBC Hgb Hct MCV MCH MCHC RDW Neutrophils # Neutrophils # (Manual) Lymphocytes # Lymphocytes # (Manual) PT INR APTT Sodium Potassium Chloride Carbon Dioxide BUN Creatinine Glucose POC Glucose (mg/dL) 162 H 154 H 148 H Calcium Magnesium Iron TIBC Transferrin Ferritin Total Bilirubin AST ALT Alkaline Phosphatase Ammonia Troponin I Total Protein Albumin Urine Appearance Urine Protein Urine Blood Urine Bilirubin Ur Leukocyte Esterase Urine RBC Urine WBC Urine WBC Clumps Ur Squamous Epith Cells Amorphous Sediment Urine Bacteria Hyaline Casts Urine Mucus 11/28/23 11/29/23 11/29/23 20:18 07:02 11:52 WBC RBC Hgb Hct MCV MCH MCHC RDW Neutrophils # Neutrophils # (Manual) Lymphocytes # Lymphocytes # (Manual) PT INR APTT Sodium Potassium Chloride Carbon Dioxide BUN Creatinine Glucose POC Glucose (mg/dL) 149 H 162 H 201 H Calcium Magnesium Iron TIBC Transferrin Ferritin Total Bilirubin AST ALT Alkaline Phosphatase Ammonia Troponin I Total Protein Albumin Urine Appearance Urine Protein Urine Blood Urine Bilirubin Ur Leukocyte Esterase Urine RBC Urine WBC Urine WBC Clumps Ur Squamous Epith Cells Amorphous Sediment Urine Bacteria Hyaline Casts Urine Mucus 11/29/23 11/29/23 12:25 16:23 WBC RBC Hgb Hct MCV MCH MCHC RDW Neutrophils # Neutrophils # (Manual) Lymphocytes # Lymphocytes # (Manual) PT INR APTT Sodium Potassium Chloride Carbon Dioxide BUN Creatinine Glucose POC Glucose (mg/dL) 195 H Calcium Magnesium Iron TIBC Transferrin Ferritin Total Bilirubin AST ALT Alkaline Phosphatase Ammonia Troponin I Total Protein Albumin Urine Appearance Turbid H Urine Protein 1+ H Urine Blood Trace H Urine Bilirubin 2+ H Ur Leukocyte Esterase Small H Urine RBC 7 H Urine WBC 10 H Urine WBC Clumps Few H Ur Squamous Epith Cells 12 H Amorphous Sediment Moderate H Urine Bacteria Occasional H Hyaline Casts 49 H Urine Mucus Occasional H - Diagnostic Findings Chest x-ray: image reviewed Assessment and Plan Assessment: Hypotension secondary to dehydration and possible underlying infection, suspect urinary tract infection Leukocytosis secondary to above Microcytic anemia Acute kidney injury Transaminitis Recent diagnosis of metastatic cholangiocarcinoma unable to be initiated on cisplatin/Gemzar/Imfinzi due to frequent readmissions. Received FOLFOX on this admission November 25 and Anasarca secondary to above Acute on chronic abdominal pain secondary to above Recent PE/DVT, on Pradaxa due to GAYLA Henrry metastatic bilateral pulmonary nodules graft hypertension Hyperlipidemia History of diastolic congestive heart failure Diabetes mellitus 40-pack year smoking history Plan: The patient was seen and evaluated Chest x-ray, labs and medications reviewed Transfer to the intensive care unit for hypotension Continue normal saline at 100 mL/h May need pressor support if no improvement Titrate the FiO2 as tolerated Initiate the patient on cefepime Blood cultures and procalcitonin pending Will continue to follow and make further recommendations based on her clinical status Patient is a DNR CODE STATUS I have personally seen and examined the patient, performed the documentation and the assessment and plan as written. Number of minutes spent on the visit: 20.
[2023-11-29 21:09] LABS: Glucose,Whole Blood 177 mg/dL (70-110)
[2023-11-29] MEDS: PIPERACILLIN-TAZOBACTAM 3.375 GM in SODIUM CHLORIDE 0.9% 100 ML IVPB SCH (21:38)
[2023-11-29] MEDS: NOREPINEPHRINE 4 MG in SODIUM CHLORIDE 0.9% 250 ML IV SCH (21:44)
--- NOTE | 2023-11-29 22:36 | P.CONS ---
History of Present Illness - Reason for Consult Consult date: 11/29/23 Sepsis Requesting physician: Mariposa Conklin - Chief Complaint Weakness abdominal pain x few days - History of Present Illness Patient is a 58-year-old female with a past medical history significant for diabetes mellitus hypertension hyperlipidemia atrial flutter and a recent diagnosis of cholangiocarcinoma in this patient presenting to the hospital about 5 days ago for mental status changes and low blood pressure patient has been in the hospital the last 5 days on presentation to the hospital the patient was afebrile and no fever have been recorded subsequently patient has been tachycardic mostly throughout hospital stay and did have mild hypoxemia requiring supplemental oxygen patient did have a white count of 22,000 on admission there is up to 28.2 and the patient was noted to be hypoxic requiring admission to the ICU she has received fluid boluses BUN and creatinine has been mildly elevated also have elevated liver enzymes urine admission was no nsignificant positive UA today is positive with small leuks triglycerides 10 WBC patient was started on cefepime infectious disease was consulted for further management of antibiotic repeat concerning for sepsis patient complaining of feeling weak tired no energy denies any headache or URI symptoms no chest pain shortness of breath or cough has been complaining of abdominal pain mostly dull aching mild to moderate intensity with associated distention but no vomiting and no diarrhea has been reported Review of Systems Positive point and negatives has been mentioned in the HPI, complete review of systems was performed and all other systems are negative Past Medical History Past Medical History: Atrial Flutter, Cancer, Diabetes Mellitus, GERD/Reflux, Hyperlipidemia, Hypertension, Osteoarthritis (OA) Additional Past Medical History / Comment(s): migraines, chronic BACK PAIN. DDD, bulging disks, hx Skin CA. GETS NAUSEA WHEN EATING OFTEN, heart murmer, palpitations, hiatal hernia, constipation, History of Any Multi-Drug Resistant Organisms: None Reported Past Surgical History: Bariatric Surgery, Breast Surgery, Section, Cholecystectomy, Hernia Repair, Orthopedic Surgery, Uterine Ablation Additional Past Surgical History / Comment(s): RT Knee arthroscopy. KAILEY MULT TOES Surgery. Sinus Surgery. Gastric Bypass 2013. kailey Breast biopsy. CERVICAL CONE biopsy. PAIN PROC BACK, kailey eyelid procedure, incisional hernia repair, Past Anesthesia/Blood Transfusion Reactions: Previous Problems w/ Anesthesia, Motion Sickness Additional Past Anesthesia/Blood Transfusion Reaction / Comm: Woke up once during anesthesia. Mom has difficulty coming out of anesthesia and low b/p. Past Psychological History: Anxiety, Bipolar, Depression, Panic Disorder Additional Psychological History / Comment(s): patient states she has been diagnosed with "Bipolar depression" Identity disorder Smoking Status: Former smoker Past Alcohol Use History: Occasional Additional Past Alcohol Use History / Comment(s): Started Smoking at age 16, 1 ppd. Past Drug Use History: None Reported Additional Drug Use History / Comment(s): . - Past Family History Father History Unknown: Yes Family Medical History: Cancer Additional Family Medical History / Comment(s): skin cancer Mother Family Medical History: Deep Vein Thrombosis (DVT) Medications and Allergies Home Medications Medication Instructions Recorded Confirmed Type Atorvastatin [Lipitor] 10 mg PO DAILY 07/19/17 11/24/23 History traZODone HCL 100 mg PO HS PRN 07/26/20 11/24/23 History Multivitamin [Multivitamins Adult 1 tab PO DAILY 02/27/22 11/24/23 History Gummies] Biotin [Biotin Disolve] 10,000 mcg PO DAILY 09/02/22 11/24/23 History Metoprolol Tartrate 12.5 mg PO DAILY 09/02/22 11/24/23 History Calcium Carbonate/Vitamin D3 2 tab PO DAILY 10/06/23 11/24/23 History [Calcium 500 mg Chewable Tablet] Pantoprazole [Protonix] 40 mg PO DAILY PRN 10/06/23 11/24/23 History Ferrous Sulfate [Iron (65 MG 325 mg PO DAILY 10/08/23 11/24/23 History Elemental)] Albuterol Sulfate [Albuterol 2 puff INHALATION RT-Q6H PRN 10/15/23 11/24/23 History Sulfate Hfa] Losartan [Cozaar] 12.5 mg PO DAILY 10/20/23 11/24/23 History Acetaminophen-Codeine 300-30mg 1 tab PO BID PRN 11/16/23 11/24/23 History [Tylenol w/codeine #3] Dapagliflozin Propanediol [Farxiga] 10 mg PO DAILY 11/16/23 11/24/23 History Furosemide [Lasix] 20 mg PO DAILY 11/16/23 11/24/23 History Potassium Chloride ER [K-Dur 10] 10 meq PO DAILY 11/16/23 11/24/23 History glipiZIDE [Glucotrol] 5 mg PO BID 11/16/23 11/24/23 History ARIPiprazole [Abilify] 5 mg PO DAILY #30 tab 11/19/23 11/24/23 Rx Apixaban [Eliquis Starter Pack See Taper PO BID 11/24/23 11/24/23 History (for VTE)] Fluconazole [Diflucan] 150 mg PO Q2D PRN 11/24/23 11/24/23 History HYDROcodone/APAP 5-325MG [Uriah 1 tab PO HS 11/24/23 11/24/23 History 5-325] Nystatin [Nystatin Oral Susp] 500,000 unit PO Q4H 11/24/23 11/24/23 History hydrOXYzine pamoate [Vistaril] 50 mg PO QID PRN 11/24/23 11/24/23 History Allergies Allergy/AdvReac Type Severity Reaction Status Date / Time grass pollen-perennial rye, Allergy ITCHY,WATERY Verified 11/24/23 14:33 standar EYES AND [grass poll-perennial NOSE rye,std] rivaroxaban [From Xarelto] AdvReac See comment Verified 11/24/23 14:33 tape Allergy tears Uncoded 11/24/23 14:33 skin,rash, states "paper tape is ok" Physical Exam Vitals: Vital Signs Temp Pulse Pulse Resp BP BP Pulse Ox 11/29/23 14:58 86/54 11/29/23 13:56 82/44 11/29/23 13:16 68 14 84/42 92 L 11/29/23 12:04 97.7 F 103 H 16 85/55 91 L 11/29/23 08:34 94 11/29/23 08:23 98 11/29/23 06:59 97.5 F L 101 H 16 87/53 93 L 11/29/23 00:19 98 F 95 16 81/51 97 11/28/23 20:00 97.8 F 102 H 15 86/53 97 11/28/23 17:00 99 Intake and Output 11/29/23 11/29/23 11/29/23 06:59 14:59 22:59 Output Total 190 Balance -190 Output: Urine 190 Other: # Voids 3 Weight 83 kg GENERAL DESCRIPTION: Middle-aged female lying in bed, no distress. No tachypnea or accessory muscle of respiration use. HEENT: shows scleral icterus. Oral mucous membrane is dry. No pharyngeal erythema or thrush NECK: Trachea central, no thyromegaly. LUNGS: Unlabored breathing. Decreased breath sound at bases HEART: S1, S2, regular rate and rhythm. No loud murmur ABDOMEN: Soft, did have distention and some tenderness EXTREMITIES: No edema of feet. SKIN: No rash, no masses palpable. NEUROLOGICAL: The patient is awake, alert, oriented x3, mood and affect normal. Results CBC & Chem 7: 11/28/23 04:26 11/28/23 04:26 Labs: Abnormal Lab Results - Last 24 Hours (Table) 11/28/23 11/28/23 11/29/23 Range/Units 17:14 20:18 07:02 POC Glucose (mg/dL) 148 H 149 H 162 H (70-110) mg/dL Urine Appearance (Clear) Urine Protein (Negative) Urine Blood (Negative) Urine Bilirubin (Negative) Ur Leukocyte Esterase (Negative) Urine RBC (0-5) /hpf Urine WBC (0-5) /hpf Urine WBC Clumps (None) /hpf Ur Squamous Epith Cells (0-4) /hpf Amorphous Sediment (None) /hpf Urine Bacteria (None) /hpf Hyaline Casts (0-2) /lpf Urine Mucus (None) /hpf 11/29/23 11/29/23 Range/Units 11:52 12:25 POC Glucose (mg/dL) 201 H (70-110) mg/dL Urine Appearance Turbid H (Clear) Urine Protein 1+ H (Negative) Urine Blood Trace H (Negative) Urine Bilirubin 2+ H (Negative) Ur Leukocyte Esterase Small H (Negative) Urine RBC 7 H (0-5) /hpf Urine WBC 10 H (0-5) /hpf Urine WBC Clumps Few H (None) /hpf Ur Squamous Epith Cells 12 H (0-4) /hpf Amorphous Sediment Moderate H (None) /hpf Urine Bacteria Occasional H (None) /hpf Hyaline Casts 49 H (0-2) /lpf Urine Mucus Occasional H (None) /hpf Assessment and Plan (1) Sepsis Current Visit: Yes Status: Acute Code(s): A41.9 - SEPSIS, UNSPECIFIED ORGANISM SNOMED Code(s): 87898596 Plan: 1patient with service in this patient who did have a hypotension tachycardia elevated white count, meeting criteria for SIRS with a question of sepsis possible abdominal source and this patient did have history of cholangiocarcinoma with a question of possible cholangitis versus other abdominal pathology as the patient did have abdominal distention and some tenderness 2-patient benefit from CT of abdominal pelvis once stable 3-we will switch antibiotic to Zosyn 3.375 g every 8 hours, blood culture has been obtained results will be followed We will follow on clinical condition and cultures to further adjust medication if needed Thank you for this consultation we will follow the patient along with you Dictation was produced using [employer] dictation software. please excuse any grammatical, word or spelling errors. Time with Patient: Greater than 30
--- NOTE | 2023-11-29 23:55 | P.PN ---
Subjective Progress Note Date: 11/29/23 This is a 58-year-old patient, follows Dr. Rincon. Chronic stable medical conditions include GERD, diabetes, hypertension, hyperlipidemia, osteoarthritis, hiatal hernia. Gastrojejunal gastric bypass in 2013. CHF with preserved EF October 11, 2023:, by Dr. Hooks: EGD with rigid dilator 57 [place] to address lower esophageal sphincter and esophageal dysmotility.. 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 Port was placed recently. - oncologist Dr. Calin Atkins. Patient was discharged from the hospital last week following admission for congestive heart failure exacerbation with preserved ejection fraction. Also has some ascites but not felt to be enough for paracentesis. Patient is due to start chemotherapy shortly. Patient recently was admitted with CHF with preserved EF exacerbation. Subsequently was in the hospital from November 15 through November 18 with PE. Dis charged on Eliquis. Just prior to leaving patient had decided to become DNR. Patient now presents feeling increasing short of breath. Tired. Decreased appetite. Not ambulating much. Decreased oral intake. In the ER troponin was 1.1. Patient denies any chest pain. Dr. Smith had spoken to the b[place] cutter Dr. Regis Morrison. Not for any further intervention. Patient denies any cough. Just tired. November 24: Patient was seen this afternoon. Mother at the bedside. Patient more awake today. Tired. Decreased appetite. Discussed. Patient today wants to go back to being a full code. Oncology ordered patient to receive fluorouracil. And leucovorin. Patient initial symptoms felt to be combination of r acute kidney injury and hepatic encephalopathy. Patient remains on lactulose November 25: Sitting up in bed. Mother at the bedside. Following medication changes being done. Dilaudid is being discontinued. Will give Tylenol 3 as needed during daytime. [place] to continue at night. Lipitor Abilify continues to remain off. Patient is on Pradaxa instead of Eliquis. On Diflucan for oral candidiasis. On chemo agents per oncology. Slight improvement in hepatic numbers 11/26. Patient seen and examined. Vital signs this morning the patient had 74, heart rate of 100, blood pressure 103/68. Blood work done this morning showed WBC 25.5, hemoglobin 8.6, platelet count 407, sodium 132, potassium 4, BUN 18, creatinine 1.62. Complaining of weakness. Complaining of shortness of breath on exertion 11/27. Patient seen and examined. Complaining of difficulty in swallowing, s emery her mouth is very dry. Complaining of abdominal pain 11/29/2023 Patient is seen in follow-up today and is lethargic but arousable. Patients blood pressures have been low and now receiving midodrine and remains in the low 80's. Patient appears to have a septic picture and will consult pulmonary and ID and appreciate input and recommendations. Patient is reporting weakness, lightheadedness, with dizziness even sitting in the bed. Patient is significantly weak and may require ICU for closer monitoring. REVIEW OF SYSTEMS: CONSTITUTIONAL: No fever, no malaise,. reports fatigue and dizziness CARDIOVASCULAR: No chest pain, no palpitations, no syncope. PULMONARY: As mentioned above GASTROINTESTINAL: No diarrhea, no nausea, no vomiting. no apetite and continued abdominal pain NEUROLOGICAL: No headaches, reports severe weakness PHYSICAL EXAMINATION: GENERAL: The patient is alert and oriented x3, lethargic, easily arousable, chronically ill looking HEENT: Pupils are round and equally reacting to light. EOMI. No scleral icterus. No conjunctival pallor. Normocephalic, atraumatic. No pharyngeal erythema. No thyromegaly. CARDIOVASCULAR: S1 and S2 present. No murmurs, rubs, or gallops. PULMONARY: Chest is clear to auscultation, no wheezing or crackles. ABDOMEN: Soft, tender, nondistended, normoactive bowel sounds. No palpable organomegaly. MUSCULOSKELETAL: No joint swelling or deformity. EXTREMITIES: No cyanosis, clubbing, or pedal edema. diffusely weak NEUROLOGICAL: Gross neurological examination did not reveal any focal deficits. SKIN: No rashes. Assessment and plan -Acute metabolic encephalopathy/possible hepatic encephalopathy, delirium. From acute kidney injury, and liver dysfunction: Resolved -Possible sepsis with leukocytosis, hypotension and mild tachycardia, possibly due to abdominal source. -Acute non-ST elevation SC, type II from hemodynamic mismatch. Continue medical management - hepatic encephalopathy: Improved Lactulose 20 g twice daily -Acute kidney injury possibly combination of prerenal and ATN. -Hyperkalemia secondary to acute kidney injury. 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 MRI brain negative Given fluorouracil, leucovorin -Started on chemotherapy, November [address] Atkins Palliative chemotherapy -Microcytic anemia to include iron deficiency from underlying malignancy and nutritional component from decreased oral intake. Monitor CBC -Bipolar disorder Abilify-hold. Trazodone. Lamictal -Diabetes mellitus type 2 , continue insulin regimen for now Monitor blood sugar levels, continue sliding scale insulin -GERD Protonix -Moderate protein calorie malnutrition decreased oral intake. Ensure -Hypotension Grady wrap. Midodrine. -COPD in prior smoker Albuterol as needed -Gastrojejunal bypass 2013 Patient does follow with Dr. Agatha Jaeger Plan: Continue current regimen and medications adjusted. Pulmonary general house worker and ID consulted for septic work-up and requiring ICU for close monitoring and hypotension Continue to encourage incentive spirometer PT/oT to eval Procalcitonin and blood cultures obtained and pending, cxr pending Overall prognosis is guarded. The impression and plan of care has been dictated by Mariposa Conklin, Nurse Practitioner as directed. Dr. Shekhar MD I have performed a history and examination and MDM of this patient, discussed the same with the dictator, and agree with the dictator's assessment and plan as written ,documented as a scribe. Based on total visit time, I have performed more than 50% of the visit. Objective - Vital Signs Vital signs: Vital Signs Temp 97.5 F L 11/29/23 06:59 Pulse 94 11/29/23 08:34 Resp 16 11/29/23 06:59 BP 87/53 11/29/23 06:59 Pulse Ox 93 L 11/29/23 06:59 FiO2 Intake & Output 11/28/23 11/29/23 11/29/23 18:59 06:59 18:59 Intake Total 960 Output Total 941 440 Balance 19 -440 Weight 83 kg Intake: Oral 960 Output: Urine 940 440 Straight 250 Stool 1 Other: Voiding Method External Catheter External Catheter # Voids 1 3 - Labs CBC & Chem 7: 11/28/23 04:26 11/28/23 04:26 Labs: Abnormal Lab Results - Last 24 Hours (Table) 11/28/23 11/28/23 11/28/23 Range/Units 12:05 17:14 20:18 POC Glucose (mg/dL) 154 H 148 H 149 H (70-110) mg/dL 11/29/23 Range/Units 07:02 POC Glucose (mg/dL) 162 H (70-110) mg/dL
[2023-11-30 06:20] LABS: Glucose,Whole Blood 216 mg/dL (70-110)
[2023-11-30 06:34] LABS: Anisocytosis Moderate; Basophils % (A) 0 %; Eosinophils % (A) 0 %; HCT 29.3 % (34.0-46.0); HGB 8.9 gm/dL (11.4-16.0); Hypochromasia Marked; Lymphocytes # (A) 0.6 k/uL (1.0-4.8); Lymphocytes % (A) 3 %; MCH 24.2 pg (25.0-35.0); MCHC 30.5 g/dL (31.0-37.0); MCV 79.3 fL (80.0-100.0); Mean Platelet Volume 11.4; Microcytosis Slight; Monocytes # (A) 0.2 k/uL (0-1.0); Monocytes % (A) 1 %; Neutrophils # (A) 15.4 k/uL (1.3-7.7); Neutrophils % (A) 95 %; Platelet Count 243 k/uL (150-450); Poikilocytosis Slight; RDW 21.7 % (11.5-15.5); WBC 16.2 k/uL (3.8-10.6)
[2023-11-30 07:14] LABS: ALT 80 U/L (4-34); AST 190 U/L (14-36); African American GFR (CKD) 27 (>60 ml/min/1.73 sqM); Anion Gap 12 mmol/L; Calcium 7.9 mg/dL (8.4-10.2); Carbon Dioxide 18 mmol/L (22-30); Chloride 109 mmol/L (98-107); Glucose 177 mg/dL (74-99); Magnesium 2.9 mg/dL (1.6-2.3); Non-African American GFR(CKD) 24 (>60 ml/min/1.73 sqM); Potassium 5.4 mmol/L (3.5-5.1); Sodium 139 mmol/L (137-145); Total Bilirubin 4.7 mg/dL (0.2-1.3); Total Protein 4.8 g/dL (6.3-8.2)
[2023-11-30 07:53] LABS: Albumin 2.1 g/dL (3.5-5.0); Alkaline Phosphatase 1193 U/L (38-126)
[2023-11-30] MEDS: SODIUM CHLORIDE 0.9% 1,000 ML IV ONE (09:38)
--- NOTE | 2023-11-30 11:01 | P.PN ---
Subjective Patient is seen for follow-up for acute kidney injury. Transferred to ICU yesterday due to hypotension. Currently on Levophed. Receiving IV fluids. Vital signs are stable. On vasopressor support. General: No acute distress. HEENT: Head exam is unremarkable. On nasal cannula. LUNGS: No audible rhonchi or wheezes. HEART: Rate and Rhythm are regular. ABDOMEN: Nontender. EXTREMITITES: 2+ edema. Objective - Vital Signs Vital signs: Vital Signs Temp 97.7 F 11/30/23 08:45 Pulse 105 H 11/30/23 10:15 Resp 25 H 11/30/23 10:15 BP 90/54 11/30/23 10:15 Pulse Ox 93 L 11/30/23 10:15 FiO2 Intake & Output 11/29/23 11/30/23 11/30/23 18:59 06:59 18:59 Intake Total 1250 1431.884 472.116 Output Total 65 240 85 Balance 1185 1191.884 387.116 Weight 89 kg Intake: IV 200 1200 300 Sodium Chloride 0.9% 1, 200 1200 300 000 ml @ 100 mls/hr IV . Q10H [facility] Rx#:[id number] Intake, IV Titration 1050 231.884 72.116 Amount Cefepime 2 gm In Sodium 50 50 Chloride 0.9% 100 ml @ 25 mls/hr IVPB Q8HR [facility] Rx# :[id number] Norepinephrine 4 mg In 181.884 72.116 Sodium Chloride 0.9% 250 ml @ 0.03 MCG/KG/MIN 9. 487 mls/hr IV .Q24H [facility] Rx#:[id number] Sodium Chloride 0.9% 1, 1000 000 ml @ 999 mls/hr IV . Q1H1M ONE Rx#:[id number] Oral 100 Output: Urine 65 240 85 Other: Voiding Method Indwelling Catheter - Labs CBC & Chem 7: 11/30/23 05:21 11/30/23 05:21 Labs: Abnormal Lab Results - Last 24 Hours (Table) 11/29/23 11/29/23 11/29/23 Range/Units 11:52 12:25 16:23 WBC (3.8-10.6) k/uL RBC (3.80-5.40) m/uL Hgb (11.4-16.0) gm/dL Hct (34.0-46.0) % MCV (80.0-100.0) fL MCH (25.0-35.0) pg MCHC (31.0-37.0) g/dL RDW (11.5-15.5) % Neutrophils # (1.3-7.7) k/uL Lymphocytes # (1.0-4.8) k/uL Potassium (3.5-5.1) mmol/L Chloride (98-107) mmol/L Carbon Dioxide (22-30) mmol/L Creatinine (0.52-1.04) mg/dL Glucose (74-99) mg/dL POC Glucose (mg/dL) 201 H 195 H (70-110) mg/dL Calcium (8.4-10.2) mg/dL Magnesium (1.6-2.3) mg/dL Total Bilirubin (0.2-1.3) mg/dL AST (14-36) U/L ALT (4-34) U/L Alkaline Phosphatase (38-126) U/L C-Reactive Protein (0.00-0.80) mg/dL Total Protein (6.3-8.2) g/dL Albumin (3.5-5.0) g/dL Procalcitonin (0.02-0.50) ng/mL Urine Appearance Turbid H (Clear) Urine Protein 1+ H (Negative) Urine Blood Trace H (Negative) Urine Bilirubin 2+ H (Negative) Ur Leukocyte Esterase Small H (Negative) Urine RBC 7 H (0-5) /hpf Urine WBC 10 H (0-5) /hpf Urine WBC Clumps Few H (None) /hpf Ur Squamous Epith Cells 12 H (0-4) /hpf Amorphous Sediment Moderate H (None) /hpf Urine Bacteria Occasional H (None) /hpf Hyaline Casts 49 H (0-2) /lpf Urine Mucus Occasional H (None) /hpf 11/29/23 11/29/23 11/29/23 Range/Units 16:28 16:34 16:41 WBC (3.8-10.6) k/uL RBC (3.80-5.40) m/uL Hgb (11.4-16.0) gm/dL Hct (34.0-46.0) % MCV (80.0-100.0) fL MCH (25.0-35.0) pg MCHC (31.0-37.0) g/dL RDW (11.5-15.5) % Neutrophils # (1.3-7.7) k/uL Lymphocytes # (1.0-4.8) k/uL Potassium (3.5-5.1) mmol/L Chloride (98-107) mmol/L Carbon Dioxide (22-30) mmol/L Creatinine (0.52-1.04) mg/dL Glucose (74-99) mg/dL POC Glucose (mg/dL) 195 H (70-110) mg/dL Calcium (8.4-10.2) mg/dL Magnesium (1.6-2.3) mg/dL Total Bilirubin (0.2-1.3) mg/dL AST (14-36) U/L ALT (4-34) U/L Alkaline Phosphatase (38-126) U/L C-Reactive Protein 12.70 H (0.00-0.80) mg/dL Total Protein (6.3-8.2) g/dL Albumin (3.5-5.0) g/dL Procalcitonin 4.66 H (0.02-0.50) ng/mL Urine Appearance (Clear) Urine Protein (Negative) Urine Blood (Negative) Urine Bilirubin (Negative) Ur Leukocyte Esterase (Negative) Urine RBC (0-5) /hpf Urine WBC (0-5) /hpf Urine WBC Clumps (None) /hpf Ur Squamous Epith Cells (0-4) /hpf Amorphous Sediment (None) /hpf Urine Bacteria (None) /hpf Hyaline Casts (0-2) /lpf Urine Mucus (None) /hpf 11/29/23 11/30/23 11/30/23 Range/Units 21:07 05:21 05:21 WBC 16.2 H (3.8-10.6) k/uL RBC 3.70 L (3.80-5.40) m/uL Hgb 8.9 L (11.4-16.0) gm/dL Hct 29.3 L (34.0-46.0) % MCV 79.3 L (80.0-100.0) fL MCH 24.2 L (25.0-35.0) pg MCHC 30.5 L (31.0-37.0) g/dL RDW 21.7 H (11.5-15.5) % Neutrophils # 15.4 H (1.3-7.7) k/uL Lymphocytes # 0.6 L (1.0-4.8) k/uL Potassium 5.4 H (3.5-5.1) mmol/L Chloride 109 H (98-107) mmol/L Carbon Dioxide 18 L (22-30) mmol/L Creatinine 2.22 H (0.52-1.04) mg/dL Glucose 177 H (74-99) mg/dL POC Glucose (mg/dL) 177 H (70-110) mg/dL Calcium 7.9 L (8.4-10.2) mg/dL Magnesium 2.9 H (1.6-2.3) mg/dL Total Bilirubin 4.7 H (0.2-1.3) mg/dL AST 190 H (14-36) U/L ALT 80 H (4-34) U/L Alkaline Phosphatase 1193 H (38-126) U/L C-Reactive Protein (0.00-0.80) mg/dL Total Protein 4.8 L (6.3-8.2) g/dL Albumin 2.1 L (3.5-5.0) g/dL Procalcitonin (0.02-0.50) ng/mL Urine Appearance (Clear) Urine Protein (Negative) Urine Blood (Negative) Urine Bilirubin (Negative) Ur Leukocyte Esterase (Negative) Urine RBC (0-5) /hpf Urine WBC (0-5) /hpf Urine WBC Clumps (None) /hpf Ur Squamous Epith Cells (0-4) /hpf Amorphous Sediment (None) /hpf Urine Bacteria (None) /hpf Hyaline Casts (0-2) /lpf Urine Mucus (None) /hpf 11/30/23 Range/Units 06:19 WBC (3.8-10.6) k/uL RBC (3.80-5.40) m/uL Hgb (11.4-16.0) gm/dL Hct (34.0-46.0) % MCV (80.0-100.0) fL MCH (25.0-35.0) pg MCHC (31.0-37.0) g/dL RDW (11.5-15.5) % Neutrophils # (1.3-7.7) k/uL Lymphocytes # (1.0-4.8) k/uL Potassium (3.5-5.1) mmol/L Chloride (98-107) mmol/L Carbon Dioxide (22-30) mmol/L Creatinine (0.52-1.04) mg/dL Glucose (74-99) mg/dL POC Glucose (mg/dL) 216 H (70-110) mg/dL Calcium (8.4-10.2) mg/dL Magnesium (1.6-2.3) mg/dL Total Bilirubin (0.2-1.3) mg/dL AST (14-36) U/L ALT (4-34) U/L Alkaline Phosphatase (38-126) U/L C-Reactive Protein (0.00-0.80) mg/dL Total Protein (6.3-8.2) g/dL Albumin (3.5-5.0) g/dL Procalcitonin (0.02-0.50) ng/mL Urine Appearance (Clear) Urine Protein (Negative) Urine Blood (Negative) Urine Bilirubin (Negative) Ur Leukocyte Esterase (Negative) Urine RBC (0-5) /hpf Urine WBC (0-5) /hpf Urine WBC Clumps (None) /hpf Ur Squamous Epith Cells (0-4) /hpf Amorphous Sediment (None) /hpf Urine Bacteria (None) /hpf Hyaline Casts (0-2) /lpf Urine Mucus (None) /hpf Assessment and Plan Assessment: 1. Acute kidney injury, ATN secondary to hypotension. Renal function worse wi th creatinine 2.22 today. UA is benign. 2. Metastatic cholangiocarcinoma. Oncology following. Has received chemotherapy. 3. History of CHF with preserved ejection fraction. 4. Volume overload. 5. Hyperkalemia associated with acute kidney injury and metabolic acidosis. 6. History of bipolar disorder 7. Shock maintained on Levophed. 8. Metabolic acidosis secondary to acute kidney injury and IV fluids. Plan: Currently receiving fluid bolus. Discontinue further bolus and decrease rate of maintenance fluids. Wean Levophed. Lasix 40 mg IV once today. Cortisol level 16.4 (not low). Check uric acid level. 2 g sodium bicarb IV push now. Add oral bicarb. Continue to monitor renal function and urine output.
--- NOTE | 2023-11-30 12:40 | P.PN ---
Subjective Progress Note Date: 11/30/23 Principal diagnosis: cholangiocarcinoma S/p inpt chemo, FOLFOX. Pt was transferred to ICU for hypotension and has been started on levophed. Sitting in bedside chair at todays visit. Reporting persisting weakness. Abd pain improved, having intermittent nausea without vomiting. Bilirubin 4.7, transaminits. Creatinine 2.22, GFR 24. Hgb 8.9, plts 243,000, WBC 16.2 Objective - Vital Signs Vital signs: Vital Signs Temp 97.7 F 11/30/23 08:45 Pulse 105 H 11/30/23 10:15 Resp 25 H 11/30/23 10:15 BP 90/54 11/30/23 10:15 Pulse Ox 93 L 11/30/23 10:15 FiO2 Intake & Output 11/29/23 11/30/23 11/30/23 18:59 06:59 18:59 Intake Total 1250 1431.884 472.116 Output Total 65 240 85 Balance 1185 1191.884 387.116 Weight 89 kg Intake: IV 200 1200 300 Sodium Chloride 0.9% 1, 200 1200 300 000 ml @ 100 mls/hr IV . Q10H [facility] Rx#:[id number] Intake, IV Titration 1050 231.884 72.116 Amount Cefepime 2 gm In Sodium 50 50 Chloride 0.9% 100 ml @ 25 mls/hr IVPB Q8HR [facility] Rx# :[id number] Norepinephrine 4 mg In 181.884 72.116 Sodium Chloride 0.9% 250 ml @ 0.03 MCG/KG/MIN 9. 487 mls/hr IV .Q24H [facility] Rx#:[id number] Sodium Chloride 0.9% 1, 1000 000 ml @ 999 mls/hr IV . Q1H1M ONE Rx#:[id number] Oral 100 Output: Urine 65 240 85 Other: Voiding Method Indwelling Catheter - Constitutional General appearance: Present: no acute distress - EENT Eyes: Present: scleral icterus ENT: Present: hearing grossly normal - Respiratory Details: breathing unlabored - Cardiovascular Rhythm: regular - Peripheral edema leg Peripheral Edema: bilateral: 3+ - Gastrointestinal General gastrointestinal: Present: distended. Absent: tenderness - Integumentary Integumentary: Absent: cyanotic - Musculoskeletal Musculoskeletal: Present: generalized weakness - Psychiatric Psychiatric: Present: A&O x's 3 - Labs CBC & Chem 7: 11/30/23 05:21 11/30/23 05:21 Labs: Abnormal Lab Results - Last 24 Hours (Table) 11/29/23 11/29/23 11/29/23 Range/Units 12:25 16:23 16:28 WBC (3.8-10.6) k/uL RBC (3.80-5.40) m/uL Hgb (11.4-16.0) gm/dL Hct (34.0-46.0) % MCV (80.0-100.0) fL MCH (25.0-35.0) pg MCHC (31.0-37.0) g/dL RDW (11.5-15.5) % Neutrophils # (1.3-7.7) k/uL Lymphocytes # (1.0-4.8) k/uL Potassium (3.5-5.1) mmol/L Chloride (98-107) mmol/L Carbon Dioxide (22-30) mmol/L Creatinine (0.52-1.04) mg/dL Glucose (74-99) mg/dL POC Glucose (mg/dL) 195 H (70-110) mg/dL Calcium (8.4-10.2) mg/dL Magnesium (1.6-2.3) mg/dL Total Bilirubin (0.2-1.3) mg/dL AST (14-36) U/L ALT (4-34) U/L Alkaline Phosphatase (38-126) U/L C-Reactive Protein 12.70 H (0.00-0.80) mg/dL Total Protein (6.3-8.2) g/dL Albumin (3.5-5.0) g/dL Procalcitonin (0.02-0.50) ng/mL Urine Appearance Turbid H (Clear) Urine Protein 1+ H (Negative) Urine Blood Trace H (Negative) Urine Bilirubin 2+ H (Negative) Ur Leukocyte Esterase Small H (Negative) Urine RBC 7 H (0-5) /hpf Urine WBC 10 H (0-5) /hpf Urine WBC Clumps Few H (None) /hpf Ur Squamous Epith Cells 12 H (0-4) /hpf Amorphous Sediment Moderate H (None) /hpf Urine Bacteria Occasional H (None) /hpf Hyaline Casts 49 H (0-2) /lpf Urine Mucus Occasional H (None) /hpf 11/29/23 11/29/23 11/29/23 Range/Units 16:34 16:41 21:07 WBC (3.8-10.6) k/uL RBC (3.80-5.40) m/uL Hgb (11.4-16.0) gm/dL Hct (34.0-46.0) % MCV (80.0-100.0) fL MCH (25.0-35.0) pg MCHC (31.0-37.0) g/dL RDW (11.5-15.5) % Neutrophils # (1.3-7.7) k/uL Lymphocytes # (1.0-4.8) k/uL Potassium (3.5-5.1) mmol/L Chloride (98-107) mmol/L Carbon Dioxide (22-30) mmol/L Creatinine (0.52-1.04) mg/dL Glucose (74-99) mg/dL POC Glucose (mg/dL) 195 H 177 H (70-110) mg/dL Calcium (8.4-10.2) mg/dL Magnesium (1.6-2.3) mg/dL Total Bilirubin (0.2-1.3) mg/dL AST (14-36) U/L ALT (4-34) U/L Alkaline Phosphatase (38-126) U/L C-Reactive Protein (0.00-0.80) mg/dL Total Protein (6.3-8.2) g/dL Albumin (3.5-5.0) g/dL Procalcitonin 4.66 H (0.02-0.50) ng/mL Urine Appearance (Clear) Urine Protein (Negative) Urine Blood (Negative) Urine Bilirubin (Negative) Ur Leukocyte Esterase (Negative) Urine RBC (0-5) /hpf Urine WBC (0-5) /hpf Urine WBC Clumps (None) /hpf Ur Squamous Epith Cells (0-4) /hpf Amorphous Sediment (None) /hpf Urine Bacteria (None) /hpf Hyaline Casts (0-2) /lpf Urine Mucus (None) /hpf 11/30/23 11/30/23 11/30/23 Range/Units 05:21 05:21 06:19 WBC 16.2 H (3.8-10.6) k/uL RBC 3.70 L (3.80-5.40) m/uL Hgb 8.9 L (11.4-16.0) gm/dL Hct 29.3 L (34.0-46.0) % MCV 79.3 L (80.0-100.0) fL MCH 24.2 L (25.0-35.0) pg MCHC 30.5 L (31.0-37.0) g/dL RDW 21.7 H (11.5-15.5) % Neutrophils # 15.4 H (1.3-7.7) k/uL Lymphocytes # 0.6 L (1.0-4.8) k/uL Potassium 5.4 H (3.5-5.1) mmol/L Chloride 109 H (98-107) mmol/L Carbon Dioxide 18 L (22-30) mmol/L Creatinine 2.22 H (0.52-1.04) mg/dL Glucose 177 H (74-99) mg/dL POC Glucose (mg/dL) 216 H (70-110) mg/dL Calcium 7.9 L (8.4-10.2) mg/dL Magnesium 2.9 H (1.6-2.3) mg/dL Total Bilirubin 4.7 H (0.2-1.3) mg/dL AST 190 H (14-36) U/L ALT 80 H (4-34) U/L Alkaline Phosphatase 1193 H (38-126) U/L C-Reactive Protein (0.00-0.80) mg/dL Total Protein 4.8 L (6.3-8.2) g/dL Albumin 2.1 L (3.5-5.0) g/dL Procalcitonin (0.02-0.50) ng/mL Urine Appearance (Clear) Urine Protein (Negative) Urine Blood (Negative) Urine Bilirubin (Negative) Ur Leukocyte Esterase (Negative) Urine RBC (0-5) /hpf Urine WBC (0-5) /hpf Urine WBC Clumps (None) /hpf Ur Squamous Epith Cells (0-4) /hpf Amorphous Sediment (None) /hpf Urine Bacteria (None) /hpf Hyaline Casts (0-2) /lpf Urine Mucus (None) /hpf Assessment and Plan (1) Cholangiocarcinoma Current Visit: Yes Status: Acute Priority: High Code(s): C22.1 - INTRAHEPATIC BILE DUCT CARCINOMA SNOMED Code(s): 405404463 (2) Dehydration Current Visit: Yes Status: Acute Code(s): E86.0 - DEHYDRATION SNOMED Code(s): 57264127 (3) NSTEMI (non-ST elevated myocardial infarction) Current Visit: Yes Status: Acute Priority: High Code(s): I21.4 - NON-ST ELEVATION (NSTEMI) MYOCARDIAL INFARCTION SNOMED Code(s): 07093467 (4) Renal insufficiency Current Visit: Yes Status: Acute Priority: High Code(s): N28.9 - DISORDER OF KIDNEY AND URETER, UNSPECIFIED SNOMED Code(s): 330603827 (5) Abdominal pain Current Visit: Yes Status: Acute Priority: High Code(s): R10.9 - UNSPECIFIED ABDOMINAL PAIN SNOMED Code(s): 36418543 (6) Transaminitis Current Visit: Yes Status: Acute Priority: High Code(s): R74.01 - ELEVATION OF LEVELS OF LIVER TRANSAMINASE LEVELS SNOMED Code(s): 553524803 Plan: Metastatic cholangiocarcinoma -Diagnosis and plan of care as dictated in consult -Plan was to start the first cycle of palliative chemotherapy with cisplatin/Gemzar/Imfinzi on 11/26/2023, however treatment has had multiple delays due to 3 admissions in the past month -She has had progressive weakness and worsening liver function concerning for disease progression of cholangiocarcinoma -She was started on cycle 1, day 1 of FOLFOX on the evening of 11/26/2023, completed on 11/27 -Clinically, she is having persisting fatigue and weakness, with intermittent abdominal pain and nausea, but abd pain has improved -Zofran 4 mg IV every 8 hours is available for nausea Iron deficiency anemia -Was diagnosed in September 2023 when she was diagnosed with cholangiocarcinoma -Received 4 rounds of IV iron inpatient at that time -Repeat iron studies obtained noted iron saturation of 21.92% with ferritin of 1944 -Given the iron saturation above 20%, we will hold on additional IV iron at this time GAYLA -Initially improved, today worsening kidney function noted. Creatinine 2.24, GFR 24 -Diuretics and antihypertensives were held along with midodrine 3 times daily started -I was concerned about hepatorenal syndrome given her worsening liver function secondary to progressive cholangiocarcinoma -Due to worsening BLE edema and anasarca, IV fluids have been held, and lasix started. -Due to persisting hypotension, c/o dizziness. Will hold lasix. 500cc albumin infusion given and octreotide TID started -Pt has since been transferred to ICU and is currently on Levophed, BP maintaining in 80/90s systolically -Continue to follow nephrology recommendations, appreciate their assistance Mucositis: -Oral hygiene daily -Salt and soda rinses and Kools soln ordered Recent PE/DVT -Due to GAYLA, will start Pradaxa 75mg BID. -Continue to monitor kidney function. Will plan to start Pradaxa 150mg BID once kidney function acutely recovered
[2023-11-30 13:00] LABS: Glucose,Whole Blood 210 mg/dL (70-110)
[2023-11-30] MEDS: SODIUM BICARBONATE TAB 650 MG TAB PO SCH (13:24)
[2023-11-30] MEDS: SODIUM BICARB 8.4% 50 ML SYR (1 MEQ/ML) IV STA (13:24)
--- NOTE | 2023-11-30 13:27 | US ---
EXAMINATION TYPE: US kidneys/renal and bladder DATE OF EXAM: 11/30/2023 Exam done portable in ICU COMPARISON: CT 2023, US 2011 CLINICAL INDICATION: Female, 58 years old with history of francesca; EXAM MEASUREMENTS: Right Kidney: 11.0 x 4.8 x 4.9 cm Left Kidney: 12.1 x 6.1 x 5.0 cm Right Kidney: no hydronephrosis or masses seen Left Kidney: no hydronephrosis or masses seen, limited visualization due to rib shadowing and overlyi ng bowel gas Bladder: not seen, patient has ibarra catheter Fluid seen in RUQ and pelvis Multiple liver lesions seen There is no evidence for hydronephrosis at this point in time. No nephrolithiasis is seen. No agustina s are identified. The urinary bladder is anechoic. Bilateral ureteral jets are seen. IMPRESSION: 1. Multiple hepatic lesions suspicious for metastatic disease. 2. Ascites.
--- NOTE | 2023-11-30 13:31 | P.PN ---
Subjective Progress Note Date: 11/30/23 Principal diagnosis: Hypotension secondary to dehydration with sepsis, and possible septic shock This is a 58-year-old female patient with a known history of chronic obstructive pulmonary disease, chronic tobacco dependence, atrial flutter, diabetes mellitus type 2 hypertension, hyperlipidemia bipolar disorder. She also has a recent diagnosis of cholangiocarcinoma with metastasis. She was to be initiated on cisplatin/Gemzar/Imfinzi however the patient has had recent multiple admissions delaying her treatment. She was readmitted here again on 11/24/2023 with shortness of breath and right sided abdominal pain. She was seen and evaluated by medical oncology who initiated the patient on FOLFOX. Today she had developed hypotension with mean arterial pressures in the 50s. She was subsequently transferred to the intensive care unit we are consulted for the same. She is seen in the ICU awake and alert in no acute distress. She is maintaining O2 saturations in the 90s on 3 L/min per nasal cannula. She is weak. She is afebrile. Chest x-ray is showing improvement in the pulmonary venous congestion. Blood cultures and procalcitonin level pending. Urinalysis revealing turbid urine with high WBCs and occasional bacteria. Culture pending. White count 28.2. Hemoglobin 9.9. Platelets 375. Sodium 137. Potassium 4.1. Bicarb 21. BUN 97. Creatinine 1.68. Glucose 157. AST 242. ALT 78. Alk phos 1164. On normal saline at 100 mL/h. Patient was today on 11/30/2023, remains hypotensive requiring norepinephrine at 0.1 mcg/kg/min, her IV fluid is 100 cc/h, patient received few fluid boluses, and does not seem to be making significant improvement. Hence more fluids will be given and will hold diuretics for now. She is on 3 L nasal cannula, saturating at 98%, blood pressure during my evaluation was 89/56 with mean arterial pressure of 69 temperature is 97.3. Patient is noted to have worsening leukocytosis with WBC of 16.2 hemoglobin 8.9. Electrolytes are normal bicarb is 18 creatinine is 2.22 slightly worse today compared to yesterday. Clinically the patient seems to be dehydrated and definitely needs more fluid boluses in the meantime we will continue her norepinephrine. Chest x-ray shows no evidence of pneumonia, and no evidence of pulmonary edema. Procalcitonin level is 4.66, and her serum cortisol level is normal. Urine output remains extremely poor and marginal, if no improvement with fluid boluses, patient could be considered for possible trial of diuretics although hoping to avoid diuretics because of her borderline blood pressure and relative hypotension requiring norepinephrine. Objective - Vital Signs Vital signs: Vital Signs Temp 97.3 F L 11/30/23 13:00 Pulse 86 11/30/23 13:00 Resp 17 11/30/23 13:00 BP 89/56 11/30/23 13:00 Pulse Ox 98 11/30/23 13:00 FiO2 Intake & Output 11/29/23 11/30/23 11/30/23 18:59 06:59 18:59 Intake Total 1250 1026.946 1301.116 Output Total 65 240 145 Balance 1185 4317.578 4794.116 Weight 89 kg Intake: IV 200 1200 1600 Sodium Chloride 0.9% 1, 200 1200 600 000 ml @ 100 mls/hr IV . Q10H [facility] Rx#:[id number] Sodium Chloride 0.9% 1, 1000 000 ml @ 999 mls/hr IV . Q1H1M ONE Rx#:[id number] Intake, IV Titration 1050 231.884 172.116 Amount Cefepime 2 gm In Sodium 50 50 Chloride 0.9% 100 ml @ 25 mls/hr IVPB Q8HR [facility] Rx# :[id number] Norepinephrine 4 mg In 181.884 72.116 Sodium Chloride 0.9% 250 ml @ 0.03 MCG/KG/MIN 9. 487 mls/hr IV .Q24H [facility] Rx#:[id number] Piperacillin-Tazobactam 3 100 .375 gm In Sodium Chloride 0.9% 100 ml @ 25 mls/hr IVPB Q8H [facility] Rx#: [id number] Sodium Chloride 0.9% 1, 1000 000 ml @ 999 mls/hr IV . Q1H1M ONE Rx#:[id number] Oral 100 Output: Urine 65 240 145 Other: Voiding Method Indwelling Catheter - Exam GENERAL EXAM: Alert, weak, 58-year-old female, on 3 L nasal cannula, O2 saturation 98%. HEAD: Normocephalic. EYES: Normal reaction of pupils, equal size. NOSE: Clear with pink turbinates. THROAT: No erythema or exudates. NECK: No masses, no JVD. CHEST: No chest wall deformity. LUNGS: Equal air entry no crackles, rhonchi or wheezes CVS: S1 and S2 normal with no audible murmur, regular rhythm. ABDOMEN: No hepatosplenomegaly, normal bowel sounds, no tenderness in the right lower quadrant, no rebound no guarding SKIN: No rashes patient has mostly dry skin and poor turgor. CENTRAL NERVOUS SYSTEM: Alert and oriented x 3 no gross focal neurologic deficit EXTREMITIES: No clubbing, no edema, no cyanosis - Labs CBC & Chem 7: 11/30/23 05:21 11/30/23 05:21 Labs: Abnormal Lab Results - Last 24 Hours (Table) 11/29/23 11/29/23 11/29/23 Range/Units 16:23 16:28 16:34 WBC (3.8-10.6) k/uL RBC (3.80-5.40) m/uL Hgb (11.4-16.0) gm/dL Hct (34.0-46.0) % MCV (80.0-100.0) fL MCH (25.0-35.0) pg MCHC (31.0-37.0) g/dL RDW (11.5-15.5) % Neutrophils # (1.3-7.7) k/uL Lymphocytes # (1.0-4.8) k/uL Potassium (3.5-5.1) mmol/L Chloride (98-107) mmol/L Carbon Dioxide (22-30) mmol/L Creatinine (0.52-1.04) mg/dL Glucose (74-99) mg/dL POC Glucose (mg/dL) 195 H (70-110) mg/dL Calcium (8.4-10.2) mg/dL Magnesium (1.6-2.3) mg/dL Total Bilirubin (0.2-1.3) mg/dL AST (14-36) U/L ALT (4-34) U/L Alkaline Phosphatase (38-126) U/L C-Reactive Protein 12.70 H (0.00-0.80) mg/dL Total Protein (6.3-8.2) g/dL Albumin (3.5-5.0) g/dL Procalcitonin 4.66 H (0.02-0.50) ng/mL 11/29/23 11/29/23 11/30/23 Range/Units 16:41 21:07 05:21 WBC (3.8-10.6) k/uL RBC (3.80-5.40) m/uL Hgb (11.4-16.0) gm/dL Hct (34.0-46.0) % MCV (80.0-100.0) fL MCH (25.0-35.0) pg MCHC (31.0-37.0) g/dL RDW (11.5-15.5) % Neutrophils # (1.3-7.7) k/uL Lymphocytes # (1.0-4.8) k/uL Potassium 5.4 H (3.5-5.1) mmol/L Chloride 109 H (98-107) mmol/L Carbon Dioxide 18 L (22-30) mmol/L Creatinine 2.22 H (0.52-1.04) mg/dL Glucose 177 H (74-99) mg/dL POC Glucose (mg/dL) 195 H 177 H (70-110) mg/dL Calcium 7.9 L (8.4-10.2) mg/dL Magnesium 2.9 H (1.6-2.3) mg/dL Total Bilirubin 4.7 H (0.2-1.3) mg/dL AST 190 H (14-36) U/L ALT 80 H (4-34) U/L Alkaline Phosphatase 1193 H (38-126) U/L C-Reactive Protein (0.00-0.80) mg/dL Total Protein 4.8 L (6.3-8.2) g/dL Albumin 2.1 L (3.5-5.0) g/dL Procalcitonin (0.02-0.50) ng/mL 11/30/23 11/30/23 11/30/23 Range/Units 05:21 06:19 12:59 WBC 16.2 H (3.8-10.6) k/uL RBC 3.70 L (3.80-5.40) m/uL Hgb 8.9 L (11.4-16.0) gm/dL Hct 29.3 L (34.0-46.0) % MCV 79.3 L (80.0-100.0) fL MCH 24.2 L (25.0-35.0) pg MCHC 30.5 L (31.0-37.0) g/dL RDW 21.7 H (11.5-15.5) % Neutrophils # 15.4 H (1.3-7.7) k/uL Lymphocytes # 0.6 L (1.0-4.8) k/uL Potassium (3.5-5.1) mmol/L Chloride (98-107) mmol/L Carbon Dioxide (22-30) mmol/L Creatinine (0.52-1.04) mg/dL Glucose (74-99) mg/dL POC Glucose (mg/dL) 216 H 210 H (70-110) mg/dL Calcium (8.4-10.2) mg/dL Magnesium (1.6-2.3) mg/dL Total Bilirubin (0.2-1.3) mg/dL AST (14-36) U/L ALT (4-34) U/L Alkaline Phosphatase (38-126) U/L C-Reactive Protein (0.00-0.80) mg/dL Total Protein (6.3-8.2) g/dL Albumin (3.5-5.0) g/dL Procalcitonin (0.02-0.50) ng/mL Assessment and Plan Assessment: Impression: Hypotension secondary to dehydration and possible underlying infection, suspect urinary tract infection, suspect sepsis and possibly septic shock. Patient has been requiring norepinephrine in spite of fluid boluses. Leukocytosis secondary to above Microcytic anemia Acute kidney injury, secondary to hypotension, sepsis, dehydration, and again possible septic shock. Transaminitis Recent diagnosis of metastatic cholangiocarcinoma unable to be initiated on cisplatin/Gemzar/Imfinzi due to frequent readmissions. Received FOLFOX on this admission November 25 and Anasarca secondary to above Acute on chronic abdominal pain secondary to above Recent PE/DVT, on Pradaxa due to GAYLA Henrry metastatic bilateral pulmonary nodules graft hypertension Hyperlipidemia History of diastolic congestive heart failure Diabetes mellitus 40-pack year smoking history Recommendation: Continue to monitor the patient in the ICU Continue antibiotics/Zosyn Continue IV fluids and continue to monitor I's and O's Hemodynamic support and titrate norepinephrine/accordingly If no improvement noted with fluid boluses, consider trial of diuretics Titrate FiO2 accordingly Procalcitonin was noted to be quite elevated cultures are pending Patient remains critically ill. Will continue to monitor in the ICU Critical care time is over 30 minutes Time with Patient: Greater than 30
--- NOTE | 2023-11-30 14:45 | P.PN ---
Subjective Progress Note Date: 11/30/23 Principal diagnosis: Reason for follow-up is sepsis Patient is a 58-year-old female with a past medical history significant for diabetes mellitus hypertension hyperlipidemia atrial flutter and a recent diagnosis of cholangiocarcinoma in this patient presenting to the [facility] with mental status changes patient was noticed to have a hypotension and significant elevated white count concerning for sepsis for the patient was transferred to the ICU infectious disease was consulted. On today's evaluation that is 11/30/2023, patient has been afebrile, patient is breathing comfortably and is currently on 3 L current oxygen, patient denies having any significant cough no chest pain shortness of breath, patient did have some nausea abdominal pain and distention no vomiting has been reported. Patient white count is down to 16.2, creatinine is 2.22 procalcitonin is 4.66 Objective - Vital Signs Vital signs: Vital Signs Temp 97.3 F L 11/30/23 13:00 Pulse 86 11/30/23 13:00 Resp 17 11/30/23 13:00 BP 89/56 11/30/23 13:00 Pulse Ox 98 11/30/23 13:00 FiO2 Intake & Output 11/29/23 11/30/23 11/30/23 18:59 06:59 18:59 Intake Total 1250 3652.607 2450.116 Output Total 65 240 145 Balance 1185 9438.088 5638.116 Weight 89 kg 89 kg Intake: IV 200 1200 1600 Sodium Chloride 0.9% 1, 200 1200 600 000 ml @ 100 mls/hr IV . Q10H [facility] Rx#:[id number] Sodium Chloride 0.9% 1, 1000 000 ml @ 999 mls/hr IV . Q1H1M ONE Rx#:[id number] Intake, IV Titration 1050 231.884 172.116 Amount Cefepime 2 gm In Sodium 50 50 Chloride 0.9% 100 ml @ 25 mls/hr IVPB Q8HR [facility] Rx# :[id number] Norepinephrine 4 mg In 181.884 72.116 Sodium Chloride 0.9% 250 ml @ 0.03 MCG/KG/MIN 9. 487 mls/hr IV .Q24H [facility] Rx#:[id number] Piperacillin-Tazobactam 3 100 .375 gm In Sodium Chloride 0.9% 100 ml @ 25 mls/hr IVPB Q8H [facility] Rx#: [id number] Sodium Chloride 0.9% 1, 1000 000 ml @ 999 mls/hr IV . Q1H1M ONE Rx#:[id number] Oral 100 Output: Urine 65 240 145 Other: Voiding Method Indwelling Catheter - Exam GENERAL DESCRIPTION: Middle-age female lying in bed in no distress RESPIRATORY SYSTEM: Unlabored breathing , decreased breath sounds at bases HEART: S1 S2 regular rate and rhythm , ABDOMEN: Soft , mild distention and tenderness EXTREMITIES: No edema feet - Labs CBC & Chem 7: 11/30/23 05:21 11/30/23 05:21 Labs: Abnormal Lab Results - Last 24 Hours (Table) 11/29/23 11/29/23 11/29/23 Range/Units 16:23 16:28 16:34 WBC (3.8-10.6) k/uL RBC (3.80-5.40) m/uL Hgb (11.4-16.0) gm/dL Hct (34.0-46.0) % MCV (80.0-100.0) fL MCH (25.0-35.0) pg MCHC (31.0-37.0) g/dL RDW (11.5-15.5) % Neutrophils # (1.3-7.7) k/uL Lymphocytes # (1.0-4.8) k/uL Potassium (3.5-5.1) mmol/L Chloride (98-107) mmol/L Carbon Dioxide (22-30) mmol/L Creatinine (0.52-1.04) mg/dL Glucose (74-99) mg/dL POC Glucose (mg/dL) 195 H (70-110) mg/dL Calcium (8.4-10.2) mg/dL Magnesium (1.6-2.3) mg/dL Total Bilirubin (0.2-1.3) mg/dL AST (14-36) U/L ALT (4-34) U/L Alkaline Phosphatase (38-126) U/L C-Reactive Protein 12.70 H (0.00-0.80) mg/dL Total Protein (6.3-8.2) g/dL Albumin (3.5-5.0) g/dL Procalcitonin 4.66 H (0.02-0.50) ng/mL 11/29/23 11/29/23 11/30/23 Range/Units 16:41 21:07 05:21 WBC (3.8-10.6) k/uL RBC (3.80-5.40) m/uL Hgb (11.4-16.0) gm/dL Hct (34.0-46.0) % MCV (80.0-100.0) fL MCH (25.0-35.0) pg MCHC (31.0-37.0) g/dL RDW (11.5-15.5) % Neutrophils # (1.3-7.7) k/uL Lymphocytes # (1.0-4.8) k/uL Potassium 5.4 H (3.5-5.1) mmol/L Chloride 109 H (98-107) mmol/L Carbon Dioxide 18 L (22-30) mmol/L Creatinine 2.22 H (0.52-1.04) mg/dL Glucose 177 H (74-99) mg/dL POC Glucose (mg/dL) 195 H 177 H (70-110) mg/dL Calcium 7.9 L (8.4-10.2) mg/dL Magnesium 2.9 H (1.6-2.3) mg/dL Total Bilirubin 4.7 H (0.2-1.3) mg/dL AST 190 H (14-36) U/L ALT 80 H (4-34) U/L Alkaline Phosphatase 1193 H (38-126) U/L C-Reactive Protein (0.00-0.80) mg/dL Total Protein 4.8 L (6.3-8.2) g/dL Albumin 2.1 L (3.5-5.0) g/dL Procalcitonin (0.02-0.50) ng/mL 11/30/23 11/30/23 11/30/23 Range/Units 05:21 06:19 12:59 WBC 16.2 H (3.8-10.6) k/uL RBC 3.70 L (3.80-5.40) m/uL Hgb 8.9 L (11.4-16.0) gm/dL Hct 29.3 L (34.0-46.0) % MCV 79.3 L (80.0-100.0) fL MCH 24.2 L (25.0-35.0) pg MCHC 30.5 L (31.0-37.0) g/dL RDW 21.7 H (11.5-15.5) % Neutrophils # 15.4 H (1.3-7.7) k/uL Lymphocytes # 0.6 L (1.0-4.8) k/uL Potassium (3.5-5.1) mmol/L Chloride (98-107) mmol/L Carbon Dioxide (22-30) mmol/L Creatinine (0.52-1.04) mg/dL Glucose (74-99) mg/dL POC Glucose (mg/dL) 216 H 210 H (70-110) mg/dL Calcium (8.4-10.2) mg/dL Magnesium (1.6-2.3) mg/dL Total Bilirubin (0.2-1.3) mg/dL AST (14-36) U/L ALT (4-34) U/L Alkaline Phosphatase (38-126) U/L C-Reactive Protein (0.00-0.80) mg/dL Total Protein (6.3-8.2) g/dL Albumin (3.5-5.0) g/dL Procalcitonin (0.02-0.50) ng/mL Assessment and Plan (1) Sepsis Current Visit: Yes Status: Acute Code(s): A41.9 - SEPSIS, UNSPECIFIED ORG ANISM SNOMED Code(s): 04485847 Plan: 1patient with service in this patient who did have a hypotension tachycardia elevated white count, meeting criteria for SIRS with a question of sepsis possible abdominal source and this patient did have history of cholangiocarcinoma with a question of possible cholangitis versus other abdominal pathology as the patient did have abdominal distention and some tenderness 2-we will order CT of abdominal pelvis with oral contrast to rule out intra- abdominal pathology 3-patient white count is trending down we will continue with Zosyn 3.375 g every 8 hours while waiting for the workup to be completed Dictation was produced using [employer] dictation software. please excuse any grammatical, word or spelling errors. Time with Patient: Less than 30
[2023-11-30 16:34] LABS: Glucose,Whole Blood 226 mg/dL (70-110)
[2023-11-30] MEDS: FUROSEMIDE 10 MG/ML 10 ML VIAL IV STA (17:18)
[2023-11-30 17:39] LABS: African American GFR (CKD) 27 (>60 ml/min/1.73 sqM); Anion Gap 13 mmol/L; Calcium 7.9 mg/dL (8.4-10.2); Carbon Dioxide 19 mmol/L (22-30); Chloride 107 mmol/L (98-107); Glucose 185 mg/dL (74-99); Non-African American GFR(CKD) 23 (>60 ml/min/1.73 sqM); Potassium 4.9 mmol/L (3.5-5.1); Sodium 139 mmol/L (137-145)
[2023-11-30 18:08] LABS: Blood Urea Nitrogen 130 mg/dL (7-17)
[2023-11-30 18:25] LABS: Blood Urea Nitrogen >120 mg/dL (7-17)
[2023-11-30 21:03] LABS: Glucose,Whole Blood 207 mg/dL (70-110)
[2023-11-30] MEDS: IOPAMIDOL CONTRAST (ORAL USE) VIAL PO PRN (22:02)
[2023-12-01 00:35] LABS: African American GFR (CKD) 25 (>60 ml/min/1.73 sqM); Anion Gap 16 mmol/L; Calcium 8.1 mg/dL (8.4-10.2); Carbon Dioxide 19 mmol/L (22-30); Chloride 103 mmol/L (98-107); Glucose 170 mg/dL (74-99); Magnesium 2.9 mg/dL (1.6-2.3); Non-African American GFR(CKD) 22 (>60 ml/min/1.73 sqM); Potassium 4.8 mmol/L (3.5-5.1); Sodium 138 mmol/L (137-145)
[2023-12-01 00:44] LABS: Blood Urea Nitrogen 130 mg/dL (7-17)
[2023-12-01] MEDS: RASBURICASE 6 MG in SODIUM CHLORIDE 0.9% 46 ML IV ONE ×2 (02:37→20:44)
[2023-12-01 06:25] LABS: Anisocytosis Moderate; Basophils % (A) 0 %; Eosinophils % (A) 0 %; HCT 24.9 % (34.0-46.0); Hypochromasia Marked; Lymphocytes # (A) 0.7 k/uL (1.0-4.8); Lymphocytes % (A) 5 %; MCH 23.7 pg (25.0-35.0); MCHC 29.6 g/dL (31.0-37.0); Microcytosis Slight; Monocytes # (A) 0.1 k/uL (0-1.0); Monocytes % (A) 1 %; Neutrophils # (A) 12.4 k/uL (1.3-7.7); Neutrophils % (A) 93 %; Platelet Count 206 k/uL (150-450); RBC 3.11 m/uL (3.80-5.40); RDW 21.5 % (11.5-15.5); WBC 13.3 k/uL (3.8-10.6)
[2023-12-01 06:33] LABS: Glucose,Whole Blood 230 mg/dL (70-110)
[2023-12-01] MEDS: ALPRAZolam 0.25 MG TAB PO STA (06:35)
[2023-12-01 06:46] LABS: HGB 7.4 gm/dL (11.4-16.0)
[2023-12-01 06:55] LABS: ALT 77 U/L (4-34); AST 152 U/L (14-36); African American GFR (CKD) 27 (>60 ml/min/1.73 sqM); Albumin 2.3 g/dL (3.5-5.0); Alkaline Phosphatase 1022 U/L (38-126); Anion Gap 8 mmol/L; Calcium 7.9 mg/dL (8.4-10.2); Carbon Dioxide 22 mmol/L (22-30); Chloride 109 mmol/L (98-107); Glucose 191 mg/dL (74-99); Non-African American GFR(CKD) 23 (>60 ml/min/1.73 sqM); Phosphorus 7.2 mg/dL (2.5-4.5); Potassium 4.9 mmol/L (3.5-5.1); Sodium 139 mmol/L (137-145); Total Protein 5.2 g/dL (6.3-8.2); Uric Acid 12.3 mg/dL (3.7-7.4)
[2023-12-01 07:45] LABS: Blood Urea Nitrogen 134 mg/dL (7-17)
--- NOTE | 2023-12-01 10:00 | P.PN ---
Subjective Patient is seen for follow-up for acute kidney injury. Currently on Levophed. Receiving IV fluids. Also received a dose of IV Lasix yesterday evening. Urine output 30 to 60 cc an hour. Vital signs are stable. On vasopressor support. General: No acute distress. HEENT: Head exam is unremarkable. On nasal cannula. LUNGS: No audible rhonchi or wheezes. HEART: Tachycardic. ABDOMEN: Nontender. EXTREMITITES: 2+ edema. Objective - Vital Signs Vital signs: Vital Signs Temp 97.4 F L 12/01/23 08:00 Pulse 114 H 12/01/23 08:02 Resp 21 12/01/23 08:15 BP 89/61 12/01/23 08:15 Pulse Ox 94 L 12/01/23 08:15 FiO2 Intake & Output 11/30/23 12/01/23 12/01/23 18:59 06:59 18:59 Intake Total 3238.234 749.959 Output Total 265 290 100 Balance 2973.234 459.959 -100 Weight 89 kg 90.4 kg Intake: IV 2000 300 Piperacillin-Tazobactam 3 100 300 .375 gm In Sodium Chloride 0.9% 100 ml @ 25 mls/hr IVPB Q8H [facility] Rx#: [id number] Sodium Chloride 0.9% 1, 900 000 ml @ 100 mls/hr IV . Q10H [facility] Rx#:[id number] Sodium Chloride 0.9% 1, 1000 000 ml @ 999 mls/hr IV . Q1H1M [facility] Rx#:[id number] Intake, IV Titration 408.234 449.959 Amount Norepinephrine 4 mg In 308.234 449.959 Sodium Chloride 0.9% 250 ml @ 0.03 MCG/KG/MIN 9. 487 mls/hr IV .Q24H [facility] Rx#:[id number] Piperacillin-Tazobactam 3 100 .375 gm In Sodium Chloride 0.9% 100 ml @ 25 mls/hr IVPB Q8H [facility] Rx#: [id number] Oral 830 Output: Urine 265 290 100 Other: Voiding Method Indwelling Catheter Indwelling Catheter Indwelling Catheter - Labs CBC & Chem 7: 12/01/23 05:47 12/01/23 05:47 Labs: Abnormal Lab Results - Last 24 Hours (Table) 0911/30/23 11/30/23 Range/Units 05:21 05:21 12:59 WBC (3.8-10.6) k/uL RBC (3.80-5.40) m/uL Hgb (11.4-16.0) gm/dL Hct (34.0-46.0) % MCH (25.0-35.0) pg MCHC (31.0-37.0) g/dL RDW (11.5-15.5) % Neutrophils # (1.3-7.7) k/uL Lymphocytes # (1.0-4.8) k/uL Chloride (98-107) mmol/L Carbon Dioxide (22-30) mmol/L BUN >120 H* (7-17) mg/dL Creatinine (0.52-1.04) mg/dL Glucose (74-99) mg/dL POC Glucose (mg/dL) 210 H (70-110) mg/dL Uric Acid 16.4 A* (2.9-7.7) mg/dL Calcium (8.4-10.2) mg/dL Phosphorus (2.5-4.5) mg/dL Magnesium (1.6-2.3) mg/dL Total Bilirubin (0.2-1.3) mg/dL AST (14-36) U/L ALT (4-34) U/L Alkaline Phosphatase (38-126) U/L Total Protein (6.3-8.2) g/dL Albumin (3.5-5.0) g/dL 11/30/23 11/30/23 11/30/23 Range/Units 16:32 16:54 21:01 WBC (3.8-10.6) k/uL RBC (3.80-5.40) m/uL Hgb (11.4-16.0) gm/dL Hct (34.0-46.0) % MCH (25.0-35.0) pg MCHC (31.0-37.0) g/dL RDW (11.5-15.5) % Neutrophils # (1.3-7.7) k/uL Lymphocytes # (1.0-4.8) k/uL Chloride (98-107) mmol/L Carbon Dioxide 19 L (22-30) mmol/L BUN 130 H* (7-17) mg/dL Creatinine 2.28 H (0.52-1.04) mg/dL Glucose 185 H (74-99) mg/dL POC Glucose (mg/dL) 226 H 207 H (70-110) mg/dL Uric Acid (2.9-7.7) mg/dL Calcium 7.9 L (8.4-10.2) mg/dL Phosphorus (2.5-4.5) mg/dL Magnesium (1.6-2.3) mg/dL Total Bilirubin (0.2-1.3) mg/dL AST (14-36) U/L ALT (4-34) U/L Alkaline Phosphatase (38-126) U/L Total Protein (6.3-8.2) g/dL Albumin (3.5-5.0) g/dL 11/30/23 12/01/23 12/01/23 Range/Units 23:56 05:47 05:47 WBC 13.3 H (3.8-10.6) k/uL RBC 3.11 L (3.80-5.40) m/uL Hgb 7.4 L D (11.4-16.0) gm/dL Hct 24.9 L (34.0-46.0) % MCH 23.7 L (25.0-35.0) pg MCHC 29.6 L (31.0-37.0) g/dL RDW 21.5 H (11.5-15.5) % Neutrophils # 12.4 H (1.3-7.7) k/uL Lymphocytes # 0.7 L (1.0-4.8) k/uL Chloride 109 H (98-107) mmol/L Carbon Dioxide 19 L (22-30) mmol/L BUN 130 H* 134 H* (7-17) mg/dL Creatinine 2.41 H 2.25 H (0.52-1.04) mg/dL Glucose 170 H 191 H (74-99) mg/dL POC Glucose (mg/dL) (70-110) mg/dL Uric Acid 12.3 H (2.9-7.7) mg/dL Calcium 8.1 L 7.9 L (8.4-10.2) mg/dL Phosphorus 7.2 H (2.5-4.5) mg/dL Magnesium 2.9 H (1.6-2.3) mg/dL Total Bilirubin 5.0 H (0.2-1.3) mg/dL AST 152 H (14-36) U/L ALT 77 H (4-34) U/L Alkaline Phosphatase 1022 H (38-126) U/L Total Protein 5.2 L (6.3-8.2) g/dL Albumin 2.3 L (3.5-5.0) g/dL 12/01/23 Range/Units 06:31 WBC (3.8-10.6) k/uL RBC (3.80-5.40) m/uL Hgb (11.4-16.0) gm/dL Hct (34.0-46.0) % MCH (25.0-35.0) pg MCHC (31.0-37.0) g/dL RDW (11.5-15.5) % Neutrophils # (1.3-7.7) k/uL Lymphocytes # (1.0-4.8) k/uL Chloride (98-107) mmol/L Carbon Dioxide (22-30) mmol/L BUN (7-17) mg/dL Creatinine (0.52-1.04) mg/dL Glucose (74-99) mg/dL POC Glucose (mg/dL) 230 H (70-110) mg/dL Uric Acid (2.9-7.7) mg/dL Calcium (8.4-10.2) mg/dL Phosphorus (2.5-4.5) mg/dL Magnesium (1.6-2.3) mg/dL Total Bilirubin (0.2-1.3) mg/dL AST (14-36) U/L ALT (4-34) U/L Alkaline Phosphatase (38-126) U/L Total Protein (6.3-8.2) g/dL Albumin (3.5-5.0) g/dL Microbiology - Last 24 Hours (Table) 11/29/23 16:28 Blood Culture - Preliminary Blood Assessment and Plan Assessment: 1. Acute kidney injury, ATN secondary to hypotension. Renal function stable. Creatinine 2.25 today. UA is benign. 2. Metastatic cholangiocarcinoma. Oncology following. Has received chemotherapy. 3. History of CHF with preserved ejection fraction. 4. Volume overload. 5. Hyperkalemia associated with acute kidney injury and metabolic acidosis. Improved. 6. History of bipolar disorder 7. Shock maintained on Levophed. 8. Metabolic acidosis secondary to acute kidney injury and IV fluids. On oral bicarb. Improved. 9. Hyperphosphatemia secondary to acute kidney injury. Also uric acid noted to be elevated along with hyperkalemia yesterday concerning for tumor lysis. Status post rasburicase. Oncology following. Plan: Decrease rate of IV fluids. Repeat IV Lasix 40 mg if urine output drops to below 30 cc an hour for 3 hours. Wean Levophed. Increase dose of midodrine to 15 mg. Cortisol level 16.4 (not low). Continue to monitor renal function and urine output. Elevated BUN secondary to catabolic state. Not on steroids. Questionable GI bleed as hemoglobin did drop. Check stool for occult blood. Continue to assess daily for need for renal placement therapy.
--- NOTE | 2023-12-01 10:14 | P.PN ---
Subjective Progress Note Date: 11/30/23 This is a 58-year-old patient, follows Dr. Rincon. Chronic stable medical conditions include GERD, diabetes, hypertension, hyperlipidemia, osteoarthritis, hiatal hernia. Gastrojejunal gastric bypass in 2013. CHF with preserved EF October 11, 2023:, by Dr. Hooks: EGD with rigid dilator 57 [place] to address lower esophageal sphincter and esophageal dysmotility.. 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 Port was placed recently. - oncologist Dr. Calin Atkins. Patient was discharged from the hospital last week following admission for congestive heart failure exacerbation with preserved ejection fraction. Also has some ascites but not felt to be enough for paracentesis. Patient is due to start chemotherapy shortly. Patient recently was admitted with CHF with preserved EF exacerbation. Subsequently was in the hospital from November 15 through November 18 with PE. Dis charged on Eliquis. Just prior to leaving patient had decided to become DNR. Patient now presents feeling increasing short of breath. Tired. Decreased appetite. Not ambulating much. Decreased oral intake. In the ER troponin was 1.1. Patient denies any chest pain. Dr. Smith had spoken to the bank sales and service manager Dr. Regis Morrison. Not for any further intervention. Patient denies any cough. Just tired. November 24: Patient was seen this afternoon. Mother at the bedside. Patient more awake today. Tired. Decreased appetite. Discussed. Patient today wants to go back to being a full code. Oncology ordered patient to receive fluorouracil. And leucovorin. Patient initial symptoms felt to be combination of r acute kidney injury and hepatic encephalopathy. Patient remains on lactulose November 25: Sitting up in bed. Mother at the bedside. Following medication changes being done. Dilaudid is being discontinued. Will give Tylenol 3 as needed during daytime. Fords to continue at night. Lipitor Abilify continues to remain off. Patient is on Pradaxa instead of Eliquis. On Diflucan for oral candidiasis. On chemo agents per oncology. Slight improvement in hepatic numbers 11/26. Patient seen and examined. Vital signs this morning the patient had 74, heart rate of 100, blood pressure 103/68. Blood work done this morning showed WBC 25.5, hemoglobin 8.6, platelet count 407, sodium 132, potassium 4, BUN 18, creatinine 1.62. Complaining of weakness. Complaining of shortness of breath on exertion 11/27. Patient seen and examined. Complaining of difficulty in swallowing, s emery her mouth is very dry. Complaining of abdominal pain 11/29/2023 Patient is seen in follow-up today and is lethargic but arousable. Patients blood pressures have been low and now receiving midodrine and remains in the low 80's. Patient appears to have a septic picture and will consult pulmonary and ID and appreciate input and recommendations. Patient is reporting weakness, lightheadedness, with dizziness even sitting in the bed. Patient is significantly weak and may require ICU for closer monitoring. 11/30/2023 Patient is seen and evaluated in follow-up this morning in the ICU as she was transferred here for hypotension requiring pressor support. Patient remains on Levophed and also midodrine which is being increased per nephrology. Patient with multiple medical consultations following including oncology and infectious disease as there was concern for sepsis. White count was significantly elevated prior to transfer to the ICU and is trending down nicely and currently at 16.2. Patient is afebrile and hemoglobin is stable at 8.9. Kidney functions remain elevated and nephrology is following making adjustments. Current creatinine is 2.41 with a BUN of 130, sodium is 138 potassium is 4.8. Preliminary blood cultures are negative at this time. REVIEW OF SYSTEMS: CONSTITUTIONAL: No fever, no malaise,. reports fatigue CARDIOVASCULAR: No chest pain, no palpitations, no syncope. PULMONARY: As mentioned above GASTROINTESTINAL: No diarrhea, no nausea, no vomiting. no apetite and continued abdominal pain NEUROLOGICAL: No headaches, reports severe weakness PHYSICAL EXAMINATION: GENERAL: The patient is alert and oriented x3, more awake today, chronically ill looking HEENT: Pupils are round and equally reacting to light. EOMI. No scleral icterus. No conjunctival pallor. Normocephalic, atraumatic. No pharyngeal erythema. No thyromegaly. CARDIOVASCULAR: S1 and S2 present. No murmurs, rubs, or gallops. PULMONARY: Chest is clear to auscultation, no wheezing or crackles. ABDOMEN: Soft, tender, nondistended, normoactive bowel sounds. No palpable organomegaly. MUSCULOSKELETAL: No joint swelling or deformity. EXTREMITIES: No cyanosis, clubbing, or pedal edema. diffusely weak NEUROLOGICAL: Gross neurological examination did not reveal any focal deficits. SKIN: No rashes. Assessment and plan -Acute metabolic encephalopathy/possible hepatic encephalopathy, delirium. From acute kidney injury, and liver dysfunction: Resolved -Possible sepsis with leukocytosis, hypotension and mild tachycardia, possibly due to abdominal source. CT abdomen pending at this time -Acute non-ST elevation OR, type II from hemodynamic mismatch. Continue medical management - hepatic encephalopathy: Improved Lactulose 20 g twice daily -Acute kidney injury possibly combination of prerenal and ATN. -Hyperkalemia secondary to acute kidney injury. 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 MRI brain negative Given fluorouracil, leucovorin -Started on chemotherapy, November [address] Atkins Palliative chemotherapy -Microcytic anemia to include iron deficiency from underlying malignancy and nutritional component from decreased oral intake. Monitor CBC -Bipolar disorder Abilify-hold. Trazodone. Lamictal -Diabetes mellitus type 2 , continue insulin regimen for now Monitor blood sugar levels, continue sliding scale insulin -GERD Protonix -Moderate protein calorie malnutrition decreased oral intake. Ensure -Hypotension Grady wrap. Midodrine. -COPD in prior smoker Albuterol as needed -Gastrojejunal bypass 2013 Patient does follow with Dr. Agatha Jaeger Plan: Continue current regimen and medications adjusted. Pulmonary medical billing coder and ID following for septic work-up and requiring ICU for close monitoring and hypotension. Patient has been started on low-dose Levophed and also increased midodrine with nephrology following Continue to encourage incentive spirometer PT/oT to eval Procalcitonin and blood cultures obtained and pending. Medications including antibiotics have been adjusted per ID. White count is trending down and patient is afebrile CT abdomen ordered and pending Overall prognosis is guarded. The impression and plan of care has been dictated by Mariposa Conklin, Nurse Practitioner as directed. Dr. Shekhar MD I have performed a history and examination and MDM of this patient, discussed the same with the dictator, and agree with the dictator's assessment and plan as written ,documented as a scribe. Based on total visit time, I have performed more than 50% of the visit. Objective - Vital Signs Vital signs: Vital Signs Temp 97.3 F L 11/30/23 13:00 Pulse 86 11/30/23 13:00 Resp 17 11/30/23 13:00 BP 89/56 11/30/23 13:00 Pulse Ox 98 11/30/23 13:00 FiO2 Intake & Output 11/29/23 11/30/23 11/30/23 18:59 06:59 18:59 Intake Total 1250 9615.224 8312.116 Output Total 65 240 145 Balance 1185 0323.061 8104.116 Weight 89 kg 89 kg Intake: IV 200 1200 1600 Sodium Chloride 0.9% 1, 200 1200 600 000 ml @ 100 mls/hr IV . Q10H [facility] Rx#:[id number] Sodium Chloride 0.9% 1, 1000 000 ml @ 999 mls/hr IV . Q1H1M [facility] Rx#:[id number] Intake, IV Titration 1050 231.884 172.116 Amount Cefepime 2 gm In Sodium 50 50 Chloride 0.9% 100 ml @ 25 mls/hr IVPB Q8HR [facility] Rx# :[id number] Norepinephrine 4 mg In 181.884 72.116 Sodium Chloride 0.9% 250 ml @ 0.03 MCG/KG/MIN 9. 487 mls/hr IV .Q24H [facility] Rx#:[id number] Piperacillin-Tazobactam 3 100 .375 gm In Sodium Chloride 0.9% 100 ml @ 25 mls/hr IVPB Q8H [facility] Rx#: [id number] Sodium Chloride 0.9% 1, 1000 000 ml @ 999 mls/hr IV . Q1H1M [facility] Rx#:[id number] Oral 100 Output: Urine 65 240 145 Other: Voiding Method Indwelling Catheter - Labs CBC & Chem 7: 12/01/23 05:47 12/01/23 05:47 Labs: Abnormal Lab Results - Last 24 Hours (Table) 11/29/23 11/29/23 11/29/23 Range/Units 16:23 16:28 16:34 WBC (3.8-10.6) k/uL RBC (3.80-5.40) m/uL Hgb (11.4-16.0) gm/dL Hct (34.0-46.0) % MCV (80.0-100.0) fL MCH (25.0-35.0) pg MCHC (31.0-37.0) g/dL RDW (11.5-15.5) % Neutrophils # (1.3-7.7) k/uL Lymphocytes # (1.0-4.8) k/uL Potassium (3.5-5.1) mmol/L Chloride (98-107) mmol/L Carbon Dioxide (22-30) mmol/L Creatinine (0.52-1.04) mg/dL Glucose (74-99) mg/dL POC Glucose (mg/dL) 195 H (70-110) mg/dL Uric Acid (2.9-7.7) mg/dL Calcium (8.4-10.2) mg/dL Magnesium (1.6-2.3) mg/dL Total Bilirubin (0.2-1.3) mg/dL AST (14-36) U/L ALT (4-34) U/L Alkaline Phosphatase (38-126) U/L C-Reactive Protein 12.70 H (0.00-0.80) mg/dL Total Protein (6.3-8.2) g/dL Albumin (3.5-5.0) g/dL Procalcitonin 4.66 H (0.02-0.50) ng/mL 11/29/23 11/29/23 11/30/23 Range/Units 16:41 21:07 05:21 WBC (3.8-10.6) k/uL RBC (3.80-5.40) m/uL Hgb (11.4-16.0) gm/dL Hct (34.0-46.0) % MCV (80.0-100.0) fL MCH (25.0-35.0) pg MCHC (31.0-37.0) g/dL RDW (11.5-15.5) % Neutrophils # (1.3-7.7) k/uL Lymphocytes # (1.0-4.8) k/uL Potassium 5.4 H (3.5-5.1) mmol/L Chloride 109 H (98-107) mmol/L Carbon Dioxide 18 L (22-30) mmol/L Creatinine 2.22 H (0.52-1.04) mg/dL Glucose 177 H (74-99) mg/dL POC Glucose (mg/dL) 195 H 177 H (70-110) mg/dL Uric Acid (2.9-7.7) mg/dL Calcium 7.9 L (8.4-10.2) mg/dL Magnesium 2.9 H (1.6-2.3) mg/dL Total Bilirubin 4.7 H (0.2-1.3) mg/dL AST 190 H (14-36) U/L ALT 80 H (4-34) U/L Alkaline Phosphatase 1193 H (38-126) U/L C-Reactive Protein (0.00-0.80) mg/dL Total Protein 4.8 L (6.3-8.2) g/dL Albumin 2.1 L (3.5-5.0) g/dL Procalcitonin (0.02-0.50) ng/mL 11/30/23 11/30/23 11/30/23 Range/Units 05:21 05:21 06:19 WBC 16.2 H (3.8-10.6) k/uL RBC 3.70 L (3.80-5.40) m/uL Hgb 8.9 L (11.4-16.0) gm/dL Hct 29.3 L (34.0-46.0) % MCV 79.3 L (80.0-100.0) fL MCH 24.2 L (25.0-35.0) pg MCHC 30.5 L (31.0-37.0) g/dL RDW 21.7 H (11.5-15.5) % Neutrophils # 15.4 H (1.3-7.7) k/uL Lymphocytes # 0.6 L (1.0-4.8) k/uL Potassium (3.5-5.1) mmol/L Chloride (98-107) mmol/L Carbon Dioxide (22-30) mmol/L Creatinine (0.52-1.04) mg/dL Glucose (74-99) mg/dL POC Glucose (mg/dL) 216 H (70-110) mg/dL Uric Acid 16.4 A* (2.9-7.7) mg/dL Calcium (8.4-10.2) mg/dL Magnesium (1.6-2.3) mg/dL Total Bilirubin (0.2-1.3) mg/dL AST (14-36) U/L ALT (4-34) U/L Alkaline Phosphatase (38-126) U/L C-Reactive Protein (0.00-0.80) mg/dL Total Protein (6.3-8.2) g/dL Albumin (3.5-5.0) g/dL Procalcitonin (0.02-0.50) ng/mL 11/30/23 Range/Units 12:59 WBC (3.8-10.6) k/uL RBC (3.80-5.40) m/uL Hgb (11.4-16.0) gm/dL Hct (34.0-46.0) % MCV (80.0-100.0) fL MCH (25.0-35.0) pg MCHC (31.0-37.0) g/dL RDW (11.5-15.5) % Neutrophils # (1.3-7.7) k/uL Lymphocytes # (1.0-4.8) k/uL Potassium (3.5-5.1) mmol/L Chloride (98-107) mmol/L Carbon Dioxide (22-30) mmol/L Creatinine (0.52-1.04) mg/dL Glucose (74-99) mg/dL POC Glucose (mg/dL) 210 H (70-110) mg/dL Uric Acid (2.9-7.7) mg/dL Calcium (8.4-10.2) mg/dL Magnesium (1.6-2.3) mg/dL Total Bilirubin (0.2-1.3) mg/dL AST (14-36) U/L ALT (4-34) U/L Alkaline Phosphatase (38-126) U/L C-Reactive Protein (0.00-0.80) mg/dL Total Protein (6.3-8.2) g/dL Albumin (3.5-5.0) g/dL Procalcitonin (0.02-0.50) ng/mL
--- NOTE | 2023-12-01 10:21 | CT ---
EXAMINATION TYPE: CT abdomen pelvis wo con DATE OF EXAM: 11/30/2023 COMPARISON: 10/15/2023 HISTORY: Sepsis abdominal abscess CT DLP: 1123.4 mGycm Examination of the solid and hollow viscera is limited given the lack of contrast. FINDINGS: LUNG BASES: Basilar atelectasis and/or infiltrates with small effusions. LIVER/GB: Hepatomegaly with innumerable hepatic lesions. Mass in the region of the noah hepatis andrea uring 6.2 x 5.4 cm may reflect conglomerate adenopathy. PANCREAS: No pancreatic mass identified. No inflammatory process seen. SPLEEN: No evidence for splenomegaly. No intrasplenic lesions seen. ADRENALS: No adrenal nodules identified. No evidence for thickening. KIDNEYS: No evidence for renal mass. No nephrolithiasis. No hydronephrosis. BOWEL: Appendix has a normal appearance. No evidence of bowel obstruction. No inflammatory process. Lymph nodes: No evidence for adenopathy greater than 1 cm. Abdominal aorta: Atheromatous changes seen. No evidence for aneurysm. Genital organs: No significant abnormality. Other: Anasarca changes. Ascites about the upper abdomen and pelvis. IMPRESSION: 1. Diffuse hepatic metastatic disease with hepatomegaly. 2. Conglomerate mass within the noah hepatis as discussed above. 3. Anasarca changes with some mild ascites within the abdomen and pelvis. 4. Basilar atelectasis and/or infiltrates with small effusions.
[2023-12-01] MEDS ORDERED: traZODone HCL 100 MG TAB PO PRN (11:52)
[2023-12-01 12:16] LABS: Glucose,Whole Blood 238 mg/dL (70-110)
[2023-12-01] MEDS: MIDODRINE 5 MG TAB PO SCH (12:36)
[2023-12-01] MEDS: ARIPiprazole 5 MG TAB PO SCH (12:37)
[2023-12-01] MEDS ORDERED: SALINE NASAL GEL 14.1 GM TUBE NASAL PRN (13:33)
--- NOTE | 2023-12-01 13:45 | P.PN ---
Subjective Progress Note Date: 12/01/23 Principal diagnosis: Hypotension secondary to dehydration with sepsis, and possible septic shock This is a 58-year-old female patient with a known history of chronic obstructive pulmonary disease, chronic tobacco dependence, atrial flutter, diabetes mellitus type 2 hypertension, hyperlipidemia bipolar disorder. She also has a recent diagnosis of cholangiocarcinoma with metastasis. She was to be initiated on cisplatin/Gemzar/Imfinzi however the patient has had recent multiple admissions delaying her treatment. She was readmitted here again on 11/24/2023 with shortness of breath and right sided abdominal pain. She was seen and evaluated by medical oncology who initiated the patient on FOLFOX. Today she had developed hypotension with mean arterial pressures in the 50s. She was subsequently transferred to the intensive care unit we are consulted for the same. She is seen in the ICU awake and alert in no acute distress. She is maintaining O2 saturations in the 90s on 3 L/min per nasal cannula. She is weak. She is afebrile. Chest x-ray is showing improvement in the pulmonary venous congestion. Blood cultures and procalcitonin level pending. Urinalysis revealing turbid urine with high WBCs and occasional bacteria. Culture pending. White count 28.2. Hemoglobin 9.9. Platelets 375. Sodium 137. Potassium 4.1. Bicarb 21. BUN 97. Creatinine 1.68. Glucose 157. AST 242. ALT 78. Alk phos 1164. On normal saline at 100 mL/h. Patient was today on 11/30/2023, remains hypotensive requiring norepinephrine at 0.1 mcg/kg/min, her IV fluid is 100 cc/h, patient received few fluid boluses, and does not seem to be making significant improvement. Hence more fluids will be given and will hold diuretics for now. She is on 3 L nasal cannula, saturating at 98%, blood pressure during my evaluation was 89/56 with mean arterial pressure of 69 temperature is 97.3. Patient is noted to have worsening leukocytosis with WBC of 16.2 hemoglobin 8.9. Electrolytes are normal bicarb is 18 creatinine is 2.22 slightly worse today compared to yesterday. Clinically the patient seems to be dehydrated and definitely needs more fluid boluses in the meantime we will continue her norepinephrine. Chest x-ray shows no evidence of pneumonia, and no evidence of pulmonary edema. Procalcitonin level is 4.66, and her serum cortisol level is normal. Urine output remains extremely poor and marginal, if no improvement with fluid boluses, patient could be considered for possible trial of diuretics although hoping to avoid diuretics because of her borderline blood pressure and relative hypotension requiring norepinephrine. 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 Patient had her dose of midodrine increased to 15 mg 3 times daily remains with very marginal low blood pressure. Yesterday after multiple fluid boluses and the patient continued to have poor urine output, she was given a dose of Lasix 60 mg IV push, today she has a urine output of 30 to 40 cc/h. Her uric acid was noted to be high yesterday, and she received rasburicase. She may have a picture of tumor lysis syndrome. Nephrology remains on board, possibility of renal replacement is being considered, but she is not at that point yet. Patient is on 3 L nasal cannula chest x-ray showed minimal prominence of the pulmonary vasculature. Remains on Diflucan, Zosyn, Pradaxa, nystatin, and her midodrine dose was increased. Patient feels generally weak, continues to have some vague abdominal pain. Blood cultures remain negative WBC count 13.3 hemoglobin 7.4 electrolytes are normal bicarb is 22 BUN is 134 creatinine down to 2.25 from 2.41 yesterday. Enzymes are a bit el evated, alkaline phosphatase is 1022. CT of abdomen and pelvis showed mostly bibasilar atelectasis and small effusions on the chest x-ray, there is evidence of diffuse hepatic metastatic disease with hepatomegaly. There is a conglomerate mass within the noah hepatis anasarca with mild ascites is noted. Objective - Vital Signs Vital signs: Vital Signs Temp 97.4 F L 12/01/23 08:00 Pulse 114 H 12/01/23 08:02 Resp 21 12/01/23 08:15 BP 89/61 12/01/23 08:15 Pulse Ox 94 L 12/01/23 08:15 FiO2 Intake & Output 11/30/23 12/01/23 12/01/23 18:59 06:59 18:59 Intake Total 3238.234 749.959 Output Total 265 290 100 Balance 2973.234 459.959 -100 Weight 89 kg 90.4 kg Intake: IV 2000 300 Piperacillin-Tazobactam 3 100 300 .375 gm In Sodium Chloride 0.9% 100 ml @ 25 mls/hr IVPB Q8H [facility] Rx#: [id number] Sodium Chloride 0.9% 1, 900 000 ml @ 100 mls/hr IV . Q10H [facility] Rx#:[id number] Sodium Chloride 0.9% 1, 1000 000 ml @ 999 mls/hr IV . Q1H1M [facility] Rx#:[id number] Intake, IV Titration 408.234 449.959 Amount Norepinephrine 4 mg In 308.234 449.959 Sodium Chloride 0.9% 250 ml @ 0.03 MCG/KG/MIN 9. 487 mls/hr IV .Q24H [facility] Rx#:[id number] Piperacillin-Tazobactam 3 100 .375 gm In Sodium Chloride 0.9% 100 ml @ 25 mls/hr IVPB Q8H [facility] Rx#: [id number] Oral 830 Output: Urine 265 290 100 Other: Voiding Method Indwelling Catheter Indwelling Catheter Indwelling Catheter - Exam GENERAL EXAM: Alert, weak, 58-year-old female, on 3 L nasal cannula, O2 saturation 93% HEAD: Normocephalic. EYES: Normal reaction of pupils, equal size. NOSE: Clear with pink turbinates. THROAT: No erythema or exudates. NECK: No masses, no JVD. CHEST: No chest wall deformity. LUNGS: Equal air entry no crackles, rhonchi or wheezes CVS: S1 and S2 normal with no audible murmur, regular rhythm. ABDOMEN: Slightly tender right upper quadrant, normal bowel sounds, no tenderness in the right lower quadrant, no rebound no guarding SKIN: No rashes patient has mostly dry skin and poor turgor. CENTRAL NERVOUS SYSTEM: Alert and oriented x 3 no gross focal neurologic deficit EXTREMITIES: No clubbing, no edema, no cyanosis - Labs CBC & Chem 7: 12/01/23 05:47 12/01/23 05:47 Labs: Abnormal Lab Results - Last 24 Hours (Table) 11/30/23 11/30/23 11/30/23 Range/Units 05:21 05:21 16:32 WBC (3.8-10.6) k/uL RBC (3.80-5.40) m/uL Hgb (11.4-16.0) gm/dL Hct (34.0-46.0) % MCH (25.0-35.0) pg MCHC (31.0-37.0) g/dL RDW (11.5-15.5) % Neutrophils # (1.3-7.7) k/uL Lymphocytes # (1.0-4.8) k/uL Chloride (98-107) mmol/L Carbon Dioxide (22-30) mmol/L BUN >120 H* (7-17) mg/dL Creatinine (0.52-1.04) mg/dL Glucose (74-99) mg/dL POC Glucose (mg/dL) 226 H (70-110) mg/dL Uric Acid 16.4 A* (2.9-7.7) mg/dL Calcium (8.4-10.2) mg/dL Phosphorus (2.5-4.5) mg/dL Magnesium (1.6-2.3) mg/dL Total Bilirubin (0.2-1.3) mg/dL AST (14-36) U/L ALT (4-34) U/L Alkaline Phosphatase (38-126) U/L Total Protein (6.3-8.2) g/dL Albumin (3.5-5.0) g/dL 11/30/23 11/30/23 11/30/23 Range/Units 16:54 21:01 23:56 WBC (3.8-10.6) k/uL RBC (3.80-5.40) m/uL Hgb (11.4-16.0) gm/dL Hct (34.0-46.0) % MCH (25.0-35.0) pg MCHC (31.0-37.0) g/dL RDW (11.5-15.5) % Neutrophils # (1.3-7.7) k/uL Lymphocytes # (1.0-4.8) k/uL Chloride (98-107) mmol/L Carbon Dioxide 19 L 19 L (22-30) mmol/L BUN 130 H* 130 H* (7-17) mg/dL Creatinine 2.28 H 2.41 H (0.52-1.04) mg/dL Glucose 185 H 170 H (74-99) mg/dL POC Glucose (mg/dL) 207 H (70-110) mg/dL Uric Acid (2.9-7.7) mg/dL Calcium 7.9 L 8.1 L (8.4-10.2) mg/dL Phosphorus (2.5-4.5) mg/dL Magnesium 2.9 H (1.6-2.3) mg/dL Total Bilirubin (0.2-1.3) mg/dL AST (14-36) U/L ALT (4-34) U/L Alkaline Phosphatase (38-126) U/L Total Protein (6.3-8.2) g/dL Albumin (3.5-5.0) g/dL 12/01/23 12/01/23 12/01/23 Range/Units 05:47 05:47 06:31 WBC 13.3 H (3.8-10.6) k/uL RBC 3.11 L (3.80-5.40) m/uL Hgb 7.4 L D (11.4-16.0) gm/dL Hct 24.9 L (34.0-46.0) % MCH 23.7 L (25.0-35.0) pg MCHC 29.6 L (31.0-37.0) g/dL RDW 21.5 H (11.5-15.5) % Neutrophils # 12.4 H (1.3-7.7) k/uL Lymphocytes # 0.7 L (1.0-4.8) k/uL Chloride 109 H (98-107) mmol/L Carbon Dioxide (22-30) mmol/L BUN 134 H* (7-17) mg/dL Creatinine 2.25 H (0.52-1.04) mg/dL Glucose 191 H (74-99) mg/dL POC Glucose (mg/dL) 230 H (70-110) mg/dL Uric Acid 12.3 H (2.9-7.7) mg/dL Calcium 7.9 L (8.4-10.2) mg/dL Phosphorus 7.2 H (2.5-4.5) mg/dL Magnesium (1.6-2.3) mg/dL Total Bilirubin 5.0 H (0.2-1.3) mg/dL AST 152 H (14-36) U/L ALT 77 H (4-34) U/L Alkaline Phosphatase 1022 H (38-126) U/L Total Protein 5.2 L (6.3-8.2) g/dL Albumin 2.3 L (3.5-5.0) g/dL 12/01/23 Range/Units 12:14 WBC (3.8-10.6) k/uL RBC (3.80-5.40) m/uL Hgb (11.4-16.0) gm/dL Hct (34.0-46.0) % MCH (25.0-35.0) pg MCHC (31.0-37.0) g/dL RDW (11.5-15.5) % Neutrophils # (1.3-7.7) k/uL Lymphocytes # (1.0-4.8) k/uL Chloride (98-107) mmol/L Carbon Dioxide (22-30) mmol/L BUN (7-17) mg/dL Creatinine (0.52-1.04) mg/dL Glucose (74-99) mg/dL POC Glucose (mg/dL) 238 H (70-110) mg/dL Uric Acid (2.9-7.7) mg/dL Calcium (8.4-10.2) mg/dL Phosphorus (2.5-4.5) mg/dL Magnesium (1.6-2.3) mg/dL Total Bilirubin (0.2-1.3) mg/dL AST (14-36) U/L ALT (4-34) U/L Alkaline Phosphatase (38-126) U/L Total Protein (6.3-8.2) g/dL Albumin (3.5-5.0) g/dL Microbiology - Last 24 Hours (Table) 11/29/23 16:28 Blood Culture - Preliminary Blood Assessment and Plan Assessment: Impression: Hypotension secondary to dehydration and possible underlying infection, cultures have been negative Leukocytosis secondary to above Diffuse metastatic disease involving the liver as noted on CT of the abdomen and pelvis today. Microcytic anemia Acute kidney injury, secondary to hypotension, sepsis, dehydration, and again possible septic shock. Transaminitis Recent diagnosis of metastatic cholangiocarcinoma unable to be initiated on cisplatin/Gemzar/Imfinzi due to frequent readmissions. Received FOLFOX on this admission November 25 and , diffuse liver metastasis noted Anasarca secondary to above Acute on chronic abdominal pain secondary to above Recent PE/DVT, on Pradaxa due to GAYLA metastatic bilateral pulmonary nodules Hyperlipidemia History of diastolic congestive heart failure Diabetes mellitus 40-pack year smoking history Possible tumor lysis syndrome with hyperuricemia, patient received rasburicase Recommendation: Continue to monitor the patient in the ICU Continue antibiotics/Zosyn Cut down on fluids, patient received multiple fluid boluses with no significant improvement in urine output, she did improve with 1 dose of Lasix given after multiple fluid boluses. Renal function is slightly improved today compared to yesterday Hemodynamic support and titrate norepinephrine/accordingly Titrate FiO2 accordingly Procalcitonin was noted to be quite elevated cultures are nondiagnostic so far. Patient remains critically ill. Overall prognosis is extremely poor and guarded Will continue to monitor in the ICU Critical care time is over 30 minutes Time with Patient: Greater than 30
[2023-12-01 17:35] LABS: African American GFR (CKD) 30 (>60 ml/min/1.73 sqM); Anion Gap 14 mmol/L; Carbon Dioxide 17 mmol/L (22-30); Chloride 109 mmol/L (98-107); Glucose 174 mg/dL (74-99); Non-African American GFR(CKD) 26 (>60 ml/min/1.73 sqM); Potassium 4.9 mmol/L (3.5-5.1); Sodium 140 mmol/L (137-145)
[2023-12-01 17:46] LABS: Fibrinogen 387 mg/dL (200-500)
[2023-12-01 18:00] LABS: INR >10.0 (<1.2); Prothrombin Time >130.0 sec (10.0-12.5)
[2023-12-01 18:10] LABS: Blood Urea Nitrogen 140 mg/dL (7-17)
[2023-12-01] MEDS ORDERED: PHYTONADIONE 5 MG in SODIUM CHLORIDE 0.9% 50 ML IVPB STA (18:29)
[2023-12-01] MEDS ORDERED: Kcentra / Balfaxar PER PHARMACY 1 EACH MISC MISCELLANE SCH (18:45)
[2023-12-01] MEDS ORDERED: IDARUCIZUMAB 2.5 GM in EMPTY BAG 1 BAG IV SCH (19:00)
--- NOTE | 2023-12-01 19:02 | P.PN ---
Subjective Progress Note Date: 12/01/23 Principal diagnosis: cholangiocarcinoma Patient remains in ICU. BP remains soft, in 80-90s. Today pt is more lethargic. She is tearful at todays visit, stating she is scared. She is reporting weakness, leg pain and SOB. Denies abd pain and n/v Concern for TLS, s/p 1 dose Elitek. Creatinine 2.25, GFR 23. Hgb 7.4, plts 206,000, WBC 13.3 Objective - Vital Signs Vital signs: Vital Signs Temp 97.4 F L 12/01/23 08:00 Pulse 114 H 12/01/23 08:02 Resp 21 12/01/23 08:15 BP 89/61 12/01/23 08:15 Pulse Ox 94 L 12/01/23 08:15 FiO2 Intake & Output 11/30/23 12/01/23 12/01/23 18:59 06:59 18:59 Intake Total 3238.234 749.959 Output Total 265 290 100 Balance 2973.234 459.959 -100 Weight 89 kg 90.4 kg Intake: IV 2000 300 Piperacillin-Tazobactam 3 100 300 .375 gm In Sodium Chloride 0.9% 100 ml @ 25 mls/hr IVPB Q8H [facility] Rx#: [id number] Sodium Chloride 0.9% 1, 900 000 ml @ 100 mls/hr IV . Q10H [facility] Rx#:[id number] Sodium Chloride 0.9% 1, 1000 000 ml @ 999 mls/hr IV . Q1H1M [facility] Rx#:[id number] Intake, IV Titration 408.234 449.959 Amount Norepinephrine 4 mg In 308.234 449.959 Sodium Chloride 0.9% 250 ml @ 0.03 MCG/KG/MIN 9. 487 mls/hr IV .Q24H [facility] Rx#:[id number] Piperacillin-Tazobactam 3 100 .375 gm In Sodium Chloride 0.9% 100 ml @ 25 mls/hr IVPB Q8H [facility] Rx#: [id number] Oral 830 Output: Urine 265 290 100 Other: Voiding Method Indwelling Catheter Indwelling Catheter Indwelling Catheter - Constitutional General appearance: Present: no acute distress - EENT Eyes: Present: scleral icterus ENT: Present: hearing grossly normal - Respiratory Details: breathing mildly labored - Cardiovascular Details: skin warm and dry - Peripheral edema leg Peripheral Edema: bilateral: 3+ - Gastrointestinal General gastrointestinal: Present: distended. Absent: tenderness - Integumentary Integumentary: Absent: cyanotic - Musculoskeletal Musculoskeletal: Present: generalized weakness - Labs CBC & Chem 7: 12/01/23 05:47 12/01/23 17:00 Labs: Abnormal Lab Results - Last 24 Hours (Table) 11/30/23 11/30/23 11/30/23 Range/Units 05:21 05:21 12:59 WBC (3.8-10.6) k/uL RBC (3.80-5.40) m/uL Hgb (11.4-16.0) gm/dL Hct (34.0-46.0) % MCH (25.0-35.0) pg MCHC (31.0-37.0) g/dL RDW (11.5-15.5) % Neutrophils # (1.3-7.7) k/uL Lymphocytes # (1.0-4.8) k/uL Chloride (98-107) mmol/L Carbon Dioxide (22-30) mmol/L BUN >120 H* (7-17) mg/dL Creatinine (0.52-1.04) mg/dL Glucose (74-99) mg/dL POC Glucose (mg/dL) 210 H (70-110) mg/dL Uric Acid 16.4 A* (2.9-7.7) mg/dL Calcium (8.4-10.2) mg/dL Phosphorus (2.5-4.5) mg/dL Magnesium (1.6-2.3) mg/dL Total Bilirubin (0.2-1.3) mg/dL AST (14-36) U/L ALT (4-34) U/L Alkaline Phosphatase (38-126) U/L Total Protein (6.3-8.2) g/dL Albumin (3.5-5.0) g/dL 11/30/23 11/30/23 11/30/23 Range/Units 16:32 16:54 21:01 WBC (3.8-10.6) k/uL RBC (3.80-5.40) m/uL Hgb (11.4-16.0) gm/dL Hct (34.0-46.0) % MCH (25.0-35.0) pg MCHC (31.0-37.0) g/dL RDW (11.5-15.5) % Neutrophils # (1.3-7.7) k/uL Lymphocytes # (1.0-4.8) k/uL Chloride (98-107) mmol/L Carbon Dioxide 19 L (22-30) mmol/L BUN 130 H* (7-17) mg/dL Creatinine 2.28 H (0.52-1.04) mg/dL Glucose 185 H (74-99) mg/dL POC Glucose (mg/dL) 226 H 207 H (70-110) mg/dL Uric Acid (2.9-7.7) mg/dL Calcium 7.9 L (8.4-10.2) mg/dL Phosphorus (2.5-4.5) mg/dL Magnesium (1.6-2.3) mg/dL Total Bilirubin (0.2-1.3) mg/dL AST (14-36) U/L ALT (4-34) U/L Alkaline Phosphatase (38-126) U/L Total Protein (6.3-8.2) g/dL Albumin (3.5-5.0) g/dL 11/30/23 12/01/23 12/01/23 Range/Units 23:56 05:47 05:47 WBC 13.3 H (3.8-10.6) k/uL RBC 3.11 L (3.80-5.40) m/uL Hgb 7.4 L D (11.4-16.0) gm/dL Hct 24.9 L (34.0-46.0) % MCH 23.7 L (25.0-35.0) pg MCHC 29.6 L (31.0-37.0) g/dL RDW 21.5 H (11.5-15.5) % Neutrophils # 12.4 H (1.3-7.7) k/uL Lymphocytes # 0.7 L (1.0-4.8) k/uL Chloride 109 H (98-107) mmol/L Carbon Dioxide 19 L (22-30) mmol/L BUN 130 H* 134 H* (7-17) mg/dL Creatinine 2.41 H 2.25 H (0.52-1.04) mg/dL Glucose 170 H 191 H (74-99) mg/dL POC Glucose (mg/dL) (70-110) mg/dL Uric Acid 12.3 H (2.9-7.7) mg/dL Calcium 8.1 L 7.9 L (8.4-10.2) mg/dL Phosphorus 7.2 H (2.5-4.5) mg/dL Magnesium 2.9 H (1.6-2.3) mg/dL Total Bilirubin 5.0 H (0.2-1.3) mg/dL AST 152 H (14-36) U/L ALT 77 H (4-34) U/L Alkaline Phosphatase 1022 H (38-126) U/L Total Protein 5.2 L (6.3-8.2) g/dL Albumin 2.3 L (3.5-5.0) g/dL 12/01/23 12/01/23 Range/Units 06:31 12:14 WBC (3.8-10.6) k/uL RBC (3.80-5.40) m/uL Hgb (11.4-16.0) gm/dL Hct (34.0-46.0) % MCH (25.0-35.0) pg MCHC (31.0-37.0) g/dL RDW (11.5-15.5) % Neutrophils # (1.3-7.7) k/uL Lymphocytes # (1.0-4.8) k/uL Chloride (98-107) mmol/L Carbon Dioxide (22-30) mmol/L BUN (7-17) mg/dL Creatinine (0.52-1.04) mg/dL Glucose (74-99) mg/dL POC Glucose (mg/dL) 230 H 238 H (70-110) mg/dL Uric Acid (2.9-7.7) mg/dL Calcium (8.4-10.2) mg/dL Phosphorus (2.5-4.5) mg/dL Magnesium (1.6-2.3) mg/dL Total Bilirubin (0.2-1.3) mg/dL AST (14-36) U/L ALT (4-34) U/L Alkaline Phosphatase (38-126) U/L Total Protein (6.3-8.2) g/dL Albumin (3.5-5.0) g/dL Microbiology - Last 24 Hours (Table) 11/29/23 16:28 Blood Culture - Preliminary Blood Assessment and Plan (1) Cholangiocarcinoma Current Visit: Yes Status: Acute Priority: High Code(s): C22.1 - INTRAHEPATIC BILE DUCT CARCINOMA SNOMED Code(s): 648375511 (2) Dehydration Current Visit: Yes Status: Acute Code(s): E86.0 - DEHYDRATION SNOMED Code(s): 08897739 (3) NSTEMI (non-ST elevated myocardial infarction) Current Visit: Yes Status: Acute Priority: High Code(s): I21.4 - NON-ST ELEVATION (NSTEMI) MYOCARDIAL INFARCTION SNOMED Code(s): 35064277 (4) Renal insufficiency Current Visit: Yes Status: Acute Priority: High Code(s): N28.9 - DISORDER OF KIDNEY AND URETER, UNSPECIFIED SNOMED Code(s): 154335959 (5) Abdominal pain Current Visit: Yes Status: Acute Priority: High Code(s): R10.9 - UNSPECIFIED ABDOMINAL PAIN SNOMED Code(s): 74072247 (6) Transaminitis Current Visit: Yes Status: Acute Priority: High Code(s): R74.01 - ELEVATION OF LEVELS OF LIVER TRANSAMINASE LEVELS SNOMED Code(s): 044763123 Plan: Metastatic cholangiocarcinoma -Diagnosis and plan of care as dictated in consult -Plan was to start the first cycle of palliative chemotherapy with cisplatin/Gemzar/Imfinzi on 11/26/2023, however treatment has had multiple delays due to 3 admissions in the past month -She has had progressive weakness and worsening liver function concerning for disease progression of cholangiocarcinoma -She was started on cycle 1, day 1 of FOLFOX on the evening of 11/26/2023, completed on 11/27 -Clinically, she is having persisting fatigue and weakness, with intermittent abdominal pain and nausea, but abd pain has improved -Zofran 4 mg IV every 8 hours is available for nausea Iron deficiency anemia -Was diagnosed in September 2023 when she was diagnosed with cholangiocarcinoma -Received 4 rounds of IV iron inpatient at that time -Repeat iron studies obtained noted iron saturation of 21.92% with ferritin of 1944 -Given the iron saturation above 20%, we will hold on additional IV iron at this time GAYLA -Initially improved, today worsening kidney function noted. Creatinine 2.24, GFR 24 -Diuretics and antihypertensives were held along with midodrine 3 times daily started -I was concerned about hepatorenal syndrome given her worsening liver function secondary to progressive cholangiocarcinoma -Due to persisting hypotension, c/o dizziness. Will hold lasix. 500cc albumin infusion given and octreotide TID started -Pt has since been transferred to ICU and is currently on Levophed, BP maintaining in 80/90s systolically -Concern for TLS, uric acid 16.4. S/p 1 dose Elitek. Continue to monitor TLS labs, will give additional dose of Elitek if uric acid > 8.0 -Continue to follow nephrology recommendations, appreciate their assistance Mucositis: -Oral hygiene daily -Salt and soda rinses and Kools soln ordered Recent PE/DVT -Due to GAYLA, will start Pradaxa 75mg BID. -Continue to monitor kidney function. Will plan to start Pradaxa 150mg BID once kidney function acutely recovered *Spoke with nephrology today, pt may need HD. However, concerned with patient's declining condition, unsure if this would be the best decision at this time. We discussed we would like to try treat TLS, and see if kidney function begins to improve over the next 24 hours Also, had a discussion with patient today, regarding goals of care, including palliative and comfort cares measures. Patient was tearful and not sure how much of the conversation she was able to understand. Asked nursing to try to set up family meeting to further discuss goals of care attests: I have seen and examined patient, performed H&P, developed impression and plan of care. Discussed with dictator. Agree with documentation, dictated as a scribe
[2023-12-01 20:00] LABS: Glucose,Whole Blood 218 mg/dL (70-110)
[2023-12-01] MEDS: PHYTONADIONE 10 MG in SODIUM CHLORIDE 0.9% 50 ML IVPB STA (20:03)
--- NOTE | 2023-12-01 20:54 | P.PN ---
Progress Note - Text Progress Note Date: 12/01/23 Chief Complaint: Tired short of breath This is a 58-year-old patient, follows Dr. Rincon. Chronic stable medical conditions include GERD, diabetes, hypertension, hyperlipidemia, osteoarthritis, hiatal hernia. Gastrojejunal gastric bypass in 2013. CHF with preserved EF October 11, 2023:, by Dr. Hooks: EGD with rigid dilator 57 Sinhala to address lower esophageal sphincter and esophageal dysmotility.. 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 Port was placed recently. - oncologist Dr. Calin Atkins. Patient was discharged from the hospital last week following admission for congestive heart failure exacerbation with preserved ejection fraction. Also has some ascites but not felt to be enough for paracentesis. Patient is due to start chemotherapy shortly. Patient recently was admitted with CHF with preserved EF exacerbation. Subsequently was in the hospital from November 15 through November 18 with PE. Discharged on Eliquis. Just prior to leaving patient had decided to become DNR. Patient now presents feeling increasing short of breath. Tired. Decreased appetite. Not ambulating much. Decreased oral intake. In the ER troponin was 1.1. Patient denies any chest pain. Dr. Smith had spoken to the remarketing manager Dr. Regis Morrison. Not for any further intervention. Patient denies any cough. Just tired. November 24: Patient was seen this afternoon. Mother at the bedside. Patient more awake today. Tired. Decreased appetite. Discussed. Patient today wants to go back to being a full code. Oncology ordered patient to receive fluorouracil. And leucovorin. Patient initial symptoms felt to be combination of r acute kidney injury and hepatic encephalopathy. Patient remains on lactulose November 25: Sitting up in bed. Mother at the bedside. Following medication changes being done. Dilaudid is being discontinued. Will give Tylenol 3 as needed during daytime. [place] to continue at night. Lipitor Abilify continues to remain off. Patient is on Pradaxa instead of Eliquis. On Diflucan for oral candidiasis. On chemo agents per oncology. Slight improvement in hepatic numbers 11/26. Patient seen and examined. Vital signs this morning the patient had 74, heart rate of 100, blood pressure 103/68. Blood work done this morning showed WBC 25.5, hemoglobin 8.6, platelet count 407, sodium 132, potassium 4, BUN 18, creatinine 1.62. Complaining of weakness. Complaining of shortness of breath on exertion 11/27. Patient seen and examined. Complaining of difficulty in swallowing, states her mouth is very dry. Complaining of abdominal pain 11/29/2023 Patient is seen in follow-up today and is lethargic but arousable. Patients blood pressures have been low and now receiving midodrine and remains in the low 80's. Patient appears to have a septic picture and will consult pulmonary and ID and appreciate input and recommendations. Patient is reporting weakness, lightheadedness, with dizziness even sitting in the bed. Patient is significantly weak and may require ICU for closer monitoring. 11/30/2023 Patient is seen and evaluated in follow-up this morning in the ICU as she was transferred here for hypotension requiring pressor support. Patient remains on Levophed and also midodrine which is being increased per nephrology. Patient with multiple medical consultations following including oncology and infectious disease as there was concern for sepsis. White count was significantly elevated prior to transfer to the ICU and is trending down nicely and currently at 16.2. Patient is afebrile and hemoglobin is stable at 8.9. Kidney functions remain elevated and nephrology is following making adjustments. Current creatinine is 2.41 with a BUN of 130, sodium is 138 potassium is 4.8. Preliminary blood cultures are negative at this time. December 01, 2023: ICU. Patient's mother and brother at the bedside. Up in a recliner. Tired. Keeps dozing off. Significant edema. Some abdominal distention. Patient on Levophed. Lengthy discussion about CODE STATUS with the patient the mother and the brother. Patient prognosis is guarded. Patient had barely been eating for quite some time now. Renal function has not really improved. Not a candidate for dialysis because of low blood pressure. Otherwise overall patient not doing well. Patient confirmed that she is going to be a DNR. Because she did not want to be full code at some point. I did also talk about hospice. They will discuss this further. Prognosis very guarded. Patient's code mucositis with slight bleeding and discomfort in the mouth. Active Medications Acetaminophen/Codeine Phosphate (Acetaminophen-Codeine 300-30mg Tab) 1 each PO Q8HR PRN PRN Reason: Pain Last Admin: 12/01/23 16:35 Dose: 1 each Hydrocodone Bitart/Acetaminophen (Hydrocodone/Apap 5-325mg 1 Each Tab) 1 each PO HS [facility] Last Admin: 12/01/23 20:43 Dose: 1 each Albuterol Sulfate (Albuterol Nebulized 2.5 Mg/3 Ml) 2.5 mg INHALATION RT-Q6H PRN PRN Reason: Shortness Of Breath Last Admin: 12/01/23 08:02 Dose: 2.5 mg Aripiprazole (Aripiprazole 5 Mg Tab) 2.5 mg PO DAILY [facility] Last Admin: 12/01/23 12:37 Dose: 2.5 mg Al Hydroxide/Mg Hydroxide 30 ml/ Diphenhydramine HCl 75 mg/Lidocaine HCl 30 ml/Dexamethasone Sodium Phosphate 36 mg 0 ml PO QID [facility] Last Admin: 12/01/23 17:25 Dose: 5 ml Fluconazole (Fluconazole 100 Mg Tab) 50 mg PO DAILY [facility]; Protocol Last Admin: 12/01/23 08:03 Dose: 50 mg Sodium Chloride (Saline 0.9%) 1,000 mls @ 75 mls/hr IV .[id number] [facility] Last Admin: 12/01/23 05:38 Dose: 100 mls/hr Norepinephrine Bitartrate 4 mg (/ Sodium Chloride) 254 mls @ 9.487 mls/hr IV .Q24H [facility]; Protocol Last Admin: 12/01/23 05:38 Dose: 0.14 mcg/kg/min, 44.272 mls/hr Piperacillin Sod/Tazobactam (Sod 3.375 gm/ Sodium Chloride) 100 mls @ 25 mls/hr IVPB Q8H [facility]; Protocol Last Admin: 12/01/23 14:14 Dose: 25 mls/hr Insulin Aspart (Insulin Aspart (Novolog) 100 Unit/Ml Vial) 0 unit SQ ACHS [facility]; Protocol Last Admin: 12/01/23 18:56 Dose: 2 unit Lactulose (Lactulose 20 Gm/30 Ml Cup) 20 gm PO BID [facility] Last Admin: 12/01/23 20:44 Dose: 20 gm Midodrine (Midodrine 5 Mg Tab) 15 mg PO AC-TID [facility] Last Admin: 12/01/23 17:25 Dose: 15 mg Multivitamins (Multivitamins, Thera 1 Each Tab) 1 each PO DAILY [facility] Last Admin: 12/01/23 08:02 Dose: 1 each Naloxone HCl (Naloxone 0.4 Mg/Ml 1 Ml Vial) 0.2 mg IV Q2M PRN PRN Reason: Opioid Reversal Nystatin (Nystatin 100,000 Unit/Ml Susp 500,000 Unit/5 Ml Cup) 500,000 unit PO QID [facility]; Protocol Last Admin: 12/01/23 17:24 Dose: 500,000 unit Octreotide Acetate (Octreotide 100 Mcg/Ml Inj) 100 mcg SQ Q8H [facility] Last Admin: 12/01/23 12:44 Dose: 100 mcg Ondansetron HCl (Ondansetron 4 Mg/2 Ml Vial) 4 mg IVP Q8HR PRN PRN Reason: Nausea And Vomiting Last Admin: 11/30/23 21:55 Dose: 4 mg Pantoprazole Sodium (Pantoprazole 40 Mg Tablet) 40 mg PO DAILY PRN PRN Reason: Acid Reflux Sodium Bicarbonate (Salt And Soda Mouthwash 1,000 Ml) 5 ml PO 5XD [facility] Last Admin: 12/01/23 16:48 Dose: Not Given Sodium Bicarbonate (Sodium Bicarbonate Tab 650 Mg Tab) 650 mg PO BID [facility] Last Admin: 12/01/23 20:44 Dose: 650 mg Sodium Chloride (Saline Nasal Gel 14.1 Gm Tube) 1 applic NASAL Q4HR PRN PRN Reason: Dry Nasal Passages Trazodone HCl (Trazodone Hcl 100 Mg Tab) 100 mg PO HS PRN PRN Reason: Insomnia Social history: started smoking at the age of [age] 1 pack a day. In the past. Alcohol occasionally. Had also done marijuana for pain. Mother is living with her Physical examination: VITAL SIGNS: 97.4, 92, 15, 97 x 48, 92% GENERAL: Up in the recliner, tired, doses of EYES: Pupils equal. Conjunctiva pale l. HEENT: External appearance of nose and ears normal, oral cavity mucositis NECK: JVD not raised; masses not palpable. HEART: First and second heart sounds are normal; significant edema LUNGS: Respiratory rate increased, decreased breath sounds. ABDOMEN: Soft with distention-, mild tender-on the right side r, liver spleen not palpable, no masses palpable. PSYCH: Answering questions appropriately, but does keep dosing of MUSCULOSKELETAL:No Clubbing/cyanosis;muscles-grossly intact. Some back pain INVESTIGATIONS, reviewed in the clinical context: CT abdomen pelvis [November 30] diffuse apoptotic metastatic disease with hepatomegaly. Mass within the noah hepatis. Anasarca changes. November 30: INR greater than 10 potassium 4.9 BUN 140 creatinine 2.08 November 25: White count 23.1 hemoglobin 8.2 platelets 430 potassium 3.6 BUN 81 creatinine 1.58 AST 201 ALT 68 alkaline phosphatase 1163 November 24: Sodium 137 potassium 4 BUN 81 creatinine 1.99 AST 262 ALT 82 alkaline phosphatase 1159 November 24, 2023: White count 22.5 hemoglobin 9.1 platelets 450 sodium 131 potassium 5.7 BUN 88 creatinine 1.96 AST 353 ALT 96 alkaline phosphatase 1140 am monia 57 Troponin I 1.160 proBNP 1770 EKG tracing personally reviewed by me-normal sinus rhythm. Poor R wave progression. ST-T wave changes. Chest x-ray film personally reviewed by me-possible cardiomegaly Prior lab: November 16: Hemoglobin 8.1 white count 18.9 platelets [address] chest angio for PE:. Cardiomegaly. Hepatic metastasis. Adenopathy. Previous Brain MRI October 17: Unremarkable Liver biopsy-poorly differentiated adenocarcinoma CT abdomen pelvis with contrast October 14: Numerous large liver metastatic foci. Status postcholecystectomy. Low-density mass occupies noah hepatis. Suggestive of biliary or pancreatic primary. Assessment and plan: -Acute metabolic encephalopathy/possible hepatic encephalopathy, delirium. From acute kidney injury, and liver dysfunction: Slow improvement -Acute non-ST elevation IN, type II from hemodynamic mismatch. Patient not a candidate for IV heparin because of already on blood thinners.. No chest pain. Cardiology was consulted from ER. Not for any further intervention, per Dr. Smith who spoke to Dr. Regis Morrison.. - hepatic encephalopathy: Better Lactulose 20 g twice daily -Acute kidney injury possibly combination of prerenal and ATN.: Slow to respond Followed by nephrology -Hyperkalemia secondary to acute kidney injury. Cozaar. Potassium supplement.: Better Hold Cozaar, potassium Renal diet. IV sodium bicarbonate. -Acute pulm embolism underlying metastatic cancer, diagnosed November 16, 2023 Eliquis-now on Pradaxa, that is held -Cholangio-carcinoma poorly differentiated adenocarcinoma. right chest port. MRI brain negative Given fluorouracil, leucovorin -Started on chemotherapy, November [address] Atkins Palliative chemotherapy. Patient is very poor candidate for any chemotherapy because of very poor functional status. Poor oral intake. Not doing well. -Microcytic anemia to include iron deficiency from underlying malignancy and nutritional component from decreased oral intake. Received IV iron previously -Bipolar disorder Abilify-hold. Trazodone. Lamictal -Diabetes mellitus type 2 on oral hypoglycemic Follow Accu-Cheks. Glipizide-hold -Oral mucositis -GERD Protonix -Moderate protein calorie malnutrition decreased oral intake. Ensure -Hypotensive shock: Controlled Grady wrap. Midodrine. Levophed drip -COPD in prior smoker Albuterol as needed -Gastrojejunal bypass 2013 Patient does follow with Dr. Agatha Jaeger -DNR Advance care planning [discussed with patient and the mother and the brother] 90 discussion with the patient mother at the bedside. Patient states she does not want to continue living like this. Patient is severely hypoalbuminemic. Has needed for several days. Recently pulm embolism. Has been on anticoagulation. Third spacing because of low albumin. Blood pressure running low requiring Levophed. Kidney function has been getting worse. Discussion of hospice was brought up. Patient had oftentimes thought of being full code but no confirm she wants to remain DNR. Oncology team will be meeting with the patient and family tomorrow. Hospice may be appropriate. Time spent for this about 25 minutes. Past Medical History Past Medical History: Atrial Flutter, Cancer, Diabetes Mellitus, GERD/Reflux, Hyperlipidemia, Hypertension, Osteoarthritis (OA) Additional Past Medical History / Comment(s): migraines, chronic BACK PAIN. DDD, bulging disks, hx Skin CA. GETS NAUSEA WHEN EATING OFTEN, heart murmer, palpitations, hiatal hernia, constipation, History of Any Multi-Drug Resistant Organisms: None Reported Past Surgical History: Bariatric Surgery, Breast Surgery, Section, Cholecystectomy, Hernia Repair, Orthopedic Surgery, Uterine Ablation Additional Past Surgical History / Comment(s): RT Knee arthroscopy. KAILEY MULT TOES Surgery. Sinus Surgery. Gastric Bypass 2013. kailey Breast biopsy. CERVICAL CONE biopsy. PAIN PROC BACK, kailey eyelid procedure, incisional hernia repair, Past Anesthesia/Blood Transfusion Reactions: Previous Problems w/ Anesthesia, Motion Sickness Additional Past Anesthesia/Blood Transfusion Reaction / Comment(s): Woke up once during anesthesia. Mom has difficulty coming out of anesthesia and low b/p. Past Psychological History: Anxiety, Bipolar, Depression, Panic Disorder Smoking Status: Former smoker Past Alcohol Use History: Occasional Past Drug Use History: None Reported
[2023-12-01] MEDS: IDARUCIZUMAB 2.5 GM in EMPTY BAG 1 BAG IV SCH (21:03)
[2023-12-02 06:29] LABS: Glucose,Whole Blood 233 mg/dL (70-110)
[2023-12-02 06:51] LABS: INR 1.5 (<1.2); Partial Thromboplastin Time 34.5 sec (22.0-30.0); Prothrombin Time 15.8 sec (10.0-12.5)
[2023-12-02 07:05] LABS: ALT 75 U/L (4-34); AST 158 U/L (14-36); African American GFR (CKD) 28 (>60 ml/min/1.73 sqM); Albumin 2.1 g/dL (3.5-5.0); Anion Gap 11 mmol/L; Calcium 7.7 mg/dL (8.4-10.2); Carbon Dioxide 20 mmol/L (22-30); Chloride 111 mmol/L (98-107); Glucose 216 mg/dL (74-99); Non-African American GFR(CKD) 24 (>60 ml/min/1.73 sqM); Phosphorus 6.6 mg/dL (2.5-4.5); Sodium 142 mmol/L (137-145); Total Bilirubin 6.4 mg/dL (0.2-1.3); Total Protein 4.9 g/dL (6.3-8.2); Uric Acid 5.3 mg/dL (3.7-7.4)
[2023-12-02 07:30] LABS: Alkaline Phosphatase 963 U/L (38-126); Blood Urea Nitrogen 139 mg/dL (7-17)
[2023-12-02 07:53] LABS: Anisocytosis Moderate; Basophils # (A) 0.1 k/uL (0-0.2); Basophils % (A) 0 %; Eosinophils # (A) 0.1 k/uL (0-0.7); Eosinophils % (A) 0 %; HCT 21.4 % (34.0-46.0); Hypochromasia Marked; Lymphocytes # (A) 0.8 k/uL (1.0-4.8); Lymphocytes % (A) 2 %; MCH 24.6 pg (25.0-35.0); MCHC 31.4 g/dL (31.0-37.0); MCV 78.4 fL (80.0-100.0); Mean Platelet Volume 10.7; Microcytosis Moderate; Monocytes # (A) 0.3 k/uL (0-1.0); Monocytes % (A) 1 %; Neutrophils # (A) 29.7 k/uL (1.3-7.7); Neutrophils % (A) 96 %; Poikilocytosis Slight; RBC 2.74 m/uL (3.80-5.40)
[2023-12-02 08:00] LABS: HGB 6.7 gm/dL (11.4-16.0)
--- NOTE | 2023-12-02 08:37 | P.PN ---
Subjective Progress Note Date: 12/01/23 Principal diagnosis: Reason for follow-up is sepsis Patient is a 58-year-old female with a past medical history significant for diabetes mellitus hypertension hyperlipidemia atrial flutter and a recent diagnosis of cholangiocarcinoma in this patient presenting to the [facility] with mental status changes patient was noticed to have a hypotension and significant elevated white count concerning for sepsis for the patient was transferred to the ICU infectious disease was consulted. On today's evaluation that is 12/01/2023, patient is afebrile, patient is breathing comfortably and is currently on 3 L current oxygen, patient denies having any chest pain shortness of breath or cough, patient did have some nausea abdominal pain and distention no vomiting has been reported. Patient white count is down to 13.3, creatinine is 2.08 procalcitonin is 4.66 Objective - Vital Signs Vital signs: Vital Signs Temp 97.4 F L 12/01/23 08:00 Pulse 114 H 12/01/23 08:02 Resp 21 12/01/23 08:15 BP 89/61 12/01/23 08:15 Pulse Ox 94 L 12/01/23 08:15 FiO2 Intake & Output 11/30/23 12/01/23 12/01/23 18:59 06:59 18:59 Intake Total 3238.234 749.959 Output Total 265 290 100 Balance 2973.234 459.959 -100 Weight 89 kg 90.4 kg Intake: IV 2000 300 Piperacillin-Tazobactam 3 100 300 .375 gm In Sodium Chloride 0.9% 100 ml @ 25 mls/hr IVPB Q8H [facility] Rx#: [id number] Sodium Chloride 0.9% 1, 900 000 ml @ 100 mls/hr IV . Q10H [facility] Rx#:[id number] Sodium Chloride 0.9% 1, 1000 000 ml @ 999 mls/hr IV . Q1H1M [facility] Rx#:[id number] Intake, IV Titration 408.234 449.959 Amount Norepinephrine 4 mg In 308.234 449.959 Sodium Chloride 0.9% 250 ml @ 0.03 MCG/KG/MIN 9. 487 mls/hr IV .Q24H [facility] Rx#:[id number] Piperacillin-Tazobactam 3 100 .375 gm In Sodium Chloride 0.9% 100 ml @ 25 mls/hr IVPB Q8H [facility] Rx#: [id number] Oral 830 Output: Urine 265 290 100 Other: Voiding Method Indwelling Catheter Indwelling Catheter Indwelling Catheter - Exam GENERAL DESCRIPTION: Middle-age female lying in bed in no distress RESPIRATORY SYSTEM: Unlabored breathing , decreased breath sounds at bases HEART: S1 S2 regular rate and rhythm , ABDOMEN: Soft , mild distention and tenderness EXTREMITIES: No edema feet - Labs CBC & Chem 7: 12/02/23 07:04 12/02/23 06:23 Labs: Abnormal Lab Results - Last 24 Hours (Table) 11/30/23 11/30/23 11/30/23 Range/Units 05:21 05:21 12:59 WBC (3.8-10.6) k/uL RBC (3.80-5.40) m/uL Hgb (11.4-16.0) gm/dL Hct (34.0-46.0) % MCH (25.0-35.0) pg MCHC (31.0-37.0) g/dL RDW (11.5-15.5) % Neutrophils # (1.3-7.7) k/uL Lymphocytes # (1.0-4.8) k/uL Chloride (98-107) mmol/L Carbon Dioxide (22-30) mmol/L BUN >120 H* (7-17) mg/dL Creatinine (0.52-1.04) mg/dL Glucose (74-99) mg/dL POC Glucose (mg/dL) 210 H (70-110) mg/dL Uric Acid 16.4 A* (2.9-7.7) mg/dL Calcium (8.4-10.2) mg/dL Phosphorus (2.5-4.5) mg/dL Magnesium (1.6-2.3) mg/dL Total Bilirubin (0.2-1.3) mg/dL AST (14-36) U/L ALT (4-34) U/L Alkaline Phosphatase (38-126) U/L Total Protein (6.3-8.2) g/dL Albumin (3.5-5.0) g/dL 11/30/23 11/30/23 11/30/23 Range/Units 16:32 16:54 21:01 WBC (3.8-10.6) k/uL RBC (3.80-5.40) m/uL Hgb (11.4-16.0) gm/dL Hct (34.0-46.0) % MCH (25.0-35.0) pg MCHC (31.0-37.0) g/dL RDW (11.5-15.5) % Neutrophils # (1.3-7.7) k/uL Lymphocytes # (1.0-4.8) k/uL Chloride (98-107) mmol/L Carbon Dioxide 19 L (22-30) mmol/L BUN 130 H* (7-17) mg/dL Creatinine 2.28 H (0.52-1.04) mg/dL Glucose 185 H (74-99) mg/dL POC Glucose (mg/dL) 226 H 207 H (70-110) mg/dL Uric Acid (2.9-7.7) mg/dL Calcium 7.9 L (8.4-10.2) mg/dL Phosphorus (2.5-4.5) mg/dL Magnesium (1.6-2.3) mg/dL Total Bilirubin (0.2-1.3) mg/dL AST (14-36) U/L ALT (4-34) U/L Alkaline Phosphatase (38-126) U/L Total Protein (6.3-8.2) g/dL Albumin (3.5-5.0) g/dL 11/30/23 12/01/23 12/01/23 Range/Units 23:56 05:47 05:47 WBC 13.3 H (3.8-10.6) k/uL RBC 3.11 L (3.80-5.40) m/uL Hgb 7.4 L D (11.4-16.0) gm/dL Hct 24.9 L (34.0-46.0) % MCH 23.7 L (25.0-35.0) pg MCHC 29.6 L (31.0-37.0) g/dL RDW 21.5 H (11.5-15.5) % Neutrophils # 12.4 H (1.3-7.7) k/uL Lymphocytes # 0.7 L (1.0-4.8) k/uL Chloride 109 H (98-107) mmol/L Carbon Dioxide 19 L (22-30) mmol/L BUN 130 H* 134 H* (7-17) mg/dL Creatinine 2.41 H 2.25 H (0.52-1.04) mg/dL Glucose 170 H 191 H (74-99) mg/dL POC Glucose (mg/dL) (70-110) mg/dL Uric Acid 12.3 H (2.9-7.7) mg/dL Calcium 8.1 L 7.9 L (8.4-10.2) mg/dL Phosphorus 7.2 H (2.5-4.5) mg/dL Magnesium 2.9 H (1.6-2.3) mg/dL Total Bilirubin 5.0 H (0.2-1.3) mg/dL AST 152 H (14-36) U/L ALT 77 H (4-34) U/L Alkaline Phosphatase 1022 H (38-126) U/L Total Protein 5.2 L (6.3-8.2) g/dL Albumin 2.3 L (3.5-5.0) g/dL 12/01/23 Range/Units 06:31 WBC (3.8-10.6) k/uL RBC (3.80-5.40) m/uL Hgb (11.4-16.0) gm/dL Hct (34.0-46.0) % MCH (25.0-35.0) pg MCHC (31.0-37.0) g/dL RDW (11.5-15.5) % Neutrophils # (1.3-7.7) k/uL Lymphocytes # (1.0-4.8) k/uL Chloride (98-107) mmol/L Carbon Dioxide (22-30) mmol/L BUN (7-17) mg/dL Creatinine (0.52-1.04) mg/dL Glucose (74-99) mg/dL POC Glucose (mg/dL) 230 H (70-110) mg/dL Uric Acid (2.9-7.7) mg/dL Calcium (8.4-10.2) mg/dL Phosphorus (2.5-4.5) mg/dL Magnesium (1.6-2.3) mg/dL Total Bilirubin (0.2-1.3) mg/dL AST (14-36) U/L ALT (4-34) U/L Alkaline Phosphatase (38-126) U/L Total Protein (6.3-8.2) g/dL Albumin (3.5-5.0) g/dL Microbiology - Last 24 Hours (Table) 11/29/23 16:28 Blood Culture - Preliminary Blood Assessment and Plan (1) Sepsis Current Visit: Yes Status: Acute Code(s): A41.9 - SEPSIS, UNSPECIFIED ORGANISM SNOMED Code(s): 24041332 Plan: 1patient with service in this patient who did have a hypotension tachycardia elevated white count, meeting criteria for SIRS with a question of sepsis possible abdominal source and this patient did have history of cholangiocarcinoma with a question of possible cholangitis versus other abdominal pathology as the patient did have abdominal distention and some tenderness 2-we will order CT of abdominal pelvis with oral contrast did show ascities but no abscess or colitis 3-patient white count is 13k , pt will continue with Zosyn 3.375 g every 8 hours and monitor clinical course closely family at bed side questions answered Dictation was produced using [employer] dictation software. please excuse any grammatical, word or spelling errors. Time with Patient: Less than 30
[2023-12-02 08:43] LABS: Platelet Count 91 k/uL (150-450)
[2023-12-02 08:48] LABS: Polychromasia Present
[2023-12-02 08:55] LABS: Howell-Jolly Bodies Present
[2023-12-02 08:56] LABS: Toxic Vacuolation Present
--- NOTE | 2023-12-02 10:32 | P.PN ---
Subjective Patient is seen for follow-up for acute kidney injury. Currently on Levophed. Receiving IV fluids. Nonoliguric. Quite lethargic. Family present at bedside. Vital signs are stable. On vasopressor support. General: No acute distress. HEENT: Head exam is unremarkable. On nasal cannula. LUNGS: No audible rhonchi or wheezes. HEART: Tachycardic. ABDOMEN: Nontender. EXTREMITITES: 2+ edema. Objective - Vital Signs Vital signs: Vital Signs Temp 97.2 F L 12/02/23 08:00 Pulse 112 H 12/02/23 10:15 Resp 28 H 12/02/23 10:15 BP 93/57 12/02/23 10:15 Pulse Ox 90 L 12/02/23 09:00 FiO2 Intake & Output 12/01/23 12/02/23 12/02/23 18:59 06:59 18:59 Intake Total 1104 1254 300 Output Total 400 775 300 Balance 704 479 0 Weight 90 kg Intake: IV 850 1000 300 Piperacillin-Tazobactam 3 100 100 .375 gm In Sodium Chloride 0.9% 100 ml @ 25 mls/hr IVPB Q8H [facility] Rx#: [id number] Sodium Chloride 0.9% 1, 750 900 300 000 ml @ 75 mls/hr IV . [id number] [facility] Rx#:[id number] Intake, IV Titration 254 254 Amount Norepinephrine 4 mg In 254 254 Sodium Chloride 0.9% 250 ml @ 0.03 MCG/KG/MIN 9. 487 mls/hr IV .Q24H [facility] Rx#:[id number] Output: Urine 400 775 300 Other: Voiding Method Indwelling Catheter Indwelling Catheter Indwelling Catheter - Labs CBC & Chem 7: 12/02/23 07:04 12/02/23 06:23 Labs: Abnormal Lab Results - Last 24 Hours (Table) 12/01/23 12/01/23 12/01/23 Range/Units 12:14 15:19 17:00 WBC (3.8-10.6) k/uL RBC (3.80-5.40) m/uL Hgb (11.4-16.0) gm/dL Hct (34.0-46.0) % MCV (80.0-100.0) fL MCH (25.0-35.0) pg RDW (11.5-15.5) % Plt Count (150-450) k/uL Neutrophils # (1.3-7.7) k/uL Lymphocytes # (1.0-4.8) k/uL PT (10.0-12.5) sec INR (<1.2) APTT (22.0-30.0) sec Chloride 109 H (98-107) mmol/L Carbon Dioxide 17 L (22-30) mmol/L BUN 140 H* (7-17) mg/dL Creatinine 2.08 H (0.52-1.04) mg/dL Glucose 174 H (74-99) mg/dL POC Glucose (mg/dL) 238 H (70-110) mg/dL Uric Acid 9.6 H (3.7-7.4) mg/dL Calcium 8.0 L (8.4-10.2) mg/dL Phosphorus (2.5-4.5) mg/dL Total Bilirubin (0.2-1.3) mg/dL AST (14-36) U/L ALT (4-34) U/L Alkaline Phosphatase (38-126) U/L Total Protein (6.3-8.2) g/dL Albumin (3.5-5.0) g/dL 12/01/23 12/01/23 12/02/23 Range/Units 17:07 19:58 06:23 WBC (3.8-10.6) k/uL RBC (3.80-5.40) m/uL Hgb (11.4-16.0) gm/dL Hct (34.0-46.0) % MCV (80.0-100.0) fL MCH (25.0-35.0) pg RDW (11.5-15.5) % Plt Count (150-450) k/uL Neutrophils # (1.3-7.7) k/uL Lymphocytes # (1.0-4.8) k/uL PT >130.0 H (10.0-12.5) sec INR >10.0 H* (<1.2) APTT 105.0 H* (22.0-30.0) sec Chloride 111 H (98-107) mmol/L Carbon Dioxide 20 L (22-30) mmol/L BUN 139 H* (7-17) mg/dL Creatinine 2.18 H (0.52-1.04) mg/dL Glucose 216 H (74-99) mg/dL POC Glucose (mg/dL) 218 H (70-110) mg/dL Uric Acid (3.7-7.4) mg/dL Calcium 7.7 L (8.4-10.2) mg/dL Phosphorus 6.6 H (2.5-4.5) mg/dL Total Bilirubin 6.4 H (0.2-1.3) mg/dL AST 158 H (14-36) U/L ALT 75 H (4-34) U/L Alkaline Phosphatase 963 H (38-126) U/L Total Protein 4.9 L (6.3-8.2) g/dL Albumin 2.1 L (3.5-5.0) g/dL 12/02/23 12/02/23 12/02/23 Range/Units 06:23 06:28 07:04 WBC 31.0 H (3.8-10.6) k/uL RBC 2.74 L (3.80-5.40) m/uL Hgb 6.7 L* (11.4-16.0) gm/dL Hct 21.4 L (34.0-46.0) % MCV 78.4 L (80.0-100.0) fL MCH 24.6 L (25.0-35.0) pg RDW 22.0 H (11.5-15.5) % Plt Count 91 L D (150-450) k/uL Neutrophils # 29.7 H (1.3-7.7) k/uL Lymphocytes # 0.8 L (1.0-4.8) k/uL PT 15.8 H (10.0-12.5) sec INR 1.5 H (<1.2) APTT 34.5 H (22.0-30.0) sec Chloride (98-107) mmol/L Carbon Dioxide (22-30) mmol/L BUN (7-17) mg/dL Creatinine (0.52-1.04) mg/dL Glucose (74-99) mg/dL POC Glucose (mg/dL) 233 H (70-110) mg/dL Uric Acid (3.7-7.4) mg/dL Calcium (8.4-10.2) mg/dL Phosphorus (2.5-4.5) mg/dL Total Bilirubin (0.2-1.3) mg/dL AST (14-36) U/L ALT (4-34) U/L Alkaline Phosphatase (38-126) U/L Total Protein (6.3-8.2) g/dL Albumin (3.5-5.0) g/dL Microbiology - Last 24 Hours (Table) 11/29/23 16:28 Blood Culture - Preliminary Blood Assessment and Plan Assessment: 1. Acute kidney injury, ATN secondary to hypotension. Renal function stable. Creatinine 2.18 today. UA is benign. 2. Metastatic cholangiocarcinoma. Oncology following. Has received chemo therapy. 3. History of CHF with preserved ejection fraction. 4. Volume overload. Partially third spacing from hypoalbuminemia. 5. Hyperkalemia associated with acute kidney injury and metabolic acidosis. Also concern for tumor lysis. Stable. 6. History of bipolar disorder 7. Shock maintained on Levophed. 8. Metabolic acidosis secondary to acute kidney injury and IV fluids. On oral bicarb. Improved. 9. Hyperphosphatemia secondary to acute kidney injury. Also uric acid noted to be elevated along with hyperkalemia concerning for tumor lysis. Status post rasburicasex2. Oncology following. Plan: Decrease rate of IV fluids. Repeat IV Lasix 40 mg if urine output drops to below 30 cc an hour for 3 hours. Wean Levophed. Maintain midodrine. Cortisol level 16.4 (not low). Continue to monitor renal function and urine output. Elevated BUN secondary to catabolic state. Not on steroids. Questionable GI bleed as hemoglobin did drop. Concern for DIC with coagulopathy. Receiving unit of blood today. Continue to assess daily for need for renal placement therapy. Patient not an ideal candidate due to underlying malignancy and hemodynamic instability. Discussed case with oncology as well as family present at bedside. Family meeting with oncology scheduled for today. Hospice being considered. Prognosis guarded.
--- NOTE | 2023-12-02 12:25 | P.PN ---
Subjective Progress Note Date: 12/02/23 Principal diagnosis: Hypotension secondary to dehydration with sepsis, and possible septic shock This is a 58-year-old female patient with a known history of chronic obstructive pulmonary disease, chronic tobacco dependence, atrial flutter, diabetes mellitus type 2 hypertension, hyperlipidemia bipolar disorder. She also has a recent diagnosis of cholangiocarcinoma with metastasis. She was to be initiated on cisplatin/Gemzar/Imfinzi however the patient has had recent multiple admissions delaying her treatment. She was readmitted here again on 11/24/2023 with shortness of breath and right sided abdominal pain. She was seen and evaluated by medical oncology who initiated the patient on FOLFOX. Today she had developed hypotension with mean arterial pressures in the 50s. She was subsequently transferred to the intensive care unit we are consulted for the same. She is seen in the ICU awake and alert in no acute distress. She is maintaining O2 saturations in the 90s on 3 L/min per nasal cannula. She is weak. She is afebrile. Chest x-ray is showing improvement in the pulmonary venous congestion. Blood cultures and procalcitonin level pending. Urinalysis revealing turbid urine with high WBCs and occasional bacteria. Culture pending. White count 28.2. Hemoglobin 9.9. Platelets 375. Sodium 137. Potassium 4.1. Bicarb 21. BUN 97. Creatinine 1.68. Glucose 157. AST 242. ALT 78. Alk phos 1164. On normal saline at 100 mL/h. Patient was today on 11/30/2023, remains hypotensive requiring norepinephrine at 0.1 mcg/kg/min, her IV fluid is 100 cc/h, patient received few fluid boluses, and does not seem to be making significant improvement. Hence more fluids will be given and will hold diuretics for now. She is on 3 L nasal cannula, saturating at 98%, blood pressure during my evaluation was 89/56 with mean arterial pressure of 69 temperature is 97.3. Patient is noted to have worsening leukocytosis with WBC of 16.2 hemoglobin 8.9. Electrolytes are normal bicarb is 18 creatinine is 2.22 slightly worse today compared to yesterday. Clinically the patient seems to be dehydrated and definitely needs more fluid boluses in the meantime we will continue her norepinephrine. Chest x-ray shows no evidence of pneumonia, and no evidence of pulmonary edema. Procalcitonin level is 4.66, and her serum cortisol level is normal. Urine output remains extremely poor and marginal, if no improvement with fluid boluses, patient could be considered for possible trial of diuretics although hoping to avoid diuretics because of her borderline blood pressure and relative hypotension requiring norepinephrine. Patient was seen and today on 12/01/2023, patient remains relatively hypotensive requiring norepinephrine at 0.14 mcg/kg/min IV fluid is running at 100 cc an hour, patient received multiple fluid boluses yesterday, and her urine output did not leaf size picker much. Patient had her dose of midodrine increased to 15 mg 3 times daily remains with very marginal low blood pressure. Yesterday after multiple fluid boluses and the patient continued to have poor urine output, she was given a dose of Lasix 60 mg IV push, today she has a urine output of 30 to 40 cc/h. Her uric acid was noted to be high yesterday, and she received rasburicase. She may have a picture of tumor lysis syndrome. Nephrology remains on board, possibility of renal replacement is being considered, but she is not at that point yet. Patient is on 3 L nasal cannula chest x-ray showed minimal prominence of the pulmonary vasculature. Remains on Diflucan, Zosyn, Pradaxa, nystatin, and her midodrine dose was increased. Patient feels generally weak, continues to have some vague abdominal pain. Blood cultures remain negative WBC count 13.3 hemoglobin 7.4 electrolytes are normal bicarb is 22 BUN is 134 creatinine down to 2.25 from 2.41 yesterday. Enzymes are a bit el evated, alkaline phosphatase is 1022. CT of abdomen and pelvis showed mostly bibasilar atelectasis and small effusions on the chest x-ray, there is evidence of diffuse hepatic metastatic disease with hepatomegaly. There is a conglomerate mass within the noah hepatis anasarca with mild ascites is noted. Patient was seen and examined today on 12/02/2023, remains in the ICU, patient developed epistaxis yesterday, and her coag profile was quite abnormal with significantly elevated pro time, PTT, INR, patient received vitamin K, her coags are much better today compared to yesterday, and her epistaxis has resolved. Nonetheless patient remains on norepinephrine at 0.14 mcg/kg/min IV fluid at 75 cc/h. Remains on Diflucan and Zosyn. Patient remains marginal at best. Hemoglobin today is down to 6.7 WBC count is up to 31,000, patient is being followed by hematology/oncology. INR is down to 1.5 PTT is down to 34 fibrinogen remains at 360 renal profile is basically the same today with slight worsening of creatinine up to 2.18 from 2.08 yesterday.Liver enzymes remain elevated including alkaline phosphatase of 963 AST of [address] of abdomen pelvis yesterday was reviewed patient has diffuse hepatic metastatic disease with hepatomegaly, there is a conglomerate mass within the noah hepatis there is also anasarca changes in the abdomen. And basilar atelectasis with small effusions Objective - Vital Signs Vital signs: Vital Signs Temp 97.2 F L 12/02/23 08:00 Pulse 112 H 12/02/23 10:15 Resp 28 H 12/02/23 10:15 BP 93/57 12/02/23 10:15 Pulse Ox 90 L 12/02/23 09:00 FiO2 Intake & Output 12/01/23 12/02/23 12/02/23 18:59 06:59 18:59 Intake Total 1104 1254 300 Output Total 400 775 300 Balance 704 479 0 Weight 90 kg Intake: IV 850 1000 300 Piperacillin-Tazobactam 3 100 100 .375 gm In Sodium Chloride 0.9% 100 ml @ 25 mls/hr IVPB Q8H [facility] Rx#: [id number] Sodium Chloride 0.9% 1, 750 900 300 000 ml @ 75 mls/hr IV . [id number] [facility] Rx#:[id number] Intake, IV Titration 254 254 Amount Norepinephrine 4 mg In 254 254 Sodium Chloride 0.9% 250 ml @ 0.03 MCG/KG/MIN 9. 487 mls/hr IV .Q24H [facility] Rx#:[id number] Output: Urine 400 775 300 Other: Voiding Method Indwelling Catheter Indwelling Catheter Indwelling Catheter - Exam GENERAL EXAM: Alert, weak, 58-year-old female, on 3 L nasal cannula, O2 saturation 93% HEAD: Normocephalic. EYES: Normal reaction of pupils, equal size. NOSE: Clear with pink turbinates. THROAT: No erythema or exudates. NECK: No masses, no JVD. CHEST: No chest wall deformity. LUNGS: Diminished breath sounds at the bases no rhonchi no wheezing CVS: S1 and S2 normal with no audible murmur, regular rhythm. ABDOMEN: Slightly tender right upper quadrant, normal bowel sounds, no tender ness in the right lower quadrant, no rebound no guarding SKIN: No rashes CENTRAL NERVOUS SYSTEM: Alert and oriented x 3 no gross focal neurologic deficit EXTREMITIES: No clubbing, 1+ bipedal edema, no cyanosis - Labs CBC & Chem 7: 12/02/23 07:04 12/02/23 06:23 Labs: Abnormal Lab Results - Last 24 Hours (Table) 12/01/23 12/01/23 12/01/23 Range/Units 15:19 17:00 17:07 WBC (3.8-10.6) k/uL RBC (3.80-5.40) m/uL Hgb (11.4-16.0) gm/dL Hct (34.0-46.0) % MCV (80.0-100.0) fL MCH (25.0-35.0) pg RDW (11.5-15.5) % Plt Count (150-450) k/uL Neutrophils # (1.3-7.7) k/uL Lymphocytes # (1.0-4.8) k/uL PT >130.0 H (10.0-12.5) sec INR >10.0 H* (<1.2) APTT 105.0 H* (22.0-30.0) sec Chloride 109 H (98-107) mmol/L Carbon Dioxide 17 L (22-30) mmol/L BUN 140 H* (7-17) mg/dL Creatinine 2.08 H (0.52-1.04) mg/dL Glucose 174 H (74-99) mg/dL POC Glucose (mg/dL) (70-110) mg/dL Uric Acid 9.6 H (3.7-7.4) mg/dL Calcium 8.0 L (8.4-10.2) mg/dL Phosphorus (2.5-4.5) mg/dL Total Bilirubin (0.2-1.3) mg/dL AST (14-36) U/L ALT (4-34) U/L Alkaline Phosphatase (38-126) U/L Total Protein (6.3-8.2) g/dL Albumin (3.5-5.0) g/dL 12/01/23 12/02/23 12/02/23 Range/Units 19:58 06:23 06:23 WBC (3.8-10.6) k/uL RBC (3.80-5.40) m/uL Hgb (11.4-16.0) gm/dL Hct (34.0-46.0) % MCV (80.0-100.0) fL MCH (25.0-35.0) pg RDW (11.5-15.5) % Plt Count (150-450) k/uL Neutrophils # (1.3-7.7) k/uL Lymphocytes # (1.0-4.8) k/uL PT 15.8 H (10.0-12.5) sec INR 1.5 H (<1.2) APTT 34.5 H (22.0-30.0) sec Chloride 111 H (98-107) mmol/L Carbon Dioxide 20 L (22-30) mmol/L BUN 139 H* (7-17) mg/dL Creatinine 2.18 H (0.52-1.04) mg/dL Glucose 216 H (74-99) mg/dL POC Glucose (mg/dL) 218 H (70-110) mg/dL Uric Acid (3.7-7.4) mg/dL Calcium 7.7 L (8.4-10.2) mg/dL Phosphorus 6.6 H (2.5-4.5) mg/dL Total Bilirubin 6.4 H (0.2-1.3) mg/dL AST 158 H (14-36) U/L ALT 75 H (4-34) U/L Alkaline Phosphatase 963 H (38-126) U/L Total Protein 4.9 L (6.3-8.2) g/dL Albumin 2.1 L (3.5-5.0) g/dL 12/02/23 12/02/23 Range/Units 06:28 07:04 WBC 31.0 H (3.8-10.6) k/uL RBC 2.74 L (3.80-5.40) m/uL Hgb 6.7 L* (11.4-16.0) gm/dL Hct 21.4 L (34.0-46.0) % MCV 78.4 L (80.0-100.0) fL MCH 24.6 L (25.0-35.0) pg RDW 22.0 H (11.5-15.5) % Plt Count 91 L D (150-450) k/uL Neutrophils # 29.7 H (1.3-7.7) k/uL Lymphocytes # 0.8 L (1.0-4.8) k/uL PT (10.0-12.5) sec INR (<1.2) APTT (22.0-30.0) sec Chloride (98-107) mmol/L Carbon Dioxide (22-30) mmol/L BUN (7-17) mg/dL Creatinine (0.52-1.04) mg/dL Glucose (74-99) mg/dL POC Glucose (mg/dL) 233 H (70-110) mg/dL Uric Acid (3.7-7.4) mg/dL Calcium (8.4-10.2) mg/dL Phosphorus (2.5-4.5) mg/dL Total Bilirubin (0.2-1.3) mg/dL AST (14-36) U/L ALT (4-34) U/L Alkaline Phosphatase (38-126) U/L Total Protein (6.3-8.2) g/dL Albumin (3.5-5.0) g/dL Microbiology - Last 24 Hours (Table) 11/29/23 16:28 Blood Culture - Preliminary Blood Assessment and Plan Assessment: Impression: Hypotension secondary to dehydration and possible underlying infection, blood cultures have been negative Leukocytosis secondary to above Diffuse metastatic disease involving the liver Microcytic anemia Acute kidney injury, secondary to hypotension, sepsis, dehydration, and again possible septic shock. Transaminitis Recent diagnosis of metastatic cholangiocarcinoma unable to be initiated on cisplatin/Gemzar/Imfinzi due to frequent readmissions. Received FOLFOX on this admission November 25 and , diffuse liver metastasis noted Anasarca secondary to above Acute on chronic abdominal pain secondary to above Recent PE/DVT, on Pradaxa due to GAYLA metastatic bilateral pulmonary nodules Hyperlipidemia History of diastolic congestive heart failure Diabetes mellitus 40-pack year smoking history Possible tumor lysis syndrome with hyperuricemia, patient received rasburicase, uric acid today is down to 5.3. Elevated pro time/acute coagulopathy secondary to metastatic disease to the liver Recommendation: Continue to monitor the patient in the ICU Continue antibiotics/Zosyn Continue to monitor strictly I's and O's. Continue hemodynamic support and titrate norepinephrine/accordingly Titrate FiO2 accordingly Procalcitonin was noted to be quite elevated cultures are nondiagnostic so far. Patient remains critically ill., Remains on pressors still requires ICU stay Will continue to monitor in the ICU Critical care time is over 30 minutes Time with Patient: Greater than 30
[2023-12-02] MEDS: MORPHINE SULFATE 4 MG/ML SYRINGE IVP PRN (13:28)
[2023-12-02] MEDS: LORazepam 2 MG/ML INJ IV PRN (13:28)
[2023-12-02] MEDS ORDERED: MORPHINE CONC SOLN 10mg/0.5mL ORAL SYRG PO PRN (13:33)
[2023-12-02] MEDS ORDERED: LORazepam 0.5 MG TAB PO PRN (13:35)
[2023-12-02] MEDS ORDERED: MORPHINE ORAL SOLN 10 MG/5 ML CUP PO PRN (13:37)
--- NOTE | 2023-12-02 15:27 | P.PN ---
Subjective Progress Note Date: 12/02/23 Principal diagnosis: cholangiocarcinoma Yesterday, coags were significantly elevated. She had epistaxis and bleeding in her mouth. Pradaxa was held, Vit K and Praxbind given. INR 1.5 today, with no reported epsiodes of acute bleeding today Patient remains in ICU. BP remains soft, in 80-90s. Patient is lethargic and very weak. Family meeting was held today with patient, mother and 2 brothers to discuss goals of care Objective - Vital Signs Vital signs: Vital Signs Temp 97.2 F L 12/02/23 08:00 Pulse 112 H 12/02/23 10:15 Resp 28 H 12/02/23 10:15 BP 93/57 12/02/23 10:15 Pulse Ox 90 L 12/02/23 09:00 FiO2 Intake & Output 12/01/23 12/02/23 12/02/23 18:59 06:59 18:59 Intake Total 1104 1254 300 Output Total 400 775 300 Balance 704 479 0 Weight 90 kg Intake: IV 850 1000 300 Piperacillin-Tazobactam 3 100 100 .375 gm In Sodium Chloride 0.9% 100 ml @ 25 mls/hr IVPB Q8H [facility] Rx#: [id number] Sodium Chloride 0.9% 1, 750 900 300 000 ml @ 75 mls/hr IV . [id number] [facility] Rx#:[id number] Intake, IV Titration 254 254 Amount Norepinephrine 4 mg In 254 254 Sodium Chloride 0.9% 250 ml @ 0.03 MCG/KG/MIN 9. 487 mls/hr IV .Q24H [facility] Rx#:[id number] Output: Urine 400 775 300 Other: Voiding Method Indwelling Catheter Indwelling Catheter Indwelling Catheter - Constitutional General appearance: Present: no acute distress - EENT Eyes: Present: scleral icterus - Respiratory Details: breathing mildly labored - Cardiovascular Details: skin warm and dry - Integumentary Integumentary: Present: jaundiced - Musculoskeletal Musculoskeletal: Present: generalized weakness - Psychiatric Psychiatric Comment(s): lethargic - Labs CBC & Chem 7: 12/02/23 07:04 12/02/23 06:23 Labs: Abnormal Lab Results - Last 24 Hours (Table) 12/01/23 12/01/23 12/01/23 Range/Units 12:14 15:19 17:00 WBC (3.8-10.6) k/uL RBC (3.80-5.40) m/uL Hgb (11.4-16.0) gm/dL Hct (34.0-46.0) % MCV (80.0-100.0) fL MCH (25.0-35.0) pg RDW (11.5-15.5) % Plt Count (150-450) k/uL Neutrophils # (1.3-7.7) k/uL Lymphocytes # (1.0-4.8) k/uL PT (10.0-12.5) sec INR (<1.2) APTT (22.0-30.0) sec Chloride 109 H (98-107) mmol/L Carbon Dioxide 17 L (22-30) mmol/L BUN 140 H* (7-17) mg/dL Creatinine 2.08 H (0.52-1.04) mg/dL Glucose 174 H (74-99) mg/dL POC Glucose (mg/dL) 238 H (70-110) mg/dL Uric Acid 9.6 H (3.7-7.4) mg/dL Calcium 8.0 L (8.4-10.2) mg/dL Phosphorus (2.5-4.5) mg/dL Total Bilirubin (0.2-1.3) mg/dL AST (14-36) U/L ALT (4-34) U/L Alkaline Phosphatase (38-126) U/L Total Protein (6.3-8.2) g/dL Albumin (3.5-5.0) g/dL 12/01/23 12/01/23 12/02/23 Range/Units 17:07 19:58 06:23 WBC (3.8-10.6) k/uL RBC (3.80-5.40) m/uL Hgb (11.4-16.0) gm/dL Hct (34.0-46.0) % MCV (80.0-100.0) fL MCH (25.0-35.0) pg RDW (11.5-15.5) % Plt Count (150-450) k/uL Neutrophils # (1.3-7.7) k/uL Lymphocytes # (1.0-4.8) k/uL PT >130.0 H (10.0-12.5) sec INR >10.0 H* (<1.2) APTT 105.0 H* (22.0-30.0) sec Chloride 111 H (98-107) mmol/L Carbon Dioxide 20 L (22-30) mmol/L BUN 139 H* (7-17) mg/dL Creatinine 2.18 H (0.52-1.04) mg/dL Glucose 216 H (74-99) mg/dL POC Glucose (mg/dL) 218 H (70-110) mg/dL Uric Acid (3.7-7.4) mg/dL Calcium 7.7 L (8.4-10.2) mg/dL Phosphorus 6.6 H (2.5-4.5) mg/dL Total Bilirubin 6.4 H (0.2-1.3) mg/dL AST 158 H (14-36) U/L ALT 75 H (4-34) U/L Alkaline Phosphatase 963 H (38-126) U/L Total Protein 4.9 L (6.3-8.2) g/dL Albumin 2.1 L (3.5-5.0) g/dL 12/02/23 12/02/23 12/02/23 Range/Units 06:23 06:28 07:04 WBC 31.0 H (3.8-10.6) k/uL RBC 2.74 L (3.80-5.40) m/uL Hgb 6.7 L* (11.4-16.0) gm/dL Hct 21.4 L (34.0-46.0) % MCV 78.4 L (80.0-100.0) fL MCH 24.6 L (25.0-35.0) pg RDW 22.0 H (11.5-15.5) % Plt Count 91 L D (150-450) k/uL Neutrophils # 29.7 H (1.3-7.7) k/uL Lymphocytes # 0.8 L (1.0-4.8) k/uL PT 15.8 H (10.0-12.5) sec INR 1.5 H (<1.2) APTT 34.5 H (22.0-30.0) sec Chloride (98-107) mmol/L Carbon Dioxide (22-30) mmol/L BUN (7-17) mg/dL Creatinine (0.52-1.04) mg/dL Glucose (74-99) mg/dL POC Glucose (mg/dL) 233 H (70-110) mg/dL Uric Acid (3.7-7.4) mg/dL Calcium (8.4-10.2) mg/dL Phosphorus (2.5-4.5) mg/dL Total Bilirubin (0.2-1.3) mg/dL AST (14-36) U/L ALT (4-34) U/L Alkaline Phosphatase (38-126) U/L Total Protein (6.3-8.2) g/dL Albumin (3.5-5.0) g/dL Microbiology - Last 24 Hours (Table) 11/29/23 16:28 Blood Culture - Preliminary Blood Assessment and Plan (1) Cholangiocarcinoma Current Visit: Yes Status: Acute Priority: High Code(s): C22.1 - INTRAHEPATIC BILE DUCT CARCINOMA SNOMED Code(s): 894558269 (2) Dehydration Current Visit: Yes Status: Acute Code(s): E86.0 - DEHYDRATION SNOMED Code( s): 50486509 (3) NSTEMI (non-ST elevated myocardial infarction) Current Visit: Yes Status: Acute Priority: High Code(s): I21.4 - NON-ST ELEVATION (NSTEMI) MYOCARDIAL INFARCTION SNOMED Code(s): 62394005 (4) Renal insufficiency Current Visit: Yes Status: Acute Priority: High Code(s): N28.9 - DISORDER OF KIDNEY AND URETER, UNSPECIFIED SNOMED Code(s): 852095147 (5) Abdominal pain Current Visit: Yes Status: Acute Priority: High Code(s): R10.9 - UNSPECIFIED ABDOMINAL PAIN SNOMED Code(s): 01394058 (6) Transaminitis Current Visit: Yes Status: Acute Priority: High Code(s): R74.01 - ELEVATION OF LEVELS OF LIVER TRANSAMINASE LEVELS SNOMED Code(s): 832799927 (7) Coagulopathy Current Visit: Yes Status: Acute Priority: High Code(s): D68.9 - COAGULATION DEFECT, UNSPECIFIED SNOMED Code(s): 88090564 Plan: Metastatic cholangiocarcinoma -Diagnosis and plan of care as dictated in consult -Plan was to start the first cycle of palliative chemotherapy with cisplatin/Gemzar/Imfinzi on 11/26/2023, however treatment has had multiple delays due to 3 admissions in the past month -She has had progressive weakness and worsening liver function concerning for disease progression of cholangiocarcinoma -She was started on cycle 1, day 1 of FOLFOX on the evening of 11/26/2023, completed on 11/27 Iron deficiency anemia -Was diagnosed in September 2023 when she was diagnosed with cholangiocarcinoma -Received 4 rounds of IV iron inpatient at that time -Repeat iron studies obtained noted iron saturation of 21.92% with ferritin of 1944 -Given the iron saturation above 20%, we will hold on additional IV iron at this time Coagulopathy: Coags yesterday were significantly elevated. Fibrinogen normal, 387. Plt 206,000. Patient was having epistaxis and bleeding in her mouth -Pradaxa was held. Vit K and Praxbind given. -INR 1.5 today, with no reported episodes of acute bleeding today GAYLA -Initially improved, but worsening kidney function over the last couple days. -Diuretics and antihypertensives were held along with midodrine 3 times daily started -I was concerned about hepatorenal syndrome given her worsening liver function secondary to progressive cholangiocarcinoma -Due to persisting hypotension, c/o dizziness, lasix held. 500cc albumin infusion given and octreotide TID started -Pt has since been transferred to ICU and is currently on Levophed, BP maintaining in 80/90s systolically -Concern for TLS, uric acid 16.4. S/p 2 doses Elitek. Uric acid now normal. Continue to monitor TLS labs -Continue to follow nephrology recommendations, appreciate their assistance Mucositis: -Oral hygiene daily -Salt and soda rinses and Kools soln ordered Recent PE/DVT -Due to GAYLA, will start Pradaxa 75mg BID. -Continue to monitor kidney function. Will plan to start Pradaxa 150mg BID once kidney function acutely recovered *Family meeting held today with patient, mother, and 2 brothers to discuss goals of care. Unfortunately, patient's condition has continued to decline and her prognosis is very poor. We discussed that she is not a candidate for further chemo at this time, and we recommended comfort care measures. Patient and family were agreeable to the same. All questions and concerns were addressed Hospice consult has been placed, and they plan to meet with patient and family l ater today attests: I have seen and examined patient, performed H&P, developed impression and plan of care. Discussed with dictator. Agree with documentation, dictated as a scribe
--- NOTE | 2023-12-02 16:25 | P.PN ---
Progress Note - Text Progress Note Date: 12/02/23 Chief Complaint: Tired short of breath This is a 58-year-old patient, follows Dr. Rincon. Chronic stable medical conditions include GERD, diabetes, hypertension, hyperlipidemia, osteoarthritis, hiatal hernia. Gastrojejunal gastric bypass in 2013. CHF with preserved EF October 11, 2023:, by Dr. Hooks: EGD with rigid dilator 57 Malay to address lower esophageal sphincter and esophageal dysmotility.. 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 Port was placed recently. - oncologist Dr. Calin Atkins. Patient was discharged from the hospital last week following admission for congestive heart failure exacerbation with preserved ejection fraction. Also has some ascites but not felt to be enough for paracentesis. Patient is due to start chemotherapy shortly. Patient recently was admitted with CHF with preserved EF exacerbation. Subsequently was in the hospital from November 15 through November 18 with PE. Discharged on Eliquis. Just prior to leaving patient had decided to become DNR. Patient now presents feeling increasing short of breath. Tired. Decreased appetite. Not ambulating much. Decreased oral intake. In the ER troponin was 1.1. Patient denies any chest pain. Dr. Smith had spoken to the real estate legal assistant Dr. Regis Morrison. Not for any further intervention. Patient denies any cough. Just tired. November 24: Patient was seen this afternoon. Mother at the bedside. Patient more awake today. Tired. Decreased appetite. Discussed. Patient today wants to go back to being a full code. Oncology ordered patient to receive fluorouracil. And leucovorin. Patient initial symptoms felt to be combination of r acute kidney injury and hepatic encephalopathy. Patient remains on lactulose November 25: Sitting up in bed. Mother at the bedside. Following medication changes being done. Dilaudid is being discontinued. Will give Tylenol 3 as needed during daytime. [place] to continue at night. Lipitor Abilify continues to remain off. Patient is on Pradaxa instead of Eliquis. On Diflucan for oral candidiasis. On chemo agents per oncology. Slight improvement in hepatic numbers 11/26. Patient seen and examined. Vital signs this morning the patient had 74, heart rate of 100, blood pressure 103/68. Blood work done this morning showed WBC 25.5, hemoglobin 8.6, platelet count 407, sodium 132, potassium 4, BUN 18, creatinine 1.62. Complaining of weakness. Complaining of shortness of breath on exertion 11/27. Patient seen and examined. Complaining of difficulty in swallowing, states her mouth is very dry. Complaining of abdominal pain 11/29/2023 Patient is seen in follow-up today and is lethargic but arousable. Patients blood pressures have been low and now receiving midodrine and remains in the low 80's. Patient appears to have a septic picture and will consult pulmonary and ID and appreciate input and recommendations. Patient is reporting weakness, lightheadedness, with dizziness even sitting in the bed. Patient is significantly weak and may require ICU for closer monitoring. 11/30/2023 Patient is seen and evaluated in follow-up this morning in the ICU as she was transferred here for hypotension requiring pressor support. Patient remains on Levophed and also midodrine which is being increased per nephrology. Patient with multiple medical consultations following including oncology and infectious disease as there was concern for sepsis. White count was significantly elevated prior to transfer to the ICU and is trending down nicely and currently at 16.2. Patient is afebrile and hemoglobin is stable at 8.9. Kidney functions remain elevated and nephrology is following making adjustments. Current creatinine is 2.41 with a BUN of 130, sodium is 138 potassium is 4.8. Preliminary blood cultures are negative at this time. December 01, 2023: ICU. Patient's mother and brother at the bedside. Up in a recliner. Tired. Keeps dozing off. Significant edema. Some abdominal distention. Patient on Levophed. Lengthy discussion about CODE STATUS with the patient the mother and the brother. Patient prognosis is guarded. Patient had barely been eating for quite some time now. Renal function has not really improved. Not a candidate for dialysis because of low blood pressure. Otherwise overall patient not doing well. Patient confirmed that she is going to be a DNR. Because she did not want to be full code at some point. I did also talk about hospice. They will discuss this further. Prognosis very guarded. Patient's code mucositis with slight bleeding and discomfort in the mouth. December 01: ICU. Dr. Jarvis Marino spoke to the patient and family this morning. They have decided to proceed with hospice. Patient was sitting down with her boyfriend. Somewhat tired. Agrees to go for hospice. Had a meeting with patient's mother patient's brother's and people from [facility]. Lengthy discussion. This point patient will be going home with hospice. Arrangements are being made for tomorrow. Questions answered. Mor phine and Ativan is being used for symptom control. Patient is eating small amounts. Time spent about 50 minutes with over 30 minutes of discussion Active Medications Acetaminophen/Codeine Phosphate (Acetaminophen-Codeine 300-30mg Tab) 1 each PO Q8HR PRN PRN Reason: Pain Last Admin: 12/02/23 10:20 Dose: 1 each Hydrocodone Bitart/Acetaminophen (Hydrocodone/Apap 5-325mg 1 Each Tab) 1 each PO HS [facility] Last Admin: 12/01/23 20:43 Dose: 1 each Albuterol Sulfate (Albuterol Nebulized 2.5 Mg/3 Ml) 2.5 mg INHALATION RT-Q6H PRN PRN Reason: Shortness Of Breath Last Admin: 12/01/23 08:02 Dose: 2.5 mg Aripiprazole (Aripiprazole 5 Mg Tab) 2.5 mg PO DAILY [facility] Last Admin: 12/02/23 08:42 Dose: 2.5 mg Al Hydroxide/Mg Hydroxide 30 ml/ Diphenhydramine HCl 75 mg/Lidocaine HCl 30 ml/Dexamethasone Sodium Phosphate 36 mg 0 ml PO QID [facility] Last Admin: 12/02/23 14:34 Dose: Not Given Fluconazole (Fluconazole 100 Mg Tab) 50 mg PO DAILY [facility]; Protocol Last Admin: 12/02/23 08:42 Dose: 50 mg Sodium Chloride (Saline 0.9%) 1,000 mls @ 75 mls/hr IV .[id number] [facility] Last Admin: 12/02/23 14:35 Dose: Not Given Norepinephrine Bitartrate 4 mg (/ Sodium Chloride) 254 mls @ 9.487 mls/hr IV .Q24H [facility]; Protocol Last Admin: 12/02/23 06:25 Dose: 0.14 mcg/kg/min, 44.272 mls/hr Piperacillin Sod/Tazobactam (Sod 3.375 gm/ Sodium Chloride) 100 mls @ 25 mls/hr IVPB Q8H [facility]; Protocol Last Admin: 12/02/23 14:34 Dose: Not Given Insulin Aspart (Insulin Aspart (Novolog) 100 Unit/Ml Vial) 0 unit SQ ACHS [facility]; Protocol Last Admin: 12/02/23 12:36 Dose: Not Given Lactulose (Lactulose 20 Gm/30 Ml Cup) 20 gm PO BID [facility] Last Admin: 12/02/23 08:42 Dose: 20 gm Lorazepam (Lorazepam 2 Mg/Ml Inj) 1 mg IV Q6HR PRN PRN Reason: Anxiety Last Admin: 12/02/23 13:28 Dose: 1 mg Lorazepam (Lorazepam 0.5 Mg Tab) 0.5 mg PO Q4HR PRN PRN Reason: Anxiety Midodrine (Midodrine 5 Mg Tab) 15 mg PO AC-TID [facility] Last Admin: 12/02/23 14:34 Dose: Not Given Morphine Sulfate (Morphine Sulfate 4 Mg/Ml Syringe) 4 mg IVP Q4HR PRN PRN Reason: Pain Last Admin: 12/02/23 13:28 Dose: 4 mg Morphine Sulfate (Morphine Oral Soln 10 Mg/5 Ml Cup) 5 mg PO Q4HR PRN PRN Reason: Pain/Discomfort Multivitamins (Multivitamins, Thera 1 Each Tab) 1 each PO DAILY [facility] Last Admin: 12/02/23 08:42 Dose: 1 each Naloxone HCl (Naloxone 0.4 Mg/Ml 1 Ml Vial) 0.2 mg IV Q2M PRN PRN Reason: Opioid Reversal Nystatin (Nystatin 100,000 Unit/Ml Susp 500,000 Unit/5 Ml Cup) 500,000 unit PO QID [facility]; Protocol Last Admin: 12/02/23 14:35 Dose: Not Given Octreotide Acetate (Octreotide 100 Mcg/Ml Inj) 100 mcg SQ Q8H [facility] Last Admin: 12/02/23 14:34 Dose: Not Given Ondansetron HCl (Ondansetron 4 Mg/2 Ml Vial) 4 mg IVP Q8HR PRN PRN Reason: Nausea And Vomiting Last Admin: 11/30/23 21:55 Dose: 4 mg Pantoprazole Sodium (Pantoprazole 40 Mg Tablet) 40 mg PO DAILY PRN PRN Reason: Acid Reflux Sodium Bicarbonate (Salt And Soda Mouthwash 1,000 Ml) 5 ml PO 5XD [facility] Last Admin: 12/02/23 14:35 Dose: Not Given Sodium Bicarbonate (Sodium Bicarbonate Tab 650 Mg Tab) 650 mg PO BID [facility] Last Admin: 12/02/23 08:42 Dose: 650 mg Sodium Chloride (Saline Nasal Gel 14.1 Gm Tube) 1 applic NASAL Q4HR PRN PRN Reason: Dry Nasal Passages Trazodone HCl (Trazodone Hcl 100 Mg Tab) 100 mg PO HS PRN PRN Reason: Insomnia Social history: started smoking at the age of [age] 1 pack a day. In the past. Alcohol occasionally. Had also done marijuana for pain. Mother is living with her Physical examination: VITAL SIGNS: Afebrile, 93, 17, 85/48, GENERAL: Up in the recliner, often will doze off EYES: Pupils equal. Conjunctiva pale l. HEENT: External appearance of nose and ears normal, oral cavity mucositis NECK: JVD not raised; masses not palpable. HEART: First and second heart sounds are normal; significant edema LUNGS: Respiratory rate increased, decreased breath sounds. ABDOMEN: Soft with distention-, mild tender-on the right side r, liver spleen not palpable, no masses palpable. PSYCH: Answering questions appropriately, will sometimes dose of MUSCULOSKELETAL:No Clubbing/cyanosis;muscles-grossly intact. Some back pain INVESTIGATIONS, reviewed in the clinical context: December 01: White count 31 hemoglobin 6.7 platelets 91 potassium 5 BUN [address] abdomen pelvis [November 30] diffuse apoptotic metastatic disease with hepatomegaly. Mass within the noah hepatis. Anasarca changes. November 30: INR greater than 10 potassium 4.9 BUN 140 creatinine 2.08 November 25: White count 23.1 hemoglobin 8.2 platelets 430 potassium 3.6 BUN 81 creatinine 1.58 AST 201 ALT 68 alkaline phosphatase 1163 November 24: Sodium 137 potassium 4 BUN 81 creatinine 1.99 AST 262 ALT 82 alkaline phosphatase 1159 November 24, 2023: White count 22.5 hemoglobin 9.1 platelets 450 sodium 131 potassium 5.7 BUN 88 creatinine 1.96 AST 353 ALT 96 alkaline phosphatase 1140 ammonia 57 Troponin I 1.160 proBNP 1770 EKG tracing personally reviewed by me-normal sinus rhythm. Poor R wave progression. ST-T wave changes. Chest x-ray film personally reviewed by me-possible cardiomegaly Prior lab: November 16: Hemoglobin 8.1 white count 18.9 platelets [address] chest angio for PE:. Cardiomegaly. Hepatic metastasis. Adenopathy. Previous Brain MRI October 17: Unremarkable Liver biopsy-poorly differentiated adenocarcinoma CT abdomen pelvis with contrast October 14: Numerous large liver metastatic foci. Status postcholecystectomy. Low-density mass occupies noah hepatis. Suggestive of biliary or pancreatic primary. Assessment and plan: -Acute metabolic encephalopathy/possible hepatic encephalopathy, delirium. From acute kidney injury, and liver dysfunction: Not improving -Acute non-ST elevation VT, type II from hemodynamic mismatch. Patient not a candidate for IV heparin because of already on blood thinners.. No chest pain. Cardiology was consulted from ER. Not for any further intervention, per Dr. Smith who spoke to Dr. Regis Morrison.. - hepatic encephalopathy: Lactulose 20 g twice daily -Acute kidney injury possibly combination of prerenal and ATN.: Not improving Followed by nephrology -Hyperkalemia secondary to acute kidney injury. Cozaar. Potassium supplement.: Better Hold Cozaar, potassium Renal diet. IV sodium bicarbonate. -Acute pulm embolism underlying metastatic cancer, diagnosed November 16, 2023 Pradaxa, that is held -Cholangio-carcinoma poorly differentiated adenocarcinoma.: Worsening right chest port. MRI brain negative Given fluorouracil, leucovorin -Started on chemotherapy, November [address] Atkins Palliative chemotherapy. Patient is very poor candidate for any chemotherapy because of very poor functional status. Poor oral intake. Not doing well. -Microcytic anemia to include iron deficiency from underlying malignancy and nutritional component from decreased oral intake. Received IV iron previously -Bipolar disorder Abilify-hold. Trazodone. Lamictal -Diabetes mellitus type 2 on oral hypoglycemic Follow Accu-Cheks. Glipizide-hold -Oral mucositis -GERD Protonix -Moderate protein calorie malnutrition decreased oral intake. Ensure -Hypotensive shock: Controlled Grady wrap. Midodrine. Levophed drip -COPD in prior smoker Albuterol as needed -Gastrojejunal bypass 2013 Patient does follow with Dr. Agatha Jaeger -DNR Advance care planning [discussed with patient and the mother and the brother] 90 discussion with the patient mother at the bedside. Patient states she does not want to continue living like this. Patient is severely hypoalbuminemic. Has needed for several days. Recently pulm embolism. Has been on anticoagulation. Third spacing because of low albumin. Blood pressure running low requiring Levophed. Kidney function has been getting worse. Discussion of hospice was brought up. Patient had oftentimes thought of being full code but no confirm she wants to remain DNR. Oncology team will be meeting with the patient and family tomorrow. Hospice may be appropriate. Time spent for this about 25 minutes. Patient and family decided to proceed with hospice. Plan for discharge tomorrow home with hospice [facility] and following. Symptom management Past Medical History Past Medical History: Atrial Flutter, Cancer, Diabetes Mellitus, GERD/Reflux, Hyperlipidemia, Hypertension, Osteoarthritis (OA) Additional Past Medical History / Comment(s): migraines, chronic BACK PAIN. DDD, bulging disks, hx Skin CA. GETS NAUSEA WHEN EATING OFTEN, heart murmer, palpitations, hiatal hernia, constipation, History of Any Multi-Drug Resistant Organisms: None Reported Past Surgical History: Bariatric Surgery, Breast Surgery, Section, Cholecystectomy, Hernia Repair, Orthopedic Surgery, Uterine Ablation Additional Past Surgical History / Comment(s): RT Knee arthroscopy. KAILEY MULT TOES Surgery. Sinus Surgery. Gastric Bypass 2013. kailey Breast biopsy. CERVICAL CONE biopsy. PAIN PROC BACK, kailey eyelid procedure, incisional hernia repair, Past Anesthesia/Blood Transfusion Reactions: Previous Problems w/ Anesthesia, Motion Sickness Additional Past Anesthesia/Blood Transfusion Reaction / Comment(s): Woke up once during anesthesia. Mom has difficulty coming out of anesthesia and low b/p. Past Psychological History: Anxiety, Bipolar, Depression, Panic Disorder Smoking Status: Former smoker Past Alcohol Use History: Occasional Past Drug Use History: None Reported
[2023-12-03 00:11] VITALS: TEMP 97.6
[2023-12-03 11:02] VITALS: RESP 23
[2023-12-03 12:11] VITALS: BMI 31.1
--- NOTE | 2023-12-03 12:24 | P.PN ---
Subjective Progress Note Date: 12/03/23 Principal diagnosis: Hypotension secondary to dehydration with sepsis, and possible septic shock This is a 58-year-old female patient with a known history of chronic obstructive pulmonary disease, chronic tobacco dependence, atrial flutter, diabetes mellitus type 2 hypertension, hyperlipidemia bipolar disorder. She also has a recent diagnosis of cholangiocarcinoma with metastasis. She was to be initiated on cisplatin/Gemzar/Imfinzi however the patient has had recent multiple admissions delaying her treatment. She was readmitted here again on 11/24/2023 with shortness of breath and right sided abdominal pain. She was seen and evaluated by medical oncology who initiated the patient on FOLFOX. Today she had developed hypotension with mean arterial pressures in the 50s. She was subsequently transferred to the intensive care unit we are consulted for the same. She is seen in the ICU awake and alert in no acute distress. She is maintaining O2 saturations in the 90s on 3 L/min per nasal cannula. She is weak. She is afebrile. Chest x-ray is showing improvement in the pulmonary venous congestion. Blood cultures and procalcitonin level pending. Urinalysis revealing turbid urine with high WBCs and occasional bacteria. Culture pending. White count 28.2. Hemoglobin 9.9. Platelets 375. Sodium 137. Potassium 4.1. Bicarb 21. BUN 97. Creatinine 1.68. Glucose 157. AST 242. ALT 78. Alk phos 1164. On normal saline at 100 mL/h. Patient was today on 11/30/2023, remains hypotensive requiring norepinephrine at 0.1 mcg/kg/min, her IV fluid is 100 cc/h, patient received few fluid boluses, and does not seem to be making significant improvement. Hence more fluids will be given and will hold diuretics for now. She is on 3 L nasal cannula, saturating at 98%, blood pressure during my evaluation was 89/56 with mean arterial pressure of 69 temperature is 97.3. Patient is noted to have worsening leukocytosis with WBC of 16.2 hemoglobin 8.9. Electrolytes are normal bicarb is 18 creatinine is 2.22 slightly worse today compared to yesterday. Clinically the patient seems to be dehydrated and definitely needs more fluid boluses in the meantime we will continue her norepinephrine. Chest x-ray shows no evidence of pneumonia, and no evidence of pulmonary edema. Procalcitonin level is 4.66, and her serum cortisol level is normal. Urine output remains extremely poor and marginal, if no improvement with fluid boluses, patient could be considered for possible trial of diuretics although hoping to avoid diuretics because of her borderline blood pressure and relative hypotension requiring norepinephrine. Patient was seen and today on 12/01/2023, patient remains relatively hypotensive requiring norepinephrine at 0.14 mcg/kg/min IV fluid is running at 100 cc an hour, patient received multiple fluid boluses yesterday, and her urine output did not pick out hand much. Patient had her dose of midodrine increased to 15 mg 3 times daily remains with very marginal low blood pressure. Yesterday after multiple fluid boluses and the patient continued to have poor urine output, she was given a dose of Lasix 60 mg IV push, today she has a urine output of 30 to 40 cc/h. Her uric acid was noted to be high yesterday, and she received rasburicase. She may have a picture of tumor lysis syndrome. Nephrology remains on board, possibility of renal replacement is being considered, but she is not at that point yet. Patient is on 3 L nasal cannula chest x-ray showed minimal prominence of the pulmonary vasculature. Remains on Diflucan, Zosyn, Pradaxa, nystatin, and her midodrine dose was increased. Patient feels generally weak, continues to have some vague abdominal pain. Blood cultures remain negative WBC count 13.3 hemoglobin 7.4 electrolytes are normal bicarb is 22 BUN is 134 creatinine down to 2.25 from 2.41 yesterday. Enzymes are a bit el evated, alkaline phosphatase is 1022. CT of abdomen and pelvis showed mostly bibasilar atelectasis and small effusions on the chest x-ray, there is evidence of diffuse hepatic metastatic disease with hepatomegaly. There is a conglomerate mass within the noah hepatis anasarca with mild ascites is noted. Patient was seen and examined today on 12/02/2023, remains in the ICU, patient developed epistaxis yesterday, and her coag profile was quite abnormal with significantly elevated pro time, PTT, INR, patient received vitamin K, her coags are much better today compared to yesterday, and her epistaxis has resolved. Nonetheless patient remains on norepinephrine at 0.14 mcg/kg/min IV fluid at 75 cc/h. Remains on Diflucan and Zosyn. Patient remains marginal at best. Hemoglobin today is down to 6.7 WBC count is up to 31,000, patient is being followed by hematology/oncology. INR is down to 1.5 PTT is down to 34 fibrinogen remains at 360 renal profile is basically the same today with slight worsening of creatinine up to 2.18 from 2.08 yesterday.Liver enzymes remain elevated including alkaline phosphatase of 963 AST of [address] of abdomen pelvis yesterday was reviewed patient has diffuse hepatic metastatic disease with hepatomegaly, there is a conglomerate mass within the noah hepatis there is also anasarca changes in the abdomen. And basilar atelectasis with small effusions Patient evaluated today on 12/03/2023, patient remains in the ICU, apparently family met yesterday, and the decision was made to go to comfort care measures. Patient is now on comfort care measures, seems to be in no form of distress, she is very comfortable receiving morphine IV push intermittently for comfort. I am planning to transfer the patient today to a medical bed/private room and [facility] comfort care. As per family's and patient's wishes no labs were done today. Objective - Vital Signs Vital signs: Vital Signs Temp 97.6 F 12/03/23 00:00 Pulse 96 12/03/23 11:00 Resp 23 12/03/23 11:00 BP 74/36 12/03/23 11:00 Pulse Ox 90 L 12/02/23 09:00 FiO2 Intake & Output 12/02/23 12/03/23 12/03/23 18:59 06:59 18:59 Intake Total 1154 900 375 Output Total 800 485 30 Balance 354 415 345 Weight 90 kg Intake: IV 900 900 375 Sodium Chloride 0.9% 1, 900 900 375 000 ml @ 75 mls/hr IV . [id number] [facility] Rx#:[id number] Intake, IV Titration 254 Amount Norepinephrine 4 mg In 254 Sodium Chloride 0.9% 250 ml @ 0.03 MCG/KG/MIN 9. 487 mls/hr IV .Q24H [facility] Rx#:[id number] Output: Urine 800 485 30 Other: Voiding Method Indwelling Catheter Indwelling Catheter Indwelling Catheter - Exam GENERAL EXAM: Alert, weak, 58-year-old female, on 3 L nasal cannula, O2 saturation 93%, does not seem to be in distress. HEAD: Normocephalic. EYES: Normal reaction of pupils, equal size. NOSE: Clear with pink turbinates. THROAT: No erythema or exudates. NECK: No masses, no JVD. CHEST: No chest wall deformity. LUNGS: Diminished breath sounds at the bases no rhonchi no wheezing CVS: S1 and S2 normal with no audible murmur, regular rhythm. ABDOMEN: Slightly tender right upper quadrant, normal bowel sounds, no tenderness in the right lower quadrant, no rebound no guarding SKIN: No rashes CENTRAL NERVOUS SYSTEM: Patient is extremely calm, on narcotics for comfort measures. EXTREMITIES: No clubbing, 1+ bipedal edema, no cyanosis - Labs CBC & Chem 7: 12/02/23 07:04 12/02/23 06:23 Labs: Microbiology - Last 24 Hours (Table) 11/29/23 16:28 Blood Culture - Preliminary Blood Assessment and Plan Assessment: Impression: Hypotension secondary to dehydration and possible underlying infection, blood cultures have been negative Leukocytosis secondary to above Diffuse metastatic disease involving the liver Microcytic anemia Acute kidney injury, secondary to hypotension, sepsis, dehydration, and again possible septic shock. Transaminitis Recent diagnosis of metastatic cholangiocarcinoma unable to be initiated on cisplatin/Gemzar/Imfinzi due to frequent readmissions. Received FOLFOX on this admission November 25 and , diffuse liver metastasis noted Anasarca secondary to above Acute on chronic abdominal pain secondary to above Recent PE/DVT, on Pradaxa due to GAYLA metastatic bilateral pulmonary nodules Hyperlipidemia History of diastolic congestive heart failure Diabetes mellitus 40-pack year smoking history Possible tumor lysis syndrome with hyperuricemia, patient received rasburicase, Elevated pro time/acute coagulopathy secondary to metastatic disease to the liver Recommendation: Considering the patient's and family's wishes we will continue comfort care measures. Overall prognosis as it is seems to be extremely poor and guarded. Discussed with family members at bedside the plan to transfer the patient to a private room on the medical floor, Will follow as needed Time with Patient: Less than 30
[2023-12-03 14:12] VITALS: BP 71/47; PULSE 94
--- NOTE | 2023-12-03 15:15 | P.PN ---
Subjective Progress Note Date: 12/02/23 Principal diagnosis: Reason for follow-up is sepsis Patient is a 58-year-old female with a past medical history significant for diabetes mellitus hypertension hyperlipidemia atrial flutter and a recent diagnosis of cholangiocarcinoma in this patient presenting to the [facility] with mental status changes patient was noticed to have a hypotension and significant elevated white count concerning for sepsis for the patient was transferred to the ICU infectious disease was consulted. On today's evaluation that is 12/02/2023,the patient denies any fever or any chills, patient is breathing comfortably on 3 L current oxygen, the patient denies chest pain shortness of breath and no significant cough, patient denies any worsening abdominal pain, some nausea but no vomiting or diarrhea. Patient white count up to 31,000 today hemoglobin is down to 6.7 creatinine is 2.18 blood cultures currently pending Objective - Vital Signs Vital signs: Vital Signs Temp 97.2 F L 12/02/23 08:00 Pulse 112 H 12/02/23 10:15 Resp 28 H 12/02/23 10:15 BP 93/57 12/02/23 10:15 Pulse Ox 90 L 12/02/23 09:00 FiO2 Intake & Output 12/01/23 12/02/23 12/02/23 18:59 06:59 18:59 Intake Total 1104 1254 300 Output Total 400 775 300 Balance 704 479 0 Weight 90 kg Intake: IV 850 1000 300 Piperacillin-Tazobactam 3 100 100 .375 gm In Sodium Chloride 0.9% 100 ml @ 25 mls/hr IVPB Q8H [facility] Rx#: [id number] Sodium Chloride 0.9% 1, 750 900 300 000 ml @ 75 mls/hr IV . [id number] [facility] Rx#:[id number] Intake, IV Titration 254 254 Amount Norepinephrine 4 mg In 254 254 Sodium Chloride 0.9% 250 ml @ 0.03 MCG/KG/MIN 9. 487 mls/hr IV .Q24H [facility] Rx#:[id number] Output: Urine 400 775 300 Other: Voiding Method Indwelling Catheter Indwelling Catheter Indwelling Catheter - Exam GENERAL DESCRIPTION: Middle-age female lying in bed in no distress RESPIRATORY SYSTEM: Unlabored breathing , decreased breath sounds at bases HEART: S1 S2 regular rate and rhythm , ABDOMEN: Soft , mild distention and tenderness EXTREMITIES: No edema feet - Labs CBC & Chem 7: 12/02/23 07:04 12/02/23 06:23 Labs: Abnormal Lab Results - Last 24 Hours (Table) 12/01/23 12/01/23 12/01/23 Range/Units 15:19 17:00 17:07 WBC (3.8-10.6) k/uL RBC (3.80-5.40) m/uL Hgb (11.4-16.0) gm/dL Hct (34.0-46.0) % MCV (80.0-100.0) fL MCH (25.0-35.0) pg RDW (11.5-15.5) % Plt Count (150-450) k/uL Neutrophils # (1.3-7.7) k/uL Lymphocytes # (1.0-4.8) k/uL PT >130.0 H (10.0-12.5) sec INR >10.0 H* (<1.2) APTT 105.0 H* (22.0-30.0) sec Chloride 109 H (98-107) mmol/L Carbon Dioxide 17 L (22-30) mmol/L BUN 140 H* (7-17) mg/dL Creatinine 2.08 H (0.52-1.04) mg/dL Glucose 174 H (74-99) mg/dL POC Glucose (mg/dL) (70-110) mg/dL Uric Acid 9.6 H (3.7-7.4) mg/dL Calcium 8.0 L (8.4-10.2) mg/dL Phosphorus (2.5-4.5) mg/dL Total Bilirubin (0.2-1.3) mg/dL AST (14-36) U/L ALT (4-34) U/L Alkaline Phosphatase (38-126) U/L Total Protein (6.3-8.2) g/dL Albumin (3.5-5.0) g/dL 12/01/23 12/02/23 12/02/23 Range/Units 19:58 06:23 06:23 WBC (3.8-10.6) k/uL RBC (3.80-5.40) m/uL Hgb (11.4-16.0) gm/dL Hct (34.0-46.0) % MCV (80.0-100.0) fL MCH (25.0-35.0) pg RDW (11.5-15.5) % Plt Count (150-450) k/uL Neutrophils # (1.3-7.7) k/uL Lymphocytes # (1.0-4.8) k/uL PT 15.8 H (10.0-12.5) sec INR 1.5 H (<1.2) APTT 34.5 H (22.0-30.0) sec Chloride 111 H (98-107) mmol/L Carbon Dioxide 20 L (22-30) mmol/L BUN 139 H* (7-17) mg/dL Creatinine 2.18 H (0.52-1.04) mg/dL Glucose 216 H (74-99) mg/dL POC Glucose (mg/dL) 218 H (70-110) mg/dL Uric Acid (3.7-7.4) mg/dL Calcium 7.7 L (8.4-10.2) mg/dL Phosphorus 6.6 H (2.5-4.5) mg/dL Total Bilirubin 6.4 H (0.2-1.3) mg/dL AST 158 H (14-36) U/L ALT 75 H (4-34) U/L Alkaline Phosphatase 963 H (38-126) U/L Total Protein 4.9 L (6.3-8.2) g/dL Albumin 2.1 L (3.5-5.0) g/dL 12/02/23 12/02/23 Range/Units 06:28 07:04 WBC 31.0 H (3.8-10.6) k/uL RBC 2.74 L (3.80-5.40) m/uL Hgb 6.7 L* (11.4-16.0) gm/dL Hct 21.4 L (34.0-46.0) % MCV 78.4 L (80.0-100.0) fL MCH 24.6 L (25.0-35.0) pg RDW 22.0 H (11.5-15.5) % Plt Count 91 L D (150-450) k/uL Neutrophils # 29.7 H (1.3-7.7) k/uL Lymphocytes # 0.8 L (1.0-4.8) k/uL PT (10.0-12.5) sec INR (<1.2) APTT (22.0-30.0) sec Chloride (98-107) mmol/L Carbon Dioxide (22-30) mmol/L BUN (7-17) mg/dL Creatinine (0.52-1.04) mg/dL Glucose (74-99) mg/dL POC Glucose (mg/dL) 233 H (70-110) mg/dL Uric Acid (3.7-7.4) mg/dL Calcium (8.4-10.2) mg/dL Phosphorus (2.5-4.5) mg/dL Total Bilirubin (0.2-1.3) mg/dL AST (14-36) U/L ALT (4-34) U/L Alkaline Phosphatase (38-126) U/L Total Protein (6.3-8.2) g/dL Albumin (3.5-5.0) g/dL Microbiology - Last 24 Hours (Table) 11/29/23 16:28 Blood Culture - Preliminary Blood Assessment and Plan (1) Sepsis Current Visit: Yes Status: Acute Code(s): A41.9 - SEPSIS, UNSPECIFIED ORGANISM SNOMED Code(s): 59948458 Plan: 1patient with service in this patient who did have a hypotension tachycardia elevated white count, meeting criteria for SIRS with a question of sepsis possible abdominal source and this patient did have history of cholangiocar cinoma with a question of possible cholangitis versus other abdominal pathology as the patient did have abdominal distention and some tenderness 2-patient did have CT of abdominal pelvis with oral contrast did show ascities but no abscess or colitis 3-patient did have slight worsening of the white count need to monitor closely for now continue with Zosyn and adjust antibiotic on the basis of culture and clinical response Dictation was produced using [employer] dictation software. please excuse any g rammatical, word or spelling errors. Time with Patient: Less than 30
--- NOTE | 2023-12-03 17:59 | P.PN ---
Progress Note - Text Progress Note Date: 12/03/23 Chief Complaint: Tired short of breath This is a 58-year-old patient, follows Dr. Rincon. Chronic stable medical conditions include GERD, diabetes, hypertension, hyperlipidemia, osteoarthritis, hiatal hernia. Gastrojejunal gastric bypass in 2013. CHF with preserved EF October 11, 2023:, by Dr. Hooks: EGD with rigid dilator 57 Urdu to address lower esophageal sphincter and esophageal dysmotility.. 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 Port was placed recently. - oncologist Dr. Calin Atkins. Patient was discharged from the hospital last week following admission for congestive heart failure exacerbation with preserved ejection fraction. Also has some ascites but not felt to be enough for paracentesis. Patient is due to start chemotherapy shortly. Patient recently was admitted with CHF with preserved EF exacerbation. Subsequently was in the hospital from November 15 through November 18 with PE. Discharged on Eliquis. Just prior to leaving patient had decided to become DNR. Patient now presents feeling increasing short of breath. Tired. Decreased appetite. Not ambulating much. Decreased oral intake. In the ER troponin was 1.1. Patient denies any chest pain. Dr. Smith had spoken to the information technology advisor Dr. Regis Morrison. Not for any further intervention. Patient denies any cough. Just tired. November 24: Patient was seen this afternoon. Mother at the bedside. Patient more awake today. Tired. Decreased appetite. Discussed. Patient today wants to go back to being a full code. Oncology ordered patient to receive fluorouracil. And leucovorin. Patient initial symptoms felt to be combination of r acute kidney injury and hepatic encephalopathy. Patient remains on lactulose November 25: Sitting up in bed. Mother at the bedside. Following medication changes being done. Dilaudid is being discontinued. Will give Tylenol 3 as needed during daytime. [place] to continue at night. Lipitor Abilify continues to remain off. Patient is on Pradaxa instead of Eliquis. On Diflucan for oral candidiasis. On chemo agents per oncology. Slight improvement in hepatic numbers 11/26. Patient seen and examined. Vital signs this morning the patient had 74, heart rate of 100, blood pressure 103/68. Blood work done this morning showed WBC 25.5, hemoglobin 8.6, platelet count 407, sodium 132, potassium 4, BUN 18, creatinine 1.62. Complaining of weakness. Complaining of shortness of breath on exertion 11/27. Patient seen and examined. Complaining of difficulty in swallowing, states her mouth is very dry. Complaining of abdominal pain 11/29/2023 Patient is seen in follow-up today and is lethargic but arousable. Patients blood pressures have been low and now receiving midodrine and remains in the low 80's. Patient appears to have a septic picture and will consult pulmonary and ID and appreciate input and recommendations. Patient is reporting weakness, lightheadedness, with dizziness even sitting in the bed. Patient is significantly weak and may require ICU for closer monitoring. 11/30/2023 Patient is seen and evaluated in follow-up this morning in the ICU as she was transferred here for hypotension requiring pressor support. Patient remains on Levophed and also midodrine which is being increased per nephrology. Patient with multiple medical consultations following including oncology and infectious disease as there was concern for sepsis. White count was significantly elevated prior to transfer to the ICU and is trending down nicely and currently at 16.2. Patient is afebrile and hemoglobin is stable at 8.9. Kidney functions remain elevated and nephrology is following making adjustments. Current creatinine is 2.41 with a BUN of 130, sodium is 138 potassium is 4.8. Preliminary blood cultures are negative at this time. December 01, 2023: ICU. Patient's mother and brother at the bedside. Up in a recliner. Tired. Keeps dozing off. Significant edema. Some abdominal distention. Patient on Levophed. Lengthy discussion about CODE STATUS with the patient the mother and the brother. Patient prognosis is guarded. Patient had barely been eating for quite some time now. Renal function has not really improved. Not a candidate for dialysis because of low blood pressure. Otherwise overall patient not doing well. Patient confirmed that she is going to be a DNR. Because she did not want to be full code at some point. I did also talk about hospice. They will discuss this further. Prognosis very guarded. Patient's code mucositis with slight bleeding and discomfort in the mouth. December 01: ICU. Dr. Jarvis Marino spoke to the patient and family this morning. They have decided to proceed with hospice. Patient was sitting down with her boyfriend. Somewhat tired. Agrees to go for hospice. Had a meeting with patient's mother patient's brother's and people from [facility]. Lengthy discussion. This point patient will be going home with hospice. Arrangements are being made for tomorrow. Questions answered. Mor phine and Ativan is being used for symptom control. Patient is eating small amounts. Time spent about 50 minutes with over 30 minutes of discussion December 02: ICU. Patient formal lethargic. Spoke to the family/mother. Would like to continue with here. For comfort measures. Other medications being discontinued. No blood draws. Present not qualifying for inpatient hospice. Active Medications Acetaminophen/Codeine Phosphate (Acetaminophen-Codeine 300-30mg Tab) 1 each PO Q8HR PRN PRN Reason: Pain Last Admin: 12/02/23 10:20 Dose: 1 each Lorazepam (Lorazepam 2 Mg/Ml Inj) 1 mg IV Q6HR PRN PRN Reason: Anxiety Last Admin: 12/03/23 14:22 Dose: 1 mg Morphine Sulfate (Morphine Sulfate 4 Mg/Ml Syringe) 4 mg IVP Q4HR PRN PRN Reason: Pain Last Admin: 12/03/23 12:09 Dose: 4 mg Morphine Sulfate (Morphine Oral Soln 10 Mg/5 Ml Cup) 5 mg PO Q4HR PRN PRN Reason: Pain/Discomfort Sodium Chloride (Saline Nasal Gel 14.1 Gm Tube) 1 applic NASAL Q4HR PRN PRN Reason: Dry Nasal Passages Social history: started smoking at the age of [age] 1 pack a day. In the past. Alcohol occasionally. Had also done marijuana for pain. Mother is living with her Physical examination: VITAL SIGNS: 95, 23, 74 x 36 GENERAL: Laying in bed, somnolent EYES: Pupils equal. Conjunctiva pale l. HEENT: External appearance of nose and ears normal, oral cavity mucositis HEART: First and second heart sounds are normal; significant edema LUNGS: Respiratory rate increased, decreased breath sounds. ABDOMEN: Soft with distention-, mild tender-on the right side r, liver spleen not palpable, no masses palpable. PSYCH: Very somnolent INVESTIGATIONS, reviewed in the clinical context: December 01: White count 31 hemoglobin 6.7 platelets 91 potassium 5 BUN [address] abdomen pelvis [November 30] diffuse apoptotic metastatic disease with hepatomegaly. Mass within the noah hepatis. Anasarca changes. November 30: INR greater than 10 potassium 4.9 BUN 140 creatinine 2.08 November 25: White count 23.1 hemoglobin 8.2 platelets 430 potassium 3.6 BUN 81 creatinine 1.58 AST 201 ALT 68 alkaline phosphatase 1163 November 24: Sodium 137 potassium 4 BUN 81 creatinine 1.99 AST 262 ALT 82 alkaline phosphatase 1159 November 24, 2023: White count 22.5 hemoglobin 9.1 platelets 450 sodium 131 potassium 5.7 BUN 88 creatinine 1.96 AST 353 ALT 96 alkaline phosphatase 1140 ammonia 57 Troponin I 1.160 proBNP 1770 EKG tracing personally reviewed by me-normal sinus rhythm. Poor R wave progression. ST-T wave changes. Chest x-ray film personally reviewed by me-possible cardiomegaly Prior lab: November 16: Hemoglobin 8.1 white count 18.9 platelets [address] chest angio for PE:. Cardiomegaly. Hepatic metastasis. Adenopathy. Previous Brain MRI October 17: Unremarkable Liver biopsy-poorly differentiated adenocarcinoma CT abdomen pelvis with contrast October 14: Numerous large liver metastatic foci. Status postcholecystectomy. Low-density mass occupies noah hepatis. Suggestive of biliary or pancreatic primary. Assessment and plan: -Acute metabolic encephalopathy/possible hepatic encephalopathy, delirium. From acute kidney injury, and liver dysfunction: Not improving -Acute non-ST elevation KS, type II from hemodynamic mismatch. Patient not a candidate for IV heparin because of already on blood thinners.. No chest pain. Cardiology was consulted from ER. Not for any further intervention, per Dr. Smith who spoke to Dr. Regis Morrison.. - hepatic encephalopathy: Lactulose 20 g twice daily -Acute kidney injury possibly combination of prerenal and ATN.: Not improving Followed by nephrology -Hyperkalemia secondary to acute kidney injury. Cozaar. Potassium supplement.: Better Hold Cozaar, potassium Renal diet. IV sodium bicarbonate. -Acute pulm embolism underlying metastatic cancer, diagnosed November 16, 2023 Pradaxa, that is held -Cholangio-carcinoma poorly differentiated adenocarcinoma.: Worsening right chest port. MRI brain negative Given fluorouracil, leucovorin -Started on chemotherapy, November [address] Atkins Palliative chemotherapy. Patient is very poor candidate for any chemotherapy because of very poor functional status. Poor oral intake. Not doing well. -Microcytic anemia to include iron deficiency from underlying malignancy and nutritional component from decreased oral intake. Received IV iron previously -Bipolar disorder Abilify-hold. Trazodone. Lamictal -Diabetes mellitus type 2 on oral hypoglycemic Follow Accu-Cheks. Glipizide-hold -Oral mucositis -GERD Protonix -Moderate protein calorie malnutrition decreased oral intake. Ensure -Hypotensive shock: Controlled Grady wrap. Midodrine. Levophed drip -COPD in prior smoker Albuterol as needed -Gastrojejunal bypass 2013 Patient does follow with Dr. Agatha Jaeger -DNR Advance care planning [discussed with patient and the mother and the brother- December 02, 2023] 90 discussion with the patient mother at the bedside. Patient states she does not want to continue living like this. Patient is severely hypoalbuminemic. Has needed for several days. Recently pulm embolism. Has been on anticoagulation. Third spacing because of low albumin. Blood pressure running low requiring Levophed. Kidney function has been getting worse. Discussion of hospice was brought up. Patient had oftentimes thought of being full code but no confirm she wants to remain DNR. Oncology team will be meeting with the patient and family tomorrow. Hospice may be appropriate. Time spent for this about 25 minutes. Discussed with patient's mother today. Comfort care here. Not for discharge to home. DC all medications and labs except for comfort measures. Past Medical History Past Medical History: Atrial Flutter, Cancer, Diabetes Mellitus, GERD/Reflux, Hyperlipidemia, Hypertension, Osteoarthritis (OA) Additional Past Medical History / Comment(s): migraines, chronic BACK PAIN. DDD, bulging disks, hx Skin CA. GETS NAUSEA WHEN EATING OFTEN, heart murmer, palpitations, hiatal hernia, constipation, History of Any Multi-Drug Resistant Organisms: None Reported Past Surgical History: Bariatric Surgery, Breast Surgery, Section, Cholecystectomy, Hernia Repair, Orthopedic Surgery, Uterine Ablation Additional Past Surgical History / Comment(s): RT Knee arthroscopy. KAILEY MULT TOES Surgery. Sinus Surgery. Gastric Bypass 2013. kailey Breast biopsy. CERVICAL CONE biopsy. PAIN PROC BACK, kailey eyelid procedure, incisional hernia repair, Past Anesthesia/Blood Transfusion Reactions: Previous Problems w/ Anesthesia, Motion Sickness Additional Past Anesthesia/Blood Transfusion Reaction / Comment(s): Woke up once during anesthesia. Mom has difficulty coming out of anesthesia and low b/p. Past Psychological History: Anxiety, Bipolar, Depression, Panic Disorder Smoking Status: Former smoker Past Alcohol Use History: Occasional Past Drug Use History: None Reported
[2023-12-04] MEDS: MORPHINE SULFATE 4 MG/ML SYRINGE IVP PRN (00:50)
--- NOTE | 2023-12-04 20:09 | P.DS ---
Providers Date of admission: 11/24/23 15:08 Expected date of discharge: 12/04/23 Attending physician: Job Moyer Consults: 11/24/23 15:06 Consult Physician Urgent Consulting Provider: Israel Marino Consult Reason/Comments: Liver cancer Do you want consulting provider notified?: Yes 11/25/23 10:37 Consult Physician Routine Consulting Provider: Ariana Gabriel Consult Reason/Comments: hepatorenal syndrome Do you want consulting provider notified?: Yes 11/29/23 14:33 Consult Physician Urgent Consulting Provider: Jan Santana Consult Reason/Comments: sepsis?? septic shock Do you want consulting provider notified?: Yes 11/29/23 14:38 Consult Physician Stat Consulting Provider: Panchito Rasheed Consult Reason/Comments: hypotensive, undergoing chemo, needs ICU Do you want consulting provider notified?: Yes Primary care physician: [facility] Course: Chief Complaint: Tired short of breath This is a 58-year-old patient, follows Dr. Rincon. Chronic stable medical conditions include GERD, diabetes, hypertension, hyperlipidemia, osteoarthritis, hiatal hernia. Gastrojejunal gastric bypass in 2013. CHF with preserved EF October 11, 2023:, by Dr. Hooks: EGD with rigid dilator 57 Austrian to address lower esophageal sphincter and esophageal dysmotility.. 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 Port was placed recently. - oncologist Dr. Calin Atkins. Patient was discharged from the hospital last week following admission for congestive heart failure exacerbation with preserved ejection fraction. Also has some ascites but not felt to be enough for paracentesis. Patient is due to start chemotherapy shortly. Patient recently was admitted with CHF with preserved EF exacerbation. Leiva bsequently was in the hospital from November 15 through November 18 with PE. Discharged on Eliquis. Just prior to leaving patient had decided to become DNR. Patient now presents feeling increasing short of breath. Tired. Decreased appetite. Not ambulating much. Decreased oral intake. In the ER troponin was 1.1. Patient denies any chest pain. Dr. Smith had spoken to the leather carver Dr. Regis Morrison. Not for any further intervention. Patient denies any cough. Just tired. November 24: Patient was seen this afternoon. Mother at the bedside. Patient more awake today. Tired. Decreased appetite. Discussed. Patient today wants to go back to being a full code. Oncology ordered patient to receive fluorouracil. And leucovorin. Patient initial symptoms felt to be combination of r acute kidney injury and hepatic encephalopathy. Patient remains on lactulose November 25: Sitting up in bed. Mother at the bedside. Following medication changes being done. Dilaudid is being discontinued. Will give Tylenol 3 as needed during daytime. [place] to continue at night. Lipitor Abilify continues to remain off. Patient is on Pradaxa instead of Eliquis. On Diflucan for oral candidiasis. On chemo agents per oncology. Slight improvement in hepatic numbers 11/26. Patient seen and examined. Vital signs this morning the patient had 74, heart rate of 100, blood pressure 103/68. Blood work done this morning showed WBC 25.5, hemoglobin 8.6, platelet count 407, sodium 132, potassium 4, BUN 18, creatinine 1.62. Complaining of weakness. Complaining of shortness of breath on exertion 11/27. Patient seen and examined. Complaining of difficulty in swallowing, states her mouth is very dry. Complaining of abdominal pain 11/29/2023 Patient is seen in follow-up today and is lethargic but arousable. Patients blood pressures have been low and now receiving midodrine and remains in the low 80's. Patient appears to have a septic picture and will consult pulmonary and ID and appreciate input and recommendations. Patient is reporting weakness, lightheadedness, with dizziness even sitting in the bed. Patient is significantly weak and may require ICU for closer monitoring. 11/30/2023 Patient is seen and evaluated in follow-up this morning in the ICU as she was transferred here for hypotension requiring pressor support. Patient remains on Levophed and also midodrine which is being increased per nephrology. Patient with multiple medical consultations following including oncology and infectious disease as there was concern for sepsis. White count was significantly elevated prior to transfer to the ICU and is trending down nicely and currently at 16.2. Patient is afebrile and hemoglobin is stable at 8.9. Kidney functions remain elevated and nephrology is following making adjustments. Current creatinine is 2.41 with a BUN of 130, sodium is 138 potassium is 4.8. Preliminary blood cultures are negative at this time. December 01, 2023: ICU. Patient's mother and brother at the bedside. Up in a recliner. Tired. Keeps dozing off. Significant edema. Some abdominal distention. Patient on Levophed. Lengthy discussion about CODE STATUS with the patient the mother and the brother. Patient prognosis is guarded. Patient had barely been eating for quite some time now. Renal function has not really improved. Not a candidate for dialysis because of low blood pressure. Otherwise overall patient not doing well. Patient confirmed that she is going to be a DNR. Because she did not want to be full code at some point. I did also talk about hospice. They will discuss this further. Prognosis very guarded. Patient's code mucositis with slight bleeding and discomfort in the mouth. December 01: ICU. Dr. Jarvis Marino spoke to the patient and family this morning. They have decided to proceed with hospice. Patient was sitting down with her boyfriend. Somewhat tired. Agrees to go for hospice. Had a meeting with patient's mother patient's brother's and people from [facility]. Lengthy discussion. This point patient will be going home with hospice. Arrangements are being made for tomorrow. Questions answered. Morphine and Ativan is being used for symptom control. Patient is eating small amounts. Time spent about 50 minutes with over 30 minutes of discussion December 02: ICU. Patient formal lethargic. Spoke to the family/mother. Would like to continue with here. For comfort measures. Other medications being discontinued. No blood draws. Present not qualifying for inpatient hospice. December 03: Patient has been comfort care. Patient early hours of this morning. Social history: started smoking at the age of [age] 1 pack a day. In the past. Alcohol o ccasionally. Had also done marijuana for pain. Mother is living with her The INVESTIGATIONS, reviewed in the clinical context: December 01: White count 31 hemoglobin 6.7 platelets 91 potassium 5 BUN [address] abdomen pelvis [November 30] diffuse apoptotic metastatic disease with hepatomegaly. Mass within the noah hepatis. Anasarca changes. November 30: INR greater than 10 potassium 4.9 BUN 140 creatinine 2.08 November 25: White count 23.1 hemoglobin 8.2 platelets 430 potassium 3.6 BUN 81 creatinine 1.58 AST 201 ALT 68 alkaline phosphatase 1163 November 24: Sodium 137 potassium 4 BUN 81 creatinine 1.99 AST 262 ALT 82 alkaline phosphatase 1159 November 24, 2023: White count 22.5 hemoglobin 9.1 platelets 450 sodium 131 potassium 5.7 BUN 88 creatinine 1.96 AST 353 ALT 96 alkaline phosphatase 1140 ammonia 57 Troponin I 1.160 proBNP 1770 EKG tracing personally reviewed by me-normal sinus rhythm. Poor R wave progression. ST-T wave changes. Chest x-ray film personally reviewed by me-possible cardiomegaly Prior lab: November 16: Hemoglobin 8.1 white count 18.9 platelets [address] chest angio for PE:. Cardiomegaly. Hepatic metastasis. Adenopathy. Previous Brain MRI October 17: Unremarkable Liver biopsy-poorly differentiated adenocarcinoma CT abdomen pelvis with contrast October 14: Numerous large liver metastatic foci. Status postcholecystectomy. Low-density mass occupies noah hepatis. Suggestive of biliary or pancreatic primary. Cause of : Cholangiocarcinoma Assessment and plan: -Acute metabolic encephalopathy/possible hepatic encephalopathy, delirium. From acute kidney injury, and liver dysfunction: Not improving -Acute non-ST elevation IA, type II from hemodynamic mismatch. Patient not a candidate for IV heparin because of already on blood thinners.. No chest pain. Cardiology was consulted from ER. Not for any further intervention, per Dr. Smith who spoke to Dr. Regis Morrison.. - hepatic encephalopathy: Lactulose 20 g twice daily -Acute kidney injury possibly combination of prerenal and ATN.: Not improving Followed by nephrology -Hyperkalemia secondary to acute kidney injury. Cozaar. Potassium supplement.: Better Hold Cozaar, potassium Renal diet. IV sodium bicarbonate. -Acute pulm embolism underlying metastatic cancer, diagnosed November 16, 2023 Pradatoyin, that is held -Cholangio-carcinoma poorly differentiated adenocarcinoma.: Worsening right chest port. MRI brain negative Given fluorouracil, leucovorin -Started on chemotherapy, November [address] Atkins Palliative chemotherapy. Patient is very poor candidate for any chemotherapy because of very poor functional status. Poor oral intake. Not doing well. -Microcytic anemia to include iron deficiency from underlying malignancy and nutritional component from decreased oral intake. Received IV iron previously -Bipolar disorder Abilify-hold. Trazodone. Lamictal -Diabetes mellitus type 2 on oral hypoglycemic Follow Accu-Cheks. Glipizide-hold -Oral mucositis -GERD Protonix -Moderate protein calorie malnutrition decreased oral intake. Ensure -Hypotensive shock: Controlled Grady wrap. Midodrine. Levophed drip -COPD in prior smoker Albuterol as needed -Gastrojejunal bypass 2013 Patient does follow with Dr. Agatha Jaeger -Comfort care Advance care planning [discussed with patient and the mother and the brother- December 02, 2023] 90 discussion with the patient mother at the bedside. Patient states she does not want to continue living like this. Patient is severely hypoalbuminemic. Has needed for several days. Recently pulm embolism. Has been on anticoagulation. Third spacing because of low albumin. Blood pressure running low requiring Levophed. Kidney function has been getting worse. Discussion of hospice was brought up. Patient had oftentimes thought of being full code but no confirm she wants to remain DNR. Oncology team will be meeting with the patient and family tomorrow. Hospice may be appropriate. Time spent for this about 25 minutes. Disposition: Patient Past Medical History Past Medical History: Atrial Flutter, Cancer, Diabetes Mellitus, GERD/Reflux, Hyperlipidemia, Hypertension, Osteoarthritis (OA) Additional Past Medical History / Comment(s): migraines, chronic BACK PAIN. DDD, bulging disks, hx Skin CA. GETS NAUSEA WHEN EATING OFTEN, heart murmer, palpitations, hiatal hernia, constipation, History of Any Multi-Drug Resistant Organisms: None Reported Past Surgical History: Bariatric Surgery, Breast Surgery, Section, Cholecystectomy, Hernia Repair, Orthopedic Surgery, Uterine Ablation Additional Past Surgical History / Comment(s): RT Knee arthroscopy. KAILEY MULT TOES Surgery. Sinus Surgery. Gastric Bypass 2013. kailey Breast biopsy. CERVICAL CONE biopsy. PAIN PROC BACK, kailey eyelid procedure, incisional hernia repair, Past Anesthesia/Blood Transfusion Reactions: Previous Problems w/ Anesthesia, Motion Sickness Additional Past Anesthesia/Blood Transfusion Reaction / Comment(s): Woke up once during anesthesia. Mom has difficulty coming out of anesthesia and low b/p. Past Psychological History: Anxiety, Bipolar, Depression, Panic Disorder Smoking Status: Former smoker Past Alcohol Use History: Occasional Past Drug Use History: None Reported Plan - Discharge Summary Discharge Rx Participant: Yes New Discharge Prescriptions: No Action Atorvastatin [Lipitor] 10 mg PO DAILY traZODone HCL 100 mg PO HS PRN PRN Reason: Insomnia Biotin [Biotin Disolve] 10,000 mcg PO DAILY Ferrous Sulfate [Iron (65 MG Elemental)] 325 mg PO DAILY Albuterol Sulfate [Albuterol Sulfate Hfa] 2 puff INHALATION RT-Q6H PRN PRN Reason: Shortness Of Breath Potassium Chloride ER [K-Dur 10] 10 meq PO DAILY Dapagliflozin Propanediol [Farxiga] 10 mg PO DAILY Acetaminophen-Codeine 300-30mg [Tylenol w/codeine #3] 1 tab PO BID PRN PRN Reason: Pain glipiZIDE [Glucotrol] 5 mg PO BID ARIPiprazole [Abilify] 5 mg PO DAILY #30 tab Nystatin [Nystatin Oral Susp] 500,000 unit PO Q4H HYDROcodone/APAP 5-325MG [[place]vale 5-325] 1 tab PO HS Fluconazole [Diflucan] 150 mg PO Q2D PRN PRN Reason: yeast infection Apixaban [Eliquis Starter Pack (for VTE)] See Taper PO BID Multivitamin [Multivitamins Adult Gummies] 1 tab PO DAILY Metoprolol Tartrate 12.5 mg PO DAILY Pantoprazole [Protonix] 40 mg PO DAILY PRN PRN Reason: Acid Reflux Calcium Carbonate/Vitamin D3 [Calcium 500 mg Chewable Tablet] 2 tab PO DAILY Losartan [Cozaar] 12.5 mg PO DAILY Furosemide [Lasix] 20 mg PO DAILY hydrOXYzine pamoate [Vistaril] 50 mg PO QID PRN PRN Reason: Anxiety Discharge Medication List Atorvastatin [Lipitor] 10 mg PO DAILY 07/19/17 [History] traZODone HCL 100 mg PO HS PRN 07/26/20 [History] Multivitamin [Multivitamins Adult Gummies] 1 tab PO DAILY 02/27/22 [History] Biotin [Biotin Disolve] 10,000 mcg PO DAILY 09/02/22 [History] Metoprolol Tartrate 12.5 mg PO DAILY 09/02/22 [History] Calcium Carbonate/Vitamin D3 [Calcium 500 mg Chewable Tablet] 2 tab PO DAILY 10/06/23 [History] Pantoprazole [Protonix] 40 mg PO DAILY PRN 10/06/23 [History] Ferrous Sulfate [Iron (65 MG Elemental)] 325 mg PO DAILY 10/08/23 [History] Albuterol Sulfate [Albuterol Sulfate Hfa] 2 puff INHALATION RT-Q6H PRN 10/15/23 [History] Losartan [Cozaar] 12.5 mg PO DAILY 10/20/23 [History] Acetaminophen-Codeine 300-30mg [Tylenol w/codeine #3] 1 tab PO BID PRN 11/16/23 [History] Dapagliflozin Propanediol [Farxiga] 10 mg PO DAILY 11/16/23 [History] Furosemide [Lasix] 20 mg PO DAILY 11/16/23 [History] Potassium Chloride ER [K-Dur 10] 10 meq PO DAILY 11/16/23 [History] glipiZIDE [Glucotrol] 5 mg PO BID 11/16/23 [History] ARIPiprazole [Abilify] 5 mg PO DAILY #30 tab 11/19/23 [Rx] Apixaban [Eliquis Starter Pack (for VTE)] See Taper PO BID 11/24/23 [History] Fluconazole [Diflucan] 150 mg PO Q2D PRN 11/24/23 [History] HYDROcodone/APAP 5-325MG [[place] 5-325] 1 tab PO HS 11/24/23 [History] Nystatin [Nystatin Oral Susp] 500,000 unit PO Q4H 11/24/23 [History] hydrOXYzine pamoate [Vistaril] 50 mg PO QID PRN 11/24/23 [History] Discharge Disposition: - Preliminary Cause of Preliminary Cause of : Cholangiocarcinoma
--- NOTE | 2023-12-07 14:26 | P.PN ---
Subjective Progress Note Date: 12/03/23 Principal diagnosis: Reason for follow-up is sepsis Patient is a 58-year-old female with a past medical history significant for diabetes mellitus hypertension hyperlipidemia atrial flutter and a recent diagnosis of cholangiocarcinoma in this patient presenting [facility] [place] [facility] with mental status changes patient was noticed to have a hypotension and significant elevated white count concerning for sepsis for the patient was transferred to the ICU infectious disease was consulted. On today's evaluation that is 12/03/2023,the patient remains to be afebrile, patient is on 2 L nasal current oxygen seem to be breathing comfortably patient noticed to be hypotensive feeling weak and apparently getting up and possible signing up for hospice. No new labs were obtained today blood culture remains to be negative Objective - Vital Signs Vital signs: Vital Signs Temp 97.6 F 12/03/23 00:00 Pulse 96 12/03/23 11:00 Resp 23 12/03/23 11:00 BP 74/36 12/03/23 11:00 Pulse Ox 90 L 12/02/23 09:00 FiO2 Intake & Output 12/02/23 12/03/23 12/03/23 18:59 06:59 18:59 Intake Total 1154 900 375 Output Total 800 485 30 Balance 354 415 345 Weight 90 kg Intake: IV 900 900 375 Sodium Chloride 0.9% 1, 900 900 375 000 ml @ 75 mls/hr IV . [id number] MARILOU Rx#:[id number] Intake, IV Titration 254 Amount Norepinephrine 4 mg In 254 Sodium Chloride 0.9% 250 ml @ 0.03 MCG/KG/MIN 9. 487 mls/hr IV .Q24H MARILOU Rx#:[id number] Output: Urine 800 485 30 Other: Voiding Method Indwelling Catheter Indwelling Catheter Indwelling Catheter - Labs CBC & Chem 7: 12/02/23 07:04 12/02/23 06:23 Labs: Microbiology - Last 24 Hours (Table) 11/29/23 16:28 Blood Culture - Preliminary Blood Assessment and Plan (1) Sepsis Current Visit: Yes Status: Acute Code(s): A41.9 - SEPSIS, UNSPECIFIED ORGANISM SNOMED Code(s): 69139654 Plan: 1patient with service in this patient who did have a hypotension tachycardia elevated white count, meeting criteria for SIRS with a question of sepsis possible abdominal source and this patient did have history of chol angiocarcinoma with a question of possible cholangitis versus other abdominal pathology as the patient did have abdominal distention and some tenderness 2-patient did have CT of abdominal pelvis with oral contrast did show ascities but no abscess or colitis 3-patient did have worsening leukocytosis and hypotension patient family leaning towards hospice which may be appropriate, we will go ahead and discontinue Zosyn discussed with the nursing staff Dictation was produced using [employer] dictation software. please excuse any grammatical, word or spelling errors.
== END 2023-12-04 02:45 | disposition expired | DRG 435 ==
LOC: EC 12:14 → 3SCARD 15:08 → 5NMEDONC 11-26 21:49 → 2SICU 11-29 15:59 → 5NMEDONC 12-03 15:22
PROVIDERS: ADMIT Hospitalist; ATTEND Hospitalist
PROC: 3E03305 Introduction of Other Antineoplastic into Peripheral Vein, Percutaneous Approach (ICD-10-PCS; principal; 2023-11-25)
PROC: 3E033XZ Introduction of Vasopressor into Peripheral Vein, Percutaneous Approach (ICD-10-PCS; 2023-11-30)
DX: C22.1 Intrahepatic bile duct carcinoma (principal); A41.9 Sepsis, unspecified organism; N17.0 Acute kidney failure with tubular necrosis; G93.41 Metabolic encephalopathy; I21.A1 Myocardial infarction type 2; I26.99 Other pulmonary embolism without acute cor pulmonale; I50.33 Acute on chronic diastolic (congestive) heart failure; R65.21 Severe sepsis with septic shock; K76.7 Hepatorenal syndrome; C78.7 Secondary malignant neoplasm of liver and intrahepatic bile duct; E44.0 Moderate protein-calorie malnutrition; E87.1 Hypo-osmolality and hyponatremia; R18.8 Other ascites; B37.0 Candidal stomatitis; C78.01 Secondary malignant neoplasm of right lung; C78.02 Secondary malignant neoplasm of left lung; E87.20 Acidosis, unspecified; D68.4 Acquired coagulation factor deficiency; J98.11 Atelectasis; I48.92 Unspecified atrial flutter; F05 Delirium due to known physiological condition; Z66 Do not resuscitate; Z51.5 Encounter for palliative care; K76.82 Hepatic encephalopathy; I11.0 Hypertensive heart disease with heart failure; F31.9 Bipolar disorder, unspecified; E83.39 Other disorders of phosphorus metabolism; E88.09 Other disorders of plasma-protein metabolism, not elsewhere classified; J44.9 Chronic obstructive pulmonary disease, unspecified; E11.9 Type 2 diabetes mellitus without complications; D63.0 Anemia in neoplastic disease; D50.8 Other iron deficiency anemias; Z68.31 Body mass index [BMI] 31.0-31.9, adult; R57.8 Other shock; E78.5 Hyperlipidemia, unspecified; E86.0 Dehydration; E87.5 Hyperkalemia; K21.9 Gastro-esophageal reflux disease without esophagitis; F41.0 Panic disorder [episodic paroxysmal anxiety]; G89.29 Other chronic pain; K12.30 Oral mucositis (ulcerative), unspecified; K44.9 Diaphragmatic hernia without obstruction or gangrene; M19.90 Unspecified osteoarthritis, unspecified site; R04.0 Epistaxis; Z85.828 Personal history of other malignant neoplasm of skin; Z87.891 Personal history of nicotine dependence; Z88.8 Allergy status to other drugs, medicaments and biological substances; Z79.02 Long term (current) use of antithrombotics/antiplatelets; Z79.84 Long term (current) use of oral hypoglycemic drugs; Z79.899 Other long term (current) drug therapy; Z86.711 Personal history of pulmonary embolism; Z98.84 Bariatric surgery status; Z80.3 Family history of malignant neoplasm of breast; Z80.8 Family history of malignant neoplasm of other organs or systems
CPT/HCPCS: 36415; 71045; 71046; 74176; 76770; 80048; 80053; 81001; 82140; 82533; 82728; 83540; 83550; 83605; 83735; 83880; 84100; 84145; 84484; 84550; 85025; 85384; 85610; 85730; 86140; 87040; 93005; 94640; 96361; 96374; 96375; 96376; 99285